=== PATIENT | female | born 1940 | race Caucasian/White ===

== ENCOUNTER 2016-04-02 20:04 | Inpatient (IN) ==
[2016-04-02] MEDS ORDERED: 0.9 % Sodium Chloride 500 ML IVC ONE (20:35)
[2016-04-02] MEDS ORDERED: Ondansetron 4 MG/2 ML VIAL IVP ONE (20:35)
--- NOTE | 2016-04-02 20:36 | Emergency Department Note ---
Disposition Clinical Impression: Hyperkalemia, Acute on chronic renal failure Disposition: Admitted As Inpatient Condition: Fair Referrals: NO,PCP [Non-Partnered Physician] - Forms: ED Satisfaction Letter Time of Disposition: 22:11 Nausea/Vomiting/Diarrhea HPI - General Chief complaint: ED Nausea/Vomiting/Diarrhea Stated complaint: n/v X2 days Time Seen by Provider: 04/02/16 20:09 Source: patient, EMS Nursing Notes Reviewed: Yes Vital Signs Reviewed: Yes - History of Present Illness HPI Narrative: Patient complaining of 3 episodes of vomiting today. She denies any abdominal pain. She denies any fevers. She denies any hematemesis. She has taken Zofran at home but states she vomited the pill back up. She states she is unable to keep any fluids or solids down. - Related Data Home Medications Medication Instructions Recorded Confirmed Cholecalciferol (Vitamin D3) 50,000 unit PO 2XW 11/02/14 04/02/16 [Vitamin D3] Magnesium Oxide [Magnesium] 400 mg PO BID 11/02/14 04/02/16 Ipratropium/Albuterol Neb [Duoneb] 3 ml IH Q4HR PRN 04/26/15 04/02/16 Cyanocobalamin (Vitamin B-12) 1,000 mcg PO DAILY 09/03/15 04/02/16 [Vitamin B12] Zinc Sulfate 220 mg PO BID 09/03/15 04/02/16 Insulin DETEMIR [Levemir Flextouch] 18 unit SQ BID 10/07/15 04/02/16 Insulin LISPRO [Humalog Kwikpen 0 unit SQ ACHS 10/07/15 04/02/16 U-100] Lactulose 15 ml PO TID PRN 10/07/15 04/02/16 Levothyroxine [Synthroid] 100 mcg PO QAM 10/07/15 04/02/16 Pantoprazole Sodium [Protonix] 40 mg PO DAILY 10/07/15 04/02/16 Acetaminophen with Codeine 1 tab PO Q6H PRN 12/22/15 04/02/16 [Acetaminophen-Cod #4 Tablet] Oxygen 2 l NS AD 12/22/15 04/02/16 Ondansetron ODT [Zofran ODT] 4 mg SL TID PRN 04/02/16 04/02/16 Ranitidine HCl [Ranitidine HCl] 150 mg PO BID 04/02/16 04/02/16 Previous Rx's Medication Instructions Recorded Aspirin 81 mg PO DAILY 30 Days 11/08/14 Rifaximin [Xifaxan] 550 mg PO BID #60 tablet 05/01/15 Allergies Allergy/AdvReac Type Severity Reaction Status Date / Time No Known Allergies Allergy Verified 06/29/15 16:22 Review of Systems: Patient denies any fevers however reports an occasional chill. She denies any headaches or visual changes. She denies any syncope. She does report 3 episodes of vomiting today. She states she is nauseated at this time. She denies any hematemesis. She denies any shortness of breath or chest pain. She denies any abdominal pain. She denies any diarrhea. She reports her abdomen appears as normal after she has had a paracentesis. She denies any pain or swelling in any of her extremities. She denies any trouble with constipation and states that her last bowel movement was this morning. She denies any hematochezia or melena. All systems ED: reviewed and negative except as stated. Past Medical History - Past Medical History Medical history: Reports: arthritis, cirrhosis, COPD, dementia, diabetes, GERD, glaucoma, hepatitis, hyperlipidemia, hypertension, liver disease, osteoporosis, renal disease, thyroid disease Surgical history: Reports: herniorrhaphy, other Psychiatric history: Reports: no psych history OFFICE SYSTEM ANALYST history: Reports: non-contributory - Social History Smoking Status: Never smoker Smokeless Tobacco Status: No Alcohol use: Reports: none Drug use: Reports: none Physical Exam - General Limitations: no limitations General appearance: alert, in no apparent distress - Head Head exam: atraumatic, normocephalic, normal inspection - Eye Eye exam: Present: normal appearance, PERRL, EOMI. Absent: scleral icterus - ENT ENT exam: normal exam, normal oropharynx, mucous membranes moist - Neck Neck exam: Present: normal inspection, full ROM, trachea midline - Chest Chest inspection: Present: normal inspection, symmetric chest wall rise. Absent : tenderness - Respiratory Respiratory exam: Present: normal lung sounds bilaterally. Absent: respiratory distress - Cardiovascular Cardiovascular exam: Present: regular rate, normal rhythm, normal heart sounds - Abdominal Exam Abdominal exam: Present: soft, Non-Tender (No pain at rest or on palpation T4 shallow.), normal bowel sounds, other (Patient reports abdomen appears normal to her.). Absent: tenderness, distention, guarding, rebound, rigidity - Extremities Exam Extremities exam: Present: normal inspection, full ROM. Absent: tenderness, pedal edema - Back Exam Back exam: Present: normal inspection, full ROM. Absent: tenderness - Neurological Exam Neurological exam: Present: alert, oriented X3 - Psychiatric Psychiatric exam: Present: normal affect, normal mood - Skin Skin exam: Present: warm, dry, intact, normal color. Absent: rash, cyanosis Course Course Narrative: Female patient with a history of ascites that a paracentesis every Wednesday presenting to the emergency department with 3 episodes of vomiting today. She denies any fever or abdominal pain. She did have paracentesis on Wednesday. Her abdomen is somewhat distended but patient states this is normal for her. She does have a history of cirrhosis. She does not appear jaundiced at this time. She is resting in bed in no apparent distress. On palpation of her abdomen it is soft and nontender. She denies any diarrhea. She states she has tried Zofran but was unable to keep the pill down. We will treat patient's nausea with Zofran while she is here. We will also give patient a small fluid bolus. We will do basic abdominal labs. - Reevaluation(s) Reevaluation #1: Patient's hemoglobin as low as is her white count. She has an increased creatinine we will admit patient for acute on chronic renal disease as well as hyperkalemia. We have started patient on insulin and glucose will she is here as well as Kayexalate. We have given her calcium gluconate. We will start patient on a bicarbonate drip per Dr. Vences's request. Time: 22:02 Vital Signs Temperature 97.8 F 04/02/16 20:10 Pulse Rate 77 04/02/16 20:10 Respiratory Rate 18 04/02/16 20:10 Blood Pressure 144/62 04/02/16 20:10 O2 Sat by Pulse Oximetry 98 04/02/16 20:10 Temperature 97.8 F 04/02/16 20:10 Pulse Rate 76 04/02/16 20:13 Respiratory Rate 18 04/02/16 20:13 Blood Pressure 162/62 04/02/16 20:13 O2 Sat by Pulse Oximetry 100 04/02/16 20:13 Oxygen Delivery Oxygen Delivery Nasal Cannula Nausea/Vomiting/Diarrhea - Medical Records Medical records reviewed: Yes I reviewed the patient's medical records. - Lab Data Lab results reviewed: Yes I reviewed the patient's lab results. Result diagrams: 04/02/16 20:58 04/02/16 20:58 Lab Results 04/02/16 04/02/16 04/02/16 Range/Units 20:58 20:58 21:28 WBC 4.0 L (4.3-11.1) K/mcL RBC 2.76 L (3.82-4.97) M/mcL Hgb 7.6 L (11.5-15.4) g/dL Hct 25.5 L (35.3-44.9) % MCV 92.4 (83.0-100.0) fL MCH 27.5 L (28.0-33.3) pg MCHC 29.8 L (31.6-35.5) g/dL RDW 17.4 H (11.5-14.5) % Plt Count 79 L (140-400) K/mcL MPV 10.3 (9.4-12.4) fL Immature Gran % 0.2 (0-4) % Seg Neutrophils % 71.1 % Lymphocytes % 13.9 % Monocytes % 11.4 % Eosinophils % 2.7 % Basophils % 0.7 % Neutrophils # 2.8 (1.6-8.9) K/mcL Lymphocytes # 0.6 (0.6-4.6) K/mcL Monocytes # 0.5 (0.0-1.3) K/mcL Eosinophils # 0.1 (0.0-0.6) K/mcL Basophils # 0.0 (0.0-0.2) K/mcL Immature Plt Fraction 2.1 (1.1-6.1) % Sodium 139 (136-145) mEq/L Potassium 6.2 H (3.5-4.5) mEq/L Chloride 109 (98-109) mEq/L Carbon Dioxide 21 (19-29) mEq/L BUN 86 H (7-20) mg/dL Creatinine 3.37 H (0.57-1.11) mg/dL Est GFR ( Amer) 16 L (> 60) Est GFR (Non-Af Amer) 13 L (> 60) BUN/Creatinine Ratio 26 (6-26) Glucose 143 H (70-99) mg/dL Calculated Osmolality 317 H (280-300) Calcium 8.3 L (8.6-10.8) mg/dL Total Bilirubin 1.4 H (0.2-1.2) mg/dL AST 17 (5-34) Units/L ALT 9 (0-55) Units/L Alkaline Phosphatase 125 (38-126) Units/L Serum Total Protein 6.3 (6.0-8.3) g/dL Albumin 3.2 L (3.5-5.0) g/dL Globulin 3.1 (2.4-3.5) g/dL Albumin/Globulin Ratio 1.0 L (1.1-2.2) Lipase 19 (8-78) Units/L Urine Color Yellow (Yellow) Urine Clarity Clear (Clear) Urine pH 6.0 (5.0-8.0) pH Units Ur Specific [place] 1.020 (1.010-1.025) Urine Protein Negative (Neg-Trace) mg/dL Urine Glucose (UA) Normal (Normal) mg/dL Urine Ketones Negative (Negative) mg/dL Urine Blood Trace-intact H (Negative) Urine Nitrite Negative (Negative) Urine Bilirubin Negative (Negative) Urine Urobilinogen Normal (Normal) mg/dL Ur Leukocyte Esterase Trace H (Negative) Urine Microscopic WBC 0-3 (0-3) per hpf Ur Squamous Epith Cells Many H (None-Few) per lpf Urine Bacteria Moderate H (None-Few) per hpf Urine Yeast Moderate H (None Seen) per hpf Ur Culture Indicated? YES A (NO) - Radiology Data Radiology results reviewed: Yes I reviewed the patient's radiology results. - EKG Data EKG attestation: Yes I reviewed and interpreted this EKG. EKG results narrative: Normal sinus rhythm at a rate of 73. HI interval is 150. QRS duration is 112. QT is 445. QTC is 471. She does have an increased QT segment. There are no significant changes from previous EKG dated 02/03/2016. There are no signs of acute ischemia. I do not appreciate sign waves or peak T waves.
[2016-04-02 21:05] LABS: Basophils % 0.7 %; Eosinophils # 0.1 K/mcL (0.0-0.6); Eosinophils % 2.7 %; Hematocrit 25.5 % (35.3-44.9); Hemoglobin 7.6 g/dL (11.5-15.4); Immature Granulocytes % 0.2 % (0-4); Immature Platelets 2.1 % (1.1-6.1); Lymphocytes # 0.6 K/mcL (0.6-4.6); Lymphocytes % 13.9 %; Mean Corpuscular HGB Conc 29.8 g/dL (31.6-35.5); Mean Corpuscular Hemoglobin 27.5 pg (28.0-33.3); Mean Corpuscular Volume 92.4 fL (83.0-100.0); Mean Platelet Volume 10.3 fL (9.4-12.4); Monocytes # 0.5 K/mcL (0.0-1.3); Monocytes % 11.4 %; Red Blood Count 2.76 M/mcL (3.82-4.97); Red Cell Distribution Width 17.4 % (11.5-14.5); Segmented Neutrophils % 71.1 %
[2016-04-02 21:11] LABS: Neutrophils # 2.8 K/mcL (1.6-8.9); Platelet Count 79 K/mcL (140-400)
[2016-04-02 21:18] LABS: Albumin 3.2 g/dL (3.5-5.0); Bilirubin,Total 1.4 mg/dL (0.2-1.2); Calcium 8.3 mg/dL (8.6-10.8); Globulin 3.1 g/dL (2.4-3.5); Potassium 6.2 mEq/L (3.5-4.5); Total Protein 6.3 g/dL (6.0-8.3)
[2016-04-02] MEDS ORDERED: Calcium Gluconate 1,000 MG in D5% in Water 100 ML IVPB ONE (21:24)
[2016-04-02] MEDS ORDERED: Insulin Human Regular 10 UNIT in 0.9 % Sodium Chloride 10 ML IV ONE (21:25)
[2016-04-02] MEDS ORDERED: *HR* Dextrose 50 % in Water (Syg) 50 ML SYRINGE IVP ONE (21:26)
[2016-04-02 21:35] LABS: Bilirubin,Urine Negative (Negative); Blood,Urine Trace-intact (Negative); Clarity,Urine Clear (Clear); Color,Urine Yellow (Yellow); Glucose,Urine (UA) Normal (Normal); Ketones,Urine Negative (Negative); Leukocyte Esterase,Urine Trace (Negative); Nitrite,Urine Negative (Negative); Protein,Urine Negative (Neg-Trace); Urobilinogen,Urine Normal (Normal)
[2016-04-02 21:54] LABS: Squamous Epithelial Cell,Urine Many per lpf (None-Few); Yeast,Urine Moderate per hpf (None Seen)
[2016-04-02 21:55] LABS: Bacteria,Urine Moderate per hpf (None-Few); WBC,Urine 0-3 per hpf (0-3)
--- NOTE | 2016-04-02 22:08 | Emergency Department Note ---
START Narrative - START START: I examined this patient and my medical decision-making was reviewed with the CHARGE HISTOTECHNOLOGIST/PA/Advanced Practice Nurse/Resident Physician. I agree with the documented findings, disposition and treatment plan as described except to the extent set forth below. Patient emergency department with nausea and vomiting. Onset 2 days ago. Accompanied by son. Generalized weakness. No diarrhea no fever. Patient is a history of cirrhosis with weekly paracenteses. Exam shows awake and alert. Her abdomen soft. She has no tenderness. Afebrile and nontoxic appearing. Plan. Patient states some IV fluids. She is showing an elevation of her baseline creatinine and elevated potassium. She is given hyperkalemia cocktail. EKG has no peak T waves. Unchanged from her baseline. Medical medicine. 30 minutes critical care exclusive of separately billable procedures.
[2016-04-02] MEDS: Sodium Bicarbonate 75 MEQ in 0.45 % Sodium Chloride 1,000 ML IVC SCH (22:44)
--- NOTE | 2016-04-02 23:54 | Internal Med History&Physical ---
Date of Encounter: 04/03/16 Time of Encounter: 23:30 Assessment and Plan (1) Hyperkalemia Current visit: Yes Status: Acute Presented with potassium of 6.2, possibly secondary to fluid shifts due to repeated paracentesis Will start Bicarbonate drip and had one dose of Ca-gluconate/kayexalate administered in the ED, will monitor for bowel movements Recheck BMP in the AM for resolution of potassium Obtain Mg and phosphorus levels (2) Anemia Current visit: No Status: Chronic Patient's anemia has been known by GI and she is close to her baseline No signs/symptoms of active bleeding at this time Will type and screen in case she needs transfusions Repeat Hb in AM Qualifiers: Qualified Code(s): D64.9 - Anemia, unspecified (3) Acute worsening of stage 4 chronic kidney disease Current visit: Yes Status: Acute Likely secondary to dehydration from recent nausea/vomiting Hydration with bicarbonate drip as above, recheck BMP in AM avoid nephrotoxic agents and monitor electrolytes (4) Cirrhosis Current visit: No Status: Chronic She is being managed outpatient by GI with weekly paracentesis Qualifiers: Hepatic cirrhosis type: unspecified hepatic cirrhosis Ascites presence: with ascites Qualified Code(s): K74.60 - Unspecified cirrhosis of liver (5) Thrombocytopenia Current visit: No Status: Chronic Stable, at baseline No signs of active bleed (6) COPD (chronic obstructive pulmonary disease) Current visit: Yes Status: Chronic No shortness of breath/sputum production Continue with home dose of 2 L oxygen and breathing treatments Qualifiers: Qualified Code(s): J44.9 - Chronic obstructive pulmonary disease, unspecified (7) Insulin dependent diabetes mellitus Current visit: No Status: Chronic Start on low dose SSI ACHS (8) DVT prophylaxis Current visit: No Status: Acute SCDs in setting of anemia/thrombocytopenia Internal Medicine - H&P: HPI Chief complaint: Nausea vomiting Admitted From: Home Plans for Post Hospital Care: Home History of present illness: Ms. Flores is a 75 year old female who presents to the emergency room for nausea and vomiting. She has a history of dementia and son, power of commonwealth attorney, is at bedside and able to assist with history. States that patient started vomiting dark brown emesis earlier today and this was not relieved with Zofran as she cannot keep any medications down. She also admits to having a poor appetite and not eating or drinking much the last few days. She does not complain of any abdominal pain and has no blood in her stool or urine. She has history of cirrhosis and receives weekly paracentesis for recurrent ascites as an outpatient in . Patient denies any chest pain, shortness of breath, fevers , chills. She denies any history of cancers. Patient does have history of acute encephalopathy secondary to cirrhosis, however son states that her mental status is appropriate and at baseline. Past Med Surg Social Fam HX - Past Medical History Medical history: arthritis, cirrhosis, COPD, dementia, diabetes, GERD, glaucoma , hepatitis, hyperlipidemia, hypertension, liver disease, osteoporosis, renal disease, thyroid disease Psychiatric history: no psych history - Past Surgical History Surgical History: herniorrhaphy, other - Social History Smoking Status: Never smoker Smokeless Tobacco Status: No Alcohol use: none Drug use: none - Family History Sister Adopted: No Living Status: Hx Family Cardiac Disorders: Yes Hx Family Respiratory Disorders: Yes Hx Family Cancer: Yes Hx Family GI Disorders: Yes (cirrhosis) Hx Family Endocrine Disorder: No Hx Family Neuromuscular Disorders: No Hx Family Neurologic Disorders: No Hx Family HEENT Disorders: No Hx Family Autoimmune Disorders: No Mother Adopted: No Family Member Ethnicity: Non- Living Status: Hx Family Cardiac Disorders: Yes Father Hx Family Cardiac Disorders: Yes (MYOCARDIAL INFARCTION.) Son Adopted: [place]: Ok Flores Age: 55 Family Member Ethnicity: Non- Living Status: Still Living Hx Family Cardiac Disorders: No Hx Family Respiratory Disorders: No Hx Family Cancer: No Hx Family GI Disorders: No Hx Family Genitourinary Disorders: No Hx Family Endocrine Disorder: No Hx Family Musculoskeletal Disorders: Yes Hx Family Neuromuscular Disorders: Yes Hx Family Neurologic Disorders: No Hx Family HEENT Disorders: No Hx Family Autoimmune Disorders: No Hx Family Reproductive Disorders: No Hx Family Psychosocial Disorders: No Hx Family Medical Disorders: No Internal Medicine - H&P: Meds Cholecalciferol (Vitamin D3) [Vitamin D3] 50,000 unit PO 2XW 11/02/14 [History] Magnesium Oxide [Magnesium] 400 mg PO BID 11/02/14 [History] Aspirin 81 mg PO DAILY 30 Days 11/08/14 [Rx] Ipratropium/Albuterol Neb [Duoneb] 3 ml IH Q4HR PRN 04/26/15 [History] Rifaximin [Xifaxan] 550 mg PO BID #60 tablet 05/01/15 [Rx] Cyanocobalamin (Vitamin B-12) [Vitamin B12] 1,000 mcg PO DAILY 09/03/15 [History ] Zinc Sulfate 220 mg PO BID 09/03/15 [History] Insulin DETEMIR [Levemir Flextouch] 18 unit SQ BID 10/07/15 [History] Insulin LISPRO [Humalog Kwikpen U-100] 0 unit SQ ACHS 10/07/15 [History] Lactulose 15 ml PO TID PRN 10/07/15 [History] Levothyroxine [Synthroid] 100 mcg PO QAM 10/07/15 [History] Pantoprazole Sodium [Protonix] 40 mg PO DAILY 10/07/15 [History] Acetaminophen with Codeine [Acetaminophen-Cod #4 Tablet] 1 tab PO Q6H PRN [History] Oxygen 2 l NS AD 12/22/15 [History] Ondansetron ODT [Zofran ODT] 4 mg SL TID PRN 04/02/16 [History] Ranitidine HCl [Ranitidine HCl] 150 mg PO BID 04/02/16 [History] Allergies No Known Allergies Allergy (Verified 06/29/15 16:22) All Systems PM: A 10-system review of systems was performed and is negative for pertinent findings except as documented above in the HPI. - Constitutional Constitutional: no chills, no fever(s), no night sweats - EENT Eyes: no change in vision, no discharge, no pain, no photophobia Ears: no ear discharge, no ear pain, no tinnitus Nose, mouth and throat: no dysphagia, no nasal discharge, no neck pain, no sore throat - Cardiovascular Cardiovascular ROS IM: no chest pain, no diaphoresis, no dyspnea, no lightheadedness, no palpitations, no syncope - Respiratory Respiratory: no cough, no dyspnea, no wheezing, no excessive phlegm production - Gastrointestinal Gastrointestinal: nausea, vomiting, no abdominal pain, no diarrhea, no hematemesis, no hematochezia, no melena - Genitourinary Genitourinary: no change in urinary stream, no dysuria, no flank pain, no hematuria - Musculoskeletal Musculoskeletal ROS IM: no numbness, no tingling - Integumentary Integumentary IM: no rash, no unusual bruising - Neurological Neurological ROS: no confusion, no convulsions, no focal weakness, no numbness, no tingling, no tremor(s) - Hematologic/Lymphatic Hematologic/Lymphatic: no easy bruising - Constitutional Vitals: Temp Pulse Resp BP Pulse Ox 98.1 F 79 18 152/74 97 04/02/16 23:26 04/02/16 23:26 04/02/16 23:26 04/02/16 23:26 04/02/16 23:40 General appearance: Present: cooperative, A&O X 3, pleasant, no acute distress, answers questions appropriately - Head Head exam: Present: atraumatic, normocephalic - Eye Eye exam: Present: PERRL, conjuntiva pink, sclera anicteric - Neck Neck exam general surgery: Present: supple, trachea midline. Absent: lymphadenopathy - Respiratory Respiratory exam: Present: wheezes. Absent: accessory muscle use, rales, rhonchi - Cardiovascular Cardiovascular exam: Present: RRR, +S1, +S2. Absent: diastolic murmur, gallop, rubs, systolic murmur - GI/Abdominal GI/Abdominal exam: Present: distended, normal bowel sounds, soft, no peritoneal signs. Absent: tenderness - Extremities Exam Extremities exam: Present: warm, radial pulses palpable and symetrical. Absent : calf tenderness, cyanotic, pedal edema - Neurological Exam Neurological exam: Present: alert, oriented X3, no focal deficits. Absent: pronater drift, facial droop, speech deficit - Skin Skin exam: Present: dry, intact Internal Med - H&P Results - Labs CBC & Chem 7: 04/03/16 02:31 04/03/16 02:31
[2016-04-03] MEDS ORDERED: Ondansetron 4 MG/2 ML VIAL IVP PRN (00:08)
[2016-04-03] MEDS ORDERED: *HR* Dextrose 50 % in Water (Syg) 50 ML SYRINGE IVP PRN (00:08)
[2016-04-03] MEDS ORDERED: Dextrose Gel 15 GM PO PRN ×2 (00:08)
[2016-04-03] MEDS ORDERED: Naloxone 0.4 MG/ML INJ IVP PRN (00:08)
[2016-04-03] MEDS ORDERED: D5% in Water 1,000 ML IV PRN (00:08)
[2016-04-03] MEDS ORDERED: Lactulose Oral Soln 20 GM/30 ML UDC PO PRN (00:13)
[2016-04-03] MEDS ORDERED: ACETAMINOPHEN COD PO PRN (00:13)
[2016-04-03 02:40] LABS: Basophils % 0.4 %; Eosinophils # 0.1 K/mcL (0.0-0.6); Hematocrit 21.7 % (35.3-44.9); Hemoglobin 6.6 g/dL (11.5-15.4); Immature Granulocytes % 0.7 % (0-4); Immature Platelets 1.8 % (1.1-6.1); Lymphocytes # 0.5 K/mcL (0.6-4.6); Lymphocytes % 18.2 %; Mean Corpuscular HGB Conc 30.4 g/dL (31.6-35.5); Mean Corpuscular Hemoglobin 28.1 pg (28.0-33.3); Mean Corpuscular Volume 92.3 fL (83.0-100.0); Mean Platelet Volume 10.5 fL (9.4-12.4); Monocytes # 0.4 K/mcL (0.0-1.3); Monocytes % 12.8 %; Neutrophils # 1.7 K/mcL (1.6-8.9); Platelet Count 64 K/mcL (140-400); Red Blood Count 2.35 M/mcL (3.82-4.97); Red Cell Distribution Width 17.3 % (11.5-14.5); Segmented Neutrophils % 63.9 %
[2016-04-03 02:44] LABS: INR 1.3; Prothrombin Time 14.1 Seconds (9.4-12.1)
[2016-04-03 02:52] LABS: Magnesium 3.1 mg/dL (1.6-2.6); Phosphorous 4.2 mg/dL (2.3-4.7)
[2016-04-03 02:54] LABS: Potassium 4.8 mEq/L (3.5-4.5)
[2016-04-03] MEDS ORDERED: 0.9 % Sodium Chloride 250 ML ONE ×2 (04:29→13:26)
[2016-04-03] MEDS: Ipratropium/Albuterol Neb 3 ML IH SCH ×2 (04:46→10:03)
[2016-04-03] MEDS ORDERED: Aspirin 81 MG TAB.CHEW PO SCH (09:00)
[2016-04-03] MEDS ORDERED: (Rifaximin [Xifaxan] 550 MG) PO SCH (09:00)
[2016-04-03] MEDS ORDERED: Pantoprazole 40 MG VIAL IVP SCH (09:00)
[2016-04-03] MEDS: Budesonide/Formoterol 80/4.5 MDI IH SCH ×2 (10:02→23:18)
[2016-04-03] MEDS: Insulin LISPRO 300 UNITS/3 ML VIAL SQ SCH ×3 (10:49→16:33)
[2016-04-03] MEDS: Sodium Bicarbonate 75 MEQ in 0.45 % Sodium Chloride 1,000 ML IVC SCH (10:49)
[2016-04-03] MEDS ORDERED: Ipratropium/Albuterol Neb 3 ML IH PRN (11:51)
--- NOTE | 2016-04-03 11:54 | Internal Med Progress Note ---
Date of Encounter: 04/03/16 Time of Encounter: 11:00 - Assessment and plan (1) Acute worsening of stage 4 chronic kidney disease Current Visit: Yes Status: Acute Assessment and plan: Renal function is improving. Continue IV hydration. Monitor input and output. Avoid nephrotoxic agents. Moderate risk for complications. (2) Hyperkalemia Current Visit: Yes Status: Acute Assessment and plan: Improving. Continue IV fluids. Will stop sodium bicarbonate. Change to normal saline. Follow potassium levels. (3) COPD (chronic obstructive pulmonary disease) Current Visit: Yes Status: Chronic Assessment and plan: Not in acute exacerbation. on nebs when necessary. O2 supplementation as needed Qualifiers: COPD type: chronic bronchitis Chronic bronchitis type: simple Qualified Code(s): J41.0 - Simple chronic bronchitis (4) Cirrhosis Current Visit: No Status: Chronic Assessment and plan: With thrombocytopenia and ascites. Continue rifaximin and lactulose. Patient not on diuretics. Will check ammonia levels. Qualifiers: Hepatic cirrhosis type: other cirrhosis Qualified Code(s): K74.69 - Other cirrhosis of liver (5) DVT prophylaxis Current Visit: No Status: Acute Assessment and plan: With SCDs. Not on medical anticoagulation due to thrombocytopenia. (6) Anemia of chronic disease Current Visit: No Status: Chronic Assessment and plan: Chronic. Worse today. Hemoglobin 6.6. Will transfuse packed red blood cells. - Subjective Interval history: Patient is feeling better today. Denies any nausea or vomiting. No chest pain or abdominal pain. She is tolerating clear liquid well. - Constitutional Vitals: Temp Pulse Resp BP Pulse Ox 97.5 F L 81 18 150/64 100 04/03/16 08:15 04/03/16 08:15 04/03/16 08:15 04/03/16 08:15 04/03/16 08:15 General appearance: Present: cooperative, A&O X 3, pleasant, no acute distress, answers questions appropriately - Respiratory Respiratory exam: Present: CTAB. Absent: accessory muscle use, rales, rhonchi, wheezes - Cardiovascular Cardiovascular exam: Present: RRR, +S1, +S2. Absent: diastolic murmur, gallop, rubs, systolic murmur - GI/Abdominal GI/Abdominal exam: Present: normal bowel sounds, soft, no peritoneal signs. Absent: distended, tenderness - Extremities Exam Extremities exam: Present: warm, radial pulses palpable and symetrical. Absent : calf tenderness, cyanotic, pedal edema - Neurological Exam Neurological exam: Present: alert, oriented X3, no focal deficits. Absent: facial droop, speech deficit - Skin Skin exam: Present: dry, intact Internal Medicine: Result - Labs CBC & Chem 7: 04/03/16 02:31 04/03/16 02:31 Labs: Short CBC 04/03/16 Range/Units 02:31 WBC 2.7 L (4.3-11.1) K/mcL Hgb 6.6 L (11.5-15.4) g/dL Hct 21.7 L (35.3-44.9) % Plt Count 64 L (140-400) K/mcL Neutrophils # 1.7 (1.6-8.9) K/mcL BMP 04/03/16 02:31 Sodium 140 Potassium 4.8 H D Chloride 111 H Carbon Dioxide 19 BUN 63 H D Creatinine 2.94 H Glucose 113 H Calcium 8.0 L - ABG Interpretation ABG results: PT/INR, D-dimer PT 14.1 Seconds (9.4-12.1) H 04/03/16 02:31 Consult Discharge Plan - Plan Referrals: Travis Deng Jr, MD [Primary Care Provider] - - Attending Attestation This document has been at least partially created by [employer] recognition technology by Dr. Monreal. Errors in grammar, wording or other phrases may exist. If errors are found after the documentation is signed, they will be addressed individually in the addendum section of this document when appropriate.
[2016-04-03] MEDS ORDERED: D5% in 0.45% NACL 1,000 ML IVC SCH (12:45)
--- NOTE | 2016-04-03 17:35 | Electrocardiograph Report ---
[place] [address] Test Date: 2016-04-02 Pat Name: Nellie Flores Department: 104 Room: 2A24 Gender: F Assistant Clinical Nurse Manager: : [id number] Requested By: Carmela Nelson Order Number: [id number] Reading MD: Saima Mckinnon Measurements Intervals [place] Rate: 73 P: 29 ME: 150 QRS: -31 QRSD: 112 T: 60 QT: 445 QTc: 471 Interpretive Statements SINUS RHYTHM LEFT AXIS DEVIATION INTRAVENTRICULAR CONDUCTION DELAY NONSPECIFIC T-WAVE ABNORMALITY PROLONGED QT INTERVAL Electronically Signed On 04-03-2016 17:34:02 EST by Saima Mckinnon
[2016-04-03] MEDS ORDERED: Insulin LISPRO 300 UNITS/3 ML VIAL SQ SCH (21:00)
[2016-04-04 04:44] LABS: Basophils % 0.6 %; Immature Granulocytes % 0.3 % (0-4)
[2016-04-04 04:46] LABS: Eosinophils # 0.2 K/mcL (0.0-0.6); Eosinophils % 4.7 %; Hematocrit 25.1 % (35.3-44.9); Hemoglobin 8.1 g/dL (11.5-15.4); Immature Platelets 2.9 % (1.1-6.1); Lymphocytes # 0.6 K/mcL (0.6-4.6); Lymphocytes % 19.9 %; Mean Corpuscular HGB Conc 32.3 g/dL (31.6-35.5); Mean Corpuscular Hemoglobin 28.9 pg (28.0-33.3); Mean Corpuscular Volume 89.6 fL (83.0-100.0); Mean Platelet Volume 10.6 fL (9.4-12.4); Monocytes # 0.5 K/mcL (0.0-1.3); Monocytes % 15.2 %; Neutrophils # 1.9 K/mcL (1.6-8.9); Red Cell Distribution Width 16.9 % (11.5-14.5); Segmented Neutrophils % 59.3 %
[2016-04-04 04:58] LABS: Platelet Count 60 K/mcL (140-400)
[2016-04-04 05:01] LABS: Calcium 7.6 mg/dL (8.6-10.8); Potassium 4.1 mEq/L (3.5-4.5)
[2016-04-04] MEDS: Insulin LISPRO 300 UNITS/3 ML VIAL SQ SCH ×2 (07:55→11:54)
[2016-04-04] MEDS: Budesonide/Formoterol 80/4.5 MDI IH SCH (08:04)
[2016-04-04] MEDS ORDERED: Aspirin Enteric Coated 81 MG Tablet PO SCH (09:00)
[2016-04-04] MEDS ORDERED: D5% in 0.45% NACL 1,000 ML IVC SCH (11:30)
[2016-04-04] MEDS ORDERED: 0.9 % Sodium Chloride 1,000 ML IVC SCH (11:30)
--- NOTE | 2016-04-04 11:32 | Discharge Summary ---
Date of Encounter: 04/04/16 Time of Encounter: 11:29 - Discharge Diagnosis (1) Acute worsening of stage 4 chronic kidney disease Priority: Primary Status: Acute (2) Hyperkalemia Priority: Secondary Status: Acute (3) COPD (chronic obstructive pulmonary disease) Priority: Secondary Status: Chronic Qualifiers: COPD type: chronic bronchitis Chronic bronchitis type: simple Qualified Code(s): J41.0 - Simple chronic bronchitis (4) Cirrhosis Priority: Secondary Status: Chronic Qualifiers: Hepatic cirrhosis type: other cirrhosis Qualified Code(s): K74.69 - Other cirrhosis of liver (5) DVT prophylaxis Priority: Secondary Status: Acute (6) Anemia of chronic disease Priority: Secondary Status: Chronic - Discharge Medications Home Medications: Cholecalciferol (Vitamin D3) [Vitamin D3] 50,000 unit PO 2XW 11/02/14 [History] Magnesium Oxide [Magnesium] 400 mg PO BID 11/02/14 [History] Aspirin 81 mg PO DAILY 30 Days 11/08/14 [Rx] Ipratropium/Albuterol Neb [Duoneb] 3 ml IH Q4HR PRN 04/26/15 [History] Rifaximin [Xifaxan] 550 mg PO BID #60 tablet 05/01/15 [Rx] Cyanocobalamin (Vitamin B-12) [Vitamin B12] 1,000 mcg PO DAILY 09/03/15 [History ] Zinc Sulfate 220 mg PO BID 09/03/15 [History] Insulin DETEMIR [Levemir Flextouch] 18 unit SQ BID 10/07/15 [History] Insulin LISPRO [Humalog Kwikpen U-100] 0 unit SQ ACHS 10/07/15 [History] Lactulose 15 ml PO TID PRN 10/07/15 [History] Levothyroxine [Synthroid] 100 mcg PO QAM 10/07/15 [History] Pantoprazole Sodium [Protonix] 40 mg PO DAILY 10/07/15 [History] Acetaminophen with Codeine [Acetaminophen-Cod #4 Tablet] 1 tab PO Q6H PRN [History] Oxygen 2 l NS AD 12/22/15 [History] Ondansetron ODT [Zofran ODT] 4 mg SL TID PRN 04/02/16 [History] Ranitidine HCl 150 mg PO BID 04/02/16 [History] Allergies/Adverse Reactions: Allergies No Known Allergies Allergy (Verified 06/29/15 16:22) Date of admission: 04/03/16 00:05 Primary care physician: Travis Deng Jr, MD Discharging clinician: Debra Monreal Anticipated date of discharge: 04/04/16 - Patient Status Disposition: Home Health Service Condition: Fair - Discharge Instructions Instructions: Anemia (GEN) Follow Up With: Travis Deng Jr, MD [Primary Care Provider] - (office will call patient for the schedule...) - Diet and Activity Activity: resume usual activities as tolerated Diet: low fat, low cholesterol, low salt diet Hospital course: Ms. Flores is a 75 year old female with history of chronic liver disease and cirrhosis with ascites and chronic kidney disease stage IV was admitted here with acute worsening of renal function and hyperkalemia. She appeared to be dehydrated and was treated with intravenous fluids with improvement in her renal function. Her hyperkalemia has also resolved. She is feeling much better now and is stable to be discharged home with home health. She also has chronic anemia likely related to her chronic kidney disease. Her hemoglobin level at baseline is around 8. Her levels were 6.6 yesterday and she received 2 units of packed red blood cells. This morning hemoglobin is 8.1. She does follow up with GI for her chronic anemia and her chronic liver disease. - Time Spent with Patient Total time spent providing and/or coordinating discharge services: Less than 30 minutes (25 min) - Constitutional Vitals: Temp Pulse Resp BP Pulse Ox 97.7 F 78 18 133/73 100 04/04/16 07:14 04/04/16 07:14 04/04/16 08:04 04/04/16 07:14 04/04/16 08:04 General appearance: Present: cooperative, A&O X 3, pleasant, no acute distress, answers questions appropriately - Respiratory Respiratory exam: Present: CTAB. Absent: accessory muscle use, rales, rhonchi, wheezes - Cardiovascular Cardiovascular exam: Present: RRR, +S1, +S2. Absent: diastolic murmur, gallop, rubs, systolic murmur - GI/Abdominal GI/Abdominal exam: Present: normal bowel sounds, soft, no peritoneal signs. Absent: distended, tenderness - Extremities Exam Extremities exam: Present: warm, radial pulses palpable and symetrical. Absent : calf tenderness, cyanotic, pedal edema - VTE Documentation of Mechanical Device: Intermittent pneumatic compression device - Attending Attestation This document has been at least partially created by [employer] recognition technology by Dr. Monreal. Errors in grammar, wording or other phrases may exist. If errors are found after the documentation is signed, they will be addressed individually in the addendum section of this document when appropriate.
[2016-04-04 12:07] VITALS: BP 150/65
--- NOTE | 2016-04-04 12:18 | Physician Discharge Referral ---
Home Health/Hosp Referral Info Transfer to: Home Health Provider in Charge Post Discharge: PCP - Diagnosis (1) Acute worsening of stage 4 chronic kidney disease Priority: Primary Status: Acute (2) Hyperkalemia Priority: Secondary Status: Acute (3) COPD (chronic obstructive pulmonary disease) Priority: Secondary Status: Chronic (4) Cirrhosis Priority: Secondary Status: Chronic (5) DVT prophylaxis Priority: Secondary Status: Acute (6) Anemia of chronic disease Priority: Secondary Status: Chronic - Respiratory Orders Oxygen / L per min (2) Smoking Cessation: Smoking cessation has been advised. For more information, call the [place] Tobacco Quit Line at 0-281-EEJG-NOW. - Diet/Nutrition Diet/Nutrition Orders: Cardiac (and diabetic) - Activity Activity Orders: Walker - Services Needed Following services are medically necessary services: Nursing, Physical Therapy, Occupational Therapy - Transfer Medications Home Medications: Cholecalciferol (Vitamin D3) [Vitamin D3] 50,000 unit PO 2XW 11/02/14 [History] Magnesium Oxide [Magnesium] 400 mg PO BID 11/02/14 [History] Aspirin 81 mg PO DAILY 30 Days 11/08/14 [Rx] Ipratropium/Albuterol Neb [Duoneb] 3 ml IH Q4HR PRN 04/26/15 [History] Rifaximin [Xifaxan] 550 mg PO BID #60 tablet 05/01/15 [Rx] Cyanocobalamin (Vitamin B-12) [Vitamin B12] 1,000 mcg PO DAILY 09/03/15 [History ] Zinc Sulfate 220 mg PO BID 09/03/15 [History] Insulin DETEMIR [Levemir Flextouch] 18 unit SQ BID 10/07/15 [History] Insulin LISPRO [Humalog Kwikpen U-100] 0 unit SQ ACHS 10/07/15 [History] Lactulose 15 ml PO TID PRN 10/07/15 [History] Levothyroxine [Synthroid] 100 mcg PO QAM 10/07/15 [History] Pantoprazole Sodium [Protonix] 40 mg PO DAILY 10/07/15 [History] Acetaminophen with Codeine [Acetaminophen-Cod #4 Tablet] 1 tab PO Q6H PRN [History] Oxygen 2 l NS AD 12/22/15 [History] Ondansetron ODT [Zofran ODT] 4 mg SL TID PRN 04/02/16 [History] Ranitidine HCl 150 mg PO BID 04/02/16 [History] Allergies/Adverse Reactions: Allergies No Known Allergies Allergy (Verified 06/29/15 16:22) Certification: Further, I certify that my clinical findings support that this patient is homebound (i.e. absences from home require considerable and taxing effort and are for medical reasons or jew services or infrequently or short duration when for other reasons) because: Homebound Reason: Patient requires assistance of a person or device to safely leave home Attestation: My signature below is to certify that this patient is under my care and that I, or nurse practitioner, or a physician's web production assistant working with me, has a face-to -face encounter with this patient.
== END 2016-04-04 13:05 | disposition home health service (06) | DRG 683 ==
LOC: EMEROO 20:04 → 2ANU 20:04
PROVIDERS: ADMIT Family Medicine; ATTEND Internal Medicine

== ENCOUNTER 2016-04-09 09:49 | Inpatient (IN) ==
[2016-04-09 10:20] LABS: Bilirubin,Urine Negative (Negative); Blood,Urine Negative (Negative); Clarity,Urine Cloudy (Clear); Color,Urine Yellow (Yellow); Glucose,Urine (UA) Normal (Normal); Ketones,Urine Negative (Negative); Leukocyte Esterase,Urine Large (Negative); Nitrite,Urine Negative (Negative); PH,Urine 6.5 pH Units (5.0-8.0); Protein,Urine Trace mg/dL (Neg-Trace); Specific Gravity,Urine 1.022 (1.010-1.025); Urobilinogen,Urine Normal (Normal)
[2016-04-09 10:23] LABS: Bacteria,Urine Many per hpf (None-Few); RBC,Urine 0-3 per hpf (0-3); Squamous Epithelial Cell,Urine Many per lpf (None-Few); WBC,Urine TNTC per hpf (0-3)
[2016-04-09 10:32] LABS: Hyaline Casts,Urine Few per lpf (None-Few)
[2016-04-09 10:35] LABS: Basophils % 0.6 %; Eosinophils % 1.1 %; Hematocrit 27.5 % (35.3-44.9); Hemoglobin 8.9 g/dL (11.5-15.4); Immature Granulocytes % 0.3 % (0-4); Lymphocytes # 0.6 K/mcL (0.6-4.6); Lymphocytes % 15.7 %; Mean Corpuscular HGB Conc 32.4 g/dL (31.6-35.5); Mean Corpuscular Volume 89.6 fL (83.0-100.0); Mean Platelet Volume 10.6 fL (9.4-12.4); Monocytes # 0.6 K/mcL (0.0-1.3); Monocytes % 16.3 %; Neutrophils # 2.3 K/mcL (1.6-8.9); Red Blood Count 3.07 M/mcL (3.82-4.97)
[2016-04-09 10:36] LABS: Platelet Count 68 K/mcL (140-400)
[2016-04-09 10:44] LABS: INR 1.3; Prothrombin Time 14.3 Seconds (9.4-12.1)
[2016-04-09 10:47] LABS: Activated Partial Thrombo Time 32.2 Seconds (26.0-36.0)
[2016-04-09 10:52] LABS: Albumin/Globulin Ratio 0.9 (1.1-2.2); Bilirubin,Direct 0.7 mg/dL (0.0-0.5); Bilirubin,Indirect 0.8 mg/dL (0.0-1.2); Bilirubin,Total 1.5 mg/dL (0.2-1.2); Calcium 8.7 mg/dL (8.6-10.8); Globulin 3.2 g/dL (2.4-3.5); Potassium 4.9 mEq/L (3.5-4.5); Total Protein 6.2 g/dL (6.0-8.3)
[2016-04-09 10:58] LABS: Ovalocytes 1+ (Not Present); Platelet Estimate Decreased (Normal)
[2016-04-10 00:31] LABS: ABG HCO3 21.8 mEQ/L (21-27); ABG Oxygen Saturation 99 % (95-98); ABG PCO2 28 mmHg (35-45); ABG PO2 129 mmHg (85-104); ABG TCO2 22.7 mEq/L (20-26)
[2016-04-10 00:34] LABS: Blood Gas FiO2 32 %
[2016-04-10 04:18] LABS: Immature Granulocytes % 0.2 % (0-4); Red Cell Distribution Width 17.2 % (11.5-14.5)
[2016-04-10 04:20] LABS: Basophils % 0.4 %; Eosinophils # 0.1 K/mcL (0.0-0.6); Eosinophils % 1.8 %; Hematocrit 28.6 % (35.3-44.9); Immature Platelets 2.9 % (1.1-6.1); Lymphocytes # 0.5 K/mcL (0.6-4.6); Lymphocytes % 11.8 %; Mean Corpuscular HGB Conc 31.5 g/dL (31.6-35.5); Mean Corpuscular Hemoglobin 28.6 pg (28.0-33.3); Mean Corpuscular Volume 90.8 fL (83.0-100.0); Mean Platelet Volume 10.9 fL (9.4-12.4); Monocytes # 0.6 K/mcL (0.0-1.3); Monocytes % 13.8 %; Neutrophils # 3.2 K/mcL (1.6-8.9); Red Blood Count 3.15 M/mcL (3.82-4.97)
[2016-04-10 04:31] LABS: Platelet Count 61 K/mcL (140-400)
[2016-04-10 04:32] LABS: Calcium 8.6 mg/dL (8.6-10.8); Magnesium 2.2 mg/dL (1.6-2.6)
[2016-04-11 05:23] LABS: Basophils % 1.2 %; Eosinophils # 0.1 K/mcL (0.0-0.6); Eosinophils % 2.8 %; Hematocrit 23.7 % (35.3-44.9); Immature Granulocytes % 0.4 % (0-4); Lymphocytes # 0.6 K/mcL (0.6-4.6); Lymphocytes % 22.5 %; Mean Corpuscular HGB Conc 31.2 g/dL (31.6-35.5); Mean Corpuscular Volume 92.9 fL (83.0-100.0); Mean Platelet Volume 10.2 fL (9.4-12.4); Monocytes # 0.4 K/mcL (0.0-1.3); Monocytes % 16.2 %; Neutrophils # 1.4 K/mcL (1.6-8.9); Red Blood Count 2.55 M/mcL (3.82-4.97); Red Cell Distribution Width 17.2 % (11.5-14.5); Segmented Neutrophils % 56.9 %
[2016-04-11 05:25] LABS: Hemoglobin 7.4 g/dL (11.5-15.4); Platelet Count 51 K/mcL (140-400)
[2016-04-11 05:39] LABS: Calcium 8.3 mg/dL (8.6-10.8); Potassium 3.3 mEq/L (3.5-4.5)
[2016-04-11 21:49] LABS: Hematocrit 25.6 % (35.3-44.9); Hemoglobin 7.9 g/dL (11.5-15.4)
[2016-04-12 03:57] LABS: Hematocrit 27.8 % (35.3-44.9); Hemoglobin 8.7 g/dL (11.5-15.4)
[2016-04-12 04:09] LABS: Calcium 8.3 mg/dL (8.6-10.8); Magnesium 1.9 mg/dL (1.6-2.6); Potassium 3.4 mEq/L (3.5-4.5)
[2016-04-12 14:56] LABS: Hematocrit 27.2 % (35.3-44.9); Hemoglobin 8.5 g/dL (11.5-15.4)
[2016-04-12 14:59] LABS: INR 1.4; Prothrombin Time 14.8 Seconds (9.4-12.1)
[2016-04-12 22:02] LABS: Hematocrit 29.3 % (35.3-44.9); Hemoglobin 9.1 g/dL (11.5-15.4)
[2016-04-13 04:08] LABS: Immature Granulocytes % 0.3 % (0-4); Mean Corpuscular Volume 92.2 fL (83.0-100.0)
[2016-04-13 04:10] LABS: Basophils % 0.9 %; Eosinophils # 0.1 K/mcL (0.0-0.6); Eosinophils % 4.4 %; Hematocrit 27.1 % (35.3-44.9); Hemoglobin 8.6 g/dL (11.5-15.4); Immature Platelets 4.4 % (1.1-6.1); Lymphocytes # 0.7 K/mcL (0.6-4.6); Lymphocytes % 21.3 %; Mean Corpuscular HGB Conc 31.7 g/dL (31.6-35.5); Mean Corpuscular Hemoglobin 29.3 pg (28.0-33.3); Mean Platelet Volume 11.3 fL (9.4-12.4); Monocytes # 0.5 K/mcL (0.0-1.3); Monocytes % 14.4 %; Neutrophils # 1.9 K/mcL (1.6-8.9); Red Blood Count 2.94 M/mcL (3.82-4.97); Red Cell Distribution Width 16.3 % (11.5-14.5); Segmented Neutrophils % 58.7 %
[2016-04-13 04:12] LABS: Platelet Count 60 K/mcL (140-400)
[2016-04-13 04:25] LABS: Calcium 8.3 mg/dL (8.6-10.8); Potassium 3.5 mEq/L (3.5-4.5)
[2016-04-14 03:44] LABS: Basophils % 0.8 %; Hemoglobin 8.9 g/dL (11.5-15.4); Immature Granulocytes % 0.5 % (0-4); Monocytes % 13.1 %
[2016-04-14 03:46] LABS: Eosinophils # 0.2 K/mcL (0.0-0.6); Eosinophils % 4.9 %; Hematocrit 27.8 % (35.3-44.9); Immature Platelets 3.9 % (1.1-6.1); Lymphocytes # 0.8 K/mcL (0.6-4.6); Lymphocytes % 20.4 %; Mean Corpuscular Hemoglobin 29.3 pg (28.0-33.3); Mean Corpuscular Volume 91.4 fL (83.0-100.0); Mean Platelet Volume 10.8 fL (9.4-12.4); Monocytes # 0.5 K/mcL (0.0-1.3); Red Blood Count 3.04 M/mcL (3.82-4.97); Red Cell Distribution Width 16.2 % (11.5-14.5); Segmented Neutrophils % 60.3 %
[2016-04-14 03:49] LABS: Neutrophils # 2.4 K/mcL (1.6-8.9); Platelet Count 71 K/mcL (140-400)
[2016-04-14 04:11] LABS: Calcium 8.2 mg/dL (8.6-10.8); Potassium 3.3 mEq/L (3.5-4.5)
[2016-04-15 06:07] LABS: Basophils % 0.8 %; Hemoglobin 8.9 g/dL (11.5-15.4); Immature Granulocytes % 0.3 % (0-4); Mean Platelet Volume 11.1 fL (9.4-12.4)
[2016-04-15 06:10] LABS: Eosinophils # 0.2 K/mcL (0.0-0.6); Eosinophils % 4.9 %; Immature Platelets 4.5 % (1.1-6.1); Lymphocytes # 0.8 K/mcL (0.6-4.6); Lymphocytes % 19.5 %; Mean Corpuscular HGB Conc 31.8 g/dL (31.6-35.5); Mean Corpuscular Hemoglobin 29.1 pg (28.0-33.3); Mean Corpuscular Volume 91.5 fL (83.0-100.0); Monocytes # 0.5 K/mcL (0.0-1.3); Monocytes % 13.6 %; Neutrophils # 2.4 K/mcL (1.6-8.9); Red Blood Count 3.06 M/mcL (3.82-4.97); Red Cell Distribution Width 16.8 % (11.5-14.5); Segmented Neutrophils % 60.9 %
[2016-04-15 06:12] LABS: Platelet Count 70 K/mcL (140-400)
[2016-04-15 06:13] LABS: INR 1.3; Prothrombin Time 14.5 Seconds (9.4-12.1)
[2016-04-15 06:28] LABS: Albumin 2.6 g/dL (3.5-5.0); Albumin/Globulin Ratio 0.9 (1.1-2.2); Bilirubin,Total 1.1 mg/dL (0.2-1.2); Calcium 8.2 mg/dL (8.6-10.8); Globulin 2.9 g/dL (2.4-3.5); Potassium 3.6 mEq/L (3.5-4.5); Total Protein 5.5 g/dL (6.0-8.3)
[2016-04-15 06:43] LABS: Platelet Estimate Decreased (Normal)
[2016-04-15 06:44] LABS: Anisocytosis 1+ (Not Present); Hypochromasia Present (Not Present)
[2016-04-15 07:23] VITALS: BP 150/69
== END 2016-04-15 10:23 | disposition home or self-care (01) | DRG 433 ==
LOC: EMEROO 09:49 → 2ANU 09:49 → SUATTDRO 13:56 → 2ANU 14:00
PROVIDERS: ADMIT Family Medicine; ATTEND Internal Medicine
PROC: ENDOEBX (2016-04-14 13:00)

== ENCOUNTER 2016-05-19 12:05 | Inpatient (IN) ==
--- NOTE | 2016-05-19 12:28 | Emergency Department Note ---
Disposition Clinical Impression: Confusion, Hepatic encephalopathy, Acute kidney injury, Pancytopenia, Frail elderly, Cirrhosis, Hypertension, Lactic acidosis, Abnormal urinalysis, Acute encephalopathy, CKD (chronic kidney disease) stage 3, GFR 30-59 ml/min, Acute kidney injury superimposed on chronic kidney disease, Chronic liver disease and cirrhosis, Hyperkalemia Disposition: Admitted As Inpatient Condition: Fair Referrals: Travis Deng Jr, MD [Primary Care Provider] - Forms: ED Satisfaction Letter General Adult HPI - General Chief complaint: ED Altered Mental Status Stated complaint: lethargic Source: EMS Limitations: no limitations - History of Present Illness HPI Narrative: 76-year-old female with multiple medical problems reports the emergency department with her son, he reports he put her to bed last night and the patient was doing fine. She was in her usual state of health. She reportedly had a paracentesis yesterday. She has a known history of liver failure and ascites. There is no history of fall or injury. The patient is unable to give a history , the patient's son reports the patient is poorly responsive. She was brought in by EMS. There is no history of convulsion. No history of fever. No reported histories of chest pain shortness of breath or abdominal pain. The patient takes Tylenol 3 for pain. There is no history of sudden rash, no history of choking gasping wheezing or stridor. Generalized confusion and poor responsiveness is noted. The patient does have a history of UTI and hyperammonemia associated confusion. The son reports the patient has a chronic abdominal wall hernia. She is known to be diabetic, on EMS arrival her Accu-Chek was in the 170s per the son. He reports it was in the 160s earlier. Pain Scale: 0 - Related Data Home Medications Medication Instructions Recorded Confirmed Cholecalciferol (Vitamin D3) 50,000 unit PO WESA 11/02/14 05/19/16 [Vitamin D3] Magnesium Oxide [Magnesium] 400 mg PO BID 11/02/14 05/19/16 Ipratropium/Albuterol Neb [Duoneb] 3 ml IH Q4HR PRN 04/26/15 05/19/16 Cyanocobalamin (Vitamin B-12) 1,000 mcg PO DAILY 09/03/15 05/19/16 [Vitamin B12] Zinc Sulfate 220 mg PO BID 09/03/15 05/19/16 Insulin DETEMIR [Levemir Flextouch] 26 unit SQ BID 10/07/15 05/19/16 Insulin LISPRO [Humalog Kwikpen 0 unit SQ ACHS 10/07/15 05/19/16 U-100] Lactulose 15 ml PO TID PRN 10/07/15 05/19/16 Levothyroxine [Synthroid] 100 mcg PO QAM 10/07/15 05/19/16 Acetaminophen with Codeine 1 tab PO Q6H PRN 12/22/15 05/19/16 [Acetaminophen-Cod #4 Tablet] Oxygen 2 l NS AD 12/22/15 05/19/16 Ondansetron ODT [Zofran ODT] 4 mg SL TID PRN 04/02/16 05/19/16 Ranitidine HCl 150 mg PO BID 04/02/16 05/19/16 Diclofenac Sodium 1 appl TP QID PRN 04/09/16 05/19/16 Midodrine HCl 2.5 mg PO TID 05/19/16 05/19/16 Previous Rx's Medication Instructions Recorded Aspirin 81 mg PO DAILY 30 Days 11/08/14 Rifaximin [Xifaxan] 550 mg PO BID #60 tablet 05/01/15 Pantoprazole Sodium [Protonix] 40 mg PO BID #60 tablet. 04/15/16 Sucralfate [Carafate] 1 gm PO QIDAC 30 Days 04/15/16 Allergies Allergy/AdvReac Type Severity Reaction Status Date / Time No Known Allergies Allergy Verified 06/29/15 16:22 Limitations: ROS unobtainable due to patients medical condition Past Medical History - Past Medical History Medical history: Reports: arthritis, cirrhosis, COPD, dementia, diabetes, GERD, glaucoma, hepatitis, hyperlipidemia, hypertension, liver disease, osteoporosis, renal disease, thyroid disease Surgical history: Reports: herniorrhaphy, other Psychiatric history: Reports: no psych history COUNTER SUPERVISOR history: Reports: non-contributory - Social History Smoking Status: Never smoker Smokeless Tobacco Status: No Alcohol use: Reports: none Drug use: Reports: none Physical Exam - General Limitations: altered mental status General appearance: lethargic - Head Head exam: atraumatic, normocephalic, normal inspection - Eye Eye exam: Present: PERRL, miosis. Absent: scleral icterus, conjunctival injection, mydriasis - ENT ENT exam: normal exam, normal oropharynx, mucous membranes moist, TM's normal bilaterally, normal external ear exam - Neck Neck exam: Present: normal inspection, full ROM, trachea midline. Absent: meningismus - Chest Chest inspection: Present: symmetric chest wall rise. Absent: tenderness - Respiratory Respiratory exam: Present: normal lung sounds bilaterally. Absent: respiratory distress - Cardiovascular Cardiovascular exam: Present: regular rate, normal rhythm, normal heart sounds - Abdominal Exam Abdominal exam: Present: soft, Non-Tender, ascites, hernia (Reducible anterior abdominal wall). Absent: tenderness, distention, guarding, rebound, rigidity, pulsatile mass - Extremities Exam Extremities exam: Present: normal inspection, full ROM, normal capillary refill. Absent: tenderness, pedal edema, joint swelling, calf tenderness - Expanded Lower Extremity Exam Upper leg exam: Absent: tenderness Knee exam: Present: normal inspection. Absent: tenderness Lower leg exam: Present: normal inspection. Absent: tenderness, Homans' sign Ankle exam: Absent: normal inspection Foot/toe exam: Present: normal inspection. Absent: tenderness Neurovascular/Tendon exam: Present: normal capillary refill. Absent: motor deficit, sensory deficit, tendon deficit, extremity cold to touch, pallor - Back Exam Back exam: Present: normal inspection, full ROM. Absent: tenderness, CVA tenderness (L), vertebral tenderness - Neurological Exam Neurological exam: Present: CN II-XII intact, other (Good tone in all 4 extremities, the patient is breathing on her own and does arouse somewhat to sternal rub but does not follow commands.). Absent: alert, oriented X3 - Skin Skin exam: Present: warm, dry, intact, normal color. Absent: rash, cyanosis, diaphoresis, erythema, pallor, mottled Course Vital Signs Temperature 97.8 F 05/19/16 12:11 Pulse Rate 76 05/19/16 12:11 Respiratory Rate 20 05/19/16 12:11 Blood Pressure 167/64 05/19/16 12:11 O2 Sat by Pulse Oximetry 100 05/19/16 12:11 Temperature 98.1 F 05/19/16 14:42 Pulse Rate 105 05/19/16 14:42 Respiratory Rate 22 05/19/16 14:42 Blood Pressure 181/99 05/19/16 14:42 O2 Sat by Pulse Oximetry 97 05/19/16 14:42 Oxygen Delivery Oxygen Delivery Nasal Cannula Medical Decision Making - MDM Narrative Medical decision making narrative: The patient is elderly, and notably confused. She was given a dose of Narcan which did help her arouse to a degree however she remained confused. A CT scan head and chest x-ray are negative. The patient's ammonia level is notably elevated. The patient was given IV fluids, an order for lactulose was placed. She has low-grade UTI changes and lactate. I do not necessarily suspect sepsis. The patient has what appears to be SAUL. I have reviewed the case with the hospitalist on-call who has accepted the patient to their care. They have requested Kayexalate and lactulose be given. The patient appears to be stable. She is pending admission. - Lab Data Lab results reviewed: Yes I reviewed the patient's lab results. Result diagrams: 05/19/16 13:21 05/19/16 13:09 Lab Results 05/19/16 05/19/16 05/19/16 Range/Units 12:41 12:41 13:09 WBC (4.3-11.1) K/mcL RBC (3.82-4.97) M/mcL Hgb (11.5-15.4) g/dL Hct (35.3-44.9) % MCV (83.0-100.0) fL MCH (28.0-33.3) pg MCHC (31.6-35.5) g/dL RDW (11.5-14.5) % Plt Count (140-400) K/mcL MPV (9.4-12.4) fL Immature Gran % (0-4) % Seg Neutrophils % % Lymphocytes % % Monocytes % % Eosinophils % % Basophils % % Neutrophils # (1.6-8.9) K/mcL Lymphocytes # (0.6-4.6) K/mcL Monocytes # (0.0-1.3) K/mcL Eosinophils # (0.0-0.6) K/mcL Basophils # (0.0-0.2) K/mcL Immature Plt Fraction (1.1-6.1) % PT (9.4-12.1) Seconds INR APTT (26.0-36.0) Seconds Sodium 139 (136-145) mEq/L Potassium 5.6 H (3.5-4.5) mEq/L Chloride 113 H (98-109) mEq/L Carbon Dioxide 18 L (19-29) mEq/L BUN 54 H (7-20) mg/dL Creatinine 2.41 H (0.57-1.11) mg/dL Est GFR ( Amer) 24 L (> 60) Est GFR (Non-Af Amer) 19 L (> 60) BUN/Creatinine Ratio 22 (6-26) Glucose 140 H (70-99) mg/dL Calculated Osmolality 305 H (280-300) Lactic Acid (0.5-2.2) mmol/L Calcium 8.6 (8.6-10.8) mg/dL Total Bilirubin 1.1 (0.2-1.2) mg/dL Direct Bilirubin 0.5 (0.0-0.5) mg/dL Indirect Bilirubin 0.6 (0.0-1.2) mg/dL AST 33 (5-34) Units/L ALT 16 (0-55) Units/L Alkaline Phosphatase 127 H (38-126) Units/L Ammonia (18-72) mcmol/L Troponin I (0-0.03) ng/mL C-Reactive Protein 6 H (Less than 5) mg/L Serum Total Protein 6.4 (6.0-8.3) g/dL Albumin 3.6 (3.5-5.0) g/dL Globulin 2.8 (2.4-3.5) g/dL Albumin/Globulin Ratio 1.3 (1.1-2.2) Lipase 31 (8-78) Units/L Urine Color Yellow (Yellow) Urine Clarity Clear (Clear) Urine pH 5.5 (5.0-8.0) pH Units Ur Specific [place] 1.016 (1.010-1.025) Urine Protein Negative (Neg-Trace) mg/dL Urine Glucose (UA) Normal (Normal) mg/dL Urine Ketones Negative (Negative) mg/dL Urine Blood Negative (Negative) Urine Nitrite Negative (Negative) Urine Bilirubin Negative (Negative) Urine Urobilinogen Normal (Normal) mg/dL Ur Leukocyte Esterase Small H (Negative) Urine Microscopic RBC 0-3 (0-3) per hpf Urine Microscopic WBC 5-15 H (0-3) per hpf Ur Squamous Epith Cells Many H (None-Few) per lpf Urine Bacteria None Seen (None-Few) per hpf Hyaline Casts None Seen (None-Few) per lpf Ur Culture Indicated? YES A (NO) Urine Opiates Screen Positive H (Zduowq=205) ng/mL Ur Barbiturates Screen Negative (Mbgpbl=436) ng/mL Ur Phencyclidine Scrn Negative (Cutoff=25) ng/mL Ur Amphetamines Screen Negative (Hsiyna=6656) ng/mL U Benzodiazepines Scrn Negative (Bifqjt=675) ng/mL Urine Cocaine Screen Negative (Cutoff= 300) ng/mL U Marijuana (THC) Screen Negative (Cutoff = 50) ng/mL 05/19/16 05/19/16 05/19/16 Range/Units 13:09 13:21 13:21 WBC 3.3 L (4.3-11.1) K/mcL RBC 2.53 L (3.82-4.97) M/mcL Hgb 7.4 L (11.5-15.4) g/dL Hct 23.7 L (35.3-44.9) % MCV 93.7 (83.0-100.0) fL MCH 29.2 (28.0-33.3) pg MCHC 31.2 L (31.6-35.5) g/dL RDW 16.8 H (11.5-14.5) % Plt Count 94 L (140-400) K/mcL MPV 10.9 (9.4-12.4) fL Immature Gran % 0.9 (0-4) % Seg Neutrophils % 63.7 % Lymphocytes % 18.5 % Monocytes % 12.4 % Eosinophils % 3.9 % Basophils % 0.6 % Neutrophils # 2.1 (1.6-8.9) K/mcL Lymphocytes # 0.6 (0.6-4.6) K/mcL Monocytes # 0.4 (0.0-1.3) K/mcL Eosinophils # 0.1 (0.0-0.6) K/mcL Basophils # 0.0 (0.0-0.2) K/mcL Immature Plt Fraction 3.3 (1.1-6.1) % PT 13.2 H (9.4-12.1) Seconds INR 1.2 APTT 29.3 (26.0-36.0) Seconds Sodium (136-145) mEq/L Potassium (3.5-4.5) mEq/L Chloride (98-109) mEq/L Carbon Dioxide (19-29) mEq/L BUN (7-20) mg/dL Creatinine (0.57-1.11) mg/dL Est GFR ( Amer) (> 60) Est GFR (Non-Af Amer) (> 60) BUN/Creatinine Ratio (6-26) Glucose (70-99) mg/dL Calculated Osmolality (280-300) Lactic Acid (0.5-2.2) mmol/L Calcium (8.6-10.8) mg/dL Total Bilirubin (0.2-1.2) mg/dL Direct Bilirubin (0.0-0.5) mg/dL Indirect Bilirubin (0.0-1.2) mg/dL AST (5-34) Units/L ALT (0-55) Units/L Alkaline Phosphatase (38-126) Units/L Ammonia 122 H (18-72) mcmol/L Troponin I (0-0.03) ng/mL C-Reactive Protein (Less than 5) mg/L Serum Total Protein (6.0-8.3) g/dL Albumin (3.5-5.0) g/dL Globulin (2.4-3.5) g/dL Albumin/Globulin Ratio (1.1-2.2) Lipase (8-78) Units/L Urine Color (Yellow) Urine Clarity (Clear) Urine pH (5.0-8.0) pH Units Ur Specific [place] (1.010-1.025) Urine Protein (Neg-Trace) mg/dL Urine Glucose (UA) (Normal) mg/dL Urine Ketones (Negative) mg/dL Urine Blood (Negative) Urine Nitrite (Negative) Urine Bilirubin (Negative) Urine Urobilinogen (Normal) mg/dL Ur Leukocyte Esterase (Negative) Urine Microscopic RBC (0-3) per hpf Urine Microscopic WBC (0-3) per hpf Ur Squamous Epith Cells (None-Few) per lpf Urine Bacteria (None-Few) per hpf Hyaline Casts (None-Few) per lpf Ur Culture Indicated? (NO) Urine Opiates Screen (Oiipts=141) ng/mL Ur Barbiturates Screen (Kmggou=952) ng/mL Ur Phencyclidine Scrn (Cutoff=25) ng/mL Ur Amphetamines Screen (Ktxnwo=7590) ng/mL U Benzodiazepines Scrn (Kecdkp=077) ng/mL Urine Cocaine Screen (Cutoff= 300) ng/mL U Marijuana (THC) Screen (Cutoff = 50) ng/mL 05/19/16 05/19/16 Range/Units 13:21 13:21 WBC (4.3-11.1) K/mcL RBC (3.82-4.97) M/mcL Hgb (11.5-15.4) g/dL Hct (35.3-44.9) % MCV (83.0-100.0) fL MCH (28.0-33.3) pg MCHC (31.6-35.5) g/dL RDW (11.5-14.5) % Plt Count (140-400) K/mcL MPV (9.4-12.4) fL Immature Gran % (0-4) % Seg Neutrophils % % Lymphocytes % % Monocytes % % Eosinophils % % Basophils % % Neutrophils # (1.6-8.9) K/mcL Lymphocytes # (0.6-4.6) K/mcL Monocytes # (0.0-1.3) K/mcL Eosinophils # (0.0-0.6) K/mcL Basophils # (0.0-0.2) K/mcL Immature Plt Fraction (1.1-6.1) % PT (9.4-12.1) Seconds INR APTT (26.0-36.0) Seconds Sodium (136-145) mEq/L Potassium (3.5-4.5) mEq/L Chloride (98-109) mEq/L Carbon Dioxide (19-29) mEq/L BUN (7-20) mg/dL Creatinine (0.57-1.11) mg/dL Est GFR ( Amer) (> 60) Est GFR (Non-Af Amer) (> 60) BUN/Creatinine Ratio (6-26) Glucose (70-99) mg/dL Calculated Osmolality (280-300) Lactic Acid 2.9 H (0.5-2.2) mmol/L Calcium (8.6-10.8) mg/dL Total Bilirubin (0.2-1.2) mg/dL Direct Bilirubin (0.0-0.5) mg/dL Indirect Bilirubin (0.0-1.2) mg/dL AST (5-34) Units/L ALT (0-55) Units/L Alkaline Phosphatase (38-126) Units/L Ammonia (18-72) mcmol/L Troponin I 0.01 (0-0.03) ng/mL C-Reactive Protein (Less than 5) mg/L Serum Total Protein (6.0-8.3) g/dL Albumin (3.5-5.0) g/dL Globulin (2.4-3.5) g/dL Albumin/Globulin Ratio (1.1-2.2) Lipase (8-78) Units/L Urine Color (Yellow) Urine Clarity (Clear) Urine pH (5.0-8.0) pH Units Ur Specific [place] (1.010-1.025) Urine Protein (Neg-Trace) mg/dL Urine Glucose (UA) (Normal) mg/dL Urine Ketones (Negative) mg/dL Urine Blood (Negative) Urine Nitrite (Negative) Urine Bilirubin (Negative) Urine Urobilinogen (Normal) mg/dL Ur Leukocyte Esterase (Negative) Urine Microscopic RBC (0-3) per hpf Urine Microscopic WBC (0-3) per hpf Ur Squamous Epith Cells (None-Few) per lpf Urine Bacteria (None-Few) per hpf Hyaline Casts (None-Few) per lpf Ur Culture Indicated? (NO) Urine Opiates Screen (Rpqcox=728) ng/mL Ur Barbiturates Screen (Evwqvo=592) ng/mL Ur Phencyclidine Scrn (Cutoff=25) ng/mL Ur Amphetamines Screen (Vrvhcs=1154) ng/mL U Benzodiazepines Scrn (Tgjavt=175) ng/mL Urine Cocaine Screen (Cutoff= 300) ng/mL U Marijuana (THC) Screen (Cutoff = 50) ng/mL - Radiology Data Radiology results reviewed: Yes I reviewed the patient's radiology results.
[2016-05-19 12:48] LABS: Bilirubin,Urine Negative (Negative); Blood,Urine Negative (Negative); Clarity,Urine Clear (Clear); Color,Urine Yellow (Yellow); Glucose,Urine (UA) Normal (Normal); Ketones,Urine Negative (Negative); Leukocyte Esterase,Urine Small (Negative); Nitrite,Urine Negative (Negative); PH,Urine 5.5 pH Units (5.0-8.0); Protein,Urine Negative (Neg-Trace); Specific Gravity,Urine 1.016 (1.010-1.025); Urobilinogen,Urine Normal (Normal)
[2016-05-19 12:50] LABS: Bacteria,Urine None Seen per hpf (None-Few); Hyaline Casts,Urine None Seen per lpf (None-Few); RBC,Urine 0-3 per hpf (0-3); Squamous Epithelial Cell,Urine Many per lpf (None-Few)
[2016-05-19 12:55] LABS: Amphetamine Screen,Urine Negative ng/mL (Cutoff=1000); Barbiturate Screen,Urine Negative ng/mL (Cutoff=200); Benzodiazepines Screen,Urine Negative ng/mL (Cutoff=200); Cannabinoid Screen,Urine Negative ng/mL (Cutoff = 50); Cocaine Screen,Urine Negative ng/mL (Cutoff= 300); Opiate Screen,Urine Positive ng/mL (Cutoff=300); Phencyclidine Screen,Urine Negative ng/mL (Cutoff=25)
[2016-05-19] MEDS ORDERED: 0.9 % Sodium Chloride 1,000 ML IVC ONE ×2 (12:57→14:34)
[2016-05-19] MEDS: Naloxone 0.4 MG/ML INJ IVP ONE (13:02)
[2016-05-19 13:32] LABS: Basophils % 0.6 %; Hemoglobin 7.4 g/dL (11.5-15.4); Mean Corpuscular Volume 93.7 fL (83.0-100.0)
[2016-05-19 13:34] LABS: Eosinophils # 0.1 K/mcL (0.0-0.6); Eosinophils % 3.9 %; Hematocrit 23.7 % (35.3-44.9); Immature Granulocytes % 0.9 % (0-4); Immature Platelets 3.3 % (1.1-6.1); Lymphocytes # 0.6 K/mcL (0.6-4.6); Lymphocytes % 18.5 %; Mean Corpuscular HGB Conc 31.2 g/dL (31.6-35.5); Mean Corpuscular Hemoglobin 29.2 pg (28.0-33.3); Mean Platelet Volume 10.9 fL (9.4-12.4); Monocytes # 0.4 K/mcL (0.0-1.3); Monocytes % 12.4 %; Neutrophils # 2.1 K/mcL (1.6-8.9); Red Blood Count 2.53 M/mcL (3.82-4.97); Red Cell Distribution Width 16.8 % (11.5-14.5); Segmented Neutrophils % 63.7 %
[2016-05-19 13:50] LABS: INR 1.2; Prothrombin Time 13.2 Seconds (9.4-12.1)
[2016-05-19 13:52] LABS: Activated Partial Thrombo Time 29.3 Seconds (26.0-36.0)
[2016-05-19 13:54] LABS: Albumin 3.6 g/dL (3.5-5.0); Albumin/Globulin Ratio 1.3 (1.1-2.2); Bilirubin,Direct 0.5 mg/dL (0.0-0.5); Bilirubin,Indirect 0.6 mg/dL (0.0-1.2); Bilirubin,Total 1.1 mg/dL (0.2-1.2); Calcium 8.6 mg/dL (8.6-10.8); Globulin 2.8 g/dL (2.4-3.5); Potassium 5.6 mEq/L (3.5-4.5); Total Protein 6.4 g/dL (6.0-8.3)
[2016-05-19 13:57] LABS: Platelet Count 94 K/mcL (140-400)
[2016-05-19] MEDS ORDERED: Lactulose Oral Soln 20 GM/30 ML UDC PO ONE (14:34)
[2016-05-19] MEDS ORDERED: Naloxone 0.4 MG/ML INJ IVP PRN (17:51)
[2016-05-19] MEDS ORDERED: Ondansetron 4 MG/2 ML VIAL IVP PRN (17:51)
--- NOTE | 2016-05-19 17:51 | Internal Med History&Physical ---
<Ying Chawla - Last Filed: 05/19/16 18:46> Date of Encounter: 05/19/16 Time of Encounter: 17:51 Assessment and Plan (1) Acute hepatic encephalopathy Current visit: Yes Status: Acute 1 patient presented to the ER lethargic with ammonia level of 122. Has history of cirrhosis of the liver and ascites. She is on lactulose at home however has not been having adequate stool. We will continue with lactulose 20 g rectally 3 times a day to achieve 3-4 soft stools daily. 2 patient is on opiates at home will hold sedating medications 3 aspiration precautions 4 keep patient nothing by mouth -hold oral medications for now (2) Cirrhosis Current visit: No Status: Chronic 1 patient has a history of alcoholic cirrhosis. We will continue with lactulose rectally. Once patient is more alert we will resume oral lactulose as well as Rifaximin . We will monitor patient's stools she is to have 3-4 soft stools daily 2 patient receives paracentesis weekly she had paracentesis yesterday. We will continue with paracentesis as needed 3 we will avoid hepatotoxins 4 patient is unable to take Lasix at this time due to SAUL we will resume once creatinine at baseline Qualifiers: Hepatic cirrhosis type: alcoholic cirrhosis Ascites presence: with ascites Qualified Code(s): K70.31 - Alcoholic cirrhosis of liver with ascites (3) Insulin dependent diabetes mellitus Current visit: No Status: Chronic 1 patient is presently nothing by mouth due to altered mental status. We will place on Accu-Cheks every 6 hours with a sliding scale as needed. We will resume basal insulin once patient is eating (4) Pancytopenia Current visit: No Status: Chronic 1 patient has history of pancytopenia appears to be chronic related to cirrhosis. Hemoglobin is down 7.4 from 8.9. We will obtain occult stool for now. No signs or symptoms of active bleeding at this time. We will continue to monitor platelets and transfuse as needed (5) Lactic acidosis Current visit: Yes Status: Acute 1 lactate 2.9 with bicarbonate of 18 with likely related to SAUL/ hepatic failure. We will give gentle IV hydration. Recheck lactate we will also correct hyperkalemia with Kayexalate and recheck potassium. Continue with lactulose. Recheck chemistry. (6) Hyperkalemia Current visit: Yes Status: Acute 1. Potassium was 5 on presentation patient given Keflex labor actively we will continue to monitor 2 continuous cardiac monitoring (7) CKD (chronic kidney disease) stage 4, GFR 15-29 ml/min Current visit: Yes Status: Acute 1 patient has history of CK D creatinine is 2.4 which is slightly elevated from previous creatinine 1.71 last month. He will continue to monitor creatinine 2. IV fluid bolus 1 and recheck in a.m. 3 avoid nephrotoxins 4 intake and output daily weight (8) DVT prophylaxis Current visit: No Status: Acute 1 SCDs Internal Medicine - H&P: HPI Chief complaint: lethargy Admitted From: Emergency Dept Plans for Post Hospital Care: Home History of present illness: Ms. Flores is a 76 year old female past medical history of alcoholic cirrhosis esophageal varices COPD dementia diabetes hyperlipidemia hypertension CKD stage III pancytopenia. Information obtained from medical records as well as son who is at bedside due to patient's decreased mental state. Patient has history of chronic ascites she receives paracentesis weekly last paracentesis was yesterday. According to her son patient was in her normal state of health prior to going to bed last night at approximately 10:30 PM. He states that she has been taking her medications as prescribed however she has not had any large stools. Normally she has 2 large stools a day related to her ocular she use recently she has only had a few hard stools. Patient was poorly responsive this a.m. the patient was brought in by EMS. Blood sugar was 170s. Patient has a history of hyperammonemia associated confusion. She was brought to the ER for evaluation. Cranial records upon presentation patient was lethargic and arouses to sternal rub but does not follow commands. Vital signs were within normal limits Accu-Chek was greater than 100. Patient was given a dose of Narcan which did arouse her to some degree CT scan of head and chest were negative patient's ammonia level was elevated she was given IV fluids and lactulose. Patient's lactate was elevated at 2.9 as well as a KI. Patient was admitted for further workup and evaluation. Presently patient continues to be lethargic she opens eyes to sternal rub moans at times she does not follow commands. Son is at bedside I did discuss CODE STATUS which he requests patient be DNR CCA. Presently the patient is hemodynamically stable and is protecting her airway. I reviewed this case with Dr. Ramirez who agrees with plan Past Med Surg Social Fam HX - Past Medical History Medical history: arthritis, cirrhosis, COPD, dementia, diabetes, GERD, glaucoma , hepatitis, hyperlipidemia, hypertension, liver disease, osteoporosis, renal disease, thyroid disease Psychiatric history: no psych history - Past Surgical History Surgical History: herniorrhaphy, other - Social History Smoking Status: Never smoker Smokeless Tobacco Status: No Alcohol use: none Drug use: none - Family History Sister Adopted: No Living Status: Hx Family Cardiac Disorders: Yes Hx Family Respiratory Disorders: Yes Hx Family Cancer: Yes Hx Family GI Disorders: Yes (cirrhosis) Hx Family Endocrine Disorder: No Hx Family Neuromuscular Disorders: No Hx Family Neurologic Disorders: No Hx Family HEENT Disorders: No Hx Family Autoimmune Disorders: No Mother Adopted: No Family Member Ethnicity: Non- Living Status: Hx Family Cardiac Disorders: Yes Father Hx Family Cardiac Disorders: Yes (MYOCARDIAL INFARCTION.) Son Adopted: No Family Member Ethnicity: Non- Living Status: Still Living Hx Family Cardiac Disorders: No Hx Family Respiratory Disorders: No Hx Family Cancer: No Hx Family GI Disorders: No Hx Family Endocrine Disorder: No Hx Family Neuromuscular Disorders: Yes Hx Family Neurologic Disorders: No Hx Family HEENT Disorders: No Hx Family Autoimmune Disorders: No Internal Medicine - H&P: Meds Cholecalciferol (Vitamin D3) [Vitamin D3] 50,000 unit PO WESA 11/02/14 [History] Magnesium Oxide [Magnesium] 400 mg PO BID 11/02/14 [History] Aspirin 81 mg PO DAILY 30 Days 11/08/14 [Rx] Ipratropium/Albuterol Neb [Duoneb] 3 ml IH Q4HR PRN 04/26/15 [History] Rifaximin [Xifaxan] 550 mg PO BID #60 tablet 05/01/15 [Rx] Cyanocobalamin (Vitamin B-12) [Vitamin B12] 1,000 mcg PO DAILY 09/03/15 [History ] Zinc Sulfate 220 mg PO BID 09/03/15 [History] Insulin DETEMIR [Levemir Flextouch] 26 unit SQ BID 10/07/15 [History] Insulin LISPRO [Humalog Kwikpen U-100] 0 unit SQ ACHS 10/07/15 [History] Lactulose 15 ml PO TID PRN 10/07/15 [History] Levothyroxine [Synthroid] 100 mcg PO QAM 10/07/15 [History] Acetaminophen with Codeine [Acetaminophen-Cod #4 Tablet] 1 tab PO Q6H PRN [History] Oxygen 2 l NS AD 12/22/15 [History] Ondansetron ODT [Zofran ODT] 4 mg SL TID PRN 04/02/16 [History] Ranitidine HCl 150 mg PO BID 04/02/16 [History] Diclofenac Sodium 1 appl TP QID PRN 04/09/16 [History] Pantoprazole Sodium [Protonix] 40 mg PO BID #60 tablet. 04/15/16 [Rx] Sucralfate [Carafate] 1 gm PO QIDAC 30 Days 04/15/16 [Rx] Midodrine HCl 2.5 mg PO TID 05/19/16 [History] Allergies No Known Allergies Allergy (Verified 06/29/15 16:22) ROS unobtainable: due to mental status All Systems PM: A 10-system review of systems was performed and is negative for pertinent findings except as documented above in the HPI. - Constitutional Vitals: Temp Pulse Resp BP Pulse Ox 98.2 F 103 22 174/88 97 05/19/16 16:28 05/19/16 15:54 05/19/16 16:28 05/19/16 16:28 05/19/16 15:54 General appearance: Present: A&O X 0 Exam: Lethargic but arouses to sternal rub - Head Head exam: Present: atraumatic, normocephalic - Respiratory Respiratory exam: Present: CTAB. Absent: accessory muscle use, rales, rhonchi, wheezes - Cardiovascular Cardiovascular exam: Present: RRR, +S1, +S2. Absent: diastolic murmur, gallop, rubs, systolic murmur - GI/Abdominal GI/Abdominal exam: Present: hernia, normal bowel sounds, soft, no peritoneal signs. Absent: distended, tenderness - Extremities Exam Extremities exam: Present: warm, radial pulses palpable and symetrical. Absent : calf tenderness, cyanotic, pedal edema - Neurological Exam Neurological exam: Absent: pronater drift, facial droop, speech deficit Additional comments: Lethargic - Skin Skin exam: Present: dry, intact Internal Med - H&P Results - Labs CBC & Chem 7: 05/19/16 13:21 05/19/16 13:09 - EKG Data EKG shows normal: sinus rhythm - EKG Data Prior EKG available for review: yes When compared to previous EKG: there is no significant change - Diagnostic Studies Other Images Additional comments: Chest X-Ray 05/19/16 12:30 IMPRESSION: No acute process demonstrated. Chronic elevation of the right hemidiaphragm D/ / Obdulio Wheeler MD / Obdulio Wheeler MD Interpreting Provider: Obdulio Wheeler MD Head CT 05/19/16 12:52 IMPRESSION: Limited evaluation due to motion artifact. However no abnormality is seen. D/ / Kam Guevara MD / Kam Guevara MD Interpreting Provider: Kam Guevara MD <Lobo Ramirez T - Last Filed: 05/19/16 18:54> Date of Encounter: 05/19/16 Internal Medicine - H&P: HPI History of present illness: Ms. Flores is a 76 year old female All Systems PM: A 10-system review of systems was performed and is negative for pertinent findings except as documented above in the HPI. - Constitutional Vitals: Temp Pulse Resp BP Pulse Ox 97.8 F 101 18 161/81 100 05/19/16 17:54 05/19/16 17:54 05/19/16 17:54 05/19/16 17:54 05/19/16 17:54 Internal Med - H&P Results - Labs CBC & Chem 7: 05/19/16 13:21 05/19/16 13:09 - Attending Attestation I have independently interviewed and examined this patient. I agree with the resident/practitioner with exemptions as stated below. The plan of care has been discussed with the patient, resident and rest of the team 76 Y/O F with advanced decompensated liver cirrhosis with ascites s/p paracentensis 05/18/16, Esophageal varices s/p gastric banding with recent negative EGD for bleeds, Portal HTN, Chronic pain syndrome, CKD, Pnacytopenia She is seen at bedside with family at bedside, hx obtained from her son as patient is altered. He reports she was in her usual state of health till after MN when she became unarousable, he denies patient has constipation, but reports her BM were hard yesterday. He denies any other complains, denies hematemesis or melena. Physical exam: Altered, rousable to noxious stimuli but falls right back asleep , dry oral mucosa, protecting her airway, vitals are stable, chest is clear. Abdomen with ventral hernia, soft, not tender, no pedal edema. Patient moved all limbs spontaneously. Labs and Imaging reviewed: Pancytopenia with slight drop in Hb ~7.3 from baseline of about 8, PLT/WBC at baseline, SAUL on CKD, coag panel unremarkable, UA with positive LE+, dirty, Ammonia 122 A/P: hepatic encephalopathy, possibly superimposed opiate overdose, suspected UTI. SAUL on CKD, Lactic acidosis due to liver disease, pancytopenia due to Liver disease, mild anemia on top of chronic anemia. Plan is lactulose and kayexalate rectally to achieve at least 3 BM daily, repeat UA, gentle boluses , monitor respiration and oxygenation and chemistry, hold Lasix/Spironolactone, DNR/DNI Palliative consult.rest of details as in [employer] [place] documentation..
[2016-05-19] MEDS ORDERED: Ipratropium/Albuterol Neb 3 ML IH PRN (17:56)
[2016-05-19] MEDS ORDERED: *HR* Dextrose 50 % in Water (Syg) 50 ML SYRINGE IVP PRN (18:06)
[2016-05-19] MEDS ORDERED: D5% in Water 1,000 ML IVC PRN (18:06)
[2016-05-19] MEDS ORDERED: Dextrose Gel 15 GM PO PRN ×2 (18:06)
[2016-05-19] MEDS ORDERED: 0.9 % Sodium Chloride 500 ML IVC ONE (18:07)
[2016-05-19] MEDS ORDERED: Lactulose Oral Soln 20 GM/30 ML UDC RC SCH (21:00)
[2016-05-19] MEDS ORDERED: Lactulose Oral Soln 20 GM/30 ML UDC PO SCH (21:00)
[2016-05-19] MEDS ORDERED: Lactulose 200 GM, Sodium Chloride IRRigation 700 ML RC ONE (21:30)
[2016-05-19 22:12] LABS: Calcium 7.9 mg/dL (8.6-10.8); Potassium 5.2 mEq/L (3.5-4.5)
[2016-05-20] MEDS ORDERED: 0.9 % Sodium Chloride 500 ML ONE (00:30)
[2016-05-20] MEDS: Insulin LISPRO 300 UNITS/3 ML VIAL SQ SCH ×6 (01:10→21:21)
[2016-05-20 04:47] LABS: Hematocrit 23.9 % (35.3-44.9)
[2016-05-20 04:49] LABS: Basophils % 0.6 %; Eosinophils # 0.1 K/mcL (0.0-0.6); Eosinophils % 3.2 %; Hemoglobin 7.4 g/dL (11.5-15.4); Immature Granulocytes % 0.6 % (0-4); Immature Platelets 3.6 % (1.1-6.1); Lymphocytes # 0.6 K/mcL (0.6-4.6); Lymphocytes % 18.9 %; Mean Corpuscular Volume 93.7 fL (83.0-100.0); Mean Platelet Volume 10.7 fL (9.4-12.4); Monocytes # 0.4 K/mcL (0.0-1.3); Monocytes % 13.9 %; Red Blood Count 2.55 M/mcL (3.82-4.97); Red Cell Distribution Width 17.2 % (11.5-14.5); Segmented Neutrophils % 62.8 %
[2016-05-20 04:52] LABS: Platelet Count 72 K/mcL (140-400)
[2016-05-20 05:08] LABS: Calcium 8.3 mg/dL (8.6-10.8); Potassium 4.8 mEq/L (3.5-4.5)
[2016-05-20] MEDS ORDERED: 0.9 % Sodium Chloride 250 ML ONE (05:56)
[2016-05-20] MEDS: Pantoprazole 40 MG VIAL IVP SCH (08:22)
--- NOTE | 2016-05-20 09:15 | Internal Med Progress Note ---
Date of Encounter: 05/20/16 Time of Encounter: 09:11 - Assessment and plan (1) Altered mental status Current Visit: No Status: Resolved Assessment and plan: Altered mental status resolved. Patient is alert and oriented 3. Patient denies any abdominal pain, vomiting, nausea, bleeding per rectum or melena. Altered mental status is likely secondary to hepatic encephalopathy which is regarding after she had couple of bowel movements. Qualifiers: Altered mental status type: unspecified Qualified Code(s): R41.82 - Altered mental status, unspecified (2) Chronic liver disease and cirrhosis Current Visit: Yes Status: Chronic Assessment and plan: Patient is known to have a chronic liver disease and cirrhosis. Patient was seen by lift builder whole this Wednesday. Patient went for abdominal paracentesis by IR Patient does and once liver cirrhosis: Child's Kim C, MELD score 22. Case discussed with the lift builder whole, . He recommends conservative management for possible GI bleed. Reason for consult medical management is patient is very high risk for any kind of intervention. Plan: Transfuse 2 units of PRBC if hemoglobin less than 8. IV PPI every 12 hours. Fall-up percussion. We will do abdominal paracentesis if it gets worse in next 1-2 days. Plan discussed with the patient and her family members. The understood and verbalized understanding. (3) Insulin dependent diabetes mellitus Current Visit: No Status: Chronic Assessment and plan: ACHS SCSI home dose resume. (4) Thrombocytopenia Current Visit: No Status: Chronic Assessment and plan: secondary to cirrhosis (5) DVT prophylaxis Current Visit: No Status: Acute Assessment and plan: Elevated INR secondary to Cirrhosis: autoanticoagulated. Medical risk management: Patient has a moderate to severe risk of worsening in spite of being on appropriate medical therapy. Palliative consult was placed and we will wait for their recommendation. - Subjective Interval history: seen and examined. chart reviewed. Patient is alert and oriented 3. Patient denies any melena/vomiting/diarrhea/abdominal pain - Constitutional Vitals: Temp Pulse Resp BP Pulse Ox 98.8 F 76 16 143/62 99 05/20/16 07:00 05/20/16 07:00 05/20/16 07:00 05/20/16 07:00 05/20/16 07:00 General appearance: Present: A&O X 3, answers questions appropriately - Head Head exam: Present: atraumatic, normocephalic - Eye Eye exam: Present: PERRL, conjuntiva pink, sclera anicteric Pupils: Present: PERRL - Neck Neck exam general surgery: Present: supple, trachea midline. Absent: lymphadenopathy - Respiratory Respiratory exam: Present: CTAB. Absent: accessory muscle use, rales, rhonchi, wheezes - Cardiovascular Cardiovascular exam: Present: RRR, +S1, +S2. Absent: diastolic murmur, gallop, rubs, systolic murmur - GI/Abdominal GI/Abdominal exam: Present: normal bowel sounds, soft, no peritoneal signs. Absent: distended, tenderness - Extremities Exam Extremities exam: Present: warm, radial pulses palpable and symetrical. Absent : calf tenderness, cyanotic, pedal edema - Neurological Exam Neurological exam: Present: CN II-XII intact, oriented X3, no focal deficits. Absent: pronater drift, facial droop, speech deficit - Skin Skin exam: Present: dry, intact Internal Medicine: Result - Labs CBC & Chem 7: 05/20/16 04:30 05/20/16 04:30 Labs: Short CBC 05/20/16 Range/Units 04:30 WBC 3.2 L (4.3-11.1) K/mcL Hgb 7.4 L (11.5-15.4) g/dL Hct 23.9 L (35.3-44.9) % Plt Count 72 L (140-400) K/mcL Neutrophils # 2.0 (1.6-8.9) K/mcL BMP 05/19/16 05/20/16 21:27 04:30 Sodium 140 142 Potassium 5.2 H 4.8 H Chloride 116 H 118 H Carbon Dioxide 17 L 15 L BUN 52 H 49 H Creatinine 2.22 H 2.06 H Glucose 152 H 110 H Calcium 7.9 L 8.3 L - ABG Interpretation ABG results: PT/INR, D-dimer PT 13.2 Seconds (9.4-12.1) H 05/19/16 13:21 Consult Discharge Plan - Plan Referrals: Travis Deng Jr, MD [Primary Care Provider] -
--- NOTE | 2016-05-20 11:42 | Gastroenterology Consult Note ---
<DupreeJohnnie Sheridan - Last Filed: 05/20/16 11:39> Date of Encounter: 05/20/16 Time of Encounter: 10:10 - Assessment and plan (1) Cirrhosis Current Visit: No Status: Chronic Assessment and plan: On admission MELD Na 16, Child-Kim class B, DF 13.5. Start Rifaximin 400 mg TID and Zinc supplement. Start Lactulose and titrate to 2-4 BM daily. Weekly paracentesis. AFP 1 on 03/02/2016. RUQ US 03/04/2016 showed cirrhosis with no lesion. Qualifiers: Hepatic cirrhosis type: alcoholic cirrhosis Ascites presence: with ascites Qualified Code(s): K70.31 - Alcoholic cirrhosis of liver with ascites (2) Chronic respiratory failure Current Visit: No Status: Chronic Assessment and plan: Management per primary team. Qualifiers: Respiratory failure complication: hypoxia Qualified Code(s): J96.11 - Chronic respiratory failure with hypoxia (3) Esophageal varices in cirrhosis Current Visit: No Status: Chronic Assessment and plan: Last EGD was 04/14/2016 with nonbleeding esophageal ulcer, portal hypertensive gastropathy (4) Ascites Current Visit: No Status: Chronic Assessment and plan: Pt completes paracentesis weekly. Paracentesis completed 4/3 with 5.2 L removed. Unable to use Lasix d/t CKD. Qualifiers: Ascites type: other type Qualified Code(s): R18.8 - Other ascites (5) Hepatic encephalopathy Current Visit: No Status: Chronic Assessment and plan: Secondary to cirrhosis.Start Rifaximin 400 mg TID while inpatient and 550 mg BID while outpatient. Start Lactulose and titrate to 2-4 BM daily. (6) Thrombocytopenia Current Visit: No Status: Chronic Assessment and plan: secondary to cirrhosis. (7) Fecal occult blood test positive Current Visit: Yes Status: Acute Assessment and plan: pt with flex sig on 04/14/16 with internal hemorrhoids. No plan for repeat EGD or colonoscopy at this time. Continue to monitor CBC. - Time Spent With Patient Total time spent is greater than 50% in coordination of care (as documented) at patient's floor/unit and/or counseling patient: GI History of Present Illness - Data of Consult Patient: known to practice within the last 3 years Consult date: 05/20/16 Requesting Physician: Rafael Jenkins MD - Consult Narrative Reason for consult: FOBT positive, decreased Hgb History of present illness: Ms. Flores is a 76 year old female with PMHx of cirrhosis, recurrent hepatic encephalopathy, pancytopenia, CAD stage III, T2DM, CKD, HTN, COPD. She receives paracentesis which are scheduled every week. She has a history of grade 2 esophageal varices which were previously banded. nformation obtained from medical records. Paracentesis was completed 05/18 with 5.2L removed. Pt was poorly responsive yesterday morning (05/19), and was brought to the ED for evaluation. She was lethargic and not following commands, but did respond to sternal rub. CT head negative, ammonia was elevated, and she was started on IV fluids. Patient unable to swallow due to decreased level of consciousness, unable to take lactulose rectally as she was unable to retain fluid, and unable to insert NG tube due to history of esophageal varices. Procedures: Flexible sigmoidoscopy 04/14/2016 with internal hemorrhoids. EGD 04/14/2016 with nonbleeding esophageal ulcer, portal hypertensive gastropathy Colonoscopy 09/01/2013: With tubulovillous adenoma, poor prep. EGD 10/10/2015 with grade 2 esophageal varices, completely eradicated, banded. Portal hypertensive gastropathy. EGD 04/30/2015 with grade 2 varices, banded, portal hypertensive gastropathy NSAID: ASA Anticoagulation: None Past Med Surg Social Fam HX - Past Medical History Medical history: arthritis, cirrhosis, COPD, dementia, diabetes, GERD, glaucoma , hepatitis, hyperlipidemia, hypertension, liver disease, osteoporosis, renal disease, thyroid disease Psychiatric history: no psych history - Past Surgical History Surgical History: herniorrhaphy - Social History Smoking Status: Never smoker Smokeless Tobacco Status: No Alcohol use: none Drug use: none - Family History Sister Adopted: No Living Status: Hx Family Cardiac Disorders: Yes Hx Family Respiratory Disorders: Yes Hx Family Cancer: Yes Hx Family GI Disorders: Yes (cirrhosis) Hx Family Endocrine Disorder: No Hx Family Neuromuscular Disorders: No Hx Family Neurologic Disorders: No Hx Family HEENT Disorders: No Hx Family Autoimmune Disorders: No Mother Adopted: No Family Member Ethnicity: Non- Living Status: Hx Family Cardiac Disorders: Yes Father Hx Family Cardiac Disorders: Yes (MYOCARDIAL INFARCTION.) Son Adopted: [place]: [place] flores Age: 56 Family Member Ethnicity: Non- Living Status: Still Living Hx Family Cardiac Disorders: Yes (HTN) Hx Family Respiratory Disorders: No Hx Family Cancer: No Hx Family GI Disorders: No Hx Family Endocrine Disorder: No Hx Family Musculoskeletal Disorders: Yes (Arthritis) Hx Family Neuromuscular Disorders: No Hx Family Neurologic Disorders: No Hx Family HEENT Disorders: No Hx Family Autoimmune Disorders: No Hx Family Reproductive Disorders: No Hx Family Psychosocial Disorders: No - Gastrointestinal Gastrointestinal: Present: as per HPI - Constitutional Constitutional: as per HPI - EENT Eyes: as per HPI Ears: Present: as per HPI Nose, mouth and throat: Present: as per HPI - Cardiovascular Cardiovascular ROS: Present: as per HPI - Respiratory Respiratory IM: Present: as per HPI - Genitourinary Genitourinary: Absent: change in color, Urinary frequency - Neurological ROS Neurological GI: Present: as per HPI - Hematologic/Lymphatic Hematologic/Lymphatic pediatric: Present: as per HPI - Musculoskeletal Musculoskeletal ROS GI: Present: as per HPI - Integumentary Integumentary GI: Present: as per HPI - Psychiatric ROS Psychiatric GI: Present: as per HPI - Endocrine Endocrine IM: Present: as per HPI - Constitutional Vitals: Temp Pulse Resp BP Pulse Ox 98.8 F 76 16 143/62 99 05/20/16 07:00 05/20/16 07:00 05/20/16 07:00 05/20/16 07:00 05/20/16 07:00 General appearance: Present: cooperative, A&O X 3, no acute distress, answers questions appropriately - Head Head exam: Present: atraumatic, normocephalic - Eye Eye exam: Present: normal appearance, sclera anicteric - ENT ENT exam: Present: mucous membranes dry - Neck Neck exam general surgery: Present: normal inspection, trachea midline - Respiratory Respiratory exam: Present: decreased breath sounds, CTAB - Cardiovascular Cardiovascular exam: Present: RRR, +S1, +S2 - GI/Abdominal GI/Abdominal exam: Present: distended, soft, no peritoneal signs. Absent: firm , guarding, tenderness - Expanded GI/Abdominal Exam GI/Abdominal exam expanded: Present: ascites - Rectal Rectal exam: Present: deferred - Extremities Exam Extremities exam: Present: warm - Neurological Exam Neurological exam: Present: no focal deficits - Psychiatric Psychiatric exam: Present: normal affect, normal mood - Skin Skin exam: Present: dry, intact, normal color, warm Results - Labs CBC & Chem 7: 05/20/16 04:30 05/20/16 04:30 Labs: Last Result Calcium 8.3 mg/dL (8.6-10.8) L 05/20/16 04:30 Troponin I 0.01 ng/mL (0-0.03) 05/19/16 13:21 C-Reactive Protein 6 mg/L (Less than 5) H 05/19/16 13:09 Stool Occult Blood Positive (Negative) A 05/19/16 17:15 Urine Opiates Screen Positive ng/mL ([place]=067) H 05/19/16 12:41 Entire Visit Hgb 7.4 g/dL (11.5-15.4) L 05/20/16 04:30 Hct 23.9 % (35.3-44.9) L 05/20/16 04:30 PT 13.2 Seconds (9.4-12.1) H 05/19/16 13:21 Total Bilirubin 1.1 mg/dL (0.2-1.2) 05/19/16 13:09 AST 33 Units/L (5-34) 05/19/16 13:09 ALT 16 Units/L (0-55) 05/19/16 13:09 Ammonia 122 mcmol/L (18-72) H 05/19/16 13:09 Lipase 31 Units/L (8-78) 05/19/16 13:09 - ABG ABG results: PT/INR, D-dimer PT 13.2 Seconds (9.4-12.1) H 05/19/16 13:21 Consult Discharge Plan - Plan Referrals: Travis Deng Jr, MD [Primary Care Provider] - <StephaniElvira - Last Filed: 05/20/16 18:43> Date of Encounter: 05/20/16 - Time Spent With Patient Total time spent is greater than 50% in coordination of care (as documented) at patient's floor/unit and/or counseling patient: GI History of Present Illness - Data of Consult Requesting Physician: Rafael Jenkins MD - Consult Narrative History of present illness: Ms. Flores is a 76 year old female - Constitutional Vitals: Temp Pulse Resp BP Pulse Ox 98.5 F 83 16 147/97 100 05/20/16 16:10 05/20/16 16:10 05/20/16 16:10 05/20/16 16:10 05/20/16 16:10 Results - Labs CBC & Chem 7: 05/20/16 04:30 05/20/16 04:30 Labs: Last Result Calcium 8.3 mg/dL (8.6-10.8) L 05/20/16 04:30 Troponin I 0.01 ng/mL (0-0.03) 05/19/16 13:21 C-Reactive Protein 6 mg/L (Less than 5) H 05/19/16 13:09 Stool Occult Blood Positive (Negative) A 05/19/16 17:15 Urine Opiates Screen Positive ng/mL (Tjkprq=511) H 05/19/16 12:41 Entire Visit Hgb 7.4 g/dL (11.5-15.4) L 05/20/16 04:30 Hct 23.9 % (35.3-44.9) L 05/20/16 04:30 PT 13.2 Seconds (9.4-12.1) H 05/19/16 13:21 Total Bilirubin 1.1 mg/dL (0.2-1.2) 05/19/16 13:09 AST 33 Units/L (5-34) 05/19/16 13:09 ALT 16 Units/L (0-55) 05/19/16 13:09 Ammonia 122 mcmol/L (18-72) H 05/19/16 13:09 Lipase 31 Units/L (8-78) 05/19/16 13:09 - ABG ABG results: PT/INR, D-dimer PT 13.2 Seconds (9.4-12.1) H 05/19/16 13:21 - Attending Attestation I examined this patient and my medical decision-making was reviewed with the RECEPTIONIST/TELEPHONE OPERATOR/PA/Advanced Practice Nurse/Resident Physician. I agree with the documented findings, disposition and treatment plan as described except to the extent set forth below. Pt end-stage liver disease with refractory ascites on weekly asctic tap. Anemia but no overt bleeding. Recommend blood transfusion no need for endoscopy as patient is very high risk because of her end-stage liver disease
--- NOTE | 2016-05-20 13:03 | Palliative - Consult Note ---
Date of Encounter: 05/20/16 Time of Encounter: 13:00 - Assessment and Plan (1) Acute encephalopathy Current Visit: Yes Status: Acute Assessment and plan: Has improved since admission with administration of Lactulose rectally . She is now able to take po. Monitor. Son states greatly improved from admission,, but not quite back to baseline. (2) Counseling regarding advanced care planning and goals of care Current Visit: Yes Status: Acute Assessment and plan: Patient still is slightly confused and unable to participate with goals of care discussion. Edwin Euceda at bedside is POA. Discussed her cirrhosis and goals of care. Her code status is DNRCC-Arrest and he confirms that she is to remain at this level. He states is would want short term intubation if she came in with respiratory distress or if her mental status was altered to the point she required airway protection. Son states that he has not been provided a DNR state form , and I completed and provided him copies, as well as placed on medical record here. Son is very knowledgeable re: her cirrhosis and treatment. She currently has [facility] and [facility] care which he desires to continue. Ok states that she has been able to mostly care for herself, except when her mental status is altered. He states "occasionally the lactulose doesn't work", and she requires hospitalization, and at this point, he wants that level of care to continue. She does have refractory ascites, and has been getting paracentesis performed here weekly, however, Albumin 3.6, INR 1.2, Bili WNL. Her perfomance status prior to AMS and admission approximately 50-60% depending on how she felt for the day. MELD score 16 based on current lab values. She does not quite meet hospice criteria,, but I did discuss briefly with son. He stated that he has been "disappointed", that her care providers have been mentioning hospice to him for the last 3 years and states "that's all they want to talk about". We did discuss that cirrhosis is usually a terminal diagnosis, unless pt is transplant candidate, and he does acknowledge understanding. At this point, he is pleased with her home care, and desires to take her home upon discharge. Palliative-CN HPI - Data of Consult Requesting Physician: Rafael Jenkins MD Primary Care Provider: Travis Deng Jr, MD - Consult Narrative History of present illness: Ms. Flores is a 76 year old female with a history of alcoholic cirrhosis, who was admitted with altered mental status. Other pertinent medical history includes COPD, Diabetes, HTN, CKD as well as other comorbitities . Patient became confused at home and son, ARSLAN Euceda and care provider had difficulty administering lactulose. Ammonia level 122 on admission. She was admitted and treated with lactulose enemas, and son states mental status has greatly improved , although not back to baseline. She has anemia with hemoglobin doesn to 7.4 on admission and GI has seen, however, at this point, no plans for endoscopy r/ t high risk and esophageal varices. Upon my visit, she is alert and oriented to name and place, and attempting to feed herself lunch. Denies any pain, other than JAIMIE hose causing her discomfort. On room air, and denies shortness of breath. States she is hungry and enjoying lunch. CC: Rafael Jenkins MD Past Med Surg Social Fam HX - Past Medical History Medical history: arthritis, cirrhosis, COPD, dementia, diabetes, GERD, glaucoma , hepatitis, hyperlipidemia, hypertension, liver disease, osteoporosis, renal disease, thyroid disease Psychiatric history: no psych history - Past Surgical History Surgical History: herniorrhaphy - Social History Smoking Status: Never smoker Smokeless Tobacco Status: No Alcohol use: none Drug use: none - Family History Sister Adopted: No Living Status: Hx Family Cardiac Disorders: Yes Hx Family Respiratory Disorders: Yes Hx Family Cancer: Yes Hx Family GI Disorders: Yes (cirrhosis) Hx Family Endocrine Disorder: No Hx Family Neuromuscular Disorders: No Hx Family Neurologic Disorders: No Hx Family HEENT Disorders: No Hx Family Autoimmune Disorders: No Mother Adopted: No Family Member Ethnicity: Non- Living Status: Hx Family Cardiac Disorders: Yes Father Hx Family Cardiac Disorders: Yes (MYOCARDIAL INFARCTION.) Son Adopted: [place]: [place] flores Age: 56 Family Member Ethnicity: Non- Living Status: Still Living Hx Family Cardiac Disorders: Yes (HTN) Hx Family Respiratory Disorders: No Hx Family Cancer: No Hx Family GI Disorders: No Hx Family Endocrine Disorder: No Hx Family Musculoskeletal Disorders: Yes (Arthritis) Hx Family Neuromuscular Disorders: No Hx Family Neurologic Disorders: No Hx Family HEENT Disorders: No Hx Family Autoimmune Disorders: No Hx Family Reproductive Disorders: No Hx Family Psychosocial Disorders: No Medications and Allergies Cholecalciferol (Vitamin D3) [Vitamin D3] 50,000 unit PO WESA 11/02/14 [History] Magnesium Oxide [Magnesium] 400 mg PO BID 11/02/14 [History] Aspirin 81 mg PO DAILY 30 Days 11/08/14 [Rx] Ipratropium/Albuterol Neb [Duoneb] 3 ml IH Q4HR PRN 04/26/15 [History] Rifaximin [Xifaxan] 550 mg PO BID #60 tablet 05/01/15 [Rx] Cyanocobalamin (Vitamin B-12) [Vitamin B12] 1,000 mcg PO DAILY 09/03/15 [History ] Zinc Sulfate 220 mg PO BID 09/03/15 [History] Insulin DETEMIR [Levemir Flextouch] 26 unit SQ BID 10/07/15 [History] Insulin LISPRO [Humalog Kwikpen U-100] 0 unit SQ ACHS 10/07/15 [History] Lactulose 15 ml PO TID PRN 10/07/15 [History] Levothyroxine [Synthroid] 100 mcg PO QAM 10/07/15 [History] Acetaminophen with Codeine [Acetaminophen-Cod #4 Tablet] 1 tab PO Q6H PRN [History] Oxygen 2 l NS AD 12/22/15 [History] Ondansetron ODT [Zofran ODT] 4 mg SL TID PRN 04/02/16 [History] Ranitidine HCl 150 mg PO BID 04/02/16 [History] Diclofenac Sodium 1 appl TP QID PRN 04/09/16 [History] Pantoprazole Sodium [Protonix] 40 mg PO BID #60 tablet. 04/15/16 [Rx] Sucralfate [Carafate] 1 gm PO QIDAC 30 Days 04/15/16 [Rx] Midodrine HCl 2.5 mg PO TID 05/19/16 [History] Allergies No Known Allergies Allergy (Verified 06/29/15 16:22) ROS unobtainable: due to mental status Palliative Care-Exam - Constitutional Vitals: Temp Pulse Resp BP Pulse Ox 98.8 F 76 16 143/62 99 05/20/16 07:00 05/20/16 07:00 05/20/16 07:00 05/20/16 07:00 05/20/16 07:00 General appearance: Present: no acute distress - Head Head Exam: Present: normal inspection, normocephalic - Eye Eye exam: Present: normal appearance, PERRL - Respiratory Respiratory exam: Present: decreased breath sounds, CTAB - Cardiovascular Cardiovascular exam: Present: +S1, +S2 - GI/Abdominal Exam additional comments: Abd softly distended. Tender to palpation - Extremities Exam Extremities exam: Present: normal capillary refill, normal inspection - Neurological Exam Neurological exam: Present: alert, strengths equal and symetr throughout Additional comments: Oriented to name and place, needs re-oriented to time and situation. - Skin Skin exam: Present: dry, pallor, warm Internal Medicine - CN: Reslt - Labs CBC & Chem 7: 05/20/16 04:30 05/20/16 04:30 Labs: Short CBC 05/20/16 Range/Units 04:30 WBC 3.2 L (4.3-11.1) K/mcL Hgb 7.4 L (11.5-15.4) g/dL Hct 23.9 L (35.3-44.9) % Plt Count 72 L (140-400) K/mcL Neutrophils # 2.0 (1.6-8.9) K/mcL BMP 05/19/16 05/20/16 21:27 04:30 Sodium 140 142 Potassium 5.2 H 4.8 H Chloride 116 H 118 H Carbon Dioxide 17 L 15 L BUN 52 H 49 H Creatinine 2.22 H 2.06 H Glucose 152 H 110 H Calcium 7.9 L 8.3 L - ABG Interpretation ABG results: PT/INR, D-dimer PT 13.2 Seconds (9.4-12.1) H 05/19/16 13:21 Consult Discharge Plan - Plan Referrals: Travis Deng Jr, MD [Primary Care Provider] - Palliative Quality Palliative Quality: Screen for Code Status: Yes, Screen for Goals of Care: Yes, Screen for Pain: Yes, If Pain Regimen Started, Initiate Bowel Regimen: NA, Screen for Nausea/Vomitting: Yes
[2016-05-20] MEDS: Lactulose Oral Soln 20 GM/30 ML UDC PO SCH ×2 (13:37→21:16)
[2016-05-20] MEDS: Zinc Sulfate 220 MG CAPSULE PO SCH (13:37)
[2016-05-20 15:00] LABS: Bilirubin,Urine Negative (Negative); Blood,Urine Large (Negative); Clarity,Urine Cloudy (Clear); Color,Urine Dark Yellow (Yellow); Glucose,Urine (UA) Normal (Normal); Ketones,Urine Negative (Negative); Leukocyte Esterase,Urine Moderate (Negative); Nitrite,Urine Positive (Negative); Protein,Urine 100 mg/dL (Neg-Trace); Specific Gravity,Urine 1.025 (1.010-1.025); Urobilinogen,Urine Normal (Normal)
[2016-05-20 15:02] LABS: Bacteria,Urine Many per hpf (None-Few); Hyaline Casts,Urine None Seen per lpf (None-Few); RBC,Urine 30-50 per hpf (0-3); Squamous Epithelial Cell,Urine Many per lpf (None-Few); WBC,Urine 50-100 per hpf (0-3)
--- NOTE | 2016-05-20 18:04 | Electrocardiograph Report ---
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
[2016-05-21] MEDS ORDERED: 0.9 % Sodium Chloride 250 ML ONE ×3 (02:21→22:36)
[2016-05-21 08:02] LABS: Mean Corpuscular HGB Conc 31.1 g/dL (31.6-35.5); Red Cell Distribution Width 17.8 % (11.5-14.5)
[2016-05-21 08:04] LABS: Hematocrit 28.3 % (35.3-44.9); Hemoglobin 8.8 g/dL (11.5-15.4); Immature Platelets 3.9 % (1.1-6.1); Mean Corpuscular Hemoglobin 28.5 pg (28.0-33.3); Mean Corpuscular Volume 91.6 fL (83.0-100.0); Mean Platelet Volume 10.9 fL (9.4-12.4); Red Blood Count 3.09 M/mcL (3.82-4.97)
[2016-05-21 08:10] LABS: Calcium 8.2 mg/dL (8.6-10.8); Magnesium 2.3 mg/dL (1.6-2.6); Phosphorous 3.6 mg/dL (2.3-4.7); Potassium 4.1 mEq/L (3.5-4.5)
[2016-05-21] MEDS: Insulin LISPRO 300 UNITS/3 ML VIAL SQ SCH ×4 (09:01→22:11)
[2016-05-21] MEDS: Pantoprazole 40 MG VIAL IVP SCH (09:08)
[2016-05-21] MEDS: Zinc Sulfate 220 MG CAPSULE PO SCH (09:08)
[2016-05-21] MEDS: Lactulose Oral Soln 20 GM/30 ML UDC PO SCH ×3 (09:08→22:11)
[2016-05-21] MEDS: Linezolid 600 MG TABLET PO SCH ×2 (12:27→22:11)
--- NOTE | 2016-05-21 14:41 | Internal Med Progress Note ---
Date of Encounter: 05/21/16 Time of Encounter: 14:39 - Assessment and plan (1) Altered mental status Current Visit: No Status: Resolved Assessment and plan: Altered mental status resolved. Patient is alert and oriented 3. Patient denies any abdominal pain, vomiting, nausea, bleeding per rectum or melena. Altered mental status is likely secondary to hepatic encephalopathy which is regarding after she had couple of bowel movements. 05/21/2016. Altered mental status is likely secondary to sepsis. Source of sepsis is likely urinary tract infection. 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 Will start patient on Zyvox Qualifiers: Altered mental status type: unspecified Qualified Code(s): R41.82 - Altered mental status, unspecified (2) Chronic liver disease and cirrhosis Current Visit: Yes Status: Chronic Assessment and plan: Patient is known to have a chronic liver disease and cirrhosis. Patient was seen by train station agent this Wednesday. Patient went for abdominal paracentesis by IR Patient does and once liver cirrhosis: Child's Kim C, MELD score 22. Case discussed with the train station agent, . He recommends conservative management for possible GI bleed. Reason for consult medical management is patient is very high risk for any kind of intervention. Plan: Transfuse 2 units of PRBC if hemoglobin less than 8. IV PPI every 12 hours. Fall-up percussion. We will do abdominal paracentesis if it gets worse in next 1-2 days. Plan discussed with the patient and her family members. The understood and verbalized understanding. (3) Insulin dependent diabetes mellitus Current Visit: No Status: Chronic Assessment and plan: ACHS SCSI home dose resume. (4) Thrombocytopenia Current Visit: No Status: Chronic Assessment and plan: secondary to cirrhosis (5) DVT prophylaxis Current Visit: No Status: Acute Assessment and plan: Elevated INR secondary to Cirrhosis: autoanticoagulated. Medical risk management: Patient has a moderate to severe risk of worsening in spite of being on appropriate medical therapy. Palliative consult was placed and we will wait for their recommendation. - Subjective Interval history: seen and examined. chart reviewed. Patient is alert and oriented 3. Patient denies any melena/vomiting/diarrhea/abdominal pain 05/21/2016 Seen examined. Chart reviewed. Patient complains of occasional dysuria. She denies any hematuria, vomiting, diarrhea, abdominal pain - Constitutional Vitals: Temp Pulse Resp BP Pulse Ox 98 F 63 18 136/68 97 05/21/16 07:41 05/21/16 12:14 05/21/16 12:14 05/21/16 12:14 05/21/16 12:14 General appearance: Present: A&O X 3, answers questions appropriately - Head Head exam: Present: atraumatic, normocephalic - Eye Eye exam: Present: PERRL, conjuntiva pink, sclera anicteric Pupils: Present: PERRL - Neck Neck exam general surgery: Present: supple, trachea midline. Absent: lymphadenopathy - Respiratory Respiratory exam: Present: CTAB. Absent: accessory muscle use, rales, rhonchi, wheezes - Cardiovascular Cardiovascular exam: Present: RRR, +S1, +S2. Absent: diastolic murmur, gallop, rubs, systolic murmur - GI/Abdominal GI/Abdominal exam: Present: normal bowel sounds, soft, no peritoneal signs. Absent: distended, tenderness - Extremities Exam Extremities exam: Present: warm, radial pulses palpable and symetrical. Absent : calf tenderness, cyanotic, pedal edema - Neurological Exam Neurological exam: Present: CN II-XII intact, oriented X3, no focal deficits. Absent: pronater drift, facial droop, speech deficit - Skin Skin exam: Present: dry, intact Internal Medicine: Result - Labs CBC & Chem 7: 05/21/16 07:15 05/21/16 07:15 Labs: Short CBC 05/21/16 Range/Units 07:15 WBC 3.3 L (4.3-11.1) K/mcL Hgb 8.8 L (11.5-15.4) g/dL Hct 28.3 L (35.3-44.9) % Plt Count 64 L (140-400) K/mcL BMP 05/21/16 07:15 Sodium 141 Potassium 4.1 Chloride 117 H Carbon Dioxide 15 L BUN 44 H Creatinine 1.88 H Glucose 170 H Calcium 8.2 L Urine 05/20/16 Range/Units 14:49 Urine Color Dark Yellow (Yellow) Urine Clarity Cloudy A (Clear) Urine pH 6.0 (5.0-8.0) pH Units Ur Specific [place] 1.025 (1.010-1.025) Urine Protein 100 H (Neg-Trace) mg/dL Urine Glucose (UA) Normal (Normal) mg/dL - ABG Interpretation ABG results: PT/INR, D-dimer PT 13.2 Seconds (9.4-12.1) H 05/19/16 13:21 - VTE Documentation of Mechanical Device: Graduated compression elastic hosiery Consult Discharge Plan - Plan Referrals: Travis Deng Jr, MD [Primary Care Provider] -
[2016-05-22 06:26] LABS: Basophils % 0.9 %; Eosinophils # 0.2 K/mcL (0.0-0.6); Eosinophils % 5.8 %; Immature Granulocytes % 0.3 % (0-4); Immature Platelets 4.4 % (1.1-6.1); Lymphocytes # 0.7 K/mcL (0.6-4.6); Lymphocytes % 19.4 %; Mean Corpuscular HGB Conc 31.3 g/dL (31.6-35.5); Mean Corpuscular Hemoglobin 28.6 pg (28.0-33.3); Mean Corpuscular Volume 91.4 fL (83.0-100.0); Mean Platelet Volume 10.8 fL (9.4-12.4); Monocytes # 0.6 K/mcL (0.0-1.3); Monocytes % 16.2 %; Red Cell Distribution Width 17.3 % (11.5-14.5); Segmented Neutrophils % 57.4 %
[2016-05-22 06:28] LABS: Platelet Count 62 K/mcL (140-400)
[2016-05-22] MEDS: Zinc Sulfate 220 MG CAPSULE PO SCH (09:48)
[2016-05-22] MEDS: Pantoprazole 40 MG VIAL IVP SCH (09:49)
[2016-05-22] MEDS: Lactulose Oral Soln 20 GM/30 ML UDC PO SCH ×3 (09:49→21:33)
[2016-05-22] MEDS: Linezolid 600 MG TABLET PO SCH ×2 (09:49→21:33)
[2016-05-22] MEDS: Insulin LISPRO 300 UNITS/3 ML VIAL SQ SCH ×5 (09:49→21:33)
--- NOTE | 2016-05-22 12:13 | Event Note ---
Date of Encounter: 05/22/16 Time of Encounter: 12:10 Patient sleeping soundly. Son Ok at bedside. We had long discussion regarding overall prognosis. He understands that at some point in time, she may have an event that she is too weak to overcome. We discussed that if their goals of care ever change, he could have hospice referral at home at least come and provide information, and evaluate her for program. Currently, he still desires current level of care, and wants to continue home health and passport when she is ready for discharge. He was very appreciative and thankful of our conversation and information. Palliative will follow from distance, and recheck on Wednesday if she remains in the hospital.
--- NOTE | 2016-05-22 16:46 | Internal Med Progress Note ---
Date of Encounter: 05/22/16 Time of Encounter: 16:44 - Assessment and plan (1) Altered mental status Current Visit: No Status: Resolved Assessment and plan: Altered mental status resolved. Patient is alert and oriented 3. Patient denies any abdominal pain, vomiting, nausea, bleeding per rectum or melena. Altered mental status is likely secondary to hepatic encephalopathy which is regarding after she had couple of bowel movements. 05/21/2016. Altered mental status is likely secondary to sepsis. Source of sepsis is likely urinary tract infection. 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 Will start patient on Zyvox 05/22/2016 Patient mental status is improved. Source of sepsis is likely urinary tract infection. Today is a Day 2 of Zyvox Qualifiers: Altered mental status type: unspecified Qualified Code(s): R41.82 - Altered mental status, unspecified (2) Chronic liver disease and cirrhosis Current Visit: Yes Status: Chronic Assessment and plan: Patient is known to have a chronic liver disease and cirrhosis. Patient was seen by iso coordinator this Wednesday. Patient went for abdominal paracentesis by IR Patient does and once liver cirrhosis: Child's Kim C, MELD score 22. Case discussed with the iso coordinator, . He recommends conservative management for possible GI bleed. Reason for consult medical management is patient is very high risk for any kind of intervention. Plan: Transfuse 2 units of PRBC if hemoglobin less than 8. IV PPI every 12 hours. Fall-up percussion. We will do abdominal paracentesis if it gets worse in next 1-2 days. Plan discussed with the patient and her family members. The understood and verbalized understanding. (3) Insulin dependent diabetes mellitus Current Visit: No Status: Chronic Assessment and plan: ACHS SCSI home dose resume. (4) Thrombocytopenia Current Visit: No Status: Chronic Assessment and plan: secondary to cirrhosis (5) DVT prophylaxis Current Visit: No Status: Acute Assessment and plan: Elevated INR secondary to Cirrhosis: autoanticoagulated. Medical risk management: Patient has a moderate to severe risk of worsening in spite of being on appropriate medical therapy. Palliative consult was placed and we will wait for their recommendation. - Subjective Interval history: seen and examined. chart reviewed. Patient is alert and oriented 3. Patient denies any melena/vomiting/diarrhea/abdominal pain 05/21/2016 Seen examined. Chart reviewed. Patient complains of occasional dysuria. She denies any hematuria, vomiting, diarrhea, abdominal pain. 05/22/2016 Seen and examined. Chart reviewed. Patient does not complain any dysuria. She denies any hematuria, vomiting, diarrhea, abdominal pain. She denies short of breath. - Constitutional Vitals: Temp Pulse Resp BP Pulse Ox 97.7 F 87 16 134/65 97 05/22/16 15:27 05/22/16 15:27 05/22/16 15:27 05/22/16 15:27 05/22/16 15:27 General appearance: Present: A&O X 3, answers questions appropriately - Head Head exam: Present: atraumatic, normocephalic - Eye Eye exam: Present: PERRL, conjuntiva pink, sclera anicteric Pupils: Present: PERRL - Neck Neck exam general surgery: Present: supple, trachea midline. Absent: lymphadenopathy - Respiratory Respiratory exam: Present: CTAB. Absent: accessory muscle use, rales, rhonchi, wheezes - Cardiovascular Cardiovascular exam: Present: RRR, +S1, +S2. Absent: diastolic murmur, gallop, rubs, systolic murmur - GI/Abdominal GI/Abdominal exam: Present: normal bowel sounds, soft, no peritoneal signs. Absent: distended, tenderness - Extremities Exam Extremities exam: Present: warm, radial pulses palpable and symetrical. Absent : calf tenderness, cyanotic, pedal edema - Neurological Exam Neurological exam: Present: CN II-XII intact, oriented X3, no focal deficits. Absent: pronater drift, facial droop, speech deficit - Skin Skin exam: Present: dry, intact Internal Medicine: Result - Labs CBC & Chem 7: 05/22/16 06:00 05/21/16 07:15 Labs: Short CBC 05/22/16 Range/Units 06:00 WBC 3.5 L (4.3-11.1) K/mcL Hgb 10.0 L (11.5-15.4) g/dL Hct 32.0 L (35.3-44.9) % Plt Count 62 L (140-400) K/mcL Neutrophils # 2.0 (1.6-8.9) K/mcL - ABG Interpretation ABG results: PT/INR, D-dimer PT 13.2 Seconds (9.4-12.1) H 05/19/16 13:21 - VTE Documentation of Mechanical Device: Graduated compression elastic hosiery Consult Discharge Plan - Plan Referrals: Travis Deng Jr, MD [Primary Care Provider] -
[2016-05-23 04:42] LABS: Basophils % 0.8 %; Eosinophils # 0.4 K/mcL (0.0-0.6); Eosinophils % 7.3 %; Hematocrit 33.6 % (35.3-44.9); Hemoglobin 10.6 g/dL (11.5-15.4); Immature Granulocytes % 0.2 % (0-4); Lymphocytes # 0.8 K/mcL (0.6-4.6); Mean Corpuscular HGB Conc 31.5 g/dL (31.6-35.5); Mean Corpuscular Hemoglobin 29.1 pg (28.0-33.3); Mean Corpuscular Volume 92.3 fL (83.0-100.0); Mean Platelet Volume 10.9 fL (9.4-12.4); Monocytes # 0.8 K/mcL (0.0-1.3); Monocytes % 16.2 %; Neutrophils # 2.9 K/mcL (1.6-8.9); Red Blood Count 3.64 M/mcL (3.82-4.97); Red Cell Distribution Width 16.9 % (11.5-14.5); Segmented Neutrophils % 59.5 %
[2016-05-23 04:43] LABS: Platelet Count 60 K/mcL (140-400)
[2016-05-23 04:56] LABS: Albumin 3.1 g/dL (3.5-5.0); Calcium 8.5 mg/dL (8.6-10.8); Potassium 4.2 mEq/L (3.5-4.5); Total Protein 6.1 g/dL (6.0-8.3)
[2016-05-23] MEDS: Pantoprazole 40 MG VIAL IVP SCH (08:56)
[2016-05-23] MEDS: Linezolid 600 MG TABLET PO SCH ×2 (08:56→20:51)
[2016-05-23] MEDS: Lactulose Oral Soln 20 GM/30 ML UDC PO SCH ×3 (08:56→20:52)
[2016-05-23] MEDS: Insulin LISPRO 300 UNITS/3 ML VIAL SQ SCH ×4 (08:56→20:54)
[2016-05-23] MEDS: Zinc Sulfate 220 MG CAPSULE PO SCH (09:07)
--- NOTE | 2016-05-23 14:32 | Internal Med Progress Note ---
Date of Encounter: 05/23/16 Time of Encounter: 14:30 - Assessment and plan (1) Altered mental status Current Visit: No Status: Resolved Assessment and plan: Altered mental status resolved. Patient is alert and oriented 3. Patient denies any abdominal pain, vomiting, nausea, bleeding per rectum or melena. Altered mental status is likely secondary to hepatic encephalopathy which is regarding after she had couple of bowel movements. 05/21/2016. Altered mental status is likely secondary to sepsis. Source of sepsis is likely urinary tract infection. 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 Will start patient on Zyvox 05/22/2016 Patient mental status is improved. Source of sepsis is likely urinary tract infection. Today is a Day 2 of Zyvox 05/23/2016 Day 3: Zyvox Source of sepsis: Likely urinary We will continue by mouth Zyvox. This is a possible results for altered mental status. Qualifiers: Altered mental status type: unspecified Qualified Code(s): R41.82 - Altered mental status, unspecified (2) Chronic liver disease and cirrhosis Current Visit: Yes Status: Chronic Assessment and plan: Patient is known to have a chronic liver disease and cirrhosis. Patient was seen by shredder tender this Wednesday. Patient went for abdominal paracentesis by IR Patient does and once liver cirrhosis: Child's Kim C, MELD score 22. Case discussed with the shredder tender, . He recommends conservative management for possible GI bleed. Reason for consult medical management is patient is very high risk for any kind of intervention. Plan: Transfuse 2 units of PRBC if hemoglobin less than 8. IV PPI every 12 hours. Fall-up percussion. We will do abdominal paracentesis if it gets worse in next 1-2 days. Plan discussed with the patient and her family members. The understood and verbalized understanding. (3) Insulin dependent diabetes mellitus Current Visit: No Status: Chronic Assessment and plan: ACHS SCSI home dose resume. (4) Thrombocytopenia Current Visit: No Status: Chronic Assessment and plan: secondary to cirrhosis (5) DVT prophylaxis Current Visit: No Status: Acute Assessment and plan: Elevated INR secondary to Cirrhosis: autoanticoagulated. Medical risk management: Patient has a moderate to severe risk of worsening in spite of being on appropriate medical therapy. Palliative consult was placed and we will wait for their recommendation. - Subjective Interval history: seen and examined. chart reviewed. Patient is alert and oriented 3. Patient denies any melena/vomiting/diarrhea/abdominal pain 05/21/2016 Seen examined. Chart reviewed. Patient complains of occasional dysuria. She denies any hematuria, vomiting, diarrhea, abdominal pain. 05/22/2016 Seen and examined. Chart reviewed. Patient does not complain any dysuria. She denies any hematuria, vomiting, diarrhea, abdominal pain. She denies short of breath. 05/23/2016 Seen and examined. Chart reviewed. Patient denies any hematuria, increased frequency, vomiting, diarrhea or abdominal pain. - Constitutional Vitals: Temp Pulse Resp BP Pulse Ox 99.4 F 92 16 152/63 95 05/23/16 12:21 05/23/16 12:21 05/23/16 12:21 05/23/16 12:21 05/23/16 12:21 General appearance: Present: A&O X 3, answers questions appropriately - Head Head exam: Present: atraumatic, normocephalic - Eye Eye exam: Present: PERRL, conjuntiva pink, sclera anicteric Pupils: Present: PERRL - Neck Neck exam general surgery: Present: supple, trachea midline. Absent: lymphadenopathy - Respiratory Respiratory exam: Present: CTAB. Absent: accessory muscle use, rales, rhonchi, wheezes - Cardiovascular Cardiovascular exam: Present: RRR, +S1, +S2. Absent: diastolic murmur, gallop, rubs, systolic murmur - GI/Abdominal GI/Abdominal exam: Present: normal bowel sounds, soft, no peritoneal signs. Absent: distended, tenderness - Extremities Exam Extremities exam: Present: warm, radial pulses palpable and symetrical. Absent : calf tenderness, cyanotic, pedal edema - Neurological Exam Neurological exam: Present: CN II-XII intact, oriented X3, no focal deficits. Absent: pronater drift, facial droop, speech deficit - Skin Skin exam: Present: dry, intact Internal Medicine: Result - Labs CBC & Chem 7: 05/23/16 04:35 05/23/16 04:35 Labs: Short CBC 05/23/16 Range/Units 04:35 WBC 4.8 (4.3-11.1) K/mcL Hgb 10.6 L (11.5-15.4) g/dL Hct 33.6 L (35.3-44.9) % Plt Count 60 L (140-400) K/mcL Neutrophils # 2.9 (1.6-8.9) K/mcL BMP 05/23/16 04:35 Sodium 137 Potassium 4.2 Chloride 115 H Carbon Dioxide 11 L BUN 34 H D Creatinine 1.71 H Glucose 183 H Calcium 8.5 L Liver Function 05/23/16 Range/Units 04:35 Total Bilirubin 2.0 H (0.2-1.2) mg/dL AST 51 H (5-34) Units/L ALT 20 (0-55) Units/L Alkaline Phosphatase 122 (38-126) Units/L Albumin 3.1 L (3.5-5.0) g/dL - ABG Interpretation ABG results: PT/INR, D-dimer PT 13.2 Seconds (9.4-12.1) H 05/19/16 13:21 - VTE Documentation of Mechanical Device: Graduated compression elastic hosiery Consult Discharge Plan - Plan Referrals: Travis Deng Jr, MD [Primary Care Provider] -
[2016-05-23] MEDS: *HR* OxyCODONE Immed Rel 5 MG TABLET PO PRN (20:52)
[2016-05-24 05:46] LABS: Basophils % 0.9 %; Hemoglobin 10.2 g/dL (11.5-15.4); Immature Granulocytes % 0.2 % (0-4); Red Cell Distribution Width 16.5 % (11.5-14.5)
[2016-05-24 05:48] LABS: Eosinophils # 0.3 K/mcL (0.0-0.6); Eosinophils % 7.2 %; Hematocrit 32.7 % (35.3-44.9); Immature Platelets 4.2 % (1.1-6.1); Lymphocytes # 0.9 K/mcL (0.6-4.6); Lymphocytes % 18.5 %; Mean Corpuscular HGB Conc 31.2 g/dL (31.6-35.5); Mean Corpuscular Hemoglobin 28.7 pg (28.0-33.3); Mean Corpuscular Volume 92.1 fL (83.0-100.0); Monocytes # 0.6 K/mcL (0.0-1.3); Monocytes % 13.1 %; Neutrophils # 2.8 K/mcL (1.6-8.9); Red Blood Count 3.55 M/mcL (3.82-4.97); Segmented Neutrophils % 60.1 %
[2016-05-24 05:52] LABS: Platelet Count 65 K/mcL (140-400)
[2016-05-24 06:11] LABS: Albumin 2.9 g/dL (3.5-5.0); Albumin/Globulin Ratio 0.9 (1.1-2.2); Calcium 8.4 mg/dL (8.6-10.8); Globulin 3.1 g/dL (2.4-3.5); Potassium 4.2 mEq/L (3.5-4.5)
[2016-05-24] MEDS: Zinc Sulfate 220 MG CAPSULE PO SCH (09:39)
[2016-05-24] MEDS: Pantoprazole 40 MG VIAL IVP SCH (09:39)
[2016-05-24] MEDS: Insulin LISPRO 300 UNITS/3 ML VIAL SQ SCH ×4 (09:39→21:34)
[2016-05-24] MEDS: Linezolid 600 MG TABLET PO SCH ×2 (09:39→21:30)
[2016-05-24] MEDS: Lactulose Oral Soln 20 GM/30 ML UDC PO SCH ×3 (09:40→21:30)
--- NOTE | 2016-05-24 13:53 | Internal Med Progress Note ---
Date of Encounter: 05/24/16 Time of Encounter: 13:51 - Assessment and plan (1) Altered mental status Current Visit: No Status: Resolved Assessment and plan: Altered mental status resolved. Patient is alert and oriented 3. Patient denies any abdominal pain, vomiting, nausea, bleeding per rectum or melena. Altered mental status is likely secondary to hepatic encephalopathy which is regarding after she had couple of bowel movements. 05/21/2016. Altered mental status is likely secondary to sepsis. Source of sepsis is likely urinary tract infection. 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 Will start patient on Zyvox 05/22/2016 Patient mental status is improved. Source of sepsis is likely urinary tract infection. Today is a Day 2 of Zyvox 05/23/2016 Day 3: Zyvox Source of sepsis: Likely urinary We will continue by mouth Zyvox. This is a possible results for altered mental status. 05/24/2016 Day 4: Zyvox Source of sepsis: Likely urine We will continue for 1 more day antibiotics. Qualifiers: Altered mental status type: unspecified Qualified Code(s): R41.82 - Altered mental status, unspecified (2) Chronic liver disease and cirrhosis Current Visit: Yes Status: Chronic Assessment and plan: Patient is known to have a chronic liver disease and cirrhosis. Patient was seen by water proofer this Wednesday. Patient went for abdominal paracentesis by IR Patient does and once liver cirrhosis: Child's Kim C, MELD score 22. Case discussed with the water proofer, . He recommends conservative management for possible GI bleed. Reason for consult medical management is patient is very high risk for any kind of intervention. Plan: Transfuse 2 units of PRBC if hemoglobin less than 8. IV PPI every 12 hours. Fall-up percussion. We will do abdominal paracentesis if it gets worse in next 1-2 days. Plan discussed with the patient and her family members. The understood and verbalized understanding. 05/24/2016. We will do abdominal paracentesis tomorrow. After paracentesis patient can go home tomorrow. (3) Insulin dependent diabetes mellitus Current Visit: No Status: Chronic Assessment and plan: ACHS SCSI home dose resume. (4) Thrombocytopenia Current Visit: No Status: Chronic Assessment and plan: secondary to cirrhosis (5) DVT prophylaxis Current Visit: No Status: Acute Assessment and plan: Elevated INR secondary to Cirrhosis: autoanticoagulated. Medical risk management: Patient has a moderate to severe risk of worsening in spite of being on appropriate medical therapy. Palliative consult was placed and we will wait for their recommendation. - Subjective Interval history: seen and examined. chart reviewed. Patient is alert and oriented 3. Patient denies any melena/vomiting/diarrhea/abdominal pain 05/21/2016 Seen examined. Chart reviewed. Patient complains of occasional dysuria. She denies any hematuria, vomiting, diarrhea, abdominal pain. 05/22/2016 Seen and examined. Chart reviewed. Patient does not complain any dysuria. She denies any hematuria, vomiting, diarrhea, abdominal pain. She denies short of breath. 05/23/2016 Seen and examined. Chart reviewed. Patient denies any hematuria, increased frequency, vomiting, diarrhea or abdominal pain. 05/24/2016 Patient seen and examined. Chart reviewed. Patient denies hematuria, dysuria, increased frequency. Patient of occasional shortness of breath. Patient has a distended abdomen. - Constitutional Vitals: Temp Pulse Resp BP Pulse Ox 98.3 F 82 16 154/67 99 05/24/16 11:42 05/24/16 11:42 05/24/16 11:42 05/24/16 11:42 05/24/16 11:42 General appearance: Present: A&O X 3, answers questions appropriately - Head Head exam: Present: atraumatic, normocephalic - Eye Eye exam: Present: PERRL, conjuntiva pink, sclera anicteric Pupils: Present: PERRL - Neck Neck exam general surgery: Present: supple, trachea midline. Absent: lymphadenopathy - Respiratory Respiratory exam: Present: CTAB. Absent: accessory muscle use, rales, rhonchi, wheezes - Cardiovascular Cardiovascular exam: Present: RRR, +S1, +S2. Absent: diastolic murmur, gallop, rubs, systolic murmur - GI/Abdominal GI/Abdominal exam: Present: normal bowel sounds, soft, no peritoneal signs. Absent: distended, tenderness - Extremities Exam Extremities exam: Present: warm, radial pulses palpable and symetrical. Absent : calf tenderness, cyanotic, pedal edema - Neurological Exam Neurological exam: Present: CN II-XII intact, oriented X3, no focal deficits. Absent: pronater drift, facial droop, speech deficit - Skin Skin exam: Present: dry, intact Internal Medicine: Result - Labs CBC & Chem 7: 05/24/16 05:19 05/24/16 05:19 Labs: Short CBC 05/24/16 Range/Units 05:19 WBC 4.6 (4.3-11.1) K/mcL Hgb 10.2 L (11.5-15.4) g/dL Hct 32.7 L (35.3-44.9) % Plt Count 65 L (140-400) K/mcL Neutrophils # 2.8 (1.6-8.9) K/mcL BMP 05/24/16 05:19 Sodium 135 L Potassium 4.2 Chloride 112 H Carbon Dioxide 15 L BUN 36 H Creatinine 1.94 H Glucose 182 H Calcium 8.4 L Liver Function 05/24/16 Range/Units 05:19 Total Bilirubin 2.0 H (0.2-1.2) mg/dL AST 41 H (5-34) Units/L ALT 17 (0-55) Units/L Alkaline Phosphatase 124 (38-126) Units/L Albumin 2.9 L (3.5-5.0) g/dL - ABG Interpretation ABG results: PT/INR, D-dimer PT 13.2 Seconds (9.4-12.1) H 05/19/16 13:21 - VTE Documentation of Mechanical Device: Graduated compression elastic hosiery Consult Discharge Plan - Plan Referrals: Travis Deng Jr, MD [Primary Care Provider] -
[2016-05-24] MEDS: *HR* OxyCODONE Immed Rel 5 MG TABLET PO PRN (18:07)
[2016-05-24] MEDS ORDERED: *HR* Morphine 2 MG/ML SYRINGE IVP ONE (20:07)
[2016-05-25 05:57] LABS: Immature Granulocytes % 0.2 % (0-4); Red Cell Distribution Width 16.4 % (11.5-14.5)
[2016-05-25 05:59] LABS: Eosinophils # 0.3 K/mcL (0.0-0.6); Eosinophils % 6.9 %; Hematocrit 31.2 % (35.3-44.9); Hemoglobin 9.8 g/dL (11.5-15.4); Immature Platelets 4.4 % (1.1-6.1); Lymphocytes % 18.2 %; Mean Corpuscular HGB Conc 31.4 g/dL (31.6-35.5); Mean Corpuscular Hemoglobin 28.9 pg (28.0-33.3); Mean Platelet Volume 10.6 fL (9.4-12.4); Monocytes % 13.3 %; Neutrophils # 2.5 K/mcL (1.6-8.9); Red Blood Count 3.39 M/mcL (3.82-4.97); Segmented Neutrophils % 60.4 %
[2016-05-25 06:00] LABS: Lymphocytes # 0.8 K/mcL (0.6-4.6); Monocytes # 0.6 K/mcL (0.0-1.3); Platelet Count 57 K/mcL (140-400)
[2016-05-25 06:11] LABS: Albumin 2.9 g/dL (3.5-5.0); Bilirubin,Total 1.9 mg/dL (0.2-1.2); Calcium 8.5 mg/dL (8.6-10.8); Globulin 2.9 g/dL (2.4-3.5); Total Protein 5.8 g/dL (6.0-8.3)
[2016-05-25 08:46] LABS: INR 1.3; Prothrombin Time 14.2 Seconds (9.4-12.1)
--- NOTE | 2016-05-25 09:08 | Discharge Summary ---
<Alonzo Hernandez - Last Filed: 05/25/16 16:13> Date of Encounter: 05/25/16 Time of Encounter: 08:45 - Discharge Diagnosis (1) Toxic metabolic encephalopathy Priority: Primary Status: Acute (2) Anemia Priority: Secondary Status: Chronic Qualifiers: Iron deficiency anemia type: chronic blood loss Qualified Code(s): D50.0 - Iron deficiency anemia secondary to blood loss (chronic) (3) CKD (chronic kidney disease) Priority: Secondary Status: Chronic Qualifiers: Chronic kidney disease stage: stage 3 (moderate) Qualified Code(s): N18.3 - Chronic kidney disease, stage 3 (moderate) (4) UTI (urinary tract infection) Priority: Primary Status: Acute Qualifiers: Hematuria presence: without hematuria Qualified Code(s): N39.0 - Urinary tract infection, site not specified (5) Hepatic encephalopathy Priority: Primary Status: Chronic (6) Pancytopenia Priority: Secondary Status: Chronic - Discharge Medications Prescriptions: Linezolid [Zyvox] 600 mg PO BID #5 tablet Home Medications: Cholecalciferol (Vitamin D3) [Vitamin D3] 50,000 unit PO WESA 11/02/14 [History] Magnesium Oxide [Magnesium] 400 mg PO BID 11/02/14 [History] Aspirin 81 mg PO DAILY 30 Days 11/08/14 [Rx] Ipratropium/Albuterol Neb [Duoneb] 3 ml IH Q4HR PRN 04/26/15 [History] Rifaximin [Xifaxan] 550 mg PO BID #60 tablet 05/01/15 [Rx] Cyanocobalamin (Vitamin B-12) [Vitamin B12] 1,000 mcg PO DAILY 09/03/15 [History ] Zinc Sulfate 220 mg PO BID 09/03/15 [History] Insulin DETEMIR [Levemir Flextouch] 26 unit SQ BID 10/07/15 [History] Insulin LISPRO [Humalog Kwikpen U-100] 0 unit SQ ACHS 10/07/15 [History] Lactulose 15 ml PO TID PRN 10/07/15 [History] Levothyroxine [Synthroid] 100 mcg PO QAM 10/07/15 [History] Acetaminophen with Codeine [Acetaminophen-Cod #4 Tablet] 1 tab PO Q6H PRN [History] Oxygen 2 l NS AD 12/22/15 [History] Ondansetron ODT [Zofran ODT] 4 mg SL TID PRN 04/02/16 [History] Ranitidine HCl 150 mg PO BID 04/02/16 [History] Diclofenac Sodium 1 appl TP QID PRN 04/09/16 [History] Pantoprazole Sodium [Protonix] 40 mg PO BID #60 tablet. 04/15/16 [Rx] Sucralfate [Carafate] 1 gm PO QIDAC 30 Days 04/15/16 [Rx] Midodrine HCl 2.5 mg PO TID 05/19/16 [History] Linezolid [Zyvox] 600 mg PO BID #5 tablet 05/25/16 [Rx] Allergies/Adverse Reactions: Allergies No Known Allergies Allergy (Verified 06/29/15 16:22) Date of admission: 05/19/16 17:51 Primary care physician: Travis Deng Jr, MD Consults: 05/19/16 17:55 Consult to Palliative Care [CONS] Routine Comment: Consulting Provider: [facility] [place] 05/19/16 18:03 Consult to Linen Attendant [CONS] Routine Reason for SW Consult: discharge planning - need for home health 05/19/16 20:25 Consult to Linen Attendant [CONS] Routine Reason for SW Consult: home discharge with home health services. 05/19/16 21:07 Consult to Gastroenterology [CONS] Routine Consulting Provider: [facility] Reason for Consult: drop in HGB positive occult stool, Hx of varices, ulcer Time Notified: 21:14 Call Completed: Yes Discharging clinician: Rafael Jenkins Anticipated date of discharge: 05/25/16 - Patient Status Disposition: Home Health Service Condition: Fair Functional capacity at discharge: uses cane/walker Overall status at discharge: patient is progressing back to baseline - Discharge Instructions Instructions: Urinary Tract Infection in Women (DC), Sepsis (DC), Abdominal Paracentesis (DC), Ascites (DC) Follow Up With: Travis Deng Jr, MD [Primary Care Provider] - 06/03/16 1:00 pm - Diet and Activity Activity: increase activity as tolerated Diet: low fat, low cholesterol, low salt diet Hospital course: Ms. Flores is a 76 year old female history of cirrhosis with recurrent ascites presented with altered mental status and symptoms suggesting UTI. Urine culture would disclose VRE. She was started on zyvox 600mg PO BID. MELD score 16. GI consulted for anemia. She would be transfused 5 U PRBC, Hgb steady after 48 hours. GI would recommend conservative therapy, to forgo endoscopy as patient is very high risk because of her end-stage liver disease. Palliative consulted for goals of care. Patient wants to continue home health and passport when she is ready for discharge. Would consider hospice in the future pending clinical outcomes. On date of discharge, patient was clinically improved. She would undergo US guided paracentesis by IR with ~5L removed. She would have albumin infusion, remained hemodynamically stable. She will finish course of zyvox for 2 more days. Follow-up with her PCP Dr. Travis Deng. - Time Spent with Patient Total time spent providing and/or coordinating discharge services: Greater than 30 minutes - Constitutional Vitals: Temp Pulse Resp BP Pulse Ox 97.8 F 83 15 142/62 98 05/25/16 07:00 05/25/16 07:00 05/25/16 07:00 05/25/16 07:00 05/25/16 07:00 General appearance: Present: A&O X 3, answers questions appropriately - Head Head exam: Present: atraumatic, normocephalic - Eye Eye exam: Present: EOMI, sclera anicteric - ENT ENT exam: Present: mucous membranes moist - Neck Neck exam general surgery: Present: supple - Respiratory Respiratory exam: Present: accessory muscle use, prolonged expiratory phase, rhonchi, wheezes (scant) - Cardiovascular Cardiovascular exam: Present: +S1, +S2. Absent: JVD - GI/Abdominal GI/Abdominal exam: Present: soft, no peritoneal signs. Absent: tenderness Additional comments: RLQ reducible abd hernia - Extremities Exam Extremities exam: Present: warm, radial pulses palpable and symetrical. Absent : pedal edema Additional comments: scattered purpura rosa m LE - VTE Documentation of Mechanical Device: Graduated compression elastic hosiery <Rafael Jenkins P - Last Filed: 05/25/16 18:58> Date of Encounter: 05/25/16 - Discharge Diagnosis (1) Altered mental status Status: Resolved Qualifiers: Altered mental status type: unspecified Qualified Code(s): R41.82 - Altered mental status, unspecified (2) Chronic liver disease and cirrhosis Status: Chronic (3) Insulin dependent diabetes mellitus Status: Chronic (4) Thrombocytopenia Status: Chronic (5) DVT prophylaxis Status: Acute Procedures/tests Complete & Pending: Procedures Performed prior 72 hours Category Date Time Status IR paracentesis ultrasound [IR] Routine IR 05/25/16 Taken Date of admission: 05/19/16 17:51 Primary care physician: Travis Deng Jr, MD Consults: 05/19/16 17:55 Consult to Palliative Care [CONS] Routine Comment: Consulting Provider: [facility] [place] 05/19/16 18:03 Consult to Linen Attendant [CONS] Routine Reason for SW Consult: discharge planning - need for home health 05/19/16 20:25 Consult to Linen Attendant [CONS] Routine Reason for SW Consult: home discharge with home health services. 05/19/16 21:07 Consult to Gastroenterology [CONS] Routine Consulting Provider: [facility] Reason for Consult: drop in HGB positive occult stool, Hx of varices, ulcer Time Notified: 21:14 Call Completed: Yes 05/25/16 12:12 Consult to Interventional Radiology [CONS] Routine Consulting Provider: Radiology Interventional [place] Reason for Consult: US guided paracentesis, cirrhosis with recurrent ascites Call Completed: Yes Hospital course: Ms. Flores is a 76 year old female - Time Spent with Patient Total time spent providing and/or coordinating discharge services: - Constitutional Vitals: Temp Pulse Resp BP Pulse Ox 97.8 F 83 15 142/62 98 05/25/16 07:00 05/25/16 07:00 05/25/16 16:26 05/25/16 07:00 05/25/16 16:26 - Attending Attestation I examined this patient and my medical decision-making was reviewed with the ANTIQUE REFINISHER/PA/Advanced Practice Nurse/Resident Physician. I agree with the documented findings, disposition and treatment plan as described except to the extent set forth below.
[2016-05-25] MEDS: Insulin LISPRO 300 UNITS/3 ML VIAL SQ SCH ×4 (09:23→22:04)
[2016-05-25] MEDS: Lactulose Oral Soln 20 GM/30 ML UDC PO SCH ×3 (09:23→22:04)
[2016-05-25] MEDS: Pantoprazole 40 MG VIAL IVP SCH (09:24)
[2016-05-25] MEDS: Linezolid 600 MG TABLET PO SCH ×2 (09:24→22:04)
[2016-05-25] MEDS: Zinc Sulfate 220 MG CAPSULE PO SCH (09:24)
[2016-05-25] MEDS: Ipratropium/Albuterol Neb 3 ML IH SCH ×4 (10:46→19:42)
[2016-05-25] MEDS: *HR* OxyCODONE Immed Rel 5 MG TABLET PO PRN (12:00)
--- NOTE | 2016-05-25 15:03 | Physician Discharge Referral ---
<Alonzo Hernandez - Last Filed: 05/25/16 15:01> Home Health/Hosp Referral Info Transfer to: Home Health Attending Provider: Dr. Rafael Jenkins Provider in Charge Post Discharge: PCP - Diagnosis (1) Toxic metabolic encephalopathy Priority: Primary Status: Acute (2) Anemia Priority: Secondary Status: Chronic (3) CKD (chronic kidney disease) Priority: Secondary Status: Chronic (4) UTI (urinary tract infection) Priority: Primary Status: Acute (5) Hepatic encephalopathy Priority: Primary Status: Chronic (6) Pancytopenia Priority: Secondary Status: Chronic - Respiratory Orders Oxygen / L per min (2.5) Smoking Cessation: Smoking cessation has been advised. For more information, call the [place] Tobacco Quit Line at 0-409-XIMZ-NOW. - Diet/Nutrition Diet/Nutrition Orders: No Added Salt (LAURA), Cardiac - Activity Activity Orders: Chair - Services Needed Following services are medically necessary services: Home Health Aide, Physical Therapy, Occupational Therapy - Transfer Medications Prescriptions: Linezolid [Zyvox] 600 mg PO BID #5 tablet Home Medications: Cholecalciferol (Vitamin D3) [Vitamin D3] 50,000 unit PO WESA 11/02/14 [History] Magnesium Oxide [Magnesium] 400 mg PO BID 11/02/14 [History] Aspirin 81 mg PO DAILY 30 Days 11/08/14 [Rx] Ipratropium/Albuterol Neb [Duoneb] 3 ml IH Q4HR PRN 04/26/15 [History] Rifaximin [Xifaxan] 550 mg PO BID #60 tablet 05/01/15 [Rx] Cyanocobalamin (Vitamin B-12) [Vitamin B12] 1,000 mcg PO DAILY 09/03/15 [History ] Zinc Sulfate 220 mg PO BID 09/03/15 [History] Insulin DETEMIR [Levemir Flextouch] 26 unit SQ BID 10/07/15 [History] Insulin LISPRO [Humalog Kwikpen U-100] 0 unit SQ ACHS 10/07/15 [History] Lactulose 15 ml PO TID PRN 10/07/15 [History] Levothyroxine [Synthroid] 100 mcg PO QAM 10/07/15 [History] Acetaminophen with Codeine [Acetaminophen-Cod #4 Tablet] 1 tab PO Q6H PRN 11/06/ 16 [History] Oxygen 2 l NS AD 12/22/15 [History] Ondansetron ODT [Zofran ODT] 4 mg SL TID PRN 04/02/16 [History] Ranitidine HCl 150 mg PO BID 04/02/16 [History] Diclofenac Sodium 1 appl TP QID PRN 04/09/16 [History] Pantoprazole Sodium [Protonix] 40 mg PO BID #60 tablet. 04/15/16 [Rx] Sucralfate [Carafate] 1 gm PO QIDAC 30 Days 04/15/16 [Rx] Midodrine HCl 2.5 mg PO TID 05/19/16 [History] Linezolid [Zyvox] 600 mg PO BID #5 tablet 05/25/16 [Rx] Allergies/Adverse Reactions: Allergies No Known Allergies Allergy (Verified 06/29/15 16:22) Certification: Further, I certify that my clinical findings support that this patient is homebound (i.e. absences from home require considerable and taxing effort and are for medical reasons or bahai services or infrequently or short duration when for other reasons) because: Homebound Reason: Patient requires assistance of a person or device to safely leave home, Absences from home are contraindicated except to recieve medical care, Post-surgery restriction and or conditions limit ability to leave home, Leaving home requires considerable and taxing effort due to condition, Altered mental status requiring supervision when leaving home, Severity of cardiac or pulmonary status limits activity tolerance Attestation: My signature below is to certify that this patient is under my care and that I, or nurse practitioner, or a physician's phlebotomist lab assistant working with me, has a face-to -face encounter with this patient. <Rafael Jenkins P - Last Filed: 05/25/16 18:58> - Diagnosis (1) Altered mental status Status: Resolved (2) Chronic liver disease and cirrhosis Status: Chronic (3) Insulin dependent diabetes mellitus Status: Chronic (4) Thrombocytopenia Status: Chronic (5) DVT prophylaxis Status: Acute - Respiratory Orders Smoking Cessation: Smoking cessation has been advised. For more information, call the [place] Tobacco Quit Line at 4-801-FOWB-NOW. Certification: Further, I certify that my clinical findings support that this patient is homebound (i.e. absences from home require considerable and taxing effort and are for medical reasons or bahai services or infrequently or short duration when for other reasons) because: Attestation: My signature below is to certify that this patient is under my care and that I, or nurse practitioner, or a physician's phlebotomist lab assistant working with me, has a face-to -face encounter with this patient.
[2016-05-25] MEDS: Albumin 25% 25gram/100mL 25 GM/100 ML IV.SOLN IVC SCH ×4 (17:18→23:52)
[2016-05-26] MEDS: Ipratropium/Albuterol Neb 3 ML IH SCH
[2016-05-26 10:27] VITALS: BP 132/57
== END 2016-05-26 00:35 | disposition home health service (06) | DRG 871 ==
LOC: EMEROO 12:05 → 2NENU 12:05
PROVIDERS: ADMIT Internal Medicine; ATTEND Internal Medicine

== ENCOUNTER 2016-06-06 17:46 | Inpatient (IN) ==
[2016-06-06] MEDS ORDERED: 0.9 % Sodium Chloride 1,000 ML IVC ONE (17:49)
--- NOTE | 2016-06-06 17:51 | Emergency Department Note ---
Disposition Clinical Impression: Dehydration, CKD (chronic kidney disease) stage 3, GFR 30-59 ml/min Disposition: Still a Patient Condition: Good Referrals: Travis Deng Jr, MD [Non-Partnered Physician] - Forms: ED Satisfaction Letter General Adult HPI - General Chief complaint: ED Nausea/Vomiting/Diarrhea Stated complaint: Nausea/Vomiting Nursing Notes Reviewed: Yes Vital Signs Reviewed: Yes - History of Present Illness HPI Narrative: Female patient complaining of three-day history of nausea vomiting and diarrhea. She denies a fever. She states she also just feels tired and weak. She has had a one-week history of a cough with a yellow sputum. She denies any breath or chest pain. There are no alleviating or provoking factors. - Related Data Home Medications Medication Instructions Recorded Confirmed Cholecalciferol (Vitamin D3) 50,000 unit PO WESA 11/02/14 05/19/16 [Vitamin D3] Magnesium Oxide [Magnesium] 400 mg PO BID 11/02/14 05/19/16 Ipratropium/Albuterol Neb [Duoneb] 3 ml IH Q4HR PRN 04/26/15 05/19/16 Cyanocobalamin (Vitamin B-12) 1,000 mcg PO DAILY 09/03/15 05/19/16 [Vitamin B12] Zinc Sulfate 220 mg PO BID 09/03/15 05/19/16 Insulin DETEMIR [Levemir Flextouch] 26 unit SQ BID 10/07/15 05/19/16 Insulin LISPRO [Humalog Kwikpen 0 unit SQ ACHS 10/07/15 05/19/16 U-100] Lactulose 15 ml PO TID PRN 10/07/15 05/19/16 Levothyroxine [Synthroid] 100 mcg PO QAM 10/07/15 05/19/16 Acetaminophen with Codeine 1 tab PO Q6H PRN 12/22/15 05/19/16 [Acetaminophen-Cod #4 Tablet] Oxygen 2 l NS AD 12/22/15 05/19/16 Ondansetron ODT [Zofran ODT] 4 mg SL TID PRN 04/02/16 05/19/16 Ranitidine HCl 150 mg PO BID 04/02/16 05/19/16 Diclofenac Sodium 1 appl TP QID PRN 04/09/16 05/19/16 Midodrine HCl 2.5 mg PO TID 05/19/16 05/19/16 Previous Rx's Medication Instructions Recorded Aspirin 81 mg PO DAILY 30 Days 11/08/14 Rifaximin [Xifaxan] 550 mg PO BID #60 tablet 05/01/15 Pantoprazole Sodium [Protonix] 40 mg PO BID #60 tablet. 04/15/16 Sucralfate [Carafate] 1 gm PO QIDAC 30 Days 04/15/16 Linezolid [Zyvox] 600 mg PO BID #5 tablet 05/25/16 Allergies Allergy/AdvReac Type Severity Reaction Status Date / Time No Known Allergies Allergy Verified 06/29/15 16:22 All systems ED: reviewed and negative except as stated. Constitutional: Reports: weakness (3 days.). Denies: fever, chills Cardiovascular: Denies: chest pain, palpitations, dyspnea on exertion, syncope Respiratory: Reports: cough, sputum production (Yellow 1 week.). Denies: dyspnea, wheezes Gastrointestinal: Reports: nausea (3 days.), vomiting (3 days.), diarrhea (3 days.). Denies: abdominal pain Genitourinary: Denies: urgency, dysuria, frequency, hematuria Musculoskeletal: Denies: back pain, neck pain Integumentary: Denies: rash Neurological: Reports: weakness (Generalized for the past 3 days.). Denies: headache Past Medical History - Past Medical History Attestation: Yes The following information was validated with the patient. Medical history: Reports: arthritis, cirrhosis, COPD, dementia, diabetes, GERD, glaucoma, hepatitis, hyperlipidemia, hypertension, liver disease, osteoporosis, renal disease, thyroid disease Surgical history: Reports: herniorrhaphy Psychiatric history: Reports: no psych history [employer] history: Reports: non-contributory - Social History Smoking Status: Never smoker Smokeless Tobacco Status: No Alcohol use: Reports: none Drug use: Reports: none Physical Exam - General Limitations: no limitations General appearance: alert, other (Appears tired.) - Head Head exam: atraumatic, normocephalic, normal inspection - Eye Eye exam: Present: normal appearance, PERRL, EOMI. Absent: scleral icterus - ENT ENT exam: normal exam, normal oropharynx, mucous membranes dry (Pitting in patient's tongue.) - Neck Neck exam: Present: normal inspection, full ROM, trachea midline. Absent: tenderness - Chest Chest inspection: Present: normal inspection, symmetric chest wall rise. Absent : tenderness, rash - Respiratory Respiratory exam: Present: normal lung sounds bilaterally. Absent: respiratory distress, wheezes - Cardiovascular Cardiovascular exam: Present: regular rate, normal rhythm, normal heart sounds - Abdominal Exam Abdominal exam: Present: soft, Non-Tender, normal bowel sounds, other (Left lower quadrant hernia.). Absent: Armstrong's sign, Rovsing's sign, tenderness at McBurney's Point - Extremities Exam Extremities exam: Present: normal inspection, full ROM, normal capillary refill , other (Patient does have a small skin tear to the right elbow. States she bumped it today. Has full range of motion of this extremity. Bleeding is controlled with a 2 x 2.). Absent: tenderness, pedal edema - Back Exam Back exam: Present: normal inspection, full ROM. Absent: tenderness, CVA tenderness (R), CVA tenderness (L) - Neurological Exam Neurological exam: Present: alert, oriented X3 - Psychiatric Psychiatric exam: Present: normal affect, normal mood - Skin Skin exam: Present: warm, dry, normal color, other (Stage II pressure ulcer to coccyx.). Absent: rash Course Course Narrative: Female patient in no acute distress but does appear tired brought in by EMS for lethargy nausea vomiting and diarrhea 3 days. Patient states she is not nauseated at this time and denies any abdominal pain. Her abdomen is soft and nontender palpation. I do not appreciate a fluid wave. However patient does have a hernia to her left lower quadrant of her abdomen. Her bowel sounds are normal. She denies any shortness of breath or chest pain however does report a cough for a week with a yellow sputum. She denies any fevers or chills. She does state that she is tired. She denies any hematochezia or melena or hematemesis. She is on 2 L of oxygen at home. She is not febrile and not tachycardic while she is here. She is mentating appropriately. We will get a chest x-ray and basic lab workup. We will also give her fluids. Her mucous membranes are dry she has pitting to her tongue. She her skin turgor is poor. She does appear clinically dehydrated. - Reevaluation(s) Reevaluation #1: Patient's potassium is high. She does have new biphasic V1 and V6. We will give her calcium gluconate while she is here. Her BUN is also increased. She does have peritoneal dialysis every Wednesday and given albumin infusions done then. I anticipate admission. Time: 18:42 Vital Signs Temperature 98.0 F 06/06/16 17:47 Pulse Rate 80 06/06/16 17:47 Respiratory Rate 16 06/06/16 17:47 Blood Pressure 140/56 06/06/16 17:47 O2 Sat by Pulse Oximetry 99 06/06/16 17:47 Temperature 98.0 F 06/06/16 17:47 Pulse Rate 77 06/06/16 18:47 Respiratory Rate 16 06/06/16 18:47 Blood Pressure 130/51 06/06/16 18:47 O2 Sat by Pulse Oximetry 100 06/06/16 18:47 Oxygen Delivery Oxygen Delivery Nasal Cannula Medical Decision Making - Medical Records Medical records reviewed: Yes I reviewed the patient's medical records. - Lab Data Lab results reviewed: Yes I reviewed the patient's lab results. Result diagrams: 06/06/16 18:12 06/06/16 18:12 Lab Results 06/06/16 06/06/16 06/06/16 Range/Units 18:12 18:12 18:12 WBC 3.1 L (4.3-11.1) K/mcL RBC 2.15 L (3.82-4.97) M/mcL Hgb 6.2 L (11.5-15.4) g/dL Hct 19.4 L (35.3-44.9) % MCV 90.2 (83.0-100.0) fL MCH 28.8 (28.0-33.3) pg MCHC 32.0 (31.6-35.5) g/dL RDW 16.2 H (11.5-14.5) % Plt Count 25 L* (140-400) K/mcL MPV 13.0 H (9.4-12.4) fL Immature Gran % 0.7 (0-4) % Seg Neutrophils % 55.1 % Lymphocytes % 13.1 % Monocytes % 28.5 % Eosinophils % 2.3 % Basophils % 0.3 % Neutrophils # 1.7 (1.6-8.9) K/mcL Lymphocytes # 0.4 L (0.6-4.6) K/mcL Monocytes # 0.9 (0.0-1.3) K/mcL Eosinophils # 0.1 (0.0-0.6) K/mcL Basophils # 0.0 (0.0-0.2) K/mcL Platelet Estimate Marked Decrease L (Normal) Immature Plt Fraction 8.3 H (1.1-6.1) % Sodium 134 L (136-145) mEq/L Potassium 5.3 H (3.5-4.5) mEq/L Chloride 108 (98-109) mEq/L Carbon Dioxide 19 (19-29) mEq/L BUN 109 H (7-20) mg/dL Creatinine 3.21 H (0.57-1.11) mg/dL Est GFR ( Amer) 17 L (> 60) Est GFR (Non-Af Amer) 14 L (> 60) BUN/Creatinine Ratio 34 H (6-26) Glucose 256 H (70-99) mg/dL Calculated Osmolality 321 H (280-300) Calcium 8.9 (8.6-10.8) mg/dL Total Bilirubin 1.4 H (0.2-1.2) mg/dL AST 30 (5-34) Units/L ALT 16 (0-55) Units/L Alkaline Phosphatase 146 H (38-126) Units/L Troponin I 0.00 (0-0.03) ng/mL Serum Total Protein 5.9 L (6.0-8.3) g/dL Albumin 3.0 L (3.5-5.0) g/dL Globulin 2.9 (2.4-3.5) g/dL Albumin/Globulin Ratio 1.0 L (1.1-2.2) Lipase 21 (8-78) Units/L Urine Color (Yellow) Urine Clarity (Clear) Urine pH (5.0-8.0) pH Units Ur Specific [place] (1.010-1.025) Urine Protein (Neg-Trace) mg/dL Urine Glucose (UA) (Normal) mg/dL Urine Ketones (Negative) mg/dL Urine Blood (Negative) Urine Nitrite (Negative) Urine Bilirubin (Negative) Urine Urobilinogen (Normal) mg/dL Ur Leukocyte Esterase (Negative) 04/22/17 Range/Units 18:35 WBC (4.3-11.1) K/mcL RBC (3.82-4.97) M/mcL Hgb (11.5-15.4) g/dL Hct (35.3-44.9) % MCV (83.0-100.0) fL MCH (28.0-33.3) pg MCHC (31.6-35.5) g/dL RDW (11.5-14.5) % Plt Count (140-400) K/mcL MPV (9.4-12.4) fL Immature Gran % (0-4) % Seg Neutrophils % % Lymphocytes % % Monocytes % % Eosinophils % % Basophils % % Neutrophils # (1.6-8.9) K/mcL Lymphocytes # (0.6-4.6) K/mcL Monocytes # (0.0-1.3) K/mcL Eosinophils # (0.0-0.6) K/mcL Basophils # (0.0-0.2) K/mcL Platelet Estimate (Normal) Immature Plt Fraction (1.1-6.1) % Sodium (136-145) mEq/L Potassium (3.5-4.5) mEq/L Chloride (98-109) mEq/L Carbon Dioxide (19-29) mEq/L BUN (7-20) mg/dL Creatinine (0.57-1.11) mg/dL Est GFR ( Amer) (> 60) Est GFR (Non-Af Amer) (> 60) BUN/Creatinine Ratio (6-26) Glucose (70-99) mg/dL Calculated Osmolality (280-300) Calcium (8.6-10.8) mg/dL Total Bilirubin (0.2-1.2) mg/dL AST (5-34) Units/L ALT (0-55) Units/L Alkaline Phosphatase (38-126) Units/L Troponin I (0-0.03) ng/mL Serum Total Protein (6.0-8.3) g/dL Albumin (3.5-5.0) g/dL Globulin (2.4-3.5) g/dL Albumin/Globulin Ratio (1.1-2.2) Lipase (8-78) Units/L Urine Color Yellow (Yellow) Urine Clarity Clear (Clear) Urine pH 6.0 (5.0-8.0) pH Units Ur Specific [place] 1.010 (1.010-1.025) Urine Protein Negative (Neg-Trace) mg/dL Urine Glucose (UA) Normal (Normal) mg/dL Urine Ketones Negative (Negative) mg/dL Urine Blood Negative (Negative) Urine Nitrite Negative (Negative) Urine Bilirubin Negative (Negative) Urine Urobilinogen Normal (Normal) mg/dL Ur Leukocyte Esterase Trace H (Negative) - Radiology Data Radiology results reviewed: Yes I reviewed the patient's radiology results. - EKG Data EKG #1 EKG attestation: Yes I reviewed and interpreted this EKG. EKG results narrative: Sinus rhythm at a rate of 78. VT interval is 104. QRS duration is 112. QT is 409. QTC is 443. No ST elevation or depression. No significant changes from previous EKG dated 05/19/2016 however patient's V6 is now more biphasic than previously as is V1 S.B.AYakov - Kandi Background: Presenting Complaint (Pt complaining of lethargy and a cough that has a yellow sputum. Denies abdominal pain nausea or vomiting.), Relevant PMH, Meds, & Allergies (Peritoneal dialysis patient that receives dialysis and albumin every Wednesday.) Assessment: Course and respsone to treatment (A x-ray and lab work mostly pending.), Pertinant Lab Results (Hyperkalemic. Did receive calcium gluconate for a new biphasic V1 and V6. Denies chest pain. Increased BUN and creatinine. Greater than normal for her.) Recommendation: Recommendation based on pending studies, treatments, or consults (Most likely admission for hyperkalemia as well as increased BUN and creatinine.) S.B.A.R. Report Given to: Dr Janis Chau Repor Time: 18:45
--- NOTE | 2016-06-06 17:52 | Emergency Department Note ---
Disposition Clinical Impression: Dehydration, CKD (chronic kidney disease) stage 3, GFR 30-59 ml/min Disposition: Admitted As Inpatient Condition: Fair Referrals: Travis Deng Jr, MD [Primary Care Provider] - Forms: ED Satisfaction Letter General Adult HPI - General Chief complaint: ED Nausea/Vomiting/Diarrhea Stated complaint: Nausea/Vomiting Source: patient, EMS Limitations: no limitations Nursing Notes Reviewed: Yes Vital Signs Reviewed: Yes - History of Present Illness Pain Scale: 0 - Related Data Home Medications Medication Instructions Recorded Confirmed Cholecalciferol (Vitamin D3) 50,000 unit PO WESA 11/02/14 05/19/16 [Vitamin D3] Magnesium Oxide [Magnesium] 400 mg PO BID 11/02/14 05/19/16 Ipratropium/Albuterol Neb [Duoneb] 3 ml IH Q4HR PRN 04/26/15 05/19/16 Cyanocobalamin (Vitamin B-12) 1,000 mcg PO DAILY 09/03/15 05/19/16 [Vitamin B12] Zinc Sulfate 220 mg PO BID 09/03/15 05/19/16 Insulin DETEMIR [Levemir Flextouch] 26 unit SQ BID 10/07/15 05/19/16 Insulin LISPRO [Humalog Kwikpen 0 unit SQ ACHS 10/07/15 05/19/16 U-100] Lactulose 15 ml PO TID PRN 10/07/15 05/19/16 Levothyroxine [Synthroid] 100 mcg PO QAM 10/07/15 05/19/16 Acetaminophen with Codeine 1 tab PO Q6H PRN 12/22/15 05/19/16 [Acetaminophen-Cod #4 Tablet] Oxygen 2 l NS AD 12/22/15 05/19/16 Ondansetron ODT [Zofran ODT] 4 mg SL TID PRN 04/02/16 05/19/16 Ranitidine HCl 150 mg PO BID 04/02/16 05/19/16 Diclofenac Sodium 1 appl TP QID PRN 04/09/16 05/19/16 Midodrine HCl 2.5 mg PO TID 05/19/16 05/19/16 Previous Rx's Medication Instructions Recorded Aspirin 81 mg PO DAILY 30 Days 11/08/14 Rifaximin [Xifaxan] 550 mg PO BID #60 tablet 05/01/15 Pantoprazole Sodium [Protonix] 40 mg PO BID #60 tablet. 04/15/16 Sucralfate [Carafate] 1 gm PO QIDAC 30 Days 04/15/16 Linezolid [Zyvox] 600 mg PO BID #5 tablet 05/25/16 Allergies Allergy/AdvReac Type Severity Reaction Status Date / Time No Known Allergies Allergy Verified 06/29/15 16:22 Past Medical History - Past Medical History Medical history: Reports: arthritis, cirrhosis, COPD, dementia, diabetes, GERD, glaucoma, hepatitis, hyperlipidemia, hypertension, liver disease, osteoporosis, renal disease, thyroid disease Surgical history: Reports: herniorrhaphy Psychiatric history: Reports: no psych history [employer] history: Reports: non-contributory - Social History Smoking Status: Never smoker Smokeless Tobacco Status: No Alcohol use: Reports: none Drug use: Reports: none Physical Exam - General Limitations: no limitations General appearance: alert, in no apparent distress Course Vital Signs Temperature 98.0 F 06/06/16 17:47 Pulse Rate 80 06/06/16 17:47 Respiratory Rate 16 06/06/16 17:47 Blood Pressure 140/56 06/06/16 17:47 O2 Sat by Pulse Oximetry 99 06/06/16 17:47 Temperature 98.0 F 06/06/16 17:47 Pulse Rate 77 06/06/16 18:47 Respiratory Rate 16 06/06/16 18:47 Blood Pressure 130/51 06/06/16 18:47 O2 Sat by Pulse Oximetry 100 06/06/16 18:47 Oxygen Delivery Oxygen Delivery Nasal Cannula Medical Decision Making - MDM Narrative Medical decision making narrative: I examined this patient and my medical decision-making was reviewed with the CHORE TENDER/PA/Advanced Practice Nurse/Resident Physician. I agree with the documented findings, disposition and treatment plan as described except to the extent set forth below. Patient arrives by EMS and was seen on arrival by Dr. Nelson and myself, I agree with her evaluation and management plan, I supervised the care of the patient outstay. Patient presents with the past 2-3 days of nausea vomiting diarrhea dehydration. Denies any chest pain. She says she is not nauseous now. She does appear dry. She also has a contusion on her elbow and she has got very thin skin and she has had a laceration there which the medics did bandage. we will get labs on her hydrate her and reassess. She is in agreement with this plan. We will check on tetanus status also. 1830 hrs.: Patient does have a decubitus ulcer on her buttocks. Since that she has had this before it healed up it does not look infected just looks like certainly breakdown, one had brisk in pad over the area. Waiting on her labs. She said she probably need a straight catheter for urine as she does not make much urine which makes me wonder if she could be in renal failure at this time. She has peritoneal dialysis once a week. On Mondays. For labs to come back and then we will reassess. 1700 hrs.: Patient's labs are coming back she has thrombocytopenia which is chronic chronic renal insufficiency were going to hydrate her and bring her into the hospital for sinus case out to the evening your doctor Dr. walton. - Lab Data Result diagrams: 06/06/16 18:12 06/06/16 18:12 Lab Results 06/06/16 06/06/16 06/06/16 Range/Units 18:12 18:12 18:12 WBC 3.1 L (4.3-11.1) K/mcL RBC 2.15 L (3.82-4.97) M/mcL Hgb 6.2 L (11.5-15.4) g/dL Hct 19.4 L (35.3-44.9) % MCV 90.2 (83.0-100.0) fL MCH 28.8 (28.0-33.3) pg MCHC 32.0 (31.6-35.5) g/dL RDW 16.2 H (11.5-14.5) % Plt Count 25 L* (140-400) K/mcL MPV 13.0 H (9.4-12.4) fL Immature Gran % 0.7 (0-4) % Seg Neutrophils % 55.1 % Lymphocytes % 13.1 % Monocytes % 28.5 % Eosinophils % 2.3 % Basophils % 0.3 % Neutrophils # 1.7 (1.6-8.9) K/mcL Lymphocytes # 0.4 L (0.6-4.6) K/mcL Monocytes # 0.9 (0.0-1.3) K/mcL Eosinophils # 0.1 (0.0-0.6) K/mcL Basophils # 0.0 (0.0-0.2) K/mcL Platelet Estimate Marked Decrease L (Normal) Immature Plt Fraction 8.3 H (1.1-6.1) % Sodium 134 L (136-145) mEq/L Potassium 5.3 H (3.5-4.5) mEq/L Chloride 108 (98-109) mEq/L Carbon Dioxide 19 (19-29) mEq/L BUN 109 H (7-20) mg/dL Creatinine 3.21 H (0.57-1.11) mg/dL Est GFR ( Amer) 17 L (> 60) Est GFR (Non-Af Amer) 14 L (> 60) BUN/Creatinine Ratio 34 H (6-26) Glucose 256 H (70-99) mg/dL Calculated Osmolality 321 H (280-300) Calcium 8.9 (8.6-10.8) mg/dL Total Bilirubin 1.4 H (0.2-1.2) mg/dL AST 30 (5-34) Units/L ALT 16 (0-55) Units/L Alkaline Phosphatase 146 H (38-126) Units/L Troponin I 0.00 (0-0.03) ng/mL Serum Total Protein 5.9 L (6.0-8.3) g/dL Albumin 3.0 L (3.5-5.0) g/dL Globulin 2.9 (2.4-3.5) g/dL Albumin/Globulin Ratio 1.0 L (1.1-2.2) Lipase 21 (8-78) Units/L Urine Color (Yellow) Urine Clarity (Clear) Urine pH (5.0-8.0) pH Units Ur Specific [place] (1.010-1.025) Urine Protein (Neg-Trace) mg/dL Urine Glucose (UA) (Normal) mg/dL Urine Ketones (Negative) mg/dL Urine Blood (Negative) Urine Nitrite (Negative) Urine Bilirubin (Negative) Urine Urobilinogen (Normal) mg/dL Ur Leukocyte Esterase (Negative) 06/06/16 Range/Units 18:35 WBC (4.3-11.1) K/mcL RBC (3.82-4.97) M/mcL Hgb (11.5-15.4) g/dL Hct (35.3-44.9) % MCV (83.0-100.0) fL MCH (28.0-33.3) pg MCHC (31.6-35.5) g/dL RDW (11.5-14.5) % Plt Count (140-400) K/mcL MPV (9.4-12.4) fL Immature Gran % (0-4) % Seg Neutrophils % % Lymphocytes % % Monocytes % % Eosinophils % % Basophils % % Neutrophils # (1.6-8.9) K/mcL Lymphocytes # (0.6-4.6) K/mcL Monocytes # (0.0-1.3) K/mcL Eosinophils # (0.0-0.6) K/mcL Basophils # (0.0-0.2) K/mcL Platelet Estimate (Normal) Immature Plt Fraction (1.1-6.1) % Sodium (136-145) mEq/L Potassium (3.5-4.5) mEq/L Chloride (98-109) mEq/L Carbon Dioxide (19-29) mEq/L BUN (7-20) mg/dL Creatinine (0.57-1.11) mg/dL Est GFR ( Amer) (> 60) Est GFR (Non-Af Amer) (> 60) BUN/Creatinine Ratio (6-26) Glucose (70-99) mg/dL Calculated Osmolality (280-300) Calcium (8.6-10.8) mg/dL Total Bilirubin (0.2-1.2) mg/dL AST (5-34) Units/L ALT (0-55) Units/L Alkaline Phosphatase (38-126) Units/L Troponin I (0-0.03) ng/mL Serum Total Protein (6.0-8.3) g/dL Albumin (3.5-5.0) g/dL Globulin (2.4-3.5) g/dL Albumin/Globulin Ratio (1.1-2.2) Lipase (8-78) Units/L Urine Color Yellow (Yellow) Urine Clarity Clear (Clear) Urine pH 6.0 (5.0-8.0) pH Units Ur Specific [place] 1.010 (1.010-1.025) Urine Protein Negative (Neg-Trace) mg/dL Urine Glucose (UA) Normal (Normal) mg/dL Urine Ketones Negative (Negative) mg/dL Urine Blood Negative (Negative) Urine Nitrite Negative (Negative) Urine Bilirubin Negative (Negative) Urine Urobilinogen Normal (Normal) mg/dL Ur Leukocyte Esterase Trace H (Negative)
[2016-06-06 18:20] LABS: Basophils % 0.3 %; Red Cell Distribution Width 16.2 % (11.5-14.5)
[2016-06-06 18:22] LABS: Eosinophils # 0.1 K/mcL (0.0-0.6); Eosinophils % 2.3 %; Hematocrit 19.4 % (35.3-44.9); Hemoglobin 6.2 g/dL (11.5-15.4); Immature Granulocytes % 0.7 % (0-4); Immature Platelets 8.3 % (1.1-6.1); Lymphocytes # 0.4 K/mcL (0.6-4.6); Lymphocytes % 13.1 %; Mean Corpuscular Hemoglobin 28.8 pg (28.0-33.3); Mean Corpuscular Volume 90.2 fL (83.0-100.0); Monocytes # 0.9 K/mcL (0.0-1.3); Monocytes % 28.5 %; Neutrophils # 1.7 K/mcL (1.6-8.9); Red Blood Count 2.15 M/mcL (3.82-4.97); Segmented Neutrophils % 55.1 %
[2016-06-06] MEDS ORDERED: Td (TENIVAC) Vaccine 0.5 ML VIAL IM ONE (18:33)
[2016-06-06 18:34] LABS: Bilirubin,Total 1.4 mg/dL (0.2-1.2); Calcium 8.9 mg/dL (8.6-10.8); Globulin 2.9 g/dL (2.4-3.5); Potassium 5.3 mEq/L (3.5-4.5); Total Protein 5.9 g/dL (6.0-8.3)
[2016-06-06] MEDS ORDERED: Calcium Gluconate 1,000 MG in D5% in Water 100 ML IVPB ONE (18:41)
[2016-06-06 18:48] LABS: Bilirubin,Urine Negative (Negative); Blood,Urine Negative (Negative); Clarity,Urine Clear (Clear); Color,Urine Yellow (Yellow); Glucose,Urine (UA) Normal (Normal); Ketones,Urine Negative (Negative); Leukocyte Esterase,Urine Trace (Negative); Nitrite,Urine Negative (Negative); Protein,Urine Negative (Neg-Trace); Urobilinogen,Urine Normal (Normal)
[2016-06-06 18:49] LABS: Platelet Count 25 K/mcL (140-400)
[2016-06-06 18:50] LABS: Platelet Estimate Marked Decrease (Normal)
[2016-06-06 19:00] LABS: Bacteria,Urine Many per hpf (None-Few); Hyaline Casts,Urine Few per lpf (None-Few); RBC,Urine 0-3 per hpf (0-3); Squamous Epithelial Cell,Urine Few per lpf (None-Few)
[2016-06-06] MEDS ORDERED: Pantoprazole 40 MG VIAL IVP ONE (19:13)
--- NOTE | 2016-06-06 19:19 | Emergency Department Note ---
Disposition Clinical Impression: Dehydration Anemia Qualifiers: Anemia type: unspecified type Qualified Code(s): D64.9 - Anemia, unspecified GI bleed Qualifiers: Gastritis type: unspecified gastritis CKD (chronic kidney disease) Qualifiers: Chronic kidney disease stage: stage 3 (moderate) Qualified Code(s): N18.3 - Chronic kidney disease, stage 3 (moderate) Disposition: Admitted As Inpatient Condition: Fair General Adult HPI - General Chief complaint: ED Nausea/Vomiting/Diarrhea Stated complaint: Nausea/Vomiting Source: patient, EMS Mode of arrival: ambulatory Limitations: no limitations Nursing Notes Reviewed: Yes Vital Signs Reviewed: Yes - History of Present Illness HPI Narrative: The patient was seen and examined. This is a continuation of prior documentation and charting by Dr. Nelson. Patient presents with dark tarry stools for the past 3 days, weakness, nausea and vomiting that began yesterday. Noted to be orange emesis. Pain Scale: 0 - Related Data Home Medications Medication Instructions Recorded Confirmed Cholecalciferol (Vitamin D3) 50,000 unit PO WESA 11/02/14 05/19/16 [Vitamin D3] Magnesium Oxide [Magnesium] 400 mg PO BID 11/02/14 05/19/16 Ipratropium/Albuterol Neb [Duoneb] 3 ml IH Q4HR PRN 04/26/15 05/19/16 Cyanocobalamin (Vitamin B-12) 1,000 mcg PO DAILY 09/03/15 05/19/16 [Vitamin B12] Zinc Sulfate 220 mg PO BID 09/03/15 05/19/16 Insulin DETEMIR [Levemir Flextouch] 26 unit SQ BID 10/07/15 05/19/16 Insulin LISPRO [Humalog Kwikpen 0 unit SQ ACHS 10/07/15 05/19/16 U-100] Lactulose 15 ml PO TID PRN 10/07/15 05/19/16 Levothyroxine [Synthroid] 100 mcg PO QAM 10/07/15 05/19/16 Acetaminophen with Codeine 1 tab PO Q6H PRN 12/22/15 05/19/16 [Acetaminophen-Cod #4 Tablet] Oxygen 2 l NS AD 12/22/15 05/19/16 Ondansetron ODT [Zofran ODT] 4 mg SL TID PRN 04/02/16 05/19/16 Ranitidine HCl 150 mg PO BID 04/02/16 05/19/16 Diclofenac Sodium 1 appl TP QID PRN 04/09/16 05/19/16 Midodrine HCl 2.5 mg PO TID 05/19/16 05/19/16 Previous Rx's Medication Instructions Recorded Aspirin 81 mg PO DAILY 30 Days 11/08/14 Rifaximin [Xifaxan] 550 mg PO BID #60 tablet 05/01/15 Pantoprazole Sodium [Protonix] 40 mg PO BID #60 tablet. 04/15/16 Sucralfate [Carafate] 1 gm PO QIDAC 30 Days 04/15/16 Linezolid [Zyvox] 600 mg PO BID #5 tablet 05/25/16 Allergies Allergy/AdvReac Type Severity Reaction Status Date / Time No Known Allergies Allergy Verified 06/29/15 16:22 Constitutional: Reports: weakness (3 days.). Denies: fever, chills Cardiovascular: Denies: chest pain, palpitations, dyspnea on exertion, syncope Respiratory: Reports: cough, sputum production (Yellow 1 week.). Denies: dyspnea, wheezes Gastrointestinal: Reports: nausea (3 days.), vomiting (3 days.), diarrhea (3 days.). Denies: abdominal pain Genitourinary: Denies: urgency, dysuria, frequency, hematuria Musculoskeletal: Denies: back pain, neck pain Integumentary: Denies: rash Neurological: Reports: weakness (Generalized for the past 3 days.). 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 Absent: respiratory distress - Abdominal Exam Abdominal exam: Present: soft, Non-Tender, distention, ascites. Absent: guarding, rebound - Rectal Exam Residential Electrician present during exam: Yes Rectal exam: Present: normal inspection, heme (+) stool. Absent: bloody stool, hemorrhoids - Neurological Exam Neurological exam: Present: alert - Skin Skin exam: Present: warm, dry, intact, normal color Course Course Narrative: Patient seen and examined upon arrival to the emergency department. Patient presents with some nonbloody emesis as well as dark tarry stools for the past 3 days. Patient does have a history of liver cirrhosis which was attributed to her diabetes medicines. Patient was scoped in the past per the family at bedside by Dr. Cespedes and had an ulcer and had banding done in the past. Most recent scope was in March of this year. Patient's hemodynamically stable patient's hemoglobin was 6.2. Patient transfused 2 units of PRBCs. Patient also was started on Protonix and octreotide. - Reevaluation(s) Reevaluation #1: Patient is now accepted by the hospitalist. Patient receiving 2 PRBCs and platelets. Patient resting comfortably. No acute distress. Time: 22:52 - Consultations Consultation #1: Spoke with Dr. Cespedes, recommends protonix, octreotide, and re-evaluation. Time: 19:41 Consultation #2: Spoke with nephrology, Dr. Moss and made aware that the patient will be admitted for worsening CKD and anemia/GI bleed. Time: 20:46 Consultation #3: Spoke with hospitalist who wants to evaluate patient prior to acceptance. Explained that both Dr. Cespedes and Dr. Macedo is aware. Time: 21:10 Vital Signs Temperature 98.0 F 06/06/16 17:47 Pulse Rate 80 06/06/16 17:47 Respiratory Rate 16 06/06/16 17:47 Blood Pressure 140/56 06/06/16 17:47 O2 Sat by Pulse Oximetry 99 06/06/16 17:47 Temperature 97.9 F 06/06/16 23:33 Pulse Rate 71 06/06/16 23:33 Respiratory Rate 20 06/06/16 23:59 Blood Pressure 145/85 06/06/16 23:59 O2 Sat by Pulse Oximetry 100 06/06/16 23:30 Oxygen Delivery Oxygen Delivery Room Air Medical Decision Making - MDM Narrative Medical decision making narrative: Patient with a significant history of liver cirrhosis getting weekly paracentesis for evaluation of generalized weakness nausea and dark tarry stools. Patient's been scoped back in March this year was told to have an ulcer. Patient follows with Dr. Cespedes. Spoke with Dr. Cespedes, regarding this patient. Recommended resuscitation with blood, Protonix, octreotide. Patient will be evaluated on the floor. No emergent scope needed at this time. Patient also saw Dr. Espinoza for her CK D. Patient's CKD is worsened but states she still produces urine. Patient's BUN and is also increased. Patient possibly has an upper GI bleed with elevated BUNs on top of her CK D. Patient' s mental status is normal at baseline. Patient will be admitted to the hospitalist service for monitoring of her CKD, resuscitation with blood products , evaluation by GI as well as nephrology. Spoke with GI and Nephrology and made aware the patient will be admitted. The patient as well as patient's family are made aware of the plan of care. Initially the hospitalist was concerned about the availability of GI if the patient has an esophageal varices. Hospitalist did accept the patient after interviewing the patient. Patient will be admitted to the stepdown unit for close monitoring. - Lab Data Lab results reviewed: Yes I reviewed the patient's lab results. Result diagrams: 06/06/16 18:12 06/06/16 18:12 Lab Results 06/06/16 06/06/16 06/06/16 Range/Units 18:12 18:12 18:12 WBC 3.1 L (4.3-11.1) K/mcL RBC 2.15 L (3.82-4.97) M/mcL Hgb 6.2 L (11.5-15.4) g/dL Hct 19.4 L (35.3-44.9) % MCV 90.2 (83.0-100.0) fL MCH 28.8 (28.0-33.3) pg MCHC 32.0 (31.6-35.5) g/dL RDW 16.2 H (11.5-14.5) % Plt Count 25 L* (140-400) K/mcL MPV 13.0 H (9.4-12.4) fL Immature Gran % 0.7 (0-4) % Seg Neutrophils % 55.1 % Lymphocytes % 13.1 % Monocytes % 28.5 % Eosinophils % 2.3 % Basophils % 0.3 % Neutrophils # 1.7 (1.6-8.9) K/mcL Lymphocytes # 0.4 L (0.6-4.6) K/mcL Monocytes # 0.9 (0.0-1.3) K/mcL Eosinophils # 0.1 (0.0-0.6) K/mcL Basophils # 0.0 (0.0-0.2) K/mcL Platelet Estimate Marked Decrease L (Normal) Immature Plt Fraction 8.3 H (1.1-6.1) % PT (9.4-12.1) Seconds INR Sodium 134 L (136-145) mEq/L Potassium 5.3 H (3.5-4.5) mEq/L Chloride 108 (98-109) mEq/L Carbon Dioxide 19 (19-29) mEq/L BUN 109 H (7-20) mg/dL Creatinine 3.21 H (0.57-1.11) mg/dL Est GFR ( Amer) 17 L (> 60) Est GFR (Non-Af Amer) 14 L (> 60) BUN/Creatinine Ratio 34 H (6-26) Glucose 256 H (70-99) mg/dL Calculated Osmolality 321 H (280-300) Calcium 8.9 (8.6-10.8) mg/dL Total Bilirubin 1.4 H (0.2-1.2) mg/dL AST 30 (5-34) Units/L ALT 16 (0-55) Units/L Alkaline Phosphatase 146 H (38-126) Units/L Ammonia (18-72) mcmol/L Troponin I 0.00 (0-0.03) ng/mL Serum Total Protein 5.9 L (6.0-8.3) g/dL Albumin 3.0 L (3.5-5.0) g/dL Globulin 2.9 (2.4-3.5) g/dL Albumin/Globulin Ratio 1.0 L (1.1-2.2) Lipase 21 (8-78) Units/L Urine Color (Yellow) Urine Clarity (Clear) Urine pH (5.0-8.0) pH Units Ur Specific [place] (1.010-1.025) Urine Protein (Neg-Trace) mg/dL Urine Glucose (UA) (Normal) mg/dL Urine Ketones (Negative) mg/dL Urine Blood (Negative) Urine Nitrite (Negative) Urine Bilirubin (Negative) Urine Urobilinogen (Normal) mg/dL Ur Leukocyte Esterase (Negative) Urine Microscopic RBC (0-3) per hpf Urine Microscopic WBC (0-3) per hpf Ur Squamous Epith Cells (None-Few) per lpf Urine Bacteria (None-Few) per hpf Hyaline Casts (None-Few) per lpf Ur Culture Indicated? (NO) Stool Occult Blood (Negative) Blood Type Antibody Screen Crossmatch 06/06/16 06/06/16 06/06/16 Range/Units 18:12 18:35 19:12 WBC (4.3-11.1) K/mcL RBC (3.82-4.97) M/mcL Hgb (11.5-15.4) g/dL Hct (35.3-44.9) % MCV (83.0-100.0) fL MCH (28.0-33.3) pg MCHC (31.6-35.5) g/dL RDW (11.5-14.5) % Plt Count (140-400) K/mcL MPV (9.4-12.4) fL Immature Gran % (0-4) % Seg Neutrophils % % Lymphocytes % % Monocytes % % Eosinophils % % Basophils % % Neutrophils # (1.6-8.9) K/mcL Lymphocytes # (0.6-4.6) K/mcL Monocytes # (0.0-1.3) K/mcL Eosinophils # (0.0-0.6) K/mcL Basophils # (0.0-0.2) K/mcL Platelet Estimate (Normal) Immature Plt Fraction (1.1-6.1) % PT 13.8 H (9.4-12.1) Seconds INR 1.3 Sodium (136-145) mEq/L Potassium (3.5-4.5) mEq/L Chloride (98-109) mEq/L Carbon Dioxide (19-29) mEq/L BUN (7-20) mg/dL Creatinine (0.57-1.11) mg/dL Est GFR ( Amer) (> 60) Est GFR (Non-Af Amer) (> 60) BUN/Creatinine Ratio (6-26) Glucose (70-99) mg/dL Calculated Osmolality (280-300) Calcium (8.6-10.8) mg/dL Total Bilirubin (0.2-1.2) mg/dL AST (5-34) Units/L ALT (0-55) Units/L Alkaline Phosphatase (38-126) Units/L Ammonia (18-72) mcmol/L Troponin I (0-0.03) ng/mL Serum Total Protein (6.0-8.3) g/dL Albumin (3.5-5.0) g/dL Globulin (2.4-3.5) g/dL Albumin/Globulin Ratio (1.1-2.2) Lipase (8-78) Units/L Urine Color Yellow (Yellow) Urine Clarity Clear (Clear) Urine pH 6.0 (5.0-8.0) pH Units Ur Specific [place] 1.010 (1.010-1.025) Urine Protein Negative (Neg-Trace) mg/dL Urine Glucose (UA) Normal (Normal) mg/dL Urine Ketones Negative (Negative) mg/dL Urine Blood Negative (Negative) Urine Nitrite Negative (Negative) Urine Bilirubin Negative (Negative) Urine Urobilinogen Normal (Normal) mg/dL Ur Leukocyte Esterase Trace H (Negative) Urine Microscopic RBC 0-3 (0-3) per hpf Urine Microscopic WBC 3-5 H (0-3) per hpf Ur Squamous Epith Cells Few (None-Few) per lpf Urine Bacteria Many H (None-Few) per hpf Hyaline Casts Few (None-Few) per lpf Ur Culture Indicated? YES A (NO) Stool Occult Blood (Negative) Blood Type O POSITIVE Antibody Screen NEGATIVE Crossmatch See Detail 06/06/16 06/06/16 Range/Units 19:12 19:25 WBC (4.3-11.1) K/mcL RBC (3.82-4.97) M/mcL Hgb (11.5-15.4) g/dL Hct (35.3-44.9) % MCV (83.0-100.0) fL MCH (28.0-33.3) pg MCHC (31.6-35.5) g/dL RDW (11.5-14.5) % Plt Count (140-400) K/mcL MPV (9.4-12.4) fL Immature Gran % (0-4) % Seg Neutrophils % % Lymphocytes % % Monocytes % % Eosinophils % % Basophils % % Neutrophils # (1.6-8.9) K/mcL Lymphocytes # (0.6-4.6) K/mcL Monocytes # (0.0-1.3) K/mcL Eosinophils # (0.0-0.6) K/mcL Basophils # (0.0-0.2) K/mcL Platelet Estimate (Normal) Immature Plt Fraction (1.1-6.1) % PT (9.4-12.1) Seconds INR Sodium (136-145) mEq/L Potassium (3.5-4.5) mEq/L Chloride (98-109) mEq/L Carbon Dioxide (19-29) mEq/L BUN (7-20) mg/dL Creatinine (0.57-1.11) mg/dL Est GFR ( Amer) (> 60) Est GFR (Non-Af Amer) (> 60) BUN/Creatinine Ratio (6-26) Glucose (70-99) mg/dL Calculated Osmolality (280-300) Calcium (8.6-10.8) mg/dL Total Bilirubin (0.2-1.2) mg/dL AST (5-34) Units/L ALT (0-55) Units/L Alkaline Phosphatase (38-126) Units/L Ammonia 36 (18-72) mcmol/L Troponin I (0-0.03) ng/mL Serum Total Protein (6.0-8.3) g/dL Albumin (3.5-5.0) g/dL Globulin (2.4-3.5) g/dL Albumin/Globulin Ratio (1.1-2.2) Lipase (8-78) Units/L Urine Color (Yellow) Urine Clarity (Clear) Urine pH (5.0-8.0) pH Units Ur Specific [place] (1.010-1.025) Urine Protein (Neg-Trace) mg/dL Urine Glucose (UA) (Normal) mg/dL Urine Ketones (Negative) mg/dL Urine Blood (Negative) Urine Nitrite (Negative) Urine Bilirubin (Negative) Urine Urobilinogen (Normal) mg/dL Ur Leukocyte Esterase (Negative) Urine Microscopic RBC (0-3) per hpf Urine Microscopic WBC (0-3) per hpf Ur Squamous Epith Cells (None-Few) per lpf Urine Bacteria (None-Few) per hpf Hyaline Casts (None-Few) per lpf Ur Culture Indicated? (NO) Stool Occult Blood Positive A (Negative) Blood Type Antibody Screen Crossmatch - Radiology Data Radiology results reviewed: Yes I reviewed the patient's radiology results. Chest X-Ray 06/06/16 17:49 IMPRESSION: 1. Stable chest x-ray with right basilar atelectasis. D/ / Erasmo Cole MD / Erasmo Cole MD Interpreting Provider: Erasmo Cole MD arlos - Kandi Situation: Demographics Background: Presenting Complaint Assessment: Vital Signs, Course and respsone to treatment, Exam Concerns, Pertinant Lab Results Recommendation: Barrier(s) to disposition, Recommendation based on pending studies, treatments, or consults [email or web address] Report Given to: HOSPITALIST Kandi Repor Time: 21:10 Attestation Statement - Attestation Attestation: I examined this patient and my medical decision-making was reviewed with the TAKE OUT WAITER/WAITRESS/PA/Advanced Practice Nurse/Resident Physician. I agree with the documented findings, disposition and treatment plan as described except to the extent set forth below. Patient signed out pending admission. Patient uremic. Possible GI bleed. Has been discussed with GI and nephrology. Patient finally except to the hospitalist service. Awaiting bed placement at this time. 30 minutes of critical care exclusive of separately billable procedures.
[2016-06-06 19:37] LABS: INR 1.3; Prothrombin Time 13.8 Seconds (9.4-12.1)
[2016-06-06] MEDS ORDERED: Octreotide 50 MCG/ML SYRINGE IVP ONE (19:41)
[2016-06-06] MEDS ORDERED: Ondansetron 4 MG/2 ML VIAL IVP ONE (20:33)
[2016-06-06] MEDS ORDERED: 0.9 % Sodium Chloride 250 ML ONE (20:40)
[2016-06-06] MEDS ORDERED: Naloxone 0.4 MG/ML INJ IVP PRN (22:49)
--- NOTE | 2016-06-06 23:02 | Internal Med History&Physical ---
Date of Encounter: 06/06/16 Time of Encounter: 22:00 Assessment and Plan (1) Upper GI bleed Current visit: Yes Status: Acute Patient has 3 day history of melena and hematemesis. Suspect peptic ulcer disease/portal hypertensive gastropathy/variceal bleed versus esophagitis versus MW tears. He has physician discussed with the Supervisor Car [employer] Dr Styles , who recommended the pantoprazole and octreotide infusions; pt is OK to stay in this hospital and DR Styles will evaluate her on 06/08/16. (2) Acute blood loss anemia Current visit: Yes Status: Acute Activity to upper GI bleed. Hemoglobin 12 days ago was 9.8. She has significant drop in H&H. Transfuse her 2 units of PRBC. Monitor hemoglobin and hematocrit. (3) Hyperkalemia Current visit: Yes Status: Acute Likely secondary to CKD. Treat with calcium gluconate and bicarbonate (4) UTI (urinary tract infection) Current visit: Yes Status: Acute Urine cultures pending. Treat her with ceftriaxone. Qualifiers: Urinary tract infection type: site unspecified Hematuria presence: without hematuria Qualified Code(s): N39.0 - Urinary tract infection, site not specified (5) Thrombocytopenia Current visit: Yes Status: Chronic In view of acute GI bleed, will transfuse her platelets. (6) Leucopenia Current visit: Yes Status: Chronic Possibly due to chronic liver disease Qualifiers: Leukopenia type: unspecified Qualified Code(s): D72.819 - Decreased white blood cell count, unspecified (7) Cirrhosis Current visit: Yes Status: Chronic Patient has ascites. Patient is started on ceftriaxone to prevent SBP Qualifiers: Hepatic cirrhosis type: alcoholic cirrhosis Ascites presence: with ascites Qualified Code(s): K70.31 - Alcoholic cirrhosis of liver with ascites (8) Chronic respiratory failure Current visit: Yes Status: Chronic Continue Oxygen Qualifiers: Respiratory failure complication: hypoxia Qualified Code(s): J96.11 - Chronic respiratory failure with hypoxia (9) Obesity (BMI 30.0-34.9) Current visit: Yes Status: Chronic Supportive care (10) CKD (chronic kidney disease) stage 4, GFR 15-29 ml/min Current visit: Yes Status: Acute Pt has acute on CKD. Pt is receiving volume with blood transfusion (11) Acute on chronic renal failure Current visit: Yes Status: Acute Prostate volume depletion. Pt on blood transfusion (12) DVT prophylaxis Current visit: No Status: Acute Internal Medicine - H&P: HPI Chief complaint: Melena Admitted From: Emergency Dept Plans for Post Hospital Care: Home History of present illness: Ms. Flores is a 76 year old female with h/o cirrhosis of liver, esophageal varices, COPD, dementia, diabetes, hyperlipidemia, hypertension, CKD. pancytopenia. She presents to the emergency department with history of black stools for 3 days, feels tired and weak. Reports some episodes of vomiting since yesterday. She had 2 episodes of coffee-ground vomit today. She denies abdominal pain, dysuria. She has ascites and chronic abdominal distention s/p multiple paracentesis. She denies chest pain, shortness of breath, cough, expectation, fever, chills. She was evaluated in the emergency department and was noted to have positive fecal occult blood and hemoglobin of 6.2; hematocrit 19.4 platelets 25. ER physician discussed with gastroenteritis Dr. Styles, who recommended to start octreotide and pantoprazole infusions. Patient is okay to stay in this hospital. Patients son is at the bedside and confirms CODE STATUS DNR-CCA. She can be intubated, if she has encephalopathy / respiratory problems. Past Med Surg Social Fam HX - Past Medical History Medical history: arthritis, cirrhosis, COPD, dementia, diabetes, GERD, glaucoma , hepatitis, hyperlipidemia, hypertension, liver disease, osteoporosis, renal disease, thyroid disease Psychiatric history: no psych history - Past Surgical History Surgical History: herniorrhaphy - Social History Smoking Status: Never smoker Smokeless Tobacco Status: No Alcohol use: none Drug use: none - Family History Sister Adopted: No Living Status: Hx Family Cardiac Disorders: Yes Hx Family Respiratory Disorders: Yes Hx Family Cancer: Yes Hx Family GI Disorders: Yes (cirrhosis) Hx Family Endocrine Disorder: No Hx Family Neuromuscular Disorders: No Hx Family Neurologic Disorders: No Hx Family HEENT Disorders: No Hx Family Autoimmune Disorders: No Mother Adopted: No Family Member Ethnicity: Non- Living Status: Hx Family Cardiac Disorders: Yes Father Hx Family Cardiac Disorders: Yes (MYOCARDIAL INFARCTION.) Son Adopted: No Family Member Ethnicity: Non- Living Status: Still Living Hx Family Cardiac Disorders: Yes (HTN) Hx Family Respiratory Disorders: No Hx Family Cancer: No Hx Family GI Disorders: No Hx Family Endocrine Disorder: No Hx Family Neuromuscular Disorders: No Hx Family Neurologic Disorders: No Hx Family HEENT Disorders: No Hx Family Autoimmune Disorders: No Internal Medicine - H&P: Meds Cholecalciferol (Vitamin D3) [Vitamin D3] 50,000 unit PO WESA 11/02/14 [History] Magnesium Oxide [Magnesium] 400 mg PO BID 11/02/14 [History] Aspirin 81 mg PO DAILY 30 Days 11/08/14 [Rx] Ipratropium/Albuterol Neb [Duoneb] 3 ml IH Q4HR PRN 04/26/15 [History] Rifaximin [Xifaxan] 550 mg PO BID #60 tablet 05/01/15 [Rx] Cyanocobalamin (Vitamin B-12) [Vitamin B12] 1,000 mcg PO 2XW 09/03/15 [History] Zinc Sulfate 220 mg PO BID 09/03/15 [History] Insulin DETEMIR [Levemir Flextouch] 26 unit SQ BID 10/07/15 [History] Insulin LISPRO [Humalog Kwikpen U-100] 0 unit SQ ACHS 10/07/15 [History] Lactulose 15 ml PO TID PRN 10/07/15 [History] Levothyroxine [Synthroid] 100 mcg PO QAM 10/07/15 [History] Acetaminophen with Codeine [Acetaminophen-Cod #4 Tablet] 1 tab PO Q6H PRN [History] Oxygen 2 l NS AD 12/22/15 [History] Ondansetron ODT [Zofran ODT] 4 mg SL TID PRN 04/02/16 [History] Ranitidine HCl 150 mg PO BID 04/02/16 [History] Diclofenac Sodium 1 appl TP QID PRN 04/09/16 [History] Pantoprazole Sodium [Protonix] 40 mg PO BID #60 tablet. 04/15/16 [Rx] Sucralfate [Carafate] 1 gm PO QIDAC 30 Days 04/15/16 [Rx] Midodrine HCl 2.5 mg PO TID 05/19/16 [History] Linezolid [Zyvox] 600 mg PO BID #5 tablet 05/25/16 [Rx] Allergies No Known Allergies Allergy (Verified 06/29/15 16:22) All Systems PM: A 10-system review of systems was performed and is negative for pertinent findings except as documented above in the HPI. - Constitutional Vitals: Temp Pulse Resp BP Pulse Ox 97.9 F 75 20 145/85 100 06/06/16 21:10 06/06/16 22:15 06/06/16 22:43 06/06/16 22:43 06/06/16 22:15 Exam: General: Not in acute distress at the time of my evaluation HEENT: Oral mucosa is dry. Conjunctival palor present. No scleral icterus Neck: No obvious neck swellings Lungs: Few basal crackles in the left base Cardiac: Regular rate and rhythm. Systolic murmur present Abdomen: Distended; ventral abdominal hernia present, which is reducible, nontender. Bowel sounds present Genitourinary: No caceres catheter Neurological: Alert and oriented. No gross localizing deficits. No overt signs of hypertensive nephropathy Psych: Not aggressive or agitated Extremities: no significant leg edema Skin: No generalized rash Internal Med - H&P Results - Labs CBC & Chem 7: 06/07/16 11:20 06/07/16 11:20 - EKG Data -: EKG Interpreted by Myself - EKG Data EKG comments: Shows ectopic atrial rhythm and IVCD 06/07/16 22:52 - Impressions ITS Impressions Chest X-Ray 06/06/16 17:49 IMPRESSION: 1. Stable chest x-ray with right basilar atelectasis. D/ / Erasmo Cole MD / Erasmo Cole MD Interpreting Provider: Erasmo Cole MD
[2016-06-06] MEDS ORDERED: *HR* Dextrose 50 % in Water (Syg) 50 ML SYRINGE IVP PRN (23:04)
[2016-06-06] MEDS ORDERED: Dextrose Gel 15 GM PO PRN ×2 (23:04)
[2016-06-06] MEDS ORDERED: D5% in Water 1,000 ML IVC PRN (23:04)
[2016-06-07] MEDS: Pantoprazole 40 MG in 0.9 % Sodium Chloride Mini Bag 100 ML IVC SCH (09:15)
[2016-06-07 11:32] LABS: Basophils % 0.3 %; Hematocrit 23.2 % (35.3-44.9); Hemoglobin 7.6 g/dL (11.5-15.4); Mean Corpuscular HGB Conc 32.8 g/dL (31.6-35.5); Red Cell Distribution Width 15.4 % (11.5-14.5)
[2016-06-07 11:34] LABS: Eosinophils # 0.1 K/mcL (0.0-0.6); Eosinophils % 3.3 %; Immature Granulocytes % 0.8 % (0-4); Immature Platelets 8.5 % (1.1-6.1); Lymphocytes # 0.3 K/mcL (0.6-4.6); Lymphocytes % 7.1 %; Mean Corpuscular Hemoglobin 29.6 pg (28.0-33.3); Mean Corpuscular Volume 90.3 fL (83.0-100.0); Mean Platelet Volume 12.9 fL (9.4-12.4); Monocytes # 1.1 K/mcL (0.0-1.3); Monocytes % 29.3 %; Neutrophils # 2.2 K/mcL (1.6-8.9); Red Blood Count 2.57 M/mcL (3.82-4.97); Segmented Neutrophils % 59.2 %
[2016-06-07 11:40] LABS: Albumin 2.9 g/dL (3.5-5.0); Calcium 8.3 mg/dL (8.6-10.8); Globulin 2.8 g/dL (2.4-3.5); Magnesium 2.9 mg/dL (1.6-2.6); Potassium 5.2 mEq/L (3.5-4.5); Total Protein 5.7 g/dL (6.0-8.3)
[2016-06-07 11:41] LABS: Bilirubin,Total 2.5 mg/dL (0.2-1.2); Platelet Count 28 K/mcL (140-400)
--- NOTE | 2016-06-07 12:29 | Internal Med Progress Note ---
Date of Encounter: 06/07/16 Time of Encounter: 11:00 - Assessment and plan (1) Melena Current Visit: Yes Status: Acute Assessment and plan: Patient is admitted with symptomatic anemia with history of melena. Hemoglobin noted to be 6.2 at admission, received 2 units PRBC transfusion with improvement to 7.6 this morning. We will order 2 more units PRBC transfusion along with FFP and platelets. Patient has known history of esophageal varices due to cirrhosis. GI has been consulted by ER physician, possible EGD tomorrow. Continue to monitor hemoglobin. (2) UTI (urinary tract infection) Current Visit: Yes Status: Acute Assessment and plan: Asymptomatic. Urinalysis is suggestive of UTI, urine culture grows gram- negative rods. Continue IV antibiotics and follow up final urine culture results. Qualifiers: Urinary tract infection type: site unspecified Hematuria presence: without hematuria Qualified Code(s): N39.0 - Urinary tract infection, site not specified (3) Upper GI bleed Current Visit: Yes Status: Acute Assessment and plan: Will follow GI recommendations. Plan as above. (4) Acute blood loss anemia Current Visit: Yes Status: Acute (5) Cirrhosis Current Visit: Yes Status: Chronic Assessment and plan: Patient is noted to have thrombocytopenia, esophageal varices, portal hypertension. We will transfuse platelets for possible EGD in a.m. Continue home medications. Qualifiers: Hepatic cirrhosis type: alcoholic cirrhosis Ascites presence: with ascites Qualified Code(s): K70.31 - Alcoholic cirrhosis of liver with ascites (6) Chronic respiratory failure Current Visit: Yes Status: Chronic Assessment and plan: Due to COPD. Patient is noted to be on home oxygen via nasal cannula. Continue supplemental oxygen. Qualifiers: Respiratory failure complication: hypoxia Qualified Code(s): J96.11 - Chronic respiratory failure with hypoxia (7) Insulin dependent diabetes mellitus Current Visit: Yes Status: Chronic Assessment and plan: Accu-Chek blood glucose monitoring with sliding scale insulin. Diabetic diet as tolerated. (8) CKD (chronic kidney disease) stage 3, GFR 30-59 ml/min Current Visit: Yes Status: Chronic Assessment and plan: Patient is noted to have acute kidney injury on underlying chronic kidney disease, likely due to intravascular volume depletion due to blood loss anemia. Nephrology consult appreciated. Serum creatinine is noted to be improving with PRBC transfusion. Baseline serum creatinine is noted to be around 2. Avoid nephrotoxic agents. Follow-up renal ultrasound. (9) Esophageal varices in cirrhosis Current Visit: Yes Status: Chronic (10) COPD (chronic obstructive pulmonary disease) Current Visit: Yes Status: Chronic Assessment and plan: Continue bronchodilators and supplemental oxygen as needed. Not noted to be in acute exacerbation. Qualifiers: COPD type: chronic bronchitis Chronic bronchitis type: simple Qualified Code(s): J41.0 - Simple chronic bronchitis - Subjective Interval history: Report generalized weakness and able to answer only a few questions due to fatigue; history obtained from son at bedside; reports melena but no hematemesis , abdominal pain, chest pain; received 2units PRBC and 1unit platelets; - Constitutional Vitals: Temp Pulse Resp BP Pulse Ox 98.3 F 74 18 139/73 100 06/07/16 11:28 06/07/16 12:10 06/07/16 11:28 06/07/16 11:28 06/07/16 11:28 General appearance: Present: mild distress, A&O X 3 (fatigued, appears chronically ill) - Respiratory Respiratory exam: Present: CTAB. Absent: accessory muscle use, rales, rhonchi, wheezes - Cardiovascular Cardiovascular exam: Present: RRR, +S1, +S2. Absent: diastolic murmur, gallop, rubs, systolic murmur - GI/Abdominal GI/Abdominal exam: Present: distended, normal bowel sounds, soft (obese), no peritoneal signs. Absent: tenderness - Extremities Exam Extremities exam: Present: full ROM, pedal edema, warm, radial pulses palpable and symetrical. Absent: calf tenderness, cyanotic - Neurological Exam Neurological exam: Present: CN II-XII intact, oriented X3, no focal deficits, strengths equal and symetr throughout (diffusely decreased). Absent: pronater drift, facial droop, speech deficit - Skin Skin exam: Present: dry, intact, petechiae (multiple areas of echymoses B/L extremities) Internal Medicine: Result - Labs CBC & Chem 7: 06/07/16 11:20 06/07/16 11:20 Labs: Short CBC 06/07/16 Range/Units 11:20 WBC 3.7 L (4.3-11.1) K/mcL Hgb 7.6 L (11.5-15.4) g/dL Hct 23.2 L (35.3-44.9) % Plt Count 28 L* (140-400) K/mcL BMP 06/07/16 11:20 Sodium 137 Potassium 5.2 H Chloride 113 H Carbon Dioxide 16 L BUN 94 H Creatinine 2.59 H Glucose 181 H Calcium 8.3 L Liver Function 06/07/16 Range/Units 11:20 Total Bilirubin 2.5 H D (0.2-1.2) mg/dL AST 21 (5-34) Units/L ALT 12 (0-55) Units/L Alkaline Phosphatase 127 H (38-126) Units/L Albumin 2.9 L (3.5-5.0) g/dL - ABG Interpretation ABG results: PT/INR, D-dimer PT 13.8 Seconds (9.4-12.1) H 06/06/16 18:12 Consult Discharge Plan - Plan Referrals: Travis Deng Jr, MD [Primary Care Provider] -
[2016-06-07 12:40] LABS: Platelet Estimate Marked Decrease (Normal)
[2016-06-07] MEDS ORDERED: 0.9 % Sodium Chloride 250 ML ONE (13:27)
--- NOTE | 2016-06-07 14:06 | Nephrology Consult Note ---
Date of Encounter: 06/07/16 Time of Encounter: 13:26 Assessment and Plan (1) Acute kidney injury superimposed on chronic kidney disease Current Visit: No Status: Acute ARF is prerenal secondary to decreased effective intravascular volume in the setting of acute blood loss anemia. Has received 2 units of packed RBC platelets last night. Serum creatinine and hemoglobin are improving. pt is nonoliguric, urine output documented as 425 mL Has underlying CKD with baseline cr in the high 1 range . Follow-up renal panel in a.m., monitor urine output. Hyperkalemia, Possible resp alkalosis sec to cirrhosis. check ABG (2) Hypermagnesemia Current Visit: Yes Status: Acute Secondary to renal failure in the setting of magnesium supplements. hold magnesium suppl (3) Essential hypertension Current Visit: Yes Status: Acute Currently BP stable, not on antihypertensives or midodrine History of Present Illness - Reason for Consult Acute Kidney Injury - Chief Complaint arf - History of Present Illness 76-year-old female with h/o cirrhosis, esophageal varices, COPD, dementia, HTN, DM type II and CKD. She came to ER yesterday with with 3 day h/o black stool, coffee-ground emesis and worsening fatigue. v/s in ER were stable. Labs significant for hemoglobin 6.2, platelet count 25, BUN 109, creatinine 3.2 , bicarbonate 19 potassium 5.3. Octreotide and pantoprazole drips were started for GI bleed. Calcium gluconate and bicarbonate were given for hyperkalemia. Ceftriaxone was started for possible UTI Pt has intermittent hyperkalemia, bicarbonate in the mid to high teen range, serum creatinine in the high 1 range. BUN was 43, cr 2.3 on 05/25/2016. 2-D echo 09/2015; lvef 60%, moderate diastolic dysfunction, RVSP 34. Renal US 2015; right kidney 9.6, Left 9.9. Has long-standing history of hypertension, BP meds were discontinued in the past. Currently takes midodrine. History of DM type II for several years completed by neuropathy and retinopathy. Denies taking OTC meds. Has ascites, gets paracentesis every Wednesday. 5 L of fluid was removed last week. Past Med Surg Social Fam HX - Past Medical History Medical history: arthritis, cirrhosis, COPD, dementia, diabetes, GERD, glaucoma , hepatitis, hyperlipidemia, hypertension, liver disease, osteoporosis, renal disease, thyroid disease Psychiatric history: no psych history - Past Surgical History Surgical History: herniorrhaphy - Social History Smoking Status: Never smoker Smokeless Tobacco Status: No Alcohol use: none Drug use: none - Family History Sister Adopted: No Living Status: Hx Family Cardiac Disorders: Yes Hx Family Respiratory Disorders: Yes Hx Family Cancer: Yes Hx Family GI Disorders: Yes (cirrhosis) Hx Family Endocrine Disorder: No Hx Family Neuromuscular Disorders: No Hx Family Neurologic Disorders: No Hx Family HEENT Disorders: No Hx Family Autoimmune Disorders: No Mother Adopted: No Family Member Ethnicity: Non- Living Status: Hx Family Cardiac Disorders: Yes Father History Unknown: Yes Name: adriana castro Age: 60 Hx Family Cardiac Disorders: Yes Son Adopted: Yes Name: sharon Family Member Ethnicity: Non- Living Status: Still Living Hx Family Cardiac Disorders: Yes (HTN) Hx Family Respiratory Disorders: No Hx Family Cancer: No Hx Family GI Disorders: No Hx Family Endocrine Disorder: No Hx Family Neuromuscular Disorders: No Hx Family Neurologic Disorders: No Hx Family HEENT Disorders: No Hx Family Autoimmune Disorders: No Medications and Allergies Cholecalciferol (Vitamin D3) [Vitamin D3] 50,000 unit PO WESA 11/02/14 [History] Magnesium Oxide [Magnesium] 400 mg PO BID 11/02/14 [History] Aspirin 81 mg PO DAILY 30 Days 11/08/14 [Rx] Ipratropium/Albuterol Neb [Duoneb] 3 ml IH Q4HR PRN 04/26/15 [History] Rifaximin [Xifaxan] 550 mg PO BID #60 tablet 05/01/15 [Rx] Cyanocobalamin (Vitamin B-12) [Vitamin B12] 1,000 mcg PO 2XW 09/03/15 [History] Zinc Sulfate 220 mg PO BID 09/03/15 [History] Insulin DETEMIR [Levemir Flextouch] 26 unit SQ BID 10/07/15 [History] Insulin LISPRO [Humalog Kwikpen U-100] 0 unit SQ ACHS 10/07/15 [History] Lactulose 15 ml PO TID PRN 10/07/15 [History] Levothyroxine [Synthroid] 100 mcg PO QAM 10/07/15 [History] Acetaminophen with Codeine [Acetaminophen-Cod #4 Tablet] 1 tab PO Q6H PRN [History] Oxygen 2 l NS AD 12/22/15 [History] Ondansetron ODT [Zofran ODT] 4 mg SL TID PRN 04/02/16 [History] Ranitidine HCl 150 mg PO BID 04/02/16 [History] Diclofenac Sodium 1 appl TP QID PRN 04/09/16 [History] Pantoprazole Sodium [Protonix] 40 mg PO BID #60 tablet. 04/15/16 [Rx] Sucralfate [Carafate] 1 gm PO QIDAC 30 Days 04/15/16 [Rx] Midodrine HCl 2.5 mg PO TID 05/19/16 [History] Linezolid [Zyvox] 600 mg PO BID #5 tablet 05/25/16 [Rx] Allergies No Known Allergies Allergy (Verified 06/29/15 16:22) Review of Systems All Systems review (narrative): c/o worsening fatigue. Denies any further coffee-ground emesis or black stool since admission. Denies voiding problems. Ambulates using a walker at home. Son is at bedside. All other review of symptoms was done and is negative Exam - Vital Signs Vital signs: Initial Vital Signs Temp Pulse Resp BP Pulse Ox 98.0 F 80 16 140/56 99 06/06/16 17:47 06/06/16 17:47 06/06/16 17:47 06/06/16 17:47 06/06/16 17:47 Vital Signs - Last 8 Hours Temp Pulse Resp BP Pulse Ox 06/07/16 12:10 74 06/07/16 11:28 98.3 F 77 18 139/73 100 06/07/16 09:35 68 06/07/16 09:05 97.8 F 79 18 133/67 100 06/07/16 09:02 97.8 F 79 18 133/67 06/07/16 07:41 98.0 F 75 18 123/73 100 06/07/16 06:21 98 F 69 16 137/59 100 06/07/16 06:04 97.9 F 73 18 156/71 100 06/07/16 05:40 98.1 F 73 20 108/40 Intake and Output 04/22/17 04/23/17 04/23/17 23:59 07:59 15:59 Intake Total 420 / 420 210 / 210 Output Total 275 / 275 150 / 150 Balance 145 / 145 60 / 60 Intake: IV Fluids 100 / 100 Rocephin 1,000 MG In 100 / 100 Dextrose 5% (Minibag+) 100 ML 100 ML @ 200 mls/ hr IVPB Q24H [facility] Rx#: [id number] Oral 0 / 0 Blood Product 320 / 320 210 / 210 Platelet Pheresis Lp Irr 0 / 0 210 / 210 2nd Unit [id number] Rbcs Leuko Poor As-1 320 / 320 Unit [id number] Output: Urine 275 / 275 150 / 150 Other: Stool Size Moderate Stool Consistency liquid Stool Color Green # Bowel Movement Diapers 1 Weight 71.9 kg 72.3 kg Blood Glucose* 179 177 Patient Weight 06/07/16 23:59 Weight 72.3 kg - General Appearance Exam: HEENT; there is pallor and icterus NECK; supple , no JVD, no carotid bruit CVS; s1s2 present, regular, no murmurs RESP; good air entry, clear to auscultation ABD; distended, small supraumbilical hernia present reducible. soft, NT, BS present, EXT; no edema, DP pulses palpable. BOTTLE TESTER; alert, answering questions appropriately, cranialgrossly intact Results - Lab Results 06/07/16 11:20 06/07/16 11:20 Most recent lab results Calcium 8.3 mg/dL (8.6-10.8) L 06/07/16 11:20 Magnesium 2.9 mg/dL (1.6-2.6) H 06/07/16 11:20 Consult Discharge Plan - Plan Referrals: Travis Deng Jr, MD [Primary Care Provider] -
[2016-06-07 16:59] LABS: ABG Base Excess -7.1 mEq/L (-2.0 to 3.0); ABG HCO3 17.3 mEQ/L (21-27); ABG Oxygen Saturation 98 % (95-98); ABG PCO2 30 mmHg (35-45); ABG PH 7.37 pH Units (7.32-7.45); ABG PO2 106 mmHg (85-104); ABG TCO2 18.2 mEq/L (20-26); Blood Gas FiO2 30 %
[2016-06-07] MEDS ORDERED: Ipratropium/Albuterol Neb 3 ML IH PRN (20:25)
[2016-06-07] MEDS ORDERED: [UNRECOGNIZED DRUG - OTHER] PO PRN (20:25)
[2016-06-07] MEDS ORDERED: ACETAMINOPHEN WITH CODEINE PO PRN (20:25)
--- NOTE | 2016-06-07 20:33 | Electrocardiograph Report ---
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
[2016-06-07] MEDS: XIFAXAN 550 MG PO SCH (21:35)
[2016-06-07] MEDS: *HR* Acetaminophen w/Cod 300-30 mg 1 TAB TABLET PO PRN (23:51)
[2016-06-08] MEDS: Pantoprazole 40 MG in 0.9 % Sodium Chloride Mini Bag 100 ML IVC SCH ×2 (02:12→07:39)
[2016-06-08 05:28] LABS: Albumin 2.7 g/dL (3.5-5.0); Bilirubin,Total 2.3 mg/dL (0.2-1.2); Calcium 8.2 mg/dL (8.6-10.8); Globulin 2.8 g/dL (2.4-3.5); Potassium 4.4 mEq/L (3.5-4.5); Total Protein 5.5 g/dL (6.0-8.3)
[2016-06-08 05:29] LABS: Albumin 2.8 g/dL (3.5-5.0); Calcium 8.2 mg/dL (8.6-10.8); Magnesium 2.5 mg/dL (1.6-2.6); Phosphorous 2.1 mg/dL (2.3-4.7); Potassium 4.4 mEq/L (3.5-4.5)
[2016-06-08 05:43] LABS: Hemoglobin 9.1 g/dL (11.5-15.4); Red Cell Distribution Width 15.2 % (11.5-14.5)
[2016-06-08 05:45] LABS: Hematocrit 27.1 % (35.3-44.9); Immature Platelets 8.4 % (1.1-6.1); Lymphocytes # 0.5 K/mcL (0.6-4.6); Mean Corpuscular HGB Conc 33.6 g/dL (31.6-35.5); Mean Corpuscular Hemoglobin 30.2 pg (28.0-33.3); Mean Platelet Volume 12.8 fL (9.4-12.4); Red Blood Count 3.01 M/mcL (3.82-4.97)
[2016-06-08 07:06] LABS: Platelet Count 32 K/mcL (140-400)
[2016-06-08 07:13] LABS: Eosinophils # 0.2 K/mcL (0.0-0.6); Monocytes # 0.4 K/mcL (0.0-1.3); Neutrophils # 1.4 K/mcL (1.6-8.9)
[2016-06-08 07:14] LABS: Platelet Estimate Decreased (Normal)
[2016-06-08] MEDS: XIFAXAN 550 MG PO SCH (07:43)
--- NOTE | 2016-06-08 09:01 | Nephrology Progress Note ---
Date of Encounter: 06/08/16 Time of Encounter: 08:59 - Assessment and Plan (1) Acute kidney failure, unspecified Current Visit: Yes Status: Acute Patient has acute kidney injury superimposed on chronic kidney disease in the setting of acute GI bleeding related to cirrhosis and history of esophageal varices. Her renal function is now improving. We will continue to monitor her renal function. Qualifiers: Acute renal failure type: unspecified Qualified Code(s): N17.9 - Acute kidney failure, unspecified (2) Cirrhosis Current Visit: Yes Status: Chronic Qualifiers: Hepatic cirrhosis type: unspecified hepatic cirrhosis Ascites presence: with ascites Qualified Code(s): K74.60 - Unspecified cirrhosis of liver (3) Urinary tract infection Current Visit: No Status: Acute Qualifiers: Urinary tract infection type: acute cystitis Hematuria presence: without hematuria Qualified Code(s): N30.00 - Acute cystitis without hematuria (4) Chronic kidney disease, stage IV (severe) Current Visit: Yes Status: Acute Subjective Interval history: The patient reports she is feeling better. Her renal function is improving. Creatinine is down to 2.3 today. Urine output is only recorded as 150 mL. I suspect this is not accurate since her creatinine is improving. Urine cultures growing gram-negative rods. ABG suggest a component of metabolic acidosis with respiratory compensation. Objective - Vital Signs Vital signs: Vital Signs Temp Pulse Resp BP Pulse Ox 06/08/16 07:44 57 06/08/16 07:33 97.5 F L 58 16 120/41 99 06/08/16 03:55 58 06/08/16 03:52 97.7 F 62 16 122/50 97 06/08/16 01:33 97.8 F 60 20 106/36 06/07/16 23:51 60 06/07/16 23:44 98.0 F 76 17 148/66 100 06/07/16 22:07 98.3 F 76 16 141/61 06/07/16 20:55 98.2 F 72 18 144/66 98 06/07/16 20:15 72 06/07/16 17:55 99.2 F 63 16 120/48 06/07/16 17:13 97.6 F 68 18 133/50 99 06/07/16 16:06 71 18 128/32 100 06/07/16 15:49 78 06/07/16 14:32 77 16 122/48 100 06/07/16 14:03 98.4 F 67 16 121/52 06/07/16 14:01 98 F 74 15 140/62 100 06/07/16 13:48 97.8 F 79 18 140/62 100 06/07/16 12:10 74 06/07/16 11:28 98.3 F 77 18 139/73 100 06/07/16 09:35 68 06/07/16 09:05 97.8 F 79 18 133/67 100 06/07/16 09:02 97.8 F 79 18 133/67 Intake and Output 06/07/16 06/08/16 06/08/16 23:59 07:59 15:59 Intake Total 905 / 905 655 / 655 Output Total 100 / 100 150 / 150 Balance 805 / 805 505 / 505 Intake: IV Fluids 200 / 200 Protonix 40 MG In 0.9 % 100 / 100 Sodium Chloride (Mini-Bag +) 100 ML @ 20 mls/hr IVC .Q5H [facility] Rx#: [id number] Rocephin 1,000 MG In 100 / 100 Dextrose 5% (Minibag+) 100 ML 100 ML @ 200 mls/ hr IVPB Q24H [facility] Rx#: [id number] Oral 180 / 180 Blood Product 725 / 725 455 / 455 Platelet Pheresis Lp Irr 0 / 0 455 / 455 1st Unit [id number] Rbcs Leuko Poor As-1 387 / 387 Unit [id number] Rbcs Leuko Poor As-1 338 / 338 Unit [id number] Output: Urine 100 / 100 150 / 150 Other: Weight 72.6 kg 74.5 kg Blood Glucose* 169 153 Patient Weight 06/08/16 23:59 Weight 74.5 kg - General Appearance Exam: Patient is alert and oriented. She is in no acute distress. Lungs diminished breath sounds otherwise clear. Heart regular rhythm. Abdomen is distended with ascites. There is no tenderness guarding nor rigidity. There is no lower extremity edema. - Lab 06/08/16 04:58 06/08/16 04:58 Most recent lab results ABG pH 7.37 pH Units (7.32-7.45) 06/07/16 16:50 ABG pCO2 30 mmHg (35-45) L 06/07/16 16:50 ABG pO2 106 mmHg (85-104) H 06/07/16 16:50 ABG HCO3 17.3 mEQ/L (21-27) L 06/07/16 16:50 ABG O2 Saturation 98 % (95-98) 06/07/16 16:50 Calcium 8.2 mg/dL (8.6-10.8) L 06/08/16 04:58 Phosphorus 2.1 mg/dL (2.3-4.7) L 06/08/16 04:58 Magnesium 2.5 mg/dL (1.6-2.6) 06/08/16 04:58 - VTE Documentation of Mechanical Device: Intermittent pneumatic compression device Consult Discharge Plan - Plan Referrals: Travis Deng Jr, MD [Primary Care Provider] -
--- NOTE | 2016-06-08 10:46 | Internal Med Progress Note ---
Date of Encounter: 06/08/16 Time of Encounter: 10:44 - Assessment and plan (1) Melena Current Visit: Yes Status: Acute Assessment and plan: Patient is admitted with symptomatic anemia with history of melena. Hemoglobin noted to be 6.2 at admission, received 4 units PRBC transfusion along with 1 unit of FFP and 1 unit platelets during this admission and hemoglobin improved to 9.1 this morning. Patient has known history of esophageal varices due to cirrhosis. GI has been consulted by ER physician, possible EGD today. Await full consult. Continue clear liquid diet as tolerated. Continue to monitor hemoglobin. (2) UTI (urinary tract infection) Current Visit: Yes Status: Acute Assessment and plan: Asymptomatic. Urinalysis is suggestive of UTI, urine culture grows Escherichia coli, sensitive to cephalosporins. Continue IV antibiotics. Qualifiers: Urinary tract infection type: site unspecified Hematuria presence: without hematuria Qualified Code(s): N39.0 - Urinary tract infection, site not specified (3) Upper GI bleed Current Visit: Yes Status: Acute Assessment and plan: Will follow GI recommendations. Plan as above. (4) Acute blood loss anemia Current Visit: Yes Status: Acute Assessment and plan: Improved with PRBC transfusion. Continue to monitor hemoglobin. (5) Cirrhosis Current Visit: Yes Status: Chronic Assessment and plan: Patient is noted to have thrombocytopenia, esophageal varices, portal hypertension. Patient continues to have platelets below 50, will transfuse another unit of platelets today. Continue home medications. Patient scheduled for IR guided paracentesis today, which has been canceled due to thrombocytopenia. Qualifiers: Hepatic cirrhosis type: unspecified hepatic cirrhosis Ascites presence: with ascites Qualified Code(s): K74.60 - Unspecified cirrhosis of liver (6) Chronic respiratory failure Current Visit: Yes Status: Chronic Qualifiers: Respiratory failure complication: hypoxia Qualified Code(s): J96.11 - Chronic respiratory failure with hypoxia (7) Insulin dependent diabetes mellitus Current Visit: Yes Status: Chronic Assessment and plan: Accu-Chek blood glucose monitoring with sliding scale insulin. Diabetic diet as tolerated. (8) CKD (chronic kidney disease) stage 3, GFR 30-59 ml/min Current Visit: Yes Status: Chronic Assessment and plan: Patient is noted to have acute kidney injury on underlying chronic kidney disease, likely due to intravascular volume depletion due to blood loss anemia. Nephrology consult appreciated. Serum creatinine is currently at baseline. Avoid nephrotoxic agents. Follow-up renal ultrasound. (9) Esophageal varices in cirrhosis Current Visit: Yes Status: Chronic (10) COPD (chronic obstructive pulmonary disease) Current Visit: Yes Status: Chronic Qualifiers: COPD type: chronic bronchitis Chronic bronchitis type: simple Qualified Code(s): J41.0 - Simple chronic bronchitis - Subjective Interval history: Feels better; appears tired but probably baseline; no reported abdominal pain, hematemesis; no bowel movements; received 4units PRBC transfusion since admission; - Constitutional Vitals: Temp Pulse Resp BP Pulse Ox 97.5 F L 57 16 120/41 99 06/08/16 07:33 06/08/16 07:44 06/08/16 07:33 06/08/16 07:33 06/08/16 07:33 General appearance: Present: A&O X 3 (chronically ill-appearing) - Respiratory Respiratory exam: Present: CTAB. Absent: accessory muscle use, rales, rhonchi, wheezes - Cardiovascular Cardiovascular exam: Present: RRR, +S1, +S2. Absent: diastolic murmur, gallop, rubs, systolic murmur - GI/Abdominal GI/Abdominal exam: Present: distended (ascites+), normal bowel sounds, soft, no peritoneal signs. Absent: tenderness - Extremities Exam Extremities exam: Present: pedal edema, warm, radial pulses palpable and symetrical. Absent: calf tenderness, cyanotic Internal Medicine: Result - Labs CBC & Chem 7: 06/08/16 04:58 06/08/16 04:58 Labs: Short CBC 06/07/16 06/08/16 Range/Units 11:20 04:58 WBC 3.7 L 2.5 L (4.3-11.1) K/mcL Hgb 7.6 L 9.1 L D (11.5-15.4) g/dL Hct 23.2 L 27.1 L (35.3-44.9) % Plt Count 28 L* 32 L (140-400) K/mcL Neutrophils # 2.2 1.4 L (1.6-8.9) K/mcL BMP 06/07/16 06/08/16 06/08/16 11:20 04:58 04:58 Sodium 137 137 136 Potassium 5.2 H 4.4 4.4 Chloride 113 H 112 H 112 H Carbon Dioxide 16 L 19 19 BUN 94 H 82 H 81 H Creatinine 2.59 H 2.35 H 2.37 H Glucose 181 H 168 H 170 H Calcium 8.3 L 8.2 L 8.2 L Liver Function 06/07/16 06/08/16 06/08/16 Range/Units 11:20 04:58 04:58 Total Bilirubin 2.5 H D 2.3 H (0.2-1.2) mg/dL AST 21 16 (5-34) Units/L ALT 12 12 (0-55) Units/L Alkaline Phosphatase 127 H 110 (38-126) Units/L Albumin 2.9 L 2.8 L 2.7 L (3.5-5.0) g/dL - ABG Interpretation ABG results: ABG ABG pH 7.37 pH Units (7.32-7.45) 06/07/16 16:50 ABG pCO2 30 mmHg (35-45) L 06/07/16 16:50 ABG pO2 106 mmHg (85-104) H 06/07/16 16:50 ABG O2 Saturation 98 % (95-98) 06/07/16 16:50 PT/INR, D-dimer PT 13.8 Seconds (9.4-12.1) H 06/06/16 18:12 - VTE Documentation of Mechanical Device: Intermittent pneumatic compression device Consult Discharge Plan - Plan Referrals: Travis Deng Jr, MD [Primary Care Provider] - 06/16/16 11:00 am
[2016-06-08] MEDS ORDERED: 0.9 % Sodium Chloride 250 ML ONE ×2 (11:52→15:54)
[2016-06-08] MEDS: *HR* Acetaminophen w/Cod 300-30 mg 1 TAB TABLET PO PRN ×2 (12:37→20:40)
--- NOTE | 2016-06-08 16:48 | Event Note ---
Date of Encounter: 06/08/16 Time of Encounter: 16:38 Chart reviewed. Last EGD 04/14/2016 with nonbleeding esophageal ulcer, portal hypertensive gastropathy. No varices noted. Platelets low at 32. Will hold on EGD at this time. Full consult tomorrow.
[2016-06-08] MEDS: Pantoprazole 40 MG VIAL IVP SCH (16:52)
[2016-06-09 03:32] LABS: Basophils % 0.5 %; Eosinophils # 0.1 K/mcL (0.0-0.6); Eosinophils % 4.2 %; Hematocrit 27.6 % (35.3-44.9); Immature Granulocytes % 0.9 % (0-4); Immature Platelets 6.8 % (1.1-6.1); Lymphocytes # 0.4 K/mcL (0.6-4.6); Lymphocytes % 20.3 %; Mean Corpuscular HGB Conc 32.6 g/dL (31.6-35.5); Mean Corpuscular Hemoglobin 29.7 pg (28.0-33.3); Mean Corpuscular Volume 91.1 fL (83.0-100.0); Mean Platelet Volume 11.7 fL (9.4-12.4); Monocytes # 0.5 K/mcL (0.0-1.3); Monocytes % 24.5 %; Red Blood Count 3.03 M/mcL (3.82-4.97); Red Cell Distribution Width 15.4 % (11.5-14.5); Segmented Neutrophils % 49.6 %
[2016-06-09 03:47] LABS: Magnesium 2.5 mg/dL (1.6-2.6)
[2016-06-09 03:48] LABS: Phosphorous 3.4 mg/dL (2.3-4.7)
[2016-06-09 03:50] LABS: Albumin 2.8 g/dL (3.5-5.0); Bilirubin,Total 1.3 mg/dL (0.2-1.2); Calcium 8.2 mg/dL (8.6-10.8); Globulin 2.8 g/dL (2.4-3.5); Potassium 4.6 mEq/L (3.5-4.5); Total Protein 5.6 g/dL (6.0-8.3)
[2016-06-09 04:05] LABS: Platelet Count 38 K/mcL (140-400)
[2016-06-09 04:06] LABS: Platelet Estimate Marked Decrease (Normal)
[2016-06-09] MEDS: Pantoprazole 40 MG VIAL IVP SCH ×2 (05:28→17:42)
--- NOTE | 2016-06-09 08:07 | Nephrology Progress Note ---
Date of Encounter: 06/09/16 Time of Encounter: 08:06 - Assessment and Plan (1) Acute kidney failure, unspecified Current Visit: Yes Status: Acute Patient has acute kidney injury superimposed on chronic kidney disease in the setting of acute GI bleeding related to cirrhosis and esophageal varices. Her renal function is slowly improving back towards baseline. We will continue to monitor. Qualifiers: Acute renal failure type: unspecified Qualified Code(s): N17.9 - Acute kidney failure, unspecified (2) Cirrhosis Current Visit: Yes Status: Chronic Qualifiers: Hepatic cirrhosis type: unspecified hepatic cirrhosis Ascites presence: with ascites Qualified Code(s): K74.60 - Unspecified cirrhosis of liver (3) Urinary tract infection Current Visit: No Status: Acute Qualifiers: Urinary tract infection type: acute cystitis Hematuria presence: without hematuria Qualified Code(s): N30.00 - Acute cystitis without hematuria (4) Chronic kidney disease, stage IV (severe) Current Visit: Yes Status: Acute Subjective Interval history: Patient denies any complaints. Creatinine continues to slowly improve. Hemoglobin is stable. GI input noted from yesterday. Objective - Vital Signs Vital signs: Vital Signs Temp Pulse Resp BP Pulse Ox 06/09/16 07:57 98.1 F 79 19 133/61 99 06/09/16 03:19 97.8 F 61 16 113/64 98 06/09/16 00:18 98.2 F 64 20 127/84 97 06/08/16 23:40 67 06/08/16 20:56 64 100 06/08/16 20:23 98.4 F 74 18 134/63 99 06/08/16 16:54 98.4 F 83 16 139/59 97 06/08/16 16:16 98.4 F 66 16 122/49 94 06/08/16 16:03 81 06/08/16 16:01 98.2 F 77 16 137/56 97 06/08/16 12:41 98.2 F 78 16 106/58 100 06/08/16 12:23 97.8 F 57 16 143/51 99 06/08/16 12:08 97.8 F 79 16 144/67 97 06/08/16 11:41 97.8 F 79 16 144/67 97 06/08/16 11:15 72 Intake and Output 06/08/16 06/09/16 06/09/16 23:59 07:59 15:59 Intake Total 302 / 302 340 / 340 Output Total 250 / 250 Balance 52 / 52 340 / 340 Intake: IV Fluids 100 / 100 Rocephin 1,000 MG In 100 / 100 Dextrose 5% (Minibag+) 100 ML 100 ML @ 200 mls/ hr IVPB Q24H [facility] Rx#: [id number] Oral 240 / 240 Blood Product 302 / 302 Plasma Unit 302 / 302 [id number] Output: Urine 250 / 250 Other: Weight 75.8 kg Blood Glucose* 225 132 Patient Weight 06/09/16 23:59 Weight 75.8 kg - General Appearance Exam: Patient is alert and oriented. She is in no acute distress. Lungs breath sounds. Heart regular rate and rhythm with a 2/6 ejection murmur. Abdomen is soft. Ascites is present. There is no peripheral edema. - Lab 06/09/16 03:16 06/09/16 03:16 Most recent lab results ABG pH 7.37 pH Units (7.32-7.45) 06/07/16 16:50 ABG pCO2 30 mmHg (35-45) L 06/07/16 16:50 ABG pO2 106 mmHg (85-104) H 06/07/16 16:50 ABG HCO3 17.3 mEQ/L (21-27) L 06/07/16 16:50 ABG O2 Saturation 98 % (95-98) 06/07/16 16:50 Calcium 8.2 mg/dL (8.6-10.8) L 06/09/16 03:16 Phosphorus 3.4 mg/dL (2.3-4.7) D 06/09/16 03:16 Magnesium 2.5 mg/dL (1.6-2.6) 06/09/16 03:16 - VTE Documentation of Mechanical Device: Intermittent pneumatic compression device Consult Discharge Plan - Plan Referrals: Travis Deng Jr, MD [Primary Care Provider] - 06/16/16 11:00 am
[2016-06-09] MEDS: Pantoprazole 40 MG in 0.9 % Sodium Chloride Mini Bag 100 ML IVC SCH ×2 (10:08→10:09)
--- NOTE | 2016-06-09 11:40 | Gastroenterology Consult Note ---
<Johnnie Dupree - Last Filed: 06/09/16 11:37> Date of Encounter: 06/09/16 Time of Encounter: 10:10 - Assessment and plan (1) Cirrhosis Current Visit: Yes Status: Chronic Assessment and plan: On admission MELD Na 24, Child-Kim class B, DF 16.6. Continue Rifaximin. Start Zinc supplement and Lactulose and titrate to 2-4 BM daily. Weekly paracentesis. AFP 1 on 03/02/2016. RUQ US 03/04/2016 showed cirrhosis with no lesion. Qualifiers: Hepatic cirrhosis type: unspecified hepatic cirrhosis Ascites presence: with ascites Qualified Code(s): K74.60 - Unspecified cirrhosis of liver (2) Esophageal varices in cirrhosis Current Visit: Yes Status: Chronic Assessment and plan: Last EGD was 04/14/2016 with nonbleeding esophageal ulcer, portal hypertensive gastropathy, no varices noted. (3) Ascites Current Visit: No Status: Chronic Assessment and plan: Pt completes paracentesis weekly. Unable to use Lasix d/t CKD. Recommend transfusing platelets and completing paracentesis. Qualifiers: Ascites type: other type Qualified Code(s): R18.8 - Other ascites (4) Hepatic encephalopathy Current Visit: No Status: Chronic Assessment and plan: Secondary to cirrhosis. Continue Rifaximin, on discharge 550 mg BID while outpatient. Start Lactulose and titrate to 2-4 BM daily. (5) Melena Current Visit: Yes Status: Acute Assessment and plan: Resolved. Will hold on EGD at this time. Last EGD 04/14/2016 with nonbleeding esophageal ulcer, portal hypertensive gastropathy, no varices noted. - Time Spent With Patient Total time spent is greater than 50% in coordination of care (as documented) at patient's floor/unit and/or counseling patient: GI History of Present Illness - Data of Consult Patient: known to practice within the last 3 years Consult date: 06/09/16 Requesting Physician: Joann Todd MD - Consult Narrative Reason for consult: UGI bleed, varices History of present illness: Ms. Flores is a 76 year old female with PMHx of cirrhosis, recurrent hepatic encephalopathy, pancytopenia, CAD stage III, T2DM, CKD, HTN, COPD. She receives paracentesis which are scheduled every week. She has a history of grade 2 esophageal varices which were previously banded. Last EGD negative for varices. Hgb on 05/25 was 9.8 and on admission Hgb 6.2. She reported melena on admission which has since resolved. Procedures: Flexible sigmoidoscopy 04/14/2016 with internal hemorrhoids. EGD 04/14/2016 with nonbleeding esophageal ulcer, portal hypertensive gastropathy Colonoscopy 09/01/2013: With tubulovillous adenoma, poor prep. EGD 10/10/2015 with grade 2 esophageal varices, completely eradicated, banded. Portal hypertensive gastropathy. EGD 04/30/2015 with grade 2 varices, banded, portal hypertensive gastropathy NSAID: ASA Anticoagulation: None Past Med Surg Social Fam HX - Past Medical History Medical history: arthritis, cirrhosis, COPD, dementia, diabetes, GERD, glaucoma , hepatitis, hyperlipidemia, hypertension, liver disease, osteoporosis, renal disease, thyroid disease Psychiatric history: no psych history - Past Surgical History Surgical History: herniorrhaphy - Social History Smoking Status: Never smoker Smokeless Tobacco Status: No Alcohol use: none Drug use: none - Family History Sister Adopted: No Living Status: Hx Family Cardiac Disorders: Yes Hx Family Respiratory Disorders: Yes Hx Family Cancer: Yes Hx Family GI Disorders: Yes (cirrhosis) Hx Family Endocrine Disorder: No Hx Family Neuromuscular Disorders: No Hx Family Neurologic Disorders: No Hx Family HEENT Disorders: No Hx Family Autoimmune Disorders: No Mother Adopted: No Family Member Ethnicity: Non- Living Status: Hx Family Cardiac Disorders: Yes Father History Unknown: Yes Name: adriana castro Age: 60 Hx Family Cardiac Disorders: Yes (MYOCARDIAL INFARCTION.) Son Adopted: [place]: sharon Family Member Ethnicity: Non- Living Status: Still Living Hx Family Cardiac Disorders: Yes (HTN) Hx Family Respiratory Disorders: No Hx Family Cancer: No Hx Family GI Disorders: No Hx Family Endocrine Disorder: No Hx Family Neuromuscular Disorders: No Hx Family Neurologic Disorders: No Hx Family HEENT Disorders: No Hx Family Autoimmune Disorders: No - Gastrointestinal Gastrointestinal: Present: as per HPI - Constitutional Constitutional: as per HPI - EENT Eyes: as per HPI Ears: Present: as per HPI Nose, mouth and throat: Present: as per HPI - Cardiovascular Cardiovascular ROS: Present: as per HPI - Respiratory Respiratory IM: Present: as per HPI - Genitourinary Genitourinary: Absent: change in color, Urinary frequency - Neurological ROS Neurological GI: Present: as per HPI - Hematologic/Lymphatic Hematologic/Lymphatic pediatric: Present: as per HPI - Musculoskeletal Musculoskeletal ROS GI: Present: as per HPI - Integumentary Integumentary GI: Present: as per HPI - Psychiatric ROS Psychiatric GI: Present: as per HPI - Endocrine Endocrine IM: Present: as per HPI - Constitutional Vitals: Temp Pulse Resp BP Pulse Ox 98.1 F 78 19 133/61 99 06/09/16 07:57 06/09/16 10:41 06/09/16 07:57 06/09/16 07:57 06/09/16 08:47 General appearance: Present: cooperative, A&O X 3, no acute distress, answers questions appropriately - Head Head exam: Present: atraumatic, normocephalic - Eye Eye exam: Present: normal appearance, sclera anicteric - ENT ENT exam: Present: mucous membranes dry - Neck Neck exam general surgery: Present: normal inspection, trachea midline - Respiratory Respiratory exam: Present: CTAB. Absent: rales, rhonchi - Cardiovascular Cardiovascular exam: Present: RRR, +S1, +S2 - GI/Abdominal GI/Abdominal exam: Present: distended, soft, no peritoneal signs. Absent: firm , guarding, tenderness - Expanded GI/Abdominal Exam GI/Abdominal exam expanded: Present: ascites - Rectal Rectal exam: Present: deferred - Extremities Exam Extremities exam: Present: warm - Neurological Exam Neurological exam: Present: no focal deficits - Psychiatric Psychiatric exam: Present: normal affect, normal mood - Skin Skin exam: Present: dry, intact, normal color, warm Results - Labs CBC & Chem 7: 06/09/16 03:16 06/09/16 03:16 Labs: Last Result Calcium 8.2 mg/dL (8.6-10.8) L 06/09/16 03:16 Troponin I 0.00 ng/mL (0-0.03) 06/06/16 18:12 Stool Occult Blood Positive (Negative) A 06/06/16 19:25 Entire Visit Hgb 9.0 g/dL (11.5-15.4) L 06/09/16 03:16 Hct 27.6 % (35.3-44.9) L 06/09/16 03:16 PT 13.8 Seconds (9.4-12.1) H 06/06/16 18:12 Total Bilirubin 1.3 mg/dL (0.2-1.2) H 06/09/16 03:16 AST 18 Units/L (5-34) 06/09/16 03:16 ALT 10 Units/L (0-55) 06/09/16 03:16 Ammonia 36 mcmol/L (18-72) 06/06/16 19:12 Lipase 21 Units/L (8-78) 06/06/16 18:12 - ABG ABG results: ABG ABG pH 7.37 pH Units (7.32-7.45) 06/07/16 16:50 ABG pCO2 30 mmHg (35-45) L 06/07/16 16:50 ABG pO2 106 mmHg (85-104) H 06/07/16 16:50 ABG O2 Saturation 98 % (95-98) 06/07/16 16:50 PT/INR, D-dimer PT 13.8 Seconds (9.4-12.1) H 06/06/16 18:12 - Impressions Impressions Retroperitoneum Ultrasound 06/08/16 14:30 IMPRESSION: 1. Suspected increased renal cortical echogenicity suggestive of underlying parenchymal disease. Relative hypodensity of renal parenchyma compared to the liver is likely due to underlying increased hepatic echogenicity related to cirrhosis. 2. Moderate splenomegaly and trace ascites, suggesting portal hypertension. D/ / Johnnie Esposito MD / Johnnie Esposito MD Interpreting Provider: Johnnie Esposito MD Consult Discharge Plan - Plan Referrals: Travis Deng Jr, MD [Primary Care Provider] - 06/16/16 11:00 am <Elvira Styles - Last Filed: 06/10/16 08:03> Date of Encounter: 06/08/16 Time of Encounter: 13:00 - Time Spent With Patient Total time spent is greater than 50% in coordination of care (as documented) at patient's floor/unit and/or counseling patient: GI History of Present Illness - Data of Consult Requesting Physician: Joann Todd MD - Consult Narrative History of present illness: Ms. Flores is a 76 year old female - Constitutional Vitals: Temp Pulse Resp BP Pulse Ox 97.8 F 68 16 147/68 99 06/10/16 07:10 06/10/16 07:10 06/10/16 07:10 06/10/16 07:10 06/10/16 07:10 Results - Labs CBC & Chem 7: 06/10/16 06:08 06/10/16 06:08 Labs: Last Result Calcium 8.4 mg/dL (8.6-10.8) L 06/10/16 06:08 Troponin I 0.00 ng/mL (0-0.03) 06/06/16 18:12 Stool Occult Blood Positive (Negative) A 06/06/16 19:25 Entire Visit Hgb 9.8 g/dL (11.5-15.4) L 06/10/16 06:08 Hct 30.3 % (35.3-44.9) L 06/10/16 06:08 PT 13.8 Seconds (9.4-12.1) H 06/06/16 18:12 Total Bilirubin 1.1 mg/dL (0.2-1.2) 06/10/16 06:08 AST 21 Units/L (5-34) 06/10/16 06:08 ALT 12 Units/L (0-55) 06/10/16 06:08 Ammonia 36 mcmol/L (18-72) 06/06/16 19:12 Lipase 21 Units/L (8-78) 06/06/16 18:12 - ABG ABG results: ABG ABG pH 7.37 pH Units (7.32-7.45) 06/07/16 16:50 ABG pCO2 30 mmHg (35-45) L 06/07/16 16:50 ABG pO2 106 mmHg (85-104) H 06/07/16 16:50 ABG O2 Saturation 98 % (95-98) 06/07/16 16:50 PT/INR, D-dimer PT 13.8 Seconds (9.4-12.1) H 06/06/16 18:12 - Attending Attestation I examined this patient and my medical decision-making was reviewed with the ERP MANAGER/PA/Advanced Practice Nurse/Resident Physician. I agree with the documented findings, disposition and treatment plan as described except to the extent set forth below.
[2016-06-09] MEDS: Zinc Sulfate 220 MG CAPSULE PO SCH (12:25)
[2016-06-09] MEDS: Nystatin POWDER 30 GM BOTTLE TP SCH ×2 (12:29→19:48)
[2016-06-09] MEDS ORDERED: 0.9 % Sodium Chloride 250 ML ONE ×3 (12:57→17:37)
--- NOTE | 2016-06-09 13:21 | Internal Med Progress Note ---
Date of Encounter: 06/09/16 Time of Encounter: 10:00 - Assessment and plan (1) GI bleeding Current Visit: No Status: Acute Assessment and plan: Patient has low hemoglobin on admission. Guaiac positive. SHe has a history of cirrhosis. Consider GI bleeding. - H&H is stable after transfusion. - GI Consul is on case, patient had a recent endoscope done. Hold EGD because of low platelet. - We will close monitor H&H. - On iv PPI Qualifiers: GI bleed type/associated pathology: anorectal hemorrhage Qualified Code(s) : K62.5 - Hemorrhage of anus and rectum (2) Cirrhosis Current Visit: Yes Status: Chronic Assessment and plan: Patient is noted to have thrombocytopenia, esophageal varices, portal hypertension. Patient continues to have platelets below 50, will transfuse another 3 unit of platelets today. Continue home medications. Patient scheduled for IR guided paracentesis today, which has been canceled due to thrombocytopenia. Qualifiers: Hepatic cirrhosis type: unspecified hepatic cirrhosis Ascites presence: with ascites Qualified Code(s): K74.60 - Unspecified cirrhosis of liver (3) DVT prophylaxis Current Visit: No Status: Acute Assessment and plan: EPCD (4) Thrombocytopenia Current Visit: Yes Status: Chronic Assessment and plan: Due to cirrhosis. Will continue platelet transfusion and follow-up platelet level. (5) Acute hepatic encephalopathy Current Visit: No Status: Acute Assessment and plan: Improved. Continue rifaximin and lactulose and zinc. (6) Esophageal varices in cirrhosis Current Visit: Yes Status: Chronic Assessment and plan: GI is on case. Patient had EGD done in this March. (7) Ascites Current Visit: No Status: Chronic Assessment and plan: We will continue weekly paracentasis. Will continue platelet transfusion to reach that goal of platelet over 50K to have paracentesis Qualifiers: Ascites type: other type Qualified Code(s): R18.8 - Other ascites (8) Acute worsening of stage 3 chronic kidney disease Current Visit: No Status: Acute Assessment and plan: Continue close the monitor renal function. Nephrology consult appreciated. - Time Spent With Patient 25 - 35 minutes - Subjective Interval history: Patient is a 76-year-old female admitted for GI bleeding. Her past medical history is significant for cirrhosis. Patient was seen and examined. She is awake alert, still distended abdomen. No signs of active bleeding now, H&H stable. Vitals are stable. GI consult appreciated. Still has low platelet. Will give another 3 units of platelet transfusion. - Constitutional Vitals: Temp Pulse Resp BP Pulse Ox 98.3 F 77 18 143/57 99 06/09/16 12:10 06/09/16 12:10 06/09/16 12:10 06/09/16 12:10 06/09/16 08:47 General appearance: Present: A&O X 3 (chronically ill-appearing) - Head Head exam: Present: atraumatic, normocephalic - Eye Eye exam: Present: PERRL, conjuntiva pink, sclera anicteric Pupils: Present: PERRL - Neck Neck exam general surgery: Present: supple, trachea midline. Absent: lymphadenopathy - Respiratory Respiratory exam: Present: CTAB. Absent: accessory muscle use, rales, rhonchi, wheezes - Cardiovascular Cardiovascular exam: Present: RRR, +S1, +S2. Absent: diastolic murmur, gallop, rubs, systolic murmur - GI/Abdominal GI/Abdominal exam: Present: normal bowel sounds, soft, no peritoneal signs. Absent: distended, tenderness - Extremities Exam Extremities exam: Present: warm, radial pulses palpable and symetrical. Absent : calf tenderness, cyanotic, pedal edema - Neurological Exam Neurological exam: Present: CN II-XII intact, oriented X3, no focal deficits. Absent: pronater drift, facial droop, speech deficit - Skin Skin exam: Present: dry, intact Internal Medicine: Result - Labs CBC & Chem 7: 06/09/16 03:16 06/09/16 03:16 Labs: Short CBC 06/09/16 Range/Units 03:16 WBC 2.1 L (4.3-11.1) K/mcL Hgb 9.0 L (11.5-15.4) g/dL Hct 27.6 L (35.3-44.9) % Plt Count 38 L (140-400) K/mcL Neutrophils # 1.0 L (1.6-8.9) K/mcL BMP 06/09/16 03:16 Sodium 138 Potassium 4.6 H Chloride 111 H Carbon Dioxide 20 BUN 71 H Creatinine 2.21 H Glucose 152 H Calcium 8.2 L Liver Function 06/09/16 Range/Units 03:16 Total Bilirubin 1.3 H (0.2-1.2) mg/dL AST 18 (5-34) Units/L ALT 10 (0-55) Units/L Alkaline Phosphatase 122 (38-126) Units/L Albumin 2.8 L (3.5-5.0) g/dL - ABG Interpretation ABG results: ABG ABG pH 7.37 pH Units (7.32-7.45) 06/07/16 16:50 ABG pCO2 30 mmHg (35-45) L 06/07/16 16:50 ABG pO2 106 mmHg (85-104) H 06/07/16 16:50 ABG O2 Saturation 98 % (95-98) 06/07/16 16:50 PT/INR, D-dimer PT 13.8 Seconds (9.4-12.1) H 06/06/16 18:12 - Impressions Impressions Retroperitoneum Ultrasound 06/08/16 14:30 IMPRESSION: 1. Suspected increased renal cortical echogenicity suggestive of underlying parenchymal disease. Relative hypodensity of renal parenchyma compared to the liver is likely due to underlying increased hepatic echogenicity related to cirrhosis. 2. Moderate splenomegaly and trace ascites, suggesting portal hypertension. D/ / Johnnie Esposito MD / Johnnie Esposito MD Interpreting Provider: Johnnie Esposito MD - VTE Documentation of Mechanical Device: Intermittent pneumatic compression device Consult Discharge Plan - Plan Referrals: Travis Deng Jr, MD [Primary Care Provider] - 06/16/16 11:00 am
[2016-06-09] MEDS: Insulin LISPRO 300 UNITS/3 ML VIAL SQ SCH ×2 (16:40→19:50)
[2016-06-09] MEDS: Lactulose Oral Soln 20 GM/30 ML UDC PO SCH (19:48)
[2016-06-09] MEDS ORDERED: Insulin DETEMIR 100 UNIT/ML X5UNITS SQ SCH (21:00)
[2016-06-10] MEDS: Pantoprazole 40 MG VIAL IVP SCH ×2 (06:13→18:07)
[2016-06-10 06:52] LABS: Hemoglobin 9.8 g/dL (11.5-15.4); Mean Corpuscular Hemoglobin 29.7 pg (28.0-33.3)
[2016-06-10 06:54] LABS: Basophils % 0.9 %; Eosinophils # 0.2 K/mcL (0.0-0.6); Eosinophils % 6.8 %; Hematocrit 30.3 % (35.3-44.9); Immature Granulocytes % 1.5 % (0-4); Lymphocytes # 0.7 K/mcL (0.6-4.6); Lymphocytes % 19.8 %; Mean Corpuscular HGB Conc 32.3 g/dL (31.6-35.5); Mean Corpuscular Volume 91.8 fL (83.0-100.0); Monocytes # 0.7 K/mcL (0.0-1.3); Monocytes % 21.3 %; Neutrophils # 1.7 K/mcL (1.6-8.9); Red Cell Distribution Width 15.4 % (11.5-14.5); Segmented Neutrophils % 49.7 %
[2016-06-10 07:01] LABS: Platelet Count 53 K/mcL (140-400)
[2016-06-10 07:14] LABS: Albumin 3.1 g/dL (3.5-5.0); Bilirubin,Total 1.1 mg/dL (0.2-1.2); Calcium 8.4 mg/dL (8.6-10.8); Globulin 3.2 g/dL (2.4-3.5); Potassium 4.3 mEq/L (3.5-4.5); Total Protein 6.3 g/dL (6.0-8.3)
[2016-06-10 07:40] LABS: Platelet Estimate Decreased (Normal)
[2016-06-10] MEDS: Zinc Sulfate 220 MG CAPSULE PO SCH (08:31)
[2016-06-10] MEDS: Lactulose Oral Soln 20 GM/30 ML UDC PO SCH ×2 (08:31→19:34)
[2016-06-10] MEDS: Nystatin POWDER 30 GM BOTTLE TP SCH ×2 (08:32→19:34)
[2016-06-10] MEDS: Insulin LISPRO 300 UNITS/3 ML VIAL SQ SCH ×4 (08:32→21:16)
--- NOTE | 2016-06-10 12:00 | Gastroenterology Progress Note ---
<DupreeJohnnie rao - Last Filed: 06/10/16 11:58> Date of Encounter: 06/10/16 Time of Encounter: 10:55 - Assessment and plan (1) Cirrhosis Current Visit: Yes Status: Chronic Assessment and plan: On admission MELD Na 24, Child-Kim class B, DF 16.6. Continue Rifaximin, Zinc, and Lactulose. Titrate Lactulose to 2-4 BM daily. Paracentesis planned for today. AFP 1 on 03/02/2016. RUQ US 03/04/2016 showed cirrhosis with no lesion. Qualifiers: Hepatic cirrhosis type: unspecified hepatic cirrhosis Ascites presence: with ascites Qualified Code(s): K74.60 - Unspecified cirrhosis of liver (2) Esophageal varices in cirrhosis Current Visit: Yes Status: Chronic Assessment and plan: Last EGD was 04/14/2016 with nonbleeding esophageal ulcer, portal hypertensive gastropathy, no varices noted. (3) Ascites Current Visit: No Status: Chronic Assessment and plan: Pt completes paracentesis weekly. Unable to use Lasix d/t CKD. Pt received 3 units Plts yesterday and plan to complete paracentesis today. Qualifiers: Ascites type: other type Qualified Code(s): R18.8 - Other ascites (4) Hepatic encephalopathy Current Visit: No Status: Chronic Assessment and plan: Secondary to cirrhosis. Continue Rifaximin, on discharge 550 mg BID while outpatient. Continue Lactulose and titrate to 2-4 BM daily. (5) Melena Current Visit: Yes Status: Acute Assessment and plan: Resolved. Will hold on EGD at this time. Last EGD 04/14/2016 with nonbleeding esophageal ulcer, portal hypertensive gastropathy, no varices noted. - Time Spent With Patient Total time spent is greater than 50% in coordination of care (as documented) at patient's floor/unit and/or counseling patient: - Subjective Interval history: Pt alert and oriented this AM. She received 3 units of Plts yesterday, and Plt count this AM 53. She reports her abdomen feels full today. - Constitutional Vitals: Temp Pulse Resp BP Pulse Ox 97.8 F 74 16 131/63 98 06/10/16 11:40 06/10/16 11:40 06/10/16 11:40 06/10/16 11:40 06/10/16 11:40 General appearance: Present: cooperative, A&O X 3, no acute distress, answers questions appropriately - Head Head exam: Present: atraumatic, normocephalic - Eye Eye exam: Present: normal appearance, sclera anicteric - ENT ENT exam: Present: mucous membranes moist - Neck Neck exam general surgery: Present: normal inspection, trachea midline - Respiratory Respiratory exam: Present: CTAB. Absent: rales, rhonchi - Cardiovascular Cardiovascular exam: Present: RRR, +S1, +S2 - GI/Abdominal GI/Abdominal exam: Present: distended, soft, no peritoneal signs. Absent: firm , guarding, tenderness - Expanded GI/Abdominal Exam GI/Abdominal exam expanded: Present: ascites - Rectal Rectal exam: Present: deferred - Extremities Exam Extremities exam: Present: warm - Neurological Exam Neurological exam: Present: no focal deficits - Psychiatric Psychiatric exam: Present: normal affect, normal mood - Skin Skin exam: Present: dry, intact, normal color, warm Results - Labs CBC & Chem 7: 06/10/16 06:08 06/10/16 06:08 Labs: Last Result Calcium 8.4 mg/dL (8.6-10.8) L 06/10/16 06:08 Troponin I 0.00 ng/mL (0-0.03) 06/06/16 18:12 Stool Occult Blood Positive (Negative) A 06/06/16 19:25 Entire Visit Hgb 9.8 g/dL (11.5-15.4) L 06/10/16 06:08 Hct 30.3 % (35.3-44.9) L 06/10/16 06:08 PT 13.8 Seconds (9.4-12.1) H 06/06/16 18:12 Total Bilirubin 1.1 mg/dL (0.2-1.2) 06/10/16 06:08 AST 21 Units/L (5-34) 06/10/16 06:08 ALT 12 Units/L (0-55) 06/10/16 06:08 Ammonia 36 mcmol/L (18-72) 06/06/16 19:12 Lipase 21 Units/L (8-78) 06/06/16 18:12 - ABG ABG results: ABG ABG pH 7.37 pH Units (7.32-7.45) 06/07/16 16:50 ABG pCO2 30 mmHg (35-45) L 06/07/16 16:50 ABG pO2 106 mmHg (85-104) H 06/07/16 16:50 ABG O2 Saturation 98 % (95-98) 06/07/16 16:50 PT/INR, D-dimer PT 13.8 Seconds (9.4-12.1) H 06/06/16 18:12 - VTE Documentation of Mechanical Device: Intermittent pneumatic compression device Consult Discharge Plan - Plan Referrals: Travis Deng Jr, MD [Primary Care Provider] - 06/16/16 11:00 am <Elvira Styles - Last Filed: 06/10/16 14:06> Date of Encounter: 06/10/16 Time of Encounter: 13:00 - Time Spent With Patient Total time spent is greater than 50% in coordination of care (as documented) at patient's floor/unit and/or counseling patient: - Constitutional Vitals: Temp Pulse Resp BP Pulse Ox 97.8 F 74 16 131/63 98 06/10/16 11:40 06/10/16 11:40 06/10/16 11:40 06/10/16 11:40 06/10/16 11:40 Results - Labs CBC & Chem 7: 06/10/16 06:08 06/10/16 06:08 Labs: Last Result Calcium 8.4 mg/dL (8.6-10.8) L 06/10/16 06:08 Troponin I 0.00 ng/mL (0-0.03) 06/06/16 18:12 Stool Occult Blood Positive (Negative) A 06/06/16 19:25 Entire Visit Hgb 9.8 g/dL (11.5-15.4) L 06/10/16 06:08 Hct 30.3 % (35.3-44.9) L 06/10/16 06:08 PT 13.8 Seconds (9.4-12.1) H 06/06/16 18:12 Total Bilirubin 1.1 mg/dL (0.2-1.2) 06/10/16 06:08 AST 21 Units/L (5-34) 06/10/16 06:08 ALT 12 Units/L (0-55) 06/10/16 06:08 Ammonia 36 mcmol/L (18-72) 06/06/16 19:12 Lipase 21 Units/L (8-78) 06/06/16 18:12 - ABG ABG results: ABG ABG pH 7.37 pH Units (7.32-7.45) 06/07/16 16:50 ABG pCO2 30 mmHg (35-45) L 06/07/16 16:50 ABG pO2 106 mmHg (85-104) H 06/07/16 16:50 ABG O2 Saturation 98 % (95-98) 06/07/16 16:50 PT/INR, D-dimer PT 13.8 Seconds (9.4-12.1) H 06/06/16 18:12 - Attending Attestation I examined this patient and my medical decision-making was reviewed with the AFRICAN HISTORY PROFESSOR/PA/Advanced Practice Nurse/Resident Physician. I agree with the documented findings, disposition and treatment plan as described except to the extent set forth below.
[2016-06-10] MEDS: *HR* Acetaminophen w/Cod 300-30 mg 1 TAB TABLET PO PRN (13:18)
--- NOTE | 2016-06-10 14:35 | IR Procedure Note ---
Date of procedure: 06/10/16 Consent Obtained: Written consent Timeout: Correct patient and procedure verified, Correct site verified, Time out performed, Skin prep completed Indications: ascites Procedure Performed: paracentesis Site/Technique: 8F shemartha Lt abdomen Results/Findings: large ascites Estimated blood loss (cc): 0 Complications: None; Tolerated procedure well Post Procedure Treatment Plan: recovery
[2016-06-10] MEDS ORDERED: Albumin 25% 25gram/100mL 25 GM/100 ML IV.SOLN IVPB SCH (15:15)
[2016-06-10] MEDS: Albumin 25% 25gram/100mL 25 GM/100 ML IV.SOLN IVPB SCH ×2 (16:28→18:07)
--- NOTE | 2016-06-10 16:40 | Internal Med Progress Note ---
Date of Encounter: 06/10/16 Time of Encounter: 09:00 - Assessment and plan (1) GI bleeding Current Visit: No Status: Acute Assessment and plan: Patient has low hemoglobin on admission. Guaiac positive. SHe has a history of cirrhosis. Consider GI bleeding. - H&H is stable after transfusion. - GI Consul is on case, patient had a recent endoscope done. Hold EGD this time. - We will close monitor H&H. - On iv PPI Qualifiers: GI bleed type/associated pathology: unspecified gastrointestinal hemorrhage type Qualified Code(s): K92.2 - Gastrointestinal hemorrhage, unspecified (2) Cirrhosis Current Visit: Yes Status: Chronic Assessment and plan: Patient is noted to have thrombocytopenia, esophageal varices, portal hypertension. Continue home medications. Patient scheduled for IR guided paracentesis today as platelet level improved after transfusion. Qualifiers: Hepatic cirrhosis type: unspecified hepatic cirrhosis Ascites presence: with ascites Qualified Code(s): K74.60 - Unspecified cirrhosis of liver (3) DVT prophylaxis Current Visit: No Status: Acute Assessment and plan: EPCD (4) Thrombocytopenia Current Visit: Yes Status: Chronic Assessment and plan: Due to cirrhosis. Improved after platelet transfusion. (5) Acute hepatic encephalopathy Current Visit: No Status: Acute Assessment and plan: Improved. Continue rifaximin and lactulose and zinc. (6) Esophageal varices in cirrhosis Current Visit: Yes Status: Chronic Assessment and plan: GI is on case. Patient had EGD done in this March. (7) Ascites Current Visit: No Status: Chronic Assessment and plan: We will continue weekly paracentasis. Had paracentesis today by IR Qualifiers: Ascites type: other type Qualified Code(s): R18.8 - Other ascites (8) Acute worsening of stage 3 chronic kidney disease Current Visit: No Status: Acute Assessment and plan: Continue close the monitor renal function. Nephrology consult appreciated. Renal function improving. Will give albumin after paracentesis today. - Time Spent With Patient 25 - 35 minutes - Subjective Interval history: Patient is a 76-year-old female admitted for GI bleeding. Her past medical history is significant for cirrhosis. Patient was seen and examined. She is awake alert, still distended abdomen. No signs of active bleeding now, H&H stable. Vitals are stable. GI consult appreciated. Plt>50k today after transfusion. Will have IR paracentesis. - Constitutional Vitals: Temp Pulse Resp BP Pulse Ox 97.7 F 63 16 127/54 99 06/10/16 15:57 06/10/16 15:57 06/10/16 16:28 06/10/16 15:57 06/10/16 16:28 General appearance: Present: A&O X 3 (chronically ill-appearing) - Head Head exam: Present: atraumatic, normocephalic - Eye Eye exam: Present: PERRL, conjuntiva pink, sclera anicteric Pupils: Present: PERRL - Neck Neck exam general surgery: Present: supple, trachea midline. Absent: lymphadenopathy - Respiratory Respiratory exam: Present: CTAB. Absent: accessory muscle use, rales, rhonchi, wheezes - Cardiovascular Cardiovascular exam: Present: RRR, +S1, +S2. Absent: diastolic murmur, gallop, rubs, systolic murmur - GI/Abdominal GI/Abdominal exam: Present: distended, normal bowel sounds, soft, no peritoneal signs. Absent: tenderness - Extremities Exam Extremities exam: Present: warm, radial pulses palpable and symetrical. Absent : calf tenderness, cyanotic, pedal edema - Neurological Exam Neurological exam: Present: CN II-XII intact, oriented X3, no focal deficits. Absent: pronater drift, facial droop, speech deficit - Skin Skin exam: Present: dry, intact Internal Medicine: Result - Labs CBC & Chem 7: 06/10/16 06:08 06/10/16 06:08 Labs: Short CBC 06/10/16 Range/Units 06:08 WBC 3.4 L D (4.3-11.1) K/mcL Hgb 9.8 L (11.5-15.4) g/dL Hct 30.3 L (35.3-44.9) % Plt Count 53 L (140-400) K/mcL Neutrophils # 1.7 (1.6-8.9) K/mcL BMP 06/10/16 06:08 Sodium 138 Potassium 4.3 Chloride 110 H Carbon Dioxide 21 BUN 60 H Creatinine 1.98 H Glucose 60 L Calcium 8.4 L Liver Function 06/10/16 Range/Units 06:08 Total Bilirubin 1.1 (0.2-1.2) mg/dL AST 21 (5-34) Units/L ALT 12 (0-55) Units/L Alkaline Phosphatase 125 (38-126) Units/L Albumin 3.1 L (3.5-5.0) g/dL - ABG Interpretation ABG results: ABG ABG pH 7.37 pH Units (7.32-7.45) 06/07/16 16:50 ABG pCO2 30 mmHg (35-45) L 06/07/16 16:50 ABG pO2 106 mmHg (85-104) H 06/07/16 16:50 ABG O2 Saturation 98 % (95-98) 06/07/16 16:50 PT/INR, D-dimer PT 13.8 Seconds (9.4-12.1) H 06/06/16 18:12 - Impressions Impressions Paracentesis Ultrasound 06/10/16 09:36 IMPRESSION: Successful ultrasound guided paracentesis. D/ / Eri Dobson MD / Eri Dobson MD Interpreting Provider: Eri Dobson MD - VTE Documentation of Mechanical Device: Intermittent pneumatic compression device Consult Discharge Plan - Plan Referrals: Travis Deng Jr, MD [Primary Care Provider] - 06/16/16 11:00 am
[2016-06-10] MEDS: Insulin DETEMIR 100 UNIT/ML X5UNITS SQ SCH (21:16)
[2016-06-11] MEDS: Pantoprazole 40 MG VIAL IVP SCH (05:51)
[2016-06-11] MEDS: Zinc Sulfate 220 MG CAPSULE PO SCH (08:28)
[2016-06-11] MEDS: Lactulose Oral Soln 20 GM/30 ML UDC PO SCH (08:28)
[2016-06-11] MEDS: Insulin DETEMIR 100 UNIT/ML X5UNITS SQ SCH (08:28)
[2016-06-11] MEDS: Insulin LISPRO 300 UNITS/3 ML VIAL SQ SCH ×2 (08:30→11:44)
[2016-06-11] MEDS: Nystatin POWDER 30 GM BOTTLE TP SCH (08:30)
--- NOTE | 2016-06-11 08:49 | Nephrology Progress Note ---
Date of Encounter: 06/11/16 Time of Encounter: 08:25 - Assessment and Plan (1) Acute kidney injury superimposed on chronic kidney disease Current Visit: No Status: Acute Patient has AKIsuperimposed on CKD in the setting of acute GI bleeding related to cirrhosis and history of esophageal varices. Today's labs pending. Docemented urine output 620cc. If discharged, will follow in office 2-3 weeks with labs. Subjective Interval history: Resting quietly in bed. States feeling better. No new complaints. Family at bedside. Objective - Vital Signs Vital signs: Vital Signs Temp Pulse Resp BP Pulse Ox 06/11/16 07:30 97.9 F 81 14 114/43 98 06/11/16 04:21 77 06/11/16 04:00 98.4 F 83 17 125/56 97 06/11/16 01:15 98.1 F 78 16 119/52 99 06/11/16 00:13 70 06/10/16 20:28 97.8 F 67 16 130/55 100 06/10/16 19:30 65 98 06/10/16 16:28 16 99 06/10/16 15:57 97.7 F 63 16 127/54 99 06/10/16 14:40 71 16 130/48 100 06/10/16 11:40 97.8 F 74 16 131/63 98 06/10/16 11:39 97 06/10/16 11:29 74 97 Intake and Output 06/10/16 06/11/16 06/11/16 23:59 07:59 15:59 Intake Total 475 / 475 800 / 800 Output Total 150 / 150 550 / 550 Balance 325 / 325 250 / 250 Intake: IV Fluids 200 / 200 Flexbumin 25 gm In 100 ml 200 / 200 @ 50 mls/hr IVPB Q2H JANKI Rx#:[id number] Oral 275 / 275 800 / 800 Output: Urine 150 / 150 Stool 550 / 550 Other: Meal Dinner Percent of Meal Consumed 25% Stool Size Moderate Stool Consistency loose liquid Stool Color Brown # Voids 1 Weight 74.9 kg Blood Glucose* 233 207 Patient Weight 06/11/16 23:59 Weight 74.9 kg - General Appearance General appearance: Present: well-developed, well-nourished, appears started age EENT: Present: mucous membranes moist Neck: Present: no JVD Respiratory: Present: clear Cardiology: Present: no edema, regular rate, regular rhythm Gastrointestinal: Present: normoactive bowel sounds, no tenderness Additional Comments: ascites Integumentary: Present: warm and dry Neurologic: Present: alert and oriented x3 Psychiatric: Present: mood/affect appropriate, cooperative - Lab 06/10/16 06:08 06/10/16 06:08 Most recent lab results ABG pH 7.37 pH Units (7.32-7.45) 06/07/16 16:50 ABG pCO2 30 mmHg (35-45) L 06/07/16 16:50 ABG pO2 106 mmHg (85-104) H 06/07/16 16:50 ABG HCO3 17.3 mEQ/L (21-27) L 06/07/16 16:50 ABG O2 Saturation 98 % (95-98) 06/07/16 16:50 Calcium 8.4 mg/dL (8.6-10.8) L 06/10/16 06:08 Phosphorus 3.4 mg/dL (2.3-4.7) D 06/09/16 03:16 Magnesium 2.5 mg/dL (1.6-2.6) 06/09/16 03:16 - VTE Documentation of Mechanical Device: Intermittent pneumatic compression device Consult Discharge Plan - Plan Referrals: Travis Deng Jr, MD [Primary Care Provider] - 06/16/16 11:00 am
[2016-06-11 09:19] LABS: Basophils % 0.3 %; Eosinophils # 0.1 K/mcL (0.0-0.6); Eosinophils % 4.7 %; Hematocrit 31.7 % (35.3-44.9); Hemoglobin 10.3 g/dL (11.5-15.4); Immature Platelets 5.5 % (1.1-6.1); Lymphocytes # 0.4 K/mcL (0.6-4.6); Lymphocytes % 13.9 %; Mean Corpuscular HGB Conc 32.5 g/dL (31.6-35.5); Mean Corpuscular Volume 92.4 fL (83.0-100.0); Mean Platelet Volume 11.1 fL (9.4-12.4); Monocytes # 0.5 K/mcL (0.0-1.3); Monocytes % 15.5 %; Neutrophils # 1.9 K/mcL (1.6-8.9); Red Blood Count 3.43 M/mcL (3.82-4.97); Red Cell Distribution Width 15.5 % (11.5-14.5); Segmented Neutrophils % 64.6 %
[2016-06-11 09:32] LABS: Calcium 8.8 mg/dL (8.6-10.8); Potassium 4.4 mEq/L (3.5-4.5)
[2016-06-11 09:54] LABS: Platelet Count 59 K/mcL (140-400)
[2016-06-11 11:29] LABS: Platelet Estimate Decreased (Normal)
--- NOTE | 2016-06-11 11:30 | Discharge Summary ---
Date of Encounter: 06/11/16 Time of Encounter: 10:00 - Discharge Diagnosis (1) GI bleeding Priority: Primary Status: Acute Qualifiers: GI bleed type/associated pathology: unspecified gastrointestinal hemorrhage type Qualified Code(s): K92.2 - Gastrointestinal hemorrhage, unspecified (2) Cirrhosis Priority: Secondary Status: Chronic Qualifiers: Hepatic cirrhosis type: unspecified hepatic cirrhosis Ascites presence: with ascites Qualified Code(s): K74.60 - Unspecified cirrhosis of liver (3) DVT prophylaxis Priority: Secondary Status: Acute (4) Thrombocytopenia Priority: Secondary Status: Chronic (5) Acute hepatic encephalopathy Priority: Secondary Status: Acute (6) Esophageal varices in cirrhosis Priority: Secondary Status: Chronic (7) Ascites Priority: Primary Status: Chronic Qualifiers: Ascites type: other type Qualified Code(s): R18.8 - Other ascites (8) Acute worsening of stage 3 chronic kidney disease Priority: Secondary Status: Acute - Discharge Medications Home Medications: RX: Cholecalciferol (Vitamin D3) [Vitamin D3] 50,000 unit PO WESA 11/02/14 [ History] RX: Magnesium Oxide [Magnesium] 400 mg PO BID 11/02/14 [History] RX: Aspirin 81 mg PO DAILY 30 Days 11/08/14 [Rx] RX: Ipratropium/Albuterol Neb [Duoneb] 3 ml IH Q4HR PRN 04/26/15 [History] RX: Rifaximin [Xifaxan] 550 mg PO BID #60 tablet 05/01/15 [Rx] RX: Cyanocobalamin (Vitamin B-12) [Vitamin B12] 1,000 mcg PO 2XW 09/03/15 [ History] RX: Zinc Sulfate 220 mg PO BID 09/03/15 [History] RX: Insulin DETEMIR [Levemir Flextouch] 26 unit SQ BID 10/07/15 [History] RX: Insulin LISPRO [Humalog Kwikpen U-100] 0 unit SQ ACHS 10/07/15 [History] RX: Lactulose 15 ml PO TID PRN 10/07/15 [History] RX: Levothyroxine [Synthroid] 100 mcg PO QAM 10/07/15 [History] RX: Acetaminophen with Codeine [Acetaminophen-Cod #4 Tablet] 1 tab PO Q6H PRN [History] RX: Oxygen 2 l NS AD 11/06/16 [History] RX: Ondansetron ODT [Zofran ODT] 4 mg SL TID PRN 04/02/16 [History] RX: Ranitidine HCl 150 mg PO BID 04/02/16 [History] RX: Diclofenac Sodium 1 appl TP QID PRN 04/09/16 [History] RX: Pantoprazole Sodium [Protonix] 40 mg PO BID #60 tablet. 04/15/16 [Rx] RX: Sucralfate [Carafate] 1 gm PO QIDAC 30 Days 04/15/16 [Rx] RX: Midodrine HCl 2.5 mg PO TID 05/19/16 [History] RX: Linezolid [Zyvox] 600 mg PO BID #5 tablet 05/25/16 [Rx] Allergies/Adverse Reactions: Allergies No Known Allergies Allergy (Verified 06/29/15 16:22) Procedures/tests Complete & Pending: Procedures Performed prior 72 hours Category Date Time Status US retroperitoneal limited [US] Routine Exams 06/08/16 14:30 Completed IR paracentesis ultrasound [IR] Routine IR 06/10/16 09:36 Completed Date of admission: 06/06/16 23:50 Primary care physician: Travis Deng Jr, MD Consults: 06/07/16 04:30 Consult to Coal Deliverer [CONS] Routine Reason for SW Consult: has homehealth through [facility]. may need more help. 06/08/16 08:41 Consult to Gastroenterology [CONS] Routine Consulting Provider: Gastroenterology [place] Reason for Consult: UGI bleed, esophageal varices Call Completed: Yes 06/10/16 09:35 Consult to Interventional Radiology [CONS] Routine Consulting Provider: Radiology Interventional [facility] Reason for Consult: Paracentesis Call Completed: Yes Discharging clinician: Joann Todd Anticipated date of discharge: 06/11/16 - Patient Status Disposition: Home Health Service Condition: Fair Overall status at discharge: patient is back to baseline - Discharge Instructions Follow Up With: Travis Deng Jr, MD [Primary Care Provider] - 06/16/16 11:00 am Yaneth Anderson, NUT P[employer]ER [Advanced Practice Nurse] - - Diet and Activity Activity: as per physical therapy Diet: diabetic diet Interval History: Ms. Flores is a 76 year old female with h/o cirrhosis of liver, esophageal varices, COPD, dementia, diabetes, hyperlipidemia, hypertension, CKD. pancytopenia. She presents to the emergency department with history of black stools for 3 days, feels tired and weak. Reports some episodes of vomiting since yesterday. She had 2 episodes of coffee-ground vomit today. She denies abdominal pain, dysuria. She has ascites and chronic abdominal distention s/p multiple paracentesis. She denies chest pain, shortness of breath, cough, expectation, fever, chills. She was evaluated in the emergency department and was noted to have positive fecal occult blood and hemoglobin of 6.2; hematocrit 19.4 platelets 25. ER physician discussed with gastroenteritis Dr. Styles, who recommended to start octreotide and pantoprazole infusions. Patient is okay to stay in this hospital. Hospital course: Ms. Flores is a 76 year old female admitted for GI bleeding. She has history of cirrhosis with varicosis of esophagus vein. She was given transfusion. GI consult was called and saw patient. After transfusion her blood hemoglobin level is stable, no signs of active bleeding. GI decided not doing EGD because the patient had EGD recently in [place]. patient had paracentesis by interventional radiology. Patient is ready to discharge home and continue outpatient treatment. Examined Patient today. She is awake alert, oriented 3. Vitals are stable. No further complaints. Will discharge patient home with home health. Follow up as outpatient with GI and PCP. - Time Spent with Patient Total time spent providing and/or coordinating discharge services: 40 minutes Greater than 30 minutes - Constitutional Vitals: Temp Pulse Resp BP Pulse Ox 97.9 F 81 14 114/43 98 06/11/16 07:30 06/11/16 07:30 06/11/16 07:30 06/11/16 07:30 06/11/16 07:30 General appearance: Present: A&O X 3 (chronically ill-appearing), no acute distress, answers questions appropriately - Head Head exam: Present: atraumatic, normocephalic - Eye Eye exam: Present: PERRL, conjuntiva pink, sclera anicteric Pupils: Present: PERRL - Neck Neck exam general surgery: Present: supple, trachea midline. Absent: lymphadenopathy - Respiratory Respiratory exam: Present: CTAB. Absent: accessory muscle use, rales, rhonchi, wheezes - Cardiovascular Cardiovascular exam: Present: RRR, +S1, +S2. Absent: diastolic murmur, gallop, rubs, systolic murmur - GI/Abdominal GI/Abdominal exam: Present: distended, normal bowel sounds, soft, no peritoneal signs. Absent: tenderness - Extremities Exam Extremities exam: Present: warm, radial pulses palpable and symetrical. Absent : calf tenderness, cyanotic, pedal edema - Neurological Exam Neurological exam: Present: CN II-XII intact, oriented X3, no focal deficits. Absent: pronater drift, facial droop, speech deficit - Skin Skin exam: Present: dry, intact - VTE Documentation of Mechanical Device: Intermittent pneumatic compression device
--- NOTE | 2016-06-11 11:39 | Physician Discharge Referral ---
Home Health/Hosp Referral Info Transfer to: Home Health Provider in Charge Post Discharge: PCP - Diagnosis (1) GI bleeding Status: Acute (2) Cirrhosis Status: Chronic (3) DVT prophylaxis Status: Acute (4) Thrombocytopenia Status: Chronic (5) Acute hepatic encephalopathy Status: Acute (6) Esophageal varices in cirrhosis Status: Chronic (7) Ascites Status: Chronic (8) Acute worsening of stage 3 chronic kidney disease Status: Acute - Respiratory Orders Oxygen / L per min (2) Smoking Cessation: Smoking cessation has been advised. For more information, call the [place] Tobacco Quit Line at 5-779-KFBH-NOW. - Diet/Nutrition Diet/Nutrition Orders: No Concentrated Sweets - Services Needed Following services are medically necessary services: Nursing, Physical Therapy - Transfer Medications Home Medications: Cholecalciferol (Vitamin D3) [Vitamin D3] 50,000 unit PO WESA 11/02/14 [History] Magnesium Oxide [Magnesium] 400 mg PO BID 11/02/14 [History] Aspirin 81 mg PO DAILY 30 Days 11/08/14 [Rx] Ipratropium/Albuterol Neb [Duoneb] 3 ml IH Q4HR PRN 04/26/15 [History] Rifaximin [Xifaxan] 550 mg PO BID #60 tablet 05/01/15 [Rx] Cyanocobalamin (Vitamin B-12) [Vitamin B12] 1,000 mcg PO 2XW 09/03/15 [History] Zinc Sulfate 220 mg PO BID 09/03/15 [History] Insulin DETEMIR [Levemir Flextouch] 26 unit SQ BID 10/07/15 [History] Insulin LISPRO [Humalog Kwikpen U-100] 0 unit SQ ACHS 10/07/15 [History] Lactulose 15 ml PO TID PRN 10/07/15 [History] Levothyroxine [Synthroid] 100 mcg PO QAM 10/07/15 [History] Acetaminophen with Codeine [Acetaminophen-Cod #4 Tablet] 1 tab PO Q6H PRN [History] Oxygen 2 l NS AD 12/22/15 [History] Ondansetron ODT [Zofran ODT] 4 mg SL TID PRN 04/02/16 [History] Ranitidine HCl 150 mg PO BID 04/02/16 [History] Diclofenac Sodium 1 appl TP QID PRN 04/09/16 [History] Pantoprazole Sodium [Protonix] 40 mg PO BID #60 tablet. 04/15/16 [Rx] Sucralfate [Carafate] 1 gm PO QIDAC 30 Days 04/15/16 [Rx] Midodrine HCl 2.5 mg PO TID 05/19/16 [History] Linezolid [Zyvox] 600 mg PO BID #5 tablet 05/25/16 [Rx] Allergies/Adverse Reactions: Allergies No Known Allergies Allergy (Verified 06/29/15 16:22) Certification: Further, I certify that my clinical findings support that this patient is homebound (i.e. absences from home require considerable and taxing effort and are for medical reasons or mandaen services or infrequently or short duration when for other reasons) because: Homebound Reason: Patient requires assistance of a person or device to safely leave home Attestation: My signature below is to certify that this patient is under my care and that I, or nurse practitioner, or a physician's behavioral assistant working with me, has a face-to -face encounter with this patient.
[2016-06-11 11:43] VITALS: BP 138/67
== END 2016-06-11 13:47 | disposition home health service (06) | DRG 377 ==
LOC: EMEROO 17:46 → 3ANU 17:46 → 2NNU 23:38 → SUATTDRO 23:50 → 2NNU 06-07 00:32
PROVIDERS: ADMIT Internal Medicine; ATTEND Internal Medicine

== ENCOUNTER 2016-07-14 11:43 | Inpatient (IN) ==
--- NOTE | 2016-07-14 12:08 | Emergency Department Note ---
Disposition Clinical Impression: Anemia Qualifiers: Anemia type: unspecified type Qualified Code(s): D64.9 - Anemia, unspecified Ascites Qualifiers: Ascites type: other type Qualified Code(s): R18.8 - Other ascites Disposition: Admitted As Inpatient Condition: Fair Referrals: Travis Deng Jr, MD [Primary Care Provider] - Forms: ED Satisfaction Letter Time of Disposition: 12:21 Recheck wound or abnormal lab - General Chief Complaint: ED Recheck/Abnormal Lab/Rx Stated Complaint: low hemoglobin Time Seen by Provider: 07/14/16 11:59 Source: patient, family Mode of arrival: ambulatory Limitations: no limitations Nursing Notes Reviewed: Yes Vital Signs Reviewed: Yes - History of Present Illness HPI Narrative: 76-year-old who has a history of cirrhosis who comes in from interventional radiology with abnormal lab. Patient was scheduled for a paracentesis and was found to have a hemoglobin of 5.6. Patient has had blood transfusions in the past secondary to low hemoglobin. Review of the records show a colonoscopy done in April of this year showed internal hemorrhoids, endoscopy showed esophageal ulcer. Pt Subjective Complaint: abnormal lab(s) Symptoms Since Prior Visit: no new symptoms Context: called for abnormal lab result Associated symptoms: none - Related Data Home Medications Medication Instructions Recorded Confirmed Cholecalciferol (Vitamin D3) 50,000 unit PO WESA 11/02/14 06/07/16 [Vitamin D3] Magnesium Oxide [Magnesium] 400 mg PO BID 11/02/14 06/07/16 Ipratropium/Albuterol Neb [Duoneb] 3 ml IH Q4HR PRN 04/26/15 06/07/16 Cyanocobalamin (Vitamin B-12) 1,000 mcg PO 2XW 09/03/15 06/07/16 [Vitamin B12] Zinc Sulfate 220 mg PO BID 09/03/15 06/07/16 Insulin DETEMIR [Levemir Flextouch] 26 unit SQ BID 10/07/15 06/07/16 Insulin LISPRO [Humalog Kwikpen 0 unit SQ ACHS 10/07/15 06/07/16 U-100] Lactulose 15 ml PO TID PRN 10/07/15 06/07/16 Levothyroxine [Synthroid] 100 mcg PO QAM 10/07/15 06/07/16 Acetaminophen with Codeine 1 tab PO Q6H PRN 12/22/15 06/07/16 [Acetaminophen-Cod #4 Tablet] Oxygen 2 l NS AD 12/22/15 06/07/16 Ondansetron ODT [Zofran ODT] 4 mg SL TID PRN 04/02/16 06/07/16 raNITIdine HCl [Ranitidine HCl] 150 mg PO BID 04/02/16 06/07/16 Diclofenac Sodium 1 appl TP QID PRN 04/09/16 06/07/16 Midodrine HCl 2.5 mg PO TID 05/19/16 06/07/16 Previous Rx's Medication Instructions Recorded Aspirin 81 mg PO DAILY 30 Days 11/08/14 Rifaximin [Xifaxan] 550 mg PO BID #60 tablet 05/01/15 Pantoprazole Sodium [Protonix] 40 mg PO BID #60 tablet. 04/15/16 Sucralfate [Carafate] 1 gm PO QIDAC 30 Days 04/15/16 Linezolid [Zyvox] 600 mg PO BID #5 tablet 05/25/16 Allergies Allergy/AdvReac Type Severity Reaction Status Date / Time No Known Allergies Allergy Verified 07/14/16 11:53 All systems ED: reviewed and negative except as stated. Constitutional: Denies: fever, chills, weakness, weight change Eyes: Denies: eye pain, eye discharge, vision change ENT ED: Denies: ear pain, throat pain, dental pain, hearing loss, epistaxis, congestion, dysphagia Cardiovascular: Denies: chest pain, palpitations, dyspnea on exertion, edema, syncope Respiratory: Reports: dyspnea. Denies: cough, wheezes, hemoptysis, stridor Gastrointestinal: Denies: abdominal pain, nausea, vomiting, diarrhea, constipation, hematemesis, melena, hematochezia Genitourinary: Denies: dysuria, frequency, hematuria, discharge Musculoskeletal: Denies: back pain, neck pain, arthralgia, myalgia Integumentary: Denies: rash, abrasion, lesions Neurological: Denies: headache, weakness, numbness, paresthesias, confusion, abnormal gait, vertigo Psychiatric: Denies: anxiety, depression, suicidal thoughts, homicidal thoughts , auditory hallucinations, visual hallucinations Endocrine: Denies: fatigue Hematological/Lymphatic: Denies: easy bleeding, easy bruising Allergic/Immunologic: Denies: facial swelling, urticaria Past Medical History - Past Medical History Medical history: Reports: arthritis, cirrhosis, COPD, dementia, diabetes, GERD, glaucoma, hepatitis, hyperlipidemia, hypertension, liver disease, osteoporosis, renal disease, thyroid disease Surgical history: Reports: herniorrhaphy Psychiatric history: Reports: no psych history 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: no 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 SUPERVISOR history - Social History Smoking Status: Never smoker Smokeless Tobacco Status: No Alcohol use: Reports: none Drug use: Reports: none Physical Exam - General Limitations: no limitations General appearance: alert, in no apparent distress - Head Head exam: atraumatic, normocephalic, normal inspection - Eye Eye exam: Present: normal appearance, PERRL, EOMI - ENT ENT exam: normal exam, normal oropharynx, mucous membranes moist - Neck Neck exam: Present: normal inspection, full ROM, trachea midline - Chest Chest inspection: Present: normal inspection, symmetric chest wall rise - Respiratory Respiratory exam: Present: normal lung sounds bilaterally - Cardiovascular Cardiovascular exam: Present: regular rate, normal rhythm, normal heart sounds - Abdominal Exam Abdominal exam: Present: soft, Non-Tender, ascites. Absent: tenderness, distention, guarding, rebound, rigidity - Rectal Exam Booster Pump Operator present during exam: Yes Rectal exam: Present: black stool - Extremities Exam Extremities exam: Present: normal inspection, full ROM. Absent: tenderness, pedal edema - Expanded Lower Extremity Exam Neurovascular/Tendon exam: Absent: motor deficit, sensory deficit, tendon deficit Gait: observed and normal - Back Exam Back exam: Present: normal inspection, full ROM. Absent: tenderness - Neurological Exam Neurological exam: Present: alert, oriented X3 - Psychiatric Psychiatric exam: Present: normal affect, normal mood - Skin Skin exam: Present: warm, dry, intact, normal color Course - Reevaluation(s) Reevaluation #1: 76-year-old with cirrhosis of the liver who comes in with a hemoglobin of 5.6. She had a colonoscopy and endoscopy in April which showed internal hemorrhoids and an esophageal ulcer. She will be transfused and followed for further evaluation. Time: 12:20 - Consultations Consultation #1: Discussed with Dr. Terry, admit. Time: 12:34 Vital Signs Temperature 97.8 F 07/14/16 11:54 Pulse Rate 75 07/14/16 11:54 Respiratory Rate 14 07/14/16 11:54 Blood Pressure 142/69 07/14/16 11:54 O2 Sat by Pulse Oximetry 98 07/14/16 11:54 Temperature 97.8 F 07/14/16 11:54 Pulse Rate 75 07/14/16 12:03 Respiratory Rate 20 07/14/16 12:03 Blood Pressure 134/55 07/14/16 12:03 O2 Sat by Pulse Oximetry 100 07/14/16 12:03 Oxygen Delivery Oxygen Delivery Room Air Recheck wound or abnormal lab - Lab Data Lab results reviewed: Yes I reviewed the patient's lab results. Lab Results 07/14/16 Range/Units 12:18 PT 13.1 H (9.4-12.1) Seconds INR 1.2 - EKG Data EKG attestation: Yes I reviewed and interpreted this EKG. EKG shows normal: sinus rhythm Rate: normal Rhythm: NSR Interpretation: nonspecific ST-T wave changes Critical Care Time Critical Care Time: Yes Total Critical Care Time: 30 Attestation: The high probability of a clinically significant, sudden or life threatening deterioration of the [hematology] system(s) required my full and direct attention, intervention and personal management. The aggregate critical care time was [30] minutes. This time is in addition to time spent performing reported procedures but includes the following: [x] Data Review and interpretation [x] Patient assessment and monitoring of vital signs [x] Documentation [x] Medication orders and management
[2016-07-14 12:34] LABS: INR 1.2; Prothrombin Time 13.1 Seconds (9.4-12.1)
[2016-07-14 12:43] LABS: Calcium 8.3 mg/dL (8.6-10.8); Potassium 5.7 mEq/L (3.5-4.5)
[2016-07-14] MEDS ORDERED: 0.9 % Sodium Chloride 500 ML ONE ×2 (13:24→18:07)
--- NOTE | 2016-07-14 14:07 | Internal Med History&Physical ---
Date of Encounter: 07/20/16 Time of Encounter: 14:05 Assessment and Plan (1) GI bleeding Status: Acute Cirrhosis of the liver Last EGD 05/2016: No obvious gastric/esophageal varices Noted that patient is a stool guaiac positive Gastroenterology consult.. We will follow the recommendation Qualifiers: GI bleed type/associated pathology: unspecified gastrointestinal hemorrhage type Qualified Code(s): K92.2 - Gastrointestinal hemorrhage, unspecified (2) Shortness of breath Status: Acute Patient is having shortness of breath. This is likely secondary to her increased work of breathing. (3) Hypertension Status: Acute Stable for now We will continue the present medication Qualifiers: Hypertension type: essential hypertension Qualified Code(s): I10 - Essential (primary) hypertension (4) Cirrhosis Status: Chronic Cirrhosis etiology likely secondary to EtOH Qualifiers: Hepatic cirrhosis type: alcoholic cirrhosis Ascites presence: with ascites Qualified Code(s): K70.31 - Alcoholic cirrhosis of liver with ascites Internal Medicine - H&P: HPI Chief complaint: Abnormal LAbs Plans for Post Hospital Care: Home History of present illness: 76/F Brief PMH : Cirrhosis, DM, HTN, IHD, Ascitis which needs to decompressed every 2 weeks. HPI: Patient came this morning for abdominal paracentesis. Labs were drawn. Noted that patient has a hemoglobin of 5.6. This was the reason she was sent to emergency room for further evaluation. Noted that patient was seen in the emergency room. Patient denies chest pain, shortness of breath, dizziness or diarrhea. Emergency room workup: Patient was seen by emergency room physician.Patient's stool occult blood was positive.Patient's creatinine is elevated. Patient was referred to hospitals for further management. Reason for admission: Patient admitted to the inpatient for ? GI bleed. GI was consulted Family history: Noncontributory Past Med Surg Social Fam HX - Past Medical History Medical history: arthritis, cirrhosis, COPD, dementia, diabetes, GERD, glaucoma , hepatitis, hyperlipidemia, hypertension, liver disease, osteoporosis, renal disease, thyroid disease Psychiatric history: no psych history - Past Surgical History Surgical History: herniorrhaphy - Social History Smoking Status: Never smoker Smokeless Tobacco Status: No Alcohol use: none Drug use: none - Family History Sister Adopted: No Living Status: Hx Family Cardiac Disorders: Yes Hx Family Respiratory Disorders: Yes Hx Family Cancer: Yes Hx Family GI Disorders: Yes (cirrhosis) Hx Family Endocrine Disorder: No Hx Family Neuromuscular Disorders: No Hx Family Neurologic Disorders: No Hx Family HEENT Disorders: No Hx Family Autoimmune Disorders: No Mother Adopted: No Family Member Ethnicity: Non- Living Status: Hx Family Cardiac Disorders: Yes Father Hx Family Cardiac Disorders: Yes (MYOCARDIAL INFARCTION.) Son Adopted: No Family Member Ethnicity: Non- Living Status: Still Living Hx Family Cardiac Disorders: Yes (HTN) Hx Family Respiratory Disorders: No Hx Family Cancer: No Hx Family GI Disorders: No Hx Family Endocrine Disorder: No Hx Family Neuromuscular Disorders: No Hx Family Neurologic Disorders: No Hx Family HEENT Disorders: No Hx Family Autoimmune Disorders: No Internal Medicine - H&P: Meds Cholecalciferol (Vitamin D3) [Vitamin D3] 50,000 unit PO WESA 11/02/14 [History] Magnesium Oxide [Magnesium] 400 mg PO BID 11/02/14 [History] Aspirin 81 mg PO DAILY 30 Days 11/08/14 [Rx] Ipratropium/Albuterol Neb [Duoneb] 3 ml IH Q4HR PRN 04/26/15 [History] Rifaximin [Xifaxan] 550 mg PO BID #60 tablet 05/01/15 [Rx] Cyanocobalamin (Vitamin B-12) [Vitamin B12] 1,000 mcg PO 2XW 09/03/15 [History] Zinc Sulfate 220 mg PO BID 09/03/15 [History] Insulin DETEMIR [Levemir Flextouch] 26 unit SQ BID 10/07/15 [History] Insulin LISPRO [Humalog Kwikpen U-100] 0 unit SQ ACHS 10/07/15 [History] Lactulose 15 ml PO TID PRN 10/07/15 [History] Levothyroxine [Synthroid] 100 mcg PO QAM 10/07/15 [History] Oxygen 2 l NS AD 12/22/15 [History] Ondansetron ODT [Zofran ODT] 4 mg SL TID PRN 04/02/16 [History] raNITIdine HCl [Ranitidine HCl] 150 mg PO BID 04/02/16 [History] Diclofenac Sodium 1 appl TP QID PRN 04/09/16 [History] Sucralfate [Carafate] 1 gm PO QIDAC 30 Days 04/15/16 [Rx] Midodrine HCl 2.5 mg PO TID 05/19/16 [History] HYDROcodone/Acet 5/325 mg [[place] 5-325 mg] 1 tab PO Q8H PRN 07/14/16 [History] Pantoprazole Sodium [Protonix] 40 mg PO DAILY 07/14/16 [History] Allergies No Known Allergies Allergy (Verified 07/14/16 11:53) All Systems PM: A 10-system review of systems was performed and is negative for pertinent findings except as documented above in the HPI. - Constitutional Constitutional: no chills, no fever(s), no night sweats - EENT Eyes: no change in vision, no discharge, no pain, no photophobia Ears: no ear discharge, no ear pain, no tinnitus Nose, mouth and throat: no dysphagia, no nasal discharge, no neck pain, no sore throat - Cardiovascular Cardiovascular ROS IM: no chest pain, no diaphoresis, no dyspnea, no lightheadedness, no palpitations, no syncope - Respiratory Respiratory: no cough, no dyspnea, no wheezing, no excessive phlegm production - Gastrointestinal Gastrointestinal: no abdominal pain, no diarrhea, no hematemesis, no hematochezia, no melena, no nausea, no vomiting Additional comments: Abdominal distention. - Genitourinary Genitourinary: no change in urinary stream, no dysuria, no flank pain, no hematuria - Musculoskeletal Musculoskeletal ROS IM: no numbness, no tingling - Integumentary Integumentary IM: no rash, no unusual bruising - Neurological Neurological ROS: no confusion, no convulsions, no focal weakness, no numbness, no tingling, no tremor(s) - Hematologic/Lymphatic Hematologic/Lymphatic: no easy bruising - Constitutional Vitals: Temp Pulse Resp BP Pulse Ox 97.6 F 81 16 148/54 100 07/14/16 13:53 07/14/16 13:53 07/14/16 13:53 07/14/16 13:53 07/14/16 13:53 General appearance: Present: A&O X 3, pleasant, no acute distress, answers questions appropriately - Head Head exam: Present: atraumatic, normocephalic - Eye Eye exam: Present: PERRL, conjuntiva pink, sclera anicteric Pupils: Present: PERRL - Neck Neck exam general surgery: Present: supple, trachea midline. Absent: lymphadenopathy - Respiratory Respiratory exam: Present: CTAB. Absent: accessory muscle use, rales, rhonchi, wheezes - Cardiovascular Cardiovascular exam: Present: RRR, +S1, +S2. Absent: diastolic murmur, gallop, rubs, systolic murmur - GI/Abdominal GI/Abdominal exam: Present: distended, normal bowel sounds, soft, no peritoneal signs. Absent: tenderness - Extremities Exam Extremities exam: Present: warm, radial pulses palpable and symetrical. Absent : calf tenderness, cyanotic, pedal edema - Neurological Exam Neurological exam: Present: CN II-XII intact, oriented X3, no focal deficits. Absent: pronater drift, facial droop, speech deficit - Skin Skin exam: Present: dry, intact Internal Med - H&P Results - Labs CBC & Chem 7: 07/16/16 03:47 07/16/16 03:47
[2016-07-14] MEDS ORDERED: Naloxone 0.4 MG/ML INJ IVP PRN (14:19)
[2016-07-14] MEDS ORDERED: ACETAMINOPHEN WITH CODEINE PO PRN (14:24)
[2016-07-14] MEDS ORDERED: Ondansetron ODT 4 MG TAB.RAPDIS SL PRN (14:24)
[2016-07-14] MEDS ORDERED: Lactulose Oral Soln 20 GM/30 ML UDC PO PRN (14:24)
[2016-07-14] MEDS ORDERED: NON-FORMULARY MEDICATION 1 EACH EACH (Oxygen [Oxygen] 2 L) NS SCH (14:30)
[2016-07-14] MEDS ORDERED: Ipratropium/Albuterol Neb 3 ML IH PRN (16:00)
[2016-07-14] MEDS ORDERED: Furosemide 20 MG/2 ML VIAL IVP ONE (16:42)
[2016-07-14] MEDS: Pantoprazole 40 MG VIAL IVP SCH (17:02)
[2016-07-14] MEDS: Sucralfate 1 GM TABLET PO SCH ×2 (17:03→21:37)
--- NOTE | 2016-07-14 18:21 | Electrocardiograph Report ---
[place] [id number] Test Date: 2016-07-14 Pat Name: Nellie Flores Department: 105 Room: [id number] Gender: F [facility] Consultant: : 1940 Requested By: Rafael Jenkins Order Number: [id number] Reading MD: Saima Mckinnon Measurements Intervals [place] Rate: 77 P: 36 MA: 146 QRS: -29 QRSD: 118 T: 79 QT: 428 QTc: 460 Interpretive Statements SINUS RHYTHM BORDERLINE LEFT AXIS DEVIATION INTRAVENTRICULAR CONDUCTION DELAY NONSPECIFIC T-WAVE ABNORMALITY Electronically Signed On 07-14-2016 18:19:30 EDT by Saima Mckinnon
[2016-07-14] MEDS ORDERED: INSULIN DETEMIR 26 UNIT SQ SCH (21:00)
[2016-07-14] MEDS: Magnesium Oxide 400 MG TABLET PO SCH (21:36)
[2016-07-14] MEDS: Zinc Sulfate 220 MG CAPSULE PO SCH (21:37)
[2016-07-14] MEDS: Insulin DETEMIR 100 UNIT/ML X5UNITS SQ SCH (21:39)
[2016-07-15 04:46] LABS: Albumin 2.6 g/dL (3.5-5.0); Albumin/Globulin Ratio 0.9 (1.1-2.2); Bilirubin,Total 2.3 mg/dL (0.2-1.2); Calcium 8.1 mg/dL (8.6-10.8); Globulin 2.8 g/dL (2.4-3.5); Magnesium 2.9 mg/dL (1.6-2.6); Phosphorous 4.9 mg/dL (2.3-4.7); Potassium 5.5 mEq/L (3.5-4.5); Total Protein 5.4 g/dL (6.0-8.3)
[2016-07-15] MEDS: Pantoprazole 40 MG VIAL IVP SCH ×2 (05:23→17:27)
[2016-07-15 05:34] LABS: Basophils % 0.6 %; Eosinophils # 0.2 K/mcL (0.0-0.6); Eosinophils % 5.5 %; Hematocrit 24.2 % (35.3-44.9); Hemoglobin 7.5 g/dL (11.5-15.4); Immature Granulocytes % 0.3 % (0-4); Immature Platelets 4.6 % (1.1-6.1); Lymphocytes # 0.6 K/mcL (0.6-4.6); Lymphocytes % 18.3 %; Mean Corpuscular Hemoglobin 29.3 pg (28.0-33.3); Mean Corpuscular Volume 94.5 fL (83.0-100.0); Mean Platelet Volume 11.4 fL (9.4-12.4); Monocytes # 0.4 K/mcL (0.0-1.3); Monocytes % 14.1 %; Neutrophils # 1.9 K/mcL (1.6-8.9); Platelet Count 53 K/mcL (140-400); Red Blood Count 2.56 M/mcL (3.82-4.97); Red Cell Distribution Width 19.8 % (11.5-14.5); Segmented Neutrophils % 61.2 %
[2016-07-15] MEDS: Sucralfate 1 GM TABLET PO SCH ×4 (08:09→21:53)
[2016-07-15] MEDS: Insulin DETEMIR 100 UNIT/ML X5UNITS SQ SCH ×2 (08:09→21:54)
[2016-07-15] MEDS: Magnesium Oxide 400 MG TABLET PO SCH (08:10)
[2016-07-15] MEDS: Zinc Sulfate 220 MG CAPSULE PO SCH ×2 (08:10→21:53)
--- NOTE | 2016-07-15 09:16 | Internal Med Progress Note ---
<Rafael Jenkins P - Last Filed: 07/15/16 14:24> Date of Encounter: 07/15/16 - Assessment and plan (1) GI bleeding Current Visit: No Status: Acute Qualifiers: GI bleed type/associated pathology: unspecified gastrointestinal hemorrhage type Qualified Code(s): K92.2 - Gastrointestinal hemorrhage, unspecified (2) Shortness of breath Current Visit: No Status: Acute (3) Hypertension Current Visit: No Status: Acute Qualifiers: Hypertension type: essential hypertension Qualified Code(s): I10 - Essential (primary) hypertension (4) Cirrhosis Current Visit: No Status: Chronic Qualifiers: Hepatic cirrhosis type: unspecified hepatic cirrhosis Ascites presence: with ascites Qualified Code(s): K74.60 - Unspecified cirrhosis of liver - Constitutional Vitals: Temp Pulse Resp BP Pulse Ox 97.7 F 73 17 120/45 98 07/15/16 11:40 07/15/16 11:40 07/15/16 11:40 07/15/16 11:40 07/15/16 11:40 Internal Medicine: Result - Labs CBC & Chem 7: 07/15/16 12:25 07/15/16 04:05 Labs: Short CBC 07/15/16 07/15/16 Range/Units 05:15 12:25 WBC 3.1 L 3.3 L (4.3-11.1) K/mcL Hgb 7.5 L D 7.2 L (11.5-15.4) g/dL Hct 24.2 L 22.9 L (35.3-44.9) % Plt Count 53 L 51 L (140-400) K/mcL Neutrophils # 1.9 (1.6-8.9) K/mcL BMP 07/15/16 04:05 Sodium 140 Potassium 5.5 H Chloride 116 H Carbon Dioxide 20 BUN 71 H Creatinine 2.35 H Glucose 119 H Calcium 8.1 L Liver Function 07/15/16 Range/Units 04:05 Total Bilirubin 2.3 H (0.2-1.2) mg/dL AST 36 H (5-34) Units/L ALT 20 (0-55) Units/L Alkaline Phosphatase 144 H (38-126) Units/L Albumin 2.6 L (3.5-5.0) g/dL - ABG Interpretation ABG results: PT/INR, D-dimer PT 13.6 Seconds (9.4-12.1) H 07/15/16 09:27 Consult Discharge Plan - Plan Referrals: Travis Deng Jr, MD [Primary Care Provider] - - Attending Attestation I examined this patient and my medical decision-making was reviewed with the ELDER COUNSELOR/PA/Advanced Practice Nurse/Resident Physician. I agree with the documented findings, disposition and treatment plan as described except to the extent set forth below. advanced Cirrhosis S/P transfusion 2 PRBC underwent paracentesis will see progress possible home tomorrow <Trevor Alston - Last Filed: 07/15/16 17:42> Date of Encounter: 07/15/16 Time of Encounter: 17:31 - Assessment and plan (1) GI bleeding Current Visit: Yes Status: Acute Assessment and plan: 76 F presented with low hgb of 5.9 from interventional radiologist office as patient was planned to undergo regular weekly paracentesis 2nd to cirrhosis. Had flex sig in mar that showed internal hemorrhoids and EGD in april showing esopahgeal ulcers no varices noted. -2units of PBRC replaced. HGb 7.5>>7.2 -recheck hgb tonight and am -underwent paracentesis today with removal of approximately 3L of straw colored fluid. -GI consulted: awaiting recommendations: currently no plan for scope. Cirrhosis: -continue rifaximin, zinc, and lacutlose Qualifiers: GI bleed type/associated pathology: unspecified gastrointestinal hemorrhage type Qualified Code(s): K92.2 - Gastrointestinal hemorrhage, unspecified (2) Cirrhosis Current Visit: Yes Status: Chronic Qualifiers: Hepatic cirrhosis type: alcoholic cirrhosis Ascites presence: with ascites Qualified Code(s): K70.31 - Alcoholic cirrhosis of liver with ascites (3) DVT prophylaxis Current Visit: Yes Status: Acute Assessment and plan: EPCD. - Subjective Interval history: Patient states she feels weak. Denies abdominal pain, nausea vomiting, melena, hematochezia, hemetemsis. - Constitutional Vitals: Temp Pulse Resp BP Pulse Ox 98.1 F 77 17 136/60 100 07/15/16 07:32 07/15/16 07:32 07/15/16 07:32 07/15/16 07:32 07/15/16 07:32 General appearance: Present: A&O X 3, pleasant, no acute distress, answers questions appropriately - Respiratory Respiratory exam: Present: CTAB. Absent: accessory muscle use, rales, rhonchi, wheezes - Cardiovascular Cardiovascular exam: Present: RRR, +S1, +S2. Absent: diastolic murmur, gallop, rubs, systolic murmur - GI/Abdominal Additional comments: mid abdominal hernia, fluid wave, ascities, non tender, distended, positive bowel sounds. - Extremities Exam Extremities exam: Present: warm, radial pulses palpable and symetrical. Absent : calf tenderness, cyanotic, pedal edema - Neurological Exam Neurological exam: Present: CN II-XII intact, oriented X3, no focal deficits. Absent: pronater drift, facial droop, speech deficit - Skin Skin exam: Present: dry, intact Internal Medicine: Result - Labs CBC & Chem 7: 07/15/16 12:25 07/15/16 04:05 Labs: Short CBC 07/15/16 Range/Units 05:15 WBC 3.1 L (4.3-11.1) K/mcL Hgb 7.5 L D (11.5-15.4) g/dL Hct 24.2 L (35.3-44.9) % Plt Count 53 L (140-400) K/mcL Neutrophils # 1.9 (1.6-8.9) K/mcL BMP 07/15/16 04:05 Sodium 140 Potassium 5.5 H Chloride 116 H Carbon Dioxide 20 BUN 71 H Creatinine 2.35 H Glucose 119 H Calcium 8.1 L Liver Function 07/15/16 Range/Units 04:05 Total Bilirubin 2.3 H (0.2-1.2) mg/dL AST 36 H (5-34) Units/L ALT 20 (0-55) Units/L Alkaline Phosphatase 144 H (38-126) Units/L Albumin 2.6 L (3.5-5.0) g/dL - ABG Interpretation ABG results: PT/INR, D-dimer PT 13.1 Seconds (9.4-12.1) H 07/14/16 12:18
[2016-07-15 09:45] LABS: INR 1.3; Prothrombin Time 13.6 Seconds (9.4-12.1)
--- NOTE | 2016-07-15 11:12 | Gastroenterology Consult Note ---
<Johnnie Dupree - Last Filed: 07/15/16 11:09> Date of Encounter: 07/15/16 Time of Encounter: 09:55 - Assessment and plan (1) Cirrhosis Current Visit: No Status: Chronic Assessment and plan: MELD-Na 21, Child-Kim class C, DF 16.6. Continue Rifaximin, Zinc, and Lactulose. Titrate Lactulose to 2-4 BM daily. AFP 1 on 03/02/2016. RUQ US 2016 showed cirrhosis with no lesion. Qualifiers: Hepatic cirrhosis type: unspecified hepatic cirrhosis Ascites presence: with ascites Qualified Code(s): K74.60 - Unspecified cirrhosis of liver (2) Anemia Current Visit: No Status: Chronic Assessment and plan: Hgb prior to paracentesis yesterday 5.6, and she has received 2 units PRBC. Continue to monitor CBC and transfuse PRBC as needed. Flex sig 04/14/2011 showed internal hemorrhoids. EGD 04/14/16 with non-bleeding esophageal ulcer. Will hold on any scopes at this time. 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 (4) Ascites Current Visit: No Status: Chronic Assessment and plan: Pt completes paracentesis weekly. Paracentesis not completed yesterday, plan for paracentesis today. Unable to use Lasix d/t CKD. Continue Midodrine 2.5 mg TID Qualifiers: Ascites type: other type Qualified Code(s): R18.8 - Other ascites (5) Hepatic encephalopathy Current Visit: No Status: Chronic Assessment and plan: Secondary to cirrhosis. Continue Rifaximin on discharge 550 mg BID while outpatient. Continue Lactulose and titrate to 2-4 BM daily. - Time Spent With Patient Total time spent is greater than 50% in coordination of care (as documented) at patient's floor/unit and/or counseling patient: GI History of Present Illness - Data of Consult Patient: known to practice within the last 3 years Consult date: 05/31/17 Requesting Physician: Rafael Jenkins MD - Consult Narrative Reason for consult: anemia History of present illness: Ms. Flores is a 76 year old female with PMHx of cirrhosis, recurrent hepatic encephalopathy, pancytopenia, CKD stage III, T2DM, CKD, HTN, COPD. She receives paracentesis which are scheduled every week. She has a history of grade 2 esophageal varices which were previously banded. The patient presented to the ED from interventional radiology. She was scheduled for a paracentesis and was found to have a hemoglobin of 5.6. She denies fever, chills, chest pain , SOB, abdominal pain, nausea, vomiting. Fecal occult blood test positive in the ED. She has received 2 units PRBC. Procedures: Flexible sigmoidoscopy 04/14/2016 with internal hemorrhoids. EGD 04/14/2016 with nonbleeding esophageal ulcer, portal hypertensive gastropathy Colonoscopy 09/01/2013: With tubulovillous adenoma, poor prep. EGD 10/10/2015 with grade 2 esophageal varices, completely eradicated, banded. Portal hypertensive gastropathy. EGD 04/30/2015 with grade 2 varices, banded, portal hypertensive gastropathy NSAID: ASA Anticoagulation: None Past Med Surg Social Fam HX - Past Medical History Medical history: arthritis, cirrhosis, COPD, dementia, diabetes, GERD, glaucoma , hepatitis, hyperlipidemia, hypertension, liver disease, osteoporosis, renal disease, thyroid disease Psychiatric history: no psych history - Past Surgical History Surgical History: herniorrhaphy - Social History Smoking Status: Never smoker Smokeless Tobacco Status: No Alcohol use: none Drug use: none - Family History Sister Adopted: No Living Status: Hx Family Cardiac Disorders: Yes Hx Family Respiratory Disorders: Yes Hx Family Cancer: Yes Hx Family GI Disorders: Yes (cirrhosis) Hx Family Endocrine Disorder: No Hx Family Neuromuscular Disorders: No Hx Family Neurologic Disorders: No Hx Family HEENT Disorders: No Hx Family Autoimmune Disorders: No Mother Adopted: No Family Member Ethnicity: Non- Living Status: Hx Family Cardiac Disorders: Yes Father Hx Family Cardiac Disorders: Yes (MYOCARDIAL INFARCTION.) Son Adopted: No Family Member Ethnicity: Non- Living Status: Still Living Hx Family Cardiac Disorders: Yes (HTN) Hx Family Respiratory Disorders: No Hx Family Cancer: No Hx Family GI Disorders: No Hx Family Endocrine Disorder: No Hx Family Neuromuscular Disorders: No Hx Family Neurologic Disorders: No Hx Family HEENT Disorders: No Hx Family Autoimmune Disorders: No - Gastrointestinal Gastrointestinal: Present: as per HPI - Constitutional Constitutional: as per HPI - EENT Eyes: as per HPI Ears: Present: as per HPI Nose, mouth and throat: Present: as per HPI - Cardiovascular Cardiovascular ROS: Present: as per HPI - Respiratory Respiratory IM: Present: as per HPI - Genitourinary Genitourinary: Absent: change in color, Urinary frequency - Neurological ROS Neurological GI: Present: as per HPI - Hematologic/Lymphatic Hematologic/Lymphatic pediatric: Present: as per HPI - Musculoskeletal Musculoskeletal ROS GI: Present: as per HPI - Integumentary Integumentary GI: Present: as per HPI - Psychiatric ROS Psychiatric GI: Present: as per HPI - Endocrine Endocrine IM: Present: as per HPI - Constitutional Vitals: Temp Pulse Resp BP Pulse Ox 98.1 F 77 17 136/60 100 07/15/16 07:32 07/15/16 07:32 07/15/16 07:32 07/15/16 07:32 07/15/16 08:00 General appearance: Present: cooperative, A&O X 3, no acute distress, answers questions appropriately - Head Head exam: Present: atraumatic, normocephalic - Eye Eye exam: Present: normal appearance, sclera anicteric - ENT ENT exam: Present: mucous membranes moist - Neck Neck exam general surgery: Present: normal inspection, trachea midline - Respiratory Respiratory exam: Present: CTAB. Absent: rales, rhonchi - Cardiovascular Cardiovascular exam: Present: RRR, +S1, +S2 - GI/Abdominal GI/Abdominal exam: Present: distended, firm, soft, no peritoneal signs. Absent : guarding, tenderness - Expanded GI/Abdominal Exam GI/Abdominal exam expanded: Present: ascites - Rectal Rectal exam: Present: deferred - Extremities Exam Extremities exam: Present: warm - Neurological Exam Neurological exam: Present: no focal deficits - Psychiatric Psychiatric exam: Present: normal affect, normal mood - Skin Skin exam: Present: dry, intact, normal color, warm Results - Labs CBC & Chem 7: 07/15/16 05:15 07/15/16 04:05 Labs: Last Result Calcium 8.1 mg/dL (8.6-10.8) L 07/15/16 04:05 Stool Occult Blood Positive (Negative) A 07/14/16 12:30 Entire Visit Hgb 7.5 g/dL (11.5-15.4) L D 07/15/16 05:15 Hct 24.2 % (35.3-44.9) L 07/15/16 05:15 PT 13.6 Seconds (9.4-12.1) H 07/15/16 09:27 Total Bilirubin 2.3 mg/dL (0.2-1.2) H 07/15/16 04:05 AST 36 Units/L (5-34) H 07/15/16 04:05 ALT 20 Units/L (0-55) 07/15/16 04:05 - ABG ABG results: PT/INR, D-dimer PT 13.6 Seconds (9.4-12.1) H 07/15/16 09:27 Consult Discharge Plan - Plan Referrals: Travis Deng Jr, MD [Primary Care Provider] - <Elvira Styles - Last Filed: 07/15/16 17:51> Date of Encounter: 07/15/16 Time of Encounter: 15:00 - Time Spent With Patient Total time spent is greater than 50% in coordination of care (as documented) at patient's floor/unit and/or counseling patient: GI History of Present Illness - Data of Consult Requesting Physician: Rafael Jenkins MD - Consult Narrative History of present illness: Ms. Flores is a 76 year old female - Constitutional Vitals: Temp Pulse Resp BP Pulse Ox 97.6 F 66 16 123/55 97 07/15/16 15:46 07/15/16 15:46 07/15/16 15:46 07/15/16 15:46 07/15/16 15:46 Results - Labs CBC & Chem 7: 07/15/16 12:25 07/15/16 04:05 Labs: Last Result Calcium 8.1 mg/dL (8.6-10.8) L 07/15/16 04:05 Stool Occult Blood Positive (Negative) A 07/14/16 12:30 Entire Visit Hgb 7.2 g/dL (11.5-15.4) L 07/15/16 12:25 Hct 22.9 % (35.3-44.9) L 07/15/16 12:25 PT 13.6 Seconds (9.4-12.1) H 07/15/16 09:27 Total Bilirubin 2.3 mg/dL (0.2-1.2) H 07/15/16 04:05 AST 36 Units/L (5-34) H 07/15/16 04:05 ALT 20 Units/L (0-55) 07/15/16 04:05 - ABG ABG results: PT/INR, D-dimer PT 13.6 Seconds (9.4-12.1) H 07/15/16 09:27 - Attending Attestation I examined this patient and my medical decision-making was reviewed with the ACID MIXER/PA/Advanced Practice Nurse/Resident Physician. I agree with the documented findings, disposition and treatment plan as described except to the extent set forth below.
[2016-07-15 12:37] LABS: Hematocrit 22.9 % (35.3-44.9); Hemoglobin 7.2 g/dL (11.5-15.4); Mean Corpuscular HGB Conc 31.4 g/dL (31.6-35.5); Mean Corpuscular Hemoglobin 29.9 pg (28.0-33.3); Red Blood Count 2.41 M/mcL (3.82-4.97); Red Cell Distribution Width 19.9 % (11.5-14.5)
[2016-07-15 12:38] LABS: Platelet Count 51 K/mcL (140-400)
[2016-07-15] MEDS ORDERED: *HR* HYDROcodone/Acet 5/325 mg TABLET PO PRN (12:38)
--- NOTE | 2016-07-15 14:15 | IR Procedure Note ---
Date of procedure: 07/15/16 Consent Obtained: Written consent Timeout: Correct patient and procedure verified, Correct site verified, Time out performed, Skin prep completed Local anesthetic: Lidocaine 1% Indications: Ascites, cirrhosis Procedure Performed: Paracentesis Site/Technique: LLQ access Results/Findings: Still draining straw colored fluid Estimated blood loss (cc): 1 Complications: None; Tolerated procedure well Post Procedure Treatment Plan: Monitoring in pts room
[2016-07-15] MEDS ORDERED: Dextrose Gel 15 GM PO PRN ×2 (14:46)
[2016-07-15] MEDS ORDERED: D5% in Water 1,000 ML IVC PRN (14:46)
[2016-07-15] MEDS ORDERED: *HR* Dextrose 50 % in Water (Syg) 50 ML SYRINGE IVP PRN (14:46)
[2016-07-15] MEDS: Insulin LISPRO 300 UNITS/3 ML VIAL SQ SCH (17:22)
[2016-07-15 18:30] LABS: Hemoglobin 7.2 g/dL (11.5-15.4)
[2016-07-15 18:39] LABS: Hematocrit 22.5 % (35.3-44.9); Mean Corpuscular Hemoglobin 30.1 pg (28.0-33.3); Mean Corpuscular Volume 94.1 fL (83.0-100.0); Mean Platelet Volume 12.6 fL (9.4-12.4); Red Blood Count 2.39 M/mcL (3.82-4.97); Red Cell Distribution Width 19.9 % (11.5-14.5)
[2016-07-15 19:01] LABS: Platelet Count 52 K/mcL (140-400)
[2016-07-15 19:03] LABS: Basophils # 0.1 K/mcL (0.0-0.2); Eosinophils # 0.1 K/mcL (0.0-0.6); Lymphocytes # 0.6 K/mcL (0.6-4.6); Monocytes # 0.2 K/mcL (0.0-1.3); Neutrophils # 1.9 K/mcL (1.6-8.9)
[2016-07-15 19:04] LABS: Anisocytosis 1+ (Not Present); Hypochromasia Present (Not Present); Platelet Estimate Decreased (Normal)
[2016-07-15] MEDS ORDERED: Insulin LISPRO 300 UNITS/3 ML VIAL SQ SCH (21:00)
[2016-07-16 04:48] LABS: Basophils % 0.6 %; Eosinophils # 0.3 K/mcL (0.0-0.6); Eosinophils % 5.2 %; Hematocrit 24.6 % (35.3-44.9); Hemoglobin 7.7 g/dL (11.5-15.4); Immature Granulocytes % 0.4 % (0-4); Immature Platelets 6.5 % (1.1-6.1); Lymphocytes % 21.3 %; Mean Corpuscular HGB Conc 31.3 g/dL (31.6-35.5); Mean Corpuscular Hemoglobin 29.6 pg (28.0-33.3); Mean Corpuscular Volume 94.6 fL (83.0-100.0); Mean Platelet Volume 12.6 fL (9.4-12.4); Monocytes # 0.7 K/mcL (0.0-1.3); Monocytes % 15.5 %; Neutrophils # 2.7 K/mcL (1.6-8.9); Red Cell Distribution Width 19.6 % (11.5-14.5)
[2016-07-16 04:51] LABS: Calcium 7.9 mg/dL (8.6-10.8)
[2016-07-16 04:55] LABS: Platelet Count 61 K/mcL (140-400)
[2016-07-16] MEDS: Pantoprazole 40 MG VIAL IVP SCH (05:11)
[2016-07-16 05:13] LABS: Platelet Estimate Decreased (Normal)
[2016-07-16 05:14] LABS: Anisocytosis 2+ (Not Present); Hypochromasia Present (Not Present); Large Platelets Present (Not Present)
[2016-07-16] MEDS: Insulin LISPRO 300 UNITS/3 ML VIAL SQ SCH ×2 (09:35→12:11)
[2016-07-16] MEDS: Zinc Sulfate 220 MG CAPSULE PO SCH (09:35)
[2016-07-16] MEDS: Sucralfate 1 GM TABLET PO SCH ×2 (09:35→13:59)
[2016-07-16] MEDS: Insulin DETEMIR 100 UNIT/ML X5UNITS SQ SCH (09:37)
--- NOTE | 2016-07-16 09:39 | Discharge Summary ---
<Trevor Alston - Last Filed: 07/16/16 10:25> Date of Encounter: 07/16/16 Time of Encounter: 09:37 - Discharge Diagnosis (1) GI bleeding Priority: Primary Status: Acute Qualifiers: GI bleed type/associated pathology: unspecified gastrointestinal hemorrhage type Qualified Code(s): K92.2 - Gastrointestinal hemorrhage, unspecified (2) Cirrhosis Priority: Secondary Status: Chronic Qualifiers: Hepatic cirrhosis type: alcoholic cirrhosis Ascites presence: with ascites Qualified Code(s): K70.31 - Alcoholic cirrhosis of liver with ascites (3) DVT prophylaxis Priority: Secondary Status: Acute - Discharge Medications Home Medications: Cholecalciferol (Vitamin D3) [Vitamin D3] 50,000 unit PO WESA 11/02/14 [History] Magnesium Oxide [Magnesium] 400 mg PO BID 11/02/14 [History] Aspirin 81 mg PO DAILY 30 Days 11/08/14 [Rx] Ipratropium/Albuterol Neb [Duoneb] 3 ml IH Q4HR PRN 04/26/15 [History] Rifaximin [Xifaxan] 550 mg PO BID #60 tablet 05/01/15 [Rx] Cyanocobalamin (Vitamin B-12) [Vitamin B12] 1,000 mcg PO 2XW 09/03/15 [History] Zinc Sulfate 220 mg PO BID 09/03/15 [History] Insulin DETEMIR [Levemir Flextouch] 26 unit SQ BID 10/07/15 [History] Insulin LISPRO [Humalog Kwikpen U-100] 0 unit SQ ACHS 10/07/15 [History] Lactulose 15 ml PO TID PRN 10/07/15 [History] Levothyroxine [Synthroid] 100 mcg PO QAM 10/07/15 [History] Oxygen 2 l NS AD 12/22/15 [History] Ondansetron ODT [Zofran ODT] 4 mg SL TID PRN 04/02/16 [History] raNITIdine HCl [Ranitidine HCl] 150 mg PO BID 04/02/16 [History] Diclofenac Sodium 1 appl TP QID PRN 04/09/16 [History] Sucralfate [Carafate] 1 gm PO QIDAC 30 Days 04/15/16 [Rx] Midodrine HCl 2.5 mg PO TID 05/19/16 [History] HYDROcodone/Acet 5/325 mg [[place] 5-325 mg] 1 tab PO Q8H PRN 07/14/16 [History] Pantoprazole Sodium [Protonix] 40 mg PO DAILY 07/14/16 [History] Allergies/Adverse Reactions: Allergies No Known Allergies Allergy (Verified 07/14/16 11:53) Procedures/tests Complete & Pending: Procedures Performed prior 72 hours Category Date Time Status IR paracentesis ultrasound [IR] Routine IR 07/15/16 11:22 Completed Date of admission: 07/14/16 14:19 Primary care physician: Travis Deng Jr, MD Consults: 07/14/16 14:27 Consult to Gastroenterology [CONS] Routine Consulting Provider: [facility] Reason for Consult: Hb 5.6 with stool OB positive in a patient with cirrhosis Call Completed: Yes Discharging clinician: Trevor Alston Anticipated date of discharge: 07/16/16 - Patient Status Disposition: Home, Self-Care Condition: Fair Functional capacity at discharge: uses cane/walker Overall status at discharge: patient is progressing back to baseline - Discharge Instructions Instructions: Anemia (GEN) Follow Up With: Travis Deng Jr, MD [Primary Care Provider] - 07/17/16 11:00 am Additional Instructions: Please return to your if you have the following: Bloody bowel movements, bloody vomiting, black stools, worsening weakness, chest pain, abdominal pain, fevers, nausea or vomiting diarrhea, confusion. Please continue weekly paracentesis. - Diet and Activity Activity: ambulate only with your walker Diet: diabetic diet Interval History: 68-year-old female history of cirrhosis, pancytopenia, CK 83, hepatic encephalopathy presented from IR office. Patient receives paracentesis weekly on Tuesdays. Patient was found to have hemoglobin of 5.6. Patient has a history of grade 2 esophageal varices which were banded on 10/10/2015. At this time she denied nausea, vomiting, abdominal pain, fevers, chills. She does state she had shortness of breath. Patient had a positive fecal occult blood test in the ED. Patient is a flexible sigmoidoscopy on 04/14/2016 with findings of internal hemorrhoids. Patient EGD on 04/14/2016 with findings of nonbleeding esophageal ulcer and portal hypertensive gastropathy, no varices noted. Hospital course: Patient received 2 units of packed red blood cells and her BP increased to 7.7 and has remained stable over the past 24 hours. She underwent paracentesis and had removal of 5L removed. GI was consulted and stated patient does not need any procedural intervention. Patient should continue rifaximin, zinc and lactulose. Lactulose should be titrated to 2-4 bowel movements daily.AFP was 1 on 03/02/2016 and RUQ US showed cirrhosis with no lesion on 03/04/2016. Patient should continue weekly paracentesis. Continue midodrine 2.5 mg 3 times a day. Patient states her shortness of breath is improved, her weakness has improved as well. She is able to tolerate her diet. Patient ambulates with her walker. She has no other complaints. Patient is stable for discharge. - Time Spent with Patient Total time spent providing and/or coordinating discharge services: - Constitutional Vitals: Temp Pulse Resp BP Pulse Ox 97.9 F 78 15 124/58 96 07/16/16 06:54 07/16/16 06:54 07/16/16 06:54 07/16/16 06:54 07/16/16 06:54 General appearance: Present: A&O X 3, pleasant, no acute distress, answers questions appropriately - Head Head exam: Present: atraumatic, normocephalic - Eye Eye exam: Present: PERRL, conjuntiva pink, sclera anicteric - Neck Neck exam general surgery: Present: supple, trachea midline. Absent: lymphadenopathy - Respiratory Respiratory exam: Present: CTAB. Absent: accessory muscle use, rales, rhonchi, wheezes - Cardiovascular Cardiovascular exam: Present: RRR, +S1, +S2. Absent: diastolic murmur, gallop, rubs, systolic murmur - GI/Abdominal GI/Abdominal exam: Present: distended (improved from yesterday), hernia (mid abdomial hernia), normal bowel sounds, soft, no peritoneal signs. Absent: tenderness - Extremities Exam Extremities exam: Present: warm, radial pulses palpable and symetrical. Absent : calf tenderness, cyanotic, pedal edema - Neurological Exam Neurological exam: Present: CN II-XII intact, oriented X3, no focal deficits. Absent: pronater drift, facial droop, speech deficit - Skin Skin exam: Present: dry, intact <Alice,Rafael P - Last Filed: 07/20/16 17:43> Date of Encounter: 07/20/16 - Discharge Diagnosis (1) GI bleeding Status: Acute Qualifiers: GI bleed type/associated pathology: unspecified gastrointestinal hemorrhage type Qualified Code(s): K92.2 - Gastrointestinal hemorrhage, unspecified (2) Shortness of breath Status: Acute (3) Hypertension Status: Acute Qualifiers: Hypertension type: essential hypertension Qualified Code(s): I10 - Essential (primary) hypertension (4) Cirrhosis Status: Chronic Qualifiers: Hepatic cirrhosis type: alcoholic cirrhosis Ascites presence: with ascites Qualified Code(s): K70.31 - Alcoholic cirrhosis of liver with ascites Procedures/tests Complete & Pending: Procedures Performed prior 72 hours Category Date Time Status IR paracentesis ultrasound [IR] Routine IR 07/15/16 11:22 Completed Date of admission: 07/14/16 14:19 Primary care physician: Travis Deng Jr, MD Consults: 07/14/16 14:27 Consult to Gastroenterology [CONS] Routine Consulting Provider: [facility] Reason for Consult: Hb 5.6 with stool OB positive in a patient with cirrhosis Call Completed: Yes Hospital course: Ms. Flores is a 76 year old female - Time Spent with Patient Total time spent providing and/or coordinating discharge services: - Constitutional Vitals: Temp Pulse Resp BP Pulse Ox 97.9 F 70 15 128/61 98 07/16/16 11:00 07/16/16 11:00 07/16/16 11:00 07/16/16 11:00 07/16/16 11:00 - Attending Attestation I examined this patient and my medical decision-making was reviewed with the FIRE BATTALION CHIEF/PA/Advanced Practice Nurse/Resident Physician. I agree with the documented findings, disposition and treatment plan as described except to the extent set forth below. home today follow up with PCP/GI
[2016-07-16 11:33] VITALS: BP 128/61
--- NOTE | 2016-07-16 11:49 | Physician Discharge Referral ---
<Rafael Jenkins P - Last Filed: 07/16/16 13:54> - Diagnosis (1) GI bleeding Status: Acute (2) Shortness of breath Status: Acute (3) Hypertension Status: Acute (4) Cirrhosis Status: Chronic - Respiratory Orders Smoking Cessation: Smoking cessation has been advised. For more information, call the [place] Tobacco Quit Line at 6-701-NHMA-NOW. - Transfer Medications Home Medications: Cholecalciferol (Vitamin D3) [Vitamin D3] 50,000 unit PO WESA 11/02/14 [History] Magnesium Oxide [Magnesium] 400 mg PO BID 11/02/14 [History] Aspirin 81 mg PO DAILY 30 Days 11/08/14 [Rx] Ipratropium/Albuterol Neb [Duoneb] 3 ml IH Q4HR PRN 04/26/15 [History] Rifaximin [Xifaxan] 550 mg PO BID #60 tablet 05/01/15 [Rx] Cyanocobalamin (Vitamin B-12) [Vitamin B12] 1,000 mcg PO 2XW 09/03/15 [History] Zinc Sulfate 220 mg PO BID 09/03/15 [History] Insulin DETEMIR [Levemir Flextouch] 26 unit SQ BID 10/07/15 [History] Insulin LISPRO [Humalog Kwikpen U-100] 0 unit SQ ACHS 10/07/15 [History] Lactulose 15 ml PO TID PRN 10/07/15 [History] Levothyroxine [Synthroid] 100 mcg PO QAM 10/07/15 [History] Oxygen 2 l NS AD 12/22/15 [History] Ondansetron ODT [Zofran ODT] 4 mg SL TID PRN 04/02/16 [History] raNITIdine HCl [Ranitidine HCl] 150 mg PO BID 04/02/16 [History] Diclofenac Sodium 1 appl TP QID PRN 04/09/16 [History] Sucralfate [Carafate] 1 gm PO QIDAC 30 Days 04/15/16 [Rx] Midodrine HCl 2.5 mg PO TID 05/19/16 [History] HYDROcodone/Acet 5/325 mg [[place] 5-325 mg] 1 tab PO Q8H PRN 07/14/16 [History] Pantoprazole Sodium [Protonix] 40 mg PO DAILY 07/14/16 [History] Allergies/Adverse Reactions: Allergies No Known Allergies Allergy (Verified 07/14/16 11:53) Certification: Further, I certify that my clinical findings support that this patient is homebound (i.e. absences from home require considerable and taxing effort and are for medical reasons or spiritism services or infrequently or short duration when for other reasons) because: Attestation: My signature below is to certify that this patient is under my care and that I, or nurse practitioner, or a physician's general office assistant working with me, has a face-to -face encounter with this patient. <Trevor Alston - Last Filed: 07/16/16 15:25> Home Health/Hosp Referral Info Transfer to: Home Health Attending Provider: Dr. Jenkins Provider in Charge Post Discharge: PCP - Diagnosis (1) GI bleeding Priority: Primary Status: Acute (2) Cirrhosis Priority: Secondary Status: Chronic (3) DVT prophylaxis Priority: Secondary Status: Acute - Respiratory Orders Smoking Cessation: Smoking cessation has been advised. For more information, call the [place] Tobacco Quit Line at 1-014-TKKM-NOW. - Activity Activity Orders: Chair, Walker - Services Needed Following services are medically necessary services: Home Health Aide Certification: Further, I certify that my clinical findings support that this patient is homebound (i.e. absences from home require considerable and taxing effort and are for medical reasons or spiritism services or infrequently or short duration when for other reasons) because: Homebound Reason: Patient requires assistance of a person or device to safely leave home Attestation: My signature below is to certify that this patient is under my care and that I, or nurse practitioner, or a physician's general office assistant working with me, has a face-to -face encounter with this patient.
== END 2016-07-16 16:30 | disposition home or self-care (01) | DRG 378 ==
LOC: EMEROO 11:43 → 2NENU 11:43
PROVIDERS: ADMIT Internal Medicine Endocrinology, Diabetes & Metabolism; ATTEND Internal Medicine

== ENCOUNTER 2016-07-24 16:34 | Inpatient (IN) ==
[2016-07-24 17:57] LABS: Hematocrit 21.6 % (35.3-44.9); Immature Granulocytes % 0.3 % (0-4); Immature Platelets 4.7 % (1.1-6.1); Lymphocytes % 16.6 %; Mean Corpuscular HGB Conc 30.1 g/dL (31.6-35.5); Mean Corpuscular Hemoglobin 29.8 pg (28.0-33.3); Mean Corpuscular Volume 99.1 fL (83.0-100.0); Mean Platelet Volume 11.7 fL (9.4-12.4); Red Blood Count 2.18 M/mcL (3.82-4.97); Red Cell Distribution Width 18.7 % (11.5-14.5); Segmented Neutrophils % 61.6 %
[2016-07-24 17:58] LABS: Basophils % 0.3 %; Eosinophils # 0.2 K/mcL (0.0-0.6); Eosinophils % 5.2 %; Lymphocytes # 0.5 K/mcL (0.6-4.6); Monocytes # 0.5 K/mcL (0.0-1.3); Neutrophils # 1.9 K/mcL (1.6-8.9)
[2016-07-24 18:10] LABS: Bilirubin,Total 1.3 mg/dL (0.2-1.2); Calcium 8.5 mg/dL (8.6-10.8); Globulin 2.9 g/dL (2.4-3.5); Magnesium 2.5 mg/dL (1.6-2.6); Potassium 6.4 mEq/L (3.5-4.5); Total Protein 5.9 g/dL (6.0-8.3)
[2016-07-24 18:11] LABS: Hemoglobin 6.5 g/dL (11.5-15.4); Platelet Count 52 K/mcL (140-400)
[2016-07-24] MEDS ORDERED: Calcium Gluconate 1,000 MG in D5% in Water 100 ML IVPB ONE (18:18)
[2016-07-24] MEDS ORDERED: 0.9 % Sodium Chloride 1,000 ML IVC ONE (18:20)
--- NOTE | 2016-07-24 18:32 | Emergency Department Note ---
Disposition Clinical Impression: Hyperkalemia, Chronic kidney disease, stage IV (severe), Acute on chronic renal insufficiency, Dehydration, Frail elderly Anemia Qualifiers: Anemia type: unspecified type Qualified Code(s): D64.9 - Anemia, unspecified Disposition: Admitted As Inpatient Condition: Critical Time of Disposition: 20:32 General Adult HPI - General Chief complaint: ED Recheck/Abnormal Lab/Rx Stated complaint: abnormal labs, sent by Dr Styles Time Seen by Provider: 07/24/16 16:52 Source: patient Mode of arrival: wheelchair Limitations: no limitations Nursing Notes Reviewed: Yes Vital Signs Reviewed: Yes - History of Present Illness HPI Narrative: Mrs. Flores, a 76yo female, presents from home by POV where she was called by her gastrointerologist, Dr. Styles, for abnormal lab levels. Labs drawn this AM indicated anemia. She is followed by Dr. Styles for cirrhosis with ascites requiring weekly paracentesis as well as a chronic gastric ulcer. Patient was recently discharged from this facility where she received transfusions. PMH: Nonalcoholic cirrhosis. CKD III, insulin dependent diabetes. History of anemia, history hepatic encephalopathy, history UTI. No history of hepatitis. ROS: Positive: Unusual weakness, nausea Negative: Fever, chills, chest pains, palpitations, back pains, abdominal pains , dizziness, confusion Pain Scale: 0 - Related Data Home Medications Medication Instructions Recorded Confirmed Cholecalciferol (Vitamin D3) 50,000 unit PO WESA 11/02/14 07/24/16 [Vitamin D3] Magnesium Oxide [Magnesium] 400 mg PO BID 11/02/14 07/24/16 Ipratropium/Albuterol Neb [Duoneb] 3 ml IH Q4HR PRN 04/26/15 07/24/16 Cyanocobalamin (Vitamin B-12) 1,000 mcg PO 2XW 09/03/15 07/24/16 [Vitamin B12] Zinc Sulfate 220 mg PO BID 09/03/15 07/24/16 Insulin DETEMIR [Levemir Flextouch] 26 unit SQ BID 10/07/15 07/24/16 Insulin LISPRO [Humalog Kwikpen 0 unit SQ ACHS 10/07/15 07/24/16 U-100] Lactulose 15 ml PO TID PRN 10/07/15 07/24/16 Levothyroxine [Synthroid] 100 mcg PO QAM 10/07/15 07/24/16 Oxygen 2 l NS AD 12/22/15 07/24/16 Ondansetron ODT [Zofran ODT] 4 mg SL TID PRN 04/02/16 07/24/16 raNITIdine HCl [Ranitidine HCl] 150 mg PO BID 04/02/16 07/24/16 Diclofenac Sodium 1 appl TP QID PRN 04/09/16 07/24/16 Midodrine HCl 2.5 mg PO TID 05/19/16 07/24/16 HYDROcodone/Acet 5/325 mg [[place] 1 tab PO Q8H PRN 07/14/16 07/24/16 5-325 mg] Pantoprazole Sodium [Protonix] 40 mg PO DAILY 07/14/16 07/24/16 Previous Rx's Medication Instructions Recorded Aspirin 81 mg PO DAILY 30 Days 11/08/14 Rifaximin [Xifaxan] 550 mg PO BID #60 tablet 05/01/15 Sucralfate [Carafate] 1 gm PO QIDAC 30 Days 04/15/16 Allergies Allergy/AdvReac Type Severity Reaction Status Date / Time No Known Allergies Allergy Verified 07/14/16 11:53 All systems ED: reviewed and negative except as stated. Past Medical History - Past Medical History Medical history: Reports: arthritis, cirrhosis, COPD, dementia, diabetes, GERD, glaucoma, hepatitis, hyperlipidemia, hypertension, liver disease, osteoporosis, renal disease, thyroid disease Surgical history: Reports: herniorrhaphy Psychiatric history: Reports: no psych history CHAIR FRAME BUILDER history: Reports: no CHAIR FRAME BUILDER history - Social History Smoking Status: Never smoker Smokeless Tobacco Status: No Alcohol use: Reports: none Drug use: Reports: none Physical Exam Vital Signs Reviewed General: Patient is alert, oriented, and in no acute distress. She appears frail and cachectic with an enlarged abdomen. HEENT: No facial asymmetry. Head is normocephalic and atraumatic. PERRLA. Oral mucosa dry. Conjunctiva pale. Cardiovascular: Heart regular rate and rhythm without clicks, rubs, gallops, or murmurs. No JVD. PMI nondisplaced. Respiratory: Symmetric chest rise with good respiratory effort. Bilateral breath sounds are clear without wheezing, crackles, or rhonchi. Abdomen: Bowel sounds present normoactive x-4 quadrants. Abdomen is soft, distended, and nontender. Unable to assess organomegaly secondary to patient's body habitus. Rectal: no observed or palpated hemorrhoids. Brown stool on gloved finger. FOBT submitted. Neuro: Sensation light touch intact. Psych: Patient's affect is appropriate for situation. - General General appearance: alert, in no apparent distress Course Course Narrative: Repeat CBC shows patient's hemoglobin 6.5 now dropped from 6.9 this morning. Will type and screen and begin 3 unit transfusion. Patient also has hyperkalemia at 6.4 without EKG changes. Will begin calcium gluconate and Kayexalate. Patient is emotionally despondent; crying during the discussion for admission. I informed her of her elevated potassium which can cause fatal arrhythmia as well as her ongoing and worsening anemia which has multiple sequelae including possible provocation of cardiac ischemia. Though she and her son agree to the necessity of Coumadin, she emotionally does not wish to spend more time in the hospital. Consent for transfusion obtained and on file. I spoke with Dr. Styles agrees to current management plan has no additional recommendations at this time. He agrees to hospitalist admission with him following. Consult order placed. FOBT surprisingly negative. Patient remains asymptomatic and stable. I discussed her with the admitting hospitalist who agrees to accept her and has no additional questions at this time. Vital Signs Temperature 98.1 F 07/24/16 16:46 Pulse Rate 77 07/24/16 16:46 Respiratory Rate 18 07/24/16 16:46 Blood Pressure 143/68 07/24/16 16:46 O2 Sat by Pulse Oximetry 97 07/24/16 16:46 Temperature 97.9 F 07/24/16 23:15 Pulse Rate 76 07/24/16 23:15 Respiratory Rate 18 07/24/16 23:15 Blood Pressure 131/69 07/24/16 23:15 O2 Sat by Pulse Oximetry 100 07/24/16 23:15 Oxygen Delivery Oxygen Delivery Nasal Cannula Medical Decision Making - Medical Records Medical records reviewed: Yes I reviewed the patient's medical records. - Lab Data Lab results reviewed: Yes I reviewed the patient's lab results. Result diagrams: 07/24/16 17:49 07/24/16 21:25 Lab Results 07/24/16 07/24/16 07/24/16 Range/Units 17:49 17:49 17:49 WBC 3.1 L (4.3-11.1) K/mcL RBC 2.18 L (3.82-4.97) M/mcL Hgb 6.5 L (11.5-15.4) g/dL Hct 21.6 L (35.3-44.9) % MCV 99.1 (83.0-100.0) fL MCH 29.8 (28.0-33.3) pg MCHC 30.1 L (31.6-35.5) g/dL RDW 18.7 H (11.5-14.5) % Plt Count 52 L (140-400) K/mcL MPV 11.7 (9.4-12.4) fL Immature Gran % 0.3 (0-4) % Seg Neutrophils % 61.6 % Lymphocytes % 16.6 % Monocytes % 16.0 % Eosinophils % 5.2 % Basophils % 0.3 % Neutrophils # 1.9 (1.6-8.9) K/mcL Lymphocytes # 0.5 L (0.6-4.6) K/mcL Monocytes # 0.5 (0.0-1.3) K/mcL Eosinophils # 0.2 (0.0-0.6) K/mcL Basophils # 0.0 (0.0-0.2) K/mcL Immature Plt Fraction 4.7 (1.1-6.1) % Sodium 140 (136-145) mEq/L Potassium 6.4 H (3.5-4.5) mEq/L Chloride 115 H (98-109) mEq/L Carbon Dioxide 19 (19-29) mEq/L BUN 60 H (7-20) mg/dL Creatinine 2.56 H (0.57-1.11) mg/dL Est GFR ( Amer) 22 L (> 60) Est GFR (Non-Af Amer) 18 L (> 60) BUN/Creatinine Ratio 23 (6-26) Glucose 174 H (70-99) mg/dL Calculated Osmolality 311 H (280-300) Calcium 8.5 L (8.6-10.8) mg/dL Magnesium 2.5 (1.6-2.6) mg/dL Total Bilirubin 1.3 H (0.2-1.2) mg/dL AST 31 (5-34) Units/L ALT 20 (0-55) Units/L Alkaline Phosphatase 143 H (38-126) Units/L Serum Total Protein 5.9 L (6.0-8.3) g/dL Albumin 3.0 L (3.5-5.0) g/dL Globulin 2.9 (2.4-3.5) g/dL Albumin/Globulin Ratio 1.0 L (1.1-2.2) Stool Occult Blood (Negative) Blood Type O POSITIVE Antibody Screen NEGATIVE CHON, Poly Interpret NEG Crossmatch See Detail 07/24/16 Range/Units 18:24 WBC (4.3-11.1) K/mcL RBC (3.82-4.97) M/mcL Hgb (11.5-15.4) g/dL Hct (35.3-44.9) % MCV (83.0-100.0) fL MCH (28.0-33.3) pg MCHC (31.6-35.5) g/dL RDW (11.5-14.5) % Plt Count (140-400) K/mcL MPV (9.4-12.4) fL Immature Gran % (0-4) % Seg Neutrophils % % Lymphocytes % % Monocytes % % Eosinophils % % Basophils % % Neutrophils # (1.6-8.9) K/mcL Lymphocytes # (0.6-4.6) K/mcL Monocytes # (0.0-1.3) K/mcL Eosinophils # (0.0-0.6) K/mcL Basophils # (0.0-0.2) K/mcL Immature Plt Fraction (1.1-6.1) % Sodium (136-145) mEq/L Potassium (3.5-4.5) mEq/L Chloride (98-109) mEq/L Carbon Dioxide (19-29) mEq/L BUN (7-20) mg/dL Creatinine (0.57-1.11) mg/dL Est GFR ( Amer) (> 60) Est GFR (Non-Af Amer) (> 60) BUN/Creatinine Ratio (6-26) Glucose (70-99) mg/dL Calculated Osmolality (280-300) Calcium (8.6-10.8) mg/dL Magnesium (1.6-2.6) mg/dL Total Bilirubin (0.2-1.2) mg/dL AST (5-34) Units/L ALT (0-55) Units/L Alkaline Phosphatase (38-126) Units/L Serum Total Protein (6.0-8.3) g/dL Albumin (3.5-5.0) g/dL Globulin (2.4-3.5) g/dL Albumin/Globulin Ratio (1.1-2.2) Stool Occult Blood Negative (Negative) Blood Type Antibody Screen CHON, Poly Interpret Crossmatch - EKG Data EKG #1 EKG attestation: Yes I reviewed and interpreted this EKG. EKG results narrative: EKG dated 24 July 2016 at 16:58 interpreted as sinus rhythm with a rate of 78. Normal intervals LA 135, QRS 110, QT/QTC 414/448. Left axis. No peaked T waves. Nonspecific ST-T changes. Compared to previous dated 07/14/2016 showing no acute ischemic changes comparison. Critical Care Time Critical Care Time: Yes Total Critical Care Time: 30 Attestation: The high probability of a clinically significant, sudden or life threatening deterioration of the [heme/metabolic] system(s) required my full and direct attention, intervention and personal management. The aggregate critical care time was [30] minutes. This time is in addition to time spent performing reported procedures but includes the following: [X] Data Review and interpretation [X] Patient assessment and monitoring of vital signs [X] Documentation [X] Medication orders and management Attestation Statement - Attestation Attestation: I personally interviewed and examined this patient and my medical decision- making was reviewed with the ED Resident Physician, Dr. Villanueva. I agree with the documented findings, disposition and treatment plan as described except to the extent set forth below. Patient is a 76-year-old elderly female who is sent to the emergency department today by a phone call from her GI specialist, Dr. Styles. Patient was called and told that her recent lab work showed a significant drop in her hemoglobin and that she should come into the emergency department. Hemoglobin was reported at 6.5. Patient has a history of lower GI bleeding although she denies any bright red blood per rectum, does describe occasional tarry black stool. Patient denies any abdominal pain no chest pain shortness of breath just complaining of generalized weakness and appears somewhat pale in color, no diaphoresis. . I agree with Physical exam as documented. Patient had labs drawn was placed on a hospital monitor and continuous pulse ox EKG is documented with no findings concerning for elevated potassium changes. Patient's lab evaluation does confirm the low hemoglobin although occult stool testing was negative for blood. Patient was typed and screened and crossed for 3 units of blood and initial transfusion was initiated in the ED following signed consent. Patient also has an elevated potassium with worsening acute on chronic renal insufficiency. We are starting IV fluids as well as calcium gluconate and Kayexalate for elevated potassium. Patient will be continued on a hospital monitor and observed closely. Patient will be admitted for anemia of unknown etiology as well as acute on chronic renal insufficiency with hyperkalemia. Case was discussed with Dr. Styles who will be consulate from the ED , as well as the hospitalist who accepted the patient for admission.
[2016-07-24] MEDS ORDERED: Acetaminophen 325 MG TABLET PO PRN (19:43)
[2016-07-24] MEDS ORDERED: Naloxone 0.4 MG/ML INJ IVP PRN (19:43)
[2016-07-24] MEDS ORDERED: Ondansetron 4 MG/2 ML VIAL IVP PRN (19:43)
--- NOTE | 2016-07-24 20:34 | Internal Med History&Physical ---
Date of Encounter: 07/24/16 Time of Encounter: 20:00 Assessment and Plan (1) Anemia Current visit: Yes Status: Acute Unknown etiology of her anemia. Fecal occult blood test is negative and the patient denies any history of bloody vomiting or blood in the stools or melena. We will obtain stat reticulocyte count, LDH, haptoglobin level and Tony test. Transfuse 3 units after blood work. Patient be placed to inpatient status due to need for transfusions. High risk due to risk of lethal arrhythmias due to her hyperkalemia. Expected to be in the hospital for at least 2 midnights. Expected discharge disposition is to home. We will hold off on GI consult as the patient does not seem to have evidence of bleeding. She had a recent endoscopy and April which did not reveal that his is but did reveal portal hypertensive gastropathy. Qualifiers: Anemia type: unspecified type Qualified Code(s): D64.9 - Anemia, unspecified (2) Hyperkalemia Current visit: Yes Status: Acute Patient received a dose of Kayexalate by mouth. She also got calcium gluconate. Will repeat BMP at 9 PM. No EKG changes currently. Monitor on telemetry. (3) CKD (chronic kidney disease) Current visit: Yes Status: Chronic Likely due to her hypertension. Patient follows with Dr. Calles. Renal function appears to be at baseline. Qualifiers: Chronic kidney disease stage: stage 3 (moderate) Qualified Code(s): N18.3 - Chronic kidney disease, stage 3 (moderate) (4) Cirrhosis Current visit: Yes Status: Chronic From the patient's history, it sounds like the patient has non alcoholic steatohepatitis. 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 Continue home medications. Qualifiers: Hepatic cirrhosis type: other cirrhosis Qualified Code(s): K74.69 - Other cirrhosis of liver (5) Diabetes Current visit: Yes Status: Chronic Control blood sugars. Continue home medications. Sliding-scale insulin. Qualifiers: Diabetes mellitus type: type 2 Diabetes mellitus complication status: with kidney complications Diabetes mellitus complication detail: with chronic kidney disease Diabetes mellitus tool specialist insulin use: with correction use Chronic kidney disease stage: stage 3 (moderate) Qualified Code(s): E11.22 - Type 2 diabetes mellitus with diabetic chronic kidney disease; N18.3 - Chronic kidney disease, stage 3 (moderate); Z79.4 - FDC (current) use of insulin (6) Essential hypertension Current visit: Yes Status: Chronic Control blood pressure. Continue current home medications. (7) Portal hypertension Current visit: Yes Status: Chronic As mentioned above, due to cirrhosis (8) Chronic respiratory failure Current visit: Yes Status: Chronic Continue home oxygen therapy. Qualifiers: Respiratory failure complication: hypoxia Qualified Code(s): J96.11 - Chronic respiratory failure with hypoxia Internal Medicine - H&P: HPI Chief complaint: Abnormal labs Admitted From: Emergency Dept Plans for Post Hospital Care: Home History of present illness: Ms. Flores is a 76 year old female with a history of cirrhosis, portal hypertension who receives paracentesis every week on Wednesday presented to the hospital after she was called by her GI physician with abnormal labs. The patient is currently recommended by her son who is assisted with history. According to both of them, the patient has cirrhosis from what appears to be due to nonalcoholic steatohepatitis. They deny any history of alcohol abuse or hepatitis B or C. Patient has been following Dr. redding for about 2-3 years. She disease weekly paracentesis. The son states that her last transfusion was last week when she was found to have a hemoglobin of 5.9 just prior to her paracentesis and was transfused with 2 units packed red blood cells. Before the transfusion, she was transfused in April. She was supposed to get paracentesis this . However, her lab work revealed a hemoglobin of 6.9. Hence, she was instructed by Dr. redding to present to the emergency department for transfusion. She had a fever and blood test performed in the emergency department which was negative. She denies any blood in her stool. She reports dark brown stool but not black tarry stool. She denies any nausea or vomiting. She reports feeling tired and having intermittent lightheadedness. She denies any palpitations, chest pain. She reports intermittent headaches over the last 2 days. She denies any abdominal pain, diarrhea or constipation. She denies any swelling in her legs. Her son mentions that usually she has 5 L taken out on her weekly paracentesis but last week, she had 6.7 L taken out. She denies any fever or chills. She is on continuous 2 L home oxygen. This is presumed to be due to COPD but the patient has never smoked in her life. Past Med Surg Social Fam HX - Past Medical History Attestation: Yes The following information was validated with the patient. Source: patient, obtained from family Medical history: arthritis, cirrhosis, COPD, dementia, diabetes, GERD, glaucoma , hepatitis, hyperlipidemia, hypertension, osteoporosis, renal disease, thyroid disease Psychiatric history: no psych history - Past Surgical History Surgical History: herniorrhaphy - Social History Smoking Status: Never smoker Smokeless Tobacco Status: No Alcohol use: none Drug use: none Current living situation: Home, With Family - Family History Sister Adopted: No Living Status: Hx Family Cardiac Disorders: Yes Hx Family Respiratory Disorders: Yes Hx Family Cancer: Yes Hx Family GI Disorders: Yes (cirrhosis) Hx Family Endocrine Disorder: No Hx Family Neuromuscular Disorders: No Hx Family Neurologic Disorders: No Hx Family HEENT Disorders: No Hx Family Autoimmune Disorders: No Mother Adopted: No Family Member Ethnicity: Non- Living Status: Hx Family Cardiac Disorders: Yes Father Hx Family Cardiac Disorders: Yes (MYOCARDIAL INFARCTION.) Son Adopted: No Family Member Ethnicity: Non- Living Status: Still Living Hx Family Cardiac Disorders: Yes (HTN) Hx Family Respiratory Disorders: No Hx Family Cancer: No Hx Family GI Disorders: No Hx Family Endocrine Disorder: No Hx Family Neuromuscular Disorders: No Hx Family Neurologic Disorders: No Hx Family HEENT Disorders: No Hx Family Autoimmune Disorders: No Internal Medicine - H&P: Meds Cholecalciferol (Vitamin D3) [Vitamin D3] 50,000 unit PO WESA 11/02/14 [History] Magnesium Oxide [Magnesium] 400 mg PO BID 11/02/14 [History] Aspirin 81 mg PO DAILY 30 Days 11/08/14 [Rx] Ipratropium/Albuterol Neb [Duoneb] 3 ml IH Q4HR PRN 04/26/15 [History] Rifaximin [Xifaxan] 550 mg PO BID #60 tablet 05/01/15 [Rx] Cyanocobalamin (Vitamin B-12) [Vitamin B12] 1,000 mcg PO 2XW 09/03/15 [History] Zinc Sulfate 220 mg PO BID 09/03/15 [History] Insulin DETEMIR [Levemir Flextouch] 26 unit SQ BID 10/07/15 [History] Insulin LISPRO [Humalog Kwikpen U-100] 0 unit SQ ACHS 10/07/15 [History] Lactulose 15 ml PO TID PRN 10/07/15 [History] Levothyroxine [Synthroid] 100 mcg PO QAM 10/07/15 [History] Oxygen 2 l NS AD 12/22/15 [History] Ondansetron ODT [Zofran ODT] 4 mg SL TID PRN 04/02/16 [History] raNITIdine HCl [Ranitidine HCl] 150 mg PO BID 04/02/16 [History] Diclofenac Sodium 1 appl TP QID PRN 04/09/16 [History] Sucralfate [Carafate] 1 gm PO QIDAC 30 Days 04/15/16 [Rx] Midodrine HCl 2.5 mg PO TID 05/19/16 [History] HYDROcodone/Acet 5/325 mg [[place] 5-325 mg] 1 tab PO Q8H PRN 07/14/16 [History] Pantoprazole Sodium [Protonix] 40 mg PO DAILY 07/14/16 [History] Allergies No Known Allergies Allergy (Verified 07/14/16 11:53) All Systems PM: A 10-system review of systems was performed and is negative for pertinent findings except as documented above in the HPI. Review of systems: 10 systems have been reviewed and are negative except as mentioned in the history of present illness - Constitutional Vitals: Temp Pulse Resp BP Pulse Ox 98.1 F 70 16 129/49 100 07/24/16 16:46 07/24/16 19:15 07/24/16 19:15 07/24/16 19:15 07/24/16 19:15 Exam: Gen.: Lying in bed. Mild distress. Eyes: Pupils equal, round and reactive to light. Extraocular muscles intact. ENT: Dry mucous membranes. No oropharyngeal erythema or discharge. Chest: Clear to auscultation bilaterally. No adventitious sounds present. MediPort present on the right side of the chest. CVS: First and second heart sounds present. No murmurs, rubs or gallops. Abdomen: Soft, nontender, nondistended. Bowel sounds present. Skin: No decubitus ulcers appreciated. BODY PRESSER: No focal neuro deficits present. Psychiatric: Alert, awake and oriented to time, place and person. Lymphatic system: No lymphadenopathy appreciated Internal Med - H&P Results - Labs CBC & Chem 7: 07/24/16 17:49 07/24/16 17:49 - EKG Data -: EKG Interpreted by Myself EKG shows normal: sinus rhythm Rate: normal - EKG Data Prior EKG available for review: yes When compared to previous EKG: there is no significant change
[2016-07-24] MEDS ORDERED: D5% in Water 1,000 ML IVC PRN (20:50)
[2016-07-24] MEDS ORDERED: *HR* Dextrose 50 % in Water (Syg) 50 ML SYRINGE IVP PRN (20:50)
[2016-07-24] MEDS ORDERED: Dextrose Gel 15 GM PO PRN ×2 (20:50)
[2016-07-24] MEDS ORDERED: NON-FORMULARY MEDICATION 1 EACH EACH (Insulin Detemir [Levemir Flextouch] 20 UNIT) SQ SCH (21:00)
[2016-07-24] MEDS ORDERED: NON-FORMULARY MEDICATION 1 EACH EACH (Oxygen [Oxygen] 2 L) NS SCH (21:00)
[2016-07-24 21:37] LABS: Immature Reticulocyte % 21.1 % (11.0-38.0); Retculocyte # 0.09 M/mcL (0.05-0.10); Reticulocyte % 3.8 % (1.6-2.8)
[2016-07-24 21:51] LABS: Calcium 8.8 mg/dL (8.6-10.8); Potassium 5.7 mEq/L (3.5-4.5)
[2016-07-24] MEDS: Insulin LISPRO 300 UNITS/3 ML VIAL SQ SCH (22:00)
[2016-07-24] MEDS: Sucralfate 1 GM TABLET PO SCH (22:06)
[2016-07-24] MEDS: *HR* HYDROcodone/Acet 5/325 mg TABLET PO PRN (22:06)
[2016-07-24] MEDS: (Rifaximin [Xifaxan] 550 MG) PO SCH (22:08)
[2016-07-24] MEDS ORDERED: 0.9 % Sodium Chloride 250 ML ONE (23:14)
[2016-07-24] MEDS: Ipratropium/Albuterol Neb 3 ML IH SCH (23:45)
[2016-07-25] MEDS ORDERED: Furosemide 20 MG/2 ML VIAL IVP ONE (02:02)
[2016-07-25] MEDS ORDERED: Albuterol 2.5 MG/3 ML NEBULIZER IH ONE (02:05)
[2016-07-25] MEDS ORDERED: Ipratropium/Albuterol Neb 3 ML IH ONE (02:06)
[2016-07-25] MEDS ORDERED: 0.9 % Sodium Chloride 250 ML ONE ×3 (02:36→21:32)
[2016-07-25] MEDS: Ipratropium/Albuterol Neb 3 ML IH SCH ×6 (04:10→23:58)
[2016-07-25] MEDS: *HR* HYDROcodone/Acet 5/325 mg TABLET PO PRN (06:56)
[2016-07-25 07:09] LABS: Basophils % 0.4 %; Eosinophils # 0.1 K/mcL (0.0-0.6); Hematocrit 26.1 % (35.3-44.9); Immature Granulocytes % 0.4 % (0-4); Immature Platelets 6.3 % (1.1-6.1); Lymphocytes # 0.4 K/mcL (0.6-4.6); Mean Corpuscular HGB Conc 31.8 g/dL (31.6-35.5); Mean Corpuscular Hemoglobin 30.9 pg (28.0-33.3); Mean Platelet Volume 12.6 fL (9.4-12.4); Monocytes # 0.6 K/mcL (0.0-1.3); Monocytes % 12.5 %; Neutrophils # 3.7 K/mcL (1.6-8.9); Red Blood Count 2.69 M/mcL (3.82-4.97); Red Cell Distribution Width 17.5 % (11.5-14.5); Segmented Neutrophils % 75.7 %
[2016-07-25 07:15] LABS: INR 1.2; Prothrombin Time 13.5 Seconds (9.4-12.1)
[2016-07-25 07:21] LABS: Albumin 2.9 g/dL (3.5-5.0); Calcium 8.3 mg/dL (8.6-10.8); Globulin 2.9 g/dL (2.4-3.5); Total Protein 5.8 g/dL (6.0-8.3)
[2016-07-25 07:26] LABS: Hemoglobin 8.3 g/dL (11.5-15.4); Platelet Count 47 K/mcL (140-400)
[2016-07-25 07:31] LABS: Bilirubin,Total 2.8 mg/dL (0.2-1.2); Potassium 4.4 mEq/L (3.5-4.5)
--- NOTE | 2016-07-25 08:30 | Nephrology Consult Note ---
Date of Encounter: 07/25/16 Time of Encounter: 08:28 Assessment and Plan (1) Anemia of chronic disease Current Visit: Yes Status: Acute The patient has stage IV chronic kidney disease which is currently stable. She has evidence of severe anemia requiring recurrent blood transfusions. Current evaluation for GI bleeding has been negative. I believe her anemia is multifactorial. She obviously has significant chronic kidney disease which could contribute to her anemia. She also has cirrhosis with esophageal varices and probable portal hypertension which also could contribute to her anemia. In addition she may have some underlying bone marrow issue. I went to check iron studies with the B12 and folate levels. The patient will be started on Aranesp although if she has other etiologies contributing to her anemia the Aranesp may not be very efficacious. I would also suggest a hematology evaluation. (2) Chronic kidney disease, stage IV (severe) Current Visit: Yes Status: Acute (3) Cirrhosis Current Visit: No Status: Chronic Qualifiers: Hepatic cirrhosis type: alcoholic cirrhosis Ascites presence: with ascites Qualified Code(s): K70.31 - Alcoholic cirrhosis of liver with ascites (4) Pancytopenia Current Visit: No Status: Chronic History of Present Illness - History of Present Illness This is a 76-year-old female who is followed as an outpatient for stage IV chronic kidney disease. Patient has a history of cirrhosis complicated by esophageal varices and ascites requiring regular therapeutic paracentesis procedures. She also has a history of recurrent severe anemia requiring blood transfusions. Patient was noted as an outpatient to have a hemoglobin of 6.5 and subsequently was told to come to the hospital. She has been given 2 units of blood and current hemoglobin is 8.3. She also has been noted to have thrombocytopenia with a current platelet count of 47,000 and a white blood cell count of 4.9. Guaiac stools have been negative. Recent EGD believe that showed esophageal varices but no evidence of bleeding. Patient's pain complaint is that of shortness of breath and abdominal swelling related to her ascites. From a renal perspective she is stable with a creatinine of 2.38 and a GFR of 20. Baseline GFR ranges from 20-25. The patient denies any melena or hematochezia hematemesis or hemoptysis. Past Med Surg Social Fam HX - Past Medical History Medical history: arthritis, cirrhosis, COPD, dementia, diabetes, GERD, glaucoma , hepatitis, hyperlipidemia, hypertension, liver disease, osteoporosis, renal disease, thyroid disease Psychiatric history: no psych history - Past Surgical History Surgical History: herniorrhaphy - Social History Smoking Status: Never smoker Smokeless Tobacco Status: No Alcohol use: none Drug use: none - Family History Sister Adopted: No Living Status: Hx Family Cardiac Disorders: Yes Hx Family Respiratory Disorders: Yes Hx Family Cancer: Yes Hx Family GI Disorders: Yes (cirrhosis) Hx Family Endocrine Disorder: No Hx Family Neuromuscular Disorders: No Hx Family Neurologic Disorders: No Hx Family HEENT Disorders: No Hx Family Autoimmune Disorders: No Mother Adopted: No Family Member Ethnicity: Non- Living Status: Hx Family Cardiac Disorders: Yes Hx Family Medical Disorders: Yes (Gout) Father Hx Family Cardiac Disorders: Yes ([place]) Son Adopted: No Family Member Ethnicity: Non- Living Status: Still Living Hx Family Cardiac Disorders: Yes (HTN) Hx Family Respiratory Disorders: No Hx Family Cancer: No Hx Family GI Disorders: No Hx Family Endocrine Disorder: No Hx Family Neuromuscular Disorders: No Hx Family Neurologic Disorders: No Hx Family HEENT Disorders: No Hx Family Autoimmune Disorders: No Medications and Allergies Cholecalciferol (Vitamin D3) [Vitamin D3] 50,000 unit PO WESA 11/02/14 [History] Magnesium Oxide [Magnesium] 400 mg PO BID 11/02/14 [History] Aspirin 81 mg PO DAILY 30 Days 11/08/14 [Rx] Ipratropium/Albuterol Neb [Duoneb] 3 ml IH Q4HR PRN 04/26/15 [History] Rifaximin [Xifaxan] 550 mg PO BID #60 tablet 05/01/15 [Rx] Cyanocobalamin (Vitamin B-12) [Vitamin B12] 1,000 mcg PO 2XW 09/03/15 [History] Zinc Sulfate 220 mg PO BID 09/03/15 [History] Insulin DETEMIR [Levemir Flextouch] 26 unit SQ BID 10/07/15 [History] Insulin LISPRO [Humalog Kwikpen U-100] 0 unit SQ ACHS 10/07/15 [History] Lactulose 15 ml PO TID PRN 10/07/15 [History] Levothyroxine [Synthroid] 100 mcg PO QAM 10/07/15 [History] Oxygen 2 l NS AD 12/22/15 [History] Ondansetron ODT [Zofran ODT] 4 mg SL TID PRN 04/02/16 [History] raNITIdine HCl [Ranitidine HCl] 150 mg PO BID 04/02/16 [History] Diclofenac Sodium 1 appl TP QID PRN 04/09/16 [History] Sucralfate [Carafate] 1 gm PO QIDAC 30 Days 04/15/16 [Rx] Midodrine HCl 2.5 mg PO TID 05/19/16 [History] HYDROcodone/Acet 5/325 mg [[place] 5-325 mg] 1 tab PO Q8H PRN 07/14/16 [History] Pantoprazole Sodium [Protonix] 40 mg PO DAILY 07/14/16 [History] Allergies No Known Allergies Allergy (Verified 07/14/16 11:53) Review of Systems Constitutional: as per HPI, weakness Eyes: bilateral: blurred vision (patient denies), diplopia (patient denies) Nose, mouth and throat: no dizziness, no headache(s) Cardiovascular: as per HPI, dyspnea, dyspnea on exertion Respiratory: dyspnea, dyspnea on exertion Gastrointestinal: as per HPI, bloating Musculoskeletal: no muscle weakness, no numbness Integumentary: no hirsutism, no striae Neurological: as per HPI Psychiatric: no depression, no difficulty concentrating Endocrine: as per HPI Exam - Vital Signs Vital signs: Initial Vital Signs Temp Pulse Resp BP Pulse Ox 98.1 F 77 18 143/68 97 07/24/16 16:46 07/24/16 16:46 07/24/16 16:46 07/24/16 16:46 07/24/16 16:46 Vital Signs - Last 8 Hours Temp Pulse Resp BP Pulse Ox 07/25/16 07:24 98.6 F 89 15 119/51 96 07/25/16 06:45 98.3 F 92 16 133/64 98 07/25/16 06:00 98.3 F 91 18 135/60 98 07/25/16 05:59 98.3 F 91 18 135/60 98 07/25/16 04:10 16 99 07/25/16 02:46 98.6 F 83 18 160/73 100 07/25/16 02:18 98.0 F 83 18 158/63 100 07/25/16 02:16 98.0 F 83 18 156/63 100 Intake and Output 07/24/16 07/25/16 07/25/16 23:59 07:59 15:59 Intake Total 1110 / 1110 955 / 955 Balance 1110 / 1110 955 / 955 Intake: IV Fluids 1110 / 1110 255 / 255 0.9 % Sodium Chloride 250 255 / 255 ML As .ROUTE .STK-MED ONE Rx#:[id number] 0.9 % Sodium Chloride 1, 1000 / 1000 000 ML @ 3750 mls/hr IVC .Q16M ONE Rx#:[id number] Calcium Gluconate 1,000 110 / 110 MG In Dextrose 5% 100 ML @ 220 mls/hr IVPB ONCE ONE Rx#:[id number] Blood Product 0 / 0 700 / 700 Rbcs Leuko Poor As-3 2nd 350 / 350 Unit [id number] Rbcs Leuko Poor As-3 Ph 0 / 0 350 / 350 Unit [id number] Rbcs Leuko Poor As-3 Ph 0 / 0 Unit [id number] Other: Stool Size Small Small Stool Consistency soft soft Stool Characteristics Normal for Patient Normal for Patient Stool Color Brown Brown # Voids 1 # Bowel Movements 1 1 Weight 75.841 kg Blood Glucose* 148 230 Patient Weight 07/25/16 23:59 Weight 75.841 kg - General Appearance Exam: Patient is alert and oriented. She is in no acute distress. She appears chronically ill. Neck is supple. Lungs Mensch breath sounds. Heart regular rate and rhythm. Abdomen is distended due to ascites. Abdomen is soft. There is no tenderness guarding or rigidity. There is no peripheral edema. Results - Lab Results 07/25/16 06:20 07/25/16 06:20 Most recent lab results Calcium 8.3 mg/dL (8.6-10.8) L 07/25/16 06:20 Magnesium 2.5 mg/dL (1.6-2.6) 07/24/16 17:49 Consult Discharge Plan - Plan Referrals: Michael Ibanez DO [Primary Care Provider] -
[2016-07-25] MEDS ORDERED: Darbepoetin 100 MCG/0.5 ML SYRINGE SQ SCH (08:45)
[2016-07-25] MEDS: Sucralfate 1 GM TABLET PO SCH ×4 (08:52→21:26)
[2016-07-25] MEDS: (Rifaximin [Xifaxan] 550 MG) PO SCH ×2 (08:52→21:24)
[2016-07-25] MEDS: Insulin DETEMIR 100 UNIT/ML X5UNITS SQ SCH (08:52)
[2016-07-25] MEDS: Insulin LISPRO 300 UNITS/3 ML VIAL SQ SCH ×3 (08:53→16:42)
[2016-07-25 11:23] LABS: % Iron Saturation 89 % (15-50); Iron 191 mcg/dL (50-170); Transferrin 153 mg/dL (180-382)
[2016-07-25 11:43] LABS: Ferritin 115 ng/ml (5-204)
[2016-07-25 11:58] LABS: Folate 6.8 ng/mL (7.0-31.4)
--- NOTE | 2016-07-25 13:22 | Internal Med Progress Note ---
Date of Encounter: 07/25/16 Time of Encounter: 09:45 - Assessment and plan (1) Anemia Current Visit: Yes Status: Acute Assessment and plan: Acute on chronic anemia. Hemoglobin has improved after 3 units of packed red blood cell transfusion. Discussed with nephrology. Will consult hematology for recommendations. Patient has normal iron levels and vitamin B12 levels. Folic acid levels are low. We will replace. Moderate risk for complications. Qualifiers: Anemia type: other cause Other causes of anemia: chronic disease, other Qualified Code(s): D63.8 - Anemia in other chronic diseases classified elsewhere (2) CKD (chronic kidney disease) stage 4, GFR 15-29 ml/min Current Visit: Yes Status: Chronic Assessment and plan: Renal function remained stable. Potassium levels are improving. (3) Hyperkalemia Current Visit: No Status: Resolved (4) Chronic respiratory failure Current Visit: Yes Status: Chronic Assessment and plan: Continue O2 supplementation Qualifiers: Respiratory failure complication: hypoxia Qualified Code(s): J96.11 - Chronic respiratory failure with hypoxia (5) Cirrhosis Current Visit: No Status: Chronic Assessment and plan: Treat symptomatically. Continue rifaximin, multivitamins Qualifiers: Hepatic cirrhosis type: alcoholic cirrhosis Ascites presence: with ascites Qualified Code(s): K70.31 - Alcoholic cirrhosis of liver with ascites (6) Diabetes Current Visit: Yes Status: Chronic Assessment and plan: On sliding scale insulin. Monitor blood sugars. Will adjust insulin regimen accordingly. 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 - Subjective Interval history: Patient is lying in bed. Appears comfortable. Denies any new complaints at this time. Has received 3 units of packed red blood cells. Tolerated transfusion well. No complaints. No nausea or vomiting. No urticaria or rashes. Feels better compared to yesterday. Less tired. - Constitutional Vitals: Temp Pulse Resp BP Pulse Ox 97.4 F L 88 20 134/73 99 07/25/16 11:08 07/25/16 11:08 07/25/16 11:08 07/25/16 11:08 07/25/16 11:08 General appearance: Present: cooperative, mild distress, A&O X 3, answers questions appropriately - Eye Eye exam: Present: EOMI, PERRL Additional comments: Conjunctival pallor - Neck Neck exam general surgery: Present: supple, trachea midline. Absent: lymphadenopathy - Respiratory Respiratory exam: Present: CTAB. Absent: accessory muscle use, rales, rhonchi, wheezes - Cardiovascular Cardiovascular exam: Present: RRR, +S1, +S2. Absent: diastolic murmur, gallop, rubs, systolic murmur - GI/Abdominal GI/Abdominal exam: Present: distended, normal bowel sounds, soft, no peritoneal signs. Absent: tenderness Additional comments: Ascites present - Extremities Exam Extremities exam: Present: warm, radial pulses palpable and symetrical. Absent : calf tenderness, cyanotic, pedal edema - Neurological Exam Neurological exam: Present: alert, oriented X3, no focal deficits. Absent: facial droop, speech deficit Internal Medicine: Result - Labs CBC & Chem 7: 07/25/16 06:20 07/25/16 06:20 Labs: Short CBC 07/25/16 Range/Units 06:20 WBC 4.9 D (4.3-11.1) K/mcL Hgb 8.3 L D (11.5-15.4) g/dL Hct 26.1 L (35.3-44.9) % Plt Count 47 L (140-400) K/mcL Neutrophils # 3.7 (1.6-8.9) K/mcL BMP 07/24/16 07/25/16 21:25 06:20 Sodium 140 140 Potassium 5.7 H 4.4 D Chloride 115 H 113 H Carbon Dioxide 18 L 18 L BUN 60 H 57 H Creatinine 2.50 H 2.38 H Glucose 141 H 224 H Calcium 8.8 8.3 L Liver Function 07/25/16 Range/Units 06:20 Total Bilirubin 2.8 H D (0.2-1.2) mg/dL AST 35 H (5-34) Units/L ALT 22 (0-55) Units/L Alkaline Phosphatase 132 H (38-126) Units/L Albumin 2.9 L (3.5-5.0) g/dL - ABG Interpretation ABG results: PT/INR, D-dimer PT 13.5 Seconds (9.4-12.1) H 07/25/16 06:20 Consult Discharge Plan - Plan Referrals: Michael Ibanez DO [Primary Care Provider] - (Web Request 07/25/16) - Attending Attestation This document has been at least partially created by [employer] recognition technology by Dr. Monreal. Errors in grammar, wording or other phrases may exist. If errors are found after the documentation is signed, they will be addressed individually in the addendum section of this document when appropriate.
--- NOTE | 2016-07-25 15:55 | Oncology Inp Consult Note ---
Date of Encounter: 07/25/16 Time of Encounter: 15:00 Assessment and Plan (1) Anemia Status: Acute Assessment and plan: zhkfnrwzwmffbv-pshekfqn-acvil drop (10g--5g)in Hgb likely from GI bleed in patient with known varices s/p banding multiple times prior-last EGD 04/03, flex sig per , cr liver disease ferritin at 100s-consider colonoscopy to complete w/u and possibly another upper endoscopy. 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 May consider BM bx if plt trend over 50k to r/o other etiology, after IV iron/folate supplementation. PS-no evidence of hemolysis, will obtain path review. Plan d/w patient's son and family in detail. Qualifiers: Anemia type: other cause Other causes of anemia: chronic disease, other Qualified Code(s): D63.8 - Anemia in other chronic diseases classified elsewhere - Data of Consult Requesting Physician: Debra Monreal MD Primary Care Provider: Michael Ibanez - Consult Narrative Reason for consult: anemia, end stage cirrhosis, hyperplenism, esophageal varices History of present illness: Ms. Flores is a 76 year old female with medical history significant for end -stage cirrhosis, severe anemia, esophageal varices endoscopy in March 2016 with normal recent colonoscopy, hepatic encephalopathy multiple prior admissions , patient was seen for hospice evaluation and felt appropriate for hospice [place] [address] Meraz, also with chronic kidney disease hypertension, dementia, COPD , CK D, diabetes mellitus, hematology consulted to evaluate additional etiology for anemia and workup (?marrow??). Ferritin is found to be in the 100s, folic acid was low this hospitalization on supplementation. Bowels are dark per caregiver/son--no bright blood Brusing in skin, no epistaxis/oral cavity bleeding. She is drowsy asleep not giving much history Past Med Surg Social Fam HX - Past Medical History Medical history: arthritis, cirrhosis, COPD, dementia, diabetes, GERD, glaucoma , hepatitis, hyperlipidemia, hypertension, liver disease, osteoporosis, renal disease, thyroid disease Psychiatric history: no psych history - Past Surgical History Surgical History: herniorrhaphy - Social History Smoking Status: Never smoker Smokeless Tobacco Status: No Alcohol use: none Drug use: none - Family History Sister Adopted: No Living Status: Hx Family Cardiac Disorders: Yes Hx Family Respiratory Disorders: Yes Hx Family Cancer: Yes Hx Family GI Disorders: Yes (cirrhosis) Hx Family Endocrine Disorder: No Hx Family Neuromuscular Disorders: No Hx Family Neurologic Disorders: No Hx Family HEENT Disorders: No Hx Family Autoimmune Disorders: No Mother Adopted: No Family Member Ethnicity: Non- Living Status: Hx Family Cardiac Disorders: Yes Hx Family Medical Disorders: Yes (Gout) Father Hx Family Cardiac Disorders: Yes ([place]) Son Adopted: No Family Member Ethnicity: Non- Living Status: Still Living Hx Family Cardiac Disorders: Yes (HTN) Hx Family Respiratory Disorders: No Hx Family Cancer: No Hx Family GI Disorders: No Hx Family Endocrine Disorder: No Hx Family Neuromuscular Disorders: No Hx Family Neurologic Disorders: No Hx Family HEENT Disorders: No Hx Family Autoimmune Disorders: No Medications and Allergies Cholecalciferol (Vitamin D3) [Vitamin D3] 50,000 unit PO WESA 11/02/14 [History] Magnesium Oxide [Magnesium] 400 mg PO BID 11/02/14 [History] Aspirin 81 mg PO DAILY 30 Days 11/08/14 [Rx] Ipratropium/Albuterol Neb [Duoneb] 3 ml IH Q4HR PRN 04/26/15 [History] Rifaximin [Xifaxan] 550 mg PO BID #60 tablet 05/01/15 [Rx] Cyanocobalamin (Vitamin B-12) [Vitamin B12] 1,000 mcg PO 2XW 09/03/15 [History] Zinc Sulfate 220 mg PO BID 09/03/15 [History] Insulin DETEMIR [Levemir Flextouch] 26 unit SQ BID 10/07/15 [History] Insulin LISPRO [Humalog Kwikpen U-100] 0 unit SQ ACHS 10/07/15 [History] Lactulose 15 ml PO TID PRN 10/07/15 [History] Levothyroxine [Synthroid] 100 mcg PO QAM 10/07/15 [History] Oxygen 2 l NS AD 12/22/15 [History] Ondansetron ODT [Zofran ODT] 4 mg SL TID PRN 04/02/16 [History] raNITIdine HCl [Ranitidine HCl] 150 mg PO BID 04/02/16 [History] Diclofenac Sodium 1 appl TP QID PRN 04/09/16 [History] Sucralfate [Carafate] 1 gm PO QIDAC 30 Days 04/15/16 [Rx] Midodrine HCl 2.5 mg PO TID 05/19/16 [History] HYDROcodone/Acet 5/325 mg [[place] 5-325 mg] 1 tab PO Q8H PRN 07/14/16 [History] Pantoprazole Sodium [Protonix] 40 mg PO DAILY 07/14/16 [History] Allergies No Known Allergies Allergy (Verified 07/14/16 11:53) Review of systems: as In HPI Oncology - Exam - Constitutional Vitals: Temp Pulse Resp BP Pulse Ox 97.9 F 72 15 131/66 99 07/25/16 15:36 07/25/16 15:36 07/25/16 15:36 07/25/16 15:36 07/25/16 15:36 General appearance: no acute distress - Head Head exam: Present: atraumatic, normal inspection - Eye Eye exam: Present: scleral icterus, sclera anicteric - ENT ENT exam: Present: mucous membranes dry - Neck Neck exam: Present: normal inspection - Respiratory Respiratory exam: Present: CTAB Additional comments: on oxygen - Cardiovascular Cardiovascular exam: Present: +S1, +S2 - GI/Abdominal GI/Abdominal exam: Present: distended, soft - Extremities Exam Extremities exam: Present: normal inspection Additional comments: no edema - Neurological Exam Neurological exam: Present: altered Additional comments: sleepy, responding to verbal - Skin Skin exam: Present: pallor Additional comments: bruising ext Oncology - Results - Labs Labs: Short CBC 07/25/16 Range/Units 06:20 WBC 4.9 D (4.3-11.1) K/mcL Hgb 8.3 L D (11.5-15.4) g/dL Hct 26.1 L (35.3-44.9) % Plt Count 47 L (140-400) K/mcL Neutrophils # 3.7 (1.6-8.9) K/mcL BMP 07/24/16 07/25/16 21:25 06:20 Sodium 140 140 Potassium 5.7 H 4.4 D Chloride 115 H 113 H Carbon Dioxide 18 L 18 L BUN 60 H 57 H Creatinine 2.50 H 2.38 H Glucose 141 H 224 H Calcium 8.8 8.3 L Liver Function 07/25/16 Range/Units 06:20 Total Bilirubin 2.8 H D (0.2-1.2) mg/dL AST 35 H (5-34) Units/L ALT 22 (0-55) Units/L Alkaline Phosphatase 132 H (38-126) Units/L Albumin 2.9 L (3.5-5.0) g/dL Consult Discharge Plan - Plan Referrals: Michael Ibanez DO [Primary Care Provider] - (Web Request 07/25/16)
[2016-07-25] MEDS: Folic Acid 1 MG TABLET PO SCH (16:40)
[2016-07-25] MEDS ORDERED: 0.9 % Sodium Chloride 500 ML IVC SCH (20:45)
[2016-07-25] MEDS: 0.9 % Sodium Chloride 500 ML IVC ONE (20:58)
--- NOTE | 2016-07-25 21:13 | Internal Med Progress Note ---
Date of Encounter: 07/25/16 Time of Encounter: 21:10 - Assessment and plan (1) Acute blood loss anemia Current Visit: No Status: Acute Assessment and plan: Acute blood loss anemia likely secondary to severe rectal bleed Start octreotide as the patient has history of esophageal varices, Protonix drip Transfuse 3 units of blood and [address] Thornton (surgery content management consultant consulted) was contacted and recommended a bleeding scan. We will call the results technician stat. I offered the patient the patient's family to transfer them to [place] because in case there would be a esophageal variceal bleed Dr. Thornton mentioned that he would not be able to solve the problem. The patient is a patient's family preferred to stay here and have the nuclear scan done first. In other peripheral line was placed, we will use the patient's right upper chest Port-A-Cath for fluid resuscitation, give bolus of 500 and continue 200 mL per hour. Monitor CBC afterwards The patient wishes to be a DNR CC arrest DNI Time spent on this critical care assessment 40 minutes (2) GI bleeding Current Visit: No Status: Acute Qualifiers: GI bleed type/associated pathology: unspecified gastrointestinal hemorrhage type Qualified Code(s): K92.2 - Gastrointestinal hemorrhage, unspecified (3) Esophageal varices in cirrhosis Current Visit: Yes Status: Chronic Assessment and plan: Continue octreotide and Protonix IV (4) Cirrhosis Current Visit: No Status: Chronic Assessment and plan: Treat symptomatically. Was taking rifaximin and lactulose, Qualifiers: Hepatic cirrhosis type: alcoholic cirrhosis Ascites presence: with ascites Qualified Code(s): K70.31 - Alcoholic cirrhosis of liver with ascites (5) Insulin dependent diabetes mellitus Current Visit: No Status: Chronic Assessment and plan: Continue insulin sliding scale (6) Chronic kidney disease, stage IV (severe) Current Visit: Yes Status: Acute - Subjective Interval history: The patient started bleeding profusely from her rectum, clots were seen in right red blood per rectum. She is not tachycardic, blood pressure is stable, she is not symptomatic except for some weakness. She is very anxious, denies any abdominal pain, no cough no fevers no headaches. - Constitutional Vitals: Temp Pulse Resp BP Pulse Ox 98.4 F 76 20 132/72 96 07/25/16 18:29 07/25/16 18:29 07/25/16 20:40 07/25/16 18:29 07/25/16 20:40 General appearance: Present: cooperative, mild distress, A&O X 3, answers questions appropriately - Head Head exam: Present: atraumatic, normocephalic - Eye Eye exam: Present: PERRL, conjuntiva pink, sclera anicteric Pupils: Present: PERRL - Neck Neck exam general surgery: Present: supple, trachea midline. Absent: lymphadenopathy - Respiratory Respiratory exam: Present: decreased breath sounds, CTAB. Absent: accessory muscle use, rales, rhonchi, wheezes - Cardiovascular Cardiovascular exam: Present: RRR, +S1, +S2. Absent: diastolic murmur, gallop, rubs, systolic murmur - GI/Abdominal GI/Abdominal exam: Present: distended (Severe ascites and ventral hernia), normal bowel sounds, soft, no peritoneal signs. Absent: tenderness - Rectal Additional comments: Profuse rectal bleeding - Extremities Exam Extremities exam: Present: pedal edema (+1 pitting edema both lower extremities) , warm, radial pulses palpable and symetrical. Absent: calf tenderness, cyanotic - Neurological Exam Neurological exam: Present: CN II-XII intact, oriented X3, no focal deficits. Absent: pronater drift, facial droop, speech deficit - Skin Skin exam: Present: dry, intact Internal Medicine: Result - Labs CBC & Chem 7: 07/25/16 06:20 07/25/16 06:20 Labs: Short CBC 07/25/16 Range/Units 06:20 WBC 4.9 D (4.3-11.1) K/mcL Hgb 8.3 L D (11.5-15.4) g/dL Hct 26.1 L (35.3-44.9) % Plt Count 47 L (140-400) K/mcL Neutrophils # 3.7 (1.6-8.9) K/mcL BMP 07/24/16 07/25/16 21:25 06:20 Sodium 140 140 Potassium 5.7 H 4.4 D Chloride 115 H 113 H Carbon Dioxide 18 L 18 L BUN 60 H 57 H Creatinine 2.50 H 2.38 H Glucose 141 H 224 H Calcium 8.8 8.3 L Liver Function 07/25/16 Range/Units 06:20 Total Bilirubin 2.8 H D (0.2-1.2) mg/dL AST 35 H (5-34) Units/L ALT 22 (0-55) Units/L Alkaline Phosphatase 132 H (38-126) Units/L Albumin 2.9 L (3.5-5.0) g/dL - ABG Interpretation ABG results: PT/INR, D-dimer PT 13.5 Seconds (9.4-12.1) H 07/25/16 06:20 Consult Discharge Plan - Plan Referrals: Michael Ibanez DO [Primary Care Provider] - (Web Request 07/25/16)
[2016-07-25] MEDS: Pantoprazole 40 MG in 0.9 % Sodium Chloride Mini Bag 100 ML IVC SCH (21:14)
[2016-07-25] MEDS: 0.9 % Sodium Chloride 1,000 ML IVC SCH (21:24)
[2016-07-25] MEDS ORDERED: 0.9 % Sodium Chloride 500 ML ONE (22:00)
[2016-07-25] MEDS: Octreotide 400 MCG in 0.9 % Sodium Chloride 100 ML IVC SCH (22:50)
[2016-07-26] MEDS: 0.9 % Sodium Chloride 500 ML IVC ONE (00:22)
[2016-07-26] MEDS: Insulin DETEMIR 100 UNIT/ML X5UNITS SQ SCH ×3 (00:47→23:15)
[2016-07-26] MEDS: Insulin LISPRO 300 UNITS/3 ML VIAL SQ SCH ×5 (00:48→20:59)
[2016-07-26] MEDS: *HR* HYDROcodone/Acet 5/325 mg TABLET PO PRN ×3 (00:50→23:15)
[2016-07-26] MEDS: Pantoprazole 40 MG in 0.9 % Sodium Chloride Mini Bag 100 ML IVC SCH ×5 (02:39→20:21)
[2016-07-26] MEDS: 0.9 % Sodium Chloride 1,000 ML IVC SCH (02:42)
[2016-07-26] MEDS: Ipratropium/Albuterol Neb 3 ML IH SCH ×5 (03:46→21:02)
[2016-07-26 05:23] LABS: Calcium 7.9 mg/dL (8.6-10.8); Potassium 4.1 mEq/L (3.5-4.5)
[2016-07-26 05:24] LABS: Basophils % 0.5 %; Eosinophils # 0.2 K/mcL (0.0-0.6); Eosinophils % 4.9 %; Hematocrit 32.7 % (35.3-44.9); Immature Granulocytes % 0.5 % (0-4); Lymphocytes # 0.7 K/mcL (0.6-4.6); Lymphocytes % 19.9 %; Mean Corpuscular HGB Conc 32.7 g/dL (31.6-35.5); Mean Corpuscular Hemoglobin 30.7 pg (28.0-33.3); Mean Corpuscular Volume 93.7 fL (83.0-100.0); Mean Platelet Volume 12.1 fL (9.4-12.4); Monocytes # 0.6 K/mcL (0.0-1.3); Monocytes % 16.1 %; Red Blood Count 3.49 M/mcL (3.82-4.97); Red Cell Distribution Width 18.5 % (11.5-14.5); Segmented Neutrophils % 58.1 %
[2016-07-26 05:25] LABS: Hemoglobin 10.7 g/dL (11.5-15.4); Neutrophils # 2.2 K/mcL (1.6-8.9); Platelet Count 42 K/mcL (140-400)
[2016-07-26 05:55] LABS: Platelet Estimate Decreased (Normal)
[2016-07-26 05:56] LABS: Hypochromasia Present (Not Present); Polychromasia 1+ (Not Present)
[2016-07-26] MEDS: Folic Acid 1 MG TABLET PO SCH (08:51)
[2016-07-26] MEDS: Sucralfate 1 GM TABLET PO SCH ×4 (08:51→20:19)
[2016-07-26] MEDS: (Rifaximin [Xifaxan] 550 MG) PO SCH ×2 (08:53→20:29)
--- NOTE | 2016-07-26 09:10 | General Surgery Consult Note ---
Date of Encounter: 07/27/16 Time of Encounter: 09:05 Assessment and Plan (1) Rectal bleeding Current Visit: Yes Status: Acute I reviewed the images and report from the bleeding scan from yesterday which showed no evidence of active bleeding. Her hemoglobin level suggest that she has not had any recent active bleeding and I think that the blood present within the stool is from a previous episode. She does have thrombocytopenia and I agree with the platelet transfusion. I would first order a CT scan of the abdomen and pelvis to see whether or not she has any significant ascites which would be a contraindication to performing a colonoscopy at this time. Will consider an EGD during this admission. History of Present Illness Consult date: 07/26/16 Reason for consult: other (rectal bleeding) Requesting physician: You Lennon History of present illness: The patient is a 76-year-old female with a past medical history significant for cirrhosis and GI bleed who presented to [facility] on 2016 secondary to anemia. There was concern about blood loss anemia and initially her Hemoccult was tested and was negative. I was called because she had a bright blood per rectum by the hospitalist service. The patient currently denies any abdominal pain he denies any nausea or vomiting. She does not recall or know whether or not she has had dark-colored stool. She had a previous EGD and colonoscopy performed (an EGD and colonoscopy performed on demonstrating internal hemorrhoids, esophageal ulcer, moderate signs of portal hypertension via the stomach but no evidence of active bleeding). He was transfused packed red blood cells however her hemoglobin shows stability and no signs of active bleed (hemoglobin was 8.3 prior to the transfusion and 10.7 posttransfusion which is an expected rise given the transfusion). Past Med Surg Social Fam HX - Past Medical History Medical history: arthritis, cirrhosis, COPD, dementia, diabetes, GERD, glaucoma , hepatitis, hyperlipidemia, hypertension, liver disease, osteoporosis, renal disease, thyroid disease Psychiatric history: no psych history - Past Surgical History Surgical History: herniorrhaphy - Social History Smoking Status: Never smoker Smokeless Tobacco Status: No Alcohol use: none Drug use: none - Family History Sister Adopted: No Living Status: Hx Family Cardiac Disorders: Yes Hx Family Respiratory Disorders: Yes Hx Family Cancer: Yes Hx Family GI Disorders: Yes (cirrhosis) Hx Family Endocrine Disorder: No Hx Family Neuromuscular Disorders: No Hx Family Neurologic Disorders: No Hx Family HEENT Disorders: No Hx Family Autoimmune Disorders: No Mother Adopted: No Family Member Ethnicity: Non- Living Status: Hx Family Cardiac Disorders: Yes Hx Family Medical Disorders: Yes (Gout) Father Hx Family Cardiac Disorders: Yes (MA) Son Adopted: No Family Member Ethnicity: Non- Living Status: Still Living Hx Family Cardiac Disorders: Yes (HTN) Hx Family Respiratory Disorders: No Hx Family Cancer: No Hx Family GI Disorders: No Hx Family Endocrine Disorder: No Hx Family Neuromuscular Disorders: No Hx Family Neurologic Disorders: No Hx Family HEENT Disorders: No Hx Family Autoimmune Disorders: No Medications and Allergies Cholecalciferol (Vitamin D3) [Vitamin D3] 50,000 unit PO WESA 11/02/14 [History] Magnesium Oxide [Magnesium] 400 mg PO BID 11/02/14 [History] Aspirin 81 mg PO DAILY 30 Days 11/08/14 [Rx] Ipratropium/Albuterol Neb [Duoneb] 3 ml IH Q4HR PRN 04/26/15 [History] Rifaximin [Xifaxan] 550 mg PO BID #60 tablet 05/01/15 [Rx] Cyanocobalamin (Vitamin B-12) [Vitamin B12] 1,000 mcg PO 2XW 09/03/15 [History] Zinc Sulfate 220 mg PO BID 09/03/15 [History] Insulin DETEMIR [Levemir Flextouch] 26 unit SQ BID 10/07/15 [History] Insulin LISPRO [Humalog Kwikpen U-100] 0 unit SQ ACHS 10/07/15 [History] Lactulose 15 ml PO TID PRN 10/07/15 [History] Levothyroxine [Synthroid] 100 mcg PO QAM 10/07/15 [History] Oxygen 2 l NS AD 12/22/15 [History] Ondansetron ODT [Zofran ODT] 4 mg SL TID PRN 04/02/16 [History] raNITIdine HCl [Ranitidine HCl] 150 mg PO BID 04/02/16 [History] Diclofenac Sodium 1 appl TP QID PRN 04/09/16 [History] Sucralfate [Carafate] 1 gm PO QIDAC 30 Days 04/15/16 [Rx] Midodrine HCl 2.5 mg PO TID 05/19/16 [History] HYDROcodone/Acet 5/325 mg [[place] 5-325 mg] 1 tab PO Q8H PRN 07/14/16 [History] Pantoprazole Sodium [Protonix] 40 mg PO DAILY 07/14/16 [History] Allergies No Known Allergies Allergy (Verified 07/14/16 11:53) Review of Systems All systems PM: reviewed and no additional remarkable complaints except as stated All systems PM: A 10-system review of systems was performed and is negative for pertinent findings except as documented above in the HPI. General Surgery Exam Initial Vital Signs Temp Pulse Resp BP Pulse Ox 98.1 F 77 18 143/68 97 07/24/16 16:46 07/24/16 16:46 07/24/16 16:46 07/24/16 16:46 07/24/16 16:46 - General physical appearance no distress, no pain - Eyes PERRL, normal ocular movement - Neck no masses, trachea midline, no lymphadectomy - Respiratory normal expansion, normal respiratory effort, other (decreased breath sounds at the bases. ) - Cardiovascular Cardiovascular exam: Present: RRR, no murmurs/rubs/gallops - Abdomen Abdomen general surgery: Present: soft, non tender (obese. Noted umbilical hernia. Reducible. No tympany.) - Integumentary Integumentary general surgery: Present: warm and dry - Neurologic Present: CN 2-12 grossly intact - Musculoskeletal Present: other (No clubbing or cyanosis evident.) - Psychiatric Psychiatric general surgery: Present: A&Ox3 Exam Initial Vital Signs Temp Pulse Resp BP Pulse Ox 98.1 F 77 18 143/68 97 07/24/16 16:46 07/24/16 16:46 07/24/16 16:46 07/24/16 16:46 07/24/16 16:46 Results - Labs 07/27/16 04:05 07/27/16 04:05 Abnormal lab results WBC 3.7 K/mcL (4.3-11.1) L 07/26/16 04:50 RBC 3.49 M/mcL (3.82-4.97) L 07/26/16 04:50 Hgb 10.7 g/dL (11.5-15.4) L D 07/26/16 04:50 Hct 32.7 % (35.3-44.9) L 07/26/16 04:50 RDW 18.5 % (11.5-14.5) H 07/26/16 04:50 Plt Count 42 K/mcL (140-400) L 07/26/16 04:50 Platelet Estimate Decreased (Normal) L 07/26/16 04:50 Immature Plt Fraction 6.3 % (1.1-6.1) H 07/25/16 06:20 Polychromasia 1+ (Not Present) A 07/26/16 04:50 Hypochromasia Present (Not Present) A 07/26/16 04:50 Percent Retic 3.8 % (1.6-2.8) H 07/24/16 21:25 PT 13.5 Seconds (9.4-12.1) H 07/25/16 06:20 Chloride 113 mEq/L (98-109) H 07/26/16 04:50 BUN 53 mg/dL (7-20) H 07/26/16 04:50 Creatinine 2.13 mg/dL (0.57-1.11) H 07/26/16 04:50 Est GFR ( Amer) 27 (> 60) L 07/26/16 04:50 Est GFR (Non-Af Amer) 22 (> 60) L 07/26/16 04:50 Glucose 103 mg/dL (70-99) H 07/26/16 04:50 Calculated Osmolality 305 (280-300) H 07/26/16 04:50 Calcium 7.9 mg/dL (8.6-10.8) L 07/26/16 04:50 Iron 191 mcg/dL (50-170) H 07/25/16 10:00 % Saturation 89 % (15-50) H 07/25/16 10:00 Transferrin 153 mg/dL (180-382) L 07/25/16 10:00 Total Bilirubin 2.8 mg/dL (0.2-1.2) H D 07/25/16 06:20 AST 35 Units/L (5-34) H 07/25/16 06:20 Alkaline Phosphatase 132 Units/L (38-126) H 07/25/16 06:20 Serum Total Protein 5.8 g/dL (6.0-8.3) L 07/25/16 06:20 Albumin 2.9 g/dL (3.5-5.0) L 07/25/16 06:20 Albumin/Globulin Ratio 1.0 (1.1-2.2) L 07/25/16 06:20 Folate 6.8 ng/mL (7.0-31.4) L 07/25/16 10:00 Diabetes panel 07/26/16 Range/Units 04:50 Sodium 140 (136-145) mEq/L Potassium 4.1 (3.5-4.5) mEq/L Chloride 113 H (98-109) mEq/L Carbon Dioxide 19 (19-29) mEq/L BUN 53 H (7-20) mg/dL Creatinine 2.13 H (0.57-1.11) mg/dL Glucose 103 H (70-99) mg/dL Calcium 7.9 L (8.6-10.8) mg/dL Calcium panel 07/26/16 Range/Units 04:50 Calcium 7.9 L (8.6-10.8) mg/dL Pituitary panel 07/26/16 Range/Units 04:50 Sodium 140 (136-145) mEq/L Potassium 4.1 (3.5-4.5) mEq/L Chloride 113 H (98-109) mEq/L Carbon Dioxide 19 (19-29) mEq/L BUN 53 H (7-20) mg/dL Creatinine 2.13 H (0.57-1.11) mg/dL Glucose 103 H (70-99) mg/dL Calcium 7.9 L (8.6-10.8) mg/dL Adrenal panel 07/26/16 Range/Units 04:50 Sodium 140 (136-145) mEq/L Potassium 4.1 (3.5-4.5) mEq/L Chloride 113 H (98-109) mEq/L Carbon Dioxide 19 (19-29) mEq/L BUN 53 H (7-20) mg/dL Creatinine 2.13 H (0.57-1.11) mg/dL Glucose 103 H (70-99) mg/dL Calcium 7.9 L (8.6-10.8) mg/dL All other labs normal. Consult Discharge Plan - Plan Referrals: Michael Ibanez DO [Primary Care Provider] - (Web Request 07/25/16)
[2016-07-26] MEDS: Iron Sucrose Complex 200 MG in 0.9 % Sodium Chloride 100 ML IVPB SCH (09:33)
--- NOTE | 2016-07-26 11:21 | Internal Med Progress Note ---
Date of Encounter: 07/26/16 Time of Encounter: 08:35 - Assessment and plan (1) Acute blood loss anemia Current Visit: Yes Status: Acute Assessment and plan: From recent GI bleed. Surgery consulted for further evaluation. Recommend CT scan of the abdomen and pelvis. GI bleeding nuclear scan was done and did not show any active bleeding. Hemoglobin counts have improved after the patient received blood transfusion. Continue to monitor blood counts. Follow surgery recommendations. High risk for complications. Continue IV PPI and IV octreotide. Keep nothing by mouth for now. (2) Anemia Current Visit: Yes Status: Acute Assessment and plan: Management as above. Will also replace folic acid. Low folic acid levels. We will replace. Qualifiers: Anemia type: other cause Other causes of anemia: chronic disease, other Qualified Code(s): D63.8 - Anemia in other chronic diseases classified elsewhere (3) CKD (chronic kidney disease) stage 4, GFR 15-29 ml/min Current Visit: Yes Status: Chronic Assessment and plan: Stable renal function. (4) Hyperkalemia Current Visit: No Status: Resolved (5) Chronic respiratory failure Current Visit: Yes Status: Chronic Assessment and plan: Continue O2 supplementation Qualifiers: Respiratory failure complication: hypoxia Qualified Code(s): J96.11 - Chronic respiratory failure with hypoxia (6) Cirrhosis Current Visit: No Status: Chronic Assessment and plan: Will check CT of the abdomen to look for any ascites. Continue supportive care with folic acid, lactulose, PPI Qualifiers: Hepatic cirrhosis type: alcoholic cirrhosis Ascites presence: with ascites Qualified Code(s): K70.31 - Alcoholic cirrhosis of liver with ascites (7) Diabetes Current Visit: Yes Status: Chronic Assessment and plan: Blood sugars are low this morning due to nothing by mouth status. Will start patient on D5 solution infusion Qualifiers: Diabetes mellitus type: type 2 Diabetes mellitus complication status: with kidney complications Diabetes mellitus complication detail: with chronic kidney disease Diabetes mellitus penitentiary insulin use: with molecular physicist use Chronic kidney disease stage: stage 3 (moderate) Qualified Code(s): E11.22 - Type 2 diabetes mellitus with diabetic chronic kidney disease; N18.3 - Chronic kidney disease, stage 3 (moderate); Z79.4 - qa consultant (current) use of insulin (8) Esophageal varices in cirrhosis Current Visit: Yes Status: Chronic Assessment and plan: On PPI and octreotide (9) Essential hypertension Current Visit: Yes Status: Chronic Assessment and plan: Well-controlled blood pressure (10) Portal hypertension Current Visit: Yes Status: Chronic Assessment and plan: On octreotide currently - Subjective Interval history: Patient lying in bed. Awakes to verbal commands. Denies any new complaints at this time. She did have an acute episode of lower GI bleed last night and was started on IV PPI and IV octreotide after discussing with general surgery. She also received 3 units of packed red blood cells and 1 unit of packed platelets. She has not had any further bleeding since then. Denies any abdominal pain at this time. No hematemesis, nausea or vomiting. - Constitutional Vitals: Temp Pulse Resp BP Pulse Ox 98.3 F 77 16 130/62 97 07/26/16 07:09 07/26/16 07:09 07/26/16 07:59 07/26/16 07:09 07/26/16 08:45 General appearance: Present: cooperative, mild distress, A&O X 3, answers questions appropriately - Neck Neck exam general surgery: Present: supple, trachea midline. Absent: lymphadenopathy - Respiratory Respiratory exam: Present: CTAB. Absent: accessory muscle use, rales, rhonchi, wheezes - Cardiovascular Cardiovascular exam: Present: RRR, +S1, +S2. Absent: diastolic murmur, gallop, rubs, systolic murmur - GI/Abdominal GI/Abdominal exam: Present: normal bowel sounds, soft, no peritoneal signs. Absent: distended, tenderness - Extremities Exam Extremities exam: Present: warm, radial pulses palpable and symetrical. Absent : calf tenderness, cyanotic, pedal edema - Neurological Exam Neurological exam: Present: alert, no focal deficits. Absent: facial droop, speech deficit - Skin Skin exam: Present: dry, intact, pallor Internal Medicine: Result - Labs CBC & Chem 7: 07/26/16 04:50 07/26/16 04:50 Labs: Short CBC 07/26/16 Range/Units 04:50 WBC 3.7 L (4.3-11.1) K/mcL Hgb 10.7 L D (11.5-15.4) g/dL Hct 32.7 L (35.3-44.9) % Plt Count 42 L (140-400) K/mcL Neutrophils # 2.2 (1.6-8.9) K/mcL BMP 07/26/16 04:50 Sodium 140 Potassium 4.1 Chloride 113 H Carbon Dioxide 19 BUN 53 H Creatinine 2.13 H Glucose 103 H Calcium 7.9 L - ABG Interpretation ABG results: PT/INR, D-dimer PT 13.5 Seconds (9.4-12.1) H 07/25/16 06:20 - Impressions Impressions GI Bleed Scan Nuclear Medicine 07/25/16 20:51 IMPRESSION: No definite evidence of active GI bleeding during acquisition. RECOMMENDATIONS: If the patient shows hemodynamic signs of an active bleed in the next 20 hours, additional images can be acquired. D/ / Vijay Chao MD / Vijay Chao MD Interpreting Provider: Vijay hCao MD Consult Discharge Plan - Plan Referrals: Michael Ibanez DO [Primary Care Provider] - (Web Request 07/25/16) - Attending Attestation This document has been at least partially created by [employer] recognition technology by Dr. Monreal. Errors in grammar, wording or other phrases may exist. If errors are found after the documentation is signed, they will be addressed individually in the addendum section of this document when appropriate.
[2016-07-26] MEDS: Octreotide 400 MCG in 0.9 % Sodium Chloride 100 ML IVC SCH (12:37)
[2016-07-26] MEDS: D5% in 0.45% NACL 1,000 ML IVC SCH (12:38)
[2016-07-26 15:32] LABS: Hematocrit 34.3 % (35.3-44.9)
[2016-07-27] MEDS: Ipratropium/Albuterol Neb 3 ML IH SCH ×7 (00:18→23:18)
[2016-07-27] MEDS: D5% in 0.45% NACL 1,000 ML IVC SCH ×2 (01:40→17:38)
[2016-07-27] MEDS: Pantoprazole 40 MG in 0.9 % Sodium Chloride Mini Bag 100 ML IVC SCH ×4 (01:40→17:39)
[2016-07-27] MEDS: Octreotide 400 MCG in 0.9 % Sodium Chloride 100 ML IVC SCH (04:03)
[2016-07-27 04:27] LABS: Hemoglobin 10.4 g/dL (11.5-15.4); Immature Granulocytes % 0.3 % (0-4); Mean Corpuscular Volume 94.8 fL (83.0-100.0)
[2016-07-27 04:29] LABS: Basophils % 0.9 %; Eosinophils # 0.3 K/mcL (0.0-0.6); Eosinophils % 8.4 %; Hematocrit 33.1 % (35.3-44.9); Immature Platelets 5.9 % (1.1-6.1); Lymphocytes # 0.6 K/mcL (0.6-4.6); Lymphocytes % 18.9 %; Mean Corpuscular HGB Conc 31.4 g/dL (31.6-35.5); Mean Corpuscular Hemoglobin 29.8 pg (28.0-33.3); Monocytes # 0.6 K/mcL (0.0-1.3); Monocytes % 18.3 %; Neutrophils # 1.8 K/mcL (1.6-8.9); Red Blood Count 3.49 M/mcL (3.82-4.97); Red Cell Distribution Width 19.3 % (11.5-14.5); Segmented Neutrophils % 53.2 %
[2016-07-27 04:41] LABS: Calcium 7.8 mg/dL (8.6-10.8); Potassium 3.9 mEq/L (3.5-4.5)
[2016-07-27 04:43] LABS: Platelet Count 45 K/mcL (140-400)
[2016-07-27 04:46] LABS: Platelet Estimate Decreased (Normal); Reactive Lymphocytes Present (Not Present)
[2016-07-27 04:48] LABS: Anisocytosis 1+ (Not Present)
--- NOTE | 2016-07-27 07:05 | Electrocardiograph Report ---
[place] [id number] Test Date: 2016-07-24 Pat Name: Nellie Flores Department: 102 Room: 2A23 Gender: F Credit Collections Specialist: Cielo : 1940 Requested By: Cindy Mirza Order Number: [id number] Reading MD: Killian Mitchell MD Measurements Intervals [place] Rate: 78 P: -10 ME: 135 QRS: -30 QRSD: 110 T: 47 QT: 414 QTc: 448 Interpretive Statements SINUS RHYTHM BORDERLINE LEFT AXIS DEVIATION Electronically Signed On 07-27-2016 7:03:52 EDT by Killian Mitchell MD
[2016-07-27] MEDS: Insulin LISPRO 300 UNITS/3 ML VIAL SQ SCH ×4 (08:02→21:40)
--- NOTE | 2016-07-27 08:29 | Nephrology Progress Note ---
Date of Encounter: 07/27/16 Time of Encounter: 08:27 - Assessment and Plan (1) Anemia of chronic disease Current Visit: Yes Status: Acute The patient is stable stage IV chronic kidney disease. She has anemia of chronic disease which is likely multifactorial. Her anemia could be related to chronic kidney disease GI blood loss cirrhosis and hypersplenism. (2) Chronic kidney disease, stage IV (severe) Current Visit: Yes Status: Acute (3) Cirrhosis Current Visit: No Status: Chronic Qualifiers: Hepatic cirrhosis type: alcoholic cirrhosis Ascites presence: with ascites Qualified Code(s): K70.31 - Alcoholic cirrhosis of liver with ascites (4) Pancytopenia Current Visit: No Status: Chronic Subjective Interval history: Patient apparently had some rectal bleeding. General surgeries been consulted. A bleeding scan was unremarkable. Hemoglobin is 10.4 today. Renal function remained stable. Iron levels are stable. There is a slight decrease in the folate level. Objective - Vital Signs Vital signs: Vital Signs Temp Pulse Resp BP Pulse Ox 07/27/16 07:43 97.6 F 73 16 126/65 99 07/27/16 03:53 98.4 F 85 14 148/79 99 07/27/16 00:20 16 100 07/26/16 23:25 98.3 F 83 16 161/72 99 07/26/16 21:02 16 98 07/26/16 19:08 98.1 F 75 18 137/73 98 07/26/16 16:08 98.0 F 77 18 131/67 100 07/26/16 16:01 16 97 07/26/16 11:33 16 96 07/26/16 11:21 97.9 F 66 18 170/80 96 07/26/16 08:45 97 Intake and Output 07/26/16 07/27/16 07/27/16 23:59 07:59 15:59 Intake Total 280 / 280 204 / 204 Output Total 300 / 300 Balance 280 / 280 -96 / -96 Intake: IV Fluids 100 / 100 204 / 204 SandoSTATIN 400 MCG In 0. 104 / 104 9 % Sodium Chloride 100 ML @ 25 MCG/HR 6.5 mls/hr IVC .Q16H JANKI Rx#: [id number] Protonix 40 MG In 0.9 % 100 / 100 100 / 100 Sodium Chloride (Mini-Bag +) 100 ML @ 20 mls/hr IVC .Q5H JANKI Rx#: [id number] Oral 180 / 180 Output: Urine 300 / 300 Other: Meal Dinner Percent of Meal Consumed 40% Weight 81 kg Blood Glucose* 175 110 Patient Weight 07/27/16 23:59 Weight 81 kg - General Appearance Exam: Patient is alert and oriented. She is in no acute distress. Lungs diminished breath sounds. Heart regular rhythm. Abdomen is distended due to ascites. Abdomen is soft. There is no tenderness. There is no lower extremity swelling. - Lab 07/27/16 04:05 07/27/16 04:05 Most recent lab results Calcium 7.8 mg/dL (8.6-10.8) L 07/27/16 04:05 Magnesium 2.5 mg/dL (1.6-2.6) 07/24/16 17:49 Consult Discharge Plan - Plan Referrals: Michael Ibanez DO [Primary Care Provider] - (Web Request 07/25/16)
[2016-07-27] MEDS ORDERED: *HR* HYDROcodone/Acet 5/325 mg TABLET PO PRN (09:03)
[2016-07-27] MEDS ORDERED: *HR* OxyCODONE Immed Rel 5 MG TABLET PO PRN (09:13)
[2016-07-27] MEDS: Insulin DETEMIR 100 UNIT/ML X5UNITS SQ SCH ×2 (09:29→21:52)
[2016-07-27] MEDS: Sucralfate 1 GM TABLET PO SCH ×4 (11:00→21:53)
[2016-07-27] MEDS: Folic Acid 1 MG TABLET PO SCH (11:00)
[2016-07-27] MEDS: Iron Sucrose Complex 200 MG in 0.9 % Sodium Chloride 100 ML IVPB SCH (11:01)
[2016-07-27] MEDS ORDERED: *HR* Midazolam HCl 5 MG/5 ML VIAL IVP ONE (11:11)
[2016-07-27] MEDS ORDERED: *HR* FentaNYL (PF) 100 MCG/2 ML VIAL ONE (11:12)
[2016-07-27] MEDS: (Rifaximin [Xifaxan] 550 MG) PO SCH (11:37)
[2016-07-27] MEDS ORDERED: Tetracaine/Benzocaine/Butamben 200MG/SPRAY (100SPY/BOT) MM ONE (11:42)
[2016-07-27] MEDS ORDERED: *HR* Promethazine 25 MG/ML VIAL IVP ONE (11:42)
[2016-07-27] MEDS ORDERED: Simethicone 40 MG/0.6 ML MLS IR ONE (11:42)
--- NOTE | 2016-07-27 11:43 | Gastroenterology Consult Note ---
<Johnnie Dupree - Last Filed: 07/27/16 11:47> Date of Encounter: 07/27/16 Time of Encounter: 10:45 - Assessment and plan (1) Cirrhosis Current Visit: No Status: Chronic Assessment and plan: MELD-Na 21, Child-Kim class C, DF 16.6. Continue Rifaximin, Zinc, and Lactulose. Titrate Lactulose to 2-4 BM daily. AFP 1 on 03/02/2016. RUQ US 2016 showed cirrhosis with no lesion. Recheck AFP and liver US. Continue Rifaximin on discharge 550 mg BID while outpatient. Continue Lactulose and titrate to 2-4 BM daily. Qualifiers: Hepatic cirrhosis type: alcoholic cirrhosis Ascites presence: with ascites Qualified Code(s): K70.31 - Alcoholic cirrhosis of liver with ascites (2) Thrombocytopenia Current Visit: No Status: Chronic Assessment and plan: Secondary to cirrhosis. (3) Ascites Current Visit: No Status: Chronic Assessment and plan: Pt completes paracentesis weekly. Unable to use Lasix d/t CKD. Continue Midodrine 2.5 mg TID. Recommend paracentesis. Qualifiers: Ascites type: other type Qualified Code(s): R18.8 - Other ascites (4) GI bleeding Current Visit: No Status: Acute Assessment and plan: EGD completed 04/14/16 with nonbleeding esophageal ulcer. Flex sig 04/14/16 negative for bleeding. Last colonoscopy was 09/01/2013 with a tubulovillous adenoma. Surgery has been consulted. If planning colonoscopy, she will require paracentesis prior to scope. Qualifiers: GI bleed type/associated pathology: unspecified gastrointestinal hemorrhage type Qualified Code(s): K92.2 - Gastrointestinal hemorrhage, unspecified (5) Anemia Current Visit: Yes Status: Acute Assessment and plan: Continue to monitor CBC and transfuse PRBC as needed. Flex sig 04/14/2011 showed internal hemorrhoids. EGD 04/14/16 with non-bleeding esophageal ulcer. Qualifiers: Qualified Code(s): D64.9 - Anemia, unspecified - Time Spent With Patient Total time spent is greater than 50% in coordination of care (as documented) at patient's floor/unit and/or counseling patient: GI History of Present Illness - Data of Consult Patient: known to practice within the last 3 years Consult date: 07/27/16 Requesting Physician: Debra Monreal MD - Consult Narrative Reason for consult: cirrhosis, GI bleed History of present illness: Ms. Flores is a 76 year old female with PMHx of cirrhosis, recurrent hepatic encephalopathy, pancytopenia, CKD stage III, T2DM, CKD, HTN, COPD. She receives paracentesis which are scheduled every week. She has a history of grade 2 esophageal varices which were previously banded. Pt was instructed to present to the ED due to anemia. On 07/20 Hgb 7.2 which was rechecked 07/24 and was 6.9 and told to go to the ED. She has received 6 units of PRBC and 1 unit platelets since admission. Her son stated that she was having "dark stools" on and denied BRBPR. FOBT was negative. Gastric bleeding scan was negative and CT A/P showed large volume of ascites, cirrhosis, and cholelithiasis with suspected small CBD calculus. Procedures: Flexible sigmoidoscopy 04/14/2016 with internal hemorrhoids. EGD 04/14/2016 with nonbleeding esophageal ulcer, portal hypertensive gastropathy Colonoscopy 09/01/2013: With tubulovillous adenoma, poor prep. EGD 10/10/2015 with grade 2 esophageal varices, completely eradicated, banded. Portal hypertensive gastropathy. EGD 04/30/2015 with grade 2 varices, banded, portal hypertensive gastropathy NSAID: ASA Anticoagulation: None Past Med Surg Social Fam HX - Past Medical History Medical history: arthritis, cirrhosis, COPD, dementia, diabetes, GERD, glaucoma , hepatitis, hyperlipidemia, hypertension, liver disease, osteoporosis, renal disease, thyroid disease Psychiatric history: no psych history - Past Surgical History Surgical History: herniorrhaphy - Social History Smoking Status: Never smoker Smokeless Tobacco Status: No Alcohol use: none Drug use: none - Family History Sister Adopted: No Living Status: Hx Family Cardiac Disorders: Yes Hx Family Respiratory Disorders: Yes Hx Family Cancer: Yes Hx Family GI Disorders: Yes (cirrhosis) Hx Family Endocrine Disorder: No Hx Family Neuromuscular Disorders: No Hx Family Neurologic Disorders: No Hx Family HEENT Disorders: No Hx Family Autoimmune Disorders: No Mother Adopted: No Family Member Ethnicity: Non- Living Status: Hx Family Cardiac Disorders: Yes Hx Family Medical Disorders: Yes (Gout) Father Hx Family Cardiac Disorders: Yes ([place]) Son Adopted: No Family Member Ethnicity: Non- Living Status: Still Living Hx Family Cardiac Disorders: Yes (HTN) Hx Family Respiratory Disorders: No Hx Family Cancer: No Hx Family GI Disorders: No Hx Family Endocrine Disorder: No Hx Family Neuromuscular Disorders: No Hx Family Neurologic Disorders: No Hx Family HEENT Disorders: No Hx Family Autoimmune Disorders: No - Gastrointestinal Gastrointestinal: Present: as per HPI - Constitutional Constitutional: as per HPI - EENT Eyes: as per HPI Ears: Present: as per HPI Nose, mouth and throat: Present: as per HPI - Cardiovascular Cardiovascular ROS: Present: as per HPI - Respiratory Respiratory IM: Present: as per HPI - Genitourinary Genitourinary: Absent: change in color, Urinary frequency - Neurological ROS Neurological GI: Present: as per HPI - Hematologic/Lymphatic Hematologic/Lymphatic pediatric: Present: as per HPI - Musculoskeletal Musculoskeletal ROS GI: Present: as per HPI - Integumentary Integumentary GI: Present: as per HPI - Psychiatric ROS Psychiatric GI: Present: as per HPI - Endocrine Endocrine IM: Present: as per HPI - Constitutional Vitals: Temp Pulse Resp BP Pulse Ox 97.6 F 73 16 126/65 99 07/27/16 07:43 07/27/16 07:43 07/27/16 07:43 07/27/16 07:43 07/27/16 07:43 General appearance: Present: cooperative, A&O X 3, no acute distress, answers questions appropriately - Head Head exam: Present: atraumatic, normocephalic - Eye Eye exam: Present: normal appearance, sclera anicteric - ENT ENT exam: Present: mucous membranes moist - Neck Neck exam general surgery: Present: normal inspection, trachea midline - Respiratory Respiratory exam: Present: CTAB. Absent: rales, rhonchi - Cardiovascular Cardiovascular exam: Present: RRR, +S1, +S2 - GI/Abdominal GI/Abdominal exam: Present: distended, firm, soft, no peritoneal signs. Absent : guarding, tenderness - Expanded GI/Abdominal Exam GI/Abdominal exam expanded: Present: ascites - Rectal Rectal exam: Present: deferred - Extremities Exam Extremities exam: Present: warm - Neurological Exam Neurological exam: Present: no focal deficits - Psychiatric Psychiatric exam: Present: normal affect, normal mood - Skin Skin exam: Present: dry, intact, normal color, warm Results - Labs CBC & Chem 7: 07/27/16 04:05 07/27/16 04:05 Labs: Last Result Calcium 7.8 mg/dL (8.6-10.8) L 07/27/16 04:05 Iron 191 mcg/dL (50-170) H 07/25/16 10:00 % Saturation 89 % (15-50) H 07/25/16 10:00 Transferrin 153 mg/dL (180-382) L 07/25/16 10:00 Ferritin 115 ng/ml (5-204) 07/25/16 10:00 Vitamin B12 691 pg/mL (213-816) 07/25/16 10:00 Folate 6.8 ng/mL (7.0-31.4) L 07/25/16 10:00 Stool Occult Blood Negative (Negative) 07/24/16 18:24 Entire Visit Hgb 10.4 g/dL (11.5-15.4) L 07/27/16 04:05 Hct 33.1 % (35.3-44.9) L 07/27/16 04:05 Haptoglobin 56 mg/dL (30-200) 07/24/16 22:25 PT 13.5 Seconds (9.4-12.1) H 07/25/16 06:20 Ferritin 115 ng/ml (5-204) 07/25/16 10:00 Total Bilirubin 2.8 mg/dL (0.2-1.2) H D 07/25/16 06:20 AST 35 Units/L (5-34) H 07/25/16 06:20 ALT 22 Units/L (0-55) 07/25/16 06:20 Folate 6.8 ng/mL (7.0-31.4) L 07/25/16 10:00 - ABG ABG results: PT/INR, D-dimer PT 13.5 Seconds (9.4-12.1) H 07/25/16 06:20 - Impressions Impressions Abdomen/Pelvis CT 07/26/16 09:15 IMPRESSION: 1. Large volume ascites. Ventral abdominal wall hernia contains ascites. 2. Cirrhosis. Splenomegaly. 3. Cholelithiasis. Suspected small common bile duct calculus. D/ / 07/26/2016 12:59:59 Gene Thomson MD / Elizabeth Bee Interpreting Provider: Gene Thomson MD Consult Discharge Plan - Plan Referrals: Michael Ibanez DO [Primary Care Provider] - (Web Request 07/25/16) Prescriptions: Folic Acid 1 mg PO DAILY #30 tablet <Cyn Stylesed - Last Filed: 07/27/16 15:06> Date of Encounter: 07/27/16 Time of Encounter: 14:00 - Time Spent With Patient Total time spent is greater than 50% in coordination of care (as documented) at patient's floor/unit and/or counseling patient: GI History of Present Illness - Data of Consult Requesting Physician: Debra Monreal MD - Consult Narrative History of present illness: Ms. Flores is a 76 year old female - Constitutional Vitals: Temp Pulse Resp BP Pulse Ox 97.6 F 87 16 146/76 97 07/27/16 07:43 07/27/16 11:55 07/27/16 11:55 07/27/16 11:55 07/27/16 11:55 Results - Labs CBC & Chem 7: 07/27/16 04:05 07/27/16 04:05 Labs: Last Result Calcium 7.8 mg/dL (8.6-10.8) L 07/27/16 04:05 Iron 191 mcg/dL (50-170) H 07/25/16 10:00 % Saturation 89 % (15-50) H 07/25/16 10:00 Transferrin 153 mg/dL (180-382) L 07/25/16 10:00 Ferritin 115 ng/ml (5-204) 07/25/16 10:00 Vitamin B12 691 pg/mL (213-816) 07/25/16 10:00 Folate 6.8 ng/mL (7.0-31.4) L 07/25/16 10:00 Stool Occult Blood Negative (Negative) 07/24/16 18:24 Entire Visit Hgb 10.4 g/dL (11.5-15.4) L 07/27/16 04:05 Hct 33.1 % (35.3-44.9) L 07/27/16 04:05 Haptoglobin 56 mg/dL (30-200) 07/24/16 22:25 PT 13.5 Seconds (9.4-12.1) H 07/25/16 06:20 Ferritin 115 ng/ml (5-204) 07/25/16 10:00 Total Bilirubin 2.8 mg/dL (0.2-1.2) H D 07/25/16 06:20 AST 35 Units/L (5-34) H 07/25/16 06:20 ALT 22 Units/L (0-55) 07/25/16 06:20 Folate 6.8 ng/mL (7.0-31.4) L 07/25/16 10:00 - ABG ABG results: PT/INR, D-dimer PT 13.5 Seconds (9.4-12.1) H 07/25/16 06:20 - Attending Attestation I examined this patient and my medical decision-making was reviewed with the WIGS SALESPERSON/PA/Advanced Practice Nurse/Resident Physician. I agree with the documented findings, disposition and treatment plan as described except to the extent set forth below. Pt with episode of rectal bleeding, recurrent anemia. EGD negative. Rec: Colon in coming weeks if cont to have anemia
--- NOTE | 2016-07-27 11:43 | Pre-Sedation Evaluation ---
Pre-sedation evaluation - Pre-sedation checklist Date of procedure: 07/27/16 Procedure: EGD Recent Vitals: Last Vital Signs Temp 97.6 F 07/27/16 07:43 Pulse 73 07/27/16 07:43 Resp 16 07/27/16 07:43 BP 126/65 07/27/16 07:43 Pulse Ox 99 07/27/16 07:43 H&P (including ROS) documented in medical record: Yes Previous reaction to sedatives/anesthetics: No Dietary Status: NPO after Midnight Airway Assessment: Patient can open mouth completely, TMJ function normal Dentition: dentures removed Possible difficult airway: No ASA Classification *see protocol: CLASS III-Severe systemic disease Plan of Care: Pt appropriate candidate for procedure/moderate/conscious sedation
[2016-07-27] MEDS: *HR* FentaNYL (PF) 100 MCG/2 ML VIAL IVP PRN ×2 (11:45→11:49)
[2016-07-27] MEDS: *HR* Midazolam HCl 5 MG/5 ML VIAL IVP PRN ×2 (11:45→11:49)
--- NOTE | 2016-07-27 11:59 | Event Note ---
Date of Encounter: 07/27/16 Time of Encounter: 11:57 EGD performed; noted erythema at the level of the GE junction (possible varicosity present). Biopsied. Moderate erythema noted in the stomach, biopsied. OK to resume full liquids and advance as tolerated. Would not recommend colonoscopy due to significant presence of ascites. Will sign off, thank you.
--- NOTE | 2016-07-27 13:01 | Anesthesia Evaluation PreOp ---
Date of Encounter: 07/27/16 Time of Encounter: 12:58 - Past History Planned Operation: EGD Cardiac History: HTN, Hyperlipidemia Pulmonary History: COPD RN PLASTICS History: Other (dementia) Other Medical History: Hepatic (cirrhosis, hepatitis), Renal (stage 4 CKD), Diabetes Type II, Thyroid, GERD Anesthesia History: Past Anesthesia Alcohol Use: none Drug use: none Medications and Allergies Cholecalciferol (Vitamin D3) [Vitamin D3] 50,000 unit PO WESA 11/02/14 [History] Magnesium Oxide [Magnesium] 400 mg PO BID 11/02/14 [History] Aspirin 81 mg PO DAILY 30 Days 11/08/14 [Rx] Ipratropium/Albuterol Neb [Duoneb] 3 ml IH Q4HR PRN 04/26/15 [History] Rifaximin [Xifaxan] 550 mg PO BID #60 tablet 05/01/15 [Rx] Cyanocobalamin (Vitamin B-12) [Vitamin B12] 1,000 mcg PO 2XW 09/03/15 [History] Zinc Sulfate 220 mg PO BID 09/03/15 [History] Insulin DETEMIR [Levemir Flextouch] 26 unit SQ BID 10/07/15 [History] Insulin LISPRO [Humalog Kwikpen U-100] 0 unit SQ ACHS 10/07/15 [History] Lactulose 15 ml PO TID PRN 10/07/15 [History] Levothyroxine [Synthroid] 100 mcg PO QAM 10/07/15 [History] Oxygen 2 l NS AD 12/22/15 [History] Ondansetron ODT [Zofran ODT] 4 mg SL TID PRN 04/02/16 [History] raNITIdine HCl [Ranitidine HCl] 150 mg PO BID 04/02/16 [History] Diclofenac Sodium 1 appl TP QID PRN 04/09/16 [History] Sucralfate [Carafate] 1 gm PO QIDAC 30 Days 04/15/16 [Rx] Midodrine HCl 2.5 mg PO TID 05/19/16 [History] HYDROcodone/Acet 5/325 mg [[place] 5-325 mg] 1 tab PO Q8H PRN 07/14/16 [History] Pantoprazole Sodium [Protonix] 40 mg PO DAILY 07/14/16 [History] Allergies No Known Allergies Allergy (Verified 07/14/16 11:53) - Meds/Allergy Pre-op Review Medications Reviewed: Yes Allergies Reviewed: Yes Beta Blockers on Current Med List: No Anesthesia Results - Labs 07/27/16 04:05 07/27/16 04:05 - Imaging EKG: report reviewed (07/24/2016 SR , borderline LAD) Additional studies: 10/07/2015 Echo LVEF 60% mild LV diastolic dysfunction dilated RV with normal function no significant valvular dysfunction ascites present in subcostal imaging Anesthesia Exam Vital Signs/O2 Sat/Glucose, Most Recent Temp Pulse Resp BP Pulse Ox 97.6 F 87 16 146/76 97 07/27/16 07:43 07/27/16 11:55 07/27/16 11:55 07/27/16 11:55 07/27/16 11:55 Blood Glucose* 83 Height: 6' Weight: 178 lbs NPO (# of Hours): 8 Pain Scale: 0 Pain Scale Used: Numeric (1 - 10) Anesthesia Assess/Plan ASA Score: 3 Modified [place] Scale for Level of Consciousness: Cooperative, oriented, and tranquil Anesthetic Plan: MAC Monitoring Plan: Standard Monitors
--- NOTE | 2016-07-27 15:00 | Discharge Summary ---
Date of Encounter: 07/27/16 Time of Encounter: 11:40 - Discharge Diagnosis (1) Acute blood loss anemia Priority: Primary Status: Acute (2) Anemia Priority: Secondary Status: Acute Qualifiers: Anemia type: other cause Other causes of anemia: chronic disease, other Qualified Code(s): D63.8 - Anemia in other chronic diseases classified elsewhere (3) CKD (chronic kidney disease) stage 4, GFR 15-29 ml/min Priority: Secondary Status: Chronic (4) Hyperkalemia Priority: Secondary Status: Resolved (5) Chronic respiratory failure Priority: Secondary Status: Chronic Qualifiers: Respiratory failure complication: hypoxia Qualified Code(s): J96.11 - Chronic respiratory failure with hypoxia (6) Cirrhosis Priority: Secondary Status: Chronic Qualifiers: Hepatic cirrhosis type: alcoholic cirrhosis Ascites presence: with ascites Qualified Code(s): K70.31 - Alcoholic cirrhosis of liver with ascites (7) Diabetes Priority: Secondary Status: Chronic Qualifiers: Diabetes mellitus type: type 2 Diabetes mellitus complication status: with kidney complications Diabetes mellitus complication detail: with chronic kidney disease Diabetes mellitus alf insulin use: with long term care administrator use Chronic kidney disease stage: stage 3 (moderate) Qualified Code(s): E11.22 - Type 2 diabetes mellitus with diabetic chronic kidney disease; N18.3 - Chronic kidney disease, stage 3 (moderate); Z79.4 - long term care administrator (current) use of insulin (8) Esophageal varices in cirrhosis Priority: Secondary Status: Chronic (9) Essential hypertension Priority: Secondary Status: Chronic (10) Portal hypertension Priority: Secondary Status: Chronic - Discharge Medications Prescriptions: Folic Acid 1 mg PO DAILY #30 tablet Home Medications: Cholecalciferol (Vitamin D3) [Vitamin D3] 50,000 unit PO WESA 11/02/14 [History] Magnesium Oxide [Magnesium] 400 mg PO BID 11/02/14 [History] Aspirin 81 mg PO DAILY 30 Days 11/08/14 [Rx] Ipratropium/Albuterol Neb [Duoneb] 3 ml IH Q4HR PRN 04/26/15 [History] Rifaximin [Xifaxan] 550 mg PO BID #60 tablet 05/01/15 [Rx] Cyanocobalamin (Vitamin B-12) [Vitamin B12] 1,000 mcg PO 2XW 09/03/15 [History] Zinc Sulfate 220 mg PO BID 09/03/15 [History] Insulin DETEMIR [Levemir Flextouch] 26 unit SQ BID 10/07/15 [History] Insulin LISPRO [Humalog Kwikpen U-100] 0 unit SQ ACHS 10/07/15 [History] Lactulose 15 ml PO TID PRN 10/07/15 [History] Levothyroxine [Synthroid] 100 mcg PO QAM 10/07/15 [History] Oxygen 2 l NS AD 12/22/15 [History] Ondansetron ODT [Zofran ODT] 4 mg SL TID PRN 04/02/16 [History] raNITIdine HCl [Ranitidine HCl] 150 mg PO BID 04/02/16 [History] Diclofenac Sodium 1 appl TP QID PRN 04/09/16 [History] Sucralfate [Carafate] 1 gm PO QIDAC 30 Days 04/15/16 [Rx] Midodrine HCl 2.5 mg PO TID 05/19/16 [History] HYDROcodone/Acet 5/325 mg [[place] 5-325 mg] 1 tab PO Q8H PRN 07/14/16 [History] Pantoprazole Sodium [Protonix] 40 mg PO DAILY 07/14/16 [History] Folic Acid 1 mg PO DAILY #30 tablet 07/27/16 [Rx] Allergies/Adverse Reactions: Allergies No Known Allergies Allergy (Verified 07/14/16 11:53) Procedures/tests Complete & Pending: Procedures Performed prior 72 hours Category Date Time Status CT abd pelvis wo no iv no oral [CT] Stat Cat Scan 07/26/16 09:15 Draft NM GI bleeding [NM] Stat Exams 07/25/16 20:51 Completed US liver [US] Routine Exams 07/27/16 20:00 Ordered Date of admission: 07/24/16 19:43 Primary care physician: Michael Ibanez Consults: 07/24/16 19:49 Consult to Gastroenterology [CONS] Routine Consulting Provider: Gastroenterology [facility] Reason for Consult: Hx cirrhosis with ascites & weekly paracentesis. Hx chronic GI bleed Time Notified: 17:30 Call Completed: Yes 07/24/16 21:43 Consult to Boat Puller [CONS] Routine Reason for SW Consult: Patient receives home health aid daily and sees an RN once per week. This is through [facility]. 07/25/16 11:46 Consult to Oncology Hematology [CONS] Routine Consulting Provider: Leonora Baxter Reason for Consult: Anemia Time Notified: 11:47 Call Completed: Yes 07/25/16 20:58 Consult to Surgery [CONS] Routine Consulting Provider: Celestino Thornton Reason for Consult: severe rectal bleed Call Completed: Yes Discharging clinician: Debra Monreal Anticipated date of discharge: 07/28/16 - Patient Status Disposition: Home Health Service Condition: Fair Functional capacity at discharge: wheelchair bound Overall status at discharge: patient is progressing back to baseline - Discharge Instructions Instructions: Anemia (GEN) Follow Up With: Michael Ibanez DO [Primary Care Provider] - (Web Request 07/25/16) - Diet and Activity Activity: as per physical therapy, increase activity as tolerated, wear oxygen at all times Diet: low fat, low cholesterol, low salt diet, other (fluid restriction to 1.5L/ day) Hospital course: Ms. Flores is a 76 year old female patient with a history of cirrhosis, portal hypertension, ascites and receives paracentesis as outpatient was admitted here with severe anemia. Patient has been following up with GI as outpatient and has had upper GI endoscopy as recently as March of this year which showed a nonbleeding esophageal ulcer with portal hypertensive gastropathy. On initial presentation to the ER, she was found to have a hemoglobin of 6.5. One week prior she had a low hemoglobin and had received blood transfusion. Given her recurrent anemia, she was hospitalized here and given blood transfusion again. She had reported some dark colored stools. However, during her stay here, she developed an episode of bright red bleeding per rectum. Her last flexible sigmoidoscopy which was done in March had shown hemorrhoids. Surgery was consulted over the weekend for evaluation. Patient underwent upper GI endoscopy today and was found to no active bleeding but there was moderate erythema noted in the stomach. The patient has significant ascites and so colonoscopy was contraindicated. Discussed her case with GI and they recommend outpatient follow-up for further management of for anemia. This morning her hemoglobin counts were 10.4. She is feeling much better and is stable for discharge home. She will follow up with GI as outpatient. She did have low folic acid levels and will be on oral replacement therapy. Hematology was also consulted due to her anemia and they recommended a GI bleeding scan which was negative for any active bleeding. She also received IV iron per their recommendations. She does receive home health at home, which will be continued. She will be discharged tomorrow morning after she undergoes paracentesis. - Time Spent with Patient Total time spent providing and/or coordinating discharge services: Greater than 30 minutes (42 min) - Constitutional Vitals: Temp Pulse Resp BP Pulse Ox 97.6 F 87 16 146/76 97 07/27/16 07:43 07/27/16 11:55 07/27/16 11:55 07/27/16 11:55 07/27/16 11:55 General appearance: Present: cooperative, A&O X 3, no acute distress, answers questions appropriately - Neck Neck exam general surgery: Present: supple, trachea midline. Absent: lymphadenopathy - Respiratory Respiratory exam: Present: CTAB. Absent: accessory muscle use, rales, rhonchi, wheezes - Cardiovascular Cardiovascular exam: Present: RRR, +S1, +S2. Absent: diastolic murmur, gallop, rubs, systolic murmur - GI/Abdominal GI/Abdominal exam: Present: normal bowel sounds, soft, no peritoneal signs. Absent: distended, tenderness Additional comments: Ascites - Neurological Exam Neurological exam: Present: alert, oriented X3, no focal deficits. Absent: facial droop, speech deficit - Attending Attestation This document has been at least partially created by [employer] recognition technology by Dr. Monreal. Errors in grammar, wording or other phrases may exist. If errors are found after the documentation is signed, they will be addressed individually in the addendum section of this document when appropriate.
--- NOTE | 2016-07-27 15:13 | Physician Discharge Referral ---
Home Health/Hosp Referral Info Transfer to: Home Health Provider in Charge Post Discharge: PCP - Diagnosis (1) Acute blood loss anemia Priority: Primary Status: Acute (2) Anemia Priority: Secondary Status: Acute (3) CKD (chronic kidney disease) stage 4, GFR 15-29 ml/min Priority: Secondary Status: Chronic (4) Hyperkalemia Priority: Secondary Status: Resolved (5) Chronic respiratory failure Priority: Secondary Status: Chronic (6) Cirrhosis Priority: Secondary Status: Chronic (7) Diabetes Priority: Secondary Status: Chronic (8) Esophageal varices in cirrhosis Priority: Secondary Status: Chronic (9) Essential hypertension Priority: Secondary Status: Chronic (10) Portal hypertension Priority: Secondary Status: Chronic - Respiratory Orders Oxygen / L per min (2) Smoking Cessation: Smoking cessation has been advised. For more information, call the [place] Tobacco Quit Line at 1-071-SNFY-NOW. - Diet/Nutrition Diet/Nutrition Orders: Renal, Cardiac, No Concentrated Sweets - Activity Activity Orders: Walker (per PT eval) - Services Needed Following services are medically necessary services: Nursing, Physical Therapy, Occupational Therapy - Transfer Medications Prescriptions: Folic Acid 1 mg PO DAILY #30 tablet Home Medications: Cholecalciferol (Vitamin D3) [Vitamin D3] 50,000 unit PO WESA 11/02/14 [History] Magnesium Oxide [Magnesium] 400 mg PO BID 11/02/14 [History] Aspirin 81 mg PO DAILY 30 Days 11/08/14 [Rx] Ipratropium/Albuterol Neb [Duoneb] 3 ml IH Q4HR PRN 04/26/15 [History] Rifaximin [Xifaxan] 550 mg PO BID #60 tablet 05/01/15 [Rx] Cyanocobalamin (Vitamin B-12) [Vitamin B12] 1,000 mcg PO 2XW 09/03/15 [History] Zinc Sulfate 220 mg PO BID 09/03/15 [History] Insulin DETEMIR [Levemir Flextouch] 26 unit SQ BID 10/07/15 [History] Insulin LISPRO [Humalog Kwikpen U-100] 0 unit SQ ACHS 10/07/15 [History] Lactulose 15 ml PO TID PRN 10/07/15 [History] Levothyroxine [Synthroid] 100 mcg PO QAM 10/07/15 [History] Oxygen 2 l NS AD 12/22/15 [History] Ondansetron ODT [Zofran ODT] 4 mg SL TID PRN 04/02/16 [History] raNITIdine HCl [Ranitidine HCl] 150 mg PO BID 04/02/16 [History] Diclofenac Sodium 1 appl TP QID PRN 04/09/16 [History] Sucralfate [Carafate] 1 gm PO QIDAC 30 Days 04/15/16 [Rx] Midodrine HCl 2.5 mg PO TID 05/19/16 [History] HYDROcodone/Acet 5/325 mg [[place] 5-325 mg] 1 tab PO Q8H PRN 07/14/16 [History] Pantoprazole Sodium [Protonix] 40 mg PO DAILY 07/14/16 [History] Folic Acid 1 mg PO DAILY #30 tablet 07/27/16 [Rx] Allergies/Adverse Reactions: Allergies No Known Allergies Allergy (Verified 07/14/16 11:53) Certification: Further, I certify that my clinical findings support that this patient is homebound (i.e. absences from home require considerable and taxing effort and are for medical reasons or latter day services or infrequently or short duration when for other reasons) because: Homebound Reason: Patient requires assistance of a person or device to safely leave home Attestation: My signature below is to certify that this patient is under my care and that I, or nurse practitioner, or a physician's desk assistant working with me, has a face-to -face encounter with this patient.
[2016-07-27] MEDS: Pantoprazole 40 MG VIAL IVP SCH (21:53)
[2016-07-28] MEDS: Ipratropium/Albuterol Neb 3 ML IH SCH ×3 (04:32→11:23)
[2016-07-28] MEDS: Insulin LISPRO 300 UNITS/3 ML VIAL SQ SCH ×2 (07:41→11:31)
[2016-07-28] MEDS: 0.9 % Sodium Chloride 1,000 ML IVC SCH (07:42)
[2016-07-28] MEDS: Sucralfate 1 GM TABLET PO SCH ×3 (07:52→16:09)
[2016-07-28] MEDS: Folic Acid 1 MG TABLET PO SCH (07:52)
[2016-07-28] MEDS: Lactulose Oral Soln 20 GM/30 ML UDC PO PRN ×2 (07:53→16:09)
[2016-07-28] MEDS: Pantoprazole 40 MG VIAL IVP SCH (07:53)
[2016-07-28] MEDS: Insulin DETEMIR 100 UNIT/ML X5UNITS SQ SCH (07:53)
[2016-07-28] MEDS: Iron Sucrose Complex 200 MG in 0.9 % Sodium Chloride 100 ML IVPB SCH (07:53)
[2016-07-28] MEDS: D5% in 0.45% NACL 1,000 ML IVC SCH (08:14)
--- NOTE | 2016-07-28 09:43 | Internal Med Progress Note ---
Date of Encounter: 07/28/16 Time of Encounter: 09:00 - Assessment and plan (1) Anemia of chronic disease Current Visit: Yes Status: Chronic Assessment and plan: Received 6 units PRBC and 1 unit platelets during this admission. Anemia thought to be multifactorial-chronic kidney disease, cirrhosis, low folate levels. Continue iron and folic acid supplementation. (2) Melena Current Visit: Yes Status: Acute Assessment and plan: Underwent EGD which showed no evidence of active bleeding. Continue PPI and sucralfate. (3) Ascites Current Visit: Yes Status: Chronic Assessment and plan: Patient has severe cirrhosis with recurrent ascites, on weekly paracentesis. Received paracentesis today with 3.2 L fluid removal. Continue lactulose, Rifaximin and diuretics; Qualifiers: Ascites type: other type Qualified Code(s): R18.8 - Other ascites (4) Cirrhosis Current Visit: Yes Status: Chronic Qualifiers: Hepatic cirrhosis type: alcoholic cirrhosis Ascites presence: with ascites Qualified Code(s): K70.31 - Alcoholic cirrhosis of liver with ascites (5) Chronic respiratory failure Current Visit: Yes Status: Chronic Qualifiers: Respiratory failure complication: hypoxia Qualified Code(s): J96.11 - Chronic respiratory failure with hypoxia (6) Insulin dependent diabetes mellitus Current Visit: Yes Status: Chronic Assessment and plan: Patient is noted to have episodes of hypoglycemia during this hospitalization. Her blood sugar was in the low 40s today, with only minimal improvement to gluctose and glucagon. Continue Accu-Chek blood glucose monitoring. Diabetic diet. Monitor sugars closely and hold discharge for now. Discontinue sliding scale insulin and decrease long-acting insulin to 10 units twice daily. (7) Thrombocytopenia Current Visit: Yes Status: Chronic (8) Esophageal varices in cirrhosis Current Visit: Yes Status: Chronic - Subjective Interval history: Feels better; tolerates oral diet; no abdominal pain, shortness of breath; does have abdominal distension; awaiting paracentesis; - Constitutional Vitals: Temp Pulse Resp BP Pulse Ox 97.4 F L 80 17 118/67 98 07/28/16 07:32 07/28/16 07:32 07/28/16 07:32 07/28/16 07:32 07/28/16 07:45 General appearance: Present: A&O X 3, answers questions appropriately - Respiratory Respiratory exam: Present: wheezes (B/L scattered rhonchi ). Absent: accessory muscle use, rales, rhonchi - GI/Abdominal GI/Abdominal exam: Present: distended (ascites+), normal bowel sounds, soft ( ventral hernia, reducible), no peritoneal signs. Absent: tenderness Internal Medicine: Result - Labs CBC & Chem 7: 07/27/16 04:05 07/27/16 04:05 - ABG Interpretation ABG results: PT/INR, D-dimer PT 13.5 Seconds (9.4-12.1) H 07/25/16 06:20 - Impressions Impressions Abdomen/Pelvis CT 07/26/16 09:15 IMPRESSION: 1. Large volume ascites. Ventral abdominal wall hernia contains ascites. 2. Cirrhosis. Splenomegaly. 3. Cholelithiasis. Suspected small common bile duct calculus. D/ / 07/26/2016 12:59:59 Gene Thomson MD / Elizabeth Bee Interpreting Provider: Gene Thomson MD Liver Ultrasound 07/27/16 20:00 IMPRESSION: Small shrunken liver with nodular contour consistent with the history of cirrhosis. No focal hepatic abnormality. However, evaluation for HCC is best performed with MRI with contrast. Large amount of ascites. Mild nonspecific gallbladder wall thickening. No other acute features. D/ / 07/27/2016 21:11:36 Nico Gilmore MD / [email or web address] Interpreting Provider: Nico Gilmore MD Consult Discharge Plan - Plan Instructions: Folic Acid (By mouth), Gastritis (DC), Hyperkalemia (DC), Abdominal Paracentesis (DC), Anemia (GEN) Referrals: Travis Deng Jr, MD [Non-Partnered Physician] - 08/04/16 3:30 pm Prescriptions: Folic Acid 1 mg PO DAILY #30 tablet
[2016-07-28 14:20] VITALS: BP 132/70
[2016-07-28] MEDS ORDERED: Insulin DETEMIR 100 UNIT/ML X5UNITS SQ SCH (21:00)
== END 2016-07-28 16:49 | disposition home health service (06) | DRG 812 ==
LOC: 2ANU 16:34 → EMEROO 16:34 → SUATTDRO 19:43 → 2ANU 20:42
PROVIDERS: ADMIT Internal Medicine; ATTEND Internal Medicine
PROC: ENDOEBX (2016-07-27 15:30)

== ENCOUNTER 2016-08-04 09:58 | Inpatient (IN) ==
--- NOTE | 2016-08-04 10:05 | Emergency Department Note ---
Disposition Clinical Impression: Hepatic encephalopathy Ascites Qualifiers: Ascites type: other type Qualified Code(s): R18.8 - Other ascites Disposition: Admitted As Inpatient Condition: Fair Referrals: NO,PCP [Primary Care Provider] - Forms: ED Satisfaction Letter Time of Disposition: 11:14 Altered Mental Status HPI - General Chief Complaint: ED Altered Mental Status Stated Complaint: ams Time Seen by Provider: 08/04/16 10:01 Source: patient Mode of arrival: ambulatory Limitations: no limitations Nursing Notes Reviewed: Yes Vital Signs Reviewed: Yes - History of Present Illness HPI Narrative: 76-year-old with known liver disease comes in with increasing confusion. Patient was scheduled for a paracentesis today but the family could not get her awake enough to get her into the procedure. MD complaint: altered mental status, confusion Onset (ago): Just [employer] Timing confirmed by: caregiver Pain Severity: moderate Consistency of Symptoms: getting worse Context: liver disease - Related Data Home Medications Medication Instructions Recorded Confirmed Cholecalciferol (Vitamin D3) 50,000 unit PO WESA 11/02/14 07/24/16 [Vitamin D3] Magnesium Oxide [Magnesium] 400 mg PO BID 11/02/14 07/24/16 Ipratropium/Albuterol Neb [Duoneb] 3 ml IH Q4HR PRN 04/26/15 07/24/16 Cyanocobalamin (Vitamin B-12) 1,000 mcg PO 2XW 09/03/15 07/24/16 [Vitamin B12] Zinc Sulfate 220 mg PO BID 09/03/15 07/24/16 Insulin DETEMIR [Levemir Flextouch] 26 unit SQ BID 10/07/15 07/24/16 Insulin LISPRO [Humalog Kwikpen 0 unit SQ ACHS 10/07/15 07/24/16 U-100] Lactulose 15 ml PO TID PRN 10/07/15 07/24/16 Levothyroxine [Synthroid] 100 mcg PO QAM 10/07/15 07/24/16 Oxygen 2 l NS AD 12/22/15 07/24/16 Ondansetron ODT [Zofran ODT] 4 mg SL TID PRN 04/02/16 07/24/16 raNITIdine HCl [Ranitidine HCl] 150 mg PO BID 04/02/16 07/24/16 Diclofenac Sodium 1 appl TP QID PRN 04/09/16 07/24/16 Midodrine HCl 2.5 mg PO TID 05/19/16 07/24/16 HYDROcodone/Acet 5/325 mg [[place] 1 tab PO Q8H PRN 07/14/16 07/24/16 5-325 mg] Pantoprazole Sodium [Protonix] 40 mg PO DAILY 07/14/16 07/24/16 Previous Rx's Medication Instructions Recorded Aspirin 81 mg PO DAILY 30 Days 11/08/14 Rifaximin [Xifaxan] 550 mg PO BID #60 tablet 05/01/15 Sucralfate [Carafate] 1 gm PO QIDAC 30 Days 04/15/16 Folic Acid 1 mg PO DAILY #30 tablet 07/27/16 Allergies Allergy/AdvReac Type Severity Reaction Status Date / Time No Known Allergies Allergy Verified 07/14/16 11:53 All systems ED: reviewed and negative except as stated. Constitutional: Denies: fever, chills, weakness, weight change Eyes: Denies: eye pain, eye discharge, vision change ENT ED: Denies: ear pain, throat pain, dental pain, hearing loss, epistaxis, congestion, dysphagia Cardiovascular: Denies: chest pain, palpitations, dyspnea on exertion, edema, syncope Respiratory: Denies: cough, dyspnea, wheezes, hemoptysis, stridor Gastrointestinal: Denies: abdominal pain, nausea, vomiting, diarrhea, constipation, hematemesis, melena, hematochezia Genitourinary: Denies: dysuria, frequency, hematuria, discharge Musculoskeletal: Denies: back pain, neck pain, arthralgia, myalgia Integumentary: Denies: rash, abrasion, lesions Neurological: Denies: headache, weakness, numbness, paresthesias, confusion, abnormal gait, vertigo Psychiatric: Denies: anxiety, depression, suicidal thoughts, homicidal thoughts , auditory hallucinations, visual hallucinations Endocrine: Denies: fatigue Hematological/Lymphatic: Denies: easy bleeding, easy bruising Allergic/Immunologic: Denies: facial swelling, urticaria Past Medical History - Past Medical History Medical history: Reports: arthritis, cirrhosis, COPD, dementia, diabetes, GERD, glaucoma, hepatitis, hyperlipidemia, hypertension, liver disease, osteoporosis, renal disease, thyroid disease Surgical history: Reports: herniorrhaphy Psychiatric history: Reports: no psych history BLUE LEATHER SORTER history: Reports: no BLUE LEATHER SORTER history - Social History Smoking Status: Never smoker Smokeless Tobacco Status: No Alcohol use: Reports: none Drug use: Reports: none Physical Exam - General Limitations: no limitations General appearance: in no apparent distress - Head Head exam: atraumatic, normocephalic, normal inspection - Eye Eye exam: Present: normal appearance, PERRL, EOMI - Expanded Eye Exam Pupils: Left: reactive - ENT ENT exam: normal exam, normal oropharynx, mucous membranes moist - Expanded ENT Exam External ear exam: Present: normal external inspection Mouth exam: Present: normal external inspection Teeth exam: Present: normal inspection Throat exam: Present: normal inspection - Neck Neck exam: Present: normal inspection, full ROM, trachea midline - Chest Chest inspection: Present: normal inspection, symmetric chest wall rise - Respiratory Respiratory exam: Present: normal lung sounds bilaterally - Cardiovascular Cardiovascular exam: Present: regular rate, normal rhythm, normal heart sounds - Abdominal Exam Abdominal exam: Present: soft, Non-Tender, distention, ascites. Absent: tenderness, guarding, rebound, rigidity - Extremities Exam Extremities exam: Present: normal inspection, full ROM. Absent: tenderness, pedal edema - Expanded Upper Extremity Exam Shoulder exam: Present: normal inspection, full ROM Arm exam: Present: normal inspection, full ROM Elbow exam: Present: normal inspection, full ROM Forearm/Wrist exam: Present: normal inspection, full ROM Hand exam: Present: normal inspection, full ROM Vascular exam: Normal: capillary refill, radial pulse - Expanded Lower Extremity Exam Hip/Pelvis exam: Present: normal inspection, full ROM Upper leg exam: Present: normal inspection, full ROM Knee exam: Present: normal inspection, full ROM Lower leg exam: Present: normal inspection, full ROM Ankle exam: Present: normal inspection, full ROM Foot/toe exam: Present: normal inspection, full ROM Neurovascular/Tendon exam: Absent: motor deficit, sensory deficit, tendon deficit - Back Exam Back exam: Present: normal inspection, full ROM. Absent: tenderness - Neurological Exam Neurological exam: Present: alert, oriented X3 - Expanded Neurological Exam Patient oriented to: Present: person, place, time Coma Scale Eye Opening: Spontaneous Coma Scale Motor Response: Obeys Commands Coma Scale Verbal Response: Oriented Coma Scale Total: 15 - Psychiatric Psychiatric exam: Present: normal affect, normal mood - Skin Skin exam: Present: warm, dry, intact, normal color Course - Reevaluation(s) Reevaluation #1: 76-year-old with a history of liver failure who comes in with increased confusion. This usually is associated with an elevation in her ammonia level. She was actually scheduled for paracentesis today which was done. IR removed 7.5 L of fluid. Standing orders of indicate the patient is to receive 8 g of 25 % albumin for every liter of fluid removed. She will be admitted. Time: 12:26 - Consultations Consultation #1: Discussed with Dr. Monreal, admit. Time: 12:28 Vital Signs O2 Sat by Pulse Oximetry 97 08/04/16 09:58 Temperature 97.5 F L 08/04/16 09:59 Pulse Rate 74 08/04/16 11:08 Respiratory Rate 18 08/04/16 11:08 Blood Pressure 143/87 08/04/16 11:08 O2 Sat by Pulse Oximetry 97 08/04/16 11:08 Oxygen Delivery Oxygen Delivery Nasal Cannula Altered Mental Status - Lab Data Result diagrams: 08/04/16 10:18 08/04/16 10:18 Lab Results 08/04/16 08/04/16 08/04/16 Range/Units 10:18 10:18 10:18 WBC 3.1 L (4.3-11.1) K/mcL RBC 4.05 (3.82-4.97) M/mcL Hgb 12.4 (11.5-15.4) g/dL Hct 39.5 (35.3-44.9) % MCV 97.5 (83.0-100.0) fL MCH 30.6 (28.0-33.3) pg MCHC 31.4 L (31.6-35.5) g/dL RDW 19.9 H (11.5-14.5) % Plt Count 60 L (140-400) K/mcL MPV 11.6 (9.4-12.4) fL Immature Gran % 0.3 (0-4) % Seg Neutrophils % 63.4 % Lymphocytes % 21.2 % Monocytes % 9.8 % Eosinophils % 4.6 % Basophils % 0.7 % Neutrophils # 2.0 (1.6-8.9) K/mcL Lymphocytes # 0.7 (0.6-4.6) K/mcL Monocytes # 0.3 (0.0-1.3) K/mcL Eosinophils # 0.1 (0.0-0.6) K/mcL Basophils # 0.0 (0.0-0.2) K/mcL PT 14.1 H (9.4-12.1) Seconds INR 1.3 APTT 28.0 (26.0-36.0) Seconds Sodium 145 (136-145) mEq/L Potassium 4.4 (3.5-4.5) mEq/L Chloride 120 H (98-109) mEq/L Carbon Dioxide 20 (19-29) mEq/L BUN 36 H (7-20) mg/dL Creatinine 1.89 H (0.57-1.11) mg/dL Est GFR ( Amer) 31 L (> 60) Est GFR (Non-Af Amer) 26 L (> 60) BUN/Creatinine Ratio 19 (6-26) Glucose 186 H (70-99) mg/dL Calculated Osmolality 313 H (280-300) Calcium 8.8 (8.6-10.8) mg/dL Total Bilirubin 1.4 H (0.2-1.2) mg/dL Direct Bilirubin 0.7 H (0.0-0.5) mg/dL Indirect Bilirubin 0.7 (0.0-1.2) mg/dL AST 27 (5-34) Units/L ALT 15 (0-55) Units/L Alkaline Phosphatase 147 H (38-126) Units/L Ammonia (18-72) mcmol/L Troponin I (0-0.03) ng/mL Serum Total Protein 6.6 (6.0-8.3) g/dL Albumin 2.9 L (3.5-5.0) g/dL Globulin 3.7 H (2.4-3.5) g/dL Albumin/Globulin Ratio 0.8 L (1.1-2.2) Ethyl Alcohol < 10 (0-10) mg/dL 08/04/16 08/04/16 Range/Units 10:18 10:18 WBC (4.3-11.1) K/mcL RBC (3.82-4.97) M/mcL Hgb (11.5-15.4) g/dL Hct (35.3-44.9) % MCV (83.0-100.0) fL MCH (28.0-33.3) pg MCHC (31.6-35.5) g/dL RDW (11.5-14.5) % Plt Count (140-400) K/mcL MPV (9.4-12.4) fL Immature Gran % (0-4) % Seg Neutrophils % % Lymphocytes % % Monocytes % % Eosinophils % % Basophils % % Neutrophils # (1.6-8.9) K/mcL Lymphocytes # (0.6-4.6) K/mcL Monocytes # (0.0-1.3) K/mcL Eosinophils # (0.0-0.6) K/mcL Basophils # (0.0-0.2) K/mcL PT (9.4-12.1) Seconds INR APTT (26.0-36.0) Seconds Sodium (136-145) mEq/L Potassium (3.5-4.5) mEq/L Chloride (98-109) mEq/L Carbon Dioxide (19-29) mEq/L BUN (7-20) mg/dL Creatinine (0.57-1.11) mg/dL Est GFR ( Amer) (> 60) Est GFR (Non-Af Amer) (> 60) BUN/Creatinine Ratio (6-26) Glucose (70-99) mg/dL Calculated Osmolality (280-300) Calcium (8.6-10.8) mg/dL Total Bilirubin (0.2-1.2) mg/dL Direct Bilirubin (0.0-0.5) mg/dL Indirect Bilirubin (0.0-1.2) mg/dL AST (5-34) Units/L ALT (0-55) Units/L Alkaline Phosphatase (38-126) Units/L Ammonia 84 H (18-72) mcmol/L Troponin I 0.02 (0-0.03) ng/mL Serum Total Protein (6.0-8.3) g/dL Albumin (3.5-5.0) g/dL Globulin (2.4-3.5) g/dL Albumin/Globulin Ratio (1.1-2.2) Ethyl Alcohol (0-10) mg/dL - EKG Data EKG attestation: Yes I reviewed and interpreted this EKG. EKG shows normal: sinus rhythm Rate: normal Rhythm: NSR Interpretation: no acute changes TPA Checklist - LKW: 3-4.5 hrs Add. Warnings/Precautions Patient/family understanding: The patient/family members have been counseled and understood the risk, benefit , and alternatives of treatment.
[2016-08-04 10:28] LABS: Basophils % 0.7 %; Eosinophils # 0.1 K/mcL (0.0-0.6); Eosinophils % 4.6 %; Hematocrit 39.5 % (35.3-44.9); Hemoglobin 12.4 g/dL (11.5-15.4); Immature Granulocytes % 0.3 % (0-4); Lymphocytes # 0.7 K/mcL (0.6-4.6); Lymphocytes % 21.2 %; Mean Corpuscular HGB Conc 31.4 g/dL (31.6-35.5); Mean Corpuscular Hemoglobin 30.6 pg (28.0-33.3); Mean Corpuscular Volume 97.5 fL (83.0-100.0); Mean Platelet Volume 11.6 fL (9.4-12.4); Monocytes # 0.3 K/mcL (0.0-1.3); Monocytes % 9.8 %; Platelet Count 60 K/mcL (140-400); Red Blood Count 4.05 M/mcL (3.82-4.97); Red Cell Distribution Width 19.9 % (11.5-14.5); Segmented Neutrophils % 63.4 %
[2016-08-04 10:39] LABS: INR 1.3; Prothrombin Time 14.1 Seconds (9.4-12.1)
[2016-08-04 10:44] LABS: Alanine Aminotransferase 15 Units/L (0-55); Albumin 2.9 g/dL (3.5-5.0); Albumin/Globulin Ratio 0.8 (1.1-2.2); Alkaline Phosphatase 147 Units/L (38-126); Aspartate Amino Transferase 27 Units/L (5-34); BUN/Creatinine Ratio 19 (6-26); Bilirubin,Direct 0.7 mg/dL (0.0-0.5); Bilirubin,Indirect 0.7 mg/dL (0.0-1.2); Bilirubin,Total 1.4 mg/dL (0.2-1.2); Blood Urea Nitrogen 36 mg/dL (7-20); Calcium 8.8 mg/dL (8.6-10.8); Carbon Dioxide 20 mEq/L (19-29); Chloride 120 mEq/L (98-109); Globulin 3.7 g/dL (2.4-3.5); Glucose 186 mg/dL (70-99); Osmolality,Calculated 313 (280-300); Potassium 4.4 mEq/L (3.5-4.5); Sodium 145 mEq/L (136-145); Total Protein 6.6 g/dL (6.0-8.3); eGFR For African Americans 31 (> 60); eGFR For Non-African Americans 26 (> 60)
[2016-08-04 10:45] LABS: Ethanol < 10 mg/dL (0-10)
[2016-08-04] MEDS ORDERED: ALBUMIN IVPB ONE (12:45)
[2016-08-04] MEDS ORDERED: *HR* HYDROcodone/Acet 5/325 mg TABLET PO PRN (13:39)
[2016-08-04] MEDS ORDERED: Acetaminophen 325 MG TABLET PO PRN (13:39)
[2016-08-04] MEDS ORDERED: Ondansetron 4 MG/2 ML VIAL IVP PRN (13:39)
[2016-08-04] MEDS ORDERED: Naloxone 0.4 MG/ML INJ IVP PRN (13:39)
[2016-08-04 13:59] LABS: RBC,Peritoneal Fluid < 0.002 M/mcL
--- NOTE | 2016-08-04 14:03 | Internal Med History&Physical ---
<Debra Monreal - Last Filed: 08/04/16 17:30> Date of Encounter: 08/04/16 Time of Encounter: 13:00 Internal Medicine - H&P: HPI History of present illness: Ms. Flores is a 76 year old female Internal Medicine - H&P: Meds Cholecalciferol (Vitamin D3) [Vitamin D3] 50,000 unit PO WESA 11/02/14 [History] Magnesium Oxide [Magnesium] 400 mg PO BID 11/02/14 [History] Aspirin 81 mg PO DAILY 30 Days 11/08/14 [Rx] Ipratropium/Albuterol Neb [Duoneb] 3 ml IH Q4HR PRN 04/26/15 [History] Rifaximin [Xifaxan] 550 mg PO BID #60 tablet 05/01/15 [Rx] Cyanocobalamin (Vitamin B-12) [Vitamin B12] 1,000 mcg PO 2XW 09/03/15 [History] Zinc Sulfate 220 mg PO BID 09/03/15 [History] Insulin DETEMIR [Levemir Flextouch] 26 unit SQ BID 10/07/15 [History] Insulin LISPRO [Humalog Kwikpen U-100] 0 unit SQ ACHS 10/07/15 [History] Lactulose 15 ml PO TID PRN 10/07/15 [History] Levothyroxine [Synthroid] 100 mcg PO QAM 10/07/15 [History] Oxygen 2 l NS AD 12/22/15 [History] Ondansetron ODT [Zofran ODT] 4 mg SL TID PRN 04/02/16 [History] raNITIdine HCl [Ranitidine HCl] 150 mg PO BID 04/02/16 [History] Diclofenac Sodium 1 appl TP QID PRN 04/09/16 [History] Midodrine HCl 2.5 mg PO TID 05/19/16 [History] HYDROcodone/Acet 5/325 mg [[place] 5-325 mg] 1 tab PO Q8H PRN 07/14/16 [History] Pantoprazole Sodium [Protonix] 40 mg PO DAILY 07/14/16 [History] Folic Acid 1 mg PO DAILY #30 tablet 07/27/16 [Rx] Allergies No Known Allergies Allergy (Verified 07/14/16 11:53) All Systems PM: A 10-system review of systems was performed and is negative for pertinent findings except as documented above in the HPI. - Constitutional Vitals: Temp Pulse Resp BP Pulse Ox 97.5 F L 80 14 126/58 99 08/04/16 14:15 08/04/16 14:15 08/04/16 14:15 08/04/16 14:15 08/04/16 14:15 Internal Med - H&P Results - Labs CBC & Chem 7: 08/04/16 10:18 08/04/16 10:18 - Attending Attestation I examined this patient and my medical decision-making was reviewed with the nurse practitioner. I agree with the documented history of present illness, review of systems, past medical, surgical social and family histories and examination findings, disposition and treatment plan as described above except to any changes set forth below. 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 Symptoms began yesterday and patient has been increasingly confused. She was supposed to undergo paracentesis today. Given her altered mental status she was instead brought to the ER. Patient is currently not responding to questions and appears to bemoaning. According to the patient's son who is present at bedside, she has had similar prior presentations with confusion when she was diagnosed with hepatic encephalopathy. She has not described any pain, fever or chills but she was having cough which seems to have improved after patient underwent paracentesis in the ER. About 7 L of ascites fluid was removed. Patient is somnolent, disoriented and not responding to questions. Abdomen is soft, nontender. Heart sounds show normal S1 and S2. Respiratory examination shows prolonged expiratory phase without any wheezing. Acute hepatic encephalopathy: Patient has an elevated ammonia level. We will treat with lactulose orally. If this does not improve patient's symptoms, or if the patient does not have bowel movements, consider NG tube or lactulose enema. Chronic kidney disease stage IV: Creatinine is at baseline. We will follow renal function. COPD: Not in acute exacerbation. Use bronchodilators as needed. Monitor pulse oximetry and O2 supplementation as needed. Chronic anemia: Patient's son describes an episode of blood in her stools one week back. Patient was hospitalized recently here earlier this month for similar complaints and at that time she was severely anemic. Upper GI endoscopy had been done and showed erythematous mucosa in the gastric region with dialysis. No overt bleeding. Her hemoglobin level is currently 12.4. We will monitor blood counts. Continue PPI. <Greyson Seo - Last Filed: 08/04/16 18:42> Date of Encounter: 08/04/16 Time of Encounter: 12:00 Assessment and Plan (1) Hepatic encephalopathy Current visit: Yes Status: Acute Assess: Ms. Flores presents with chief complaint of altered mental status related to elevated blood ammonia levels due to hepatic encephalopathy. Patient was scheduled for paracentesis today (08/04/16) but was not able to be awakened this morning by her son. First blood drawn the ED shows WBCs at 3.1, platelets of 60.0, BUN of 36, creatinine of 1.89, and GFR 26. Patient's blood ammonia level was 84 on first draw. Plan: Paracentesis performed in ED with removal of 7.5 L of turbid fluid IV ceftriaxone 1, 000 mg daily ordered for possible infection coverage Body fluid cultures were ordered Total protein and LDH ordered from body fluid cultures as well as blood cultures Patient to receive lactulose 20 g 3 times a day by mouth. If unable to administer by mouth, then will order rectal. If patient still unable to tolerate oral rectal lactulose, will place order for NG tube. Patient nothing by mouth Monitor daily weight Monitor input and output (2) Unresponsive Current visit: Yes Status: Acute Assess: Patient presents in ED as unresponsive to questions or rousing due to increased blood ammonia levels related to hepatic encephalopathy. Plan: Lactulose 20 g 3 times a day ordered by mouth Repeat blood ammonia level in 6 hours Monitor patient closely for continued signs of neurological decline (3) Ascites Current visit: Yes Status: Acute Assess: Ms. Flores presents with chief complaint of altered mental status related to elevated blood ammonia levels due to hepatic encephalopathy. Patient was scheduled for paracentesis today (08/04/16) due to acute on chronic ascites but was not able to be awakened this morning by her son. First blood drawn the ED shows WBCs at 3.1, platelets of 60.0, BUN of 36, creatinine of 1.89, and GFR 26. Patient's blood ammonia level was 84 on first draw. Plan: Paracentesis performed in ED with removal of 7.5 L of turbid fluid IV ceftriaxone 1, 000 mg daily ordered for possible infection coverage Body fluid cultures were ordered Total protein and LDH ordered from body fluid cultures as well as blood cultures Patient to receive lactulose 20 g 3 times a day by mouth. If unable to administer by mouth, then will order rectal. If patient still unable to tolerate oral rectal lactulose, will place order for NG tube. Patient nothing by mouth Monitor daily weight Monitor input and output Qualifiers: Ascites type: other type Qualified Code(s): R18.8 - Other ascites (4) Anemia Current visit: Yes Status: Chronic Assess: Patient presents with history of chronic folate anemia for which she was hospitalized approximately one week ago. Plan: Follow-up blood draws ordered Monitor Hgb/Hct Continue patient's folic acid Qualifiers: Anemia type: folate deficiency Folate deficiency anemia type: unspecified folate deficiency Qualified Code(s): D52.9 - Folate deficiency anemia, unspecified (5) Chronic kidney disease, stage IV (severe) Current visit: Yes Status: Chronic Assess: Patient presents with chronic kidney disease (stage IV). Patient's BUN was 36, creatinine was 1.89, and GFR was 26 from initial blood draw. Plan: Judicious use of IV fluids Monitor I&O Monitor daily weight Patient is currently NPO due to AMS, but will change diet to renal/fluid restriction diet when mental status improves Follow-up labs ordered (6) COPD (chronic obstructive pulmonary disease) Current visit: Yes Status: Chronic Assess: Patient presents with history of chronic COPD. Plan: DuoNebs ordered Q4 PRN Supplemental O2 ordered titration if SPO2 less than 92% Continuous SPO2 monitoring Monitor patient and vital signs for respiratory decline/distress Qualifiers: COPD type: chronic bronchitis Chronic bronchitis type: simple Qualified Code(s): J41.0 - Simple chronic bronchitis (7) DVT prophylaxis Current visit: Yes Status: Acute Assess: Patient to receive DVT prophylaxis due to admission protocol and bed rest status. Pharmacologic DVT prophylaxis is contraindicated due to possible GI bleed one week ago as reported by son. Plan: Apply anti-embolic stockings bilaterally Continue low-dose aspirin therapy Internal Medicine - H&P: HPI Chief complaint: Altered mental status Admitted From: Emergency Dept Plans for Post Hospital Care: Home History of present illness: Ms. Flores is a 76 year old female who presents from the ED with chief complaint of altered mental status related to elevated blood ammonia levels due to hepatic encephalopathy. Patient was unresponsive to questions during assessment and evaluation, so her son provided the necessary information regarding her ED admission. He states that his mother complained of headache for the past 3 days, as well as abdominal pain most likely related to her chronic ascites. Her son reports she complained of being extremely tired yesterday (08/03/16). He reports putting her bed at approximately 1:30 AM this morning during which time she was mentally lucid. He reports waking her at 6: 30 AM and being unable to awaken her for paracentesis procedure scheduled for today. On arriving at the ED, patient's WBCs were 3.1 and platelets 60.0. Initial labs show her BUN at 36, creatinine at 1.89, and her GFR at 26. Her ammonia level was 84. Son reports patient was hospitalized a week ago for anemia and gastrointestinal issues including paracentesis and melena. Endoscopy performed which ago showed presence of esophageal varices. Patient's son reports she had dark blood in her stool 1 week ago on arriving home from the hospital. Colonoscopy is contraindicated at this time due to presence of ascites and high risk for perforation. Paracentesis performed in the ED removed approximately 7.5 L of fluid from the patient which was turbid. Patient is to be admitted as observation status and is to receive 8 g of 25% albumin for every liter of fluid removed during paracentesis today. Patient also to receive IV ceftriaxone for infection coverage. Due to patient's nonresponsive status, an order for NG tube placement has been placed in the event she cannot take medications or ordered lactulose by mouth. Ammonia level to be repeated in 6 hours. Blood cultures have been ordered as well as total protein and LDH from body fluid and blood samples. Patient is at moderate risk for further morbidity related to recurrent hepatic encephalopathy which has resulted in increased blood ammonia levels and altered mental status. Patient is to be placed his bedrest status and falls precautions. Patient to be monitored closely. Time spent with patient greater than 40 minutes. Past Med Surg Social Fam HX - Past Medical History Medical history: arthritis, cirrhosis, COPD, dementia, diabetes, GERD, glaucoma , hepatitis, hyperlipidemia, hypertension, liver disease, osteoporosis, renal disease, thyroid disease Psychiatric history: no psych history - Past Surgical History Surgical History: herniorrhaphy - Social History Smoking Status: Never smoker Smokeless Tobacco Status: No Alcohol use: none Drug use: none Current living situation: Home Activity Level: Uses cane/walker Recent Out of Country Travel Within the Last 8 Weeks: No Exposure or Possible Exposure to Illness During Travel: No - Family History Sister Adopted: No Living Status: Hx Family Cardiac Disorders: Yes Hx Family Respiratory Disorders: Yes Hx Family Cancer: Yes Hx Family GI Disorders: Yes (cirrhosis) Hx Family Endocrine Disorder: No Hx Family Neuromuscular Disorders: No Hx Family Neurologic Disorders: No Hx Family HEENT Disorders: No Hx Family Autoimmune Disorders: No Mother Adopted: No Family Member Ethnicity: Non- Living Status: Hx Family Cardiac Disorders: Yes Father Hx Family Cardiac Disorders: Yes (MD) Son Adopted: No Family Member Ethnicity: Non- Living Status: Still Living Hx Family Cardiac Disorders: Yes (HTN) Hx Family Respiratory Disorders: No Hx Family Cancer: No Hx Family GI Disorders: No Hx Family Endocrine Disorder: No Hx Family Neuromuscular Disorders: No Hx Family Neurologic Disorders: No Hx Family HEENT Disorders: No Hx Family Autoimmune Disorders: No ROS unobtainable: due to mental status All Systems PM: A 10-system review of systems was performed and is negative for pertinent findings except as documented above in the HPI. - Constitutional Vitals: Temp Pulse Resp BP Pulse Ox 97.5 F L 55 16 149/62 100 08/04/16 09:59 08/04/16 13:12 08/04/16 13:49 08/04/16 13:49 08/04/16 13:12 Exam: Patient unresponsive during examination due to altered mental status related to elevated blood ammonia levels due to hepatic encephalopathy. - Head Head exam: Present: atraumatic, normocephalic - ENT ENT exam: Present: normal exam, normal external ear exam - Neck Neck exam general surgery: Present: supple, trachea midline. Absent: lymphadenopathy - Respiratory Respiratory exam: Present: CTAB. Absent: accessory muscle use, rales, rhonchi, wheezes - Cardiovascular Cardiovascular exam: Present: RRR, +S1, +S2. Absent: diastolic murmur, gallop, rubs, systolic murmur - GI/Abdominal GI/Abdominal exam: Present: distended - Rectal Rectal exam: Present: deferred - Additional comments: exam deferred. - Extremities Exam Extremities exam: Present: warm, radial pulses palpable and symetrical. Absent : calf tenderness, cyanotic, pedal edema - Skin Skin exam: Present: dry, intact Internal Med - H&P Results - Labs CBC & Chem 7: 08/04/16 10:18 08/04/16 10:18 - EKG Data EKG shows normal: sinus rhythm - EKG Data Prior EKG available for review: yes When compared to previous EKG: there is no significant change EKG comments: 08/04/16 14:18 EKG dated 07/24/16 shows sinus rhythm with borderline left axis deviation. EKG dated 08/04/16 shows sinus rhythm with marked left axis deviation [QRS axis < -30], moderate intraventricular conduction delay [105+ ms QRS duration, 80+ ms Q/S in V1/V2, no Q and 60+ ms in R in I/aVL/V5/V6]. Nonspecific T-wave abnormality. - Diagnostic Studies Chest x-ray Additional comments: Impressions Chest X-Ray 08/04/16 10:01 IMPRESSION: Stable chest. No acute process. D/ / Dane Ferraro MD / Dane Ferraro MD Interpreting Provider: Dane Ferraro MD CT scan - head Additional comments: Impressions Head CT 08/04/16 10:02 IMPRESSION: No acute intracranial abnormality. D/ / Eri Dobson MD / Eri Dboson MD Interpreting Provider: Eri Dobson MD
[2016-08-04 14:25] LABS: Appearance of Peritoneal Fl CLEAR (Clear)
[2016-08-04] MEDS: Lactulose Oral Soln 20 GM/30 ML UDC PO SCH ×2 (15:19→20:49)
[2016-08-04] MEDS ORDERED: DICLOFENAC SODIUM APPL TP PRN (15:57)
[2016-08-04] MEDS ORDERED: Ipratropium/Albuterol Neb 3 ML IH PRN (15:57)
[2016-08-04] MEDS ORDERED: Dextrose Gel 15 GM PO PRN ×2 (16:01)
[2016-08-04] MEDS ORDERED: *HR* Dextrose 50 % in Water (Syg) 50 ML SYRINGE IVP PRN (16:01)
[2016-08-04] MEDS ORDERED: D5% in Water 1,000 ML IVC PRN (16:01)
[2016-08-04] MEDS: Insulin LISPRO 300 UNITS/3 ML VIAL SQ SCH ×2 (18:22→20:15)
--- NOTE | 2016-08-04 19:07 | Electrocardiograph Report ---
[place] [id number] Test Date: 2016-08-04 Pat Name: Nellie Flores Department: 105 Room: 3B45 Gender: F Activities Attendant: NADER : 1940 Requested By: Mg Burr Order Number: [id number] Reading MD: Sherlyn Sheikh Measurements Intervals [place] Rate: 80 P: 56 [place]: 135 QRS: -32 QRSD: 111 T: 94 QT: 410 QTc: 447 Interpretive Statements SINUS RHYTHM MARKED LEFT AXIS DEVIATION [QRS AXIS < -30] MODERATE INTRAVENTRICULAR CONDUCTION DELAY [105+ ms QRS DURATION, 80+ ms Q/S IN V1/V2, NO Q AND 60+ ms R IN I/aVL/V5/V6] NONSPECIFIC T-WAVE ABNORMALITY Electronically Signed On 08-04-2016 19:06:17 EDT by Sherlyn Sheikh
[2016-08-04] MEDS: Rifaximin [Xifaxan] 550 MG PO SCH (20:15)
[2016-08-04] MEDS: Famotidine 20 MG TABLET PO SCH (20:48)
[2016-08-04] MEDS: Magnesium Oxide 400 MG TABLET PO SCH (20:48)
[2016-08-04] MEDS: Insulin DETEMIR 100 UNIT/ML X5UNITS SQ SCH (20:49)
[2016-08-04] MEDS: Zinc Sulfate 220 MG CAPSULE PO SCH (20:49)
[2016-08-05 03:40] LABS: Basophils % 0.7 %; Eosinophils # 0.1 K/mcL (0.0-0.6); Eosinophils % 3.2 %; Hematocrit 33.4 % (35.3-44.9); Hemoglobin 10.3 g/dL (11.5-15.4); Immature Granulocytes % 0.4 % (0-4); Immature Platelets 3.8 % (1.1-6.1); Lymphocytes # 0.4 K/mcL (0.6-4.6); Mean Corpuscular HGB Conc 30.8 g/dL (31.6-35.5); Mean Corpuscular Hemoglobin 30.2 pg (28.0-33.3); Mean Corpuscular Volume 97.9 fL (83.0-100.0); Monocytes # 0.4 K/mcL (0.0-1.3); Platelet Count 47 K/mcL (140-400); Red Blood Count 3.41 M/mcL (3.82-4.97); Red Cell Distribution Width 19.6 % (11.5-14.5); Segmented Neutrophils % 68.7 %
[2016-08-05 03:57] LABS: INR 1.4; Prothrombin Time 15.7 Seconds (9.4-12.1)
[2016-08-05 03:59] LABS: Activated Partial Thrombo Time 32.3 Seconds (26.0-36.0)
[2016-08-05 04:39] LABS: Albumin 3.3 g/dL (3.5-5.0); Albumin/Globulin Ratio 1.2 (1.1-2.2); Bilirubin,Total 1.6 mg/dL (0.2-1.2); Calcium 8.9 mg/dL (8.6-10.8); Chol/HDL Ratio 2.9 (0-4.9); Globulin 2.7 g/dL (2.4-3.5); Potassium 4.1 mEq/L (3.5-4.5)
[2016-08-05 05:53] LABS: Hepatitis B Surface Antigen Nonreactive (Nonreactive)
[2016-08-05] MEDS: Insulin LISPRO 300 UNITS/3 ML VIAL SQ SCH ×4 (08:33→21:50)
[2016-08-05] MEDS: Magnesium Oxide 400 MG TABLET PO SCH ×2 (09:20→20:29)
[2016-08-05] MEDS: Insulin DETEMIR 100 UNIT/ML X5UNITS SQ SCH ×2 (09:20→21:50)
[2016-08-05] MEDS: Aspirin 81 MG TAB.CHEW PO SCH (09:20)
[2016-08-05] MEDS: Folic Acid 1 MG TABLET PO SCH (09:20)
[2016-08-05] MEDS: Cholecalciferol (D-3) 1,000 UNIT TABLET PO SCH (09:21)
[2016-08-05] MEDS: Pantoprazole 40 MG VIAL IVP SCH (09:21)
[2016-08-05] MEDS: Zinc Sulfate 220 MG CAPSULE PO SCH ×2 (09:21→20:29)
[2016-08-05] MEDS: Rifaximin [Xifaxan] 550 MG PO SCH ×2 (09:21→20:35)
[2016-08-05] MEDS: Famotidine 20 MG TABLET PO SCH (09:21)
[2016-08-05] MEDS: Lactulose Oral Soln 20 GM/30 ML UDC PO SCH ×3 (09:27→20:28)
[2016-08-05 11:12] LABS: Hepatitis A Antibody IgM Nonreactive (Nonreactive); Hepatitis B Core IgM Nonreactive (Nonreactive); Hepatitis C Virus Antibody Nonreactive (Nonreactive)
[2016-08-05 12:57] LABS: Bilirubin,Urine Small (Negative); Blood,Urine Moderate (Negative); Clarity,Urine Cloudy (Clear); Color,Urine Dark Yellow (Yellow); Glucose,Urine (UA) Normal (Normal); Ketones,Urine Trace mg/dL (Negative); Leukocyte Esterase,Urine Moderate (Negative); Nitrite,Urine Negative (Negative); Protein,Urine Trace mg/dL (Neg-Trace); Specific Gravity,Urine 1.028 (1.010-1.025); Urobilinogen,Urine Normal (Normal)
[2016-08-05 12:59] LABS: Bacteria,Urine None Seen per hpf (None-Few); Hyaline Casts,Urine Few per lpf (None-Few); Squamous Epithelial Cell,Urine Many per lpf (None-Few); WBC,Urine 50-100 per hpf (0-3)
[2016-08-05 13:03] LABS: Amphetamine Screen,Urine Negative ng/mL (Cutoff=1000); Barbiturate Screen,Urine Negative ng/mL (Cutoff=200); Benzodiazepines Screen,Urine Negative ng/mL (Cutoff=200); Cannabinoid Screen,Urine Negative ng/mL (Cutoff = 50); Cocaine Screen,Urine Negative ng/mL (Cutoff= 300); Opiate Screen,Urine Positive ng/mL (Cutoff=300); Phencyclidine Screen,Urine Negative ng/mL (Cutoff=25)
[2016-08-05 13:09] LABS: Yeast,Urine Moderate per hpf (None Seen)
--- NOTE | 2016-08-05 17:45 | Internal Med Progress Note ---
Date of Encounter: 08/05/16 Time of Encounter: 10:40 - Assessment and plan (1) Hepatic encephalopathy Current Visit: Yes Status: Acute Assessment and plan: Patient was admitted from home with decreased responsiveness and altered mental status and elevated blood ammonia. Initial ammonia level is 84. Patient was becoming increasingly confused and eventually was not responding to her son per his account. She was scheduled for a paracentesis yesterday, person could not awaken her to take her. She did have a paracentesis in the emergency department with the removal 7.5 L of fluid. She was given IV Rocephin for possible infection coverage. Paracentesis fluid cultures were ordered. Patient is to receive lactulose 20 g 3 times a day. She is unable to take by mouth, I be ordered rectally. Patient will be kept nothing by mouth. Monitor daily weight. And strict intake and output recordings. When I assessed patient this morning, she was alert and oriented, and she answered all questions appropriately. She was smiling and interactive with me. Son is at bedside and answers questions, as well. (2) Cirrhosis Current Visit: No Status: Chronic Assessment and plan: Patient has nonalcoholic cirrhosis. She has paracenteses weekly. She receives lactulose by mouth daily. Qualifiers: Hepatic cirrhosis type: alcoholic cirrhosis Ascites presence: with ascites Qualified Code(s): K70.31 - Alcoholic cirrhosis of liver with ascites (3) Insulin dependent diabetes mellitus Current Visit: No Status: Chronic Assessment and plan: Chronic. Sliding scale insulin, Accu-Cheks before meals and at bedtime. (4) Chronic kidney disease, stage IV (severe) Current Visit: No Status: Acute Assessment and plan: We will continue to monitor renal function. Creatinine is 1.73, GFR is 28. This is actually slightly decreased over patient's norm. We will continue to monitor labs and avoid nephrotoxins. (5) Anemia of chronic disease Current Visit: Yes Status: Chronic Assessment and plan: Hemoglobin is 10.3, platelets of 47. These are actually higher than patient's baseline. We will continue to monitor hemoglobin and hematocrit. She will continue to take folic acid supplements. Prepared to transfuse if hemoglobin drops below 8 patient is symptomatic. Patient had EGD on 04/14/2016 with nonbleeding esophageal ulcer. Flexible sigmoidoscopy December 12 as well that was negative for bleeding. 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 Patient had an EGD last week by Dr. Thornton. There is erythema at the gastroesophageal junction, erythematous mucosa in the gastric fundus and antrum , the duodenum was normal. Pathology reports are still pending. Diagnoses or melena, other diseases stomach and duodenum, other specified diseases of esophagus. (6) Ascites Current Visit: Yes Status: Acute Assessment and plan: At bedtime paracentesis every week. Last one was last night in the emergency department where 7.5 L were removed. Abdomen is soft and nontender. Bowel sounds are present. Continue to monitor. Continue lactulose. Qualifiers: Ascites type: other type Qualified Code(s): R18.8 - Other ascites - Time Spent With Patient less than 15 minutes - Subjective Interval history: Patient was seen and assessed this morning at about 10:40 AM. Family reports that she had a EGD by Dr. Thornton last week. I am unable to locate any results of this test. Assessment was questioning her platelets which are 47. This is actually within her normal limits. Hemoglobin is 10.3 which is also apparently within normal limits for this patient. Ammonia is 49. We will continue to monitor. She was alert and oriented and answered questions appropriately today. Son states that she began declining on Wednesday afternoon until yesterday morning when she was supposed to go to GI for her weekly paracentesis, she was unarousable. She has a long history of this in the past, multiple admissions for hepatic encephalopathy. Her abdomen is rounded soft, nontender bowel sounds are present. There is no fluid wave this time. According to admission note, she is greatly improved over febrile. Son reports frequent admissions with short stent at home then another readmission. - Constitutional Vitals: Temp Pulse Resp BP Pulse Ox 98.3 F 77 15 189/74 100 08/05/16 16:35 08/05/16 16:35 08/05/16 16:35 08/05/16 16:35 08/05/16 16:35 General appearance: Present: A&O X 3, pleasant, no acute distress, answers questions appropriately - Head Head exam: Present: normal inspection - Eye Eye exam: Present: normal appearance, conjuntiva pink - ENT ENT exam: Present: mucous membranes moist, normal exam - Neck Neck exam general surgery: Present: normal inspection. Absent: lymphadenopathy , tenderness - Respiratory Respiratory exam: Present: chest wall tenderness. Absent: rales, rhonchi, stridor, wheezes - Cardiovascular Cardiovascular exam: Present: RRR, +S1, +S2. Absent: clicks, diastolic murmur, gallop, systolic murmur - GI/Abdominal GI/Abdominal exam: Present: distended, normal bowel sounds, soft. Absent: firm , hernia, mass, tenderness - Extremities Exam Extremities exam: Present: normal inspection, pedal edema, warm, radial pulses palpable and symetrical. Absent: full ROM, tenderness - Neurological Exam Neurological exam: Present: alert, oriented X3, no focal deficits. Absent: facial droop, speech deficit - Skin Skin exam: Present: dry, intact, warm Internal Medicine: Result - Labs CBC & Chem 7: 08/05/16 03:20 08/05/16 03:20 Labs: Urine 08/05/16 Range/Units 12:40 Urine Color Dark Yellow (Yellow) Urine Clarity Cloudy A (Clear) Urine pH 5.0 (5.0-8.0) pH Units Ur Specific [place] 1.028 H (1.010-1.025) Urine Protein Trace (Neg-Trace) mg/dL Urine Glucose (UA) Normal (Normal) mg/dL - ABG Interpretation ABG results: PT/INR, D-dimer PT 15.7 Seconds (9.4-12.1) H 08/05/16 03:35 Consult Discharge Plan - Plan Referrals: NO,PCP [Primary Care Provider] -
[2016-08-06 05:22] LABS: Basophils % 0.6 %; Eosinophils # 0.1 K/mcL (0.0-0.6); Eosinophils % 2.9 %; Hematocrit 35.2 % (35.3-44.9); Hemoglobin 10.9 g/dL (11.5-15.4); Immature Granulocytes % 0.3 % (0-4); Lymphocytes # 0.5 K/mcL (0.6-4.6); Lymphocytes % 13.7 %; Mean Corpuscular Hemoglobin 30.9 pg (28.0-33.3); Mean Corpuscular Volume 99.7 fL (83.0-100.0); Mean Platelet Volume 10.6 fL (9.4-12.4); Monocytes # 0.4 K/mcL (0.0-1.3); Monocytes % 10.5 %; Neutrophils # 2.5 K/mcL (1.6-8.9); Red Blood Count 3.53 M/mcL (3.82-4.97); Red Cell Distribution Width 19.4 % (11.5-14.5)
[2016-08-06 05:24] LABS: Platelet Count 44 K/mcL (140-400)
[2016-08-06 05:34] LABS: Calcium 8.8 mg/dL (8.6-10.8); Potassium 4.6 mEq/L (3.5-4.5)
[2016-08-06] MEDS: Magnesium Oxide 400 MG TABLET PO SCH ×2 (08:39→21:17)
[2016-08-06] MEDS: Folic Acid 1 MG TABLET PO SCH (08:40)
[2016-08-06] MEDS: Pantoprazole 40 MG VIAL IVP SCH (08:40)
[2016-08-06] MEDS: Aspirin 81 MG TAB.CHEW PO SCH (08:40)
[2016-08-06] MEDS: Zinc Sulfate 220 MG CAPSULE PO SCH ×2 (08:40→21:17)
[2016-08-06] MEDS: Cholecalciferol (D-3) 1,000 UNIT TABLET PO SCH (08:40)
[2016-08-06] MEDS: Rifaximin [Xifaxan] 550 MG PO SCH ×2 (08:41→21:15)
[2016-08-06] MEDS: Lactulose Oral Soln 20 GM/30 ML UDC PO SCH ×3 (08:42→21:18)
[2016-08-06] MEDS: Insulin LISPRO 300 UNITS/3 ML VIAL SQ SCH ×4 (08:49→21:11)
[2016-08-06] MEDS: Insulin DETEMIR 100 UNIT/ML X5UNITS SQ SCH ×2 (08:55→21:17)
[2016-08-06] MEDS ORDERED: Cyanocobalamin (B-12) 1,000 MCG TABLET PO SCH (09:00)
[2016-08-06 16:08] LABS: Basophils % 0.5 %; Eosinophils # 0.2 K/mcL (0.0-0.6); Eosinophils % 4.4 %; Hematocrit 34.7 % (35.3-44.9); Hemoglobin 10.5 g/dL (11.5-15.4); Immature Granulocytes % 0.3 % (0-4); Immature Platelets 4.5 % (1.1-6.1); Lymphocytes # 0.5 K/mcL (0.6-4.6); Lymphocytes % 13.6 %; Mean Corpuscular HGB Conc 30.3 g/dL (31.6-35.5); Mean Corpuscular Hemoglobin 30.6 pg (28.0-33.3); Mean Corpuscular Volume 101.2 fL (83.0-100.0); Mean Platelet Volume 11.4 fL (9.4-12.4); Monocytes # 0.4 K/mcL (0.0-1.3); Neutrophils # 2.7 K/mcL (1.6-8.9); Platelet Count 46 K/mcL (140-400); Red Blood Count 3.43 M/mcL (3.82-4.97); Red Cell Distribution Width 19.5 % (11.5-14.5); Segmented Neutrophils % 70.2 %
[2016-08-06 16:19] LABS: Calcium 8.4 mg/dL (8.6-10.8); Potassium 4.3 mEq/L (3.5-4.5)
--- NOTE | 2016-08-06 18:43 | Internal Med Progress Note ---
Date of Encounter: 08/06/16 Time of Encounter: 10:10 - Assessment and plan (1) Hepatic encephalopathy Current Visit: Yes Status: Acute Assessment and plan: We are maintaining strict JANNIE per admission orders. Patient has returned to baseline and is no longer confused. Ammonia level remains within normal limits. She is continuing the lactulose. (2) Cirrhosis Current Visit: No Status: Chronic Assessment and plan: Patient has nonalcoholic cirrhosis. She has paracenteses weekly. She receives lactulose by mouth daily. Qualifiers: Hepatic cirrhosis type: alcoholic cirrhosis Ascites presence: with ascites Qualified Code(s): K70.31 - Alcoholic cirrhosis of liver with ascites (3) Insulin dependent diabetes mellitus Current Visit: No Status: Chronic Assessment and plan: Chronic. Sliding scale insulin, Accu-Cheks before meals and at bedtime. (4) Chronic kidney disease, stage IV (severe) Current Visit: No Status: Acute Assessment and plan: We will continue to monitor renal function. Creatinine is 1.73, GFR is 28. This is actually slightly decreased over patient's norm. We will continue to monitor labs and avoid nephrotoxins. (5) Anemia of chronic disease Current Visit: Yes Status: Chronic Assessment and plan: Hemoglobin is 10.5. These are actually higher than patient's baseline. We will continue to monitor hemoglobin and hematocrit. She will continue to take folic acid supplements. Prepared to transfuse if hemoglobin drops below 8 patient is symptomatic. Patient had EGD on 04/14/2016 with nonbleeding esophageal ulcer. Flexible sigmoidoscopy December 12 as well that was negative for bleeding. 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 Patient had an EGD last week by Dr. Thornton. There is erythema at the gastroesophageal junction, erythematous mucosa in the gastric fundus and antrum , the duodenum was normal. Pathology reports are still pending. Diagnoses or melena, other diseases stomach and duodenum, other specified diseases of esophagus. I was prepared to discharge patient. Nurse reports that she had a bowel movement with bleeding. She does have history of internal hemorrhoids with bleeding. Hemoglobin is holding steady this morning we will continue to monitor. If patient's condition and labs are stable she will be discharged in the morning. (6) Ascites Current Visit: Yes Status: Acute Assessment and plan: At bedtime paracentesis every week. Last one was last night in the emergency department where 7.5 L were removed. Abdomen is soft and nontender. Bowel sounds are present. Continue to monitor. Continue lactulose. Qualifiers: Ascites type: other type Qualified Code(s): R18.8 - Other ascites - Time Spent With Patient less than 15 minutes - Subjective Interval history: Patient was seen and assessed this morning at about 10:10 AM. I located the EGD tests by Dr. Thonrton last week. There is no acute bleeding or ulcerations. Again today, labs remain within what is normal for the patient. Hemoglobin remained steady. Patient was getting ready to be discharged, and discussed all of this with the son. He is okay with taking the patient home and that she is return to baseline. She had a large bowel movement with a lot of blood. Patient does have a history of internal hemorrhoids that have bled in the past. We will continue to monitor her her hemoglobin overnight redraw in the morning. There is no carlos bleeding at this time. If hemoglobin remains stable in the morning and patient's condition overall is still stable. She will be discharged home. - Constitutional Vitals: Temp Pulse Resp BP Pulse Ox 98.0 F 86 16 147/71 100 08/06/16 15:50 08/06/16 15:50 08/06/16 15:50 08/06/16 15:50 08/06/16 15:50 General appearance: Present: cooperative, A&O X 3, pleasant, no acute distress, answers questions appropriately - Head Head exam: Present: normal inspection - Respiratory Respiratory exam: Present: decreased breath sounds, CTAB. Absent: chest wall tenderness, rales, rhonchi, stridor, wheezes, tachypnea - Cardiovascular Cardiovascular exam: Present: RRR, +S1, +S2. Absent: diastolic murmur, systolic murmur - GI/Abdominal GI/Abdominal exam: Present: distended, firm, normal bowel sounds. Absent: tenderness - Extremities Exam Extremities exam: Present: normal inspection, warm, radial pulses palpable and symetrical - Neurological Exam Neurological exam: Present: alert, oriented X3, no focal deficits. Absent: facial droop, speech deficit - Skin Skin exam: Present: dry, intact, warm. Absent: rash Internal Medicine: Result - Labs CBC & Chem 7: 08/06/16 15:50 08/06/16 15:50 Labs: Short CBC 08/06/16 08/06/16 Range/Units 05:10 15:50 WBC 3.4 L 3.8 L (4.3-11.1) K/mcL Hgb 10.9 L 10.5 L (11.5-15.4) g/dL Hct 35.2 L 34.7 L (35.3-44.9) % Plt Count 44 L 46 L (140-400) K/mcL Neutrophils # 2.5 2.7 (1.6-8.9) K/mcL BMP 08/06/16 08/06/16 05:10 15:50 Sodium 147 H 143 Potassium 4.6 H 4.3 Chloride 121 H 118 H Carbon Dioxide 18 L 19 BUN 37 H 36 H Creatinine 1.63 H 1.79 H Glucose 138 H 202 H Calcium 8.8 8.4 L - ABG Interpretation ABG results: PT/INR, D-dimer PT 15.7 Seconds (9.4-12.1) H 08/05/16 03:35 - VTE Documentation of Mechanical Device: Graduated compression elastic hosiery Consult Discharge Plan - Plan Referrals: NO,PCP [Non-Partnered Physician] -
[2016-08-07 04:41] LABS: Basophils % 0.7 %; Eosinophils # 0.2 K/mcL (0.0-0.6); Eosinophils % 3.9 %; Hematocrit 34.9 % (35.3-44.9); Hemoglobin 11.1 g/dL (11.5-15.4); Immature Granulocytes % 0.3 % (0-4); Immature Platelets 4.7 % (1.1-6.1); Lymphocytes % 16.9 %; Mean Corpuscular HGB Conc 31.8 g/dL (31.6-35.5); Mean Corpuscular Hemoglobin 31.4 pg (28.0-33.3); Mean Corpuscular Volume 98.6 fL (83.0-100.0); Mean Platelet Volume 11.1 fL (9.4-12.4); Monocytes # 0.7 K/mcL (0.0-1.3); Monocytes % 11.7 %; Red Blood Count 3.54 M/mcL (3.82-4.97); Red Cell Distribution Width 19.2 % (11.5-14.5); Segmented Neutrophils % 66.5 %
[2016-08-07 04:44] LABS: Platelet Count 53 K/mcL (140-400)
[2016-08-07 04:52] LABS: Calcium 8.5 mg/dL (8.6-10.8); Potassium 4.3 mEq/L (3.5-4.5)
[2016-08-07 05:09] LABS: Anisocytosis 2+ (Not Present); Platelet Estimate Decreased (Normal)
[2016-08-07] MEDS: Insulin LISPRO 300 UNITS/3 ML VIAL SQ SCH ×2 (07:41→12:16)
[2016-08-07] MEDS: Insulin DETEMIR 100 UNIT/ML X5UNITS SQ SCH (07:42)
[2016-08-07] MEDS: Magnesium Oxide 400 MG TABLET PO SCH (09:18)
[2016-08-07] MEDS: Rifaximin [Xifaxan] 550 MG PO SCH (09:18)
[2016-08-07] MEDS: Cholecalciferol (D-3) 1,000 UNIT TABLET PO SCH (09:18)
[2016-08-07] MEDS: Lactulose Oral Soln 20 GM/30 ML UDC PO SCH (09:18)
[2016-08-07] MEDS: Folic Acid 1 MG TABLET PO SCH (09:18)
[2016-08-07] MEDS: Pantoprazole 40 MG VIAL IVP SCH (09:18)
[2016-08-07] MEDS: Zinc Sulfate 220 MG CAPSULE PO SCH (09:18)
[2016-08-07] MEDS: Aspirin 81 MG TAB.CHEW PO SCH (09:18)
[2016-08-07 11:15] VITALS: BP 158/75
--- NOTE | 2016-08-07 13:57 | Discharge Summary ---
Date of Encounter: 08/07/16 Time of Encounter: 08:30 - Discharge Diagnosis (1) Hepatic encephalopathy Priority: Primary Status: Acute Comments: Patient has been on strict I and O orders per admission. She is return to baseline and is no longer confused. Her ammonia level remained within normal limits after admission. She is continuing her lactulose. Patient has paracentesis weekly. It will need to be done next week again. (2) Cirrhosis Priority: Secondary Status: Chronic Comments: Patient has nonalcoholic cirrhosis. Paracentesis weekly. Lactulose by mouth daily. Most recent paracentesis was on August 05 to the emergency department with 7.5 L was removed. Body fluid culture was negative. Qualifiers: Hepatic cirrhosis type: alcoholic cirrhosis Ascites presence: with ascites Qualified Code(s): K70.31 - Alcoholic cirrhosis of liver with ascites (3) Insulin dependent diabetes mellitus Priority: Secondary Status: Chronic Comments: Chronic. Patient will return to home medications and home regimen for Accu- Cheks. Last A1c in November, was 6.8. (4) Chronic kidney disease, stage IV (severe) Priority: Secondary Status: Chronic Comments: Creatinine and GFR both continue to improve. GFR 32 creatinine 1.56. Continue to avoid nephrotoxins. Follow up with primary care physician for continued monitoring. (5) Anemia of chronic disease Priority: Secondary Status: Chronic Comments: Hemoglobin is 11.1 today. Continues to rise. This is actually much higher than patient's normal baseline. She will continue to take folic acid supplements at home. Patient EGD in March nonbleeding esophageal ulcer. The flexible sigmoid in November as well that was negative for bleeding. Her last colonoscopy was in August, with tubulovillous adenoma. She had an EGD last week by Dr. Thornton. There is edema at the gastroesophageal junction, erythematous mucosa in the gastric fundus and the antrum, the duodenum was normal. Pathology reports are still pending. Diagnosis of melanoma, other diseases stomach and duodenum, other specified diseases of the esophagus. Patient had a bowel movement yesterday with bleeding noted. She has a history of internal hemorrhoids. There is no more bleeding overnight and the hemoglobin actually rafael overnight. Patient was stable for discharge. (6) Ascites Priority: Secondary Status: Acute Comments: Patient paracentesis on August 05 in the emergency department. 7.5 L was removed from her abdomen. The body fluid culture is negative. Her abdomen is slightly more distended than it was on admission. She does have paracentesis weekly. Her abdomen is firm, however it is nontender and there are bowel sounds present. Qualifiers: Ascites type: other type Qualified Code(s): R18.8 - Other ascites - Discharge Medications Home Medications: Cholecalciferol (Vitamin D3) [Vitamin D3] 50,000 unit PO WESA 11/02/14 [History] Magnesium Oxide [Magnesium] 400 mg PO BID 11/02/14 [History] Aspirin 81 mg PO DAILY 30 Days 11/08/14 [Rx] Ipratropium/Albuterol Neb [Duoneb] 3 ml IH Q4HR PRN 04/26/15 [History] Rifaximin [Xifaxan] 550 mg PO BID #60 tablet 05/01/15 [Rx] Cyanocobalamin (Vitamin B-12) [Vitamin B12] 1,000 mcg PO 2XW 09/03/15 [History] Zinc Sulfate 220 mg PO BID 09/03/15 [History] Insulin DETEMIR [Levemir Flextouch] 26 unit SQ BID 10/07/15 [History] Insulin LISPRO [Humalog Kwikpen U-100] 0 unit SQ ACHS 10/07/15 [History] Lactulose 15 ml PO TID PRN 10/07/15 [History] Levothyroxine [Synthroid] 100 mcg PO QAM 10/07/15 [History] Oxygen 2 l NS AD 12/22/15 [History] Ondansetron ODT [Zofran ODT] 4 mg SL TID PRN 04/02/16 [History] raNITIdine HCl [Ranitidine HCl] 150 mg PO BID 04/02/16 [History] Diclofenac Sodium 1 appl TP QID PRN 04/09/16 [History] Midodrine HCl 2.5 mg PO TID 05/19/16 [History] HYDROcodone/Acet 5/325 mg [[place] 5-325 mg] 1 tab PO Q8H PRN 07/14/16 [History] Pantoprazole Sodium [Protonix] 40 mg PO DAILY 07/14/16 [History] Folic Acid 1 mg PO DAILY #30 tablet 07/27/16 [Rx] Allergies/Adverse Reactions: Allergies No Known Allergies Allergy (Verified 07/14/16 11:53) Date of admission: 08/05/16 11:07 Primary care physician: Travis Deng Jr, MD Consults: 08/05/16 11:[address] [CONS] Routine Reason for SW Consult: readmit, discharge planning Discharging clinician: Leatha Braswell Anticipated date of discharge: 08/07/16 - Patient Status Disposition: Home, Self-Care Condition: Good Functional capacity at discharge: wheelchair bound Overall status at discharge: patient is back to baseline - Discharge Instructions Follow Up With: NO,PCP [Non-Partnered Physician] - Additional Instructions: Follow-up appointments: If there is not an appointment listed below, please call your physician and schedule a follow-up appointment. If you have congestive heart failure and your symptoms return, make an appointment with your physician. Medication List: Carry an up to date list of medications you are taking at all time. We have given you an updated medication list including any new medications that you have been prescribed. Please provide that list to your primary provider Symptoms: If your condition changes or you experience any of the following symptoms, notify your physician immediately: Unusual or worsening pain, fever, persistent nausea and vomiting, bleeding, increase in swelling (especially in your legs), sudden weight gain, extreme dizziness, chest pain, increased drainage or redness from a wound or incision. Go to the emergency department if you experience a problem with breathing. Weights: If you have a history of swelling or shortness of breath, weigh yourself daily and notify your physician if you have a weight gain of two or more pounds in one day or 5 or more pounds in a week. If you experience any of the warning signs for stroke: Sudden numbness or weakness of the face, arm or leg; especially on one side of the body, sudden confusion, trouble speaking or understanding, sudden trouble seeing in one or both eyes, sudden trouble walking, dizziness, loss of balance or coordination, sudden sever headache with no cause; Call 911 or go to the emergency room. Stroke is a medical emergency. Some risk factors for stroke: Age, cigarette smoking, diabetes, excessive alcohol consumption, family history , high blood pressure, overweight, physical inactivity, prior stroke, heart attack, diagnosis of carotid artery stenosis or other artery disease. If you smoke, STOP: Smoking or tobacco use significantly increases your risk of heart and lung disease. Your chance of disease greatly increases if you continue to smoke. For more information, call the [place] tobacco quit line for smoking cessation QUIT-NOW ( ) - Diet and Activity Activity: increase activity as tolerated Diet: low salt diet Hospital course: Ms. Flores is a 76 year old female presents to the emergency room with alcoholic cirrhosis, chronic ascites, hematocrit disease, diabetes and, stage IV renal disease. She was admitted on August 05 to the emergency room after she was unable to be aroused by her son. She is paracentesis weekly, became tachycardic and the appointment, son could not arouse her. She has history of hepatic encephalopathy with elevated ammonia levels. On arrival was only slightly elevated. She took increased doses of lactulose and by the next morning had returned back to her baseline. Paracentesis in the emergency department. 7.5 and the body fluid culture was negative. Patient remained at baseline and was ready to be discharged yesterday, when she had a rather large bowel movement have a lot of blood in it, per her primary nurse. She has had multiple GI bleeds and scopes recently, along with her chronic anemia. She was observed again overnight. She has a history of internal hemorrhoids recently noted on scope. Her hemoglobin actually increased overnight. Hemoglobin is 11.1 today, this is actually higher than her baseline. She said no bleeding since this time. Her renal function has continued to improve throughout the visit. Today creatinine is 1.59 and GFR is 32. Patient will need to maintain a 2 L fluid restriction diet as well as a low-salt diet. Family is aware of this and we discussed strategies to keep patient on target. She lives at home with her son to care for her. She is extremely well cared for. Blood cultures 2 were negative, as was urine culture was mixed and unable to be resulted. There is no bacteria and the initial urine and patient is asymptomatic. Patient's vital signs and other labs have remained within normal limits and stable. Patient's abdomen is slightly distended again, it is nontender to palpation, there is no fluid wave noted at this time. There are bowel sounds present. Patient does have paracentesis every week. She is stable and appropriate for discharge. - Time Spent with Patient Total time spent providing and/or coordinating discharge services: - Constitutional Vitals: Temp Pulse Resp BP Pulse Ox 97.9 F 90 17 158/75 98 08/07/16 11:14 08/07/16 11:14 08/07/16 11:14 08/07/16 11:14 08/07/16 11:14 General appearance: Present: cooperative, A&O X 3, pleasant, no acute distress, answers questions appropriately - Head Head exam: Present: normal inspection - Eye Eye exam: Present: normal appearance, conjuntiva pink - ENT ENT exam: Present: mucous membranes moist, normal exam, normal external ear exam - Neck Neck exam general surgery: Present: normal inspection. Absent: lymphadenopathy , tenderness - Respiratory Respiratory exam: Present: CTAB. Absent: rales, respiratory distress, rhonchi, stridor, wheezes, tachypnea - Cardiovascular Cardiovascular exam: Present: RRR, +S1, +S2. Absent: bradycardia, diastolic murmur, systolic murmur, tachycardia - GI/Abdominal GI/Abdominal exam: Present: distended, firm, mass. Absent: tenderness - Extremities Exam Extremities exam: Present: warm, radial pulses palpable and symetrical. Absent : pedal edema, tenderness - Neurological Exam Neurological exam: Present: alert, oriented X3, no focal deficits. Absent: facial droop, speech deficit - Skin Skin exam: Present: dry, intact, normal color, warm. Absent: rash - VTE Documentation of Mechanical Device: Graduated compression elastic hosiery
[2016-08-08 09:43] LABS: LDH,Peritoneal Fluid 36 Units/L (No Ref Range)
[2016-08-08 09:45] LABS: Total Protein,Peritoneal Fluid < 0.8 g/dL (No Ref Range)
== END 2016-08-07 15:17 | disposition home or self-care (01) | DRG 442 ==
LOC: 3BNU 09:58 → EMEROO 09:58 → 3BNU 13:51
PROVIDERS: ADMIT Internal Medicine; ATTEND Registered Nurse

== ENCOUNTER 2016-09-09 11:22 | Inpatient (IN) ==
[2016-09-09] MEDS ORDERED: Pantoprazole 40 MG VIAL IVP ONE (12:12)
[2016-09-09 12:34] LABS: Hematocrit 18.7 % (35.3-44.9); Mean Corpuscular HGB Conc 29.4 g/dL (31.6-35.5); Mean Corpuscular Hemoglobin 31.6 pg (28.0-33.3); Mean Corpuscular Volume 107.5 fL (83.0-100.0); Mean Platelet Volume 12.1 fL (9.4-12.4); Red Blood Count 1.74 M/mcL (3.82-4.97)
--- NOTE | 2016-09-09 12:40 | Emergency Department Note ---
Disposition Clinical Impression: Hyperkalemia Anemia Qualifiers: Anemia type: unspecified type Qualified Code(s): D64.9 - Anemia, unspecified Renal failure (ARF), acute on chronic Qualifiers: Acute renal failure type: unspecified Chronic kidney disease stage: unspecified stage Qualified Code(s): N17.9 - Acute kidney failure, unspecified; N18.9 - Chronic kidney disease, unspecified Disposition: Admitted As Inpatient Condition: Fair Referrals: Travis Deng Jr, MD [Primary Care Provider] - Forms: ED Satisfaction Letter General Adult HPI - General Chief complaint: ED Recheck/Abnormal Lab/Rx Stated complaint: Low Hemoglobin Time Seen by Provider: 09/09/16 11:53 Source: patient Limitations: no limitations Nursing Notes Reviewed: Yes Vital Signs Reviewed: Yes - History of Present Illness HPI Narrative: Patient has a history of cirrhosis and presents on referral from the primary care doctor with a hemoglobin which is less than 6 and she does have generalized weakness which has been going on for the last several months however this is not necessarily worsened. She does have a complaint of weight loss. She does not have any evidence of blood in the stool. Does have bruising of the skin which is not new. Denies any pain in the head, neck, chest , abdomen or back. The patient is here with her son. Social history: No smoking or alcohol or history of alcohol use. It is thought that his cirrhosis is from her diabetes as well as medications that she has used in the past. Pain Scale: 0 - Related Data Home Medications Medication Instructions Recorded Confirmed Cholecalciferol (Vitamin D3) 50,000 unit PO WESA 11/02/14 09/09/16 [Vitamin D3] Magnesium Oxide [Magnesium] 400 mg PO BID 11/02/14 09/09/16 Ipratropium/Albuterol Neb [Duoneb] 3 ml IH Q4HR PRN 04/26/15 09/09/16 Cyanocobalamin (Vitamin B-12) 1,000 mcg PO BID 09/03/15 09/09/16 [Vitamin B12] Zinc Sulfate 220 mg PO BID 09/03/15 09/09/16 Insulin DETEMIR [Levemir Flextouch] 16 unit SQ BID 10/07/15 09/09/16 Lactulose 15 ml PO TID PRN 10/07/15 09/09/16 Levothyroxine [Synthroid] 100 mcg PO QAM 10/07/15 09/09/16 Oxygen 2 l NS AD 12/22/15 09/09/16 Ondansetron ODT [Zofran ODT] 4 mg SL TID PRN 04/02/16 09/09/16 raNITIdine HCl [Ranitidine HCl] 150 mg PO BID 04/02/16 09/09/16 Diclofenac Sodium 1 appl TP QID PRN 04/09/16 09/09/16 Midodrine HCl 2.5 mg PO TID 05/19/16 09/09/16 HYDROcodone/Acet 5/325 mg [[place] 1 tab PO Q8H PRN 07/14/16 09/09/16 5-325 mg] Pantoprazole Sodium [Protonix] 40 mg PO DAILY 07/14/16 09/09/16 FLUoxetine HCl [PROzac] 20 mg PO DAILY 09/09/16 09/09/16 Sucralfate [Carafate] 1 gm PO BID 09/09/16 09/09/16 Previous Rx's Medication Instructions Recorded Aspirin 81 mg PO DAILY 30 Days 11/08/14 Rifaximin [Xifaxan] 550 mg PO BID #60 tablet 05/01/15 Folic Acid 1 mg PO DAILY #30 tablet 07/27/16 Allergies Allergy/AdvReac Type Severity Reaction Status Date / Time No Known Allergies Allergy Verified 09/09/16 11:41 Review of Systems: Constitutional: No fever Vision: No blurred vision ENT: No rhinorrhea Respiratory: No cough Allergic: No allergies : No blood in urine GI: No blood in stool Hematologic: No new bruising Dermatologic: No skin rash Musculoskeletal: No pain in the extremities Neuro: No new numbness of the extremities, but does have chronic numbness of bilateral lower extremities secondary to peripheral neuropathy from diabetes Past Medical History - Past Medical History Medical history: Reports: arthritis, cirrhosis, COPD, dementia, diabetes, GERD, glaucoma, hepatitis, hyperlipidemia, hypertension, liver disease, osteoporosis, renal disease, thyroid disease Surgical history: Reports: herniorrhaphy Psychiatric history: Reports: no psych history 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 EYES: PERRL, no scleral icterus. NOSE: The nose is normal in appearance without rhinorrhea RESP: Normal chest excursion with respiration; breath sounds clear and equal bilaterally; no wheezes, rhonchi, or rales CARD: Regular rhythm, without murmurs, rub or gallop ABD: Non-distended; non-tender, soft,without rigidity, rebound or guarding SKIN: Normal for age and race; warm and dry; no apparent lesions Rectal: Done by the medical student with no evidence of gross blood in the stool - General Limitations: no limitations General appearance: alert Course Vital Signs Temperature 98.2 F 09/09/16 11:41 Pulse Rate 77 09/09/16 11:41 Respiratory Rate 20 09/09/16 11:41 Blood Pressure 121/65 09/09/16 11:41 O2 Sat by Pulse Oximetry 94 09/09/16 11:41 Temperature 98.2 F 09/09/16 11:41 Pulse Rate 77 09/09/16 11:41 Respiratory Rate 20 09/09/16 11:41 Blood Pressure 121/65 09/09/16 11:41 O2 Sat by Pulse Oximetry 94 09/09/16 11:41 Oxygen Delivery Oxygen Delivery Room Air Medical Decision Making - MDM Narrative Medical decision making narrative: Patient does have labs ordered including type and screen and also crossmatch and the patient will be transfused and admitted. 240 I did review the patient's labs showing significant anemia and a blood transfusion is ordered and additionally she does have hyperkalemia with worsened chronic renal failure and I did compare this to previous creatinine levels. She will receive dextrose, insulin, sodium bicarbonate, IV fluids. She is also receiving IV Protonix. Does have Hemoccult positive stool but does not have gross blood in the stool and I do not suspect a rapidly bleeding esophageal ulcer or varices however this will be continued to be monitored and further evaluated as an inpatient. [id number] - Medical Records Medical records reviewed: Yes I reviewed the patient's medical records. - Lab Data Lab results reviewed: Yes I reviewed the patient's lab results. Result diagrams: 09/09/16 12:23 09/09/16 12:09 Lab Results 09/09/16 09/09/16 09/09/16 Range/Units 12:09 12:12 12:23 WBC 3.0 L (4.3-11.1) K/mcL RBC 1.74 L (3.82-4.97) M/mcL Hgb 5.5 L* (11.5-15.4) g/dL Hct 18.7 L (35.3-44.9) % MCV 107.5 H (83.0-100.0) fL MCH 31.6 (28.0-33.3) pg MCHC 29.4 L (31.6-35.5) g/dL RDW 18.0 H (11.5-14.5) % Plt Count 44 L (140-400) K/mcL MPV 12.1 (9.4-12.4) fL Sodium 136 (136-145) mEq/L Potassium 6.2 H (3.5-4.5) mEq/L Chloride 111 H (98-109) mEq/L Carbon Dioxide 19 (19-29) mEq/L BUN 54 H (7-20) mg/dL Creatinine 3.18 H (0.57-1.11) mg/dL Est GFR ( Amer) 17 L (> 60) Est GFR (Non-Af Amer) 14 L (> 60) BUN/Creatinine Ratio 17 (6-26) Glucose 239 H (70-99) mg/dL Calculated Osmolality 305 H (280-300) Calcium 8.3 L (8.6-10.8) mg/dL Total Bilirubin (0.2-1.2) mg/dL Direct Bilirubin (0.0-0.5) mg/dL Indirect Bilirubin (0.0-1.2) mg/dL AST (5-34) Units/L ALT (0-55) Units/L Alkaline Phosphatase (38-126) Units/L Serum Total Protein (6.0-8.3) g/dL Albumin (3.5-5.0) g/dL Globulin (2.4-3.5) g/dL Albumin/Globulin Ratio (1.1-2.2) Stool Occult Blood Positive A (Negative) Blood Type Antibody Screen Crossmatch 09/09/16 09/09/16 Range/Units 12:23 12:23 WBC (4.3-11.1) K/mcL RBC (3.82-4.97) M/mcL Hgb (11.5-15.4) g/dL Hct (35.3-44.9) % MCV (83.0-100.0) fL MCH (28.0-33.3) pg MCHC (31.6-35.5) g/dL RDW (11.5-14.5) % Plt Count (140-400) K/mcL MPV (9.4-12.4) fL Sodium (136-145) mEq/L Potassium (3.5-4.5) mEq/L Chloride (98-109) mEq/L Carbon Dioxide (19-29) mEq/L BUN (7-20) mg/dL Creatinine (0.57-1.11) mg/dL Est GFR ( Amer) (> 60) Est GFR (Non-Af Amer) (> 60) BUN/Creatinine Ratio (6-26) Glucose (70-99) mg/dL Calculated Osmolality (280-300) Calcium (8.6-10.8) mg/dL Total Bilirubin 0.8 (0.2-1.2) mg/dL Direct Bilirubin 0.4 (0.0-0.5) mg/dL Indirect Bilirubin 0.4 (0.0-1.2) mg/dL AST 26 (5-34) Units/L ALT 13 (0-55) Units/L Alkaline Phosphatase 111 (38-126) Units/L Serum Total Protein 5.8 L (6.0-8.3) g/dL Albumin 3.5 (3.5-5.0) g/dL Globulin 2.3 L (2.4-3.5) g/dL Albumin/Globulin Ratio 1.5 (1.1-2.2) Stool Occult Blood (Negative) Blood Type O POSITIVE Antibody Screen NEGATIVE Crossmatch See Detail Critical Care Time Critical Care Time: No
[2016-09-09 12:46] LABS: Calcium 8.3 mg/dL (8.6-10.8)
[2016-09-09 12:47] LABS: Albumin 3.5 g/dL (3.5-5.0); Albumin/Globulin Ratio 1.5 (1.1-2.2); Bilirubin,Direct 0.4 mg/dL (0.0-0.5); Bilirubin,Indirect 0.4 mg/dL (0.0-1.2); Bilirubin,Total 0.8 mg/dL (0.2-1.2); Globulin 2.3 g/dL (2.4-3.5); Total Protein 5.8 g/dL (6.0-8.3)
[2016-09-09 12:48] LABS: Potassium 6.2 mEq/L (3.5-4.5)
[2016-09-09 12:51] LABS: Platelet Count 44 K/mcL (140-400)
[2016-09-09 12:56] LABS: Hemoglobin 5.5 g/dL (11.5-15.4)
[2016-09-09] MEDS ORDERED: 0.9 % Sodium Chloride 500 ML IVC ONE (13:03)
[2016-09-09] MEDS ORDERED: Insulin Human Regular 10 UNIT in 0.9 % Sodium Chloride 10 ML IV ONE (13:03)
[2016-09-09] MEDS ORDERED: *HR* Dextrose 50 % in Water (Syg) 50 ML SYRINGE IVP ONE (13:03)
[2016-09-09] MEDS ORDERED: Sodium Bicarbonate 50 MEQ/50 ML VIAL IVP ONE (13:03)
--- NOTE | 2016-09-09 13:52 | Event Note ---
Date of Encounter: 09/09/16 Time of Encounter: 13:48 1. Acute on chronic anemia possibly blood loss with history of esophageal ulcer that was not bleeding, history of esophageal varices, consider possible acute GI bleed likely upper Keep nothing by mouth, IV fluids, order 2 units of blood, 2 IV lines Protonix IV 40 mediums twice a day, and GI consult, monitor CBC and consider further transfusions Hold aspirin 2. Acute on chronic renal failure with history of chronic kidney disease stage IV likely exacerbated by blood loss Ordered IV fluids 3. 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 Hyperkalemia, order some gluconate, IV fluids, albuterol, consider Kayexalate but we will avoided for now as the patient will be nothing by mouth Consider using insulin and dextrose 50 Monitor potassium Protonix IV for GI prophylaxis and sequential compression devices for DVT prophylaxis. Patient will be admitted as inpatient, expected to stay more than 2 midnights. She is a DNR CC arrest DNI according to his son. Time spent on this admission 40 minutes. High risk due to GI bleed. H&P will be written by WILBERTO Chawla
[2016-09-09] MEDS ORDERED: Naloxone 0.4 MG/ML INJ IVP PRN (14:16)
[2016-09-09] MEDS ORDERED: D5% in Water 1,000 ML IVC PRN (14:37)
[2016-09-09] MEDS ORDERED: Dextrose Gel 15 GM PO PRN ×2 (14:37)
--- NOTE | 2016-09-09 14:43 | Internal Med History&Physical ---
<Ying Chawla - Last Filed: 09/09/16 15:08> Date of Encounter: 09/09/16 Time of Encounter: 14:00 Assessment and Plan (1) GI bleed Current visit: Yes Status: Acute 1 EGD 04/14/2016 with nonbleeding esophageal ulcer portal hypertensive gastropathy, flexible sigmoidoscopy 04/14/2016 with internal hemorrhoids history of grade 2 varices banded 04/30/2015-she is on aspirin-she does admit to metabolic stools over the past week. Hemoglobin was 5.1 outpatient lab. Recheck on arrival to ER Hemoccult 5.5, stool positive. Type and screen 2 units PRBCs transfused-monitor H&H 2. Protonix 40mg IV twice a day 3 nothing by mouth 4 consult GI Qualifiers: GI bleed type/associated pathology: melena Qualified Code(s): K92.1 - Melena (2) Acute blood loss anemia Current visit: No Status: Acute 1 hemoglobin 5.5 down from 09/01/16 when it was 7.5. Type and screen 2 units and transfuse. Continue to monitor H&J-Ueqdjrjti-tfpcpspd-consult GI (3) Hyperkalemia Current visit: Yes Status: Acute 1 potassium is 6.2-patient was given insulin sodium bicarbonate in the ER will get IV fluids and continue to monitor 2 continuous cardiac monitoring-no changes on EKG Acute on chronic anemia possibly blood loss with history of esophageal ulcer that was not bleeding, history of esophageal varices, consider possible acute GI (4) Renal failure (ARF), acute on chronic Current visit: Yes Status: Acute 1 creatinine is 3.18 baseline appears to be 1.8-2. This likely related to blood loss. We will transfer to PRBCs as well as given IV fluids continue to monitor creatinine. Continue to monitor electrolytes 2 monitor intake and output and daily weights [address] Portillo was consulted per ER Qualifiers: Acute renal failure type: unspecified Chronic kidney disease stage: stage 4 (severe) Qualified Code(s): N17.9 - Acute kidney failure, unspecified; N18.4 - Chronic kidney disease, stage 4 (severe) (5) COPD (chronic obstructive pulmonary disease) Current visit: No Status: Chronic 1 presently stable we will continue with oxygen titrated to maintain SPO2 greater than 92% 2 bronchodilators Qualifiers: COPD type: unspecified COPD Qualified Code(s): J44.9 - Chronic obstructive pulmonary disease, unspecified (6) Diabetes Current visit: No Status: Acute Qualifiers: Diabetes mellitus type: type 2 Diabetes mellitus complication status: with kidney complications Diabetes mellitus complication detail: with chronic kidney disease Diabetes mellitus retirement insulin use: with retirement use Chronic kidney disease stage: stage 3 (moderate) Qualified Code(s): E11.22 - Type 2 diabetes mellitus with diabetic chronic kidney disease; N18.3 - Chronic kidney disease, stage 3 (moderate); 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 We will continue his outpatient and consult IR as needed 2 we will check ammonia level-continue with lactulose (8) Thrombocytopenia Current visit: No Status: Chronic 1 this is chronic secondary to her cirrhosis who continues to monitor 2 monitor for any signs and symptoms of bleeding transfused platelets once less than 20 (9) DVT prophylaxis Current visit: No Status: Acute SCDs Internal Medicine - H&P: HPI Chief complaint: low Hgb Admitted From: Emergency Dept Plans for Post Hospital Care: Home History of present illness: Ms. Flores is a 76 year old female past medical history of SNOWDEN cirrhosis we current hepatic cephalopathy pancytopenia CK D stage III DM T2 hypertension COPD oxygen dependent 2 L nasal cannula history of grade 2 esophageal varices previously banded. Patient receives paracentesis weekly-she had paracentesis yesterday with approximately 4-1/2 L removed no adverse effects. Patient had routine lab work drawn yesterday she was notified by Dr. Styles office hemoglobin was low less then 6 report to the ER for evaluation. According to her son patient has been experiencing some black tarry stools over the past week. She has been sleeping more often, and lethargic. He admits that she has been compliant with her medication and has been taking her lactulose. The patient denies any nausea vomiting , diarrhea hematemesis . Denies any fevers chills chest pain. She does admit to fatigue and shortness of breath. She presented to the ER for evaluation. According to ER records lab work did reveal hemoglobin of 5.5 which is down from previous which was 7.5 on 7/18/17. She does have decrease in her renal function creatinine 3.18 which appears baseline is around 1.8-2 and some hyperkalemia. EKG with no elevated T waves. Occult stool was positive Patient was given sodium bicarbonate insulin in the ER for hyperkalemia. She was given Protonix 80 mg IV She was typed and screened for 2 units of PRBCs first unit is transfusing. Dr. Espinoza was consulted. She has been admitted for further workup evaluation. Presently patient denies any chest or abdominal pain. She does not appear to be any respiratory distress. She is lethargic and arouses to verbal stimuli she is alert and oriented 2 Her abdomen is distended soft nontender to palpation. Lung sounds are clear throughout. Heart sounds are regular S1 and S2 with no rubs clicks gallops murmurs noted. No peripheral edema noted. Presently she is hemodynamically stable. I reviewed this case with Dr. Kelly who agrees to plan. Past Med Surg Social Fam HX - Past Medical History Medical history: arthritis, cirrhosis, COPD, dementia, diabetes, GERD, glaucoma , hepatitis, hyperlipidemia, hypertension, liver disease, osteoporosis, renal disease, thyroid disease Psychiatric history: no psych history - Past Surgical History Surgical History: herniorrhaphy - Social History Smoking Status: Never smoker Smokeless Tobacco Status: No Alcohol use: none Drug use: none - Family History Sister Adopted: No Living Status: Hx Family Cardiac Disorders: Yes Hx Family Respiratory Disorders: Yes Hx Family Cancer: Yes Hx Family GI Disorders: Yes (cirrhosis) Hx Family Endocrine Disorder: No Hx Family Neuromuscular Disorders: No Hx Family Neurologic Disorders: No Hx Family HEENT Disorders: No Hx Family Autoimmune Disorders: No Mother Adopted: No Family Member Ethnicity: Non- Living Status: Hx Family Cardiac Disorders: Yes Father Hx Family Cardiac Disorders: Yes ([place]) Son Adopted: No Family Member Ethnicity: Non- Living Status: Still Living Hx Family Cardiac Disorders: Yes (HTN) Hx Family Respiratory Disorders: No Hx Family Cancer: No Hx Family GI Disorders: No Hx Family Endocrine Disorder: No Hx Family Neuromuscular Disorders: No Hx Family Neurologic Disorders: No Hx Family HEENT Disorders: No Hx Family Autoimmune Disorders: No Internal Medicine - H&P: Meds Cholecalciferol (Vitamin D3) [Vitamin D3] 50,000 unit PO WESA 11/02/14 [History] Magnesium Oxide [Magnesium] 400 mg PO BID 11/02/14 [History] Aspirin 81 mg PO DAILY 30 Days 11/08/14 [Rx] Ipratropium/Albuterol Neb [Duoneb] 3 ml IH Q4HR PRN 04/26/15 [History] Rifaximin [Xifaxan] 550 mg PO BID #60 tablet 05/01/15 [Rx] Cyanocobalamin (Vitamin B-12) [Vitamin B12] 1,000 mcg PO BID 09/03/15 [History] Zinc Sulfate 220 mg PO BID 09/03/15 [History] Insulin DETEMIR [Levemir Flextouch] 16 unit SQ BID 10/07/15 [History] Lactulose 15 ml PO TID PRN 10/07/15 [History] Levothyroxine [Synthroid] 100 mcg PO QAM 10/07/15 [History] Oxygen 2 l NS AD 12/22/15 [History] Ondansetron ODT [Zofran ODT] 4 mg SL TID PRN 04/02/16 [History] raNITIdine HCl [Ranitidine HCl] 150 mg PO BID 04/02/16 [History] Diclofenac Sodium 1 appl TP QID PRN 04/09/16 [History] Midodrine HCl 2.5 mg PO TID 05/19/16 [History] HYDROcodone/Acet 5/325 mg [[place] 5-325 mg] 1 tab PO Q8H PRN 07/14/16 [History] Pantoprazole Sodium [Protonix] 40 mg PO DAILY 07/14/16 [History] Folic Acid 1 mg PO DAILY #30 tablet 07/27/16 [Rx] FLUoxetine HCl [PROzac] 20 mg PO DAILY 09/09/16 [History] Sucralfate [Carafate] 1 gm PO BID 09/09/16 [History] Allergies No Known Allergies Allergy (Verified 09/09/16 11:41) All Systems PM: A 10-system review of systems was performed and is negative for pertinent findings except as documented above in the HPI. - Constitutional Constitutional: fatigue, weakness - EENT Eyes: no change in vision, no discharge, no pain, no photophobia Ears: no ear discharge, no ear pain, no tinnitus Nose, mouth and throat: no dysphagia, no nasal discharge, no neck pain, no sore throat - Cardiovascular Cardiovascular ROS IM: no chest pain, no diaphoresis, no dyspnea, no lightheadedness, no palpitations, no syncope - Respiratory Respiratory: no cough, no dyspnea, no wheezing, no excessive phlegm production - Gastrointestinal Gastrointestinal: bloating, loose stools, melena, no abdominal pain, no hematemesis, no hematochezia, no nausea, no vomiting - Genitourinary Genitourinary: no change in urinary stream, no dysuria, no flank pain, no hematuria - Musculoskeletal Musculoskeletal ROS IM: no numbness, no tingling - Integumentary Integumentary IM: no rash, no unusual bruising - Neurological Neurological ROS: no confusion, no convulsions, no focal weakness, no numbness, no tingling, no tremor(s) - Hematologic/Lymphatic Hematologic/Lymphatic: easy bruising - Constitutional Vitals: Temp Pulse Resp BP Pulse Ox 98.3 F 74 16 133/51 98 09/09/16 14:09 09/09/16 14:09 09/09/16 14:33 09/09/16 14:33 09/09/16 14:09 General appearance: Present: A&O X 2, answers questions appropriately - Head Head exam: Present: atraumatic, normocephalic - Eye Eye exam: Present: PERRL, conjuntiva pink, sclera anicteric Pupils: Present: PERRL - Neck Neck exam general surgery: Present: supple, trachea midline. Absent: lymphadenopathy - Respiratory Respiratory exam: Present: CTAB. Absent: accessory muscle use, rales, rhonchi, wheezes - Cardiovascular Cardiovascular exam: Present: RRR, +S1, +S2. Absent: diastolic murmur, gallop, rubs, systolic murmur - GI/Abdominal GI/Abdominal exam: Present: distended, normal bowel sounds, soft, no peritoneal signs. Absent: tenderness - Extremities Exam Extremities exam: Present: warm, radial pulses palpable and symetrical. Absent : calf tenderness, cyanotic, pedal edema - Neurological Exam Neurological exam: Present: CN II-XII intact, oriented X3, no focal deficits. Absent: pronater drift, facial droop, speech deficit - Skin Skin exam: Present: dry, intact Internal Med - H&P Results - Labs CBC & Chem 7: 09/09/16 12:23 09/09/16 12:09 - EKG Data EKG shows normal: sinus rhythm - EKG Data Prior EKG available for review: yes When compared to previous EKG: there is no significant change <You Lennon H - Last Filed: 09/09/16 15:19> Date of Encounter: 09/09/16 Internal Medicine - H&P: HPI History of present illness: Ms. Flores is a 76 year old female All Systems PM: A 10-system review of systems was performed and is negative for pertinent findings except as documented above in the HPI. - Constitutional Vitals: Temp Pulse Resp BP Pulse Ox 98.3 F 74 16 133/51 98 09/09/16 14:09 09/09/16 14:09 09/09/16 14:33 09/09/16 14:33 09/09/16 14:09 Internal Med - H&P Results - Labs CBC & Chem 7: 09/09/16 12:23 09/09/16 12:09 - Attending Attestation 1. Acute on chronic anemia possibly blood loss with history of esophageal ulcer that was not bleeding, history of esophageal varices, consider possible acute GI bleed likely upper Keep nothing by mouth, IV fluids, order 2 units of blood, 2 IV lines Protonix IV 40 mediums twice a day, and GI consult, monitor CBC and consider further transfusions Hold aspirin 2. Acute on chronic renal failure with history of chronic kidney disease stage IV likely exacerbated by blood loss Ordered IV fluids 3. 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 Hyperkalemia, order some gluconate, IV fluids, albuterol, consider Kayexalate but we will avoided for now as the patient will be nothing by mouth Consider using insulin and dextrose 50 Monitor potassium Protonix IV for GI prophylaxis and sequential compression devices for DVT prophylaxis. Patient will be admitted as inpatient, expected to stay more than 2 midnights. She is a DNR CC arrest DNI according to his son. Time spent on this admission 40 minutes. High risk due to GI bleed. For this encounter, I have reviewed the POPULATION GENETICIST or PA documentation, treatment plan, and medical decision making; and I have had face to face time with this patient.
[2016-09-09] MEDS: Insulin LISPRO 300 UNITS/3 ML VIAL SQ SCH (18:13)
[2016-09-09] MEDS: Lactulose Oral Soln 20 GM/30 ML UDC PO SCH (20:24)
[2016-09-09] MEDS: 0.9 % Sodium Chloride 1,000 ML IVC SCH (21:00)
[2016-09-10 04:36] LABS: Immature Granulocytes % 0.7 % (0-4)
[2016-09-10 04:38] LABS: Basophils % 0.7 %; Eosinophils # 0.1 K/mcL (0.0-0.6); Hematocrit 25.2 % (35.3-44.9); Hemoglobin 7.9 g/dL (11.5-15.4); Immature Platelets 7.1 % (1.1-6.1); Lymphocytes # 0.5 K/mcL (0.6-4.6); Lymphocytes % 17.5 %; Mean Corpuscular HGB Conc 31.3 g/dL (31.6-35.5); Mean Corpuscular Hemoglobin 30.6 pg (28.0-33.3); Mean Corpuscular Volume 97.7 fL (83.0-100.0); Mean Platelet Volume 12.2 fL (9.4-12.4); Monocytes # 0.3 K/mcL (0.0-1.3); Monocytes % 11.5 %; Neutrophils # 1.8 K/mcL (1.6-8.9); Red Blood Count 2.58 M/mcL (3.82-4.97); Red Cell Distribution Width 20.3 % (11.5-14.5); Segmented Neutrophils % 66.6 %
[2016-09-10 04:42] LABS: Platelet Count 40 K/mcL (140-400)
[2016-09-10 04:54] LABS: Calcium 8.4 mg/dL (8.6-10.8); Magnesium 2.8 mg/dL (1.6-2.6)
[2016-09-10 05:25] LABS: Platelet Estimate Decreased (Normal)
[2016-09-10] MEDS: Insulin LISPRO 300 UNITS/3 ML VIAL SQ SCH ×4 (05:45→18:47)
--- NOTE | 2016-09-10 08:19 | Nephrology Consult Note ---
Date of Encounter: 09/10/16 Time of Encounter: 08:17 Assessment and Plan (1) Acute kidney failure, unspecified Current Visit: Yes Status: Acute The patient has a clinical picture of acute kidney injury superimposed on stage IV chronic kidney disease. Her acute kidney injury is due to acute blood loss anemia and possibly also a contribution from her recent paracentesis on September 08 at which time 4.5 L was removed. Patient's renal function is starting to improve. I would continue the IV fluids. She has some mild hyperkalemia that we can treat with some Kayexalate. We will continue to monitor her renal function. Qualifiers: Acute renal failure type: unspecified Qualified Code(s): N17.9 - Acute kidney failure, unspecified (2) Chronic kidney disease, stage IV (severe) Current Visit: Yes Status: Acute (3) Acute blood loss anemia Current Visit: Yes Status: Acute (4) Cirrhosis of liver with ascites Current Visit: Yes Status: Acute Qualifiers: Hepatic cirrhosis type: alcoholic cirrhosis Qualified Code(s): K70.31 - Alcoholic cirrhosis of liver with ascites History of Present Illness - History of Present Illness This is a 76-year-old female followed as an outpatient for stage IV chronic kidney disease. Baseline creatinine ranges from 1.8-2.5. Patient has had multiple hospital admissions for acute decrease in hemoglobin. She again had outpatient blood work done and was told to come to the emergency room after the result came back as a hemoglobin of 5.5. She had mild hyperkalemia with a potassium of 6.2. She has been transfused 2 units of blood. She said that she has noted some black stools. She says otherwise she has been feeling her usual state of health. She denies any change in shortness of breath. She does have cirrhosis with ascites. Her last paracentesis was on September 08. She denies any peripheral edema. She has been placed on IV fluids overnight his serum creatinine is improving back towards baseline. Past Med Surg Social Fam HX - Past Medical History Medical history: arthritis, cirrhosis, COPD, dementia, diabetes, GERD, glaucoma , hepatitis, hyperlipidemia, hypertension, liver disease, osteoporosis, renal disease, thyroid disease Psychiatric history: no psych history - Past Surgical History Surgical History: herniorrhaphy - Social History Smoking Status: Never smoker Smokeless Tobacco Status: No Alcohol use: none Drug use: none - Family History Sister Adopted: No Living Status: Hx Family Cardiac Disorders: Yes Hx Family Respiratory Disorders: Yes Hx Family Cancer: Yes Hx Family GI Disorders: Yes (cirrhosis) Hx Family Endocrine Disorder: No Hx Family Neuromuscular Disorders: No Hx Family Neurologic Disorders: No Hx Family HEENT Disorders: No Hx Family Autoimmune Disorders: No Mother Adopted: No Family Member Ethnicity: Non- Living Status: Hx Family Cardiac Disorders: Yes Father Hx Family Cardiac Disorders: Yes ([place]) Son Adopted: No Family Member Ethnicity: Non- Living Status: Still Living Hx Family Cardiac Disorders: Yes (HTN) Hx Family Respiratory Disorders: No Hx Family Cancer: No Hx Family GI Disorders: No Hx Family Endocrine Disorder: No Hx Family Neuromuscular Disorders: No Hx Family Neurologic Disorders: No Hx Family HEENT Disorders: No Hx Family Autoimmune Disorders: No Medications and Allergies Cholecalciferol (Vitamin D3) [Vitamin D3] 50,000 unit PO WESA 11/02/14 [History] Magnesium Oxide [Magnesium] 400 mg PO BID 11/02/14 [History] Aspirin 81 mg PO DAILY 30 Days 11/08/14 [Rx] Ipratropium/Albuterol Neb [Duoneb] 3 ml IH Q4HR PRN 04/26/15 [History] Rifaximin [Xifaxan] 550 mg PO BID #60 tablet 05/01/15 [Rx] Cyanocobalamin (Vitamin B-12) [Vitamin B12] 1,000 mcg PO BID 09/03/15 [History] Zinc Sulfate 220 mg PO BID 09/03/15 [History] Insulin DETEMIR [Levemir Flextouch] 16 unit SQ BID 10/07/15 [History] Lactulose 15 ml PO TID PRN 10/07/15 [History] Levothyroxine [Synthroid] 100 mcg PO QAM 10/07/15 [History] Oxygen 2 l NS AD 12/22/15 [History] Ondansetron ODT [Zofran ODT] 4 mg SL TID PRN 04/02/16 [History] raNITIdine HCl [Ranitidine HCl] 150 mg PO BID 04/02/16 [History] Diclofenac Sodium 1 appl TP QID PRN 04/09/16 [History] Midodrine HCl 2.5 mg PO TID 05/19/16 [History] HYDROcodone/Acet 5/325 mg [[place] 5-325 mg] 1 tab PO Q8H PRN 07/14/16 [History] Pantoprazole Sodium [Protonix] 40 mg PO DAILY 07/14/16 [History] Folic Acid 1 mg PO DAILY #30 tablet 07/27/16 [Rx] FLUoxetine HCl [PROzac] 20 mg PO DAILY 09/09/16 [History] Sucralfate [Carafate] 1 gm PO BID 09/09/16 [History] Allergies No Known Allergies Allergy (Verified 09/09/16 11:41) Review of Systems Constitutional: as per HPI Nose, mouth and throat: no dizziness, no headache(s) Cardiovascular: as per HPI, dyspnea on exertion Respiratory: as per HPI, dyspnea on exertion Gastrointestinal: abdominal pain, bloating, melena Menstruation: as per HPI Musculoskeletal: as per HPI Integumentary: no hirsutism, no striae Neurological: as per HPI Psychiatric: no depression, no difficulty concentrating Endocrine: as per HPI Exam - Vital Signs Vital signs: Initial Vital Signs Temp Pulse Resp BP Pulse Ox 98.2 F 77 20 121/65 94 09/09/16 11:41 09/09/16 11:41 09/09/16 11:41 09/09/16 11:41 09/09/16 11:41 Vital Signs - Last 8 Hours Temp Pulse Resp BP Pulse Ox 09/10/16 05:36 98.4 F 72 16 141/50 96 09/10/16 00:21 97.8 F 62 15 154/65 99 Intake and Output 09/09/16 09/10/16 09/10/16 23:59 07:59 15:59 Intake Total 450 / 450 Balance 450 / 450 Intake: Blood Product 450 / 450 Rbcs Leuko Poor As-1 350 / 350 Unit [id number] Rbcs Leuko Poor As-1 100 / 100 Unit [id number] Other: Stool Size Copious Stool Consistency formed # Bowel Movements 1 Blood Glucose* 118 - General Appearance Exam: Patient is alert and oriented. She is in no acute distress. Neck supple. Lungs breath sounds. Heart regular rhythm with a 2/6 talk ejection murmur. Abdomen is distended from ascites. There is a large ventral hernia. There is some mild abdominal tenderness. There is no guarding or rigidity. There is no lower extremity swelling. Results - Lab Results 09/10/16 04:14 09/10/16 04:14 Most recent lab results Calcium 8.4 mg/dL (8.6-10.8) L 09/10/16 04:14 Magnesium 2.8 mg/dL (1.6-2.6) H 09/10/16 04:14 Consult Discharge Plan - Plan Referrals: Travis Deng Jr, MD [Primary Care Provider] -
[2016-09-10] MEDS: Lactulose Oral Soln 20 GM/30 ML UDC PO SCH ×2 (10:06→21:11)
[2016-09-10] MEDS: Pantoprazole 40 MG VIAL IVP SCH ×2 (10:06→21:12)
[2016-09-10] MEDS: 0.9 % Sodium Chloride 1,000 ML IVC SCH (10:09)
--- NOTE | 2016-09-10 10:57 | Internal Med Progress Note ---
Date of Encounter: 09/10/16 Time of Encounter: 10:57 - Assessment and plan (1) Acute blood loss anemia Current Visit: No Status: Acute Assessment and plan: History of grade 2 esophageal varices and reports of having dark stools prior to hospitalization s/p PRBC transfusion (09/09/16) GI consultation appreciated, patient scheduled EGD at this time will keep NPO except meds until GI evaluation no acute bleeding reported since hospitalization will closely monitor H&H and transfuse as needed (2) GI bleed Current Visit: Yes Status: Acute Assessment and plan: as listed above Qualifiers: GI bleed type/associated pathology: melena Qualified Code(s): K92.1 - Melena (3) Acute kidney injury superimposed on chronic kidney disease Current Visit: No Status: Acute Assessment and plan: Nephrology consultation appreciated SAUL likely secondary to acute blood loss anemia will hold nephrotoxic agents will continue to monitor (4) Cirrhosis Current Visit: No Status: Chronic Assessment and plan: continue home medications Qualifiers: Hepatic cirrhosis type: alcoholic cirrhosis Ascites presence: with ascites Qualified Code(s): K70.31 - Alcoholic cirrhosis of liver with ascites (5) COPD (chronic obstructive pulmonary disease) Current Visit: No Status: Chronic Assessment and plan: not in acute exacerbation will continue home medications O2 supplementation and bronchodilator support Qualifiers: COPD type: chronic bronchitis Chronic bronchitis type: simple Qualified Code(s): J41.0 - Simple chronic bronchitis (6) Hyperkalemia Current Visit: No Status: Acute Assessment and plan: No EKG changes noted Kayxelate ordered by nephrology will closely monitor electrolytes (7) Insulin dependent diabetes mellitus Current Visit: No Status: Chronic Assessment and plan: continue home insulin and added ss insulin algorithm as needed monitor fingerstick glucose and blood glucose (8) Thrombocytopenia Current Visit: No Status: Chronic Assessment and plan: secondary to history of cirrhosis will closely monitor (9) DVT prophylaxis Current Visit: No Status: Acute Assessment and plan: SCD - Subjective Interval history: Patient seen and examined with family present at bedside. Pt is currently AAO x 3 and at baseline mental status as per family. She states she felt fine at home prior to her arrival to the hospital, and was only brought to the ER because her doctor asked her to go. Denies any discomfort at this time. - Constitutional Vitals: Temp Pulse Resp BP Pulse Ox 98.4 F 72 16 141/50 99 07/27/17 05:36 09/10/16 05:36 09/10/16 05:36 09/10/16 05:36 09/10/16 10:20 General appearance: Present: cooperative, A&O X 3, pleasant, no acute distress, answers questions appropriately - Head Head exam: Present: atraumatic, normocephalic - Eye Eye exam: Present: conjuntiva pink, sclera anicteric - Respiratory Respiratory exam: Present: CTAB. Absent: respiratory distress, wheezes - Cardiovascular Cardiovascular exam: Present: RRR, +S1, +S2. Absent: diastolic murmur, gallop, rubs, systolic murmur Additional comments: right chest wall mediport - GI/Abdominal GI/Abdominal exam: Present: normal bowel sounds, soft, no peritoneal signs. Absent: distended, tenderness - Extremities Exam Extremities exam: Present: warm, radial pulses palpable and symetrical. Absent : calf tenderness, cyanotic, pedal edema - Neurological Exam Neurological exam: Present: alert, oriented X3 - Psychiatric Psychiatric exam: Present: normal affect, normal mood Internal Medicine: Result - Labs CBC & Chem 7: 09/10/16 04:14 09/10/16 04:14 Labs: Short CBC 09/10/16 Range/Units 04:14 WBC 2.7 L (4.3-11.1) K/mcL Hgb 7.9 L D (11.5-15.4) g/dL Hct 25.2 L (35.3-44.9) % Plt Count 40 L (140-400) K/mcL Neutrophils # 1.8 (1.6-8.9) K/mcL BMP 09/10/16 04:14 Sodium 140 Potassium 6.0 H Chloride 114 H Carbon Dioxide 23 BUN 52 H Creatinine 2.73 H Glucose 124 H Calcium 8.4 L Consult Discharge Plan - Plan Referrals: Travis Deng Jr, MD [Primary Care Provider] -
[2016-09-10] MEDS ORDERED: Ipratropium/Albuterol Neb 3 ML IH PRN (11:03)
[2016-09-10] MEDS ORDERED: Ondansetron ODT 4 MG TAB.RAPDIS SL PRN (11:03)
[2016-09-10] MEDS ORDERED: *HR* HYDROcodone/Acet 5/325 mg TABLET PO PRN (11:03)
--- NOTE | 2016-09-10 12:15 | Anesthesia Evaluation PreOp ---
Date of Encounter: 09/10/16 Time of Encounter: 12:13 - Past History Planned Operation: EGD re: anemia/melena Cardiac History: HTN, Hyperlipidemia Pulmonary History: COPD (Home O2 dependent. 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 Dementia. Anxiety/Depression maintained on Prozac) Other Medical History: Hepatic (Chronic Liver Dz w/ELLIOTT, Cirrhosis. Recent paracentesis [removed 4-1/2 L fluid]), Renal (Diabetic Nephropathy. Stage 3 CKD) , Thyroid (maintained on Synthroid), GERD (maintained on Ranitidine, Protonix, Carafate), Other (+ Hx of Esophageal Varices. Pancytopenia (re:ELLIOTT)) Anesthesia History: No Prior Anesthetic Complications, Past Anesthesia (Hernia Repair, Esophageal varices banding) Alcohol Use: none Drug use: none Medications and Allergies Cholecalciferol (Vitamin D3) [Vitamin D3] 50,000 unit PO WESA 11/02/14 [History] Magnesium Oxide [Magnesium] 400 mg PO BID 11/02/14 [History] Aspirin 81 mg PO DAILY 30 Days 11/08/14 [Rx] Ipratropium/Albuterol Neb [Duoneb] 3 ml IH Q4HR PRN 04/26/15 [History] Rifaximin [Xifaxan] 550 mg PO BID #60 tablet 05/01/15 [Rx] Cyanocobalamin (Vitamin B-12) [Vitamin B12] 1,000 mcg PO BID 09/03/15 [History] Zinc Sulfate 220 mg PO BID 09/03/15 [History] Insulin DETEMIR [Levemir Flextouch] 16 unit SQ BID 10/07/15 [History] Lactulose 15 ml PO TID PRN 10/07/15 [History] Levothyroxine [Synthroid] 100 mcg PO QAM 10/07/15 [History] Oxygen 2 l NS AD 12/22/15 [History] Ondansetron ODT [Zofran ODT] 4 mg SL TID PRN 04/02/16 [History] raNITIdine HCl [Ranitidine HCl] 150 mg PO BID 04/02/16 [History] Diclofenac Sodium 1 appl TP QID PRN 04/09/16 [History] Midodrine HCl 2.5 mg PO TID 05/19/16 [History] HYDROcodone/Acet 5/325 mg [[place] 5-325 mg] 1 tab PO Q8H PRN 07/14/16 [History] Pantoprazole Sodium [Protonix] 40 mg PO DAILY 07/14/16 [History] Folic Acid 1 mg PO DAILY #30 tablet 07/27/16 [Rx] FLUoxetine HCl [PROzac] 20 mg PO DAILY 09/09/16 [History] Sucralfate [Carafate] 1 gm PO BID 09/09/16 [History] Allergies No Known Allergies Allergy (Verified 09/09/16 11:41) - Meds/Allergy Pre-op Review Medications Reviewed: Yes Allergies Reviewed: Yes Beta Blockers on Current Med List: No Anesthesia Results - Labs 09/10/16 04:14 09/10/16 04:14 Laboratory Results Laboratory Tests 12/03/15 07/15/16 08/05/16 15:41 04:05 03:35 PT INR APTT 32.3 Est Mean Plasma Glucose 151 Hemoglobin A1c 6.9 H Calcium Phosphorus 4.9 H Magnesium 09/08/16 09/10/16 10:10 04:14 PT 13.5 H INR 1.2 APTT Est Mean Plasma Glucose Hemoglobin A1c Calcium 8.4 L Phosphorus Magnesium 2.8 H - Imaging EKG: image reviewed (80bpm SR, marked LAD, non-specific T-wave abnormality) Anesthesia Exam Vital Signs Temp Pulse Resp BP Pulse Ox 09/10/16 11:08 98 F 66 18 160/61 99 09/10/16 10:20 99 09/10/16 10:00 97.8 F 65 16 149/55 100 09/10/16 05:36 98.4 F 72 16 141/50 96 09/10/16 00:21 97.8 F 62 15 154/65 99 09/09/16 20:54 98 F 60 16 136/53 100 09/09/16 20:30 100 09/09/16 20:11 98.0 F 60 16 136/53 100 09/09/16 18:16 98.5 F 71 16 132/51 98 09/09/16 18:02 97.8 F 61 16 150/62 99 09/09/16 16:22 97.8 F 64 16 141/45 98 09/09/16 15:25 98.2 F 71 18 133/48 100 09/09/16 14:33 16 133/51 09/09/16 14:09 98.3 F 74 18 122/47 98 09/09/16 13:58 98.3 F 74 16 136/52 Intake and Output 09/09/16 09/10/16 09/10/16 23:59 07:59 15:59 Intake Total 450 / 450 1000 / 1000 Balance 450 / 450 1000 / 1000 Intake: IV Fluids 1000 / 1000 0.9 % Sodium Chloride 1, 1000 / 1000 000 ML @ 75 mls/hr IVC . [id number] [facility] Rx#: [id number] Blood Product 450 / 450 Rbcs Leuko Poor As-1 350 / 350 Unit [id number] Rbcs Leuko Poor As-1 100 / 100 Unit [id number] Other: Stool Size Copious Stool Consistency formed # Bowel Movements 1 Blood Glucose* 118 114 Height: 5'0 Weight: 151# BMI = 29.5 NPO (# of Hours): MNoc - HEENT Pupil (Motor): Pupils equal, EOMI Mallampati: II Teeth: Edentulous Oral Opening: Greater than 3 - NEONATAL NURSE PRACTITIONER LOC: Oriented, Confused NEONATAL NURSE PRACTITIONER Motor: Normal RUE, Normal LUE, Normal RLE, Normal LLE, Normal Face NEONATAL NURSE PRACTITIONER Sensory: Normal: RUE, LUE, RLE, LLE, Face - Cardiac Rhythm: Regular Murmur: Systolic - Pulmonary Breath Sounds: bilateral Clear Respiratory Effort: Symmetrical Anesthesia Assess/Plan Modified [place] Scale for Level of Consciousness: Cooperative, oriented, and tranquil Anesthetic Plan: MAC Monitoring Plan: Standard Monitors Recovery Plan: Other Anes Supervising Prov Stmt: Pt seen\evaluated, R&B Discussed, questions answered and consent obtained. Fang Espana MD
[2016-09-10 13:43] LABS: INR 1.3; Prothrombin Time 14.1 Seconds (9.4-12.1)
--- NOTE | 2016-09-10 13:57 | Electrocardiograph Report ---
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
--- NOTE | 2016-09-10 14:47 | Electrocardiograph Report ---
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
[2016-09-10] MEDS ORDERED: Octreotide 50 MCG/ML SYRINGE IVP ONE (15:08)
[2016-09-10] MEDS ORDERED: 0.9 % Sodium Chloride 250 ML ONE (17:09)
--- NOTE | 2016-09-10 18:33 | Event Note ---
Date of Encounter: 09/10/16 Time of Encounter: 18:00 An 76-year-old female with the Snowden cirrhosis very well known to GI service. Admitted this time because of his anemia. Patient does has refractory ascites for which she is getting regular taps Along with that she has chronic kidney disease. She does has a history of portal gastropathy and enteropathy and she had many few spots one in the duodenum and one in the stomach on today's exam and they were cauterized. Patient does has severe thrombocytopenia along with mild coagulopathy. Colonoscopy is very high risk and do not think that will add to her management. Recommendation: Transfuse as needed. Platelet transfusion to help with the bleeding may benefit from long-term octreotide. Long-term prognosis poor.
[2016-09-10] MEDS: Octreotide 400 MCG in 0.9 % Sodium Chloride 100 ML IVC SCH (18:41)
[2016-09-10] MEDS: Sucralfate 1 GM TABLET PO SCH ×2 (18:42→18:52)
[2016-09-10] MEDS ORDERED: Magnesium Oxide 400 MG TABLET PO SCH (21:00)
[2016-09-10] MEDS ORDERED: INSULIN DETEMIR 16 UNIT SQ SCH (21:00)
[2016-09-10] MEDS: Insulin DETEMIR 100 UNIT/ML X5UNITS SQ SCH (21:12)
[2016-09-10] MEDS: Cyanocobalamin (B-12) 1,000 MCG TABLET PO SCH (21:19)
[2016-09-10 21:38] LABS: Hematocrit 26.5 % (35.3-44.9); Hemoglobin 8.2 g/dL (11.5-15.4)
[2016-09-11] MEDS: Insulin LISPRO 300 UNITS/3 ML VIAL SQ SCH ×5 (00:57→20:31)
[2016-09-11 06:27] LABS: Basophils % 0.6 %; Hemoglobin 7.8 g/dL (11.5-15.4)
[2016-09-11 06:28] LABS: Eosinophils # 0.1 K/mcL (0.0-0.6); Eosinophils % 2.6 %; Hematocrit 25.3 % (35.3-44.9); Immature Granulocytes % 1.3 % (0-4); Immature Platelets 6.9 % (1.1-6.1); Lymphocytes # 0.4 K/mcL (0.6-4.6); Lymphocytes % 11.4 %; Mean Corpuscular HGB Conc 30.8 g/dL (31.6-35.5); Mean Corpuscular Hemoglobin 30.8 pg (28.0-33.3); Mean Platelet Volume 11.5 fL (9.4-12.4); Monocytes # 0.3 K/mcL (0.0-1.3); Monocytes % 10.7 %; Neutrophils # 2.3 K/mcL (1.6-8.9); Red Blood Count 2.53 M/mcL (3.82-4.97); Red Cell Distribution Width 19.7 % (11.5-14.5); Segmented Neutrophils % 73.4 %
[2016-09-11 06:29] LABS: Platelet Count 40 K/mcL (140-400)
[2016-09-11 06:40] LABS: Magnesium 2.6 mg/dL (1.6-2.6); Phosphorous 4.7 mg/dL (2.3-4.7)
[2016-09-11] MEDS: Octreotide 400 MCG in 0.9 % Sodium Chloride 100 ML IVC SCH ×2 (07:30→23:45)
[2016-09-11] MEDS: Folic Acid 1 MG TABLET PO SCH (08:32)
[2016-09-11] MEDS: Cyanocobalamin (B-12) 1,000 MCG TABLET PO SCH ×2 (08:32→20:32)
[2016-09-11] MEDS: FLUoxetine 20 MG CAPSULE PO SCH (08:32)
[2016-09-11] MEDS: Sucralfate 1 GM TABLET PO SCH ×2 (08:32→15:51)
[2016-09-11] MEDS: Lactulose Oral Soln 20 GM/30 ML UDC PO SCH ×2 (08:33→20:39)
[2016-09-11] MEDS: Pantoprazole 40 MG VIAL IVP SCH ×2 (08:37→20:35)
[2016-09-11 09:39] LABS: Albumin 3.3 g/dL (3.5-5.0); Albumin/Globulin Ratio 1.2 (1.1-2.2); Calcium 8.4 mg/dL (8.6-10.8); Globulin 2.8 g/dL (2.4-3.5); Potassium 5.7 mEq/L (3.5-4.5); Total Protein 6.1 g/dL (6.0-8.3)
[2016-09-11 09:50] LABS: Bilirubin,Total 1.5 mg/dL (0.2-1.2)
--- NOTE | 2016-09-11 10:21 | Nephrology Progress Note ---
Date of Encounter: 09/11/16 Time of Encounter: 10:00 - Assessment and Plan (1) Acute kidney insufficiency Current Visit: No Status: Acute SAUL superimposed on stage IV CKD, related to acute blood loss and possibly contributing recent paracentesis. Renal fct at [facility]. K improved 5.7. Subjective Interval history: Laying quietly in bed, states feeling better. No new complaints. Objective - Vital Signs Vital signs: Vital Signs Temp Pulse Resp BP Pulse Ox 09/11/16 08:49 98 09/11/16 07:18 98.5 F 77 16 153/58 98 09/11/16 05:23 98.0 F 72 14 158/61 100 09/10/16 22:13 100 09/10/16 21:00 98.1 F 73 18 152/60 100 09/10/16 17:34 98.0 F 67 16 152/60 100 09/10/16 17:23 97.8 F 60 10 152/58 100 09/10/16 17:19 97.9 F 63 10 153/59 09/10/16 15:35 97.8 F 65 17 171/64 100 09/10/16 13:04 97.9 F 75 16 160/75 92 09/10/16 11:08 98 F 66 18 160/61 99 09/10/16 10:20 99 Intake and Output 09/10/16 09/11/16 09/11/16 23:59 07:59 15:59 Intake Total 233 / 233 104 / 104 Balance 233 / 233 104 / 104 Intake: IV Fluids 104 / 104 SandoSTATIN 400 MCG In 0. 104 / 104 9 % Sodium Chloride 100 ML @ 25 MCG/HR 6.5 mls/hr IVC .Q16H [facility] Rx#: [id number] Blood Product 233 / 233 Platelet Pheresis Lp Irr 233 / 233 1st Unit [id number] Other: Stool Size Small Stool Consistency loose Stool Color Black # Voids 1 Blood Glucose* 122 95 - General Appearance General appearance: Present: well-developed, well-nourished, appears started age EENT: Present: mucous membranes moist Neck: Present: no JVD Respiratory: Present: clear Cardiology: Present: no edema, regular rate, regular rhythm Gastrointestinal: Present: normoactive bowel sounds, no tenderness Integumentary: Present: warm and dry Neurologic: Present: alert and oriented x3 Psychiatric: Present: mood/affect appropriate, cooperative - Lab 09/11/16 05:21 09/11/16 05:21 Most recent lab results Calcium 8.4 mg/dL (8.6-10.8) L 09/11/16 05:21 Phosphorus 4.7 mg/dL (2.3-4.7) 09/11/16 05:21 Magnesium 2.6 mg/dL (1.6-2.6) 09/11/16 05:21 Consult Discharge Plan - Plan Referrals: Travis Deng Jr, MD [Primary Care Provider] -
--- NOTE | 2016-09-11 11:31 | Internal Med Progress Note ---
Date of Encounter: 09/11/16 Time of Encounter: 11:27 - Assessment and plan (1) Acute blood loss anemia Current Visit: No Status: Acute Assessment and plan: History of grade 2 esophageal varices and reports of having dark stools prior to hospitalization s/p PRBC transfusion (09/09/16) GI consultation appreciated, s/p EGD, continue octreotide drip. Will transfuse another unit of platelets. GI follow up requested in regards to continuation of octreotide and diet clear liquid diet at this time, will advance as per GI no acute bleeding reported since hospitalization will closely monitor H&H and transfuse as needed (2) GI bleed Current Visit: Yes Status: Acute Assessment and plan: as listed above Qualifiers: GI bleed type/associated pathology: melena Qualified Code(s): K92.1 - Melena (3) Acute kidney injury superimposed on chronic kidney disease Current Visit: No Status: Acute Assessment and plan: Nephrology consultation appreciated SAUL likely secondary to acute blood loss anemia will hold nephrotoxic agents will continue to monitor (4) Cirrhosis Current Visit: No Status: Chronic Assessment and plan: continue home medications Qualifiers: Hepatic cirrhosis type: alcoholic cirrhosis Ascites presence: with ascites Qualified Code(s): K70.31 - Alcoholic cirrhosis of liver with ascites (5) COPD (chronic obstructive pulmonary disease) Current Visit: No Status: Chronic Assessment and plan: not in acute exacerbation will continue home medications O2 supplementation and bronchodilator support Qualifiers: COPD type: chronic bronchitis Chronic bronchitis type: simple Qualified Code(s): J41.0 - Simple chronic bronchitis (6) Hyperkalemia Current Visit: No Status: Acute Assessment and plan: No EKG changes noted will closely monitor electrolytes nephrology on board (7) Insulin dependent diabetes mellitus Current Visit: No Status: Chronic Assessment and plan: continue home insulin and ss insulin algorithm as needed monitor fingerstick glucose and blood glucose (8) Thrombocytopenia Current Visit: No Status: Chronic Assessment and plan: secondary to liver disease will transfuse another unit platelet today (9) DVT prophylaxis Current Visit: No Status: Acute Assessment and plan: SCD - Subjective Interval history: Patient seen and examined with family present at bedside. Pt is s/p EGD. As per Dr. Styles she has portal gastropathy and had multiple lesions in the duodenum and in the stomach requiring cauterization. Pt received one unit of Platelets yesterday and was started on octreotide drip. Pt is to receive another unit of platelet today and will continue octreotide drip pt encouraged to get out of bed to chair and PT/OT evaluation requested. - Constitutional Vitals: Temp Pulse Resp BP Pulse Ox 97.6 F 68 16 147/62 100 09/11/16 11:21 09/11/16 11:21 09/11/16 11:21 09/11/16 11:21 09/11/16 11:21 General appearance: Present: cooperative, A&O X 3, pleasant, no acute distress, answers questions appropriately - Head Head exam: Present: atraumatic, normocephalic - Eye Eye exam: Present: conjuntiva pink, sclera anicteric - Respiratory Respiratory exam: Present: wheezes (diffuse expiratory wheezing ). Absent: respiratory distress - Cardiovascular Cardiovascular exam: Present: RRR, +S1, +S2. Absent: diastolic murmur, gallop, rubs, systolic murmur - GI/Abdominal GI/Abdominal exam: Present: distended (ascites ), normal bowel sounds, soft, no peritoneal signs. Absent: tenderness - Extremities Exam Extremities exam: Present: warm, radial pulses palpable and symetrical. Absent : calf tenderness, pedal edema - Neurological Exam Neurological exam: Present: alert, oriented X3 - Psychiatric Psychiatric exam: Present: normal affect, normal mood Internal Medicine: Result - Labs CBC & Chem 7: 09/11/16 05:21 09/11/16 05:21 Labs: Short CBC 09/10/16 09/11/16 Range/Units 21:28 05:21 WBC 3.1 L (4.3-11.1) K/mcL Hgb 8.2 L 7.8 L (11.5-15.4) g/dL Hct 26.5 L 25.3 L (35.3-44.9) % Plt Count 40 L (140-400) K/mcL Neutrophils # 2.3 (1.6-8.9) K/mcL BMP 09/11/16 05:21 Sodium 141 Potassium 5.7 H Chloride 114 H Carbon Dioxide 21 BUN 54 H Creatinine 2.59 H Glucose 94 Calcium 8.4 L Liver Function 09/11/16 Range/Units 05:21 Total Bilirubin 1.5 H D (0.2-1.2) mg/dL AST 31 (5-34) Units/L ALT 16 (0-55) Units/L Alkaline Phosphatase 89 (38-126) Units/L Albumin 3.3 L (3.5-5.0) g/dL - ABG Interpretation ABG results: PT/INR, D-dimer PT 14.1 Seconds (9.4-12.1) H 09/10/16 13:25 Consult Discharge Plan - Plan Referrals: Travis Deng Jr, MD [Primary Care Provider] -
[2016-09-11] MEDS ORDERED: 0.9 % Sodium Chloride 1,000 ML ONE (12:23)
[2016-09-11] MEDS: Ipratropium/Albuterol Neb 3 ML IH SCH ×3 (13:43→22:29)
[2016-09-11] MEDS ORDERED: *HR* Propofol 200 MG/20 ML VIAL IVP ONE (14:11)
[2016-09-11] MEDS ORDERED: *HR* OxyCODONE/APAP 5/325 TABLET PO ONE (15:35)
[2016-09-11] MEDS ORDERED: Ondansetron 4 MG/2 ML VIAL IVP PRN (17:50)
[2016-09-11] MEDS ORDERED: *HR* Promethazine 25 MG/ML VIAL IVP PRN (17:53)
[2016-09-11] MEDS: Insulin DETEMIR 100 UNIT/ML X5UNITS SQ SCH (20:39)
[2016-09-12 04:11] LABS: Hemoglobin 7.5 g/dL (11.5-15.4); Mean Corpuscular Volume 101.7 fL (83.0-100.0)
[2016-09-12 04:12] LABS: Basophils % 0.7 %; Eosinophils # 0.1 K/mcL (0.0-0.6); Eosinophils % 2.3 %; Hematocrit 24.6 % (35.3-44.9); Immature Granulocytes % 0.3 % (0-4); Lymphocytes # 0.4 K/mcL (0.6-4.6); Lymphocytes % 13.9 %; Mean Corpuscular HGB Conc 30.5 g/dL (31.6-35.5); Mean Platelet Volume 11.9 fL (9.4-12.4); Monocytes # 0.4 K/mcL (0.0-1.3); Monocytes % 12.6 %; Neutrophils # 2.1 K/mcL (1.6-8.9); Red Blood Count 2.42 M/mcL (3.82-4.97); Red Cell Distribution Width 18.8 % (11.5-14.5); Segmented Neutrophils % 70.2 %
[2016-09-12 04:13] LABS: Platelet Count 44 K/mcL (140-400)
[2016-09-12] MEDS: Ipratropium/Albuterol Neb 3 ML IH SCH ×4 (04:18→21:50)
[2016-09-12 05:22] LABS: Calcium 8.3 mg/dL (8.6-10.8); Magnesium 2.5 mg/dL (1.6-2.6); Phosphorous 4.2 mg/dL (2.3-4.7); Potassium 5.4 mEq/L (3.5-4.5)
--- NOTE | 2016-09-12 09:14 | Nephrology Progress Note ---
Date of Encounter: 09/12/16 Time of Encounter: 09:00 - Assessment and Plan (1) Acute kidney insufficiency Current Visit: No Status: Acute SAUL superimposed on stage IV CKD, related to acute blood loss and possibly contributing recent paracentesis. Renal fct at patients baseline, creat 2.45. K improved 5.4. Subjective Interval history: Laying quietly in bed, states feeling better. No new complaints. Objective - Vital Signs Vital signs: Vital Signs Temp Pulse Resp BP Pulse Ox 09/12/16 06:45 98.1 F 76 18 116/45 97 09/12/16 04:18 16 99 09/12/16 03:11 98.5 F 66 18 126/51 98 09/11/16 23:24 98.3 F 67 16 148/57 99 09/11/16 22:31 16 99 09/11/16 19:26 98.4 F 71 16 132/55 96 09/11/16 16:30 16 99 09/11/16 15:46 98.2 F 79 16 172/74 99 09/11/16 15:00 98.7 F 74 16 148/63 98 09/11/16 13:11 98.3 F 69 20 153/62 100 09/11/16 12:56 98 F 69 24 156/65 100 09/11/16 11:21 97.6 F 68 16 147/62 100 Intake and Output 09/11/16 09/12/16 09/12/16 23:59 07:59 15:59 Intake Total 100 / 100 Balance 100 / 100 Intake: IV Fluids 100 / 100 SandoSTATIN 400 MCG In 0. 100 / 100 9 % Sodium Chloride 100 ML @ 25 MCG/HR 6.5 mls/hr IVC .Q16H [facility] Rx#: [id number] Other: Weight 68.577 kg 71.577 kg Blood Glucose* 126 93 Patient Weight 09/12/16 23:59 Weight 71.577 kg - General Appearance General appearance: Present: well-developed, well-nourished, appears started age , chronically ill, frail EENT: Present: mucous membranes moist Neck: Present: no JVD Respiratory: Present: clear Cardiology: Present: no edema, regular rate, regular rhythm Gastrointestinal: Present: normoactive bowel sounds, no tenderness Integumentary: Present: warm and dry Neurologic: Present: alert and oriented x3 Psychiatric: Present: mood/affect appropriate, cooperative - Lab 09/12/16 04:00 09/12/16 04:00 Most recent lab results Calcium 8.3 mg/dL (8.6-10.8) L 09/12/16 04:00 Phosphorus 4.2 mg/dL (2.3-4.7) 09/12/16 04:00 Magnesium 2.5 mg/dL (1.6-2.6) 09/12/16 04:00 - VTE Documentation of Mechanical Device: Intermittent pneumatic compression device Consult Discharge Plan - Plan Referrals: Travis Deng Jr, MD [Primary Care Provider] -
[2016-09-12] MEDS: Insulin LISPRO 300 UNITS/3 ML VIAL SQ SCH ×4 (09:50→21:12)
[2016-09-12] MEDS: Cyanocobalamin (B-12) 1,000 MCG TABLET PO SCH ×2 (09:56→20:34)
[2016-09-12] MEDS: FLUoxetine 20 MG CAPSULE PO SCH (09:56)
[2016-09-12] MEDS: Sucralfate 1 GM TABLET PO SCH ×2 (09:56→17:30)
[2016-09-12] MEDS: Pantoprazole 40 MG VIAL IVP SCH ×2 (09:56→21:09)
[2016-09-12] MEDS: Lactulose Oral Soln 20 GM/30 ML UDC PO SCH ×2 (09:56→20:31)
[2016-09-12] MEDS: Folic Acid 1 MG TABLET PO SCH (09:56)
--- NOTE | 2016-09-12 10:56 | Internal Med Progress Note ---
Date of Encounter: 09/12/16 Time of Encounter: 10:53 - Assessment and plan (1) Acute blood loss anemia Current Visit: No Status: Acute Assessment and plan: History of grade 2 esophageal varices and reports of having dark stools prior to hospitalization s/p PRBC transfusion (09/09/16) GI consultation appreciated, s/p EGD, continue octreotide drip. Will transfuse another unit of platelets. GI follow up requested in regards to continuation of octreotide and diet Will continue octreotide gtt x 3 days at this time clear liquid diet at this time, will advance as per GI no acute bleeding reported since hospitalization will closely monitor H&H and transfuse as needed (if hgb<7) (2) GI bleed Current Visit: Yes Status: Acute Assessment and plan: as listed above Qualifiers: GI bleed type/associated pathology: melena Qualified Code(s): K92.1 - Melena (3) Acute kidney injury superimposed on chronic kidney disease Current Visit: No Status: Acute Assessment and plan: Nephrology consultation appreciated SAUL likely secondary to acute blood loss anemia will hold nephrotoxic agents will continue to monitor (4) Cirrhosis Current Visit: No Status: Chronic Assessment and plan: continue home medications Qualifiers: Hepatic cirrhosis type: alcoholic cirrhosis Ascites presence: with ascites Qualified Code(s): K70.31 - Alcoholic cirrhosis of liver with ascites (5) COPD (chronic obstructive pulmonary disease) Current Visit: No Status: Chronic Assessment and plan: not in acute exacerbation will continue home medications O2 supplementation and bronchodilator support Qualifiers: COPD type: chronic bronchitis Chronic bronchitis type: simple Qualified Code(s): J41.0 - Simple chronic bronchitis (6) Hyperkalemia Current Visit: No Status: Acute Assessment and plan: No EKG changes noted will closely monitor electrolytes nephrology on board (7) Insulin dependent diabetes mellitus Current Visit: No Status: Chronic Assessment and plan: continue home insulin and ss insulin algorithm as needed monitor fingerstick glucose and blood glucose (8) Thrombocytopenia Current Visit: No Status: Chronic Assessment and plan: secondary to liver disease will transfuse another unit platelet today (9) DVT prophylaxis Current Visit: No Status: Acute Assessment and plan: SCD - Subjective Interval history: Patient seen and examined with family present at bedside. Pt is s/p EGD. As per Dr. Styles she has portal gastropathy and had multiple lesions in the duodenum and in the stomach requiring cauterization. Pt received one unit of Platelets yesterday(09/11/16) and was continued on octreotide drip. Pt is to receive another unit of platelet today(09/12/16)and will continue octreotide drip x 3 days pt encouraged to get out of bed to chair and PT/OT evaluation requested. Pt was reported to have severe nausea and elevated BP yesterday evening. She received Zofran and Hydralazine which resolved her symptoms. Denies any headache , nausea or any discomfort at this time. - Constitutional Vitals: Temp Pulse Resp BP Pulse Ox 98.1 F 76 18 116/45 97 09/12/16 06:45 09/12/16 06:45 09/12/16 09:57 09/12/16 06:45 09/12/16 09:57 General appearance: Present: cooperative, A&O X 3, pleasant, no acute distress, answers questions appropriately - Head Head exam: Present: atraumatic, normocephalic - Eye Eye exam: Present: conjuntiva pink, sclera anicteric - Respiratory Respiratory exam: Absent: respiratory distress, wheezes - Cardiovascular Cardiovascular exam: Present: RRR, +S1, +S2. Absent: diastolic murmur, gallop, rubs, systolic murmur - GI/Abdominal GI/Abdominal exam: Present: normal bowel sounds. Absent: tenderness - Extremities Exam Extremities exam: Present: warm, radial pulses palpable and symetrical. Absent : calf tenderness - Neurological Exam Neurological exam: Present: alert, oriented X3 - Psychiatric Psychiatric exam: Present: normal affect, normal mood Internal Medicine: Result - Labs CBC & Chem 7: 09/12/16 04:00 09/12/16 04:00 Labs: Short CBC 09/12/16 Range/Units 04:00 WBC 3.0 L (4.3-11.1) K/mcL Hgb 7.5 L (11.5-15.4) g/dL Hct 24.6 L (35.3-44.9) % Plt Count 44 L (140-400) K/mcL Neutrophils # 2.1 (1.6-8.9) K/mcL BMP 09/12/16 04:00 Sodium 141 Potassium 5.4 H Chloride 115 H Carbon Dioxide 20 BUN 51 H Creatinine 2.45 H Glucose 102 H Calcium 8.3 L - ABG Interpretation ABG results: PT/INR, D-dimer PT 14.1 Seconds (9.4-12.1) H 09/10/16 13:25 - VTE Documentation of Mechanical Device: Intermittent pneumatic compression device Consult Discharge Plan - Plan Referrals: Travis Deng Jr, MD [Primary Care Provider] -
[2016-09-12] MEDS ORDERED: 0.9 % Sodium Chloride 250 ML ONE (13:14)
[2016-09-12] MEDS: Octreotide 400 MCG in 0.9 % Sodium Chloride 100 ML IVC SCH (17:30)
[2016-09-12] MEDS: Insulin DETEMIR 100 UNIT/ML X5UNITS SQ SCH (21:12)
[2016-09-13] MEDS: Ipratropium/Albuterol Neb 3 ML IH SCH ×4 (03:54→22:16)
[2016-09-13 04:45] LABS: Eosinophils # 0.1 K/mcL (0.0-0.6); Eosinophils % 4.2 %; Hematocrit 23.3 % (35.3-44.9); Hemoglobin 7.2 g/dL (11.5-15.4); Immature Granulocytes % 0.7 % (0-4); Lymphocytes # 0.4 K/mcL (0.6-4.6); Lymphocytes % 12.1 %; Mean Corpuscular HGB Conc 30.9 g/dL (31.6-35.5); Mean Corpuscular Hemoglobin 31.6 pg (28.0-33.3); Mean Corpuscular Volume 102.2 fL (83.0-100.0); Mean Platelet Volume 11.7 fL (9.4-12.4); Monocytes # 0.5 K/mcL (0.0-1.3); Monocytes % 16.3 %; Neutrophils # 1.9 K/mcL (1.6-8.9); Red Blood Count 2.28 M/mcL (3.82-4.97); Red Cell Distribution Width 18.4 % (11.5-14.5); Segmented Neutrophils % 66.7 %
[2016-09-13 04:46] LABS: Platelet Count 38 K/mcL (140-400)
[2016-09-13 05:01] LABS: Calcium 8.2 mg/dL (8.6-10.8); Magnesium 2.2 mg/dL (1.6-2.6); Phosphorous 3.9 mg/dL (2.3-4.7); Potassium 4.5 mEq/L (3.5-4.5)
[2016-09-13 05:02] LABS: Anisocytosis 1+ (Not Present); Platelet Estimate Marked Decrease (Normal)
--- NOTE | 2016-09-13 09:22 | Nephrology Progress Note ---
Date of Encounter: 09/13/16 Time of Encounter: 08:55 - Assessment and Plan (1) Acute kidney insufficiency Current Visit: No Status: Acute SAUL superimposed on stage IV CKD, related to acute blood loss and possibly contributing recent paracentesis. Renal fct at patients baseline, creat 2.05. No documented urine output, spoke to staff to do I/O. Subjective Interval history: Laying quietly in bed, states feeling better. No new complaints. Son at bedside. No documented urine output, patient states is voiding. Objective - Vital Signs Vital signs: Vital Signs Temp Pulse Resp BP Pulse Ox 09/13/16 08:30 98.2 F 79 16 135/49 94 09/13/16 03:54 16 100 09/13/16 03:12 98.7 F 86 18 143/57 99 09/13/16 01:36 98.5 F 76 10 148/61 100 09/13/16 00:00 98.1 F 82 18 147/65 100 09/12/16 22:46 98.5 F 78 12 142/59 100 09/12/16 22:31 98.3 F 74 14 153/64 100 09/12/16 21:51 18 100 09/12/16 18:39 97.9 F 81 18 155/60 95 09/12/16 16:58 18 99 09/12/16 16:26 98.2 F 85 18 142/54 99 09/12/16 14:56 98.3 F 74 14 153/64 100 09/12/16 14:54 98.1 F 82 18 134/55 100 09/12/16 13:57 98.2 F 67 18 136/56 97 09/12/16 13:42 98.0 F 70 18 149/58 99 09/12/16 12:32 98.0 F 77 18 157/59 100 09/12/16 09:57 18 97 Intake and Output 09/12/16 09/13/16 09/13/16 23:59 07:59 15:59 Intake Total 240 / 240 537 / 537 Output Total 0 / 0 0 / 0 Balance 240 / 240 537 / 537 Intake: Oral 240 / 240 300 / 300 Blood Product 0 / 0 237 / 237 Platelet Pheresis Lp Irr 0 / 0 237 / 237 2nd Unit [id number] Output: Urine 0 / 0 0 / 0 Other: Meal Dinner Percent of Meal Consumed 100% Stool Size Small Stool Consistency loose # Bowel Movements 1 Weight 75.5 kg Blood Glucose* 176 51 Patient Weight 09/13/16 23:59 Weight 75.5 kg - General Appearance General appearance: Present: appears started age, frail EENT: Present: mucous membranes moist Neck: Present: no JVD Respiratory: Present: clear Cardiology: Present: no edema, regular rate, regular rhythm Gastrointestinal: Present: normoactive bowel sounds, no tenderness Integumentary: Present: warm and dry Neurologic: Present: alert and oriented x3 Psychiatric: Present: mood/affect appropriate, cooperative - Lab 09/13/16 04:12 09/13/16 04:12 Most recent lab results Calcium 8.2 mg/dL (8.6-10.8) L 09/13/16 04:12 Phosphorus 3.9 mg/dL (2.3-4.7) 09/13/16 04:12 Magnesium 2.2 mg/dL (1.6-2.6) 09/13/16 04:12 - VTE Documentation of Mechanical Device: Intermittent pneumatic compression device Consult Discharge Plan - Plan Referrals: Travis Deng Jr, MD [Primary Care Provider] -
[2016-09-13] MEDS: Lactulose Oral Soln 20 GM/30 ML UDC PO SCH ×3 (09:32→20:47)
[2016-09-13] MEDS: Folic Acid 1 MG TABLET PO SCH (09:32)
[2016-09-13] MEDS: Sucralfate 1 GM TABLET PO SCH ×2 (09:32→17:10)
[2016-09-13] MEDS: FLUoxetine 20 MG CAPSULE PO SCH (09:32)
[2016-09-13] MEDS: Insulin LISPRO 300 UNITS/3 ML VIAL SQ SCH ×4 (09:33→20:47)
[2016-09-13] MEDS: Pantoprazole 40 MG VIAL IVP SCH ×2 (09:33→20:47)
[2016-09-13] MEDS: Cyanocobalamin (B-12) 1,000 MCG TABLET PO SCH ×2 (09:35→20:48)
[2016-09-13] MEDS: Octreotide 400 MCG in 0.9 % Sodium Chloride 100 ML IVC SCH (10:37)
--- NOTE | 2016-09-13 12:40 | Internal Med Progress Note ---
Date of Encounter: 09/13/16 Time of Encounter: 12:37 - Assessment and plan (1) Acute blood loss anemia Current Visit: No Status: Acute Assessment and plan: History of grade 2 esophageal varices and reports of having dark stools prior to hospitalization s/p PRBC transfusion (09/09/16) GI consultation appreciated, s/p EGD, continue octreotide drip. Will continue octreotide gtt x 3 days at this time clear liquid diet at this time, will advance as per GI no acute bleeding reported since hospitalization Will transfuse two units PRBC today and closely monitor (2) GI bleed Current Visit: Yes Status: Acute Assessment and plan: as listed above Qualifiers: GI bleed type/associated pathology: melena Qualified Code(s): K92.1 - Melena (3) Acute kidney injury superimposed on chronic kidney disease Current Visit: No Status: Acute Assessment and plan: Nephrology consultation appreciated SAUL likely secondary to acute blood loss anemia will hold nephrotoxic agents will continue to monitor (4) Cirrhosis Current Visit: No Status: Chronic Assessment and plan: continue home medications Qualifiers: Hepatic cirrhosis type: alcoholic cirrhosis Ascites presence: with ascites Qualified Code(s): K70.31 - Alcoholic cirrhosis of liver with ascites (5) COPD (chronic obstructive pulmonary disease) Current Visit: No Status: Chronic Assessment and plan: not in acute exacerbation will continue home medications O2 supplementation and bronchodilator support Qualifiers: COPD type: chronic bronchitis Chronic bronchitis type: simple Qualified Code(s): J41.0 - Simple chronic bronchitis (6) Hyperkalemia Current Visit: No Status: Resolved (7) Insulin dependent diabetes mellitus Current Visit: No Status: Chronic Assessment and plan: continue home insulin and ss insulin algorithm as needed monitor fingerstick glucose and blood glucose (8) Thrombocytopenia Current Visit: No Status: Chronic Assessment and plan: secondary to liver disease will transfuse another unit platelet today Dr. Townsend (hematology) consultation requested given persistent thrombocytopenia despite Platelet transfusion (9) DVT prophylaxis Current Visit: No Status: Acute Assessment and plan: SCD - Subjective Interval history: Patient seen and examined with family present at bedside. Pt is s/p EGD. As per Dr. Styles she has portal gastropathy and had multiple lesions in the duodenum and in the stomach requiring cauterization. Pt received one unit of Platelets yesterday(09/11/16) and was continued on octreotide drip. Pt is to receive another unit of platelet today(09/12/16)and will continue octreotide drip x 3 days pt encouraged to get out of bed to chair and PT/OT evaluation requested. Resting in bed and denies any discomfort. No overnight issues reported. Noted to have drop in H&H and platelets. Hematology consulted (Dr. Townsend). - Constitutional Vitals: Temp Pulse Resp BP Pulse Ox 98.2 F 74 18 134/69 98 09/13/16 10:56 09/13/16 10:56 09/13/16 11:32 09/13/16 10:56 09/13/16 11:32 General appearance: Present: cooperative, A&O X 3, pleasant, no acute distress, obese, answers questions appropriately - Head Head exam: Present: atraumatic, normocephalic - Eye Eye exam: Present: conjuntiva pink, sclera anicteric - Respiratory Respiratory exam: Absent: respiratory distress, wheezes - Cardiovascular Cardiovascular exam: Present: RRR, +S1, +S2. Absent: diastolic murmur, gallop, rubs, systolic murmur - GI/Abdominal GI/Abdominal exam: Present: distended (ascites), normal bowel sounds, soft. Absent: tenderness - Extremities Exam Extremities exam: Present: warm, radial pulses palpable and symetrical. Absent : calf tenderness, pedal edema - Neurological Exam Neurological exam: Present: alert, oriented X3 - Psychiatric Psychiatric exam: Present: normal affect, normal mood Internal Medicine: Result - Labs CBC & Chem 7: 09/13/16 04:12 09/13/16 04:12 Labs: Short CBC 09/13/16 Range/Units 04:12 WBC 2.9 L (4.3-11.1) K/mcL Hgb 7.2 L (11.5-15.4) g/dL Hct 23.3 L (35.3-44.9) % Plt Count 38 L (140-400) K/mcL Neutrophils # 1.9 (1.6-8.9) K/mcL BMP 09/13/16 04:12 Sodium 140 Potassium 4.5 Chloride 112 H Carbon Dioxide 20 BUN 45 H Creatinine 2.05 H Glucose 72 Calcium 8.2 L - ABG Interpretation ABG results: PT/INR, D-dimer PT 14.1 Seconds (9.4-12.1) H 09/10/16 13:25 - VTE Documentation of Mechanical Device: Intermittent pneumatic compression device Consult Discharge Plan - Plan Referrals: Travis Deng Jr, MD [Primary Care Provider] -
[2016-09-13] MEDS ORDERED: 0.9 % Sodium Chloride 250 ML ONE ×3 (13:40→23:25)
[2016-09-13] MEDS: Insulin DETEMIR 100 UNIT/ML X5UNITS SQ SCH (20:48)
[2016-09-14] MEDS: Octreotide 400 MCG in 0.9 % Sodium Chloride 100 ML IVC SCH (00:45)
[2016-09-14] MEDS: Ipratropium/Albuterol Neb 3 ML IH SCH ×4 (04:39→22:33)
[2016-09-14 06:34] LABS: Basophils % 0.7 %; Calcium 8.4 mg/dL (8.6-10.8); Magnesium 1.9 mg/dL (1.6-2.6); Phosphorous 3.4 mg/dL (2.3-4.7); Red Cell Distribution Width 19.9 % (11.5-14.5)
[2016-09-14 06:35] LABS: Eosinophils # 0.2 K/mcL (0.0-0.6); Eosinophils % 6.9 %; Hematocrit 28.8 % (35.3-44.9); Hemoglobin 9.2 g/dL (11.5-15.4); Immature Granulocytes % 0.4 % (0-4); Immature Platelets 7.7 % (1.1-6.1); Lymphocytes # 0.4 K/mcL (0.6-4.6); Lymphocytes % 15.2 %; Mean Corpuscular HGB Conc 31.9 g/dL (31.6-35.5); Mean Corpuscular Hemoglobin 30.7 pg (28.0-33.3); Mean Platelet Volume 11.9 fL (9.4-12.4); Monocytes # 0.5 K/mcL (0.0-1.3); Monocytes % 17.3 %; Neutrophils # 1.7 K/mcL (1.6-8.9); Segmented Neutrophils % 59.5 %
[2016-09-14 06:38] LABS: Platelet Count 39 K/mcL (140-400)
[2016-09-14] MEDS: *HR* Dextrose 50 % in Water (Syg) 50 ML SYRINGE IVP PRN ×2 (07:03→07:06)
[2016-09-14 08:02] LABS: Platelet Estimate Decreased (Normal)
[2016-09-14 08:03] LABS: Anisocytosis 1+ (Not Present); Polychromasia 1+ (Not Present)
[2016-09-14 08:05] LABS: Poikilocytosis 1+ (Not Present)
--- NOTE | 2016-09-14 08:26 | Oncology Inp Consult Note ---
Date of Encounter: 09/14/16 Time of Encounter: 07:57 - Data of Consult Patient: known to practice within the last 3 years Consult date: 09/14/16 Requesting Physician: Marti Hardy MD Primary Care Provider: Travis Deng Jr, MD - Consult Narrative Reason for consult: Pancytopenia, liver failure History of present illness: Ms. Flores is a 76 year old woman seen in consultation for unexplained pancytopenia and suspected active GI bleed. She is known to hematology and was previously seen by my partner Dr. Baxter on 07/25/16 with similar presentation. She has a history of advanced liver cirrhosis with complications from portal hypertension and prior hospitalization for hepatic encephalopathy. She established with Dr. Styles for ongoing management of her liver disease. During her previous hospitalization by Dr. Baxter, she was found to have a low folic acid level and is an appropriate folate supplementation. She is currently hospitalized for acute upper GI bleed after presenting with symptomatic anemia with a hemoglobin less than 6 record transfusion support. She had an EGD 09/10/16 Dr. Styles which showed: Nonobstructive Schatzki's ring at GE junction. Severe portal hypertensive gastropathy throughout the stomach with spontaneous bruising from few areas. Endoscopically treated. 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 She has received 3 units of RBC and 5 units of platelets since admission and is also on octreotide infusion for ongoing bleeding. Oncology is consulted re: pancytopenia probably refractory to transfusion. Dr. Hardy was kind enough to discuss patient's case with me regarding consult question. Patient seen and examined at bedside. Chart reviewed for details of ongoing care by Hospital team which is much appreciated. Some (Charlie) was present at bedside at time of evaluation. She reports feeling well until evaluation and is not in any acute distress. Nephrology is also following due to acute kidney injury superimposed on stage IV chronic kidney disease. I reviewed the most recent consultation report. She had paracentesis 4.5 L transudative fluid on 09/08/16. Cytology showed reactive mesothelial cells. Rest of past medical, surgical, family, social history detailed below and verified with patient today. Review of systems: 12 point review of systems performed with patient and positive findings noted in history of present illness. All other systems are negative: Physical exam: Vital Signs Temp 98.0 F 09/14/16 04:00 Pulse 67 09/14/16 04:00 Resp 16 09/14/16 04:39 BP 137/57 09/14/16 04:00 Pulse Ox 99 09/14/16 04:39 GENERAL: Alert and oriented, comfortable/chronically ill appearing. Mental Status: Affect appropriate for circumstances HEENT: Sclerae anicteric. No mucositis or thrush. No other oral or pharyngeal lesions or erythema. Skin: No rashes or petechiae. No evidence of skin malignancy Lymph nodes: No cervical, supraclavicular, axillary, or inguinal adenopathy. Lungs: Clear to auscultation bilaterally. Clear to percussion bilaterally. Cardiovascular: Regular rate and rhythm. No gallops, murmurs, or rubs. Abdomen: Nontender; protuberant No organomegaly or masses palpable. Extremities: No calf swelling or tenderness. No joint deformity. Neurologic: Alert, Global weakness. No focal motor or sensory abnormalities. Results: Laboratory Last Values WBC 2.8 K/mcL (4.3-11.1) L 09/14/16 06:10 RBC 3.00 M/mcL (3.82-4.97) L 09/14/16 06:10 Hgb 9.2 g/dL (11.5-15.4) L D 09/14/16 06:10 Hct 28.8 % (35.3-44.9) L 09/14/16 06:10 MCV 96.0 fL (83.0-100.0) D 09/14/16 06:10 MCH 30.7 pg (28.0-33.3) 09/14/16 06:10 MCHC 31.9 g/dL (31.6-35.5) 09/14/16 06:10 RDW 19.9 % (11.5-14.5) H 09/14/16 06:10 Plt Count 39 K/mcL (140-400) L 09/14/16 06:10 MPV 11.9 fL (9.4-12.4) 09/14/16 06:10 Immature Gran % 0.4 % (0-4) 09/14/16 06:10 Seg Neutrophils % 59.5 % 09/14/16 06:10 Lymphocytes % 15.2 % 09/14/16 06:10 Monocytes % 17.3 % 09/14/16 06:10 Eosinophils % 6.9 % 09/14/16 06:10 Basophils % 0.7 % 09/14/16 06:10 Neutrophils # 1.7 K/mcL (1.6-8.9) 09/14/16 06:10 Lymphocytes # 0.4 K/mcL (0.6-4.6) L 09/14/16 06:10 Monocytes # 0.5 K/mcL (0.0-1.3) 09/14/16 06:10 Eosinophils # 0.2 K/mcL (0.0-0.6) 09/14/16 06:10 Basophils # 0.0 K/mcL (0.0-0.2) 09/14/16 06:10 Platelet Estimate Decreased (Normal) L 09/14/16 06:10 Immature Plt Fraction 7.7 % (1.1-6.1) H 09/14/16 06:10 Polychromasia 1+ (Not Present) A 09/14/16 06:10 Poikilocytosis 1+ (Not Present) A 09/14/16 06:10 Anisocytosis 1+ (Not Present) A 09/14/16 06:10 PT 14.1 Seconds (9.4-12.1) H 09/10/16 13:25 INR 1.3 09/10/16 13:25 Sodium 138 mEq/L (136-145) 09/14/16 06:10 Potassium 4.0 mEq/L (3.5-4.5) 09/14/16 06:10 Chloride 111 mEq/L (98-109) H 09/14/16 06:10 Carbon Dioxide 25 mEq/L (19-29) 09/14/16 06:10 BUN 36 mg/dL (7-20) H 09/14/16 06:10 Creatinine 1.78 mg/dL (0.57-1.11) H 09/14/16 06:10 Est GFR ( Amer) 33 (> 60) L 09/14/16 06:10 Est GFR (Non-Af Amer) 28 (> 60) L 09/14/16 06:10 BUN/Creatinine Ratio 20 (6-26) 09/14/16 06:10 Glucose 53 mg/dL (70-99) L 09/14/16 06:10 POC Glucose 173 (58-89) H 09/13/16 20:21 Calculated Osmolality 292 (280-300) 09/14/16 06:10 Calcium 8.4 mg/dL (8.6-10.8) L 09/14/16 06:10 Phosphorus 3.4 mg/dL (2.3-4.7) 09/14/16 06:10 Magnesium 1.9 mg/dL (1.6-2.6) 09/14/16 06:10 Total Bilirubin 1.5 mg/dL (0.2-1.2) H D 09/11/16 05:21 Direct Bilirubin 0.4 mg/dL (0.0-0.5) 09/09/16 12:23 Indirect Bilirubin 0.4 mg/dL (0.0-1.2) 09/09/16 12:23 AST 31 Units/L (5-34) 09/11/16 05:21 ALT 16 Units/L (0-55) 09/11/16 05:21 Alkaline Phosphatase 89 Units/L (38-126) 09/11/16 05:21 Ammonia 48 mcmol/L (18-72) 09/10/16 07:09 Serum Total Protein 6.1 g/dL (6.0-8.3) 09/11/16 05:21 Albumin 3.3 g/dL (3.5-5.0) L 09/11/16 05:21 Globulin 2.8 g/dL (2.4-3.5) 09/11/16 05:21 Albumin/Globulin Ratio 1.2 (1.1-2.2) 09/11/16 05:21 Stool Occult Blood Positive (Negative) A 09/09/16 12:12 Blood Type O POSITIVE 09/13/16 09:41 Antibody Screen NEGATIVE 09/13/16 09:41 Crossmatch See Detail 09/13/16 09:41 Radiographic studies: Impression/recommendations: Pancytopenia:Likely multifactorial with contribution from GI bleed, end-stage liver disease, chronic illness. Leukopenia: This is noncritical and no acute intervention is needed for her current counts. We'll simply monitor. Anemia: Hemoglobin is improved somewhat this morning after most recent transfusion. Likely indicates improvement in ongoing bleeding. She has previously documented for the deficiency and is on appropriate supplement. Rate Rest of her anemia workup from last July did not show any hematinic deficiencies other contributing factors. Given history of recent bleed, we'll repeat iron studies and give her a course of IV iron if she is found to be iron deficient. Continue supportive management as you're doing and transfuse RBC to maintain hemoglobin of 7 or greater. Thrombocytopenia: Severe. Given concern about ongoing GI bleed, we'll recommend to transfuse perisplenic metastases to maintain platelet count of 50,000 or greater. If no evidence of active bleeding, platelet count of 30,000 or greater would be reasonable threshold for transfusion. Active GI bleed: Most recent EGD from 09/10/16 showed oozing from portal hypertensive gastropathy/enteropathy. She is on octreotide infusion. If there is lingering concern about active GI bleed, she can be started on Amicar at a dose of 500 mg by mouth twice a day which can be titrated although the up to 1 g by mouth 3 times a day. We'll follow the patient peripherally with you during this hospitalization. Please call with interval questions. Thank you for your excellent ongoing care for allowing us to see her while in- house. Past Med Surg Social Fam HX - Past Medical History Medical history: arthritis, cirrhosis, COPD, dementia, diabetes, GERD, glaucoma , hepatitis, hyperlipidemia, hypertension, liver disease, osteoporosis, renal disease, thyroid disease Psychiatric history: no psych history - Past Surgical History Surgical History: herniorrhaphy - Social History Smoking Status: Never smoker Smokeless Tobacco Status: No Alcohol use: none Drug use: none - Family History Sister Adopted: No Living Status: Hx Family Cardiac Disorders: Yes Hx Family Respiratory Disorders: Yes Hx Family Cancer: Yes Hx Family GI Disorders: Yes (cirrhosis) Hx Family Endocrine Disorder: No Hx Family Neuromuscular Disorders: No Hx Family Neurologic Disorders: No Hx Family HEENT Disorders: No Hx Family Autoimmune Disorders: No Mother Adopted: No Family Member Ethnicity: Non- Living Status: Hx Family Cardiac Disorders: Yes Father Hx Family Cardiac Disorders: Yes ([place]) Son Adopted: No Family Member Ethnicity: Non- Living Status: Still Living Hx Family Cardiac Disorders: Yes (HTN) Hx Family Respiratory Disorders: No Hx Family Cancer: No Hx Family GI Disorders: No Hx Family Endocrine Disorder: No Hx Family Neuromuscular Disorders: No Hx Family Neurologic Disorders: No Hx Family HEENT Disorders: No Hx Family Autoimmune Disorders: No Medications and Allergies Cholecalciferol (Vitamin D3) [Vitamin D3] 50,000 unit PO WESA 11/02/14 [History] Magnesium Oxide [Magnesium] 400 mg PO BID 11/02/14 [History] Aspirin 81 mg PO DAILY 30 Days 11/08/14 [Rx] Ipratropium/Albuterol Neb [Duoneb] 3 ml IH Q4HR PRN 04/26/15 [History] Rifaximin [Xifaxan] 550 mg PO BID #60 tablet 05/01/15 [Rx] Cyanocobalamin (Vitamin B-12) [Vitamin B12] 1,000 mcg PO BID 09/03/15 [History] Zinc Sulfate 220 mg PO BID 09/03/15 [History] Insulin DETEMIR [Levemir Flextouch] 16 unit SQ BID 10/07/15 [History] Lactulose 15 ml PO TID PRN 10/07/15 [History] Levothyroxine [Synthroid] 100 mcg PO QAM 10/07/15 [History] Oxygen 2 l NS AD 12/22/15 [History] Ondansetron ODT [Zofran ODT] 4 mg SL TID PRN 04/02/16 [History] raNITIdine HCl [Ranitidine HCl] 150 mg PO BID 04/02/16 [History] Diclofenac Sodium 1 appl TP QID PRN 04/09/16 [History] Midodrine HCl 2.5 mg PO TID 05/19/16 [History] HYDROcodone/Acet 5/325 mg [[place]ster 5-325 mg] 1 tab PO Q8H PRN 07/14/16 [History] Pantoprazole Sodium [Protonix] 40 mg PO DAILY 07/14/16 [History] Folic Acid 1 mg PO DAILY #30 tablet 07/27/16 [Rx] FLUoxetine HCl [PROzac] 20 mg PO DAILY 09/09/16 [History] Sucralfate [Carafate] 1 gm PO BID 09/09/16 [History] Allergies No Known Allergies Allergy (Verified 09/09/16 11:41) Oncology - Exam - Constitutional Vitals: Temp Pulse Resp BP Pulse Ox 98.0 F 67 16 137/57 99 09/14/16 04:00 09/14/16 04:00 09/14/16 04:39 09/14/16 04:00 09/14/16 04:39 Oncology - Results - Labs Labs: Short CBC 09/14/16 Range/Units 06:10 WBC 2.8 L (4.3-11.1) K/mcL Hgb 9.2 L D (11.5-15.4) g/dL Hct 28.8 L (35.3-44.9) % Plt Count 39 L (140-400) K/mcL BMP 09/14/16 06:10 Sodium 138 Potassium 4.0 Chloride 111 H Carbon Dioxide 25 BUN 36 H Creatinine 1.78 H Glucose 53 L Calcium 8.4 L Consult Discharge Plan - Plan Referrals: Travis Deng Jr, MD [Primary Care Provider] -
--- NOTE | 2016-09-14 09:23 | Nephrology Progress Note ---
Date of Encounter: 09/14/16 Time of Encounter: 09:10 - Assessment and Plan (1) Acute kidney insufficiency Current Visit: No Status: Acute SAUL superimposed on stage IV CKD, related to acute blood loss and possibly contributing recent paracentesis. Renal fct at patients baseline, creat 1.78. Subjective Interval history: Laying quietly in bed, states feeling better. No new complaints. Objective - Vital Signs Vital signs: Vital Signs Temp Pulse Resp BP Pulse Ox 09/14/16 08:00 85 15 161/68 97 09/14/16 04:39 16 99 09/14/16 04:00 98.0 F 67 16 137/57 95 09/14/16 03:50 98.0 F 67 16 137/57 95 09/14/16 00:05 98.4 F 80 18 143/52 94 09/13/16 23:06 96 09/13/16 22:51 98.1 F 89 16 152/77 96 09/13/16 22:16 18 99 09/13/16 21:25 98.1 F 80 20 156/76 98 09/13/16 20:50 73 20 141/66 100 09/13/16 20:00 98.3 F 87 17 165/73 98 09/13/16 18:42 98.2 F 85 20 166/76 96 09/13/16 16:54 97.9 F 87 18 139/61 99 09/13/16 15:52 18 95 09/13/16 15:40 98.3 F 91 20 140/61 98 09/13/16 15:39 97.8 F 83 18 142/69 95 09/13/16 14:11 98.2 F 81 18 141/55 95 09/13/16 13:56 98.0 F 87 18 150/63 96 09/13/16 11:32 18 98 09/13/16 10:56 98.2 F 74 18 134/69 98 Intake and Output 09/13/16 09/14/16 09/14/16 23:59 07:59 15:59 Intake Total 2824 / 2824 100 / 100 Output Total 0 / 0 100 / 100 Balance 2824 / 2824 0 / 0 Intake: IV Fluids 100 / 100 SandoSTATIN 400 MCG In 0. 100 / 100 9 % Sodium Chloride 100 ML @ 25 MCG/HR 6.5 mls/hr IVC .Q16H JANKI Rx#: [id number] Oral 2530 / 2530 0 / 0 Blood Product 294 / 294 Rbcs Leuko Poor As-1 0 / 0 Unit [id number] Rbcs Leuko Poor As-3 Ph 294 / 294 Unit [id number] Output: Urine 0 / 0 100 / 100 Other: Meal Dinner Percent of Meal Consumed 0% Stool Size Smear Stool Color Brown Green # Bowel Movements 1 Weight 75.5 kg Blood Glucose* 173 47 115 Patient Weight 09/14/16 23:59 Weight 75.5 kg - General Appearance General appearance: Present: frail EENT: Present: mucous membranes moist Neck: Present: no JVD Respiratory: Present: clear Cardiology: Present: no edema, regular rate, regular rhythm Gastrointestinal: Present: normoactive bowel sounds, no tenderness Neurologic: Present: alert and oriented x3 Psychiatric: Present: mood/affect appropriate, cooperative - Lab 09/14/16 06:10 09/14/16 06:10 Most recent lab results Calcium 8.4 mg/dL (8.6-10.8) L 09/14/16 06:10 Phosphorus 3.4 mg/dL (2.3-4.7) 09/14/16 06:10 Magnesium 1.9 mg/dL (1.6-2.6) 09/14/16 06:10 - VTE Documentation of Mechanical Device: Intermittent pneumatic compression device Consult Discharge Plan - Plan Referrals: Travis Deng Jr, MD [Primary Care Provider] -
[2016-09-14] MEDS: Pantoprazole 40 MG VIAL IVP SCH ×2 (09:30→20:15)
[2016-09-14] MEDS: Cyanocobalamin (B-12) 1,000 MCG TABLET PO SCH ×2 (09:30→20:15)
[2016-09-14] MEDS: Sucralfate 1 GM TABLET PO SCH ×2 (09:30→17:19)
[2016-09-14] MEDS: FLUoxetine 20 MG CAPSULE PO SCH (09:30)
[2016-09-14] MEDS: Folic Acid 1 MG TABLET PO SCH (09:32)
[2016-09-14] MEDS: Lactulose Oral Soln 20 GM/30 ML UDC PO SCH ×2 (09:32→20:14)
[2016-09-14] MEDS: Insulin LISPRO 300 UNITS/3 ML VIAL SQ SCH ×4 (09:33→20:25)
--- NOTE | 2016-09-14 11:42 | Internal Med Progress Note ---
Date of Encounter: 09/14/16 Time of Encounter: 11:40 - Assessment and plan (1) Acute blood loss anemia Current Visit: No Status: Acute Assessment and plan: History of grade 2 esophageal varices and reports of having dark stools prior to hospitalization s/p PRBC transfusion (09/13/16) GI consultation appreciated, s/p EGD advance diet as tolerated no acute bleeding reported since hospitalization repeat H&H within acceptable range will continue to closely monitor (2) GI bleed Current Visit: Yes Status: Acute Assessment and plan: as listed above Qualifiers: GI bleed type/associated pathology: melena Qualified Code(s): K92.1 - Melena (3) Acute kidney injury superimposed on chronic kidney disease Current Visit: No Status: Acute Assessment and plan: Nephrology consultation appreciated SAUL likely secondary to acute blood loss anemia will hold nephrotoxic agents will continue to monitor (4) Cirrhosis Current Visit: No Status: Chronic Assessment and plan: continue home medications Qualifiers: Hepatic cirrhosis type: alcoholic cirrhosis Ascites presence: with ascites Qualified Code(s): K70.31 - Alcoholic cirrhosis of liver with ascites (5) COPD (chronic obstructive pulmonary disease) Current Visit: No Status: Chronic Assessment and plan: not in acute exacerbation will continue home medications O2 supplementation and bronchodilator support Qualifiers: COPD type: chronic bronchitis Chronic bronchitis type: simple Qualified Code(s): J41.0 - Simple chronic bronchitis (6) Hyperkalemia Current Visit: No Status: Resolved (7) Insulin dependent diabetes mellitus Current Visit: No Status: Chronic Assessment and plan: continue home insulin and ss insulin algorithm as needed monitor fingerstick glucose and blood glucose (8) Thrombocytopenia Current Visit: No Status: Chronic Assessment and plan: secondary to liver disease will transfuse two units platelet today Dr. Townsend (hematology) consultation appreciated As per chief console operator, it is safe for patient to be with a plt count [id number] if no bleeding is reported. Given persistent anemia with drop in H&H, concern for ongoing bleed, will transfuse platelets to maintain level above 50k. (9) DVT prophylaxis Current Visit: No Status: Acute Assessment and plan: SCD Pt encouraged to get out of bed to chair (10) Hypertension Current Visit: Yes Status: Acute Assessment and plan: Pt has history of hypotension and is on Midodrine at home however during this hospitalization, she has remained hypertensive will start Amlodipine 5mg po qd hydralazine 10mg IV q6h prn SBP>150 will closely monitor BP Qualifiers: Hypertension type: essential hypertension Qualified Code(s): I10 - Essential (primary) hypertension - Subjective Interval history: Patient seen and examined with family present at bedside. Pt is s/p EGD. As per Dr. Styles she has portal gastropathy and had multiple lesions in the duodenum and in the stomach requiring cauterization. Pt continues to have low platelet count and given persistent bleeding, will transfuse 2 units platelets to increase platelet count to 50K. Will advance diet as tolerated. D/C octreotide drip. Noted to be hypertensive, added amlodipine 5mg PO qd. Pt is scheduled for paracentesis in am (09/15/16) - Constitutional Vitals: Temp Pulse Resp BP Pulse Ox 98.0 F 85 15 161/68 97 09/14/16 04:00 09/14/16 08:00 09/14/16 08:00 09/14/16 08:00 09/14/16 08:00 General appearance: Present: cooperative, A&O X 3, pleasant, no acute distress, obese, answers questions appropriately - Head Head exam: Present: atraumatic, normocephalic - Eye Eye exam: Present: conjuntiva pink, sclera anicteric - Respiratory Respiratory exam: Absent: respiratory distress, wheezes - Cardiovascular Cardiovascular exam: Present: RRR, +S1, +S2. Absent: diastolic murmur, gallop, rubs, systolic murmur - GI/Abdominal GI/Abdominal exam: Present: distended (ascites), normal bowel sounds, soft, no peritoneal signs. Absent: tenderness - Extremities Exam Extremities exam: Present: warm, radial pulses palpable and symetrical. Absent : calf tenderness, pedal edema - Neurological Exam Neurological exam: Present: alert, oriented X3 - Psychiatric Psychiatric exam: Present: normal affect, normal mood Internal Medicine: Result - Labs CBC & Chem 7: 09/14/16 06:10 09/14/16 06:10 Labs: Short CBC 09/14/16 Range/Units 06:10 WBC 2.8 L (4.3-11.1) K/mcL Hgb 9.2 L D (11.5-15.4) g/dL Hct 28.8 L (35.3-44.9) % Plt Count 39 L (140-400) K/mcL Neutrophils # 1.7 (1.6-8.9) K/mcL BMP 09/14/16 06:10 Sodium 138 Potassium 4.0 Chloride 111 H Carbon Dioxide 25 BUN 36 H Creatinine 1.78 H Glucose 53 L Calcium 8.4 L - ABG Interpretation ABG results: PT/INR, D-dimer PT 14.1 Seconds (9.4-12.1) H 09/10/16 13:25 - VTE Documentation of Mechanical Device: Intermittent pneumatic compression device Consult Discharge Plan - Plan Referrals: Travis Deng Jr, MD [Primary Care Provider] -
[2016-09-14] MEDS ORDERED: 0.9 % Sodium Chloride 250 ML ONE (12:45)
[2016-09-14] MEDS: amLODIPine 5 MG TABLET PO SCH (12:47)
[2016-09-14] MEDS: Insulin DETEMIR 100 UNIT/ML X5UNITS SQ SCH (20:15)
[2016-09-15] MEDS ORDERED: 0.9 % Sodium Chloride 250 ML ONE (03:48)
[2016-09-15] MEDS: Ipratropium/Albuterol Neb 3 ML IH SCH ×4 (04:26→22:52)
[2016-09-15] MEDS: Insulin LISPRO 300 UNITS/3 ML VIAL SQ SCH ×5 (10:01→21:11)
[2016-09-15] MEDS: Sucralfate 1 GM TABLET PO SCH ×2 (10:01→16:10)
[2016-09-15] MEDS: Pantoprazole 40 MG VIAL IVP SCH ×2 (10:01→21:10)
[2016-09-15] MEDS: amLODIPine 5 MG TABLET PO SCH (10:01)
[2016-09-15] MEDS: FLUoxetine 20 MG CAPSULE PO SCH (10:01)
[2016-09-15] MEDS: Cyanocobalamin (B-12) 1,000 MCG TABLET PO SCH ×2 (10:01→21:10)
[2016-09-15] MEDS: Folic Acid 1 MG TABLET PO SCH (10:01)
[2016-09-15] MEDS: Lactulose Oral Soln 20 GM/30 ML UDC PO SCH ×2 (10:02→21:10)
[2016-09-15 10:53] LABS: Hematocrit 27.8 % (35.3-44.9); Red Cell Distribution Width 19.4 % (11.5-14.5)
[2016-09-15 10:55] LABS: Basophils % 0.4 %; Eosinophils # 0.2 K/mcL (0.0-0.6); Hemoglobin 8.8 g/dL (11.5-15.4); Immature Granulocytes % 0.7 % (0-4); Immature Platelets 5.1 % (1.1-6.1); Lymphocytes # 0.4 K/mcL (0.6-4.6); Lymphocytes % 15.5 %; Mean Corpuscular HGB Conc 31.7 g/dL (31.6-35.5); Mean Corpuscular Hemoglobin 30.4 pg (28.0-33.3); Mean Corpuscular Volume 96.2 fL (83.0-100.0); Monocytes # 0.4 K/mcL (0.0-1.3); Monocytes % 14.8 %; Neutrophils # 1.8 K/mcL (1.6-8.9); Red Blood Count 2.89 M/mcL (3.82-4.97); Segmented Neutrophils % 62.6 %
[2016-09-15 10:56] LABS: Calcium 8.6 mg/dL (8.6-10.8); Magnesium 1.8 mg/dL (1.6-2.6); Phosphorous 2.9 mg/dL (2.3-4.7); Platelet Count 51 K/mcL (140-400); Potassium 4.3 mEq/L (3.5-4.5)
--- NOTE | 2016-09-15 11:59 | Internal Med Progress Note ---
Date of Encounter: 09/16/16 Time of Encounter: 11:55 - Assessment and plan (1) Pancytopenia Current Visit: Yes Status: Chronic (2) Acute worsening of stage 3 chronic kidney disease Current Visit: Yes Status: Acute (3) Acute blood loss anemia Current Visit: Yes Status: Acute (4) Cirrhosis of liver with ascites Current Visit: Yes Status: Acute Qualifiers: Hepatic cirrhosis type: alcoholic cirrhosis Qualified Code(s): K70.31 - Alcoholic cirrhosis of liver with ascites - Subjective Interval history: Ms. eNllie Little is currently hospitalized for acute upper GI bleed after presenting with symptomatic anemia with a hemoglobin less than 6 required transfusion support. She had an EGD 09/10/16 Dr. Styles which showed: Nonobstructive Schatzki's ring at GE junction. Severe portal hypertensive gastropathy throughout the stomach with spontaneous bruising from few areas. Endoscopically treated. 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 She also has acute on chronic stage IV renal failure and nephrology is following her. Creatinine has improved during this admission. She has liver cirrhosis and ascites in his plan to get paracentesis. - Constitutional Vitals: Temp Pulse Resp BP Pulse Ox 98.3 F 86 16 130/58 97 09/15/16 08:29 09/15/16 08:29 09/15/16 10:34 09/15/16 08:29 09/15/16 10:34 General appearance: Present: cooperative, A&O X 3, pleasant, no acute distress, obese, answers questions appropriately - Head Head exam: Present: atraumatic, normocephalic - Eye Eye exam: Present: PERRL, conjuntiva pink, sclera anicteric Pupils: Present: PERRL - Neck Neck exam general surgery: Present: supple, trachea midline. Absent: lymphadenopathy - Respiratory Respiratory exam: Present: CTAB. Absent: accessory muscle use, rales, rhonchi, wheezes - Cardiovascular Cardiovascular exam: Present: RRR, +S1, +S2. Absent: diastolic murmur, gallop, rubs, systolic murmur - GI/Abdominal GI/Abdominal exam: Present: normal bowel sounds, soft, no peritoneal signs. Absent: distended, tenderness - Extremities Exam Extremities exam: Present: warm, radial pulses palpable and symetrical. Absent : calf tenderness, cyanotic, pedal edema - Neurological Exam Neurological exam: Present: CN II-XII intact, oriented X3, no focal deficits. Absent: pronater drift, facial droop, speech deficit - Skin Skin exam: Present: dry, intact Internal Medicine: Result - Labs CBC & Chem 7: 09/16/16 05:00 09/16/16 05:00 Labs: Short CBC 09/15/16 Range/Units 10:20 WBC 2.8 L (4.3-11.1) K/mcL Hgb 8.8 L (11.5-15.4) g/dL Hct 27.8 L (35.3-44.9) % Plt Count 51 L (140-400) K/mcL Neutrophils # 1.8 (1.6-8.9) K/mcL BMP 09/15/16 10:20 Sodium 138 Potassium 4.3 Chloride 110 H Carbon Dioxide 21 BUN 36 H Creatinine 1.68 H Glucose 171 H Calcium 8.6 - ABG Interpretation ABG results: PT/INR, D-dimer PT 14.1 Seconds (9.4-12.1) H 09/10/16 13:25 - VTE Documentation of Mechanical Device: Intermittent pneumatic compression device Consult Discharge Plan - Plan Instructions: Abdominal Paracentesis (DC), Anemia (GEN) Referrals: Travis Deng Jr, MD [Primary Care Provider] - 09/23/16 11:00 am Elvira Styles MD [Partnered Physician] - 10/20/16 4:10 pm
[2016-09-15] MEDS ORDERED: ALBUMIN IVPB ONE (14:53)
[2016-09-15] MEDS: Insulin DETEMIR 100 UNIT/ML X5UNITS SQ SCH (21:11)
[2016-09-16] MEDS: Ipratropium/Albuterol Neb 3 ML IH SCH ×3 (04:30→15:58)
[2016-09-16 05:34] LABS: Basophils % 0.4 %; Eosinophils # 0.1 K/mcL (0.0-0.6); Eosinophils % 5.1 %; Hematocrit 27.6 % (35.3-44.9); Hemoglobin 8.8 g/dL (11.5-15.4); Immature Granulocytes % 0.4 % (0-4); Lymphocytes # 0.4 K/mcL (0.6-4.6); Lymphocytes % 16.5 %; Mean Corpuscular HGB Conc 31.9 g/dL (31.6-35.5); Mean Corpuscular Hemoglobin 30.6 pg (28.0-33.3); Mean Corpuscular Volume 95.8 fL (83.0-100.0); Monocytes # 0.3 K/mcL (0.0-1.3); Monocytes % 13.1 %; Red Blood Count 2.88 M/mcL (3.82-4.97); Red Cell Distribution Width 18.9 % (11.5-14.5); Segmented Neutrophils % 64.5 %
[2016-09-16 05:35] LABS: Neutrophils # 1.6 K/mcL (1.6-8.9); Platelet Count 46 K/mcL (140-400)
[2016-09-16 05:46] LABS: Albumin 3.4 g/dL (3.5-5.0); Albumin/Globulin Ratio 1.3 (1.1-2.2); Bilirubin,Total 1.4 mg/dL (0.2-1.2); Calcium 8.9 mg/dL (8.6-10.8); Globulin 2.7 g/dL (2.4-3.5); Potassium 4.8 mEq/L (3.5-4.5); Total Protein 6.1 g/dL (6.0-8.3)
[2016-09-16 05:55] LABS: Platelet Estimate Decreased (Normal)
[2016-09-16 07:29] VITALS: BP 137/60
--- NOTE | 2016-09-16 08:30 | Event Note ---
Date of Encounter: 09/16/16 Time of Encounter: 08:29 The patient's renal function is stable. Nephrology will sign off. Please call again if needed.
--- NOTE | 2016-09-16 09:14 | Gastroenterology Progress Note ---
Date of Encounter: 09/16/16 Time of Encounter: 10:50 - Assessment and plan (1) Cirrhosis Current Visit: No Status: Chronic Assessment and plan: MELD Na 16, B[place]-Kim B Qualifiers: Hepatic cirrhosis type: unspecified hepatic cirrhosis Ascites presence: with ascites Qualified Code(s): K74.60 - Unspecified cirrhosis of liver (2) CKD (chronic kidney disease) stage 3, GFR 30-59 ml/min Current Visit: No Status: Chronic Assessment and plan: Nephrology management. (3) Pancytopenia Current Visit: Yes Status: Chronic Assessment and plan: 2ndary to cirrhosis (4) Ascites Current Visit: No Status: Chronic Assessment and plan: Continue routine paracentesis, diuretics as per nephrology management. Qualifiers: Ascites type: other type Qualified Code(s): R18.8 - Other ascites (5) Hepatic encephalopathy Current Visit: No Status: Chronic Assessment and plan: Continue home medications - titrate lactulose to 2-4 BM daily (6) Anemia of chronic disease Current Visit: No Status: Chronic Assessment and plan: Acute upper GI bleeding worsened chronic anemia. Treated via EGD by Dr. Styles 09/10, hgb stablizing. F/U in GI office with Dr. Styles. - Time Spent With Patient Total time spent is greater than 50% in coordination of care (as documented) at patient's floor/unit and/or counseling patient: less than 15 minutes - Subjective Interval history: Patient well-known to GI service. Currently hospitalized for acute on chronic anemia, GIB - complications from ELLIOTT cirrhosis. Hgb < 6, patient to ER 1 week ago for transfusion. She has been seen by both GI and nephrology during her inpatient stay. Underwent repeat EGD 09/10/[address] Styles which revealed non- obstructive Schatzki ring at GEJ, severe portal hypertensive gastropathy in entire stomach treated with combination of injection and APC. Pt receives regular paracentesis for ascites. Her last Cscope was in [address] Ng, 7mm tubulovillous adenoma was removed. Patient was sitting in chair, son in attendance. Patient indicates she feels much improved at this time, no complaints. Paracentesis yesterday. - Constitutional Vitals: Temp Pulse Resp BP Pulse Ox 98.2 F 88 18 137/60 96 09/16/16 07:28 09/16/16 07:28 09/16/16 07:28 09/16/16 07:28 09/16/16 07:28 General appearance: Present: cooperative, A&O X 3, no acute distress, answers questions appropriately - Head Head exam: Present: atraumatic, normocephalic - Eye Eye exam: Present: normal appearance, sclera anicteric - Neck Neck exam general surgery: Present: normal inspection, trachea midline - Respiratory Respiratory exam: Present: rhonchi, wheezes - Cardiovascular Cardiovascular exam: Present: RRR, +S1, +S2 - GI/Abdominal GI/Abdominal exam: Present: distended, soft, no peritoneal signs - Rectal Rectal exam: Present: deferred - Extremities Exam Extremities exam: Present: warm - Neurological Exam Neurological exam: Present: no focal deficits - Psychiatric Psychiatric exam: Present: normal affect, normal mood - Skin Skin exam: Present: dry, pallor Results - Labs CBC & Chem 7: 09/16/16 05:00 09/16/16 05:00 Labs: Last Result Calcium 8.9 mg/dL (8.6-10.8) 09/16/16 05:00 Stool Occult Blood Positive (Negative) A 09/09/16 12:12 Entire Visit Hgb 8.8 g/dL (11.5-15.4) L 09/16/16 05:00 Hct 27.6 % (35.3-44.9) L 09/16/16 05:00 PT 14.1 Seconds (9.4-12.1) H 09/10/16 13:25 Total Bilirubin 1.4 mg/dL (0.2-1.2) H 09/16/16 05:00 AST 20 Units/L (5-34) 09/16/16 05:00 ALT 8 Units/L (0-55) 09/16/16 05:00 Ammonia 30 mcmol/L (18-72) 09/16/16 05:00 - ABG ABG results: PT/INR, D-dimer PT 14.1 Seconds (9.4-12.1) H 09/10/16 13:25 - Impressions Impressions Paracentesis Ultrasound 09/15/16 00:00 IMPRESSION: Successful ultrasound guided paracentesis. D/ / Kevin Aguilar MD / Kevin Aguilar MD Interpreting Provider: Kevin Aguilar MD - VTE Documentation of Mechanical Device: Intermittent pneumatic compression device Consult Discharge Plan - Plan Referrals: Travis Deng Jr, MD [Primary Care Provider] -
[2016-09-16] MEDS: Sucralfate 1 GM TABLET PO SCH (09:23)
[2016-09-16] MEDS: FLUoxetine 20 MG CAPSULE PO SCH (09:23)
[2016-09-16] MEDS: Cyanocobalamin (B-12) 1,000 MCG TABLET PO SCH (09:23)
[2016-09-16] MEDS: amLODIPine 5 MG TABLET PO SCH (09:23)
[2016-09-16] MEDS: Folic Acid 1 MG TABLET PO SCH (09:23)
[2016-09-16] MEDS: Insulin LISPRO 300 UNITS/3 ML VIAL SQ SCH ×2 (09:24→12:20)
[2016-09-16] MEDS: Lactulose Oral Soln 20 GM/30 ML UDC PO SCH (09:24)
[2016-09-16] MEDS: Pantoprazole 40 MG VIAL IVP SCH (09:24)
--- NOTE | 2016-09-16 15:41 | Physician Discharge Referral ---
Home Health/Hosp Referral Info Transfer to: Home Health Attending Provider: riley Provider in Charge Post Discharge: PCP - Diagnosis (1) Pancytopenia Status: Chronic (2) Acute worsening of stage 3 chronic kidney disease Status: Acute (3) Acute blood loss anemia Status: Acute (4) Cirrhosis of liver with ascites Status: Acute - Respiratory Orders Smoking Cessation: Smoking cessation has been advised. For more information, call the [place] Tobacco Quit Line at 1-215-ELRD-NOW. - Diet/Nutrition Diet/Nutrition Orders: Regular - Activity Activity Orders: Ambulate - Services Needed Following services are medically necessary services: Nursing, Home Health Aide, Physical Therapy, Occupational Therapy - Transfer Medications Home Medications: Cholecalciferol (Vitamin D3) [Vitamin D3] 50,000 unit PO WESA 11/02/14 [History] Magnesium Oxide [Magnesium] 400 mg PO BID 11/02/14 [History] Aspirin 81 mg PO DAILY 30 Days 11/08/14 [Rx] Ipratropium/Albuterol Neb [Duoneb] 3 ml IH Q4HR PRN 04/26/15 [History] Rifaximin [Xifaxan] 550 mg PO BID #60 tablet 05/01/15 [Rx] Cyanocobalamin (Vitamin B-12) [Vitamin B12] 1,000 mcg PO BID 09/03/15 [History] Zinc Sulfate 220 mg PO BID 09/03/15 [History] Insulin DETEMIR [Levemir Flextouch] 16 unit SQ BID 10/07/15 [History] Lactulose 15 ml PO TID PRN 10/07/15 [History] Levothyroxine [Synthroid] 100 mcg PO QAM 10/07/15 [History] Oxygen 2 l NS AD 12/22/15 [History] Ondansetron ODT [Zofran ODT] 4 mg SL TID PRN 04/02/16 [History] raNITIdine HCl [Ranitidine HCl] 150 mg PO BID 04/02/16 [History] Diclofenac Sodium 1 appl TP QID PRN 04/09/16 [History] Midodrine HCl 2.5 mg PO TID 05/19/16 [History] HYDROcodone/Acet 5/325 mg [[place] 5-325 mg] 1 tab PO Q8H PRN 07/14/16 [History] Pantoprazole Sodium [Protonix] 40 mg PO DAILY 07/14/16 [History] Folic Acid 1 mg PO DAILY #30 tablet 07/27/16 [Rx] FLUoxetine HCl [PROzac] 20 mg PO DAILY 09/09/16 [History] Sucralfate [Carafate] 1 gm PO BID 09/09/16 [History] Allergies/Adverse Reactions: Allergies No Known Allergies Allergy (Verified 09/09/16 11:41) Certification: Further, I certify that my clinical findings support that this patient is homebound (i.e. absences from home require considerable and taxing effort and are for medical reasons or moravian services or infrequently or short duration when for other reasons) because: Homebound Reason: Patient requires assistance of a person or device to safely leave home Attestation: My signature below is to certify that this patient is under my care and that I, or nurse practitioner, or a physician's assistant guest services manager working with me, has a face-to -face encounter with this patient.
--- NOTE | 2016-09-16 15:47 | Discharge Summary ---
Date of Encounter: 09/16/16 Time of Encounter: 15:42 - Discharge Diagnosis (1) Pancytopenia Priority: Secondary Status: Chronic (2) Acute worsening of stage 3 chronic kidney disease Priority: Secondary Status: Acute (3) Acute blood loss anemia Priority: Secondary Status: Acute (4) Cirrhosis of liver with ascites Priority: Secondary Status: Acute Qualifiers: Hepatic cirrhosis type: alcoholic cirrhosis Qualified Code(s): K70.31 - Alcoholic cirrhosis of liver with ascites (5) GI bleed Priority: Primary Status: Acute Qualifiers: GI bleed type/associated pathology: melena Qualified Code(s): K92.1 - Melena - Discharge Medications Prescriptions: Furosemide [Lasix] 20 mg PO DAILY #30 tablet Propranolol LA (24 HR) [Inderal LA] 60 mg PO DAILY #30 cap.sa.24h Home Medications: Cholecalciferol (Vitamin D3) [Vitamin D3] 50,000 unit PO WESA 11/02/14 [History] Magnesium Oxide [Magnesium] 400 mg PO BID 11/02/14 [History] Aspirin 81 mg PO DAILY 30 Days 11/08/14 [Rx] Ipratropium/Albuterol Neb [Duoneb] 3 ml IH Q4HR PRN 04/26/15 [History] Rifaximin [Xifaxan] 550 mg PO BID #60 tablet 05/01/15 [Rx] Cyanocobalamin (Vitamin B-12) [Vitamin B12] 1,000 mcg PO BID 09/03/15 [History] Zinc Sulfate 220 mg PO BID 09/03/15 [History] Insulin DETEMIR [Levemir Flextouch] 16 unit SQ BID 10/07/15 [History] Lactulose 15 ml PO TID PRN 10/07/15 [History] Levothyroxine [Synthroid] 100 mcg PO QAM 10/07/15 [History] Oxygen 2 l NS AD 12/22/15 [History] Ondansetron ODT [Zofran ODT] 4 mg SL TID PRN 04/02/16 [History] raNITIdine HCl [Ranitidine HCl] 150 mg PO BID 04/02/16 [History] Diclofenac Sodium 1 appl TP QID PRN 04/09/16 [History] HYDROcodone/Acet 5/325 mg [[place] 5-325 mg] 1 tab PO Q8H PRN 07/14/16 [History] Pantoprazole Sodium [Protonix] 40 mg PO DAILY 07/14/16 [History] Folic Acid 1 mg PO DAILY #30 tablet 07/27/16 [Rx] FLUoxetine HCl [Prozac] 20 mg PO DAILY 09/09/16 [History] Sucralfate [Carafate] 1 gm PO BID 09/09/16 [History] Furosemide [Lasix] 20 mg PO DAILY #30 tablet 09/16/16 [Rx] Midodrine HCl 2.5 mg PO DAILY #0 09/16/16 [Rx] Propranolol LA (24 HR) [Inderal LA] 60 mg PO DAILY #30 cap.sa.24h 09/16/16 [Rx] Allergies/Adverse Reactions: Allergies No Known Allergies Allergy (Verified 09/09/16 11:41) Procedures/tests Complete & Pending: Procedures Performed prior 72 hours Category Date Time Status IR paracentesis ultrasound [IR] Routine IR 09/15/16 Completed Date of admission: 09/09/16 14:23 Primary care physician: Travis Deng Jr, MD Consults: 09/09/16 14:35 Consult to Gastroenterology [CONS] Routine Consulting Provider: Gastroenterology [place] Reason for Consult: anemia Time Notified: 14:36 Call Completed: Yes 09/12/16 10:55 Consult to Physical Therapy [CONS] Stat Comment: Evaluate, develop and implement POC Reason for Consult: needs evaluation 09/13/16 08:07 Consult to Oncology Hematology [CONS] Routine Consulting Provider: Franck Thao Reason for Consult: pancytopenia Call Completed: Yes 09/14/16 15:13 Consult to Interventional Radiology [CONS] Routine Consulting Provider: Radiology Interventional Cols Reason for Consult: paracentesis Call Completed: Yes Discharging clinician: Karina Bee Anticipated date of discharge: 09/16/16 - Patient Status Disposition: Home Health Service Condition: Fair Overall status at discharge: patient is progressing back to baseline - Discharge Instructions Instructions: Propranolol (By mouth), Furosemide (By mouth), Acute Kidney Injury (DC), Acute Kidney Injury (GEN), Abdominal Paracentesis (DC), Anemia (GEN ) Follow Up With: Travis Deng Jr, MD [Primary Care Provider] - 09/23/16 11:00 am Elvira Styles MD [Partnered Physician] - 10/20/16 4:10 pm - Diet and Activity Activity: resume usual activities as tolerated Diet: advance to your usual diet, diabetic diet Hospital course: Ms. Flores is a 76 year old female .Ms. Nellie Little was hospitalized for acute upper GI bleed after presenting with symptomatic anemia with a hemoglobin less than 6 required transfusion support. She had an EGD Dr. Styles which showed: Nonobstructive Schatzki's ring at GE junction. Severe portal hypertensive gastropathy throughout the stomach with spontaneous bruising from few areas. Endoscopically treated. 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 She also has acute on chronic stage IV renal failure and nephrology is following her. Creatinine has improved during this admission. she has wu liver cirrhosis. she getsweekly abdominal paracentesis Her pancytopenia is chronic. She had ultrasound-guided paracentesis and 7 L fluid was removed. It was followed byalbumin infusion. She feels much better now and wants to go home. Her hemoglobin is stable. Her potassium is running on the higher side. I will increase diuretics. We will keep her on enough lactulose to have 2-4 loose bowel movement. - Time Spent with Patient Total time spent providing and/or coordinating discharge services: Greater than 30 minutes - Constitutional Vitals: Temp Pulse Resp BP Pulse Ox 98.2 F 88 20 137/60 96 09/16/16 07:28 09/16/16 07:28 09/16/16 10:48 09/16/16 07:28 09/16/16 10:48 General appearance: Present: cooperative, A&O X 3, pleasant, no acute distress, obese, answers questions appropriately - VTE Documentation of Mechanical Device: Intermittent pneumatic compression device
== END 2016-09-16 17:00 | disposition home health service (06) | DRG 812 ==
LOC: EMEROO 11:22 → 2NENU 14:23
PROVIDERS: ADMIT Internal Medicine; ATTEND Internal Medicine

== ENCOUNTER 2016-10-16 15:41 | Inpatient (IN) ==
[2016-10-16] MEDS ORDERED: 0.9 % Sodium Chloride 1,000 ML IVC ONE (15:48)
[2016-10-16] MEDS ORDERED: Ipratropium/Albuterol Neb 3 ML IH ONE (15:54)
[2016-10-16] MEDS ORDERED: Ampicillin/Sulbactam 3,000 MG in 0.9 % Sodium Chloride Mini Bag 100 ML IVPB ONE (16:01)
[2016-10-16 16:08] LABS: ABG Base Excess -3.2 mEq/L (-2.0 to 3.0); ABG HCO3 20 mEq/L (21-27); ABG Oxygen Saturation 98 % (95-98); ABG PCO2 28 mmHg (35-45); ABG PH 7.46 pH Units (7.32-7.45); ABG PO2 97 mmHg (85-104); ABG TCO2 20.8 mEq/L (20-26)
[2016-10-16 16:11] LABS: Blood Gas FiO2 48 %
[2016-10-16 16:12] LABS: Basophils % 0.5 %; Eosinophils # 0.1 K/mcL (0.0-0.6); Eosinophils % 2.7 %; Hemoglobin 8.9 g/dL (11.5-15.4); Immature Granulocytes % 0.2 % (0-4); Lymphocytes # 0.6 K/mcL (0.6-4.6); Lymphocytes % 14.2 %; Mean Corpuscular HGB Conc 31.8 g/dL (31.6-35.5); Mean Corpuscular Hemoglobin 30.9 pg (28.0-33.3); Mean Corpuscular Volume 97.2 fL (83.0-100.0); Mean Platelet Volume 11.8 fL (9.4-12.4); Monocytes # 0.4 K/mcL (0.0-1.3); Monocytes % 9.2 %; Red Blood Count 2.88 M/mcL (3.82-4.97); Red Cell Distribution Width 17.3 % (11.5-14.5); Segmented Neutrophils % 73.2 %
[2016-10-16 16:14] LABS: Neutrophils # 3.2 K/mcL (1.6-8.9); Platelet Count 63 K/mcL (140-400)
[2016-10-16 16:15] LABS: INR 1.3; Prothrombin Time 13.9 Seconds (9.4-12.1)
[2016-10-16 16:18] LABS: Activated Partial Thrombo Time 28.2 Seconds (26.0-36.0)
[2016-10-16] MEDS ORDERED: Propofol 500 MG/50 ML INFUS..BTL ONE (16:25)
[2016-10-16 16:27] LABS: Albumin 3.7 g/dL (3.5-5.0); Albumin/Globulin Ratio 1.1 (1.1-2.2); Bilirubin,Direct 0.8 mg/dL (0.0-0.5); Bilirubin,Total 1.8 mg/dL (0.2-1.2); Calcium 8.9 mg/dL (8.6-10.8); Globulin 3.4 g/dL (2.4-3.5); Magnesium 2.5 mg/dL (1.6-2.6); Potassium 5.2 mEq/L (3.5-4.5); Total Protein 7.1 g/dL (6.0-8.3)
[2016-10-16] MEDS ORDERED: FentaNYL (PF) 1,000 MCG in 0.9 % Sodium Chloride 80 ML IVC SCH (16:30)
[2016-10-16 16:37] LABS: Platelet Estimate Decreased (Normal)
[2016-10-16] MEDS ORDERED: Lactulose Oral Soln 20 GM/30 ML UDC PO ONE (16:46)
[2016-10-16 16:50] LABS: Thyroid Stimulating Hormone 2.252 mcIU/mL (0.350-4.840)
[2016-10-16] MEDS: Propofol 500 MG/50 ML INFUS..BTL IVC SCH ×2 (17:06→21:26)
[2016-10-16] MEDS ORDERED: 0.9 % Sodium Chloride 1,000 ML ONE (17:12)
--- NOTE | 2016-10-16 17:12 | Emergency Department Note ---
Disposition Clinical Impression: Hepatic encephalopathy, Obtunded, Hyperkalemia Altered mental status Qualifiers: Altered mental status type: somnolence Qualified Code(s): R40.0 - Somnolence Disposition: Admitted As Inpatient Condition: Critical Time of Disposition: 18:58 General Adult HPI - General Chief complaint: ED Altered Mental Status Stated complaint: decreased LOC Time Seen by Provider: 10/16/16 15:45 Source: EMS Limitations: altered mental status Nursing Notes Reviewed: Yes Vital Signs Reviewed: Yes - History of Present Illness HPI Narrative: This is a 76-year-old female with a past medical history of hepatic encephalopathy, hepatic cirrhosis, diabetes, anemia, chronic kidney disease. She presents to the emergency department after her son stated that she became unresponsive. EMS states that they were not able to alert her either. Son states that this is how she normally acts when she has an exacerbation of her hepatic encephalopathy. Pain Scale: 0 - Related Data Home Medications Medication Instructions Recorded Confirmed Cholecalciferol (Vitamin D3) 50,000 unit PO WESA 11/02/14 10/16/16 [Vitamin D3] Magnesium Oxide [Magnesium] 400 mg PO BID 11/02/14 10/16/16 Ipratropium/Albuterol Neb [Duoneb] 3 ml IH Q4HR PRN 04/26/15 10/16/16 Cyanocobalamin (Vitamin B-12) 1,000 mcg PO BID 09/03/15 10/16/16 [Vitamin B12] Zinc Sulfate 220 mg PO BID 09/03/15 10/16/16 Insulin DETEMIR [Levemir Flextouch] 40 unit SQ BID 10/07/15 10/16/16 Lactulose 15 ml PO TID MDD HEPATIC 10/07/15 10/16/16 ENCEPALOPATHY Levothyroxine [Synthroid] 100 mcg PO QAM 10/07/15 10/16/16 Oxygen 2 l NS AD 12/22/15 10/16/16 Ondansetron ODT [Zofran ODT] 4 mg SL TID PRN 04/02/16 10/16/16 raNITIdine HCl [Ranitidine HCl] 150 mg PO BID 04/02/16 10/16/16 Diclofenac Sodium 1 appl TP QID PRN 04/09/16 10/16/16 HYDROcodone/Acet 5/325 mg [Jamison 1 tab PO Q8H PRN 07/14/16 10/16/16 5-325 mg] Pantoprazole Sodium [Protonix] 40 mg PO DAILY 07/14/16 10/16/16 FLUoxetine HCl [Prozac] 20 mg PO DAILY 09/09/16 10/16/16 Sucralfate [Carafate] 1 gm PO BID 09/09/16 10/16/16 Previous Rx's Medication Instructions Recorded Aspirin 81 mg PO DAILY 30 Days 11/08/14 Rifaximin [Xifaxan] 550 mg PO BID #60 tablet 05/01/15 Folic Acid 1 mg PO DAILY #30 tablet 07/27/16 Furosemide [Lasix] 20 mg PO DAILY #30 tablet 09/16/16 Midodrine HCl 2.5 mg PO DAILY #0 09/16/16 Propranolol LA (24 HR) [Inderal LA] 60 mg PO DAILY #30 cap.sa.24h 09/16/16 Allergies Allergy/AdvReac Type Severity Reaction Status Date / Time No Known Allergies Allergy Verified 09/09/16 11:41 Limitations: ROS unobtainable due to patients medical condition Past Medical History - Past Medical History Medical history: Reports: arthritis, cirrhosis, COPD, dementia, diabetes, GERD, glaucoma, hepatitis, hyperlipidemia, hypertension, liver disease, osteoporosis, renal disease, thyroid disease Surgical history: Reports: herniorrhaphy Psychiatric history: Reports: no psych history COMPUTERIZED TABLE CUTTER history: Reports: no COMPUTERIZED TABLE CUTTER history - Social History Smoking Status: Never smoker Smokeless Tobacco Status: No Alcohol use: Reports: none Drug use: Reports: none Physical Exam - General Limitations: altered mental status General appearance: obtunded - Eye Eye exam: Absent: scleral icterus, conjunctival injection - ENT ENT exam: mucous membranes dry - Neck Neck exam: Present: trachea midline - Chest Chest inspection: Present: symmetric chest wall rise - Respiratory Respiratory exam: Present: respiratory distress, wheezes, prolonged expiratory phase - Abdominal Exam Abdominal exam: Present: soft, distention, normal bowel sounds. Absent: guarding, rebound, rigidity - Expanded Lower Extremity Exam Neurovascular/Tendon exam: Present: normal capillary refill - Neurological Exam Neurological exam: Present: other (Patient was obtunded, GCS 4) Course Course Narrative: This is a 76-year-old female with a past medical history of panic encephalopathy. This patient presented to the emergency department with a GCS of 4 was unresponsive. There was immediate concern of an exacerbation of her hepatic encephalopathy, hemorrhagic stroke, sepsis. This patient was intubated as there was concern that she cannot protect her airway. She has GCS of 4. An EKG, CBC, BMP, hepatic panel panel, ammonia level , blood cultures were obtained. CT scan was also obtained. - Reevaluation(s) Reevaluation #1: This patient had an elevated ammonia level of 183. She is currently intubated. At this time, this patient has an exacerbation of hepatic encephalopathy. She has no current intracranial abnormality to suggest a hemorrhagic stroke. We will admit her to the hospitalist at this time. Dr. Bee agreed to accept the admission. Head CT 10/16/16 15:53 IMPRESSION: Stable appearance of the brain with no acute intracranial abnormality. D/ / Jersey Logan MD / Jersey Logan MD Interpreting Provider: Jersey Logan MD Chest X-Ray 10/16/16 16:54 IMPRESSION: 1. The ET tube is 4 cm above the surjit. 2. Small left pleural effusion and bibasilar atelectasis/infiltrate. 3. Pulmonary vascular congestion, either secondary to CHF or fluid overload. D/ / Inocente Scruggs MD / Inocente Scruggs MD Interpreting Provider: Inocente Scruggs MD Vital Signs Temperature 98.2 F 10/16/16 15:41 Pulse Rate 86 10/16/16 15:41 Respiratory Rate 22 10/16/16 15:41 Blood Pressure 197/81 10/16/16 15:41 O2 Sat by Pulse Oximetry 92 10/16/16 15:41 Temperature 98.2 F 10/16/16 15:41 Pulse Rate 106 10/16/16 17:27 Respiratory Rate 14 10/16/16 18:10 Blood Pressure 169/83 10/16/16 17:47 O2 Sat by Pulse Oximetry 100 10/16/16 18:10 Oxygen Delivery Oxygen Delivery Ventilator Time: 16:30 Vital Signs Temperature 98.2 F 10/16/16 15:41 Pulse Rate 86 10/16/16 15:41 Respiratory Rate 22 10/16/16 15:41 Blood Pressure 197/81 10/16/16 15:41 O2 Sat by Pulse Oximetry 92 10/16/16 15:41 Temperature 98.2 F 10/16/16 15:41 Pulse Rate 106 10/16/16 17:27 Respiratory Rate 14 10/16/16 18:10 Blood Pressure 169/83 10/16/16 17:47 O2 Sat by Pulse Oximetry 100 10/16/16 18:10 Oxygen Delivery Oxygen Delivery Ventilator Procedures - Intubation Time out performed: Yes sedative: Etomidate Mg Given: 20 paralytic: Rocuronium Mg Given: 70 Laryngoscope: other (Glydescope) ET Tube Size: 7.5 ET Tube Uncuffed: No Tube Secured Depth (cm): 21 Tube Secured Location: lips Tube Placement Confirmation: visualized tube passing through cords, equal breath sounds bilaterally, no breath sounds over epigastrium, confirmation by capnometry Patient Tolerated Procedure: well, no complications Intubation Complications: none - Ultrasound-Other Narrative: Ultrasound was obtained of the abdomen to scan for abdominal ascites. Conclusion: Pockets of hypoechoic areas were viewed on ultrasound which was suggestive of ascites. Medical Decision Making - Medical Records Medical records reviewed: Yes I reviewed the patient's medical records. - Lab Data Lab results reviewed: Yes I reviewed the patient's lab results. Result diagrams: 10/16/16 15:57 10/16/16 15:57 Lab Results 10/16/16 10/16/16 10/16/16 Range/Units 15:56 15:57 15:57 WBC 4.4 (4.3-11.1) K/mcL RBC 2.88 L (3.82-4.97) M/mcL Hgb 8.9 L (11.5-15.4) g/dL Hct 28.0 L (35.3-44.9) % MCV 97.2 (83.0-100.0) fL MCH 30.9 (28.0-33.3) pg MCHC 31.8 (31.6-35.5) g/dL RDW 17.3 H (11.5-14.5) % Plt Count 63 L (140-400) K/mcL MPV 11.8 (9.4-12.4) fL Immature Gran % 0.2 (0-4) % Seg Neutrophils % 73.2 % Lymphocytes % 14.2 % Monocytes % 9.2 % Eosinophils % 2.7 % Basophils % 0.5 % Neutrophils # 3.2 (1.6-8.9) K/mcL Lymphocytes # 0.6 (0.6-4.6) K/mcL Monocytes # 0.4 (0.0-1.3) K/mcL Eosinophils # 0.1 (0.0-0.6) K/mcL Basophils # 0.0 (0.0-0.2) K/mcL Platelet Estimate Decreased L (Normal) PT (9.4-12.1) Seconds INR APTT (26.0-36.0) Seconds ABG pH 7.46 H (7.32-7.45) pH Units ABG pCO2 28 L (35-45) mmHg ABG pO2 97 (85-104) mmHg ABG HCO3 20 L (21-27) mEq/L ABG Total CO2 20.8 (20-26) mEq/L ABG O2 Saturation 98 (95-98) % ABG Base Excess -3.2 L (-2.0 to 3.0) mEq/L Blood Gas Modality NC Inspired O2 48 % Sodium 139 (136-145) mEq/L Potassium 5.2 H (3.5-4.5) mEq/L Chloride 109 (98-109) mEq/L Carbon Dioxide 20 (19-29) mEq/L BUN 52 H (7-20) mg/dL Creatinine 2.50 H (0.57-1.11) mg/dL Est GFR ( Amer) 23 L (> 60) Est GFR (Non-Af Amer) 19 L (> 60) BUN/Creatinine Ratio 21 (6-26) Glucose 339 H (70-99) mg/dL Calculated Osmolality 315 H (280-300) Lactic Acid (0.5-2.2) mmol/L Calcium 8.9 (8.6-10.8) mg/dL Phosphorus 3.0 (2.3-4.7) mg/dL Magnesium 2.5 (1.6-2.6) mg/dL Total Bilirubin 1.8 H (0.2-1.2) mg/dL Direct Bilirubin 0.8 H (0.0-0.5) mg/dL Indirect Bilirubin 1.0 (0.0-1.2) mg/dL AST 28 (5-34) Units/L ALT 23 (0-55) Units/L Alkaline Phosphatase 162 H (38-126) Units/L Ammonia (18-72) mcmol/L Troponin I (0-0.03) ng/mL Serum Total Protein 7.1 (6.0-8.3) g/dL Albumin 3.7 (3.5-5.0) g/dL Globulin 3.4 (2.4-3.5) g/dL Albumin/Globulin Ratio 1.1 (1.1-2.2) TSH 2.252 (0.350-4.840) mcIU/mL 10/16/16 10/16/16 10/16/16 Range/Units 15:57 15:57 15:57 WBC (4.3-11.1) K/mcL RBC (3.82-4.97) M/mcL Hgb (11.5-15.4) g/dL Hct (35.3-44.9) % MCV (83.0-100.0) fL MCH (28.0-33.3) pg MCHC (31.6-35.5) g/dL RDW (11.5-14.5) % Plt Count (140-400) K/mcL MPV (9.4-12.4) fL Immature Gran % (0-4) % Seg Neutrophils % % Lymphocytes % % Monocytes % % Eosinophils % % Basophils % % Neutrophils # (1.6-8.9) K/mcL Lymphocytes # (0.6-4.6) K/mcL Monocytes # (0.0-1.3) K/mcL Eosinophils # (0.0-0.6) K/mcL Basophils # (0.0-0.2) K/mcL Platelet Estimate (Normal) PT 13.9 H (9.4-12.1) Seconds INR 1.3 APTT 28.2 (26.0-36.0) Seconds ABG pH (7.32-7.45) pH Units ABG pCO2 (35-45) mmHg ABG pO2 (85-104) mmHg ABG HCO3 (21-27) mEq/L ABG Total CO2 (20-26) mEq/L ABG O2 Saturation (95-98) % ABG Base Excess (-2.0 to 3.0) mEq/L Blood Gas Modality Inspired O2 % Sodium (136-145) mEq/L Potassium (3.5-4.5) mEq/L Chloride (98-109) mEq/L Carbon Dioxide (19-29) mEq/L BUN (7-20) mg/dL Creatinine (0.57-1.11) mg/dL Est GFR ( Amer) (> 60) Est GFR (Non-Af Amer) (> 60) BUN/Creatinine Ratio (6-26) Glucose (70-99) mg/dL Calculated Osmolality (280-300) Lactic Acid 3.2 H (0.5-2.2) mmol/L Calcium (8.6-10.8) mg/dL Phosphorus (2.3-4.7) mg/dL Magnesium (1.6-2.6) mg/dL Total Bilirubin (0.2-1.2) mg/dL Direct Bilirubin (0.0-0.5) mg/dL Indirect Bilirubin (0.0-1.2) mg/dL AST (5-34) Units/L ALT (0-55) Units/L Alkaline Phosphatase (38-126) Units/L Ammonia (18-72) mcmol/L Troponin I 0.02 (0-0.03) ng/mL Serum Total Protein (6.0-8.3) g/dL Albumin (3.5-5.0) g/dL Globulin (2.4-3.5) g/dL Albumin/Globulin Ratio (1.1-2.2) TSH (0.350-4.840) mcIU/mL 10/16/16 Range/Units 16:14 WBC (4.3-11.1) K/mcL RBC (3.82-4.97) M/mcL Hgb (11.5-15.4) g/dL Hct (35.3-44.9) % MCV (83.0-100.0) fL MCH (28.0-33.3) pg MCHC (31.6-35.5) g/dL RDW (11.5-14.5) % Plt Count (140-400) K/mcL MPV (9.4-12.4) fL Immature Gran % (0-4) % Seg Neutrophils % % Lymphocytes % % Monocytes % % Eosinophils % % Basophils % % Neutrophils # (1.6-8.9) K/mcL Lymphocytes # (0.6-4.6) K/mcL Monocytes # (0.0-1.3) K/mcL Eosinophils # (0.0-0.6) K/mcL Basophils # (0.0-0.2) K/mcL Platelet Estimate (Normal) PT (9.4-12.1) Seconds INR APTT (26.0-36.0) Seconds ABG pH (7.32-7.45) pH Units ABG pCO2 (35-45) mmHg ABG pO2 (85-104) mmHg ABG HCO3 (21-27) mEq/L ABG Total CO2 (20-26) mEq/L ABG O2 Saturation (95-98) % ABG Base Excess (-2.0 to 3.0) mEq/L Blood Gas Modality Inspired O2 % Sodium (136-145) mEq/L Potassium (3.5-4.5) mEq/L Chloride (98-109) mEq/L Carbon Dioxide (19-29) mEq/L BUN (7-20) mg/dL Creatinine (0.57-1.11) mg/dL Est GFR ( Amer) (> 60) Est GFR (Non-Af Amer) (> 60) BUN/Creatinine Ratio (6-26) Glucose (70-99) mg/dL Calculated Osmolality (280-300) Lactic Acid (0.5-2.2) mmol/L Calcium (8.6-10.8) mg/dL Phosphorus (2.3-4.7) mg/dL Magnesium (1.6-2.6) mg/dL Total Bilirubin (0.2-1.2) mg/dL Direct Bilirubin (0.0-0.5) mg/dL Indirect Bilirubin (0.0-1.2) mg/dL AST (5-34) Units/L ALT (0-55) Units/L Alkaline Phosphatase (38-126) Units/L Ammonia 183 H (18-72) mcmol/L Troponin I (0-0.03) ng/mL Serum Total Protein (6.0-8.3) g/dL Albumin (3.5-5.0) g/dL Globulin (2.4-3.5) g/dL Albumin/Globulin Ratio (1.1-2.2) TSH (0.350-4.840) mcIU/mL - Radiology Data Radiology results reviewed: Yes I reviewed the patient's radiology results. - EKG Data EKG #1 EKG attestation: Yes I reviewed and interpreted this EKG. EKG results narrative: 10/16/2016 Ventricular rate 89 bpm, OH interval 144 ms, QRS duration 117 ms, QTC 422 ms, QTC 469 ms, left axis deviation. Sinus rhythm with left axis deviation, prolonged QT interval. There are no new changes noted from the EKG performed on September 102016. Critical Care Time Critical Care Time: Yes Total Critical Care Time: 60 Attestation: Critical care performed: Time is exclusive of separately billable procedures. Time includes: direct patient care, patient reassessment, coordination of patient care, interpretation of data (laboratory data, radiology data, and respiratory data), review of patient's medical records, medical consultation and documentation of patient care. Procedures included in critical care time: Procedures excluded from critical care time: Attestation Statement - Attestation Attestation: I, Norberto Martinez DO, examined this patient [id number] and my medical decision-making was reviewed with Dr. Zayas PGY -1 20204, Resident Physician. I agree with the documented findings, disposition and treatment plan as described except to the extent set forth below. Please see my progress notes for details. 68-year-old female presents emergency room by EMS for evaluation of altered mentation. History of liver cirrhosis and hepatic encephalopathy and anemia. Patient concerning her initial presentation of respiratory decompensation and inability to maintain her airway. Advanced directive paperwork was reviewed showing DNR CCA with DO NOT INTUBATE unless it is for short-term treatment. Son was not initially available at the bedside and patient was going to be placed on BiPAP as well as have evaluation for septic presentation and hepatic encephalopathy. A bedside ultrasound completed showing free fluid in the abdomen but no other acute issues noted at this point. Patient persisted with her altered mentation despite fluids and symptom control. Son arrived and he was comfortable with intubation at this point. Patient was intubated without any complication by the resident physician Dr. zayas. One attempt is made with direct video laryngoscopy. I was available and at the bedside throughout the entire procedure. Patient was placed on a ventilator after that. Chest x- ray confirmed appropriate placement. CT imaging resulted negative for acute bleed or intracranial pathology. Ammonia was elevated at 183. OG tube was placed and patient was given lactulose. Hospitalist was contacted and informed of patient's presentation symptoms medical intervention including antibiotics for aspiration pneumonia secondary to her history treatment for hepatic encephalopathy and elevated ammonia and intubation. Patient IV lines in place with fluids running. Patient otherwise is stable and will be admitted to the hospital so this time. Physical exam was otherwise benign except for the altered mentation presentation at this point. We will continue to monitor intervention process is completed. See detailed documentation of the course of care and medical intervention and resident physician's note.
[2016-10-16 17:44] LABS: Bilirubin,Urine Negative (Negative); Blood,Urine Negative (Negative); Clarity,Urine Clear (Clear); Color,Urine Dark Yellow (Yellow); Glucose,Urine (UA) 100 mg/dL (Normal); Ketones,Urine Negative (Negative); Leukocyte Esterase,Urine Small (Negative); Nitrite,Urine Negative (Negative); Protein,Urine Trace mg/dL (Neg-Trace); Specific Gravity,Urine 1.024 (1.010-1.025); Urobilinogen,Urine Normal (Normal)
[2016-10-16 17:46] LABS: Bacteria,Urine None Seen per hpf (None-Few); Squamous Epithelial Cell,Urine Many per lpf (None-Few)
[2016-10-16 17:50] LABS: Amphetamine Screen,Urine Negative ng/mL (Cutoff=1000); Barbiturate Screen,Urine Negative ng/mL (Cutoff=200); Benzodiazepines Screen,Urine Positive ng/mL (Cutoff=200); Cannabinoid Screen,Urine Negative ng/mL (Cutoff = 50); Cocaine Screen,Urine Negative ng/mL (Cutoff= 300); Opiate Screen,Urine Positive ng/mL (Cutoff=300); Phencyclidine Screen,Urine Negative ng/mL (Cutoff=25)
[2016-10-16 17:53] LABS: Hyaline Casts,Urine Few per lpf (None-Few); RBC,Urine 0-3 per hpf (0-3)
[2016-10-16 17:54] LABS: Yeast,Urine Moderate per hpf (None Seen)
[2016-10-16] MEDS ORDERED: Naloxone 0.4 MG/ML INJ IVP PRN (18:30)
[2016-10-16] MEDS ORDERED: Ipratropium/Albuterol Neb 3 ML IH PRN (18:41)
[2016-10-16] MEDS ORDERED: D5% in Water 1,000 ML IVC PRN (18:56)
[2016-10-16] MEDS ORDERED: *HR* Dextrose 50 % in Water (Syg) 50 ML SYRINGE IVP PRN (18:56)
[2016-10-16] MEDS ORDERED: Dextrose Gel 15 GM PO PRN ×2 (18:56)
--- NOTE | 2016-10-16 19:09 | Internal Med History&Physical ---
<Ying Chawla - Last Filed: 10/16/16 20:01> Date of Encounter: 10/16/16 Time of Encounter: 19:03 Assessment and Plan (1) Hepatic encephalopathy Current visit: Yes Status: Acute 1 patient's been lethargic at home presented to the ER with a [place] Coma Scale of 4 she was intubated protect her airway. CT of her head was negative for any endocrine abnormalities. Her ammonia levels 183. We will continue with lactulose per her NG 2 recheck ammonia in a.m. 3 continue with ventilator support overnight (2) Hyperkalemia Current visit: Yes Status: Acute 1 we will give IV Lasix and recheck potassium 2 continue his cardiac monitoring (3) Cirrhosis of liver with ascites Current visit: No Status: Chronic 1 we will continue with lactulose, rifaximin, 2 patient receives paracentesis on Tuesdays-we will continue as needed Qualifiers: Hepatic cirrhosis type: unspecified hepatic cirrhosis Qualified Code(s): K74.60 - Unspecified cirrhosis of liver (4) Diabetes Current visit: No Status: Acute Patient is nothing by mouth Accu-Cheks every 6 hours will sign scale insulin Qualifiers: Diabetes mellitus type: type 2 Diabetes mellitus complication status: with kidney complications Diabetes mellitus complication detail: with chronic kidney disease Diabetes mellitus halfway insulin use: with exterminator helper use Chronic kidney disease stage: stage 3 (moderate) Qualified Code(s): E11.22 - Type 2 diabetes mellitus with diabetic chronic kidney disease; N18.3 - Chronic kidney disease, stage 3 (moderate); 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 We will give a dose of IV Lasix-continue to monitor creatinine 2 monitor intake and output daily weights 3 avoid nephrotoxins (6) Fluid overload Current visit: Yes Status: Acute 1 chest x-ray does show some vascular congestion and negative of CHF. We will give extra dose of IV Lasix 20 mg 1 continue daily Lasix. 2 monitor intake and output daily weights 3 continue to wean oxygen Qualifiers: Hypervolemia type: unspecified Qualified Code(s): E87.70 - Fluid overload, unspecified (7) DVT prophylaxis Current visit: No Status: Acute SCDs patient's platelets are 63 (8) COPD (chronic obstructive pulmonary disease) Current visit: No Status: Chronic 1 -no wheezing. we will continue with bronchodilators and oxygen titrated down to patient's on 2 L continuously. Qualifiers: COPD type: unspecified COPD Qualified Code(s): J44.9 - Chronic obstructive pulmonary disease, unspecified Internal Medicine - H&P: HPI Chief complaint: Altered mental state Admitted From: Emergency Dept Plans for Post Hospital Care: Home History of present illness: Ms. Flores is a 76 year old female history of ELLIOTT cirrhosis recurrent hepatic cephalopathy pancytopenia CK D stage III DM T2 hypertension COPD oxygen dependent 2 L nasal cannula history of grade 2 esophageal varices previously banded GI bleed information obtained from son and medical records due to patient 's intubated. According to the son the patient underwent paracentesis on Wednesday and had 3 a half liters removed. She was doing well and that over the past few days she has grown increasingly lethargic. This afternoon he was having difficulty awaking her and called EMS. The patient presented to the emergency department her GCS was 4 and was intubated to protect her airway CT of head was obtained which was negative for any any cranial abnormality lab work was obtained which did reveal ammonia 183. Patient was given lactulose and admitted to the ICU for further treatment and evaluation. Presently the patient is sedated and does not respond to any verbal tactile or painful stimuli. The son is at the bedside and he does states that patient has been taking medication as prescribed and that she has been having one large bowel movements a day. At times she will have one large and one small. The patient did have an episode of emesis this a.m. otherwise she has been in her normal state of health. Her lung sounds are clear heart sounds are regular S1 and S2 with no rubs clicks count was noted abdomen is soft nondistended. She does have a Aviles in place as well as OG. He is hemodynamically stable at this time. I discussed case with Dr. Todd who agrees with plan Past Med Surg Social Fam HX - Past Medical History Medical history: arthritis, cirrhosis, COPD, dementia, diabetes, GERD, glaucoma , hepatitis, hyperlipidemia, hypertension, liver disease, osteoporosis, renal disease, thyroid disease Psychiatric history: no psych history - Past Surgical History Surgical History: herniorrhaphy - Social History Smoking Status: Never smoker Smokeless Tobacco Status: No Alcohol use: none Drug use: none - Family History Sister Adopted: No Living Status: Hx Family Cardiac Disorders: Yes Hx Family Respiratory Disorders: Yes Hx Family Cancer: Yes Hx Family GI Disorders: Yes (cirrhosis) Hx Family Endocrine Disorder: No Hx Family Neuromuscular Disorders: No Hx Family Neurologic Disorders: No Hx Family HEENT Disorders: No Hx Family Autoimmune Disorders: No Mother Adopted: No Family Member Ethnicity: Non- Living Status: Hx Family Cardiac Disorders: Yes Father Hx Family Cardiac Disorders: Yes (PR) Son Adopted: No Family Member Ethnicity: Non- Living Status: Still Living Hx Family Cardiac Disorders: Yes (HTN) Hx Family Respiratory Disorders: No Hx Family Cancer: No Hx Family GI Disorders: No Hx Family Endocrine Disorder: No Hx Family Neuromuscular Disorders: No Hx Family Neurologic Disorders: No Hx Family HEENT Disorders: No Hx Family Autoimmune Disorders: No Internal Medicine - H&P: Meds Cholecalciferol (Vitamin D3) [Vitamin D3] 50,000 unit PO WESA 11/02/14 [History] Magnesium Oxide [Magnesium] 400 mg PO BID 11/02/14 [History] Aspirin 81 mg PO DAILY 30 Days 11/08/14 [Rx] Ipratropium/Albuterol Neb [Duoneb] 3 ml IH Q4HR PRN 04/26/15 [History] Rifaximin [Xifaxan] 550 mg PO BID #60 tablet 05/01/15 [Rx] Cyanocobalamin (Vitamin B-12) [Vitamin B12] 1,000 mcg PO BID 09/03/15 [History] Zinc Sulfate 220 mg PO BID 09/03/15 [History] Insulin DETEMIR [Levemir Flextouch] 40 unit SQ BID 10/07/15 [History] Lactulose 15 ml PO TID MDD HEPATIC ENCEPALOPATHY 10/07/15 [History] Levothyroxine [Synthroid] 100 mcg PO QAM 10/07/15 [History] Oxygen 2 l NS AD 12/22/15 [History] Ondansetron ODT [Zofran ODT] 4 mg SL TID PRN 04/02/16 [History] raNITIdine HCl [Ranitidine HCl] 150 mg PO BID 04/02/16 [History] Diclofenac Sodium 1 appl TP QID PRN 04/09/16 [History] HYDROcodone/Acet 5/325 mg [[place] 5-325 mg] 1 tab PO Q8H PRN 07/14/16 [History] Pantoprazole Sodium [Protonix] 40 mg PO DAILY 07/14/16 [History] Folic Acid 1 mg PO DAILY #30 tablet 07/27/16 [Rx] FLUoxetine HCl [Prozac] 20 mg PO DAILY 09/09/16 [History] Sucralfate [Carafate] 1 gm PO BID 09/09/16 [History] Furosemide [Lasix] 20 mg PO DAILY #30 tablet 09/16/16 [Rx] Midodrine HCl 2.5 mg PO DAILY #0 09/16/16 [Rx] Propranolol LA (24 HR) [Inderal LA] 60 mg PO DAILY #30 cap.sa.24h 09/16/16 [Rx] 3 Allergy/AdvReac Type Severity Reaction Status Date / Time No Known Allergies Allergy Verified 09/09/16 11:41 ROS unobtainable: due to endotracheal tube All Systems PM: A 10-system review of systems was performed and is negative for pertinent findings except as documented above in the HPI. - Constitutional Vitals: Temp Pulse Resp BP Pulse Ox 97.2 F L 106 14 176/91 100 10/16/16 18:08 10/16/16 18:08 10/16/16 18:10 10/16/16 18:08 10/16/16 18:10 Exam: Sedated on the vent - Head Head exam: Present: atraumatic, normocephalic - Respiratory Respiratory exam: Present: CTAB. Absent: accessory muscle use, rales, rhonchi, wheezes - Cardiovascular Cardiovascular exam: Present: RRR, +S1, +S2. Absent: diastolic murmur, gallop, rubs, systolic murmur - GI/Abdominal GI/Abdominal exam: Present: normal bowel sounds, soft, no peritoneal signs. Absent: distended, tenderness - Extremities Exam Extremities exam: Present: warm, radial pulses palpable and symmetrical. Absent : calf tenderness, cyanotic, pedal edema - Neurological Exam Neurological exam: Absent: pronater drift, facial droop, speech deficit Additional comments: Sedated - Skin Skin exam: Present: dry, intact Internal Med - H&P Results - Labs CBC & Chem 7: 10/16/16 15:57 10/16/16 15:57 Labs: Urine 10/16/16 Range/Units 17:38 Urine Color Dark Yellow (Yellow) Urine Clarity Clear (Clear) Urine pH 6.0 (5.0-8.0) pH Units Ur Specific [place] 1.024 (1.010-1.025) Urine Protein Trace (Neg-Trace) mg/dL Urine Glucose (UA) 100 H (Normal) mg/dL - Diagnostic Studies Other Images Additional comments: Head CT 10/16/16 15:53 IMPRESSION: Stable appearance of the brain with no acute intracranial abnormality. D/ / Jersey Logan MD / Jersey Logan MD Interpreting Provider: Jersey Logan MD Chest X-Ray 10/16/16 16:54 IMPRESSION: 1. The ET tube is 4 cm above the surjit. 2. Small left pleural effusion and bibasilar atelectasis/infiltrate. 3. Pulmonary vascular congestion, either secondary to CHF or fluid overload. D/ / Inocente Scruggs MD / Inocente Scruggs MD Interpreting Provider: Inocente Scruggs MD <PerezÓscarhiro - Last Filed: 10/17/16 01:04> Date of Encounter: 10/17/16 Internal Medicine - H&P: HPI History of present illness: Ms. Flores is a 76 year old female All Systems PM: A 10-system review of systems was performed and is negative for pertinent findings except as documented above in the HPI. - Constitutional Vitals: Temp Pulse Resp BP Pulse Ox 97.9 F 64 16 101/59 100 10/17/16 00:00 10/17/16 00:00 10/17/16 00:00 10/17/16 00:00 10/17/16 00:00 Internal Med - H&P Results - Labs CBC & Chem 7: 10/16/16 15:57 10/16/16 15:57 Labs: Urine 09/01/17 Range/Units 17:38 Urine Color Dark Yellow (Yellow) Urine Clarity Clear (Clear) Urine pH 6.0 (5.0-8.0) pH Units Ur Specific [place] 1.024 (1.010-1.025) Urine Protein Trace (Neg-Trace) mg/dL Urine Glucose (UA) 100 H (Normal) mg/dL - Attending Attestation I have seen and examined this patient in dependently. I have discussed with AIRCRAFT PNEUDRAULICS REPAIRER Ms. Chawla regarding the management plan. I have reviewed and agree with the documentation. Patient is sedated and on ventilation. Patient has a history of cirrhosis, presented with altered mental status, ammonia level high to 180, consider hepatic encephalopathy. We will continue lactulose through NG tube. Will also give one dose of lactulose enema. Follow-up ammonia level. Patient has UTI, will cover with Rocephin. Patient also shows fluid overload, will give low- dose Lasix, careful diuretics use because of CKD.
[2016-10-16] MEDS ORDERED: Furosemide 20 MG/2 ML VIAL IVP ONE (19:25)
[2016-10-16] MEDS: Chlorhexidine Rinse 15 ML MOUTHWASH MM SCH (20:38)
[2016-10-16] MEDS: Lacri-Lube 3.5 GM TUBE BOTH EYES SCH (20:38)
[2016-10-16] MEDS: Sucralfate 1 GM TABLET PO SCH (20:40)
[2016-10-16] MEDS ORDERED: 0.9 % Sodium Chloride 250 ML ONE (20:58)
[2016-10-16] MEDS ORDERED: Lactulose Oral Soln 20 GM/30 ML UDC PO SCH (21:00)
[2016-10-16] MEDS ORDERED: (Rifaximin [Xifaxan] 550 MG) PO SCH (21:00)
[2016-10-17] MEDS: Insulin LISPRO 300 UNITS/3 ML VIAL SQ SCH ×5 (00:36→23:52)
[2016-10-17] MEDS: Lacri-Lube 3.5 GM TUBE BOTH EYES SCH ×7 (00:38→23:51)
[2016-10-17] MEDS ORDERED: Lactulose 200 GM, Sodium Chloride IRRigation 700 ML RC ONE (01:16)
[2016-10-17] MEDS: Lactulose Oral Soln 20 GM/30 ML UDC PO SCH ×5 (03:53→23:50)
[2016-10-17 04:08] LABS: ABG Base Excess -3.2 mEq/L (-2.0 to 3.0); ABG HCO3 20 mEq/L (21-27); ABG Oxygen Saturation 92 % (95-98); ABG PCO2 30 mmHg (35-45); ABG PH 7.44 pH Units (7.32-7.45); ABG PO2 60 mmHg (85-104); ABG TCO2 21.3 mEq/L (20-26)
[2016-10-17 04:09] LABS: Blood Gas FiO2 40 %
[2016-10-17 05:29] LABS: Basophils % 0.5 %; Hemoglobin 8.1 g/dL (11.5-15.4); Immature Granulocytes % 0.5 % (0-4)
[2016-10-17 05:31] LABS: Eosinophils # 0.1 K/mcL (0.0-0.6); Hematocrit 26.1 % (35.3-44.9); Immature Platelets 5.1 % (1.1-6.1); Lymphocytes # 0.6 K/mcL (0.6-4.6); Lymphocytes % 9.4 %; Mean Corpuscular Hemoglobin 30.6 pg (28.0-33.3); Mean Corpuscular Volume 98.5 fL (83.0-100.0); Monocytes # 0.8 K/mcL (0.0-1.3); Monocytes % 12.9 %; Red Blood Count 2.65 M/mcL (3.82-4.97); Red Cell Distribution Width 17.6 % (11.5-14.5); Segmented Neutrophils % 74.7 %
[2016-10-17 05:32] LABS: Neutrophils # 4.6 K/mcL (1.6-8.9); Platelet Count 62 K/mcL (140-400)
[2016-10-17 05:41] LABS: Calcium 8.4 mg/dL (8.6-10.8); Potassium 5.1 mEq/L (3.5-4.5)
[2016-10-17] MEDS: Levothyroxine Sodium 100 MCG VIAL IVP SCH (05:57)
[2016-10-17] MEDS: Propofol 500 MG/50 ML INFUS..BTL IVC SCH ×2 (08:00→17:25)
--- NOTE | 2016-10-17 08:20 | Pulmonology Consult Note ---
<Alejandra Donato M - Last Filed: 10/17/16 09:20> Date of Encounter: 10/17/16 Medications and Allergies Cholecalciferol (Vitamin D3) [Vitamin D3] 50,000 unit PO WESA 11/02/14 [History] Magnesium Oxide [Magnesium] 400 mg PO BID 11/02/14 [History] Aspirin 81 mg PO DAILY 30 Days 11/08/14 [Rx] Ipratropium/Albuterol Neb [Duoneb] 3 ml IH Q4HR PRN 04/26/15 [History] Rifaximin [Xifaxan] 550 mg PO BID #60 tablet 05/01/15 [Rx] Cyanocobalamin (Vitamin B-12) [Vitamin B12] 1,000 mcg PO BID 09/03/15 [History] Zinc Sulfate 220 mg PO BID 09/03/15 [History] Insulin DETEMIR [Levemir Flextouch] 40 unit SQ BID 10/07/15 [History] Lactulose 15 ml PO TID MDD HEPATIC ENCEPALOPATHY 10/07/15 [History] Levothyroxine [Synthroid] 100 mcg PO QAM 10/07/15 [History] Oxygen 2 l NS AD 12/22/15 [History] Ondansetron ODT [Zofran ODT] 4 mg SL TID PRN 04/02/16 [History] raNITIdine HCl [Ranitidine HCl] 150 mg PO BID 04/02/16 [History] Diclofenac Sodium 1 appl TP QID PRN 04/09/16 [History] HYDROcodone/Acet 5/325 mg [[place] 5-325 mg] 1 tab PO Q8H PRN 07/14/16 [History] Pantoprazole Sodium [Protonix] 40 mg PO DAILY 07/14/16 [History] Folic Acid 1 mg PO DAILY #30 tablet 07/27/16 [Rx] FLUoxetine HCl [Prozac] 20 mg PO DAILY 09/09/16 [History] Sucralfate [Carafate] 1 gm PO BID 09/09/16 [History] Furosemide [Lasix] 20 mg PO DAILY #30 tablet 09/16/16 [Rx] Midodrine HCl 2.5 mg PO DAILY #0 09/16/16 [Rx] Propranolol LA (24 HR) [Inderal LA] 60 mg PO DAILY #30 cap.sa.24h 09/16/16 [Rx] 3 Allergy/AdvReac Type Severity Reaction Status Date / Time No Known Allergies Allergy Verified 09/09/16 11:41 All Systems: A 10-system review of systems was performed and is negative for pertinent findings except as documented above in the HPI. Physical Examination Vital Signs: Vital Signs, Last 4 Hours Temp Pulse Resp BP Pulse Ox 10/17/16 08:00 99.4 F 78 23 109/56 100 10/17/16 07:40 22 116/64 100 10/17/16 07:00 78 24 166/86 100 10/17/16 06:00 72 24 129/69 100 10/17/16 05:29 23 82/51 100 Ventilator Settings Ventilator Settings: Ventilator Settings, Last 8 Hours Ventilator Mode A/C Ventilator Mode A/C Ventilator Mode A/C Ventilator Mode A/C Ventilator Mode A/C Ventilator Mode A/C Ventilator Mode A/C Ventilator Tidal Volume 450 Setting Ventilator Tidal Volume 500 Setting Ventilator Tidal Volume 500 Setting Ventilator Tidal Volume 500 Setting Ventilator Tidal Volume 500 Setting Ventilator Tidal Volume 500 Setting Ventilator Tidal Volume 500 Setting Ventilator Respiratory Rate 12 Setting Ventilator Respiratory Rate 12 Setting Ventilator Respiratory Rate 12 Setting Ventilator Respiratory Rate 12 Setting Ventilator Respiratory Rate 12 Setting Ventilator Respiratory Rate 12 Setting Ventilator Respiratory Rate 12 Setting Actual Respiratory Rate 23 Actual Respiratory Rate 22 Actual Respiratory Rate 23 Actual Respiratory Rate 21 Actual Respiratory Rate 14 Positive End Expiratory 5 Pressure Positive End Expiratory 7 Pressure Positive End Expiratory 7 Pressure Positive End Expiratory 7 Pressure Positive End Expiratory 7 Pressure Positive End Expiratory 7 Pressure Positive End Expiratory 7 Pressure Peak Inspiratory Airway 11 Pressure Peak Inspiratory Airway 17 Pressure Peak Inspiratory Airway 19 Pressure Peak Inspiratory Airway 18 Pressure Peak Inspiratory Airway 21 Pressure Peak Inspiratory Airway 23 Pressure Results - Laboratory Findings CBC and BMP: 10/17/16 05:05 10/17/16 05:05 ABG ABG pH 7.44 pH Units (7.32-7.45) 10/17/16 03:39 ABG pCO2 30 mmHg (35-45) L 10/17/16 03:39 ABG pO2 60 mmHg (85-104) L 10/17/16 03:39 ABG O2 Saturation 92 % (95-98) L 10/17/16 03:39 PT/INR, D-dimer PT 13.9 Seconds (9.4-12.1) H 10/16/16 15:57 Abnormal lab findings: Abnormal lab results RBC 2.65 M/mcL (3.82-4.97) L 10/17/16 05:05 Hgb 8.1 g/dL (11.5-15.4) L 10/17/16 05:05 Hct 26.1 % (35.3-44.9) L 10/17/16 05:05 MCHC 31.0 g/dL (31.6-35.5) L 10/17/16 05:05 RDW 17.6 % (11.5-14.5) H 10/17/16 05:05 Plt Count 62 K/mcL (140-400) L 10/17/16 05:05 Platelet Estimate Decreased (Normal) L 10/16/16 15:57 PT 13.9 Seconds (9.4-12.1) H 10/16/16 15:57 ABG pCO2 30 mmHg (35-45) L 10/17/16 03:39 ABG pO2 60 mmHg (85-104) L 10/17/16 03:39 ABG HCO3 20 mEq/L (21-27) L 10/17/16 03:39 ABG O2 Saturation 92 % (95-98) L 10/17/16 03:39 ABG Base Excess -3.2 mEq/L (-2.0 to 3.0) L 10/17/16 03:39 Potassium 5.1 mEq/L (3.5-4.5) H 10/17/16 05:05 Chloride 114 mEq/L (98-109) H 10/17/16 05:05 BUN 53 mg/dL (7-20) H 10/17/16 05:05 Creatinine 2.30 mg/dL (0.57-1.11) H 10/17/16 05:05 Est GFR ( Amer) 25 (> 60) L 10/17/16 05:05 Est GFR (Non-Af Amer) 21 (> 60) L 10/17/16 05:05 Glucose 172 mg/dL (70-99) H 10/17/16 05:05 POC Glucose 318 (58-89) H 10/16/16 19:09 Calculated Osmolality 310 (280-300) H 10/17/16 05:05 Lactic Acid 2.5 mmol/L (0.5-2.2) H 10/17/16 05:05 Calcium 8.4 mg/dL (8.6-10.8) L 10/17/16 05:05 Total Bilirubin 1.8 mg/dL (0.2-1.2) H 10/16/16 15:57 Direct Bilirubin 0.8 mg/dL (0.0-0.5) H 10/16/16 15:57 Alkaline Phosphatase 162 Units/L (38-126) H 10/16/16 15:57 Ammonia 96 mcmol/L (18-72) H 10/17/16 05:05 Urine Glucose (UA) 100 mg/dL (Normal) H 10/16/16 17:38 Ur Leukocyte Esterase Small (Negative) H 10/16/16 17:38 Urine Microscopic WBC 5-15 per hpf (0-3) H 10/16/16 17:38 Ur Squamous Epith Cells Many per lpf (None-Few) H 10/16/16 17:38 Urine Yeast Moderate per hpf (None Seen) H 10/16/16 17:38 Ur Culture Indicated? YES (NO) A 10/16/16 17:38 Urine Opiates Screen Positive ng/mL (Ytxhse=203) H 10/16/16 17:38 U Benzodiazepines Scrn Positive ng/mL (Iazrte=036) H 10/16/16 17:38 - Clinical Findings Intake & Output: Intake & Output 10/16/16 10/17/16 10/17/16 23:59 07:59 15:59 Intake Total 260 / 1260 Output Total 325 / 325 200 / 200 Balance -65 / 935 -200 / -200 Weight 81.2 kg 81 kg Consult Discharge Plan - Plan Referrals: NONE,PCP [Primary Care Provider] - - Attending Attestation I examined this patient and my medical decision-making was reviewed with the Resident Physician. I agree with the documented findings, disposition and treatment plan as described except to the extent set forth below. Patient seen and examined. Labs, radiology, chart personally reviewed. 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 Patient has higher level of ammonia and she is being treated appropriately. Sedation was stopped, but she was not following Any commands and continue treatment with lactulose and will add rifaximin. Pulmonary: Acceptable oxygenation and ventilation. Patient was intubated for short-term and on the son around will discuss more and no plan for spontaneous breathing trial. I have changed her vent setting due to mainly respiratory alkalosis and risk of seizures. I have decreased her tidal volume and lowered her PEEP. Cardiovascular: Relatively stable GI: Nutrition per dietary and GI prophylaxis per routine. Patient with significant history of liver disease and extremely poor prognosis. Heme: DVT prophylaxis per routine. Mechanical ID: Continue antibiotics and plan to de-escalation. Possible aspiration pneumonia. Renal; urine out put and renal funtion reviewed Endorcine: blood glucose is monitored Lines: all lines checked and no evidence of infections Skin: skin care to prevent pressure ulcers per nursing routine care Extremely poor prognosis, supportive care for now. The high probability of a clinically significant, sudden or life threatening deterioration of the cardiac, pulmonary and hepatic system) required my full and direct attention, intervention and personal management. The aggregate critical care time was 35 minutes. This time is includes the following: Data Review and interpretation, Patient assessment and monitoring of vital signs, Documentation and Medication orders and management <Adia Manuel - Last Filed: 10/17/16 13:09> Date of Encounter: 10/17/16 Time of Encounter: 07:00 Assessment and Plan (1) Hepatic encephalopathy Current Visit: Yes Status: Acute Patient presented to the ER with a GCS of 4. sCT of her head was negative for any endocrine abnormalities. Her ammonia level recheck this AM was 96. We will continue with lactulose and added rifaximine. CPAP trial was failed overnight. Patient still currently intubated. Will re-try CPAP trial later tonight or early tomorrow morning. (2) Hyperkalemia Current Visit: Yes Status: Acute Patient currently receiving IV lasix. Will continue to monitor level to ensure it is decreasing. (3) Change in mental status Current Visit: Yes Status: Acute Patient came in acutely altered due to hepatic encephalopathy. Patient is currently intubated. Failed CPAP trial last evening. Will attempt later tonight or early tomorrow again. Qualifiers: Altered mental status type: unspecified Qualified Code(s): R41.82 - Altered mental status, unspecified (4) DVT prophylaxis Current Visit: Yes Status: Acute SCDs patient's platelets are 63 History of Present Illness Reason for consult: hypoxemia (Intubated) History of present illness: 76 year old female history of ultiple comorbidities including ELLIOTT, cirrhosis, and recurrent hepatic encephalopathy admitted for hepatic encephalopathy. Patient is intubated at this time so history has been obtained from the chart. According to the son, the patient has been having increased lethargy over the past three days. Yesterday she was unable to be aroused or awoken and was brought to the ED via EMS.When the patient presented to the emergency department her GCS was 4 and was intubated to protect her airway. CT head WNL. Ammonia level was 183. Patient was given lactulose and admitted to the ICU for further treatment and evaluation. Presently the patient is sedated and does not respond to any verbal tactile or painful stimuli. Overnight the patient was tried on a CPAP trial and failed. Patient remains intubated at this time. We will continue the antibiotic treatment in the ICU and continue to try to wean her off of sedation and intubation. Lactulose and rifaximin currently being used to address the ammonia level. Past Med Surg Social Fam HX - Past Medical History Medical history: arthritis, cirrhosis, COPD, dementia, diabetes, GERD, glaucoma , hepatitis, hyperlipidemia, hypertension, liver disease, osteoporosis, renal disease, thyroid disease Psychiatric history: no psych history - Past Surgical History Surgical History: herniorrhaphy - Social History Smoking Status: Never smoker Smokeless Tobacco Status: No Alcohol use: none Drug use: none - Family History Sister Adopted: No Living Status: Hx Family Cardiac Disorders: Yes Hx Family Respiratory Disorders: Yes Hx Family Cancer: Yes Hx Family GI Disorders: Yes (cirrhosis) Hx Family Endocrine Disorder: No Hx Family Neuromuscular Disorders: No Hx Family Neurologic Disorders: No Hx Family HEENT Disorders: No Hx Family Autoimmune Disorders: No Mother Adopted: No Family Member Ethnicity: Non- Living Status: Hx Family Cardiac Disorders: Yes Father Hx Family Cardiac Disorders: Yes (SD) Son Adopted: No Family Member Ethnicity: Non- Living Status: Still Living Hx Family Cardiac Disorders: Yes (HTN) Hx Family Respiratory Disorders: No Hx Family Cancer: No Hx Family GI Disorders: No Hx Family Endocrine Disorder: No Hx Family Neuromuscular Disorders: No Hx Family Neurologic Disorders: No Hx Family HEENT Disorders: No Hx Family Autoimmune Disorders: No ROS unobtainable: due to endotracheal tube All Systems: A 10-system review of systems was performed and is negative for pertinent findings except as documented above in the HPI. Physical Examination Vital Signs: Vital Signs, Last 4 Hours Pulse Resp BP Pulse Ox 10/17/16 07:40 22 116/64 100 10/17/16 07:00 78 24 166/86 100 10/17/16 06:00 72 24 129/69 100 10/17/16 05:29 23 82/51 100 10/17/16 05:00 68 21 82/51 100 General appearance: other (intubated and sedated) Eyes: nonicteric ENT: oropharynx moist Neck: supple, no JVD Effort: normal Inspection: normal Auscultation: bilateral: clear Cardiovascular: regular rate and rhythm Gastrointestinal: normoactive bowel sounds, other (ascites noted, patient has an incisional hernia midline to the right and superior to the umbilicus; easily reducible) Integumentary: decubitus ulcer (stage 2 on the lumbar region), other (multiple eccymosis noted in upper and lower extremities bilaterally) Extremities: pink and warm, pulses normal Musculoskeletal: no deformities unable to assess due to mental status Ventilator Settings Ventilator Settings: Ventilator Settings, Last 8 Hours Ventilator Mode A/C Ventilator Mode A/C Ventilator Mode A/C Ventilator Mode A/C Ventilator Mode A/C Ventilator Mode A/C Ventilator Tidal Volume 500 Setting Ventilator Tidal Volume 500 Setting Ventilator Tidal Volume 500 Setting Ventilator Tidal Volume 500 Setting Ventilator Tidal Volume 500 Setting Ventilator Tidal Volume 500 Setting Ventilator Respiratory Rate 12 Setting Ventilator Respiratory Rate 12 Setting Ventilator Respiratory Rate 12 Setting Ventilator Respiratory Rate 12 Setting Ventilator Respiratory Rate 12 Setting Ventilator Respiratory Rate 12 Setting Actual Respiratory Rate 22 Actual Respiratory Rate 23 Actual Respiratory Rate 21 Actual Respiratory Rate 14 Positive End Expiratory 7 Pressure Positive End Expiratory 7 Pressure Positive End Expiratory 7 Pressure Positive End Expiratory 7 Pressure Positive End Expiratory 7 Pressure Positive End Expiratory 7 Pressure Peak Inspiratory Airway 17 Pressure Peak Inspiratory Airway 19 Pressure Peak Inspiratory Airway 18 Pressure Peak Inspiratory Airway 21 Pressure Peak Inspiratory Airway 23 Pressure Results - Laboratory Findings CBC and BMP: 10/17/16 05:05 10/17/16 05:05 ABG ABG pH 7.44 pH Units (7.32-7.45) 10/17/16 03:39 ABG pCO2 30 mmHg (35-45) L 10/17/16 03:39 ABG pO2 60 mmHg (85-104) L 10/17/16 03:39 ABG O2 Saturation 92 % (95-98) L 10/17/16 03:39 PT/INR, D-dimer PT 13.9 Seconds (9.4-12.1) H 10/16/16 15:57 Abnormal lab findings: Abnormal lab results RBC 2.65 M/mcL (3.82-4.97) L 10/17/16 05:05 Hgb 8.1 g/dL (11.5-15.4) L 10/17/16 05:05 Hct 26.1 % (35.3-44.9) L 10/17/16 05:05 MCHC 31.0 g/dL (31.6-35.5) L 10/17/16 05:05 RDW 17.6 % (11.5-14.5) H 10/17/16 05:05 Plt Count 62 K/mcL (140-400) L 10/17/16 05:05 Platelet Estimate Decreased (Normal) L 10/16/16 15:57 PT 13.9 Seconds (9.4-12.1) H 10/16/16 15:57 ABG pCO2 30 mmHg (35-45) L 10/17/16 03:39 ABG pO2 60 mmHg (85-104) L 10/17/16 03:39 ABG HCO3 20 mEq/L (21-27) L 10/17/16 03:39 ABG O2 Saturation 92 % (95-98) L 10/17/16 03:39 ABG Base Excess -3.2 mEq/L (-2.0 to 3.0) L 10/17/16 03:39 Potassium 5.1 mEq/L (3.5-4.5) H 10/17/16 05:05 Chloride 114 mEq/L (98-109) H 10/17/16 05:05 BUN 53 mg/dL (7-20) H 10/17/16 05:05 Creatinine 2.30 mg/dL (0.57-1.11) H 10/17/16 05:05 Est GFR ( Amer) 25 (> 60) L 10/17/16 05:05 Est GFR (Non-Af Amer) 21 (> 60) L 10/17/16 05:05 Glucose 172 mg/dL (70-99) H 10/17/16 05:05 POC Glucose 318 (58-89) H 10/16/16 19:09 Calculated Osmolality 310 (280-300) H 10/17/16 05:05 Lactic Acid 2.5 mmol/L (0.5-2.2) H 10/17/16 05:05 Calcium 8.4 mg/dL (8.6-10.8) L 10/17/16 05:05 Total Bilirubin 1.8 mg/dL (0.2-1.2) H 10/16/16 15:57 Direct Bilirubin 0.8 mg/dL (0.0-0.5) H 10/16/16 15:57 Alkaline Phosphatase 162 Units/L (38-126) H 10/16/16 15:57 Ammonia 96 mcmol/L (18-72) H 10/17/16 05:05 Urine Glucose (UA) 100 mg/dL (Normal) H 10/16/16 17:38 Ur Leukocyte Esterase Small (Negative) H 10/16/16 17:38 Urine Microscopic WBC 5-15 per hpf (0-3) H 10/16/16 17:38 Ur Squamous Epith Cells Many per lpf (None-Few) H 10/16/16 17:38 Urine Yeast Moderate per hpf (None Seen) H 10/16/16 17:38 Ur Culture Indicated? YES (NO) A 10/16/16 17:38 Urine Opiates Screen Positive ng/mL (Hwrnmb=518) H 10/16/16 17:38 U Benzodiazepines Scrn Positive ng/mL (Gxjasy=214) H 10/16/16 17:38 - Diagnostic Findings Chest x-ray: report reviewed, image reviewed - Clinical Findings Intake & Output: Intake & Output 10/16/16 10/17/16 10/17/16 23:59 07:59 15:59 Intake Total 260 / 1260 Output Total 325 / 325 200 / 200 Balance -65 / 935 -200 / -200 Weight 81.2 kg 81 kg
[2016-10-17] MEDS: Chlorhexidine Rinse 15 ML MOUTHWASH MM SCH ×2 (10:29→20:16)
[2016-10-17] MEDS: Pantoprazole 40 MG VIAL IVPB SCH (10:29)
[2016-10-17] MEDS: Furosemide 20 MG/2 ML VIAL IVP SCH (10:30)
[2016-10-17] MEDS: Aspirin 81 MG TAB.CHEW PO SCH (10:34)
[2016-10-17] MEDS: Sucralfate 1 GM TABLET PO SCH ×2 (10:34→20:16)
[2016-10-17] MEDS: FLUoxetine 20 MG CAPSULE PO SCH (10:34)
[2016-10-17] MEDS ORDERED: Ampicillin/Sulbactam 3,000 MG in 0.9 % Sodium Chloride Mini Bag 100 ML IVPB SCH (12:00)
[2016-10-17] MEDS: Ampicillin/Sulbactam 3,000 MG in 0.9 % Sodium Chloride Mini Bag 100 ML IVPB SCH (23:50)
[2016-10-18] MEDS: Propofol 500 MG/50 ML INFUS..BTL IVC SCH (02:18)
[2016-10-18] MEDS: Lacri-Lube 3.5 GM TUBE BOTH EYES SCH ×5 (04:03→19:27)
[2016-10-18 04:04] LABS: ABG Base Excess -4.4 mEq/L (-2.0 to 3.0); ABG HCO3 19 mEq/L (21-27); ABG Oxygen Saturation 98 % (95-98); ABG PCO2 29 mmHg (35-45); ABG PH 7.43 pH Units (7.32-7.45); ABG PO2 101 mmHg (85-104); ABG TCO2 20.1 mEq/L (20-26)
[2016-10-18 05:29] LABS: Basophils % 0.5 %; Eosinophils # 0.1 K/mcL (0.0-0.6); Eosinophils % 1.2 %; Hematocrit 25.1 % (35.3-44.9); Hemoglobin 7.9 g/dL (11.5-15.4); Immature Granulocytes % 0.5 % (0-4); Lymphocytes # 0.7 K/mcL (0.6-4.6); Lymphocytes % 11.3 %; Mean Corpuscular HGB Conc 31.5 g/dL (31.6-35.5); Mean Corpuscular Hemoglobin 30.9 pg (28.0-33.3); Monocytes # 0.8 K/mcL (0.0-1.3); Monocytes % 11.7 %; Red Blood Count 2.56 M/mcL (3.82-4.97); Segmented Neutrophils % 74.8 %
[2016-10-18 05:30] LABS: Neutrophils # 4.9 K/mcL (1.6-8.9); Platelet Count 55 K/mcL (140-400)
[2016-10-18 05:40] LABS: Albumin/Globulin Ratio 0.9 (1.1-2.2); Bilirubin,Total 1.8 mg/dL (0.2-1.2); Calcium 8.3 mg/dL (8.6-10.8); Globulin 3.1 g/dL (2.4-3.5); Potassium 4.4 mEq/L (3.5-4.5)
[2016-10-18 05:41] LABS: Albumin 2.9 g/dL (3.5-5.0)
[2016-10-18] MEDS: Lactulose Oral Soln 20 GM/30 ML UDC PO SCH ×3 (06:13→17:49)
[2016-10-18] MEDS: Levothyroxine Sodium 100 MCG VIAL IVP SCH (06:13)
[2016-10-18] MEDS: Insulin LISPRO 300 UNITS/3 ML VIAL SQ SCH ×3 (06:14→17:55)
[2016-10-18] MEDS: Chlorhexidine Rinse 15 ML MOUTHWASH MM SCH ×2 (09:15→19:27)
--- NOTE | 2016-10-18 10:09 | Pulmonology Progress Note ---
<Marcos Segura - Last Filed: 10/18/16 10:02> Date of Encounter: 10/18/16 Time of Encounter: 09:30 Assessment and Plan (1) Hepatic encephalopathy Current Visit: No Status: Acute No ammonia level measured today but was downtrending as of yesterday (183<96). Patient is more alert today and able to follow verbal commands. Patient was extubated this a.m. and currently tolerating CPAP and NC at 3L. VS are stable. Her son is notified and will be here later today to decide code status. Speech therapy will perform swallow test later today. Keep patient on NPO for now. Continue to monitor with VS and A.M labs. Continue with Rifaximin therapy. Continue comfort care. Continue lasix. Monitor weight changes. Patient continues to be DNR-CCA. (2) Cirrhosis of liver with ascites Current Visit: No Status: Chronic Patient is more alert today. Continue rifaximin therapy. Monitor ammonia level as needed. Qualifiers: Hepatic cirrhosis type: unspecified hepatic cirrhosis Qualified Code(s): K74.60 - Unspecified cirrhosis of liver (3) Chronic kidney disease, stage IV (severe) Current Visit: No Status: Acute Kidney function worsening. Avoid nephrotoxins. Continue strick I/Os. Monitor daily weights. Continue lasix daily. (4) COPD (chronic obstructive pulmonary disease) Current Visit: No Status: Chronic Patient has clear lung sounds bilaterally. Continue with bronchodilators and NC. Monitor with VS and SPO2. Qualifiers: COPD type: unspecified COPD Qualified Code(s): J44.9 - Chronic obstructive pulmonary disease, unspecified (5) Fluid overload Current Visit: Yes Status: Acute Patient's lungs are clear. She has minimal abdominal distention. Kidney function worsening. Continue with lasix 20mg IVP daily. Qualifiers: Qualified Code(s): E87.70 - Fluid overload, unspecified (6) DVT prophylaxis Current Visit: Yes Status: Acute Subjective Principal diagnosis: Hepatic Encephalopathy Interval history: Patient has become more responsive and able to follow commands. After speaking with her son, patient is extubated today at 850. Currently on NC 3LPM. Patient' s son has been notified and he states that he will be at unit today to discuss code status. Objective PUL Vital signs: Last Vital Signs Temp 97.1 F L 10/18/16 08:00 Pulse 54 09/03/17 08:00 Resp 18 10/18/16 08:18 BP 110/43 10/18/16 08:18 Pulse Ox 100 10/18/16 08:18 General appearance: appears uncomfortable, other (chronically ill ) Eyes: icteric Effort: normal Auscultation: bilateral: clear Cardiovascular: regular rate and rhythm Gastrointestinal: normoactive bowel sounds, non-distended Integumentary: erythema (throughout whole body), other normal mental status Ventilator Settings Ventilator Settings: Ventilator Settings, Last 8 Hours Ventilator Mode CPAP Ventilator Mode CPAP Ventilator Mode A/C Ventilator Mode A/C Ventilator Mode A/C Ventilator Mode VC+ Ventilator Mode A/C Ventilator Tidal Volume 450 Setting Ventilator Tidal Volume 450 Setting Ventilator Tidal Volume 450 Setting Ventilator Tidal Volume 450 Setting Ventilator Tidal Volume 450 Setting Ventilator Tidal Volume 450 Setting Ventilator Respiratory Rate 12 Setting Ventilator Respiratory Rate 12 Setting Ventilator Respiratory Rate 12 Setting Ventilator Respiratory Rate 12 Setting Ventilator Respiratory Rate 12 Setting Actual Respiratory Rate 18 Actual Respiratory Rate 18 Actual Respiratory Rate 18 Actual Respiratory Rate 19 Actual Respiratory Rate 19 Positive End Expiratory 5 Pressure Positive End Expiratory 5 Pressure Positive End Expiratory 5 Pressure Positive End Expiratory 5 Pressure Positive End Expiratory 5 Pressure Positive End Expiratory 5 Pressure Positive End Expiratory 5 Pressure Peak Inspiratory Airway 14 Pressure Peak Inspiratory Airway 14 Pressure Peak Inspiratory Airway 13 Pressure Peak Inspiratory Airway 11 Pressure Peak Inspiratory Airway 11 Pressure Peak Inspiratory Airway 11 Pressure Results - Laboratory Findings CBC and BMP: 10/18/16 05:20 10/18/16 05:20 ABG ABG pH 7.43 pH Units (7.32-7.45) 10/18/16 03:45 ABG pCO2 29 mmHg (35-45) L 10/18/16 03:45 ABG pO2 101 mmHg (85-104) 10/18/16 03:45 ABG O2 Saturation 98 % (95-98) 10/18/16 03:45 PT/INR, D-dimer PT 13.9 Seconds (9.4-12.1) H 10/16/16 15:57 Abnormal lab findings: Abnormal lab results RBC 2.56 M/mcL (3.82-4.97) L 10/18/16 05:20 Hgb 7.9 g/dL (11.5-15.4) L 10/18/16 05:20 Hct 25.1 % (35.3-44.9) L 10/18/16 05:20 MCHC 31.5 g/dL (31.6-35.5) L 10/18/16 05:20 RDW 18.0 % (11.5-14.5) H 10/18/16 05:20 Plt Count 55 K/mcL (140-400) L 10/18/16 05:20 Platelet Estimate Decreased (Normal) L 10/16/16 15:57 PT 13.9 Seconds (9.4-12.1) H 10/16/16 15:57 ABG pCO2 29 mmHg (35-45) L 10/18/16 03:45 ABG HCO3 19 mEq/L (21-27) L 10/18/16 03:45 ABG Base Excess -4.4 mEq/L (-2.0 to 3.0) L 10/18/16 03:45 Chloride 112 mEq/L (98-109) H 10/18/16 05:20 BUN 60 mg/dL (7-20) H 10/18/16 05:20 Creatinine 2.68 mg/dL (0.57-1.11) H 10/18/16 05:20 Est GFR ( Amer) 21 (> 60) L 10/18/16 05:20 Est GFR (Non-Af Amer) 17 (> 60) L 10/18/16 05:20 Glucose 172 mg/dL (70-99) H 10/18/16 05:20 POC Glucose 189 (58-89) H 10/17/16 23:22 Calculated Osmolality 313 (280-300) H 10/18/16 05:20 Lactic Acid 2.5 mmol/L (0.5-2.2) H 10/17/16 05:05 Calcium 8.3 mg/dL (8.6-10.8) L 10/18/16 05:20 Total Bilirubin 1.8 mg/dL (0.2-1.2) H 10/18/16 05:20 Direct Bilirubin 0.8 mg/dL (0.0-0.5) H 10/16/16 15:57 Ammonia 96 mcmol/L (18-72) H 10/17/16 05:05 Albumin 2.9 g/dL (3.5-5.0) L D 10/18/16 05:20 Albumin/Globulin Ratio 0.9 (1.1-2.2) L 10/18/16 05:20 Urine Glucose (UA) 100 mg/dL (Normal) H 10/16/16 17:38 Ur Leukocyte Esterase Small (Negative) H 10/16/16 17:38 Urine Microscopic WBC 5-15 per hpf (0-3) H 10/16/16 17:38 Ur Squamous Epith Cells Many per lpf (None-Few) H 10/16/16 17:38 Urine Yeast Moderate per hpf (None Seen) H 10/16/16 17:38 Ur Culture Indicated? YES (NO) A 10/16/16 17:38 Urine Opiates Screen Positive ng/mL (Qctrie=859) H 10/16/16 17:38 U Benzodiazepines Scrn Positive ng/mL (Ejpltc=028) H 10/16/16 17:38 - Microbiology Findings Microbiology Findings: Microbiology, Last 48 Hours 10/16/16 17:38 Urine Culture - Final Urine,Clean Catch No growth. - Clinical Findings Intake & Output: Intake & Output 10/17/16 10/18/16 10/18/16 23:59 07:59 15:59 Intake Total 140 / 140 178 / 178 Output Total 420 / 420 100 / 100 25 / 25 Balance -280 / -280 78 / 78 -25 / -25 Weight 81.7 kg Consult Discharge Plan - Plan Referrals: NONE,PCP [Primary Care Provider] - <Alejandra Donato - Last Filed: 10/18/16 10:42> Date of Encounter: 10/18/16 Objective PUL Vital signs: Last Vital Signs Temp 97.1 F L 10/18/16 08:00 Pulse 63 10/18/16 10:00 Resp 63 10/18/16 10:00 BP 111/51 10/18/16 10:00 Pulse Ox 100 10/18/16 10:00 Ventilator Settings Ventilator Settings: Ventilator Settings, Last 8 Hours Ventilator Mode CPAP Ventilator Mode CPAP Ventilator Mode A/C Ventilator Mode A/C Ventilator Mode A/C Ventilator Mode VC+ Ventilator Mode A/C Ventilator Tidal Volume 450 Setting Ventilator Tidal Volume 450 Setting Ventilator Tidal Volume 450 Setting Ventilator Tidal Volume 450 Setting Ventilator Tidal Volume 450 Setting Ventilator Tidal Volume 450 Setting Ventilator Respiratory Rate 12 Setting Ventilator Respiratory Rate 12 Setting Ventilator Respiratory Rate 12 Setting Ventilator Respiratory Rate 12 Setting Ventilator Respiratory Rate 12 Setting Actual Respiratory Rate 18 Actual Respiratory Rate 18 Actual Respiratory Rate 18 Actual Respiratory Rate 19 Actual Respiratory Rate 19 Positive End Expiratory 5 Pressure Positive End Expiratory 5 Pressure Positive End Expiratory 5 Pressure Positive End Expiratory 5 Pressure Positive End Expiratory 5 Pressure Positive End Expiratory 5 Pressure Positive End Expiratory 5 Pressure Peak Inspiratory Airway 14 Pressure Peak Inspiratory Airway 14 Pressure Peak Inspiratory Airway 13 Pressure Peak Inspiratory Airway 11 Pressure Peak Inspiratory Airway 11 Pressure Peak Inspiratory Airway 11 Pressure Results - Laboratory Findings CBC and BMP: 10/18/16 05:20 10/18/16 05:20 ABG ABG pH 7.43 pH Units (7.32-7.45) 10/18/16 03:45 ABG pCO2 29 mmHg (35-45) L 10/18/16 03:45 ABG pO2 101 mmHg (85-104) 10/18/16 03:45 ABG O2 Saturation 98 % (95-98) 10/18/16 03:45 PT/INR, D-dimer PT 13.9 Seconds (9.4-12.1) H 10/16/16 15:57 Abnormal lab findings: Abnormal lab results RBC 2.56 M/mcL (3.82-4.97) L 10/18/16 05:20 Hgb 7.9 g/dL (11.5-15.4) L 10/18/16 05:20 Hct 25.1 % (35.3-44.9) L 10/18/16 05:20 MCHC 31.5 g/dL (31.6-35.5) L 10/18/16 05:20 RDW 18.0 % (11.5-14.5) H 10/18/16 05:20 Plt Count 55 K/mcL (140-400) L 10/18/16 05:20 Platelet Estimate Decreased (Normal) L 10/16/16 15:57 PT 13.9 Seconds (9.4-12.1) H 10/16/16 15:57 ABG pCO2 29 mmHg (35-45) L 10/18/16 03:45 ABG HCO3 19 mEq/L (21-27) L 10/18/16 03:45 ABG Base Excess -4.4 mEq/L (-2.0 to 3.0) L 10/18/16 03:45 Chloride 112 mEq/L (98-109) H 10/18/16 05:20 BUN 60 mg/dL (7-20) H 10/18/16 05:20 Creatinine 2.68 mg/dL (0.57-1.11) H 10/18/16 05:20 Est GFR ( Amer) 21 (> 60) L 10/18/16 05:20 Est GFR (Non-Af Amer) 17 (> 60) L 10/18/16 05:20 Glucose 172 mg/dL (70-99) H 10/18/16 05:20 POC Glucose 189 (58-89) H 10/17/16 23:22 Calculated Osmolality 313 (280-300) H 10/18/16 05:20 Lactic Acid 2.5 mmol/L (0.5-2.2) H 10/17/16 05:05 Calcium 8.3 mg/dL (8.6-10.8) L 10/18/16 05:20 Total Bilirubin 1.8 mg/dL (0.2-1.2) H 10/18/16 05:20 Direct Bilirubin 0.8 mg/dL (0.0-0.5) H 10/16/16 15:57 Ammonia 96 mcmol/L (18-72) H 10/17/16 05:05 Albumin 2.9 g/dL (3.5-5.0) L D 10/18/16 05:20 Albumin/Globulin Ratio 0.9 (1.1-2.2) L 10/18/16 05:20 Urine Glucose (UA) 100 mg/dL (Normal) H 10/16/16 17:38 Ur Leukocyte Esterase Small (Negative) H 10/16/16 17:38 Urine Microscopic WBC 5-15 per hpf (0-3) H 10/16/16 17:38 Ur Squamous Epith Cells Many per lpf (None-Few) H 10/16/16 17:38 Urine Yeast Moderate per hpf (None Seen) H 10/16/16 17:38 Ur Culture Indicated? YES (NO) A 10/16/16 17:38 Urine Opiates Screen Positive ng/mL (Fseale=563) H 10/16/16 17:38 U Benzodiazepines Scrn Positive ng/mL (Iopqtf=590) H 10/16/16 17:38 - Microbiology Findings Microbiology Findings: Microbiology, Last 48 Hours 10/16/16 17:38 Urine Culture - Final Urine,Clean Catch No growth. - Clinical Findings Intake & Output: Intake & Output 10/17/16 10/18/16 10/18/16 23:59 07:59 15:59 Intake Total 140 / 140 178 / 178 Output Total 420 / 420 100 / 100 Balance -280 / -280 78 / 78 -25 / -25 Weight 81.7 kg - Attending Attestation I examined this patient and my medical decision-making was reviewed with the Resident Physician. I agree with the documented findings, disposition and treatment plan as described except to the extent set forth below. Patient seen and examined. Labs, radiology, chart personally reviewed. 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 Pulmonary: Acceptable oxygenation and ventilation. Before extubation I discussed the plan with the son and we both agreed about extubation. Perhaps palliative care can follow-up on her CODE STATUS. Cardiovascular: stable GI: Nutrition per dietary and GI prophylaxis per routine. Patient with liver cirrhosis and continue lactulose and rifaximin. Heme: DVT prophylaxis per routine with mechanical ID: Continue antibiotics and plan to de-escalation Renal; urine out put and renal funtion reviewed Endorcine: blood glucose is monitored Lines: all lines checked and no evidence of infections Skin: skin care to prevent pressure ulcers per nursing routine care Overall prognosis is very poor
[2016-10-18] MEDS: Aspirin 81 MG TAB.CHEW PO SCH (10:44)
[2016-10-18] MEDS: Sucralfate 1 GM TABLET PO SCH ×2 (10:44→19:27)
[2016-10-18] MEDS: Pantoprazole 40 MG VIAL IVPB SCH (10:45)
[2016-10-18] MEDS: Furosemide 20 MG/2 ML VIAL IVP SCH (10:45)
[2016-10-18] MEDS: FLUoxetine 20 MG CAPSULE PO SCH (10:45)
[2016-10-18] MEDS: Ampicillin/Sulbactam 3,000 MG in 0.9 % Sodium Chloride Mini Bag 100 ML IVPB SCH (12:43)
[2016-10-19] MEDS: Insulin LISPRO 300 UNITS/3 ML VIAL SQ SCH ×4 (00:25→18:27)
[2016-10-19] MEDS: Lactulose Oral Soln 20 GM/30 ML UDC PO SCH ×5 (00:26→23:25)
[2016-10-19] MEDS: Lacri-Lube 3.5 GM TUBE BOTH EYES SCH ×2 (00:26→04:42)
[2016-10-19 05:13] LABS: Albumin 2.9 g/dL (3.5-5.0); Bilirubin,Total 1.8 mg/dL (0.2-1.2); Calcium 8.4 mg/dL (8.6-10.8); Total Protein 5.9 g/dL (6.0-8.3)
[2016-10-19] MEDS: Levothyroxine Sodium 100 MCG VIAL IVP SCH (07:14)
[2016-10-19 08:14] LABS: Calcium 8.4 mg/dL (8.6-10.8); Potassium 3.9 mEq/L (3.5-4.5)
--- NOTE | 2016-10-19 08:24 | Pulmonology Progress Note ---
<Adia Manuel - Last Filed: 10/19/16 10:15> Date of Encounter: 10/19/16 Time of Encounter: 07:00 Assessment and Plan (1) Hepatic encephalopathy Current Visit: Yes Status: Acute Patient able to follow verbal commands but is still not at baseline mental function per son. Son has changed patient to DNR/DNI. Will consult palliative care as well. Continue to monitor patient's mental status and frequent neuro exams. (2) Hyperkalemia Current Visit: Yes Status: Acute Stabalized and WNL now. Lasix discontinued today. (3) Change in mental status Current Visit: Yes Status: Acute Patient still slightly altered. Unable to receive lactulose or rifaximin d/t NPO status. Will consult speech to determine swallow study results so we can resume treatment. Patient better than at admission but not at baseline according to son. Qualifiers: Altered mental status type: unspecified Qualified Code(s): R41.82 - Altered mental status, unspecified (4) DVT prophylaxis Current Visit: Yes Status: Acute SCDs placed due to low platelet count Subjective Principal diagnosis: Hepatic Encephalopathy Interval history: Patient was extubated yesterday with no difficulty. Patient's mental status is improving but is still slightly altered. Her kidney function continues to decline so we will discontinue the lasix and add albumin. Patient unable to take lactulose and rifaximin due to NPO status. Speech has been consulted to determine if she can be cleared for a diet or to swallow pills. Will continue to monitor patient's need for tap of ascites. Stable at this time. Son agreed to keep patient DNR/DNI yesterday. Will speak with son about possible palliative consult. Objective PUL Vital signs: Last Vital Signs Temp 97.5 F L 10/19/16 07:44 Pulse 71 10/19/16 08:00 Resp 20 10/19/16 08:00 BP 101/53 10/19/16 08:00 Pulse Ox 100 10/19/16 08:00 General appearance: no acute distress Eyes: nonicteric ENT: oropharynx moist Neck: supple Effort: normal Auscultation: bilateral: other (bibasilar crackles) Cardiovascular: regular rate and rhythm Gastrointestinal: soft, non-tender, other (distended abdomen with umbilical hernia noted) Integumentary: other (multiple superficial ecchymosis on bilateral upper and lower extremities) Extremities: no cyanosis, no edema Musculoskeletal: no deformities Gait: normal posture unable to assess due to mental status Results - Laboratory Findings CBC and BMP: 10/18/16 05:20 10/19/16 07:55 ABG ABG pH 7.43 pH Units (7.32-7.45) 10/18/16 03:45 ABG pCO2 29 mmHg (35-45) L 10/18/16 03:45 ABG pO2 101 mmHg (85-104) 10/18/16 03:45 ABG O2 Saturation 98 % (95-98) 10/18/16 03:45 PT/INR, D-dimer PT 13.9 Seconds (9.4-12.1) H 10/16/16 15:57 Abnormal lab findings: Abnormal lab results RBC 2.56 M/mcL (3.82-4.97) L 10/18/16 05:20 Hgb 7.9 g/dL (11.5-15.4) L 10/18/16 05:20 Hct 25.1 % (35.3-44.9) L 10/18/16 05:20 MCHC 31.5 g/dL (31.6-35.5) L 10/18/16 05:20 RDW 18.0 % (11.5-14.5) H 10/18/16 05:20 Plt Count 55 K/mcL (140-400) L 10/18/16 05:20 Platelet Estimate Decreased (Normal) L 10/16/16 15:57 PT 13.9 Seconds (9.4-12.1) H 10/16/16 15:57 ABG pCO2 29 mmHg (35-45) L 10/18/16 03:45 ABG HCO3 19 mEq/L (21-27) L 10/18/16 03:45 ABG Base Excess -4.4 mEq/L (-2.0 to 3.0) L 10/18/16 03:45 Chloride 114 mEq/L (98-109) H 10/19/16 07:55 Carbon Dioxide 18 mEq/L (19-29) L 10/19/16 07:55 BUN 67 mg/dL (7-20) H 10/19/16 07:55 Creatinine 2.71 mg/dL (0.57-1.11) H 10/19/16 07:55 Est GFR ( Amer) 21 (> 60) L 10/19/16 07:55 Est GFR (Non-Af Amer) 17 (> 60) L 10/19/16 07:55 Glucose 146 mg/dL (70-99) H 10/19/16 07:55 POC Glucose 138 (58-89) H 10/18/16 23:16 Calculated Osmolality 320 (280-300) H 10/19/16 07:55 Lactic Acid 2.5 mmol/L (0.5-2.2) H 10/17/16 05:05 Calcium 8.4 mg/dL (8.6-10.8) L 10/19/16 07:55 Total Bilirubin 1.8 mg/dL (0.2-1.2) H 10/19/16 04:50 Direct Bilirubin 0.8 mg/dL (0.0-0.5) H 10/16/16 15:57 Serum Total Protein 5.9 g/dL (6.0-8.3) L 10/19/16 04:50 Albumin 2.9 g/dL (3.5-5.0) L 10/19/16 04:50 Albumin/Globulin Ratio 1.0 (1.1-2.2) L 10/19/16 04:50 Urine Glucose (UA) 100 mg/dL (Normal) H 10/16/16 17:38 Ur Leukocyte Esterase Small (Negative) H 10/16/16 17:38 Urine Microscopic WBC 5-15 per hpf (0-3) H 10/16/16 17:38 Ur Squamous Epith Cells Many per lpf (None-Few) H 10/16/16 17:38 Urine Yeast Moderate per hpf (None Seen) H 10/16/16 17:38 Ur Culture Indicated? YES (NO) A 10/16/16 17:38 Urine Opiates Screen Positive ng/mL (Bdqxhv=276) H 10/16/16 17:38 U Benzodiazepines Scrn Positive ng/mL (Ybayvt=787) H 10/16/16 17:38 - Microbiology Findings Microbiology Findings: Microbiology, Last 48 Hours 10/16/16 17:38 Urine Culture - Final Urine,Clean Catch No growth. - Clinical Findings Intake & Output: Intake & Output 10/18/16 10/19/1610/19/17 23:59 07:59 15:59 Output Total 300 / 300 225 / 225 Balance -300 / -300 -225 / -225 Weight 78.562 kg Consult Discharge Plan - Plan Referrals: NONE,PCP [Primary Care Provider] - <Alysha Gurrola - Last Filed: 10/19/16 11:36> Date of Encounter: 10/19/16 Objective PUL Vital signs: Last Vital Signs Temp 97.5 F L 10/19/16 07:44 Pulse 69 10/19/16 10:00 Resp 20 10/19/16 10:00 BP 120/54 10/19/16 10:00 Pulse Ox 100 10/19/16 10:00 Results - Laboratory Findings CBC and BMP: 10/18/16 05:20 10/19/16 07:55 ABG ABG pH 7.43 pH Units (7.32-7.45) 10/18/16 03:45 ABG pCO2 29 mmHg (35-45) L 10/18/16 03:45 ABG pO2 101 mmHg (85-104) 10/18/16 03:45 ABG O2 Saturation 98 % (95-98) 10/18/16 03:45 PT/INR, D-dimer PT 13.9 Seconds (9.4-12.1) H 10/16/16 15:57 Abnormal lab findings: Abnormal lab results RBC 2.56 M/mcL (3.82-4.97) L 10/18/16 05:20 Hgb 7.9 g/dL (11.5-15.4) L 10/18/16 05:20 Hct 25.1 % (35.3-44.9) L 10/18/16 05:20 MCHC 31.5 g/dL (31.6-35.5) L 10/18/16 05:20 RDW 18.0 % (11.5-14.5) H 10/18/16 05:20 Plt Count 55 K/mcL (140-400) L 10/18/16 05:20 Platelet Estimate Decreased (Normal) L 10/16/16 15:57 PT 13.9 Seconds (9.4-12.1) H 10/16/16 15:57 ABG pCO2 29 mmHg (35-45) L 10/18/16 03:45 ABG HCO3 19 mEq/L (21-27) L 10/18/16 03:45 ABG Base Excess -4.4 mEq/L (-2.0 to 3.0) L 10/18/16 03:45 Chloride 114 mEq/L (98-109) H 10/19/16 07:55 Carbon Dioxide 18 mEq/L (19-29) L 10/19/16 07:55 BUN 67 mg/dL (7-20) H 10/19/16 07:55 Creatinine 2.71 mg/dL (0.57-1.11) H 10/19/16 07:55 Est GFR ( Amer) 21 (> 60) L 10/19/16 07:55 Est GFR (Non-Af Amer) 17 (> 60) L 10/19/16 07:55 Glucose 146 mg/dL (70-99) H 10/19/16 07:55 POC Glucose 138 (58-89) H 10/18/16 23:16 Calculated Osmolality 320 (280-300) H 10/19/16 07:55 Lactic Acid 2.5 mmol/L (0.5-2.2) H 10/17/16 05:05 Calcium 8.4 mg/dL (8.6-10.8) L 10/19/16 07:55 Total Bilirubin 1.8 mg/dL (0.2-1.2) H 10/19/16 04:50 Direct Bilirubin 0.8 mg/dL (0.0-0.5) H 10/16/16 15:57 Serum Total Protein 5.9 g/dL (6.0-8.3) L 10/19/16 04:50 Albumin 2.9 g/dL (3.5-5.0) L 10/19/16 04:50 Albumin/Globulin Ratio 1.0 (1.1-2.2) L 10/19/16 04:50 Ur Specimen Adequacy See below A 10/19/16 09:59 Urine Clarity Cloudy (Clear) A 10/19/16 09:59 Ur Specific [place] 1.026 (1.010-1.025) H 10/19/16 09:59 Urine Protein 30 mg/dL (Neg-Trace) H 10/19/16 09:59 Urine Ketones Trace mg/dL (Negative) H 10/19/16 09:59 Urine Blood Trace (Negative) H 10/19/16 09:59 Ur Leukocyte Esterase Small (Negative) H 10/19/16 09:59 Urine Microscopic RBC 3-5 per hpf (0-3) H 10/19/16 09:59 Urine Microscopic WBC 5-15 per hpf (0-3) H 10/19/16 09:59 Ur Squamous Epith Cells Many per lpf (None-Few) H 10/19/16 09:59 Ur Culture Indicated? YES (NO) A 10/19/16 09:59 Urine Opiates Screen Positive ng/mL (Ozjrsi=761) H 10/16/16 17:38 U Benzodiazepines Scrn Positive ng/mL (Ddyquf=456) H 10/16/16 17:38 - Microbiology Findings Microbiology Findings: Microbiology, Last 48 Hours 10/16/16 17:38 Urine Culture - Final Urine,Clean Catch No growth. - Clinical Findings Intake & Output: Intake & Output 10/18/16 10/19/16 10/19/16 23:59 07:59 15:59 Output Total 300 / 300 225 / 225 Balance -300 / -300 -225 / -225 Weight 78.562 kg - Attending Attestation I saw the patient with the resident agree with History and Physical exam findings. 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 Will continue treatment for hepatic encephalopathy NECK : No JVD appreciated Pulmonary : Patient had mild shortness of breadth will continue treatment for aspiration pneumonia , ascites can be contributing to v/q mismatch Cardiac : Hemodynamically stable Nutrition/GI: Patient is NPO now will consult speech for formal swallow evaluation because concern for aspiration. Will do a abdominal ultrasound to see whether she has enough pocket of fluid will send analysis for SBP low concern for it. Renal : SAUL most likely due to ATN vs Pre renal vs Hepatorenal will get urine electrolytes , UA for any granular casts . Will do daily albumin and midodrine . If there is high concern for hepato renal will do octreotide . Patient will not be candidate for dialysis will have to discuss witth the son when he comes. Heme onc : Thrombocytopenia will hold subcutaneous heparin Disposition : Patient mental status still not ideal to go to the floor she needs to go on her oral lactulose and oral rifaximin before there will be dramatic improvement in mental status Code status: DNRCCA -DNI , will consult palliative care tomorrow . Family/POA: Son
[2016-10-19] MEDS: Aspirin 81 MG TAB.CHEW PO SCH (09:00)
[2016-10-19] MEDS: FLUoxetine 20 MG CAPSULE PO SCH (09:01)
[2016-10-19] MEDS: Pantoprazole 40 MG VIAL IVPB SCH (09:06)
[2016-10-19 10:08] LABS: Bilirubin,Urine Negative (Negative); Blood,Urine Trace (Negative); Clarity,Urine Cloudy (Clear); Color,Urine Yellow (Yellow); Glucose,Urine (UA) Normal (Normal); Ketones,Urine Trace mg/dL (Negative); Leukocyte Esterase,Urine Small (Negative); Nitrite,Urine Negative (Negative); Protein,Urine 30 mg/dL (Neg-Trace); Specific Gravity,Urine 1.026 (1.010-1.025); Urobilinogen,Urine Normal (Normal)
[2016-10-19 10:10] LABS: Bacteria,Urine None Seen per hpf (None-Few); Squamous Epithelial Cell,Urine Many per lpf (None-Few)
[2016-10-19 10:19] LABS: Hyaline Casts,Urine None Seen per lpf (None-Few)
[2016-10-19] MEDS ORDERED: Ampicillin/Sulbactam 3,000 MG in 0.9 % Sodium Chloride Mini Bag 100 ML IVPB SCH (12:00)
[2016-10-19] MEDS: Albumin 25% 25gram/100mL 25 GM/100 ML IV.SOLN IVC SCH ×2 (12:35→13:57)
[2016-10-20] MEDS: Insulin LISPRO 300 UNITS/3 ML VIAL SQ SCH ×5 (00:10→23:54)
[2016-10-20] MEDS: Levothyroxine Sodium 100 MCG VIAL IVP SCH ×2 (04:54→10:36)
[2016-10-20] MEDS: Lactulose Oral Soln 20 GM/30 ML UDC PO SCH ×5 (04:54→23:57)
[2016-10-20] MEDS: Albumin 25% 25gram/100mL 25 GM/100 ML IV.SOLN IVC SCH ×2 (06:06→10:35)
--- NOTE | 2016-10-20 06:46 | Pulmonology Progress Note ---
<Nico Tomlinson - Last Filed: 10/20/16 06:39> Date of Encounter: 10/20/16 Time of Encounter: 06:40 Assessment and Plan (1) Hepatic encephalopathy Current Visit: Yes Status: Acute Patient is receiving albumin and scheduled for paracentesis this AM. Son has changed patient to DNR/DNI. Will consult palliative care as well. Continue to monitor patient's mental status and frequent neuro exams. (2) Altered mental status Current Visit: Yes Status: Acute Unable to receive lactulose or rifaximin d/t NPO status. Consulted speech to determine swallow study results so we can resume treatment. Patient better than at admission but not at baseline according to son. Qualifiers: Altered mental status type: somnolence Qualified Code(s): R40.0 - Somnolence (3) Acute worsening of stage 3 chronic kidney disease Current Visit: No Status: Acute 175cc urine output overnight. Continue albumin infusion and monitor I&Os. (4) DVT prophylaxis Current Visit: Yes Status: Acute SCDs placed due to low platelet count Subjective Principal diagnosis: Hepatic Encephalopathy Interval history: Patient seen and examined. Patient resting comfortably in bed and reports no complaints. Nursing reports 175cc urine output overnight. Patient is receiving albumin and scheduled for paracentesis this AM. She is on 2L NC this AM. Son has changed patient to DNR/DNI Objective PUL Vital signs: Last Vital Signs Temp 97.9 F 10/20/16 04:20 Pulse 75 10/20/16 06:00 Resp 18 10/20/16 06:00 BP 110/62 10/20/16 06:00 Pulse Ox 96 10/20/16 06:00 General appearance: no acute distress, asleep ENT: oropharynx dry Neck: supple, no lymphadenopathy Effort: normal Auscultation: bilateral: clear Cardiovascular: regular rate and rhythm Gastrointestinal: hypoactive bowel sounds, soft, other (distended) Integumentary: normal Extremities: no cyanosis, pink and warm, pulses normal non-focal exam other (resting comfortably) Results - Laboratory Findings CBC and BMP: 10/18/16 05:20 10/20/16 04:25 ABG ABG pH 7.43 pH Units (7.32-7.45) 10/18/16 03:45 ABG pCO2 29 mmHg (35-45) L 10/18/16 03:45 ABG pO2 101 mmHg (85-104) 10/18/16 03:45 ABG O2 Saturation 98 % (95-98) 10/18/16 03:45 PT/INR, D-dimer PT 13.9 Seconds (9.4-12.1) H 10/16/16 15:57 Abnormal lab findings: Abnormal lab results RBC 2.56 M/mcL (3.82-4.97) L 10/18/16 05:20 Hgb 7.9 g/dL (11.5-15.4) L 10/18/16 05:20 Hct 25.1 % (35.3-44.9) L 10/18/16 05:20 MCHC 31.5 g/dL (31.6-35.5) L 10/18/16 05:20 RDW 18.0 % (11.5-14.5) H 10/18/16 05:20 Plt Count 55 K/mcL (140-400) L 10/18/16 05:20 Platelet Estimate Decreased (Normal) L 10/16/16 15:57 PT 13.9 Seconds (9.4-12.1) H 10/16/16 15:57 ABG pCO2 29 mmHg (35-45) L 10/18/16 03:45 ABG HCO3 19 mEq/L (21-27) L 10/18/16 03:45 ABG Base Excess -4.4 mEq/L (-2.0 to 3.0) L 10/18/16 03:45 Sodium 147 mEq/L (136-145) H 10/20/16 04:25 Chloride 115 mEq/L (98-109) H 10/20/16 04:25 Carbon Dioxide 17 mEq/L (19-29) L 10/20/16 04:25 BUN 73 mg/dL (7-20) H 10/20/16 04:25 Creatinine 2.75 mg/dL (0.57-1.11) H 10/20/16 04:25 Est GFR ( Amer) 20 (> 60) L 10/20/16 04:25 Est GFR (Non-Af Amer) 17 (> 60) L 10/20/16 04:25 BUN/Creatinine Ratio 27 (6-26) H 10/20/16 04:25 Glucose 134 mg/dL (70-99) H 10/20/16 04:25 POC Glucose 138 (58-89) H 10/19/16 23:49 Calculated Osmolality 328 (280-300) H 10/20/16 04:25 Lactic Acid 2.5 mmol/L (0.5-2.2) H 10/17/16 05:05 Total Bilirubin 1.8 mg/dL (0.2-1.2) H 10/19/16 04:50 Direct Bilirubin 0.8 mg/dL (0.0-0.5) H 10/16/16 15:57 Serum Total Protein 5.9 g/dL (6.0-8.3) L 10/19/16 04:50 Albumin 2.9 g/dL (3.5-5.0) L 10/19/16 04:50 Albumin/Globulin Ratio 1.0 (1.1-2.2) L 10/19/16 04:50 Ur Specimen Adequacy See below A 10/19/16 09:59 Urine Clarity Cloudy (Clear) A 10/19/16 09:59 Ur Specific Dillon 1.026 (1.010-1.025) H 10/19/16 09:59 Urine Protein 30 mg/dL (Neg-Trace) H 10/19/16 09:59 Urine Ketones Trace mg/dL (Negative) H 10/19/16 09:59 Urine Blood Trace (Negative) H 10/19/16 09:59 Ur Leukocyte Esterase Small (Negative) H 10/19/16 09:59 Urine Microscopic RBC 3-5 per hpf (0-3) H 10/19/16 09:59 Urine Microscopic WBC 5-15 per hpf (0-3) H 10/19/16 09:59 Ur Squamous Epith Cells Many per lpf (None-Few) H 10/19/16 09:59 Ur Culture Indicated? YES (NO) A 10/19/16 09:59 Urine Opiates Screen Positive ng/mL (Mmhbnh=021) H 10/16/16 17:38 U Benzodiazepines Scrn Positive ng/mL (Yjjqxl=535) H 10/16/16 17:38 - Clinical Findings Intake & Output: Intake & Output 10/19/16 10/19/16 10/20/16 15:59 23:59 07:59 Intake Total 550 / 550 Output Total 50 / 50 150 / 150 175 / 175 Balance 500 / 500 -150 / -150 -175 / -175 Weight 78.7 kg Consult Discharge Plan - Plan Referrals: NONE,PCP [Primary Care Provider] - <Alysha Gurrola - Last Filed: 10/20/16 15:19> Date of Encounter: 10/20/16 Objective PUL Vital signs: Last Vital Signs Temp 97.4 F L 10/20/16 14:52 Pulse 69 10/20/16 14:52 Resp 22 10/20/16 14:52 BP 127/95 10/20/16 14:52 Pulse Ox 98 10/20/16 14:52 Results - Laboratory Findings CBC and BMP: 10/20/16 10:00 10/20/16 04:25 ABG ABG pH 7.43 pH Units (7.32-7.45) 10/18/16 03:45 ABG pCO2 29 mmHg (35-45) L 10/18/16 03:45 ABG pO2 101 mmHg (85-104) 10/18/16 03:45 ABG O2 Saturation 98 % (95-98) 10/18/16 03:45 PT/INR, D-dimer PT 13.9 Seconds (9.4-12.1) H 10/16/16 15:57 Abnormal lab findings: Abnormal lab results RBC 2.19 M/mcL (3.82-4.97) L 10/20/16 10:00 Hgb 6.8 g/dL (11.5-15.4) L 10/20/16 10:00 Hct 22.6 % (35.3-44.9) L 10/20/16 10:00 MCV 103.2 fL (83.0-100.0) H 10/20/16 10:00 MCHC 30.1 g/dL (31.6-35.5) L 10/20/16 10:00 RDW 18.4 % (11.5-14.5) H 10/20/16 10:00 Plt Count 57 K/mcL (140-400) L 10/20/16 10:00 Platelet Estimate Decreased (Normal) L 10/20/16 10:00 Anisocytosis 1+ (Not Present) A 10/20/16 10:00 Macrocytosis Present (Not Present) A 10/20/16 10:00 PT 13.9 Seconds (9.4-12.1) H 10/16/16 15:57 ABG pCO2 29 mmHg (35-45) L 10/18/16 03:45 ABG HCO3 19 mEq/L (21-27) L 10/18/16 03:45 ABG Base Excess -4.4 mEq/L (-2.0 to 3.0) L 10/18/16 03:45 Sodium 147 mEq/L (136-145) H 10/20/16 04:25 Chloride 115 mEq/L (98-109) H 10/20/16 04:25 Carbon Dioxide 17 mEq/L (19-29) L 10/20/16 04:25 BUN 73 mg/dL (7-20) H 10/20/16 04:25 Creatinine 2.75 mg/dL (0.57-1.11) H 10/20/16 04:25 Est GFR ( Amer) 20 (> 60) L 10/20/16 04:25 Est GFR (Non-Af Amer) 17 (> 60) L 10/20/16 04:25 BUN/Creatinine Ratio 27 (6-26) H 10/20/16 04:25 Glucose 134 mg/dL (70-99) H 10/20/16 04:25 POC Glucose 138 (58-89) H 10/19/16 23:49 Calculated Osmolality 328 (280-300) H 10/20/16 04:25 Lactic Acid 2.5 mmol/L (0.5-2.2) H 10/17/16 05:05 Total Bilirubin 1.8 mg/dL (0.2-1.2) H 10/19/16 04:50 Direct Bilirubin 0.8 mg/dL (0.0-0.5) H 10/16/16 15:57 Serum Total Protein 5.9 g/dL (6.0-8.3) L 10/19/16 04:50 Albumin 2.9 g/dL (3.5-5.0) L 10/19/16 04:50 Albumin/Globulin Ratio 1.0 (1.1-2.2) L 10/19/16 04:50 Ur Specimen Adequacy See below A 10/19/16 09:59 Urine Clarity Cloudy (Clear) A 10/19/16 09:59 Ur Specific Dillon 1.026 (1.010-1.025) H 10/19/16 09:59 Urine Protein 30 mg/dL (Neg-Trace) H 10/19/16 09:59 Urine Ketones Trace mg/dL (Negative) H 10/19/16 09:59 Urine Blood Trace (Negative) H 10/19/16 09:59 Ur Leukocyte Esterase Small (Negative) H 10/19/16 09:59 Urine Microscopic RBC 3-5 per hpf (0-3) H 10/19/16 09:59 Urine Microscopic WBC 5-15 per hpf (0-3) H 10/19/16 09:59 Ur Squamous Epith Cells Many per lpf (None-Few) H 10/19/16 09:59 Ur Culture Indicated? YES (NO) A 10/19/16 09:59 Urine Opiates Screen Positive ng/mL (Oqxdmw=686) H 10/16/16 17:38 U Benzodiazepines Scrn Positive ng/mL (Sondxp=202) H 10/16/16 17:38 - Microbiology Findings Microbiology Findings: Microbiology, Last 48 Hours 10/19/16 09:59 Urine Culture - Final Urine,Clean Catch No growth. - Clinical Findings Intake & Output: Intake & Output 10/19/16 10/20/16 10/20/16 23:59 07:59 15:59 Intake Total 300 / 300 Output Total 150 / 150 225 / 225 Balance -150 / -150 -225 / -225 300 / 300 Weight 78.7 kg - Attending Attestation I saw the patient with the resident agree with History and Physical exam findings with with additional findings of more right basilar crackles few rales on the left side. Labs and Radiology were reviewed Patient started on BiPAP in the early afternoon. APPLICATION DEVELOPMENT LIAISON:Patient is lethargic but follow commands but not fully back to baseline we will continue treatment for hepatic encephalopathy. It is hard to ascertain mental status in the setting of hepatic encephalopathy as the circadian rhythm is altered. These patients sometimes sleep more during the day than night. NECK : No JVD appreciated Pulmonary : Patient has increased work of breathing suspect V/Q mismatch is worsened by fluid overload due to resuscitation for prerenal vs hepatorenal syndrome , put her BIPAP 12/6 tolerating well. 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 Cardiac : Hemodynamically stable Nutrition/GI: Speech cleared her for nectar thick liquids will start lactulose and rifaximin for the management of hepatic encephalopathy. End stage liver disease palliative care consultation, patient does not meet criteria for hospice yet based on the synthetic function of the liver Renal : SAUL , renal consultation gave opinion that patient is more PRERENAL picture rather than hepatorenal syndrome recommended to give fluids gave adequate volume yesterday and today since her respiratory status is worsened will hold off fluids tonight and reassess tomorrow we will trend renal function test potassium within normal range Heme onc : Thrombocytopenia no acute issues will hold off heparin. ID : Unasyn for aspiration pneumonia once the respiratory status improves will deescalate soon. Musculo skeletal / skin issues : Poor nutrition skin tear noted Disposition : Patient's son eventually wants her to go home but now after stabilization of the respiratory and altered mental status we will transferred her to the floor and probably home with home hospice Code status: DNR A with DNI Family/POA: Son was updated about the current status
--- NOTE | 2016-10-20 08:15 | Electrocardiograph Report ---
[address] [address] Test Date: 2016-10-16 Pat Name: Nellie Flores Department: 102 Room: 01 Gender: F Marketing Liaison: [facility] : 1940 Requested By: Albert Rosas Order Number: [id number] Reading MD: Sherlyn Sheikh Measurements Intervals Mora Rate: 89 P: 28 CT: 144 QRS: -34 QRSD: 117 T: 45 QT: 422 QTc: 469 Interpretive Statements SINUS RHYTHM MARKED LEFT AXIS DEVIATION [QRS AXIS < -30] MODERATE INTRAVENTRICULAR CONDUCTION DELAY MODERATE VOLTAGE CRITERIA FOR LVH, CONSIDER NORMAL VARIANT Electronically Signed On 10-19-2016 11:05:30 EDT by Sherlyn Sheikh
[2016-10-20 10:11] LABS: Hematocrit 22.6 % (35.3-44.9)
[2016-10-20 10:13] LABS: Basophils % 0.4 %; Eosinophils # 0.1 K/mcL (0.0-0.6); Eosinophils % 2.4 %; Hemoglobin 6.8 g/dL (11.5-15.4); Immature Granulocytes % 0.4 % (0-4); Immature Platelets 4.7 % (1.1-6.1); Lymphocytes # 0.6 K/mcL (0.6-4.6); Lymphocytes % 13.5 %; Mean Corpuscular HGB Conc 30.1 g/dL (31.6-35.5); Mean Corpuscular Hemoglobin 31.1 pg (28.0-33.3); Mean Corpuscular Volume 103.2 fL (83.0-100.0); Mean Platelet Volume 11.3 fL (9.4-12.4); Monocytes # 0.6 K/mcL (0.0-1.3); Monocytes % 12.2 %; Neutrophils # 3.3 K/mcL (1.6-8.9); Red Blood Count 2.19 M/mcL (3.82-4.97); Red Cell Distribution Width 18.4 % (11.5-14.5); Segmented Neutrophils % 71.1 %
[2016-10-20] MEDS: FLUoxetine 20 MG CAPSULE PO SCH (10:35)
[2016-10-20] MEDS: Aspirin 81 MG TAB.CHEW PO SCH (10:35)
[2016-10-20] MEDS: Pantoprazole 40 MG VIAL IVPB SCH (10:36)
--- NOTE | 2016-10-20 10:39 | IR Procedure Note ---
Date of procedure: 10/20/16 Consent Obtained: Verbal consent, Written consent Timeout: Correct patient and procedure verified, Correct site verified, Time out performed, Skin prep completed Indications: ascites Procedure Performed: limited abdominal US Site/Technique: abdomen Results/Findings: insufficient fluid for therapeutic ascites
[2016-10-20 10:41] LABS: Platelet Count 57 K/mcL (140-400)
[2016-10-20 10:47] LABS: Anisocytosis 1+ (Not Present); Macrocytosis Present (Not Present)
[2016-10-20 10:48] LABS: Platelet Estimate Decreased (Normal)
[2016-10-20] MEDS ORDERED: Ipratropium/Albuterol Neb 3 ML IH PRN (11:02)
[2016-10-20] MEDS ORDERED: D5% in Water 1,000 ML IVC PRN (11:02)
[2016-10-20] MEDS ORDERED: *HR* Dextrose 50 % in Water (Syg) 50 ML SYRINGE IVP PRN (11:02)
[2016-10-20] MEDS ORDERED: Dextrose Gel 15 GM PO PRN ×2 (11:02)
[2016-10-20] MEDS ORDERED: Naloxone 0.4 MG/ML INJ IVP PRN (11:02)
--- NOTE | 2016-10-20 11:09 | Palliative - Consult Note ---
<Timur Pettit - Last Filed: 10/20/16 11:24> Date of Encounter: 10/20/16 Time of Encounter: 11:02 - Assessment and Plan (1) Counseling regarding advanced care planning and goals of care Current Visit: No Status: Acute Assessment and plan: After discussion with son and patient, main goal for patient is to return to home living with as much functionality as possible and comfort care. Son is PoA , and Code Status remain DNR CCA DNI. Patient lives at home with her son, who assists with ADL. Patient at baseline is able to prepare food and shower independently. Patient currently does not meet criteria for Cirrhosis w/ Ascites hospice, but will consider very soon. Symptomatic paracentesis treatment scheduled for today. (2) Hepatic encephalopathy Current Visit: No Status: Chronic Assessment and plan: Patient continues to make progress, but still not at baseline according to son. Patient to receive paracentesis today. (3) Diabetes Current Visit: No Status: Chronic Assessment and plan: patient is nothing by mouth and Accu-Checks w/ SSI Qualifiers: Diabetes mellitus type: type 2 Diabetes mellitus complication status: with kidney complications Diabetes mellitus complication detail: with chronic kidney disease Diabetes mellitus halfway insulin use: with termite technician use Chronic kidney disease stage: stage 3 (moderate) Qualified Code(s): E11.22 - Type 2 diabetes mellitus with diabetic chronic kidney disease; N18.3 - Chronic kidney disease, stage 3 (moderate); Z79.4 - detention (current) use of insulin (4) Hepatic encephalopathy Current Visit: No Status: Chronic (5) CKD (chronic kidney disease) stage 4, GFR 15-29 ml/min Current Visit: No Status: Chronic Assessment and plan: Follow Medicine team's recommendations. Palliative-CN HPI - Data of Consult Patient: new to practice Consult date: 10/20/16 Requesting Physician: Karina Bee MD Primary Care Provider: PCP NONE - Consult Narrative Palliative Care/Comfort Measures: Palliative care Reason for consult: goals of therapy History of present illness: Ms. Flores is a 76 year old female who was admitted due to hepatic encephalopathy with a hx of diabetes, ckd, ELLIOTT cirrhosis of liver w/ ascites, and weekly paracentesis. Patient on average has 5-6 liters of fluid taken off during paracentesis, last week's paracentesis 3.5 liters were taken off. Patient comprehended and answered questions appropriately. Son was present as well. Patient reports feeling much better today, and denies shortness of breath , and feeling much more coherent today. She states that her pain is tolerable. She reports soreness due to the extubation. In the middle of history, patient interrupted mid conversation and stated that she requested to go peacefully. CC: Karina Bee MD Past Med Surg Social Fam HX - Past Medical History Medical history: arthritis, cirrhosis, COPD, dementia, diabetes, GERD, glaucoma , hepatitis, hyperlipidemia, hypertension, liver disease, osteoporosis, renal disease, thyroid disease Psychiatric history: no psych history - Past Surgical History Surgical History: herniorrhaphy - Social History Smoking Status: Never smoker Smokeless Tobacco Status: No Alcohol use: none Drug use: none - Family History Sister Adopted: No Living Status: Hx Family Cardiac Disorders: Yes Hx Family Respiratory Disorders: Yes Hx Family Cancer: Yes Hx Family GI Disorders: Yes (cirrhosis) Hx Family Endocrine Disorder: No Hx Family Neuromuscular Disorders: No Hx Family Neurologic Disorders: No Hx Family HEENT Disorders: No Hx Family Autoimmune Disorders: No Mother Adopted: No Family Member Ethnicity: Non- Living Status: Hx Family Cardiac Disorders: Yes Father Hx Family Cardiac Disorders: Yes (ID) Son Adopted: No Family Member Ethnicity: Non- Living Status: Still Living Hx Family Cardiac Disorders: Yes (HTN) Hx Family Respiratory Disorders: No Hx Family Cancer: No Hx Family GI Disorders: No Hx Family Endocrine Disorder: No Hx Family Neuromuscular Disorders: No Hx Family Neurologic Disorders: No Hx Family HEENT Disorders: No Hx Family Autoimmune Disorders: No Medications and Allergies Cholecalciferol (Vitamin D3) [Vitamin D3] 50,000 unit PO WESA 11/02/14 [History] Magnesium Oxide [Magnesium] 400 mg PO BID 11/02/14 [History] Aspirin 81 mg PO DAILY 30 Days 11/08/14 [Rx] Ipratropium/Albuterol Neb [Duoneb] 3 ml IH Q4HR PRN 04/26/15 [History] Rifaximin [Xifaxan] 550 mg PO BID #60 tablet 05/01/15 [Rx] Cyanocobalamin (Vitamin B-12) [Vitamin B12] 1,000 mcg PO BID 09/03/15 [History] Zinc Sulfate 220 mg PO BID 09/03/15 [History] Insulin DETEMIR [Levemir Flextouch] 40 unit SQ BID 10/07/15 [History] Lactulose 15 ml PO TID MDD HEPATIC ENCEPALOPATHY 10/07/15 [History] Levothyroxine [Synthroid] 100 mcg PO QAM 10/07/15 [History] Oxygen 2 l NS AD 12/22/15 [History] Ondansetron ODT [Zofran ODT] 4 mg SL TID PRN 04/02/16 [History] raNITIdine HCl [Ranitidine HCl] 150 mg PO BID 04/02/16 [History] Diclofenac Sodium 1 appl TP QID PRN 04/09/16 [History] HYDROcodone/Acet 5/325 mg [[place] 5-325 mg] 1 tab PO Q8H PRN 07/14/16 [History] Pantoprazole Sodium [Protonix] 40 mg PO DAILY 07/14/16 [History] Folic Acid 1 mg PO DAILY #30 tablet 07/27/16 [Rx] FLUoxetine HCl [Prozac] 20 mg PO DAILY 09/09/16 [History] Sucralfate [Carafate] 1 gm PO BID 09/09/16 [History] Furosemide [Lasix] 20 mg PO DAILY #30 tablet 09/16/16 [Rx] Midodrine HCl 2.5 mg PO DAILY #0 09/16/16 [Rx] Propranolol LA (24 HR) [Inderal LA] 60 mg PO DAILY #30 cap.sa.24h 09/16/16 [Rx] 3 Allergy/AdvReac Type Severity Reaction Status Date / Time No Known Allergies Allergy Verified 09/09/16 11:41 Palliative Care-Exam - Constitutional Vitals: Temp Pulse Resp BP Pulse Ox 98.0 F 77 23 137/58 97 10/20/16 07:35 10/20/16 09:00 10/20/16 09:00 10/20/16 09:00 10/20/16 09:00 General appearance: Present: disheveled, morbidly obese, obese - Eye Additional comments: unable to track with eyes during exam. - Respiratory Respiratory exam: Present: decreased breath sounds - Cardiovascular Cardiovascular exam: Present: RRR - GI/Abdominal Exam GI/Abdominal exam: Present: distended - Expanded GI/Abdominal Exam GI/Abdominal exam: Present: ascites Internal Medicine - CN: Reslt - Labs CBC & Chem 7: 10/20/16 10:00 10/20/16 04:25 Labs: Short CBC 10/20/16 Range/Units 10:00 WBC 4.6 (4.3-11.1) K/mcL Hgb 6.8 L (11.5-15.4) g/dL Hct 22.6 L (35.3-44.9) % Plt Count 57 L (140-400) K/mcL Neutrophils # 3.3 (1.6-8.9) K/mcL BMP 10/20/16 04:25 Sodium 147 H Potassium 4.0 Chloride 115 H Carbon Dioxide 17 L BUN 73 H Creatinine 2.75 H Glucose 134 H Calcium 9.0 - ABG Interpretation ABG results: ABG ABG pH 7.43 pH Units (7.32-7.45) 10/18/16 03:45 ABG pCO2 29 mmHg (35-45) L 10/18/16 03:45 ABG pO2 101 mmHg (85-104) 10/18/16 03:45 ABG O2 Saturation 98 % (95-98) 10/18/16 03:45 PT/INR, D-dimer PT 13.9 Seconds (9.4-12.1) H 10/16/16 15:57 - Impressions Impressions Abdomen/Pelvis/Transvag US 10/20/16 10:30 IMPRESSION: Small amount of ascites, insufficient for therapeutic paracentesis. D/ / Dane Ferraro MD / Dane Ferraro MD Interpreting Provider: Dane Ferraro MD Consult Discharge Plan - Plan Referrals: NONE,PCP [Primary Care Provider] - Palliative Quality Palliative Quality: Screen for Code Status: Yes, Screen for Goals of Care: Yes, Screen for Pain: Yes, If Pain Regimen Started, Initiate Bowel Regimen: NA, Screen for Nausea/Vomitting: Yes Code Status: 10/16/16 18:30 Resuscitation Status: Active [RES] Routine Comment: Resuscitation Status: DNR-Comfort Care-Arrest 10/19/16 10:05 Resuscitation Status: Active [RES] Routine Comment: Resuscitation Status: [id number] <Dave Cristobal L - Last Filed: 10/20/16 15:19> Date of Encounter: 10/20/16 Palliative-CN HPI - Data of Consult Requesting Physician: Karina Bee MD Primary Care Provider: PCP NONE - Consult Narrative History of present illness: Ms. Flores is a 76 year old female CC: Karina Bee MD Palliative Care-Exam - Constitutional Vitals: Temp Pulse Resp BP Pulse Ox 97.4 F L 69 22 127/95 98 10/20/16 14:52 10/20/16 14:52 10/20/16 14:52 10/20/16 14:52 10/20/16 14:52 Internal Medicine - CN: Reslt - Labs CBC & Chem 7: 10/20/16 10:00 10/20/16 04:25 Labs: Short CBC 10/20/16 Range/Units 10:00 WBC 4.6 (4.3-11.1) K/mcL Hgb 6.8 L (11.5-15.4) g/dL Hct 22.6 L (35.3-44.9) % Plt Count 57 L (140-400) K/mcL Neutrophils # 3.3 (1.6-8.9) K/mcL BMP 10/20/16 04:25 Sodium 147 H Potassium 4.0 Chloride 115 H Carbon Dioxide 17 L BUN 73 H Creatinine 2.75 H Glucose 134 H Calcium 9.0 - ABG Interpretation ABG results: ABG ABG pH 7.43 pH Units (7.32-7.45) 10/18/16 03:45 ABG pCO2 29 mmHg (35-45) L 10/18/16 03:45 ABG pO2 101 mmHg (85-104) 10/18/16 03:45 ABG O2 Saturation 98 % (95-98) 10/18/16 03:45 PT/INR, D-dimer PT 13.9 Seconds (9.4-12.1) H 10/16/16 15:57 - Impressions Impressions Abdomen/Pelvis/Transvag US 10/20/16 10:30 IMPRESSION: Small amount of ascites, insufficient for therapeutic paracentesis. D/ / Dane Ferraro MD / Dane Ferraro MD Interpreting Provider: Dane Ferraro MD Chest X-Ray 10/20/16 14:25 IMPRESSION: Probable small right pleural effusion with adjacent atelectasis versus pneumonia. D/ / Linnette Pineda MD / Linnette Pineda MD Interpreting Provider: Linnette Pineda MD - Attending Attestation I examined this patient and my medical decision-making was reviewed with the Resident Physician. I agree with the documented findings, disposition and treatment plan as described except to the extent set forth below. As per resident note, patient does not currently meet hospice, however she is not far from it. Discussion with patient's son however patient is not ready for hospice both from her standpoint or his although this could change. Palliative, will continue to follow. The patient did not get paracentesis today as there was not enough fluid. Palliative Quality Code Status: 10/16/16 18:30 Resuscitation Status: Active [RES] Routine Comment: Resuscitation Status: DNR-Comfort Care-Arrest 10/19/16 10:05 Resuscitation Status: Active [RES] Routine Comment: Resuscitation Status: [id number]
[2016-10-20] MEDS ORDERED: Ampicillin/Sulbactam 3,000 MG in 0.9 % Sodium Chloride Mini Bag 100 ML IVPB SCH (12:00)
--- NOTE | 2016-10-20 12:45 | Nephrology Consult Note ---
Date of Encounter: 10/20/16 Time of Encounter: 12:43 Assessment and Plan (1) Acute kidney failure, unspecified Current Visit: Yes Status: Acute Patient has a chronic picture of slowly worsening renal failure superimposed on chronic kidney disease in the setting of Snowden cirrhosis and hepatic encephalopathy. Clinically the patient appears to be somewhat volume depleted. She has minimal ascites on ultrasound and no peripheral edema. Her serum sodium is increased to 147. Weights have decreased from 81.2 on admission down to 78.7 kg. I would suggest continuing to keep the patient off diuretics. I agree with giving her albumin infusions. I am also going to start her on some free water replacement as well. Her hemoglobin is down to 6.8 and she is scheduled to undergo transfusion as well. Hopefully volume repletion will lead to improvement in her renal function. We also should check a spot urine sodium. If the urine sodium was extremely low that would favor hepatorenal syndrome. Currently at this point time I favor the diagnosis of volume depletion over hepatic renal syndrome. Qualifiers: Acute renal failure type: unspecified Qualified Code(s): N17.9 - Acute kidney failure, unspecified (2) Chronic kidney disease, stage IV (severe) Current Visit: Yes Status: Acute (3) Hepatic encephalopathy Current Visit: Yes Status: Acute (4) Anemia of chronic disease Current Visit: Yes Status: Acute History of Present Illness - History of Present Illness This is a 76-year-old female who is followed as an outpatient for stage IV chronic kidney disease with a baseline creatinine 1.68-2.0. Patient was admitted several days ago. History is obtained from the patient's son. The patient has a history of Snowden cirrhosis. She receives a therapeutic paracentesis every week. She is monitored by Dr. pineda. Patient had her last paracentesis 1 week ago. Reportedly she had 3.5 L removed. 2 days following that the patient was feeling weak according to the patient's son. She then became more confused. Eventually she came to the hospital. She was noted to be encephalopathic. Ammonia level was 183. She was intubated and placed in the intensive care unit. She subsequently has been extubated but currently is on BiPAP. Her serum creatinine has been slowly rising since her admission. On admission she was 2.50 she is now at 2.75. Her weight has decreased from 81.2 kg down to 78.7 kg. She is maintained on midodrine to help maintain her blood pressure. She initially received some Lasix when she was admitted to the hospital. That has subsequently been discontinued. She underwent an ultrasound for possible therapeutic paracentesis. According to the report there was not enough ascites present to undergo a paracentesis. Patient has a history of chronic anemia that is likely multifactorial. Most recent hemoglobin is 6.8. She has received multiple transfusions over multiple hospitalizations in the recent past. Past Med Surg Social Fam HX - Past Medical History Medical history: arthritis, cirrhosis, COPD, dementia, diabetes, GERD, glaucoma , hepatitis, hyperlipidemia, hypertension, liver disease, osteoporosis, renal disease, thyroid disease Psychiatric history: no psych history - Past Surgical History Surgical History: herniorrhaphy - Social History Smoking Status: Never smoker Smokeless Tobacco Status: No Alcohol use: none Drug use: none - Family History Sister Adopted: No Living Status: Hx Family Cardiac Disorders: Yes Hx Family Respiratory Disorders: Yes Hx Family Cancer: Yes Hx Family GI Disorders: Yes (cirrhosis) Hx Family Endocrine Disorder: No Hx Family Neuromuscular Disorders: No Hx Family Neurologic Disorders: No Hx Family HEENT Disorders: No Hx Family Autoimmune Disorders: No Mother Adopted: No Family Member Ethnicity: Non- Living Status: Hx Family Cardiac Disorders: Yes Father Hx Family Cardiac Disorders: Yes (CT) Son Adopted: No Family Member Ethnicity: Non- Living Status: Still Living Hx Family Cardiac Disorders: Yes (HTN) Hx Family Respiratory Disorders: No Hx Family Cancer: No Hx Family GI Disorders: No Hx Family Endocrine Disorder: No Hx Family Neuromuscular Disorders: No Hx Family Neurologic Disorders: No Hx Family HEENT Disorders: No Hx Family Autoimmune Disorders: No Medications and Allergies Cholecalciferol (Vitamin D3) [Vitamin D3] 50,000 unit PO WESA 11/02/14 [History] Magnesium Oxide [Magnesium] 400 mg PO BID 11/02/14 [History] Aspirin 81 mg PO DAILY 30 Days 11/08/14 [Rx] Ipratropium/Albuterol Neb [Duoneb] 3 ml IH Q4HR PRN 04/26/15 [History] Rifaximin [Xifaxan] 550 mg PO BID #60 tablet 05/01/15 [Rx] Cyanocobalamin (Vitamin B-12) [Vitamin B12] 1,000 mcg PO BID 09/03/15 [History] Zinc Sulfate 220 mg PO BID 09/03/15 [History] Insulin DETEMIR [Levemir Flextouch] 40 unit SQ BID 10/07/15 [History] Lactulose 15 ml PO TID MDD HEPATIC ENCEPALOPATHY 10/07/15 [History] Levothyroxine [Synthroid] 100 mcg PO QAM 10/07/15 [History] Oxygen 2 l NS AD 12/22/15 [History] Ondansetron ODT [Zofran ODT] 4 mg SL TID PRN 04/02/16 [History] raNITIdine HCl [Ranitidine HCl] 150 mg PO BID 04/02/16 [History] Diclofenac Sodium 1 appl TP QID PRN 04/09/16 [History] HYDROcodone/Acet 5/325 mg [[place] 5-325 mg] 1 tab PO Q8H PRN 07/14/16 [History] Pantoprazole Sodium [Protonix] 40 mg PO DAILY 07/14/16 [History] Folic Acid 1 mg PO DAILY #30 tablet 07/27/16 [Rx] FLUoxetine HCl [Prozac] 20 mg PO DAILY 09/09/16 [History] Sucralfate [Carafate] 1 gm PO BID 09/09/16 [History] Furosemide [Lasix] 20 mg PO DAILY #30 tablet 09/16/16 [Rx] Midodrine HCl 2.5 mg PO DAILY #0 09/16/16 [Rx] Propranolol LA (24 HR) [Inderal LA] 60 mg PO DAILY #30 cap.sa.24h 09/16/16 [Rx] 3 Allergy/AdvReac Type Severity Reaction Status Date / Time No Known Allergies Allergy Verified 09/09/16 11:41 Review of Systems ROS unobtainable: due to mental status Exam - Vital Signs Vital signs: Initial Vital Signs Temp Pulse Resp BP Pulse Ox 98.2 F 86 22 197/81 92 10/16/16 15:41 10/16/16 15:41 10/16/16 15:41 10/16/16 15:41 10/16/16 15:41 Vital Signs - Last 8 Hours Temp Pulse Resp BP Pulse Ox 10/20/16 12:00 78 19 126/49 99 10/20/16 11:46 20 122/49 97 10/20/16 11:33 98.0 F 10/20/16 11:00 77 28 122/49 94 10/20/16 10:00 80 24 152/75 93 10/20/16 09:00 77 23 137/58 97 10/20/16 07:51 81 25 126/50 94 10/20/16 07:35 98.0 F 10/20/16 06:00 75 18 110/62 96 10/20/16 05:00 78 18 126/67 95 Intake and Output 10/19/16 10/20/16 10/20/16 23:59 07:59 15:59 Output Total 150 / 150 225 / 225 Balance -150 / -150 -225 / -225 Output: Catheter 150 / 150 225 / 225 Other: Stool Size Small Stool Consistency loose Stool Color Brown # Bowel Movements 1 Weight 78.7 kg Blood Glucose* 138 160 Patient Weight 10/20/16 23:59 Weight 78.7 kg - General Appearance Exam: Patient currently is on BiPAP. She is in no acute distress. She is unable to give any history. Lungs diminished breath sounds. Heart regular rate and rhythm with a 2/6 talk ejection murmur. Abdomen is distended. A ventral hernia is present. Abdomen is soft. There is no guarding or rigidity. There is no lower extremity swelling. Aviles catheter is in place. Results - Lab Results 10/20/16 10:00 10/20/16 04:25 Most recent lab results ABG pH 7.43 pH Units (7.32-7.45) 10/18/16 03:45 ABG pCO2 29 mmHg (35-45) L 10/18/16 03:45 ABG pO2 101 mmHg (85-104) 10/18/16 03:45 ABG HCO3 19 mEq/L (21-27) L 10/18/16 03:45 ABG O2 Saturation 98 % (95-98) 10/18/16 03:45 Calcium 9.0 mg/dL (8.6-10.8) 10/20/16 04:25 Phosphorus 3.0 mg/dL (2.3-4.7) 10/16/16 15:57 Magnesium 2.5 mg/dL (1.6-2.6) 10/16/16 15:57 Urine Creatinine 128 mg/dL 10/19/16 08:36 Urine Sodium 25.0 mEq/L 10/20/16 11:30 Consult Discharge Plan - Plan Referrals: NONE,PCP [Primary Care Provider] -
--- NOTE | 2016-10-20 12:50 | Event Note ---
Date of Encounter: 10/20/16 Time of Encounter: 12:50 The patient's spot urine sodium is ranging from 25-29 making the diagnosis of hepatorenal syndrome less likely.
[2016-10-20 23:12] LABS: Basophils % 0.3 %; Eosinophils # 0.1 K/mcL (0.0-0.6); Eosinophils % 1.9 %; Hematocrit 25.6 % (35.3-44.9); Immature Granulocytes % 0.8 % (0-4); Immature Platelets 4.5 % (1.1-6.1); Lymphocytes # 0.5 K/mcL (0.6-4.6); Lymphocytes % 9.2 %; Mean Corpuscular HGB Conc 31.3 g/dL (31.6-35.5); Mean Corpuscular Hemoglobin 29.1 pg (28.0-33.3); Mean Platelet Volume 10.7 fL (9.4-12.4); Monocytes # 0.9 K/mcL (0.0-1.3); Monocytes % 14.6 %; Neutrophils # 4.3 K/mcL (1.6-8.9); Red Blood Count 2.75 M/mcL (3.82-4.97); Segmented Neutrophils % 73.2 %
[2016-10-20 23:14] LABS: Mean Corpuscular Volume 93.1 fL (83.0-100.0)
[2016-10-20 23:15] LABS: Platelet Count 65 K/mcL (140-400)
[2016-10-20 23:36] LABS: Anisocytosis 2+ (Not Present); Hypochromasia Present (Not Present); Rouleaux Present (Not Present)
[2016-10-20 23:37] LABS: Platelet Estimate Decreased (Normal)
[2016-10-21] MEDS: Insulin LISPRO 300 UNITS/3 ML VIAL SQ SCH ×3 (05:46→18:37)
[2016-10-21 05:48] LABS: Basophils % 0.5 %; Hemoglobin 8.2 g/dL (11.5-15.4); Immature Granulocytes % 0.5 % (0-4)
[2016-10-21 05:50] LABS: Eosinophils # 0.1 K/mcL (0.0-0.6); Eosinophils % 1.9 %; Hematocrit 26.5 % (35.3-44.9); Immature Platelets 3.9 % (1.1-6.1); Lymphocytes # 0.6 K/mcL (0.6-4.6); Lymphocytes % 9.9 %; Mean Corpuscular HGB Conc 30.9 g/dL (31.6-35.5); Mean Corpuscular Hemoglobin 28.8 pg (28.0-33.3); Mean Platelet Volume 11.7 fL (9.4-12.4); Monocytes # 0.8 K/mcL (0.0-1.3); Monocytes % 13.4 %; Neutrophils # 4.3 K/mcL (1.6-8.9); Red Blood Count 2.85 M/mcL (3.82-4.97); Red Cell Distribution Width 26.2 % (11.5-14.5); Segmented Neutrophils % 73.8 %
[2016-10-21] MEDS: Lactulose Oral Soln 20 GM/30 ML UDC PO SCH ×3 (05:51→18:36)
[2016-10-21 05:53] LABS: Platelet Count 62 K/mcL (140-400)
[2016-10-21 06:04] LABS: Albumin/Globulin Ratio 1.4 (1.1-2.2); Bilirubin,Total 2.7 mg/dL (0.2-1.2); Calcium 8.9 mg/dL (8.6-10.8); Globulin 2.6 g/dL (2.4-3.5); Total Protein 6.3 g/dL (6.0-8.3)
[2016-10-21 06:05] LABS: Albumin 3.7 g/dL (3.5-5.0)
[2016-10-21 06:07] LABS: Anisocytosis 2+ (Not Present); Platelet Estimate Decreased (Normal)
[2016-10-21 06:10] LABS: Poikilocytosis 1+ (Not Present)
[2016-10-21] MEDS ORDERED: Levothyroxine Sodium 100 MCG VIAL IVP SCH (06:30)
--- NOTE | 2016-10-21 06:41 | Pulmonology Progress Note ---
<Nico Tomlinson - Last Filed: 10/21/16 16:03> Date of Encounter: 10/21/16 Time of Encounter: 06:38 Assessment and Plan (1) Hepatic encephalopathy Current Visit: Yes Status: Acute IR did not perform paracentesis yesterday because limited ascites fluid volume. Continue lactulose and rifaximin. Given albumin again today. Patient DNR CCA /DNI. Continue to monitor patient's mental status and frequent neuro exams. Prognosis guarded. Continue palliative care treatment plan. Anticipate transfer out of ICU tomorrow (2) Acute worsening of stage 3 chronic kidney disease Current Visit: No Status: Acute Continue albumin infusion and monitor I&Os. (3) Aspiration pneumonia Current Visit: Yes Status: Acute Completed Unasysn total of 6 days of treatment. Qualifiers: Aspiration pneumonia type: unspecified Laterality: right Lung location: unspecified part of lung Qualified Code(s): J69.0 - Pneumonitis due to inhalation of food and vomit (4) Decubitus ulcer of buttock, stage 2 Current Visit: Yes Status: Acute Present on admission Qualifiers: Laterality: left Qualified Code(s): L89.322 - Pressure ulcer of left buttock, stage 2 (5) DVT prophylaxis Current Visit: Yes Status: Acute SCDs placed due to low platelet count Subjective Principal diagnosis: Hepatic Encephalopathy Interval history: Patient seen and examined. Patient resting comfortably in bed on Bipap and reports no complaints. Nursing reports 150cc urine output overnight. She is lethargic this AM and son reports no significant improvement. Palliative care continuing symptomatic treatment with Dilaudid and Ativan. Currently the patient does not meet hospice criteria on the basis of liver or kidney function , however she remains hypoxemic from a respiratory standpoint. Discontinue BiPap. Anticipate transfer out of the ICU tomorrow. Objective PUL Vital signs: Last Vital Signs Temp 98.5 F 10/21/16 05:07 Pulse 61 10/21/16 06:00 Resp 13 10/21/16 06:11 BP 134/73 10/21/16 06:00 Pulse Ox 95 10/21/16 06:11 General appearance: lethargic, asleep, other (on bipap) Eyes: nonicteric ENT: oropharynx dry Neck: supple, no lymphadenopathy Effort: very labored (with laying flat), other (on bipap) Auscultation: bilateral: clear Cardiovascular: regular rate and rhythm Gastrointestinal: soft, non-tender, other (distended) Integumentary: decubitus ulcer (unchanged stage 2 ulcer on buttock) Musculoskeletal: no deformities non-focal exam, pupils equal and round anxious Results - Laboratory Findings CBC and BMP: 10/21/16 05:40 10/21/16 05:40 ABG ABG pH 7.43 pH Units (7.32-7.45) 10/18/16 03:45 ABG pCO2 29 mmHg (35-45) L 10/18/16 03:45 ABG pO2 101 mmHg (85-104) 10/18/16 03:45 ABG O2 Saturation 98 % (95-98) 10/18/16 03:45 PT/INR, D-dimer PT 13.9 Seconds (9.4-12.1) H 10/16/16 15:57 Abnormal lab findings: Abnormal lab results RBC 2.85 M/mcL (3.82-4.97) L 10/21/16 05:40 Hgb 8.2 g/dL (11.5-15.4) L 10/21/16 05:40 Hct 26.5 % (35.3-44.9) L 10/21/16 05:40 MCHC 30.9 g/dL (31.6-35.5) L 10/21/16 05:40 RDW 26.2 % (11.5-14.5) H 10/21/16 05:40 Plt Count 62 K/mcL (140-400) L 10/21/16 05:40 Platelet Estimate Decreased (Normal) L 10/21/16 05:40 Hypochromasia Present (Not Present) A 10/20/16 22:55 Poikilocytosis 1+ (Not Present) A 10/21/16 05:40 Anisocytosis 2+ (Not Present) A 10/21/16 05:40 Macrocytosis Present (Not Present) A 10/20/16 10:00 Rouleaux Present (Not Present) A 10/20/16 22:55 PT 13.9 Seconds (9.4-12.1) H 10/16/16 15:57 ABG pCO2 29 mmHg (35-45) L 10/18/16 03:45 ABG HCO3 19 mEq/L (21-27) L 10/18/16 03:45 ABG Base Excess -4.4 mEq/L (-2.0 to 3.0) L 10/18/16 03:45 Chloride 115 mEq/L (98-109) H 10/21/16 05:40 BUN 79 mg/dL (7-20) H 10/21/16 05:40 Creatinine 2.91 mg/dL (0.57-1.11) H 10/21/16 05:40 Est GFR ( Amer) 19 (> 60) L 10/21/16 05:40 Est GFR (Non-Af Amer) 16 (> 60) L 10/21/16 05:40 BUN/Creatinine Ratio 27 (6-26) H 10/21/16 05:40 Glucose 211 mg/dL (70-99) H 10/21/16 05:40 POC Glucose 260 (58-89) H 10/20/16 23:37 Calculated Osmolality 330 (280-300) H 10/21/16 05:40 Lactic Acid 2.5 mmol/L (0.5-2.2) H 10/17/16 05:05 Total Bilirubin 2.7 mg/dL (0.2-1.2) H 10/21/16 05:40 Direct Bilirubin 0.8 mg/dL (0.0-0.5) H 10/16/16 15:57 Ur Specimen Adequacy See below A 10/19/16 09:59 Urine Clarity Cloudy (Clear) A 10/19/16 09:59 Ur Specific Mobile 1.026 (1.010-1.025) H 10/19/16 09:59 Urine Protein 30 mg/dL (Neg-Trace) H 10/19/16 09:59 Urine Ketones Trace mg/dL (Negative) H 10/19/16 09:59 Urine Blood Trace (Negative) H 10/19/16 09:59 Ur Leukocyte Esterase Small (Negative) H 10/19/16 09:59 Urine Microscopic RBC 3-5 per hpf (0-3) H 10/19/16 09:59 Urine Microscopic WBC 5-15 per hpf (0-3) H 10/19/16 09:59 Ur Squamous Epith Cells Many per lpf (None-Few) H 10/19/16 09:59 Ur Culture Indicated? YES (NO) A 10/19/16 09:59 Urine Opiates Screen Positive ng/mL (Kgvbvt=720) H 10/16/16 17:38 U Benzodiazepines Scrn Positive ng/mL (Rqxldr=725) H 10/16/16 17:38 - Microbiology Findings Microbiology Findings: Microbiology, Last 48 Hours 10/19/16 09:59 Urine Culture - Final Urine,Clean Catch No growth. - Diagnostic Findings Chest x-ray: report reviewed, image reviewed - Clinical Findings Intake & Output: Intake & Output 10/20/16 10/20/16 10/21/16 15:59 23:59 07:59 Intake Total 400 / 400 540 / 540 Output Total 150 / 150 150 / 150 Balance 400 / 400 390 / 390 -150 / -150 Weight 80.6 kg - VTE Documentation of Mechanical Device: Intermittent pneumatic compression device Consult Discharge Plan - Plan Referrals: NONE,PCP [Primary Care Provider] - <Alysha Gurrola - Last Filed: 10/21/16 18:27> Date of Encounter: 10/21/16 Objective PUL Vital signs: Last Vital Signs Temp 97.1 F L 10/21/16 11:42 Pulse 64 10/21/16 16:00 Resp 24 10/21/16 16:00 BP 118/84 10/21/16 16:00 Pulse Ox 95 10/21/16 16:00 Results - Laboratory Findings CBC and BMP: 10/21/16 05:40 10/21/16 05:40 ABG ABG pH 7.37 pH Units (7.32-7.45) 10/21/16 10:50 ABG pCO2 33 mmHg (35-45) L 10/21/16 10:50 ABG pO2 36 mmHg (85-104) L* 10/21/16 10:50 ABG O2 Saturation 67 % (95-98) L 10/21/16 10:50 PT/INR, D-dimer PT 13.9 Seconds (9.4-12.1) H 10/16/16 15:57 Abnormal lab findings: Abnormal lab results RBC 2.85 M/mcL (3.82-4.97) L 10/21/16 05:40 Hgb 8.2 g/dL (11.5-15.4) L 10/21/16 05:40 Hct 26.5 % (35.3-44.9) L 10/21/16 05:40 MCHC 30.9 g/dL (31.6-35.5) L 10/21/16 05:40 RDW 26.2 % (11.5-14.5) H 10/21/16 05:40 Plt Count 62 K/mcL (140-400) L 10/21/16 05:40 Platelet Estimate Decreased (Normal) L 10/21/16 05:40 Hypochromasia Present (Not Present) A 10/20/16 22:55 Poikilocytosis 1+ (Not Present) A 10/21/16 05:40 Anisocytosis 2+ (Not Present) A 10/21/16 05:40 Macrocytosis Present (Not Present) A 10/20/16 10:00 Rouleaux Present (Not Present) A 10/20/16 22:55 PT 13.9 Seconds (9.4-12.1) H 10/16/16 15:57 ABG pCO2 33 mmHg (35-45) L 10/21/16 10:50 ABG pO2 36 mmHg (85-104) L* 10/21/16 10:50 ABG HCO3 19 mEq/L (21-27) L 10/21/16 10:50 ABG O2 Saturation 67 % (95-98) L 10/21/16 10:50 ABG Base Excess -5.6 mEq/L (-2.0 to 3.0) L 10/21/16 10:50 Chloride 115 mEq/L (98-109) H 10/21/16 05:40 BUN 79 mg/dL (7-20) H 10/21/16 05:40 Creatinine 2.91 mg/dL (0.57-1.11) H 10/21/16 05:40 Est GFR ( Amer) 19 (> 60) L 10/21/16 05:40 Est GFR (Non-Af Amer) 16 (> 60) L 10/21/16 05:40 BUN/Creatinine Ratio 27 (6-26) H 10/21/16 05:40 Glucose 211 mg/dL (70-99) H 10/21/16 05:40 POC Glucose 260 (58-89) H 10/20/16 23:37 Calculated Osmolality 330 (280-300) H 10/21/16 05:40 Lactic Acid 2.5 mmol/L (0.5-2.2) H 10/17/16 05:05 Total Bilirubin 2.7 mg/dL (0.2-1.2) H 10/21/16 05:40 Direct Bilirubin 0.8 mg/dL (0.0-0.5) H 10/16/16 15:57 Ur Specimen Adequacy See below A 10/19/16 09:59 Urine Clarity Cloudy (Clear) A 10/19/16 09:59 Ur Specific Mobile 1.026 (1.010-1.025) H 10/19/16 09:59 Urine Protein 30 mg/dL (Neg-Trace) H 10/19/16 09:59 Urine Ketones Trace mg/dL (Negative) H 10/19/16 09:59 Urine Blood Trace (Negative) H 10/19/16 09:59 Ur Leukocyte Esterase Small (Negative) H 10/19/16 09:59 Urine Microscopic RBC 3-5 per hpf (0-3) H 10/19/16 09:59 Urine Microscopic WBC 5-15 per hpf (0-3) H 10/19/16 09:59 Ur Squamous Epith Cells Many per lpf (None-Few) H 10/19/16 09:59 Ur Culture Indicated? YES (NO) A 10/19/16 09:59 Urine Opiates Screen Positive ng/mL (Diknkj=296) H 10/16/16 17:38 U Benzodiazepines Scrn Positive ng/mL (Qssnsd=933) H 10/16/16 17:38 - Microbiology Findings Microbiology Findings: Microbiology, Last 48 Hours 10/19/16 09:59 Urine Culture - Final Urine,Clean Catch No growth. 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 Cardiac : Hemodynamically stable Nutrition/GI: Patient is too lethargic today could not take her encephalopathy medications will try lactulose enema if she doesnt wake up appropriately . End stage liver disease palliative care consultation, patient does not meet criteria for hospice yet based on the synthetic function of the liver Renal : SAUL , renal consultation gave opinion that patient is more PRERENAL picture rather than hepatorenal syndrome . Heme onc : Thrombocytopenia no acute issues will hold off heparin. ID : [email or web address] for aspiration pneumonia once the respiratory status improves will deescalate soon. Musculo skeletal / skin issues : Poor nutrition skin tear noted Disposition : Patient's son eventually wants her to go home if her dyspnea is controlled with current regimen will transfer to the floor with instructions not to use BIPAP any more . Code status: DNR A with DNI Family/POA: Son was updated by me and .
--- NOTE | 2016-10-21 08:10 | Nephrology Progress Note ---
Date of Encounter: 10/21/16 Time of Encounter: 08:09 - Assessment and Plan (1) Acute kidney failure, unspecified Current Visit: Yes Status: Acute Patient has acute kidney injury superimposed on stage IV chronic kidney disease. Renal function continues to slowly improve. Urine sodium is not extremely low making the possibility of hepatorenal syndrome less likely. The patient may have component of volume depletion. She has been receiving albumin. Chest x-ray reportedly is clear. I would recommend starting the patient on some hypotonic fluids since her sodium was 145. Qualifiers: Acute renal failure type: unspecified Qualified Code(s): N17.9 - Acute kidney failure, unspecified (2) Chronic kidney disease, stage IV (severe) Current Visit: Yes Status: Acute (3) Hepatic encephalopathy Current Visit: Yes Status: Acute (4) Anemia of chronic disease Current Visit: Yes Status: Acute Subjective Principal diagnosis: Hepatic Encephalopathy Interval history: Patient remains on BiPAP. She appears critically ill. Serum creatinine continues to slowly increase. Urine output yesterday is on record is 375 mL. Hemoglobin is improved 8.2 following transfusion. Blood pressure is stable. Objective - Vital Signs Vital signs: Vital Signs Temp Pulse Resp BP Pulse Ox 10/21/16 07:40 60 25 133/68 97 10/21/16 07:31 97.6 F 10/21/16 06:11 13 95 10/21/16 06:00 61 14 134/73 91 10/21/16 05:07 98.5 F 10/21/16 05:00 63 16 125/66 91 10/21/16 04:37 18 99 10/21/16 04:00 61 23 116/60 99 10/21/16 03:00 60 22 139/98 95 10/21/16 02:00 60 20 152/71 95 10/21/16 01:00 59 20 143/78 96 10/21/16 00:12 98.2 F 10/21/16 00:00 61 22 121/51 95 10/20/16 23:00 62 20 129/58 98 10/20/16 22:00 61 20 141/71 99 10/20/16 21:28 98.2 F 10/20/16 21:00 62 18 140/73 95 10/20/16 20:00 64 24 126/55 93 10/20/16 19:00 63 22 134/59 99 10/20/16 18:09 24 154/84 100 10/20/16 18:00 67 22 154/82 99 10/20/16 17:31 98.3 F 65 24 154/84 94 10/20/16 17:23 65 23 154/84 100 10/20/16 16:15 98.1 F 65 24 137/87 100 10/20/16 16:00 65 10/20/16 15:15 65 21 145/75 97 10/20/16 15:07 98.1 F 66 20 151/54 94 10/20/16 14:52 97.4 F L 69 22 127/95 98 10/20/16 14:15 67 21 145/78 98 10/20/16 13:23 80 19 132/84 100 10/20/16 12:00 78 19 126/49 99 10/20/16 11:46 20 122/49 97 10/20/16 11:33 98.0 F 10/20/16 11:00 77 28 122/49 94 10/20/16 10:00 80 24 152/75 93 10/20/16 09:00 77 23 137/58 97 Intake and Output 10/20/16 10/21/16 10/21/16 23:59 07:59 15:59 Intake Total 540 / 540 Output Total 150 / 150 175 / 175 Balance 390 / 390 -175 / -175 Intake: Oral 240 / 240 Blood Product 300 / 300 Rbcs Leuko Poor As-1 300 / 300 Unit [id number] Output: Catheter 150 / 150 175 / 175 Other: Stool Size Large Moderate Stool Consistency loose loose liquid liquid Stool Color Yellow Green # Bowel Movements 1 1 Weight 80.6 kg Blood Glucose* 223 Patient Weight 10/21/16 23:59 Weight 80.6 kg - General Appearance Exam: Patient is on BiPAP. She appears critically ill. She appears quite debilitated. Lungs somewhat to manage breath sounds otherwise clear. Heart regular rate and rhythm. Abdomen is distended. Ventral hernia is present. There is no peripheral edema. - Lab 10/21/16 05:40 10/21/16 05:40 Most recent lab results ABG pH 7.43 pH Units (7.32-7.45) 10/18/16 03:45 ABG pCO2 29 mmHg (35-45) L 10/18/16 03:45 ABG pO2 101 mmHg (85-104) 10/18/16 03:45 ABG HCO3 19 mEq/L (21-27) L 10/18/16 03:45 ABG O2 Saturation 98 % (95-98) 10/18/16 03:45 Calcium 8.9 mg/dL (8.6-10.8) 10/21/16 05:40 Phosphorus 3.0 mg/dL (2.3-4.7) 10/16/16 15:57 Magnesium 2.5 mg/dL (1.6-2.6) 10/16/16 15:57 Urine Creatinine 128 mg/dL 10/19/16 08:36 Urine Sodium 25.0 mEq/L 10/20/16 11:30 - VTE Documentation of Mechanical Device: Intermittent pneumatic compression device Consult Discharge Plan - Plan Referrals: NONE,PCP [Primary Care Provider] -
--- NOTE | 2016-10-21 08:55 | Palliative Progress Note ---
<HodanTimur - Last Filed: 10/21/16 08:51> Date of Encounter: 10/21/16 Time of Encounter: 08:51 - Assessment and plan (1) Counseling regarding advanced care planning and goals of care Current Visit: No Status: Acute Assessment and plan: Patient and son, PoA, main goal is for patient to return to home living with as much functionality as possible and comfort care. Son is PoA, and Code Status remain DNR CCA DNI. Patient lives at home with her son, who assists with ADL. Patient at baseline is able to prepare food and shower independently. Patient currently does not meet criteria for Cirrhosis w/ Ascites hospice, but will consider very soon. Palliative Care will continue to follow. Did not receive symptomatic paracentesis yesterday due to lack of fluid. (2) Hepatic encephalopathy Current Visit: No Status: Chronic Assessment and plan: Patient was able to communicate person and place today. Continues to progress back to [facility] (3) Diabetes Current Visit: No Status: Chronic Assessment and plan: continue ICU team recommendations Qualifiers: Diabetes mellitus type: type 2 Diabetes mellitus complication status: with kidney complications Diabetes mellitus complication detail: with chronic kidney disease Diabetes mellitus halfway insulin use: with buttermaker continuous churn use Chronic kidney disease stage: stage 3 (moderate) Qualified Code(s): E11.22 - Type 2 diabetes mellitus with diabetic chronic kidney disease; N18.3 - Chronic kidney disease, stage 3 (moderate); Z79.4 - halfway (current) use of insulin (4) CKD (chronic kidney disease) stage 4, GFR 15-29 ml/min Current Visit: No Status: Chronic Assessment and plan: continue ICU team recommendations - Time Spent With Patient Total time spent is greater than 50% in coordination of care (as documented) at patient's floor/unit and/or counseling patient: - Subjective Interval history: Ms. Flores is a 76 year old female who was admitted due to hepatic encephalopathy with a hx of diabetes, ckd, ELLIOTT cirrhosis of liver w/ ascites, and weekly paracentesis. Patient on average has 5-6 liters of fluid taken off during paracentesis, last week's paracentesis 3.5 liters were taken off. Today son was not present to discuss patient status. Patient was on Bipap, but she verbally communicated that she was comfortable and that she was feeling better today. Patient continues to state that she's not ready for hospice and would like to go home. - Constitutional Vitals: Abnormal lab results RBC 2.85 M/mcL (3.82-4.97) L 10/21/16 05:40 Hgb 8.2 g/dL (11.5-15.4) L 10/21/16 05:40 Hct 26.5 % (35.3-44.9) L 10/21/16 05:40 MCHC 30.9 g/dL (31.6-35.5) L 10/21/16 05:40 RDW 26.2 % (11.5-14.5) H 10/21/16 05:40 Plt Count 62 K/mcL (140-400) L 10/21/16 05:40 Platelet Estimate Decreased (Normal) L 10/21/16 05:40 Hypochromasia Present (Not Present) A 10/20/16 22:55 Poikilocytosis 1+ (Not Present) A 10/21/16 05:40 Anisocytosis 2+ (Not Present) A 10/21/16 05:40 Macrocytosis Present (Not Present) A 10/20/16 10:00 Rouleaux Present (Not Present) A 10/20/16 22:55 PT 13.9 Seconds (9.4-12.1) H 10/16/16 15:57 ABG pCO2 29 mmHg (35-45) L 10/18/16 03:45 ABG HCO3 19 mEq/L (21-27) L 10/18/16 03:45 ABG Base Excess -4.4 mEq/L (-2.0 to 3.0) L 10/18/16 03:45 Chloride 115 mEq/L (98-109) H 10/21/16 05:40 BUN 79 mg/dL (7-20) H 10/21/16 05:40 Creatinine 2.91 mg/dL (0.57-1.11) H 10/21/16 05:40 Est GFR ( Amer) 19 (> 60) L 10/21/16 05:40 Est GFR (Non-Af Amer) 16 (> 60) L 10/21/16 05:40 BUN/Creatinine Ratio 27 (6-26) H 10/21/16 05:40 Glucose 211 mg/dL (70-99) H 10/21/16 05:40 POC Glucose 260 (58-89) H 10/20/16 23:37 Calculated Osmolality 330 (280-300) H 10/21/16 05:40 Lactic Acid 2.5 mmol/L (0.5-2.2) H 10/17/16 05:05 Total Bilirubin 2.7 mg/dL (0.2-1.2) H 10/21/16 05:40 Direct Bilirubin 0.8 mg/dL (0.0-0.5) H 10/16/16 15:57 Ur Specimen Adequacy See below A 10/19/16 09:59 Urine Clarity Cloudy (Clear) A 10/19/16 09:59 Ur Specific Bruning 1.026 (1.010-1.025) H 10/19/16 09:59 Urine Protein 30 mg/dL (Neg-Trace) H 10/19/16 09:59 Urine Ketones Trace mg/dL (Negative) H 10/19/16 09:59 Urine Blood Trace (Negative) H 10/19/16 09:59 Ur Leukocyte Esterase Small (Negative) H 10/19/16 09:59 Urine Microscopic RBC 3-5 per hpf (0-3) H 10/19/16 09:59 Urine Microscopic WBC 5-15 per hpf (0-3) H 10/19/16 09:59 Ur Squamous Epith Cells Many per lpf (None-Few) H 10/19/16 09:59 Ur Culture Indicated? YES (NO) A 10/19/16 09:59 Urine Opiates Screen Positive ng/mL ([id number]=761) H 10/16/16 17:38 U Benzodiazepines Scrn Positive ng/mL (Jcfwtu=924) H 10/16/16 17:38 - Respiratory Respiratory exam: Present: decreased breath sounds - Cardiovascular Cardiovascular exam: Present: RRR - Extremities Exam Additional comments: extremities were cool to touch. radial pulses bilaterally +1/4 - Neurological Exam Neurological exam: Present: alert (oriented to place and person) - Psychiatric Psychiatric exam: Present: normal affect, normal mood Palliative Quality Palliative Quality: Screen for Code Status: Yes, Screen for Goals of Care: Yes, Screen for Pain: Yes, If Pain Regimen Started, Initiate Bowel Regimen: NA, Screen for Nausea/Vomitting: Yes Code Status: 10/16/16 18:30 Resuscitation Status: Active [RES] Routine Comment: Resuscitation Status: DNR-Comfort Care-Arrest 10/19/16 10:05 Resuscitation Status: Active [RES] Routine Comment: Resuscitation Status: [id number] - Labs CBC & Chem 7: 10/21/16 05:40 10/21/16 05:40 Labs: Laboratory Results - last 24 hr 10/20/16 10/20/16 10/20/16 10:00 11:02 11:30 WBC 4.6 RBC 2.19 L Hgb 6.8 L Hct 22.6 L MCV 103.2 H MCH 31.1 MCHC 30.1 L RDW 18.4 H Plt Count 57 L MPV 11.3 Immature Gran % 0.4 Seg Neutrophils % 71.1 Lymphocytes % 13.5 Monocytes % 12.2 Eosinophils % 2.4 Basophils % 0.4 Neutrophils # 3.3 Lymphocytes # 0.6 Monocytes # 0.6 Eosinophils # 0.1 Basophils # 0.0 Platelet Estimate Decreased L Immature Plt Fraction 4.7 Hypochromasia Poikilocytosis Anisocytosis 1+ A Macrocytosis Present A Rouleaux Sodium Potassium Chloride Carbon Dioxide BUN Creatinine Est GFR ( Amer) Est GFR (Non-Af Amer) BUN/Creatinine Ratio Glucose POC Glucose 160 H Calculated Osmolality Calcium Total Bilirubin AST ALT Alkaline Phosphatase Serum Total Protein Albumin Globulin Albumin/Globulin Ratio Urine Sodium Blood Type O POSITIVE Antibody Screen NEGATIVE Crossmatch See Detail 10/20/16 10/20/16 10/20/16 11:30 22:55 23:37 WBC 5.9 RBC 2.75 L Hgb 8.0 L Hct 25.6 L MCV 93.1 D MCH 29.1 MCHC 31.3 L RDW 26.0 H Plt Count 65 L MPV 10.7 Immature Gran % 0.8 Seg Neutrophils % 73.2 Lymphocytes % 9.2 Monocytes % 14.6 Eosinophils % 1.9 Basophils % 0.3 Neutrophils # 4.3 Lymphocytes # 0.5 L Monocytes # 0.9 Eosinophils # 0.1 Basophils # 0.0 Platelet Estimate Decreased L Immature Plt Fraction 4.5 Hypochromasia Present A Poikilocytosis Anisocytosis 2+ A Macrocytosis Rouleaux Present A Sodium Potassium Chloride Carbon Dioxide BUN Creatinine Est GFR ( Amer) Est GFR (Non-Af Amer) BUN/Creatinine Ratio Glucose POC Glucose 260 H Calculated Osmolality Calcium Total Bilirubin AST ALT Alkaline Phosphatase Serum Total Protein Albumin Globulin Albumin/Globulin Ratio Urine Sodium 25.0 Blood Type Antibody Screen Crossmatch 10/21/16 10/21/16 05:40 05:40 WBC 5.8 RBC 2.85 L Hgb 8.2 L Hct 26.5 L MCV 93.0 MCH 28.8 MCHC 30.9 L RDW 26.2 H Plt Count 62 L MPV 11.7 Immature Gran % 0.5 Seg Neutrophils % 73.8 Lymphocytes % 9.9 Monocytes % 13.4 Eosinophils % 1.9 Basophils % 0.5 Neutrophils # 4.3 Lymphocytes # 0.6 Monocytes # 0.8 Eosinophils # 0.1 Basophils # 0.0 Platelet Estimate Decreased L Immature Plt Fraction 3.9 Hypochromasia Poikilocytosis 1+ A Anisocytosis 2+ A Macrocytosis Rouleaux Sodium 145 Potassium 4.0 Chloride 115 H Carbon Dioxide 19 BUN 79 H Creatinine 2.91 H Est GFR ( Amer) 19 L Est GFR (Non-Af Amer) 16 L BUN/Creatinine Ratio 27 H Glucose 211 H POC Glucose Calculated Osmolality 330 H Calcium 8.9 Total Bilirubin 2.7 H AST 22 ALT 13 Alkaline Phosphatase 76 Serum Total Protein 6.3 Albumin 3.7 D Globulin 2.6 Albumin/Globulin Ratio 1.4 Urine Sodium Blood Type Antibody Screen Crossmatch - Impressions Impressions Abdomen/Pelvis/Transvag US 10/20/16 10:30 IMPRESSION: Small amount of ascites, insufficient for therapeutic paracentesis. D/ / Dane Ferraro MD / Dane Ferraro MD Interpreting Provider: Dane Ferraro MD Chest X-Ray 10/20/16 14:25 IMPRESSION: Probable small right pleural effusion with adjacent atelectasis versus pneumonia. D/ / 10/20/2016 15:16:36 Linnette Pineda MD / efren Interpreting Provider: Linnette Pineda MD Chest X-Ray 10/21/16 04:00 IMPRESSION: Improved aeration of the right lung base, with mild residual atelectasis/ infiltrate. D/ / Inocente Scruggs MD / Inocente Scruggs MD Interpreting Provider: Inocente Scruggs MD - ABG Interpretation ABG results: ABG ABG pH 7.43 pH Units (7.32-7.45) 10/18/16 03:45 ABG pCO2 29 mmHg (35-45) L 10/18/16 03:45 ABG pO2 101 mmHg (85-104) 10/18/16 03:45 ABG O2 Saturation 98 % (95-98) 10/18/16 03:45 PT/INR, D-dimer PT 13.9 Seconds (9.4-12.1) H 10/16/16 15:57 Consult Discharge Plan - Plan Referrals: NONE,PCP [Primary Care Provider] - <Dave Cristobal - Last Filed: 10/21/16 09:53> Date of Encounter: 10/21/16 - Time Spent With Patient Total time spent is greater than 50% in coordination of care (as documented) at patient's floor/unit and/or counseling patient: - Constitutional Vitals: Abnormal lab results RBC 2.85 M/mcL (3.82-4.97) L 10/21/16 05:40 Hgb 8.2 g/dL (11.5-15.4) L 10/21/16 05:40 Hct 26.5 % (35.3-44.9) L 10/21/16 05:40 MCHC 30.9 g/dL (31.6-35.5) L 10/21/16 05:40 RDW 26.2 % (11.5-14.5) H 10/21/16 05:40 Plt Count 62 K/mcL (140-400) L 10/21/16 05:40 Platelet Estimate Decreased (Normal) L 10/21/16 05:40 Hypochromasia Present (Not Present) A 10/20/16 22:55 Poikilocytosis 1+ (Not Present) A 10/21/16 05:40 Anisocytosis 2+ (Not Present) A 10/21/16 05:40 Macrocytosis Present (Not Present) A 10/20/16 10:00 Rouleaux Present (Not Present) A 10/20/16 22:55 PT 13.9 Seconds (9.4-12.1) H 10/16/16 15:57 ABG pCO2 29 mmHg (35-45) L 10/18/16 03:45 ABG HCO3 19 mEq/L (21-27) L 10/18/16 03:45 ABG Base Excess -4.4 mEq/L (-2.0 to 3.0) L 10/18/16 03:45 Chloride 115 mEq/L (98-109) H 10/21/16 05:40 BUN 79 mg/dL (7-20) H 10/21/16 05:40 Creatinine 2.91 mg/dL (0.57-1.11) H 10/21/16 05:40 Est GFR ( Amer) 19 (> 60) L 10/21/16 05:40 Est GFR (Non-Af Amer) 16 (> 60) L 10/21/16 05:40 BUN/Creatinine Ratio 27 (6-26) H 10/21/16 05:40 Glucose 211 mg/dL (70-99) H 10/21/16 05:40 POC Glucose 260 (58-89) H 10/20/16 23:37 Calculated Osmolality 330 (280-300) H 10/21/16 05:40 Lactic Acid 2.5 mmol/L (0.5-2.2) H 10/17/16 05:05 Total Bilirubin 2.7 mg/dL (0.2-1.2) H 10/21/16 05:40 Direct Bilirubin 0.8 mg/dL (0.0-0.5) H 10/16/16 15:57 Ur Specimen Adequacy See below A 10/19/16 09:59 Urine Clarity Cloudy (Clear) A 10/19/16 09:59 Ur Specific Bruning 1.026 (1.010-1.025) H 10/19/16 09:59 Urine Protein 30 mg/dL (Neg-Trace) H 10/19/16 09:59 Urine Ketones Trace mg/dL (Negative) H 10/19/16 09:59 Urine Blood Trace (Negative) H 10/19/16 09:59 Ur Leukocyte Esterase Small (Negative) H 10/19/16 09:59 Urine Microscopic RBC 3-5 per hpf (0-3) H 10/19/16 09:59 Urine Microscopic WBC 5-15 per hpf (0-3) H 10/19/16 09:59 Ur Squamous Epith Cells Many per lpf (None-Few) H 10/19/16 09:59 Ur Culture Indicated? YES (NO) A 10/19/16 09:59 Urine Opiates Screen Positive ng/mL (Spuisr=984) H 10/16/16 17:38 U Benzodiazepines Scrn Positive ng/mL (Rhbckg=650) H 10/16/16 17:38 - Attending Attestation I examined this patient and my medical decision-making was reviewed with the Resident Physician. I agree with the documented findings, disposition and treatment plan as described except to the extent set forth below. Palliative Quality Code Status: 10/16/16 18:30 Resuscitation Status: Active [RES] Routine Comment: Resuscitation Status: DNR-Comfort Care-Arrest 10/19/16 10:05 Resuscitation Status: Active [RES] Routine Comment: Resuscitation Status: [id number] - Labs CBC & Chem 7: 10/21/16 05:40 10/21/16 05:40 Labs: Laboratory Results - last 24 hr 10/20/16 10/20/16 10/20/16 10:00 11:02 11:30 WBC 4.6 RBC 2.19 L Hgb 6.8 L Hct 22.6 L MCV 103.2 H MCH 31.1 MCHC 30.1 L RDW 18.4 H Plt Count 57 L MPV 11.3 Immature Gran % 0.4 Seg Neutrophils % 71.1 Lymphocytes % 13.5 Monocytes % 12.2 Eosinophils % 2.4 Basophils % 0.4 Neutrophils # 3.3 Lymphocytes # 0.6 Monocytes # 0.6 Eosinophils # 0.1 Basophils # 0.0 Platelet Estimate Decreased L Immature Plt Fraction 4.7 Hypochromasia Poikilocytosis Anisocytosis 1+ A Macrocytosis Present A Rouleaux Sodium Potassium Chloride Carbon Dioxide BUN Creatinine Est GFR ( Amer) Est GFR (Non-Af Amer) BUN/Creatinine Ratio Glucose POC Glucose 160 H Calculated Osmolality Calcium Total Bilirubin AST ALT Alkaline Phosphatase Serum Total Protein Albumin Globulin Albumin/Globulin Ratio Urine Sodium Blood Type O POSITIVE Antibody Screen NEGATIVE Crossmatch See Detail 10/20/16 10/20/16 10/20/16 11:30 22:55 23:37 WBC 5.9 RBC 2.75 L Hgb 8.0 L Hct 25.6 L MCV 93.1 D MCH 29.1 MCHC 31.3 L RDW 26.0 H Plt Count 65 L MPV 10.7 Immature Gran % 0.8 Seg Neutrophils % 73.2 Lymphocytes % 9.2 Monocytes % 14.6 Eosinophils % 1.9 Basophils % 0.3 Neutrophils # 4.3 Lymphocytes # 0.5 L Monocytes # 0.9 Eosinophils # 0.1 Basophils # 0.0 Platelet Estimate Decreased L Immature Plt Fraction 4.5 Hypochromasia Present A Poikilocytosis Anisocytosis 2+ A Macrocytosis Rouleaux Present A Sodium Potassium Chloride Carbon Dioxide BUN Creatinine Est GFR ( Amer) Est GFR (Non-Af Amer) BUN/Creatinine Ratio Glucose POC Glucose 260 H Calculated Osmolality Calcium Total Bilirubin AST ALT Alkaline Phosphatase Serum Total Protein Albumin Globulin Albumin/Globulin Ratio Urine Sodium 25.0 Blood Type Antibody Screen Crossmatch 10/21/16 10/21/16 05:40 05:40 WBC 5.8 RBC 2.85 L Hgb 8.2 L Hct 26.5 L MCV 93.0 MCH 28.8 MCHC 30.9 L RDW 26.2 H Plt Count 62 L MPV 11.7 Immature Gran % 0.5 Seg Neutrophils % 73.8 Lymphocytes % 9.9 Monocytes % 13.4 Eosinophils % 1.9 Basophils % 0.5 Neutrophils # 4.3 Lymphocytes # 0.6 Monocytes # 0.8 Eosinophils # 0.1 Basophils # 0.0 Platelet Estimate Decreased L Immature Plt Fraction 3.9 Hypochromasia Poikilocytosis 1+ A Anisocytosis 2+ A Macrocytosis Rouleaux Sodium 145 Potassium 4.0 Chloride 115 H Carbon Dioxide 19 BUN 79 H Creatinine 2.91 H Est GFR ( Amer) 19 L Est GFR (Non-Af Amer) 16 L BUN/Creatinine Ratio 27 H Glucose 211 H POC Glucose Calculated Osmolality 330 H Calcium 8.9 Total Bilirubin 2.7 H AST 22 ALT 13 Alkaline Phosphatase 76 Serum Total Protein 6.3 Albumin 3.7 D Globulin 2.6 Albumin/Globulin Ratio 1.4 Urine Sodium Blood Type Antibody Screen Crossmatch - Impressions Impressions Abdomen/Pelvis/Transvag US 10/20/16 10:30 IMPRESSION: Small amount of ascites, insufficient for therapeutic paracentesis. D/ / Dane Ferraro MD / Dane Ferraro MD Interpreting Provider: Dane Ferraro MD Chest X-Ray 10/20/16 14:25 IMPRESSION: Probable small right pleural effusion with adjacent atelectasis versus pneumonia. D/ / 10/20/2016 15:16:36 Linnette Pineda MD / [facility] Interpreting Provider: Linnette Pineda MD Chest X-Ray 10/21/16 04:00
[2016-10-21] MEDS: Pantoprazole 40 MG VIAL IVPB SCH (09:38)
[2016-10-21] MEDS: FLUoxetine 20 MG CAPSULE PO SCH (09:42)
[2016-10-21] MEDS: Aspirin 81 MG TAB.CHEW PO SCH (09:43)
[2016-10-21 10:57] LABS: ABG Base Excess -5.6 mEq/L (-2.0 to 3.0); ABG HCO3 19 mEq/L (21-27); ABG Oxygen Saturation 67 % (95-98); ABG PCO2 33 mmHg (35-45); ABG PH 7.37 pH Units (7.32-7.45); ABG TCO2 20.1 mEq/L (20-26)
[2016-10-21 11:02] LABS: ABG PO2 36 mmHg (85-104)
[2016-10-21 11:03] LABS: Blood Gas FiO2 21 %
[2016-10-21] MEDS ORDERED: *HR* LORazepam 0.5 MG TABLET PO PRN (11:28)
[2016-10-21] MEDS ORDERED: *HR* HYDROmorphone 2 MG/ML SYRINGE IVP PRN (11:45)
[2016-10-21] MEDS ORDERED: *HR* LORazepam 2 MG/ML VIAL IVP PRN (11:47)
--- NOTE | 2016-10-21 12:45 | Event Note ---
Date of Encounter: 10/21/16 Time of Encounter: 12:42 extensive discussion with patients son regarding her inability to lie flat and be cleaned up while suffering O2 desaturation. BiPAP has been used to deal with this and has been effective, however the patient is having a hard time tolerating it at times. I suggested trying medications and stopping the BiPAP altogether. Currently the patient does not meet hospice criteria on the basis of liver or kidney function, however she remains hypoxemic spite all interventions then from a respiratory standpoint she would E eligible for hospice as all medical and use had been attempted and failed. She will be discharged from the unit, to the floor there will be no BiPAP used Dilaudid and Ativan are available on a when necessary basis to allow for nursing to clean up the patient when she has bowel movements due to the lactulose. If she does well she will go home with home health if she does not do well she will be hospice eligible.
[2016-10-21] MEDS ORDERED: Ampicillin/Sulbactam 3,000 MG in 0.9 % Sodium Chloride Mini Bag 100 ML IVPB SCH (18:00)
[2016-10-22] MEDS: Lactulose Oral Soln 20 GM/30 ML UDC PO SCH ×4 (01:44→14:35)
[2016-10-22] MEDS: Insulin LISPRO 300 UNITS/3 ML VIAL SQ SCH ×4 (01:44→19:06)
[2016-10-22] MEDS ORDERED: *HR* Promethazine 25 MG/ML VIAL IVP PRN ×2 (03:19→09:28)
[2016-10-22] MEDS ORDERED: Ondansetron 4 MG/2 ML VIAL IVP PRN ×2 (03:19→09:28)
[2016-10-22 06:45] LABS: Calcium 9.1 mg/dL (8.6-10.8); Potassium 4.5 mEq/L (3.5-4.5)
--- NOTE | 2016-10-22 07:01 | Pulmonology Progress Note ---
<Nico Tomlinson - Last Filed: 10/22/16 11:27> Date of Encounter: 10/22/16 Time of Encounter: 07:01 Assessment and Plan (1) Hepatic encephalopathy Current Visit: Yes Status: Acute IR did not perform paracentesis because limited ascites fluid volume. Continue lactulose and rifaximin. Given albumin yesterday. Patient DNR CCA /DNI. Continue to monitor patient's mental status and frequent neuro exams. Prognosis guarded. Continue palliative care treatment plan. Continue Dilaudid and Ativan. DIcontinue BiPap. Anticipate transfer out of ICU today (2) Aspiration pneumonia Current Visit: Yes Status: Acute Completed Unasysn total of 6 days of treatment. Dicontinue BiPap Qualifiers: Aspiration pneumonia type: unspecified Laterality: right Lung location: unspecified part of lung Qualified Code(s): J69.0 - Pneumonitis due to inhalation of food and vomit (3) Chronic kidney disease, stage IV (severe) Current Visit: Yes Status: Acute SAUL superimposed on CKD 4. Creat slow improvement. Nephro following. Continue fluid restrictions and monitor I&Os. (4) Decubitus ulcer of buttock, stage 2 Current Visit: Yes Status: Acute Present on admission. Continue current management Qualifiers: Laterality: left Qualified Code(s): L89.322 - Pressure ulcer of left buttock, stage 2 (5) DVT prophylaxis Current Visit: Yes Status: Acute SCDs placed due to low platelet count Subjective Principal diagnosis: Hepatic Encephalopathy Interval history: Patient seen and examined. Patient resting comfortably in bed on 4L NC with SpO2 98% and reports no complaints. Nursing reports 100cc urine output overnight. Palliative care continuing symptomatic treatment with Dilaudid and Ativan. Currently the patient does not meet hospice criteria on the basis of liver or kidney function, however she remains hypoxemic from a respiratory standpoint. Discontinued BiPap. Anticipate transfer out of the ICU today. Objective PUL Vital signs: Last Vital Signs Temp 97.8 F 10/22/16 04:00 Pulse 67 10/22/16 06:00 Resp 16 10/22/16 06:00 BP 109/87 10/22/16 06:00 Pulse Ox 96 10/22/16 06:00 General appearance: no acute distress, other (resting comfortably, follows commands, ) Eyes: nonicteric ENT: oropharynx dry Neck: supple, no lymphadenopathy Effort: mildly labored, other (on 4L NC) Auscultation: bilateral: diminished breath sounds Cardiovascular: regular rate and rhythm Gastrointestinal: normoactive bowel sounds, soft, non-tender, other (mild distension, unappreciable fluid wave) Integumentary: decubitus ulcer Extremities: pink and warm, edema (1+) Musculoskeletal: no deformities non-focal exam, other (altered mental status) other (unable to asscess) Results - Laboratory Findings CBC and BMP: 10/22/16 07:08 10/22/16 06:20 ABG ABG pH 7.37 pH Units (7.32-7.45) 10/21/16 10:50 ABG pCO2 33 mmHg (35-45) L 10/21/16 10:50 ABG pO2 36 mmHg (85-104) L* 10/21/16 10:50 ABG O2 Saturation 67 % (95-98) L 10/21/16 10:50 PT/INR, D-dimer PT 13.9 Seconds (9.4-12.1) H 10/16/16 15:57 Abnormal lab findings: Abnormal lab results RBC 2.85 M/mcL (3.82-4.97) L 10/21/16 05:40 Hgb 8.2 g/dL (11.5-15.4) L 10/21/16 05:40 Hct 26.5 % (35.3-44.9) L 10/21/16 05:40 MCHC 30.9 g/dL (31.6-35.5) L 10/21/16 05:40 RDW 26.2 % (11.5-14.5) H 10/21/16 05:40 Plt Count 62 K/mcL (140-400) L 10/21/16 05:40 Platelet Estimate Decreased (Normal) L 10/21/16 05:40 Hypochromasia Present (Not Present) A 10/20/16 22:55 Poikilocytosis 1+ (Not Present) A 10/21/16 05:40 Anisocytosis 2+ (Not Present) A 10/21/16 05:40 Macrocytosis Present (Not Present) A 10/20/16 10:00 Rouleaux Present (Not Present) A 10/20/16 22:55 PT 13.9 Seconds (9.4-12.1) H 10/16/16 15:57 ABG pCO2 33 mmHg (35-45) L 10/21/16 10:50 ABG pO2 36 mmHg (85-104) L* 10/21/16 10:50 ABG HCO3 19 mEq/L (21-27) L 10/21/16 10:50 ABG O2 Saturation 67 % (95-98) L 10/21/16 10:50 ABG Base Excess -5.6 mEq/L (-2.0 to 3.0) L 10/21/16 10:50 Chloride 114 mEq/L (98-109) H 10/22/16 06:20 Carbon Dioxide 15 mEq/L (19-29) L 10/22/16 06:20 BUN 79 mg/dL (7-20) H 10/22/16 06:20 Creatinine 2.87 mg/dL (0.57-1.11) H 10/22/16 06:20 Est GFR ( Amer) 19 (> 60) L 10/22/16 06:20 Est GFR (Non-Af Amer) 16 (> 60) L 10/22/16 06:20 BUN/Creatinine Ratio 28 (6-26) H 10/22/16 06:20 Glucose 125 mg/dL (70-99) H 10/22/16 06:20 POC Glucose 240 (58-89) H 10/21/16 23:50 Calculated Osmolality 323 (280-300) H 10/22/16 06:20 Lactic Acid 2.5 mmol/L (0.5-2.2) H 10/17/16 05:05 Total Bilirubin 2.7 mg/dL (0.2-1.2) H 10/21/16 05:40 Direct Bilirubin 0.8 mg/dL (0.0-0.5) H 10/16/16 15:57 Ur Specimen Adequacy See below A 10/19/16 09:59 Urine Clarity Cloudy (Clear) A 10/19/16 09:59 Ur Specific [place] 1.026 (1.010-1.025) H 10/19/16 09:59 Urine Protein 30 mg/dL (Neg-Trace) H 10/19/16 09:59 Urine Ketones Trace mg/dL (Negative) H 10/19/16 09:59 Urine Blood Trace (Negative) H 10/19/16 09:59 Ur Leukocyte Esterase Small (Negative) H 10/19/16 09:59 Urine Microscopic RBC 3-5 per hpf (0-3) H 10/19/16 09:59 Urine Microscopic WBC 5-15 per hpf (0-3) H 10/19/16 09:59 Ur Squamous Epith Cells Many per lpf (None-Few) H 10/19/16 09:59 Ur Culture Indicated? YES (NO) A 10/19/16 09:59 Urine Opiates Screen Positive ng/mL (Tyfvlw=377) H 10/16/16 17:38 U Benzodiazepines Scrn Positive ng/mL (Zrmwqr=528) H 10/16/16 17:38 - Microbiology Findings Microbiology Findings: Microbiology, Last 48 Hours 10/19/16 09:59 Urine Culture - Final Urine,Clean Catch No growth. - Diagnostic Findings Chest x-ray: report reviewed, image reviewed - Clinical Findings Intake & Output: Intake & Output 10/21/16 10/21/16 10/22/16 15:59 23:59 07:59 Intake Total 490 / 490 490 / 490 Output Total 50 / 50 125 / 125 25 / 25 Balance 440 / 440 365 / 365 -25 / -25 Weight 81.41 kg - VTE Documentation of Mechanical Device: Intermittent pneumatic compression device Consult Discharge Plan - Plan Referrals: NONE,PCP [Primary Care Provider] - <Alysha Gurrola S - Last Filed: 10/22/16 19:07> Date of Encounter: 10/22/16 Objective PUL Vital signs: Last Vital Signs Temp 99.4 F 10/22/16 16:00 Pulse 65 10/22/16 16:00 Resp 17 10/22/16 16:00 BP 112/48 10/22/16 16:00 Pulse Ox 97 10/22/16 16:00 Results - Laboratory Findings CBC and BMP: 10/22/16 07:08 10/22/16 06:20 ABG ABG pH 7.37 pH Units (7.32-7.45) 10/21/16 10:50 ABG pCO2 33 mmHg (35-45) L 10/21/16 10:50 ABG pO2 36 mmHg (85-104) L* 10/21/16 10:50 ABG O2 Saturation 67 % (95-98) L 10/21/16 10:50 PT/INR, D-dimer PT 13.9 Seconds (9.4-12.1) H 10/16/16 15:57 Abnormal lab findings: Abnormal lab results RBC 2.89 M/mcL (3.82-4.97) L 10/22/16 07:08 Hgb 8.5 g/dL (11.5-15.4) L 10/22/16 07:08 Hct 26.8 % (35.3-44.9) L 10/22/16 07:08 RDW 25.3 % (11.5-14.5) H 10/22/16 07:08 Plt Count 54 K/mcL (140-400) L 10/22/16 07:08 Monocytes # 1.5 K/mcL (0.0-1.3) H 10/22/16 07:08 Nucleated RBCs/100 WBC 0.5 /100 WBC (0) H 10/22/16 07:08 Platelet Estimate Decreased (Normal) L 10/22/16 07:08 Large Platelets Present (Not Present) A 10/22/16 07:08 Immature Plt Fraction 7.9 % (1.1-6.1) H 10/22/16 07:08 Polychromasia 1+ (Not Present) A 10/22/16 07:08 Hypochromasia Present (Not Present) A 10/20/16 22:55 Poikilocytosis 1+ (Not Present) A 10/22/16 07:08 Anisocytosis 1+ (Not Present) A 10/22/16 07:08 Macrocytosis Present (Not Present) A 10/20/16 10:00 Rouleaux Present (Not Present) A 10/20/16 22:55 PT 13.9 Seconds (9.4-12.1) H 10/16/16 15:57 ABG pCO2 33 mmHg (35-45) L 10/21/16 10:50 ABG pO2 36 mmHg (85-104) L* 10/21/16 10:50 ABG HCO3 19 mEq/L (21-27) L 10/21/16 10:50 ABG O2 Saturation 67 % (95-98) L 10/21/16 10:50 ABG Base Excess -5.6 mEq/L (-2.0 to 3.0) L 10/21/16 10:50 Chloride 114 mEq/L (98-109) H 10/22/16 06:20 Carbon Dioxide 15 mEq/L (19-29) L 10/22/16 06:20 BUN 79 mg/dL (7-20) H 10/22/16 06:20 Creatinine 2.87 mg/dL (0.57-1.11) H 10/22/16 06:20 Est GFR ( Amer) 19 (> 60) L 10/22/16 06:20 Est GFR (Non-Af Amer) 16 (> 60) L 10/22/16 06:20 BUN/Creatinine Ratio 28 (6-26) H 10/22/16 06:20 Glucose 125 mg/dL (70-99) H 10/22/16 06:20 POC Glucose 240 (58-89) H 10/21/16 23:50 Calculated Osmolality 323 (280-300) H 10/22/16 06:20 Lactic Acid 2.5 mmol/L (0.5-2.2) H 10/17/16 05:05 Total Bilirubin 2.7 mg/dL (0.2-1.2) H 10/21/16 05:40 Direct Bilirubin 0.8 mg/dL (0.0-0.5) H 10/16/16 15:57 Ur Specimen Adequacy See below A 10/19/16 09:59 Urine Clarity Cloudy (Clear) A 10/19/16 09:59 Ur Specific [place] 1.026 (1.010-1.025) H 10/19/16 09:59 Urine Protein 30 mg/dL (Neg-Trace) H 10/19/16 09:59 Urine Ketones Trace mg/dL (Negative) H 10/19/16 09:59 Urine Blood Trace (Negative) H 10/19/16 09:59 Ur Leukocyte Esterase Small (Negative) H 10/19/16 09:59 Urine Microscopic RBC 3-5 per hpf (0-3) H 10/19/16 09:59 Urine Microscopic WBC 5-15 per hpf (0-3) H 10/19/16 09:59 Ur Squamous Epith Cells Many per lpf (None-Few) H 10/19/16 09:59 Ur Culture Indicated? YES (NO) A 10/19/16 09:59 Urine Opiates Screen Positive ng/mL (Ljcdvi=499) H 10/16/16 17:38 U Benzodiazepines Scrn Positive ng/mL (Cvudeh=785) H 10/16/16 17:38 - Clinical Findings Intake & Output: Intake & Output 10/22/16 10/22/16 10/22/16 07:59 15:59 23:59 Intake Total 120 / 120 Output Total 100 / 100 25 / 25 Balance -100 / -100 120 / 120 -25 / -25 Weight 81.41 kg - Attending Attestation I saw the patient with the resident agree with History and Physical exam findings with with additional findings of some scattered rales on both sides Labs and Radiology were reviewed Patient was off BIPAP overnight SITE IDENTIFICATION SPECIALIST:Patient is lethargic but follow commands but not fully back to baseline we will continue treatment for hepatic encephalopathy NECK : No JVD appreciated Pulmonary : Discussed with son yesterday t gets anxious on BIPAP patient was not on BIPAP overnight with opioids and Benzodiazepine to relieve her dyspneic was controlled her oxygenation was stable without BIPAP.. Cardiac : Hemodynamically stable Nutrition/GI: Patient took her medications today , ESLD , scanned her abdomen moderate amount of ascites no good pocket to tap . So paracentesis was not attempted Renal : Acute on chronic kidney injury more of prerenal than hepatorenal syndrome Renal following Heme onc : Thrombocytopenia no acute issues will hold off heparin. ID : Will stop unasyn there is no evidence of pneumonia , more the V/Q mismatch due to fluid overlaod Musculo skeletal / skin issues : Poor nutrition skin tear noted Disposition : Patient's son eventually wants her to go home if her dyspnea is controlled with current regimen will transfer to the floor with instructions not to use BIPAP any more . Transfer to the floor Code status: DNR A with DNI Family/POA: Son was updated by me.
[2016-10-22 07:20] LABS: Basophils % 0.4 %; Eosinophils # 0.1 K/mcL (0.0-0.6); Eosinophils % 1.2 %; Hematocrit 26.8 % (35.3-44.9); Hemoglobin 8.5 g/dL (11.5-15.4); Immature Granulocytes % 0.6 % (0-4); Immature Platelets 7.9 % (1.1-6.1); Lymphocytes # 0.7 K/mcL (0.6-4.6); Mean Corpuscular HGB Conc 31.7 g/dL (31.6-35.5); Mean Corpuscular Hemoglobin 29.4 pg (28.0-33.3); Mean Corpuscular Volume 92.7 fL (83.0-100.0); Mean Platelet Volume 12.3 fL (9.4-12.4); Monocytes # 1.5 K/mcL (0.0-1.3); Monocytes % 19.6 %; Neutrophils # 5.4 K/mcL (1.6-8.9); Nucleated Red Blood Cells 0.5 /100 WBC (0); Red Blood Count 2.89 M/mcL (3.82-4.97); Red Cell Distribution Width 25.3 % (11.5-14.5); Segmented Neutrophils % 69.2 %
[2016-10-22 08:05] LABS: Platelet Count 54 K/mcL (140-400)
--- NOTE | 2016-10-22 08:05 | Nephrology Progress Note ---
Date of Encounter: 10/22/16 Time of Encounter: 07:45 - Assessment and Plan (1) Acute kidney injury superimposed on chronic kidney disease Current Visit: No Status: Acute SAUL superimposed on CKD 4. Creat slow improvement 2.87. Urine output 350cc. O2 4L nc. Subjective Principal diagnosis: Hepatic Encephalopathy Interval history: Sleeping, O2 NC. Arouses when name called, readily dozes off again. Objective - Vital Signs Vital signs: Vital Signs Temp Pulse Resp BP Pulse Ox 10/22/16 07:25 98.9 F 65 24 124/63 100 10/22/16 06:00 67 16 109/87 96 10/22/16 04:00 97.8 F 64 22 107/72 95 10/22/16 03:28 97.8 F 10/22/16 03:00 67 18 130/57 92 10/22/16 02:00 62 14 125/61 92 10/22/16 01:00 59 14 134/62 97 10/22/16 00:00 97.6 F 61 20 115/49 100 10/21/16 23:49 97.6 F 10/21/16 23:00 59 22 90/41 94 10/21/16 22:00 62 21 111/54 93 10/21/16 21:00 61 26 93/52 92 10/21/16 20:00 62 14 113/47 98 10/21/16 19:00 62 16 118/46 97 10/21/16 18:55 97.4 F L 10/21/16 18:00 61 24 114/56 93 10/21/16 17:00 61 23 98/50 94 10/21/16 16:00 97.1 F L 64 24 118/84 95 10/21/16 15:00 61 24 118/52 96 10/21/16 14:00 60 23 119/48 97 10/21/16 13:00 61 28 104/38 96 10/21/16 12:00 61 20 114/53 97 10/21/16 11:42 97.1 F L 10/21/16 11:11 61 23 125/64 95 10/21/16 10:00 61 26 135/75 93 10/21/16 08:45 60 16 134/68 96 Intake and Output 10/21/16 10/21/16 10/22/16 15:59 23:59 07:59 Intake Total 490 / 490 490 / 490 Output Total 50 / 50 125 / 125 100 / 100 Balance 440 / 440 365 / 365 -100 / -100 Intake: IV Fluids 250 / 250 250 / 250 ALBURX 5% 12.5 gm In 250 250 / 250 250 / 250 ml @ 60 mls/hr IVC . Q4H10M JANKI Rx#:[id number] Oral 240 / 240 240 / 240 Output: Catheter 50 / 50 125 / 125 100 / 100 Other: Stool Size Moderate Stool Consistency loose Stool Color Brown Weight 81.41 kg Blood Glucose* 155 240 130 Patient Weight 10/22/16 23:59 Weight 81.41 kg - General Appearance General appearance: Present: chronically ill, frail Neck: Present: no JVD Respiratory: Present: clear Cardiology: Present: no edema, regular rate, regular rhythm Gastrointestinal: Present: normoactive bowel sounds, no tenderness, distended Integumentary: Present: warm and dry Psychiatric: Present: mood/affect appropriate, cooperative - Lab 10/21/16 05:40 10/22/16 06:20 Most recent lab results ABG pH 7.37 pH Units (7.32-7.45) 10/21/16 10:50 ABG pCO2 33 mmHg (35-45) L 10/21/16 10:50 ABG pO2 36 mmHg (85-104) L* 10/21/16 10:50 ABG HCO3 19 mEq/L (21-27) L 10/21/16 10:50 ABG O2 Saturation 67 % (95-98) L 10/21/16 10:50 Calcium 9.1 mg/dL (8.6-10.8) 10/22/16 06:20 Phosphorus 3.0 mg/dL (2.3-4.7) 10/16/16 15:57 Magnesium 2.5 mg/dL (1.6-2.6) 10/16/16 15:57 Urine Creatinine 128 mg/dL 10/19/16 08:36 Urine Sodium 25.0 mEq/L 10/20/16 11:30 - VTE Documentation of Mechanical Device: Intermittent pneumatic compression device Consult Discharge Plan - Plan Referrals: NONE,PCP [Primary Care Provider] -
[2016-10-22 08:06] LABS: Anisocytosis 1+ (Not Present); Large Platelets Present (Not Present); Platelet Estimate Decreased (Normal)
[2016-10-22 08:07] LABS: Poikilocytosis 1+ (Not Present); Polychromasia 1+ (Not Present)
[2016-10-22] MEDS: Pantoprazole 40 MG VIAL IVPB SCH (08:26)
[2016-10-22] MEDS: Aspirin 81 MG TAB.CHEW PO SCH (08:26)
[2016-10-22] MEDS: FLUoxetine 20 MG CAPSULE PO SCH (08:27)
[2016-10-22] MEDS ORDERED: *HR* LORazepam 2 MG/ML VIAL IVP PRN (09:28)
[2016-10-22] MEDS ORDERED: D5% in Water 1,000 ML IVC PRN (09:28)
[2016-10-22] MEDS ORDERED: Naloxone 0.4 MG/ML INJ IVP PRN (09:28)
[2016-10-22] MEDS ORDERED: *HR* Dextrose 50 % in Water (Syg) 50 ML SYRINGE IVP PRN (09:28)
[2016-10-22] MEDS ORDERED: Dextrose Gel 15 GM PO PRN ×2 (09:28)
--- NOTE | 2016-10-22 12:01 | Palliative Progress Note ---
Date of Encounter: 10/22/16 Time of Encounter: 10:30 - Assessment and plan (1) Goals of care, counseling/discussion Current Visit: Yes Status: Acute Assessment and plan: Patient to be transferred to palliative care bed for symptom management. Patient doesn't meet criteria for hospice at this time as labs for liver and renal are trending improvement. . Will continue to assess needs and collaborate with rocky Euceda for needs. Patient is DNRCC - A, DNI. (2) Shortness of breath Current Visit: No Status: Acute Assessment and plan: Patient tolerating NC at 4L. Denies SOB but reports increased with movement. Continue duonebs, O2 and position for comfort. Dilaudid PRN. No doses used in past 24 hrs. (3) Anxiety Current Visit: No Status: Acute Assessment and plan: Patient with PRN Ativan. Has required no doses in past 24 hrs. Resting calmly. Bipap is off. NC 2L NC. (4) Chronic liver disease and cirrhosis Current Visit: No Status: Chronic (5) Hepatic encephalopathy Current Visit: No Status: Acute - Time Spent With Patient Total time spent is greater than 50% in coordination of care (as documented) at patient's floor/unit and/or counseling patient: 25 - 35 minutes - Subjective Interval history: Patient in bed. Resting calmly on 4L NC. Sleepy but arousable. Denies complaints. - Constitutional Vitals: Abnormal lab results RBC 2.89 M/mcL (3.82-4.97) L 10/22/16 07:08 Hgb 8.5 g/dL (11.5-15.4) L 10/22/16 07:08 Hct 26.8 % (35.3-44.9) L 10/22/16 07:08 RDW 25.3 % (11.5-14.5) H 10/22/16 07:08 Plt Count 54 K/mcL (140-400) L 10/22/16 07:08 Monocytes # 1.5 K/mcL (0.0-1.3) H 10/22/16 07:08 Nucleated RBCs/100 WBC 0.5 /100 WBC (0) H 10/22/16 07:08 Platelet Estimate Decreased (Normal) L 10/22/16 07:08 Large Platelets Present (Not Present) A 10/22/16 07:08 Immature Plt Fraction 7.9 % (1.1-6.1) H 10/22/16 07:08 Polychromasia 1+ (Not Present) A 10/22/16 07:08 Hypochromasia Present (Not Present) A 10/20/16 22:55 Poikilocytosis 1+ (Not Present) A 10/22/16 07:08 Anisocytosis 1+ (Not Present) A 10/22/16 07:08 Macrocytosis Present (Not Present) A 10/20/16 10:00 Rouleaux Present (Not Present) A 10/20/16 22:55 PT 13.9 Seconds (9.4-12.1) H 10/16/16 15:57 ABG pCO2 33 mmHg (35-45) L 10/21/16 10:50 ABG pO2 36 mmHg (85-104) L* 10/21/16 10:50 ABG HCO3 19 mEq/L (21-27) L 10/21/16 10:50 ABG O2 Saturation 67 % (95-98) L 10/21/16 10:50 ABG Base Excess -5.6 mEq/L (-2.0 to 3.0) L 10/21/16 10:50 Chloride 114 mEq/L (98-109) H 10/22/16 06:20 Carbon Dioxide 15 mEq/L (19-29) L 10/22/16 06:20 BUN 79 mg/dL (7-20) H 10/22/16 06:20 Creatinine 2.87 mg/dL (0.57-1.11) H 10/22/16 06:20 Est GFR ( Amer) 19 (> 60) L 10/22/16 06:20 Est GFR (Non-Af Amer) 16 (> 60) L 10/22/16 06:20 BUN/Creatinine Ratio 28 (6-26) H 10/22/16 06:20 Glucose 125 mg/dL (70-99) H 10/22/16 06:20 POC Glucose 240 (58-89) H 10/21/16 23:50 Calculated Osmolality 323 (280-300) H 10/22/16 06:20 Lactic Acid 2.5 mmol/L (0.5-2.2) H 10/17/16 05:05 Total Bilirubin 2.7 mg/dL (0.2-1.2) H 10/21/16 05:40 Direct Bilirubin 0.8 mg/dL (0.0-0.5) H 10/16/16 15:57 Ur Specimen Adequacy See below A 10/19/16 09:59 Urine Clarity Cloudy (Clear) A 10/19/16 09:59 Ur Specific [place] 1.026 (1.010-1.025) H 10/19/16 09:59 Urine Protein 30 mg/dL (Neg-Trace) H 10/19/16 09:59 Urine Ketones Trace mg/dL (Negative) H 10/19/16 09:59 Urine Blood Trace (Negative) H 10/19/16 09:59 Ur Leukocyte Esterase Small (Negative) H 10/19/16 09:59 Urine Microscopic RBC 3-5 per hpf (0-3) H 10/19/16 09:59 Urine Microscopic WBC 5-15 per hpf (0-3) H 10/19/16 09:59 Ur Squamous Epith Cells Many per lpf (None-Few) H 10/19/16 09:59 Ur Culture Indicated? YES (NO) A 10/19/16 09:59 Urine Opiates Screen Positive ng/mL (Zjxrth=766) H 10/16/16 17:38 U Benzodiazepines Scrn Positive ng/mL (Gpfnco=682) H 10/16/16 17:38 - Head Head exam: Present: atraumatic - Eye Eye exam: Present: PERRL - Neck Neck exam: Present: full ROM - Respiratory Respiratory exam: Present: decreased breath sounds - Expanded Respiratory Exam Location: decreased breath sounds: Left, Right, Lower - Cardiovascular Cardiovascular exam: Present: RRR, +S1, +S2 - Expanded Cardiovascular Exam Peripheral pulses: 1+: Femoral (L) PM, Femoral (R) PM, Posterior Tibialis (L), Posterior Tibialis (R), 2+: Carotid (L) PM, Carotid (R) PM, Radial (L), Radial ( R), Dorsalis Pedis (L) PM, Dorsalis Pedis (R) PM - GI/Abdominal GI/Abdominal exam: Present: normal bowel sounds, soft - Rectal Rectal exam: Present: deferred - Extremities Exam Extremities exam: Present: normal inspection - Neurological Exam Neurological exam: Present: alert - Psychiatric Psychiatric exam: Present: normal affect Palliative Quality Palliative Quality: Screen for Code Status: Yes, Screen for Goals of Care: Yes, Screen for Pain: Yes, If Pain Regimen Started, Initiate Bowel Regimen: NA, Screen for Nausea/Vomitting: Yes Code Status: 10/16/16 18:30 Resuscitation Status: Active [RES] Routine Comment: Resuscitation Status: DNR-Comfort Care-Arrest 10/19/16 10:05 Resuscitation Status: Active [RES] Routine Comment: Resuscitation Status: [id number] - Labs CBC & Chem 7: 10/22/16 07:08 10/22/16 06:20 Labs: Laboratory Results - last 24 hr 10/21/16 10/21/16 10/21/16 05:35 11:19 23:50 WBC RBC Hgb Hct MCV MCH MCHC RDW Plt Count MPV Immature Gran % Seg Neutrophils % Lymphocytes % Monocytes % Eosinophils % Basophils % Neutrophils # Lymphocytes # Monocytes # Eosinophils # Basophils # Nucleated RBCs/100 WBC Platelet Estimate Large Platelets Immature Plt Fraction Polychromasia Poikilocytosis Anisocytosis Sodium Potassium Chloride Carbon Dioxide BUN Creatinine Est GFR ( Amer) Est GFR (Non-Af Amer) BUN/Creatinine Ratio Glucose POC Glucose 223 H 155 H 240 H Calculated Osmolality Calcium Specimen Rejected 10/22/16 10/22/16 10/22/16 06:20 06:20 07:08 WBC 7.8 RBC 2.89 L Hgb 8.5 L Hct 26.8 L MCV 92.7 MCH 29.4 MCHC 31.7 RDW 25.3 H Plt Count 54 L MPV 12.3 Immature Gran % 0.6 Seg Neutrophils % 69.2 Lymphocytes % 9.0 Monocytes % 19.6 Eosinophils % 1.2 Basophils % 0.4 Neutrophils # 5.4 Lymphocytes # 0.7 Monocytes # 1.5 H Eosinophils # 0.1 Basophils # 0.0 Nucleated RBCs/100 WBC 0.5 H Platelet Estimate Decreased L Large Platelets Present A Immature Plt Fraction 7.9 H Polychromasia 1+ A Poikilocytosis 1+ A Anisocytosis 1+ A Sodium 144 Potassium 4.5 Chloride 114 H Carbon Dioxide 15 L BUN 79 H Creatinine 2.87 H Est GFR ( Amer) 19 L Est GFR (Non-Af Amer) 16 L BUN/Creatinine Ratio 28 H Glucose 125 H POC Glucose Calculated Osmolality 323 H Calcium 9.1 Specimen Rejected Clotted - Impressions Impressions Chest X-Ray 10/22/16 04:00 IMPRESSION: 1. Persistent prominence of the pulmonary vasculature bilaterally. 2. Small bilateral pleural effusions. 3. Elevation of the right hemidiaphragm. D/ / Ronan Olsno MD / Ronan Olson MD Interpreting Provider: Ronan Olson MD - ABG Interpretation ABG results: ABG ABG pH 7.37 pH Units (7.32-7.45) 10/21/16 10:50 ABG pCO2 33 mmHg (35-45) L 10/21/16 10:50 ABG pO2 36 mmHg (85-104) L* 10/21/16 10:50 ABG O2 Saturation 67 % (95-98) L 10/21/16 10:50 PT/INR, D-dimer PT 13.9 Seconds (9.4-12.1) H 10/16/16 15:57 Consult Discharge Plan - Plan Referrals: NONE,PCP [Primary Care Provider] -
[2016-10-22] MEDS: *HR* HYDROmorphone 2 MG/ML SYRINGE IVP PRN (14:33)
[2016-10-22] MEDS: Ipratropium/Albuterol Neb 3 ML IH PRN (18:48)
[2016-10-23] MEDS: Insulin LISPRO 300 UNITS/3 ML VIAL SQ SCH ×5 (00:17→20:27)
[2016-10-23] MEDS: Lactulose Oral Soln 20 GM/30 ML UDC PO SCH ×5 (00:18→23:39)
--- NOTE | 2016-10-23 08:11 | Internal Med Progress Note ---
<Kaylynn Murdock - Last Filed: 10/23/16 16:54> Date of Encounter: 10/23/16 Time of Encounter: 08:11 - Assessment and plan (1) Altered mental status Current Visit: Yes Status: Resolved Assessment and plan: Lethargic at home, presented to the ER with a Deloris Coma Scale of 4 AMS likely 2/2 to hepatic encephalopathy Continue lactulose and rifaximin. Answers questions appropriately during exam Continue palliative care treatment plan Qualifiers: Altered mental status type: unspecified Qualified Code(s): R41.82 - Altered mental status, unspecified (2) Shortness of breath Current Visit: Yes Status: Acute Assessment and plan: Pt off BIPAP Now on 3 L Os, 02 Sat > 95% (3) Acute kidney injury superimposed on chronic kidney disease Current Visit: Yes Status: Acute Assessment and plan: SAUL superimposed on CKD 4. Creat slow improvement. Nephro following. Continue fluid restrictions and monitor I&Os. (4) CKD (chronic kidney disease) Current Visit: Yes Status: Chronic Assessment and plan: Acute kidney injury superimposed on stage IV chronic kidney disease. Monitoring timed BMPs: Sodium steadily improving from 147 (10/20) to 138 (10/23) Qualifiers: Chronic kidney disease stage: stage 4 (severe) Qualified Code(s): N18.4 - Chronic kidney disease, stage 4 (severe) (5) Cirrhosis Current Visit: Yes Status: Chronic Assessment and plan: Cirrhosis w/ Ascites IR evaluation inpatient ruled insufficient fluid at time of procedure for paracentesis Requiring weekly paracentesis, plan for follow-up paracentesis on Wednesday Qualifiers: Hepatic cirrhosis type: unspecified hepatic cirrhosis Ascites presence: with ascites Qualified Code(s): K74.60 - Unspecified cirrhosis of liver (6) Diabetes Current Visit: Yes Status: Acute Assessment and plan: Recent glucose 125-20 Will adjust insulin, as necessary Accuchecks q6 hours Qualifiers: Diabetes mellitus type: type 2 Diabetes mellitus complication status: with kidney complications Diabetes mellitus complication detail: with chronic kidney disease Diabetes mellitus rat exterminator insulin use: with penitentiary use Chronic kidney disease stage: stage 3 (moderate) Qualified Code(s): E11.22 - Type 2 diabetes mellitus with diabetic chronic kidney disease; N18.3 - Chronic kidney disease, stage 3 (moderate); Z79.4 - shelter (current) use of insulin (7) DVT prophylaxis Current Visit: Yes Status: Acute Assessment and plan: Active thrombocytopenia Management: Intermittent Compression Devices in place (8) Goals of care, counseling/discussion Current Visit: Yes Status: Acute Assessment and plan: Code Status : DNR- ComfortCare-ArrestDNI Palliative on consult, greatly appreciate rec - Subjective Interval history: AM: No acute events overnight. Per son, pt's condition has improved . Afternoon: Revisited pt. With son, [id number] and family friend by side. When asked if there is anything we can do to increase patient's comfort, patient said "no" . - Constitutional Vitals: Temp Pulse Resp BP Pulse Ox 98.6 F 57 20 117/72 100 10/23/16 06:48 10/23/16 06:48 10/23/16 06:48 10/23/16 06:48 10/23/16 06:48 General appearance: Present: cooperative, answers questions appropriately Exam: frail - Head Head exam: Present: atraumatic, normocephalic - Eye Eye exam: Present: EOMI. Absent: conjunctival injection, periorbital swelling - Respiratory Respiratory exam: Present: decreased breath sounds, CTAB. Absent: accessory muscle use (on nasal cannula), chest wall tenderness, rales, respiratory distress - Cardiovascular Cardiovascular exam: Present: RRR, +S1, +S2 - GI/Abdominal GI/Abdominal exam: Present: distended, mass, normal bowel sounds. Absent: tenderness Internal Medicine: Result - Labs CBC & Chem 7: 10/22/16 07:08 10/23/16 10:29 - ABG Interpretation ABG results: ABG ABG pH 7.37 pH Units (7.32-7.45) 10/21/16 10:50 ABG pCO2 33 mmHg (35-45) L 10/21/16 10:50 ABG pO2 36 mmHg (85-104) L* 10/21/16 10:50 ABG O2 Saturation 67 % (95-98) L 10/21/16 10:50 PT/INR, D-dimer PT 13.9 Seconds (9.4-12.1) H 10/16/16 15:57 - Impressions Impressions Chest X-Ray 10/20/16 14:25 IMPRESSION: Probable small right pleural effusion with adjacent atelectasis versus pneumonia. D/ / 10/20/2016 15:16:36 Linnette Pineda MD / lidia Interpreting Provider: Linnette Pineda MD Chest X-Ray 10/22/16 04:00 IMPRESSION: 1. Persistent prominence of the pulmonary vasculature bilaterally. 2. Small bilateral pleural effusions. 3. Elevation of the right hemidiaphragm. D/ / Ronan Olson MD / Ronan Olson MD Interpreting Provider: Ronan Olson MD - VTE Documentation of Mechanical Device: Intermittent pneumatic compression device Consult Discharge Plan - Plan Referrals: NONE,PCP [Primary Care Provider] - () <Ar Middleton - Last Filed: 10/23/16 18:09> Date of Encounter: 10/23/16 - Assessment and plan (1) Acute metabolic encephalopathy Current Visit: Yes Status: Acute (2) Anemia of chronic disease Current Visit: Yes Status: Acute (3) Cirrhosis Current Visit: No Status: Chronic Qualifiers: Hepatic cirrhosis type: other cirrhosis Qualified Code(s): K74.69 - Other cirrhosis of liver (4) Aspiration pneumonia Current Visit: Yes Status: Acute Qualifiers: Aspiration pneumonia type: due to gastric secretions Laterality: right Lung location: lower lobe of lung Qualified Code(s): J69.0 - Pneumonitis due to inhalation of food and vomit (5) Chronic kidney disease, stage IV (severe) Current Visit: Yes Status: Acute (6) Decubitus ulcer of buttock, stage 2 Current Visit: Yes Status: Acute Qualifiers: Laterality: left Qualified Code(s): L89.322 - Pressure ulcer of left buttock, stage 2 - Constitutional Vitals: Temp Pulse Resp BP Pulse Ox 98.6 F 63 18 106/61 97 10/23/16 16:33 10/23/16 16:33 10/23/16 16:33 10/23/16 16:33 10/23/16 16:33 Internal Medicine: Result - Labs CBC & Chem 7: 10/22/16 07:08 10/23/16 10:29 Labs: BMP 10/23/16 10:29 Sodium 138 Potassium 3.8 Chloride 109 Carbon Dioxide 19 BUN 83 H Creatinine 3.51 H Glucose 220 H Calcium 8.8 Liver Function 10/23/16 Range/Units 10:29 Total Bilirubin 2.3 H (0.2-1.2) mg/dL AST 27 (5-34) Units/L ALT 18 (0-55) Units/L Alkaline Phosphatase 69 (38-126) Units/L Albumin 3.5 (3.5-5.0) g/dL - ABG Interpretation ABG results: ABG ABG pH 7.37 pH Units (7.32-7.45) 10/21/16 10:50 ABG pCO2 33 mmHg (35-45) L 10/21/16 10:50 ABG pO2 36 mmHg (85-104) L* 10/21/16 10:50 ABG O2 Saturation 67 % (95-98) L 10/21/16 10:50 PT/INR, D-dimer PT 17.7 Seconds (9.4-12.1) H 10/23/16 10:29 - Impressions Impressions Chest X-Ray 10/20/16 14:25 IMPRESSION: Probable small right pleural effusion with adjacent atelectasis versus pneumonia. D/ / 10/20/2016 15:16:36 Linnette Pineda MD / lidia Interpreting Provider: Linnette Pineda MD - Attending Attestation I examined this patient and my medical decision-making was reviewed with the Resident Physician on 10/23/16. I agree with the documented findings, disposition and treatment plan as described except to the extent set forth below. Ms Flores is currently admitted for acute hepatic encephalopathy. She remains moderate to high risk due to potential for worsening clinical status. Ms. Flores is feeling better today. She is eating better. Son at bedside. No fever or chills. Working on d/c planning. Exam Alert. Comfortable Heart reg No wheeze Abd soft I/P 1. Hepatic enceph 2. Ascites Further diagnoses and plan as above.
[2016-10-23] MEDS: FLUoxetine 20 MG CAPSULE PO SCH (08:35)
[2016-10-23] MEDS: Aspirin 81 MG TAB.CHEW PO SCH (08:36)
[2016-10-23] MEDS ORDERED: Pantoprazole 40 MG VIAL IVPB SCH (09:00)
[2016-10-23] MEDS ORDERED: *HR* Promethazine 25 MG/ML VIAL IVP PRN (09:21)
--- NOTE | 2016-10-23 09:43 | Nephrology Progress Note ---
Date of Encounter: 10/23/16 Time of Encounter: 09:15 - Assessment and Plan (1) Acute kidney injury superimposed on chronic kidney disease Current Visit: No Status: Acute SAUL superimposed on CKD 4. Today labs pending. Urine output documented 125cc yesterday. !00cc in caceres bag this AM. O2 4L nc. Subjective Principal diagnosis: Hepatic Encephalopathy Interval history: Awake, HOB elevated. O2 NC. Son at bedside. States feeling better. No new complaints. Objective - Vital Signs Vital signs: Vital Signs Temp Pulse Resp BP Pulse Ox 10/23/16 06:48 98.6 F 57 20 117/72 100 10/23/16 03:21 97.7 F 52 16 106/66 100 10/23/16 00:07 97.9 F 53 16 135/68 100 10/22/16 23:05 14 96 10/22/16 19:24 18 94 10/22/16 18:50 97.7 F 63 18 110/64 99 10/22/16 16:00 99.4 F 65 17 112/48 97 10/22/16 14:39 64 10/22/16 14:00 64 16 89/21 95 10/22/16 12:00 62 16 111/56 95 10/22/16 10:00 60 20 121/68 95 Intake and Output 10/22/16 10/23/16 10/23/16 23:59 07:59 15:59 Intake Total 0 / 0 0 / 0 Output Total 25 / 25 50 / 50 Balance -25 / -25 -50 / -50 Intake: Oral 0 / 0 0 / 0 Output: Urine 0 / 0 Catheter 25 / 25 50 / 50 Other: Weight 75 kg 75.7 kg Blood Glucose* 287 189 172 Patient Weight 10/23/16 23:59 Weight 75.7 kg - General Appearance General appearance: Present: chronically ill, frail EENT: Present: mucous membranes moist Neck: Present: no JVD Respiratory: Present: clear Cardiology: Present: no edema, regular rate, regular rhythm Gastrointestinal: Present: hypoactive bowel sounds, distended Integumentary: Present: warm and dry Neurologic: Present: alert and oriented x3 Psychiatric: Present: mood/affect appropriate, cooperative - Lab 10/22/16 07:08 10/22/16 06:20 Most recent lab results ABG pH 7.37 pH Units (7.32-7.45) 10/21/16 10:50 ABG pCO2 33 mmHg (35-45) L 10/21/16 10:50 ABG pO2 36 mmHg (85-104) L* 10/21/16 10:50 ABG HCO3 19 mEq/L (21-27) L 10/21/16 10:50 ABG O2 Saturation 67 % (95-98) L 10/21/16 10:50 Calcium 9.1 mg/dL (8.6-10.8) 10/22/16 06:20 Phosphorus 3.0 mg/dL (2.3-4.7) 10/16/16 15:57 Magnesium 2.5 mg/dL (1.6-2.6) 10/16/16 15:57 Urine Creatinine 128 mg/dL 10/19/16 08:36 Urine Sodium 25.0 mEq/L 10/20/16 11:30 - VTE Documentation of Mechanical Device: Intermittent pneumatic compression device Consult Discharge Plan - Plan Referrals: NONE,PCP [Primary Care Provider] - (Posssibly going home with Hospice. Will wait to see the d/c plan)
[2016-10-23] MEDS ORDERED: *HR* Alteplase (Cathflo) 2 MG VIAL IVP ONE (09:54)
--- NOTE | 2016-10-23 10:10 | Palliative Progress Note ---
Date of Encounter: 10/23/16 Time of Encounter: 10:00 - Assessment and plan (1) Altered mental status Current Visit: No Status: Resolved Assessment and plan: Improved mentation today. Taking oral nutrition. MOnitor Qualifiers: Altered mental status type: unspecified Qualified Code(s): R41.82 - Altered mental status, unspecified (2) Shortness of breath Current Visit: No Status: Acute Assessment and plan: Utilizing bipap PRN. D/W dr. Middleton, she does not have this in place at home and may need qualifying study. She has low Dose Hydromorphone if needed, has only utilized x1 last 24 hours. (3) CKD (chronic kidney disease) stage 3, GFR 30-59 ml/min Current Visit: No Status: Chronic Assessment and plan: Nephrology following closely. (4) Counseling regarding advanced care planning and goals of care Current Visit: No Status: Acute Assessment and plan: D/W rocky Euceda at bedside. He desires to maintain current level of care. She is now alert and eating, so feeding not currently an issues. Ok is aware that not much can be done, however, desires to continue current meds, oxygen support, intermittent paracentesis. He wants to resume HH upon discharge and passport services 40 hours per week. He does desire air mattress for hospital bed, which I will D/W SW. Palliative will f/u on Wednesday on clinical status. - Time Spent With Patient Total time spent is greater than 50% in coordination of care (as documented) at patient's floor/unit and/or counseling patient: 25 - 35 minutes - Subjective Interval history: Patient awake and alert. Oriented to name and place. Was able to take in oral feeding this am, ate bowl of oatmeal and irby. Denies pain or discomfort, states breathing is "a little heavy". Son Ok at bedside. Ok expressed concerns for checking ascites, and states he thought ICU was going to do that yesterday. No BM documented yesterday. He is also inquiring why her "lungs have not been tapped to help her breathing". Notified him that yesterday's CXR only showed small bilateral effusions. - Constitutional Vitals: Abnormal lab results RBC 2.89 M/mcL (3.82-4.97) L 10/22/16 07:08 Hgb 8.5 g/dL (11.5-15.4) L 10/22/16 07:08 Hct 26.8 % (35.3-44.9) L 10/22/16 07:08 RDW 25.3 % (11.5-14.5) H 10/22/16 07:08 Plt Count 54 K/mcL (140-400) L 10/22/16 07:08 Monocytes # 1.5 K/mcL (0.0-1.3) H 10/22/16 07:08 Nucleated RBCs/100 WBC 0.5 /100 WBC (0) H 10/22/16 07:08 Platelet Estimate Decreased (Normal) L 10/22/16 07:08 Large Platelets Present (Not Present) A 10/22/16 07:08 Immature Plt Fraction 7.9 % (1.1-6.1) H 10/22/16 07:08 Polychromasia 1+ (Not Present) A 10/22/16 07:08 Hypochromasia Present (Not Present) A 10/20/16 22:55 Poikilocytosis 1+ (Not Present) A 10/22/16 07:08 Anisocytosis 1+ (Not Present) A 10/22/16 07:08 Macrocytosis Present (Not Present) A 10/20/16 10:00 Rouleaux Present (Not Present) A 10/20/16 22:55 PT 13.9 Seconds (9.4-12.1) H 10/16/16 15:57 ABG pCO2 33 mmHg (35-45) L 10/21/16 10:50 ABG pO2 36 mmHg (85-104) L* 10/21/16 10:50 ABG HCO3 19 mEq/L (21-27) L 10/21/16 10:50 ABG O2 Saturation 67 % (95-98) L 10/21/16 10:50 ABG Base Excess -5.6 mEq/L (-2.0 to 3.0) L 10/21/16 10:50 Chloride 114 mEq/L (98-109) H 10/22/16 06:20 Carbon Dioxide 15 mEq/L (19-29) L 10/22/16 06:20 BUN 79 mg/dL (7-20) H 10/22/16 06:20 Creatinine 2.87 mg/dL (0.57-1.11) H 10/22/16 06:20 Est GFR ( Amer) 19 (> 60) L 10/22/16 06:20 Est GFR (Non-Af Amer) 16 (> 60) L 10/22/16 06:20 BUN/Creatinine Ratio 28 (6-26) H 10/22/16 06:20 Glucose 125 mg/dL (70-99) H 10/22/16 06:20 POC Glucose 241 (58-89) H 10/23/16 00:05 Calculated Osmolality 323 (280-300) H 10/22/16 06:20 Lactic Acid 2.5 mmol/L (0.5-2.2) H 10/17/16 05:05 Total Bilirubin 2.7 mg/dL (0.2-1.2) H 10/21/16 05:40 Direct Bilirubin 0.8 mg/dL (0.0-0.5) H 10/16/16 15:57 Ur Specimen Adequacy See below A 10/19/16 09:59 Urine Clarity Cloudy (Clear) A 10/19/16 09:59 Ur Specific [place] 1.026 (1.010-1.025) H 10/19/16 09:59 Urine Protein 30 mg/dL (Neg-Trace) H 10/19/16 09:59 Urine Ketones Trace mg/dL (Negative) H 10/19/16 09:59 Urine Blood Trace (Negative) H 10/19/16 09:59 Ur Leukocyte Esterase Small (Negative) H 10/19/16 09:59 Urine Microscopic RBC 3-5 per hpf (0-3) H 10/19/16 09:59 Urine Microscopic WBC 5-15 per hpf (0-3) H 10/19/16 09:59 Ur Squamous Epith Cells Many per lpf (None-Few) H 10/19/16 09:59 Ur Culture Indicated? YES (NO) A 10/19/16 09:59 Urine Opiates Screen Positive ng/mL (Kpjhls=647) H 10/16/16 17:38 U Benzodiazepines Scrn Positive ng/mL (Fsfvkc=645) H 10/16/16 17:38 General appearance: Present: no acute distress - Respiratory Respiratory exam: Present: decreased breath sounds, CTAB - Cardiovascular Cardiovascular exam: Present: +S1, +S2 - GI/Abdominal GI/Abdominal exam: Present: distended, soft Additional comments: Large umbilical hernia - Extremities Exam Additional comments: Bruising over upper extremities. - Neurological Exam Neurological exam: Present: alert Additional comments: Oriented to name and place, follows simple commands - Skin Skin exam: Present: dry, pallor, warm Palliative Quality Palliative Quality: Screen for Code Status: Yes, Screen for Goals of Care: Yes, Screen for Pain: Yes, If Pain Regimen Started, Initiate Bowel Regimen: NA, Screen for Nausea/Vomitting: Yes Code Status: 10/16/16 18:30 Resuscitation Status: Active [RES] Routine Comment: Resuscitation Status: DNR-Comfort Care-Arrest 10/19/16 10:05 Resuscitation Status: Active [RES] Routine Comment: Resuscitation Status: [id number] - Labs CBC & Chem 7: 10/22/16 07:08 10/22/16 06:20 Labs: Laboratory Results - last 24 hr 10/22/16 10/22/16 10/23/16 05:12 11:35 00:05 POC Glucose 130 H 193 H 241 H - Impressions Impressions Chest X-Ray 10/20/16 14:25 IMPRESSION: Probable small right pleural effusion with adjacent atelectasis versus pneumonia. D/ / 10/20/2016 15:16:36 Linnette Pineda MD / lidia Interpreting Provider: Linnette Pineda MD Chest X-Ray 10/22/16 04:00 IMPRESSION: 1. Persistent prominence of the pulmonary vasculature bilaterally. 2. Small bilateral pleural effusions. 3. Elevation of the right hemidiaphragm. D/ / Ronan Olson MD / Ronan Olson MD Interpreting Provider: Ronan Olson MD - ABG Interpretation ABG results: ABG ABG pH 7.37 pH Units (7.32-7.45) 10/21/16 10:50 ABG pCO2 33 mmHg (35-45) L 10/21/16 10:50 ABG pO2 36 mmHg (85-104) L* 10/21/16 10:50 ABG O2 Saturation 67 % (95-98) L 10/21/16 10:50 PT/INR, D-dimer PT 13.9 Seconds (9.4-12.1) H 10/16/16 15:57 Consult Discharge Plan - Plan Referrals: NONE,PCP [Primary Care Provider] - (Posssibly going home with Hospice. Will wait to see the d/c plan)
[2016-10-23 10:55] LABS: Albumin 3.5 g/dL (3.5-5.0); Albumin/Globulin Ratio 1.3 (1.1-2.2); Bilirubin,Total 2.3 mg/dL (0.2-1.2); Calcium 8.8 mg/dL (8.6-10.8); Globulin 2.8 g/dL (2.4-3.5); Potassium 3.8 mEq/L (3.5-4.5); Total Protein 6.3 g/dL (6.0-8.3)
[2016-10-23 11:05] LABS: INR 1.6; Prothrombin Time 17.7 Seconds (9.4-12.1)
[2016-10-23] MEDS: Ipratropium/Albuterol Neb 3 ML IH PRN (15:13)
[2016-10-24 04:03] LABS: Basophils % 0.4 %; Eosinophils # 0.2 K/mcL (0.0-0.6); Eosinophils % 4.4 %; Hematocrit 26.1 % (35.3-44.9); Hemoglobin 8.2 g/dL (11.5-15.4); Immature Granulocytes % 1.3 % (0-4); Lymphocytes # 0.7 K/mcL (0.6-4.6); Lymphocytes % 12.1 %; Mean Corpuscular HGB Conc 31.4 g/dL (31.6-35.5); Mean Corpuscular Hemoglobin 29.9 pg (28.0-33.3); Mean Corpuscular Volume 95.3 fL (83.0-100.0); Mean Platelet Volume 11.5 fL (9.4-12.4); Monocytes # 0.8 K/mcL (0.0-1.3); Monocytes % 14.7 %; Nucleated Red Blood Cells 0.4 /100 WBC (0); Red Blood Count 2.74 M/mcL (3.82-4.97); Segmented Neutrophils % 67.1 %
[2016-10-24 04:04] LABS: Neutrophils # 3.6 K/mcL (1.6-8.9); Platelet Count 54 K/mcL (140-400)
[2016-10-24 04:14] LABS: Calcium 8.5 mg/dL (8.6-10.8); Potassium 3.6 mEq/L (3.5-4.5)
[2016-10-24 04:41] LABS: Anisocytosis 3+ (Not Present); Macrocytosis Present (Not Present); Microcytosis Present (Not Present); Platelet Estimate Decreased (Normal); Polychromasia 1+ (Not Present)
[2016-10-24] MEDS: Lactulose Oral Soln 20 GM/30 ML UDC PO SCH ×3 (05:42→16:23)
--- NOTE | 2016-10-24 07:55 | Nephrology Progress Note ---
Date of Encounter: 10/24/16 Time of Encounter: 07:40 - Assessment and Plan (1) Acute kidney injury superimposed on chronic kidney disease Current Visit: Yes Status: Acute SAUL superimposed on CKD 4. Renal fct worsening most likely in setting of poor oral intake. Will start 0.9 NS at 75 cc/hr. Urine output documented 175cc yesterday. O2 4L nc. Subjective Principal diagnosis: Hepatic Encephalopathy Interval history: Awake, HOB elevated. O2 NC. Son at bedside. States feeling better. No new complaints. Objective - Vital Signs Vital signs: Vital Signs Temp Pulse Resp BP Pulse Ox 10/24/16 06:55 97.9 F 53 14 107/71 100 10/24/16 05:28 52 105/45 10/24/16 03:00 97.7 F 62 18 157/83 98 10/23/16 23:31 98.2 F 55 17 127/63 97 10/23/16 20:23 97.6 F 56 18 103/50 97 10/23/16 16:33 98.6 F 63 18 106/61 97 10/23/16 15:12 10 95 10/23/16 10:00 98.7 F 57 20 103/49 97 Intake and Output 10/23/16 10/23/16 10/24/16 15:59 23:59 07:59 Intake Total 145 / 145 120 / 120 Output Total 75 / 75 50 / 50 Balance 70 / 70 70 / 70 Intake: Oral 145 / 145 120 / 120 Output: Urine 0 / 0 0 / 0 Catheter 75 / 75 50 / 50 Other: Meal Lunch Dinner Percent of Meal Consumed 95% 40% Stool Size Moderate Stool Consistency loose Stool Color Brown Yellow # Bowel Movements 2 Weight 78.9 kg 79.3 kg Blood Glucose* 237 243 Patient Weight 10/24/16 23:59 Weight 79.3 kg - General Appearance General appearance: Present: chronically ill, frail EENT: Present: mucous membranes moist Neck: Present: no JVD Respiratory: Present: clear Cardiology: Present: no edema, regular rate, regular rhythm Gastrointestinal: Present: normoactive bowel sounds, hypoactive bowel sounds, distended Neurologic: Present: alert and oriented x3 Psychiatric: Present: mood/affect appropriate, cooperative - Lab 10/24/16 03:59 10/24/16 03:59 Most recent lab results ABG pH 7.37 pH Units (7.32-7.45) 10/21/16 10:50 ABG pCO2 33 mmHg (35-45) L 10/21/16 10:50 ABG pO2 36 mmHg (85-104) L* 10/21/16 10:50 ABG HCO3 19 mEq/L (21-27) L 10/21/16 10:50 ABG O2 Saturation 67 % (95-98) L 10/21/16 10:50 Calcium 8.5 mg/dL (8.6-10.8) L 10/24/16 03:59 Phosphorus 3.0 mg/dL (2.3-4.7) 10/16/16 15:57 Magnesium 2.5 mg/dL (1.6-2.6) 10/16/16 15:57 Urine Creatinine 128 mg/dL 10/19/16 08:36 Urine Sodium 25.0 mEq/L 10/20/16 11:30 - VTE Documentation of Mechanical Device: Intermittent pneumatic compression device Consult Discharge Plan - Plan Referrals: NONE,PCP [Primary Care Provider] - ()
[2016-10-24] MEDS: FLUoxetine 20 MG CAPSULE PO SCH (08:33)
[2016-10-24] MEDS: Aspirin 81 MG TAB.CHEW PO SCH (08:33)
[2016-10-24] MEDS: Insulin LISPRO 300 UNITS/3 ML VIAL SQ SCH ×4 (08:35→21:40)
[2016-10-24] MEDS: 0.9 % Sodium Chloride 1,000 ML IVC SCH ×2 (08:46→21:40)
[2016-10-24] MEDS: Ipratropium/Albuterol Neb 3 ML IH PRN (16:05)
--- NOTE | 2016-10-24 17:55 | Internal Med Progress Note ---
Date of Encounter: 10/24/16 Time of Encounter: 10:20 - Assessment and plan (1) Acute metabolic encephalopathy Current Visit: Yes Status: Acute Assessment and plan: Improving with current management. Continue current medications for ammonia. (2) Anemia of chronic disease Current Visit: Yes Status: Acute Assessment and plan: Monitor. (3) Cirrhosis Current Visit: No Status: Chronic Assessment and plan: Supportive care. Return to usual calendar of treatment. Qualifiers: Hepatic cirrhosis type: other cirrhosis Qualified Code(s): K74.69 - Other cirrhosis of liver (4) Aspiration pneumonia Current Visit: Yes Status: Acute Assessment and plan: Currently completing course of abx. Qualifiers: Aspiration pneumonia type: due to gastric secretions Laterality: right Lung location: lower lobe of lung Qualified Code(s): J69.0 - Pneumonitis due to inhalation of food and vomit (5) Chronic kidney disease, stage IV (severe) Current Visit: Yes Status: Acute Assessment and plan: Creatinine worse today - IV fluids started per renal. (6) Decubitus ulcer of buttock, stage 2 Current Visit: Yes Status: Acute Assessment and plan: Monitoring. Qualifiers: Laterality: left Qualified Code(s): L89.322 - Pressure ulcer of left buttock, stage 2 - Subjective Interval history: Ms. Flores is currently admitted for acute encephalopathy related to cirrhosis. She remains moderate risk due to the potential for worsening clinical status. Ms Flores feels OK. No fever or chills. Creatinine somewhat more elevated today. Tolerating some diet. No abd pain. - Constitutional Vitals: Temp Pulse Resp BP Pulse Ox 98.0 F 55 16 101/55 100 10/24/16 15:47 10/24/16 15:47 10/24/16 16:05 10/24/16 15:47 10/24/16 16:05 General appearance: Present: cooperative, answers questions appropriately - Head Head exam: Present: normocephalic - Eye Eye exam: Present: EOMI, conjuntiva pink - ENT ENT exam: Present: mucous membranes dry - Respiratory Respiratory exam: Present: decreased breath sounds, CTAB. Absent: rhonchi, wheezes - Cardiovascular Cardiovascular exam: Present: RRR. Absent: tachycardia - GI/Abdominal GI/Abdominal exam: Present: distended, hypoactive bowel sounds, soft. Absent: tenderness - Extremities Exam Extremities exam: Present: warm. Absent: tenderness - Neurological Exam Neurological exam: Present: alert, oriented X3 - Skin Skin exam: Present: warm. Absent: rash Internal Medicine: Result - Labs CBC & Chem 7: 10/24/16 03:59 10/24/16 03:59 Labs: Short CBC 10/24/16 Range/Units 03:59 WBC 5.4 (4.3-11.1) K/mcL Hgb 8.2 L (11.5-15.4) g/dL Hct 26.1 L (35.3-44.9) % Plt Count 54 L (140-400) K/mcL Neutrophils # 3.6 (1.6-8.9) K/mcL BMP 10/24/16 03:59 Sodium 138 Potassium 3.6 Chloride 109 Carbon Dioxide 17 L BUN 79 H Creatinine 3.74 H Glucose 219 H Calcium 8.5 L - ABG Interpretation ABG results: ABG ABG pH 7.37 pH Units (7.32-7.45) 10/21/16 10:50 ABG pCO2 33 mmHg (35-45) L 10/21/16 10:50 ABG pO2 36 mmHg (85-104) L* 10/21/16 10:50 ABG O2 Saturation 67 % (95-98) L 10/21/16 10:50 PT/INR, D-dimer PT 17.7 Seconds (9.4-12.1) H 10/23/16 10:29 - VTE Documentation of Mechanical Device: Intermittent pneumatic compression device Consult Discharge Plan - Plan Referrals: Travis Deng Jr, MD [Non-Partnered Physician] -
[2016-10-25] MEDS: Lactulose Oral Soln 20 GM/30 ML UDC PO SCH ×5 (01:17→23:30)
[2016-10-25 05:15] LABS: Mean Corpuscular Volume 96.7 fL (83.0-100.0); Monocytes % 11.4 %; Nucleated Red Blood Cells 0.3 /100 WBC (0)
[2016-10-25 05:17] LABS: Basophils % 0.4 %; Eosinophils # 0.3 K/mcL (0.0-0.6); Eosinophils % 4.6 %; Hematocrit 29.2 % (35.3-44.9); Hemoglobin 8.8 g/dL (11.5-15.4); Immature Granulocytes % 1.5 % (0-4); Immature Platelets 7.1 % (1.1-6.1); Lymphocytes # 0.8 K/mcL (0.6-4.6); Lymphocytes % 10.5 %; Mean Corpuscular HGB Conc 30.1 g/dL (31.6-35.5); Mean Corpuscular Hemoglobin 29.1 pg (28.0-33.3); Monocytes # 0.8 K/mcL (0.0-1.3); Neutrophils # 5.3 K/mcL (1.6-8.9); Red Blood Count 3.02 M/mcL (3.82-4.97); Red Cell Distribution Width 26.7 % (11.5-14.5); Segmented Neutrophils % 71.6 %
[2016-10-25 05:23] LABS: Platelet Count 67 K/mcL (140-400)
[2016-10-25 05:30] LABS: Calcium 8.6 mg/dL (8.6-10.8); Magnesium 2.1 mg/dL (1.6-2.6); Potassium 3.9 mEq/L (3.5-4.5)
[2016-10-25 05:47] LABS: Anisocytosis 3+ (Not Present); Burr Cells 1+ (Not Present); Microcytosis Present (Not Present); Platelet Estimate Decreased (Normal); Polychromasia 1+ (Not Present)
[2016-10-25] MEDS: Aspirin 81 MG TAB.CHEW PO SCH (08:54)
[2016-10-25] MEDS: FLUoxetine 20 MG CAPSULE PO SCH (08:55)
[2016-10-25] MEDS: Insulin LISPRO 300 UNITS/3 ML VIAL SQ SCH ×4 (08:55→22:09)
--- NOTE | 2016-10-25 09:04 | Nephrology Progress Note ---
Date of Encounter: 10/25/16 Time of Encounter: 08:45 - Assessment and Plan (1) Acute kidney injury superimposed on chronic kidney disease Current Visit: Yes Status: Acute SAUL superimposed on CKD 4. Renal fct worsening most likely in setting of poor oral intake. Creat today 3.73, seems to have plateued with start of 0.9 NS at 75 cc/hr yesterday. Urine output documented 150cc yesterday. 100c in caceres bag this morning. O2 4L nc. Subjective Principal diagnosis: Hepatic Encephalopathy Interval history: Awake, laying on left side. O2 NC. Son at bedside. States feeling better. No new complaints. Objective - Vital Signs Vital signs: Vital Signs Temp Pulse Resp BP Pulse Ox 10/25/16 07:31 97.6 F 50 13 116/69 100 10/25/16 04:46 97.6 F 53 17 131/57 96 10/25/16 00:03 97.7 F 69 17 130/66 97 10/24/16 19:02 97.7 F 53 18 110/58 99 10/24/16 16:05 16 100 10/24/16 15:47 98.0 F 55 16 101/55 100 Intake and Output 10/24/16 10/25/16 10/25/16 23:59 07:59 15:59 Intake Total 1000 / 1000 Output Total 150 / 150 Balance 850 / 850 Intake: IV Fluids 1000 / 1000 0.9 % Sodium Chloride 1, 1000 / 1000 000 ML @ 75 mls/hr IVC . [id number] [facility] Rx#: [id number] Output: Catheter 150 / 150 Other: Stool Size Small Large Stool Consistency loose loose liquid Stool Color Brown Brown # Bowel Movement Diapers 1 1 Weight 80.1 kg Blood Glucose* 207 217 Patient Weight 10/25/16 23:59 Weight 80.1 kg - General Appearance General appearance: Present: chronically ill, frail EENT: Present: mucous membranes moist Neck: Present: no JVD Respiratory: Present: clear Cardiology: Present: no edema, regular rate, regular rhythm Gastrointestinal: Present: normoactive bowel sounds, distended Integumentary: Present: warm and dry Neurologic: Present: alert and oriented x3 Psychiatric: Present: mood/affect appropriate, cooperative - Lab 10/25/16 05:05 10/25/16 05:05 Most recent lab results ABG pH 7.37 pH Units (7.32-7.45) 10/21/16 10:50 ABG pCO2 33 mmHg (35-45) L 10/21/16 10:50 ABG pO2 36 mmHg (85-104) L* 10/21/16 10:50 ABG HCO3 19 mEq/L (21-27) L 10/21/16 10:50 ABG O2 Saturation 67 % (95-98) L 10/21/16 10:50 Calcium 8.6 mg/dL (8.6-10.8) 10/25/16 05:05 Phosphorus 3.0 mg/dL (2.3-4.7) 10/16/16 15:57 Magnesium 2.1 mg/dL (1.6-2.6) 10/25/16 05:05 Urine Creatinine 128 mg/dL 10/19/16 08:36 Urine Sodium 25.0 mEq/L 10/20/16 11:30 - VTE Documentation of Mechanical Device: Intermittent pneumatic compression device Consult Discharge Plan - Plan Referrals: Travis Deng Jr, MD [Non-Partnered Physician] -
[2016-10-25] MEDS: 0.9 % Sodium Chloride 1,000 ML IVC SCH (11:39)
--- NOTE | 2016-10-25 15:57 | Internal Med Progress Note ---
Date of Encounter: 10/25/16 Time of Encounter: 09:45 - Assessment and plan (1) Acute metabolic encephalopathy Current Visit: Yes Status: Acute Assessment and plan: Continues to improve. Continue current management plan. (2) Anemia of chronic disease Current Visit: Yes Status: Acute Assessment and plan: Monitor. Has been staying about the same. (3) Cirrhosis Current Visit: No Status: Chronic Assessment and plan: Supportive care. Due to IV fluids given over weekend may need to consider paracentesis on Wednesday if ascites an issue. Qualifiers: Hepatic cirrhosis type: other cirrhosis Qualified Code(s): K74.69 - Other cirrhosis of liver (4) Aspiration pneumonia Current Visit: Yes Status: Resolved Assessment and plan: Abx completed. Monitoring. Diet adjusted for dysphagia. Qualifiers: Aspiration pneumonia type: due to gastric secretions Laterality: right Lung location: lower lobe of lung Qualified Code(s): J69.0 - Pneumonitis due to inhalation of food and vomit (5) Chronic kidney disease, stage IV (severe) Current Visit: Yes Status: Acute Assessment and plan: Management per renal. (6) Decubitus ulcer of buttock, stage 2 Current Visit: Yes Status: Acute Assessment and plan: Monitoring. Qualifiers: Laterality: left Qualified Code(s): L89.322 - Pressure ulcer of left buttock, stage 2 - Subjective Interval history: Ms. Flores is currently admitted for acute encephalopathy related to cirrhosis. She remains moderate risk due to the potential for worsening clinical status. Ms Flores is resting comfortably. No fever or chills. Still receiving fluids per nephro. No CP or worsening dyspnea. Eating OK. - Constitutional Vitals: Temp Pulse Resp BP Pulse Ox 97.6 F 50 18 136/76 92 10/25/16 12:01 10/25/16 12:01 10/25/16 12:01 10/25/16 12:01 10/25/16 12:01 General appearance: Present: cooperative, answers questions appropriately - Head Head exam: Present: normocephalic - Eye Eye exam: Present: EOMI, conjuntiva pink - ENT ENT exam: Present: mucous membranes dry - Respiratory Respiratory exam: Present: decreased breath sounds, CTAB. Absent: rales, rhonchi, wheezes - Cardiovascular Cardiovascular exam: Present: RRR. Absent: tachycardia - GI/Abdominal GI/Abdominal exam: Present: distended, soft. Absent: tenderness - Extremities Exam Extremities exam: Present: warm. Absent: tenderness - Neurological Exam Neurological exam: Present: alert, oriented X3 - Skin Skin exam: Present: dry, warm. Absent: rash Internal Medicine: Result - Labs CBC & Chem 7: 10/25/16 05:05 10/25/16 05:05 Labs: Short CBC 10/25/16 Range/Units 05:05 WBC 7.4 (4.3-11.1) K/mcL Hgb 8.8 L (11.5-15.4) g/dL Hct 29.2 L (35.3-44.9) % Plt Count 67 L (140-400) K/mcL Neutrophils # 5.3 (1.6-8.9) K/mcL BMP 10/25/16 05:05 Sodium 139 Potassium 3.9 Chloride 111 H Carbon Dioxide 16 L BUN 81 H Creatinine 3.73 H Glucose 220 H Calcium 8.6 - ABG Interpretation ABG results: ABG ABG pH 7.37 pH Units (7.32-7.45) 10/21/16 10:50 ABG pCO2 33 mmHg (35-45) L 10/21/16 10:50 ABG pO2 36 mmHg (85-104) L* 10/21/16 10:50 ABG O2 Saturation 67 % (95-98) L 10/21/16 10:50 PT/INR, D-dimer PT 17.7 Seconds (9.4-12.1) H 10/23/16 10:29 - VTE Documentation of Mechanical Device: Intermittent pneumatic compression device Consult Discharge Plan - Plan Referrals: Travis Deng Jr, MD [Non-Partnered Physician] -
[2016-10-26] MEDS: 0.9 % Sodium Chloride 1,000 ML IVC SCH ×2 (01:09→13:59)
[2016-10-26 04:38] LABS: Hematocrit 28.8 % (35.3-44.9); Hemoglobin 8.7 g/dL (11.5-15.4); Immature Platelets 6.8 % (1.1-6.1); Mean Corpuscular HGB Conc 30.2 g/dL (31.6-35.5); Mean Corpuscular Hemoglobin 29.1 pg (28.0-33.3); Mean Corpuscular Volume 96.3 fL (83.0-100.0); Mean Platelet Volume 11.6 fL (9.4-12.4); Red Blood Count 2.99 M/mcL (3.82-4.97); Red Cell Distribution Width 26.8 % (11.5-14.5)
[2016-10-26 04:40] LABS: INR 1.6; Prothrombin Time 17.7 Seconds (9.4-12.1)
[2016-10-26 04:43] LABS: Activated Partial Thrombo Time 34.3 Seconds (26.0-36.0)
[2016-10-26 04:53] LABS: Calcium 8.4 mg/dL (8.6-10.8); Potassium 3.7 mEq/L (3.5-4.5)
[2016-10-26] MEDS: Lactulose Oral Soln 20 GM/30 ML UDC PO SCH ×3 (05:31→17:06)
--- NOTE | 2016-10-26 08:43 | Nephrology Progress Note ---
Date of Encounter: 10/26/16 Time of Encounter: 08:41 - Assessment and Plan (1) Acute kidney failure, unspecified Current Visit: Yes Status: Acute Patient has acute kidney injury superimposed on stage IV chronic kidney disease. Patient has been started on IV fluids over the past few days. Renal function seems a bit better today. Urine output is low but is unclear if this is an accurate measurement. I would recommend continuing IV fluids to ensure adequate hydration. We will continue to monitor the patient's renal function. Qualifiers: Acute renal failure type: unspecified Qualified Code(s): N17.9 - Acute kidney failure, unspecified (2) Chronic kidney disease, stage IV (severe) Current Visit: Yes Status: Acute (3) Hepatic encephalopathy Current Visit: Yes Status: Acute (4) Anemia of chronic disease Current Visit: Yes Status: Acute Subjective Principal diagnosis: Hepatic Encephalopathy Interval history: Patient is complaining of some head pain. She denies any shortness of breath or abdominal pain. Serum creatinine is slightly improved from 3.73 down to 3.49. However urine output is only recorded as 75 mL. Aviles catheter remains in place. Objective - Vital Signs Vital signs: Vital Signs Temp Pulse Resp BP Pulse Ox 10/26/16 06:46 97.7 F 51 16 137/77 100 10/26/16 04:10 97.6 F 52 20 115/69 98 10/26/16 00:31 98.3 F 53 19 112/69 94 10/25/16 22:01 98.5 F 52 17 122/63 99 10/25/16 16:45 97.8 F 51 16 112/59 100 10/25/16 12:01 97.6 F 50 18 136/76 92 Intake and Output 10/25/16 10/26/16 10/26/16 23:59 07:59 15:59 Intake Total 0 / 0 1000 / 1000 Output Total 75 / 75 25 / 25 Balance -75 / -75 975 / 975 Intake: IV Fluids 1000 / 1000 0.9 % Sodium Chloride 1, 1000 / 1000 000 ML @ 75 mls/hr IVC . [id number] [facility] Rx#: [id number] Oral 0 / 0 Output: Catheter 75 / 75 25 / 25 Other: Meal Dinner Percent of Meal Consumed 5% Stool Size Small Stool Consistency loose liquid Stool Color Brown Green # Bowel Movement Diapers 1 Weight 78.6 kg Blood Glucose* 128 212 Patient Weight 10/26/16 23:59 Weight 78.6 kg - General Appearance Exam: Patient is alert and oriented. She is in no acute distress. Vital signs are stable. Lungsbreath sounds otherwise clear. Heart regular rate and rhythm with a 2/6 ejection murmur. Abdomen is distended from ascites. A ventral hernia is present. There is no tenderness guarding or rigidity. There is no lower extremity swelling. - Lab 10/26/16 04:00 10/26/16 04:00 Most recent lab results ABG pH 7.37 pH Units (7.32-7.45) 10/21/16 10:50 ABG pCO2 33 mmHg (35-45) L 10/21/16 10:50 ABG pO2 36 mmHg (85-104) L* 10/21/16 10:50 ABG HCO3 19 mEq/L (21-27) L 10/21/16 10:50 ABG O2 Saturation 67 % (95-98) L 10/21/16 10:50 Calcium 8.4 mg/dL (8.6-10.8) L 10/26/16 04:00 Phosphorus 3.0 mg/dL (2.3-4.7) 10/16/16 15:57 Magnesium 2.1 mg/dL (1.6-2.6) 10/25/16 05:05 Urine Creatinine 128 mg/dL 10/19/16 08:36 Urine Sodium 25.0 mEq/L 10/20/16 11:30 - VTE Documentation of Mechanical Device: Intermittent pneumatic compression device Consult Discharge Plan - Plan Referrals: Travis Deng Jr, MD [Non-Partnered Physician] -
[2016-10-26] MEDS: FLUoxetine 20 MG CAPSULE PO SCH (09:05)
[2016-10-26] MEDS: Aspirin 81 MG TAB.CHEW PO SCH (09:05)
[2016-10-26] MEDS: Insulin LISPRO 300 UNITS/3 ML VIAL SQ SCH ×4 (09:19→21:57)
[2016-10-26] MEDS: Ipratropium/Albuterol Neb 3 ML IH PRN ×2 (09:36→15:47)
--- NOTE | 2016-10-26 09:55 | Internal Med Progress Note ---
<MathieuKaylynn - Last Filed: 10/26/16 16:31> Date of Encounter: 10/26/16 Time of Encounter: 09:55 - Assessment and plan (1) Acute metabolic encephalopathy Current Visit: Yes Status: Acute Assessment and plan: Continues to improve. Continue current management plan. (2) CKD (chronic kidney disease) Current Visit: Yes Status: Chronic Assessment and plan: Management per renal. Qualifiers: Chronic kidney disease stage: stage 4 (severe) Qualified Code(s): N18.4 - Chronic kidney disease, stage 4 (severe) (3) Cirrhosis Current Visit: Yes Status: Chronic Assessment and plan: Cirrhosis w/ Ascites IR evaluation inpatient ruled insufficient fluid at time of procedure for paracentesis Requiring weekly paracentesis, plan for follow-up paracentesis tomorrow Qualifiers: Hepatic cirrhosis type: unspecified hepatic cirrhosis Ascites presence: with ascites Qualified Code(s): K74.60 - Unspecified cirrhosis of liver (4) Diabetes Current Visit: Yes Status: Acute Assessment and plan: Monitoring glucose, continue management Qualifiers: Diabetes mellitus type: type 2 Diabetes mellitus complication status: with kidney complications Diabetes mellitus complication detail: with chronic kidney disease Diabetes mellitus carton wrapper insulin use: with carton wrapper use Chronic kidney disease stage: stage 3 (moderate) Qualified Code(s): E11.22 - Type 2 diabetes mellitus with diabetic chronic kidney disease; N18.3 - Chronic kidney disease, stage 3 (moderate); Z79.4 - correction (current) use of insulin (5) DVT prophylaxis Current Visit: Yes Status: Acute Assessment and plan: Active thrombocytopenia Management: Intermittent Compression Devices in place (6) Goals of care, counseling/discussion Current Visit: Yes Status: Acute Assessment and plan: Code Status : DNR- [facility] Palliative on consult, greatly appreciate rec (7) Anemia of chronic disease Current Visit: Yes Status: Acute Assessment and plan: Monitor. Hbl levels remains near ~8 (8) Aspiration pneumonia Current Visit: Yes Status: Resolved Assessment and plan: Abx completed. Monitoring. Diet adjusted for dysphagia. Qualifiers: Aspiration pneumonia type: due to gastric secretions Laterality: right Lung location: lower lobe of lung Qualified Code(s): J69.0 - Pneumonitis due to inhalation of food and vomit (9) Decubitus ulcer of buttock, stage 2 Current Visit: Yes Status: Acute Assessment and plan: Continuos bed position movement Qualifiers: Laterality: left Qualified Code(s): L89.322 - Pressure ulcer of left buttock, stage 2 - Subjective Interval history: AM: No acute events overnight. Pt AO X 3. Responsive in conversation and stated she felt "OK". - Constitutional Vitals: Temp Pulse Resp BP Pulse Ox 97.7 F 51 16 137/77 100 10/26/16 06:46 10/26/16 06:46 10/26/16 06:46 10/26/16 06:46 10/26/16 06:46 General appearance: Present: cooperative, A&O X 3, answers questions appropriately - Head Head exam: Present: atraumatic, normocephalic - Respiratory Respiratory exam: Present: decreased breath sounds, CTAB. Absent: accessory muscle use, chest wall tenderness, respiratory distress - Cardiovascular Cardiovascular exam: Present: distant heart sounds, +S1, +S2 - GI/Abdominal GI/Abdominal exam: Present: distended, soft. Absent: firm, tenderness, no peritoneal signs - Skin Skin exam: Present: dry, warm (senile purpura) Internal Medicine: Result - Labs CBC & Chem 7: 10/26/16 04:00 10/26/16 04:00 Labs: Short CBC 10/26/16 Range/Units 04:00 WBC 7.1 (4.3-11.1) K/mcL Hgb 8.7 L (11.5-15.4) g/dL Hct 28.8 L (35.3-44.9) % Plt Count 71 L (140-400) K/mcL BMP 10/26/16 04:00 Sodium 138 Potassium 3.7 Chloride 110 H Carbon Dioxide 16 L BUN 78 H Creatinine 3.49 H Glucose 209 H Calcium 8.4 L - ABG Interpretation ABG results: ABG ABG pH 7.37 pH Units (7.32-7.45) 10/21/16 10:50 ABG pCO2 33 mmHg (35-45) L 10/21/16 10:50 ABG pO2 36 mmHg (85-104) L* 10/21/16 10:50 ABG O2 Saturation 67 % (95-98) L 10/21/16 10:50 PT/INR, D-dimer PT 17.7 Seconds (9.4-12.1) H 10/26/16 04:00 - VTE Documentation of Mechanical Device: Intermittent pneumatic compression device Consult Discharge Plan - Plan Referrals: Travis Deng Jr, MD [Non-Partnered Physician] - <Ar Middleton - Last Filed: 10/26/16 17:54> Date of Encounter: 10/26/16 - Assessment and plan (1) Acute metabolic encephalopathy Current Visit: Yes Status: Acute (2) Anemia of chronic disease Current Visit: Yes Status: Acute (3) Cirrhosis Current Visit: No Status: Chronic Qualifiers: Hepatic cirrhosis type: other cirrhosis Qualified Code(s): K74.69 - Other cirrhosis of liver (4) Aspiration pneumonia Current Visit: Yes Status: Resolved Qualifiers: Aspiration pneumonia type: due to gastric secretions Laterality: right Lung location: lower lobe of lung Qualified Code(s): J69.0 - Pneumonitis due to inhalation of food and vomit (5) Chronic kidney disease, stage IV (severe) Current Visit: Yes Status: Acute (6) Decubitus ulcer of buttock, stage 2 Current Visit: Yes Status: Acute Qualifiers: Laterality: left Qualified Code(s): L89.322 - Pressure ulcer of left buttock, stage 2 - Constitutional Vitals: Temp Pulse Resp BP Pulse Ox 97.7 F 50 19 135/65 98 10/26/16 16:01 10/26/16 16:01 10/26/16 16:01 10/26/16 16:01 10/26/16 16:01 Internal Medicine: Result - Labs CBC & Chem 7: 10/26/16 04:00 10/26/16 04:00 Labs: Short CBC 10/26/16 Range/Units 04:00 WBC 7.1 (4.3-11.1) K/mcL Hgb 8.7 L (11.5-15.4) g/dL Hct 28.8 L (35.3-44.9) % Plt Count 71 L (140-400) K/mcL BMP 10/26/16 04:00 Sodium 138 Potassium 3.7 Chloride 110 H Carbon Dioxide 16 L BUN 78 H Creatinine 3.49 H Glucose 209 H Calcium 8.4 L - ABG Interpretation ABG results: ABG ABG pH 7.37 pH Units (7.32-7.45) 10/21/16 10:50 ABG pCO2 33 mmHg (35-45) L 10/21/16 10:50 ABG pO2 36 mmHg (85-104) L* 10/21/16 10:50 ABG O2 Saturation 67 % (95-98) L 10/21/16 10:50 PT/INR, D-dimer PT 17.7 Seconds (9.4-12.1) H 10/26/16 04:00 - Attending Attestation I examined this patient and my medical decision-making was reviewed with the Resident Physician on 10/26/16. I agree with the documented findings, disposition and treatment plan as described except to the extent set forth below. Ms. Flores is currently admitted for hepatic encephalopathy and renal disease. She remains moderate to high risk due to potential for worsening resp status. Ms Flores is resting comfortably. She has been receiving fluids from renal. No CP or SOB. No fever or chills. Exam Alert. Comfortable Mucus membranes dry Heart not tachy Lungs diminished Abd soft- fluid present I/P 1. Encephalopathy 2. Ascites Further diagnoses and plan as above. ? d/c home when OK with renal. Will need paracentesis before d/c.
--- NOTE | 2016-10-26 10:02 | Palliative Progress Note ---
<Timur Pettit - Last Filed: 10/26/16 09:58> Date of Encounter: 10/26/16 Time of Encounter: 09:59 - Assessment and plan (1) Counseling regarding advanced care planning and goals of care Current Visit: Yes Status: Acute Assessment and plan: Patient and son, PoA, main goal is for patient to return to home living with as much functionality as possible and comfort care. Son is PoA, and Code Status remain DNR CCA DNI. Patient lives at home with her son, who assists with ADL. Patient at baseline is able to prepare food and shower independently. Patient currently does not meet criteria for Cirrhosis w/ Ascites hospice, but will consider very soon. Palliative Care will continue to follow. Will receive symptomatic Paracentesis today. Most likely D/C tomorrow. (2) Hepatic encephalopathy Current Visit: No Status: Chronic Assessment and plan: Patient was able to communicate person and place today. Continues to progress back to [facility] (3) Diabetes Current Visit: No Status: Chronic Assessment and plan: continue medicine team's recommendations Qualifiers: Diabetes mellitus type: type 2 Diabetes mellitus complication status: with kidney complications Diabetes mellitus complication detail: with chronic kidney disease Diabetes mellitus halfway insulin use: with moth exterminator use Chronic kidney disease stage: stage 3 (moderate) Qualified Code(s): E11.22 - Type 2 diabetes mellitus with diabetic chronic kidney disease; N18.3 - Chronic kidney disease, stage 3 (moderate); Z79.4 - roasterman (current) use of insulin (4) CKD (chronic kidney disease) stage 4, GFR 15-29 ml/min Current Visit: No Status: Chronic Assessment and plan: Patient was given IVF over the weekend 2/2 SAUL on CKD4. continue medicine team 's recommendations - Time Spent With Patient Total time spent is greater than 50% in coordination of care (as documented) at patient's floor/unit and/or counseling patient: - Subjective Interval history: Ms. Flores is a 76 year old female who was admitted due to hepatic encephalopathy with a hx of diabetes, ckd, ELLIOTT cirrhosis of liver w/ ascites, and weekly paracentesis. Patient on average has 5-6 liters of fluid taken off during paracentesis, last week's paracentesis 3.5 liters were taken off. Over the weekend patient was started on IV fluids due to SAUL on CKD4. Patient reports a mild headache this morning. Patient scheduled for Paracentesis today. - Constitutional Vitals: Abnormal lab results RBC 2.99 M/mcL (3.82-4.97) L 10/26/16 04:00 Hgb 8.7 g/dL (11.5-15.4) L 10/26/16 04:00 Hct 28.8 % (35.3-44.9) L 10/26/16 04:00 MCHC 30.2 g/dL (31.6-35.5) L 10/26/16 04:00 RDW 26.8 % (11.5-14.5) H 10/26/16 04:00 Plt Count 71 K/mcL (140-400) L 10/26/16 04:00 Nucleated RBCs/100 WBC 0.3 /100 WBC (0) H 10/25/16 05:05 Platelet Estimate Decreased (Normal) L 10/25/16 05:05 Large Platelets Present (Not Present) A 10/22/16 07:08 Immature Plt Fraction 6.8 % (1.1-6.1) H 10/26/16 04:00 Polychromasia 1+ (Not Present) A 10/25/16 05:05 Hypochromasia Present (Not Present) A 10/20/16 22:55 Poikilocytosis 1+ (Not Present) A 10/22/16 07:08 Anisocytosis 3+ (Not Present) A 10/25/16 05:05 Microcytosis Present (Not Present) A 10/25/16 05:05 Macrocytosis Present (Not Present) A 10/24/16 03:59 [place]io Cells 1+ (Not Present) A 10/25/16 05:05 Rouleaux Present (Not Present) A 10/20/16 22:55 PT 17.7 Seconds (9.4-12.1) H 10/26/16 04:00 ABG pCO2 33 mmHg (35-45) L 10/21/16 10:50 ABG pO2 36 mmHg (85-104) L* 10/21/16 10:50 ABG HCO3 19 mEq/L (21-27) L 10/21/16 10:50 ABG O2 Saturation 67 % (95-98) L 10/21/16 10:50 ABG Base Excess -5.6 mEq/L (-2.0 to 3.0) L 10/21/16 10:50 Chloride 110 mEq/L (98-109) H 10/26/16 04:00 Carbon Dioxide 16 mEq/L (19-29) L 10/26/16 04:00 BUN 78 mg/dL (7-20) H 10/26/16 04:00 Creatinine 3.49 mg/dL (0.57-1.11) H 10/26/16 04:00 Est GFR ( Amer) 15 (> 60) L 10/26/16 04:00 Est GFR (Non-Af Amer) 13 (> 60) L 10/26/16 04:00 Glucose 209 mg/dL (70-99) H 10/26/16 04:00 POC Glucose 128 (58-89) H 10/25/16 21:49 Calculated Osmolality 315 (280-300) H 10/26/16 04:00 Lactic Acid 2.5 mmol/L (0.5-2.2) H 10/17/16 05:05 Calcium 8.4 mg/dL (8.6-10.8) L 10/26/16 04:00 Total Bilirubin 2.3 mg/dL (0.2-1.2) H 10/23/16 10:29 Direct Bilirubin 0.8 mg/dL (0.0-0.5) H 10/16/16 15:57 Ur Specimen Adequacy See below A 10/19/16 09:59 Urine Clarity Cloudy (Clear) A 10/19/16 09:59 Ur Specific [place] 1.026 (1.010-1.025) H 10/19/16 09:59 Urine Protein 30 mg/dL (Neg-Trace) H 10/19/16 09:59 Urine Ketones Trace mg/dL (Negative) H 10/19/16 09:59 Urine Blood Trace (Negative) H 10/19/16 09:59 Ur Leukocyte Esterase Small (Negative) H 10/19/16 09:59 Urine Microscopic RBC 3-5 per hpf (0-3) H 10/19/16 09:59 Urine Microscopic WBC 5-15 per hpf (0-3) H 10/19/16 09:59 Ur Squamous Epith Cells Many per lpf (None-Few) H 10/19/16 09:59 Ur Culture Indicated? YES (NO) A 10/19/16 09:59 Urine Opiates Screen Positive ng/mL (Rcvnmo=672) H 10/16/16 17:38 U Benzodiazepines Scrn Positive ng/mL (Ryzfom=625) H 10/16/16 17:38 General appearance: Present: mild distress, obese - Respiratory Respiratory exam: Present: accessory muscle use, decreased breath sounds - Cardiovascular Cardiovascular exam: Present: RRR - GI/Abdominal GI/Abdominal exam: Present: distended (subjectively more distended than Wednesday) Palliative Quality Palliative Quality: Screen for Code Status: Yes, Screen for Goals of Care: Yes, Screen for Pain: Yes, If Pain Regimen Started, Initiate Bowel Regimen: NA, Screen for Nausea/Vomitting: Yes Code Status: 10/16/16 18:30 Resuscitation Status: Active [RES] Routine Comment: Resuscitation Status: DNR-Comfort Care-Arrest 10/19/16 10:05 Resuscitation Status: Active [RES] Routine Comment: Resuscitation Status: [id number] - Labs CBC & Chem 7: 10/26/16 04:00 10/26/16 04:00 Labs: Laboratory Results - last 24 hr 10/25/16 10/25/16 10/25/16 11:56 16:29 21:49 WBC RBC Hgb Hct MCV MCH MCHC RDW Plt Count MPV Immature Plt Fraction PT INR APTT Sodium Potassium Chloride Carbon Dioxide BUN Creatinine Est GFR ( Amer) Est GFR (Non-Af Amer) BUN/Creatinine Ratio Glucose POC Glucose 291 H 227 H 128 H Calculated Osmolality Calcium 10/26/16 10/26/16 10/26/16 04:00 04:00 04:00 WBC 7.1 RBC 2.99 L Hgb 8.7 L Hct 28.8 L MCV 96.3 MCH 29.1 MCHC 30.2 L RDW 26.8 H Plt Count 71 L MPV 11.6 Immature Plt Fraction 6.8 H PT 17.7 H INR 1.6 APTT 34.3 Sodium 138 Potassium 3.7 Chloride 110 H Carbon Dioxide 16 L BUN 78 H Creatinine 3.49 H Est GFR ( Amer) 15 L Est GFR (Non-Af Amer) 13 L BUN/Creatinine Ratio 22 Glucose 209 H POC Glucose Calculated Osmolality 315 H Calcium 8.4 L - ABG Interpretation ABG results: ABG ABG pH 7.37 pH Units (7.32-7.45) 10/21/16 10:50 ABG pCO2 33 mmHg (35-45) L 10/21/16 10:50 ABG pO2 36 mmHg (85-104) L* 10/21/16 10:50 ABG O2 Saturation 67 % (95-98) L 10/21/16 10:50 PT/INR, D-dimer PT 17.7 Seconds (9.4-12.1) H 10/26/16 04:00 Consult Discharge Plan - Plan Referrals: Travis Deng Jr, MD [Non-Partnered Physician] - <Dave Cristobal L - Last Filed: 10/26/16 11:54> Date of Encounter: 10/26/16 - Time Spent With Patient Total time spent is greater than 50% in coordination of care (as documented) at patient's floor/unit and/or counseling patient: - Constitutional Vitals: Abnormal lab results RBC 2.99 M/mcL (3.82-4.97) L 10/26/16 04:00 Hgb 8.7 g/dL (11.5-15.4) L 10/26/16 04:00 Hct 28.8 % (35.3-44.9) L 10/26/16 04:00 MCHC 30.2 g/dL (31.6-35.5) L 10/26/16 04:00 RDW 26.8 % (11.5-14.5) H 10/26/16 04:00 Plt Count 71 K/mcL (140-400) L 10/26/16 04:00 Nucleated RBCs/100 WBC 0.3 /100 WBC (0) H 10/25/16 05:05 Platelet Estimate Decreased (Normal) L 10/25/16 05:05 Large Platelets Present (Not Present) A 10/22/16 07:08 Immature Plt Fraction 6.8 % (1.1-6.1) H 10/26/16 04:00 Polychromasia 1+ (Not Present) A 10/25/16 05:05 Hypochromasia Present (Not Present) A 10/20/16 22:55 Poikilocytosis 1+ (Not Present) A 10/22/16 07:08 Anisocytosis 3+ (Not Present) A 10/25/16 05:05 Microcytosis Present (Not Present) A 10/25/16 05:05 Macrocytosis Present (Not Present) A 10/24/16 03:59 [place] Cells 1+ (Not Present) A 10/25/16 05:05 Rouleaux Present (Not Present) A 10/20/16 22:55 PT 17.7 Seconds (9.4-12.1) H 10/26/16 04:00 ABG pCO2 33 mmHg (35-45) L 10/21/16 10:50 ABG pO2 36 mmHg (85-104) L* 10/21/16 10:50 ABG HCO3 19 mEq/L (21-27) L 10/21/16 10:50 ABG O2 Saturation 67 % (95-98) L 10/21/16 10:50 ABG Base Excess -5.6 mEq/L (-2.0 to 3.0) L 10/21/16 10:50 Chloride 110 mEq/L (98-109) H 10/26/16 04:00 Carbon Dioxide 16 mEq/L (19-29) L 10/26/16 04:00 BUN 78 mg/dL (7-20) H 10/26/16 04:00 Creatinine 3.49 mg/dL (0.57-1.11) H 10/26/16 04:00 Est GFR ( Amer) 15 (> 60) L 10/26/16 04:00 Est GFR (Non-Af Amer) 13 (> 60) L 10/26/16 04:00 Glucose 209 mg/dL (70-99) H 10/26/16 04:00 POC Glucose 128 (58-89) H 10/25/16 21:49 Calculated Osmolality 315 (280-300) H 10/26/16 04:00 Lactic Acid 2.5 mmol/L (0.5-2.2) H 10/17/16 05:05 Calcium 8.4 mg/dL (8.6-10.8) L 10/26/16 04:00 Total Bilirubin 2.3 mg/dL (0.2-1.2) H 10/23/16 10:29 Direct Bilirubin 0.8 mg/dL (0.0-0.5) H 10/16/16 15:57 Ur Specimen Adequacy See below A 10/19/16 09:59 Urine Clarity Cloudy (Clear) A 10/19/16 09:59 Ur Specific [place] 1.026 (1.010-1.025) H 10/19/16 09:59 Urine Protein 30 mg/dL (Neg-Trace) H 10/19/16 09:59 Urine Ketones Trace mg/dL (Negative) H 10/19/16 09:59 Urine Blood Trace (Negative) H 10/19/16 09:59 Ur Leukocyte Esterase Small (Negative) H 10/19/16 09:59 Urine Microscopic RBC 3-5 per hpf (0-3) H 10/19/16 09:59 Urine Microscopic WBC 5-15 per hpf (0-3) H 10/19/16 09:59 Ur Squamous Epith Cells Many per lpf (None-Few) H 10/19/16 09:59 Ur Culture Indicated? YES (NO) A 10/19/16 09:59 Urine Opiates Screen Positive ng/mL (Qgzoff=903) H 10/16/16 17:38 U Benzodiazepines Scrn Positive ng/mL (Qiycme=501) H 10/16/16 17:38 - Attending Attestation I examined this patient and my medical decision-making was reviewed with the Resident Physician. I agree with the documented findings, disposition and treatment plan as described except to the extent set forth below. Palliative Quality Code Status: 10/16/16 18:30 Resuscitation Status: Active [RES] Routine Comment: Resuscitation Status: DNR-Comfort Care-Arrest 10/19/16 10:05 Resuscitation Status: Active [RES] Routine Comment: Resuscitation Status: [id number] - Labs CBC & Chem 7: 10/26/16 04:00 10/26/16 04:00 Labs: Laboratory Results - last 24 hr 10/25/16 10/25/16 10/25/16 11:56 16:29 21:49 WBC RBC Hgb Hct MCV MCH MCHC RDW Plt Count MPV Immature Plt Fraction PT INR APTT Sodium Potassium Chloride Carbon Dioxide BUN Creatinine Est GFR ( Amer) Est GFR (Non-Af Amer) BUN/Creatinine Ratio Glucose POC Glucose 291 H 227 H 128 H Calculated Osmolality Calcium 10/26/16 10/26/16 10/26/16 04:00 04:00 04:00 WBC 7.1 RBC 2.99 L Hgb 8.7 L Hct 28.8 L MCV 96.3 MCH 29.1 MCHC 30.2 L RDW 26.8 H Plt Count 71 L MPV 11.6 Immature Plt Fraction 6.8 H PT 17.7 H INR 1.6 APTT 34.3 Sodium 138 Potassium 3.7 Chloride 110 H Carbon Dioxide 16 L BUN 78 H Creatinine 3.49 H Est GFR ( Amer) 15 L Est GFR (Non-Af Amer) 13 L BUN/Creatinine Ratio 22 Glucose 209 H POC Glucose Calculated Osmolality 315 H Calcium 8.4 L - ABG Interpretation ABG results: ABG ABG pH 7.37 pH Units (7.32-7.45) 10/21/16 10:50 ABG pCO2 33 mmHg (35-45) L 10/21/16 10:50 ABG pO2 36 mmHg (85-104) L* 10/21/16 10:50 ABG O2 Saturation 67 % (95-98) L 10/21/16 10:50 PT/INR, D-dimer PT 17.7 Seconds (9.4-12.1) H 10/26/16 04:00
[2016-10-26] MEDS ORDERED: Acetaminophen 325 MG TABLET PO ONE (13:07)
[2016-10-27] MEDS: Lactulose Oral Soln 20 GM/30 ML UDC PO SCH ×4 (01:11→16:36)
[2016-10-27] MEDS: 0.9 % Sodium Chloride 1,000 ML IVC SCH ×2 (04:05→18:19)
[2016-10-27 04:29] LABS: Mean Corpuscular Volume 97.7 fL (83.0-100.0)
[2016-10-27 04:31] LABS: Hematocrit 30.1 % (35.3-44.9); Hemoglobin 8.9 g/dL (11.5-15.4); Immature Platelets 6.1 % (1.1-6.1); Mean Corpuscular HGB Conc 29.6 g/dL (31.6-35.5); Mean Corpuscular Hemoglobin 28.9 pg (28.0-33.3); Mean Platelet Volume 11.3 fL (9.4-12.4); Red Blood Count 3.08 M/mcL (3.82-4.97); Red Cell Distribution Width 27.2 % (11.5-14.5)
[2016-10-27 04:48] LABS: Potassium 4.1 mEq/L (3.5-4.5)
[2016-10-27 04:49] LABS: Albumin 3.2 g/dL (3.5-5.0); Albumin/Globulin Ratio 1.1 (1.1-2.2); Bilirubin,Total 2.4 mg/dL (0.2-1.2); Calcium 8.7 mg/dL (8.6-10.8); Total Protein 6.2 g/dL (6.0-8.3)
--- NOTE | 2016-10-27 08:12 | Nephrology Progress Note ---
Date of Encounter: 10/27/16 Time of Encounter: 08:09 - Assessment and Plan (1) Acute kidney failure, unspecified Current Visit: Yes Status: Acute Patient has acute kidney injury superimposed on stage IV chronic kidney disease. Patient has been started on IV fluids over the past few days. Renal function appears to be at a plateau for the past 3 days. There is no acute indication for dialysis. The hope is that her renal function will start to improve in the near future. In the meantime since her oral intake seems low we will continue with the maintenance IV fluids. Qualifiers: Acute renal failure type: unspecified Qualified Code(s): N17.9 - Acute kidney failure, unspecified (2) Chronic kidney disease, stage IV (severe) Current Visit: Yes Status: Acute (3) Hepatic encephalopathy Current Visit: Yes Status: Acute (4) Anemia of chronic disease Current Visit: Yes Status: Acute Subjective Principal diagnosis: Hepatic Encephalopathy Interval history: Patient voices no new complaints. She currently is on BiPAP. She says her breathing is okay. From a renal perspective her creatinine has been about the same level for the past 3 days. Urine output remains low according to the eyes and nose. She continues on maintenance IV fluids. Her oral intake is only about 300 mL according to the I&O record. Objective - Vital Signs Vital signs: Vital Signs Temp Pulse Resp BP Pulse Ox 10/27/16 07:42 97.4 F L 52 18 113/53 100 10/27/16 04:51 97.6 F 50 16 105/53 100 10/27/16 03:46 16 100 10/27/16 01:48 97.2 F L 10/27/16 00:13 96.2 F L 50 16 117/49 100 10/27/16 00:02 17 100 10/26/16 20:26 97.6 F 48 16 105/52 10/26/16 16:01 97.7 F 50 19 135/65 98 10/26/16 15:48 18 98 10/26/16 14:08 117/75 10/26/16 12:02 97.5 F L 52 13 105/40 100 10/26/16 09:36 14 99 Intake and Output 10/26/16 10/27/16 10/27/16 23:59 07:59 15:59 Intake Total 0 / 0 1000 / 1000 Balance 0 / 0 1000 / 1000 Intake: IV Fluids 1000 / 1000 0.9 % Sodium Chloride 1, 1000 / 1000 000 ML @ 75 mls/hr IVC . [id number] Rx#: [id number] Oral 0 / 0 Other: Weight 82.9 kg Blood Glucose* 167 171 Patient Weight 10/27/16 23:59 Weight 82.9 kg - General Appearance Exam: She is currently on BiPAP. She is in no acute distress. Lungs breath sounds otherwise clear. Heart regular rate and rhythm. Abdomen is distended with ascites. Ventral hernia is present. There is no tenderness guarding or rigidity. There is no lower extremity swelling. - Lab 10/27/16 04:07 10/27/16 04:07 Most recent lab results ABG pH 7.37 pH Units (7.32-7.45) 10/21/16 10:50 ABG pCO2 33 mmHg (35-45) L 10/21/16 10:50 ABG pO2 36 mmHg (85-104) L* 10/21/16 10:50 ABG HCO3 19 mEq/L (21-27) L 10/21/16 10:50 ABG O2 Saturation 67 % (95-98) L 10/21/16 10:50 Calcium 8.7 mg/dL (8.6-10.8) 10/27/16 04:07 Phosphorus 3.0 mg/dL (2.3-4.7) 10/16/16 15:57 Magnesium 2.1 mg/dL (1.6-2.6) 10/25/16 05:05 Urine Creatinine 128 mg/dL 10/19/16 08:36 Urine Sodium 25.0 mEq/L 10/20/16 11:30 - VTE Documentation of Mechanical Device: Intermittent pneumatic compression device Consult Discharge Plan - Plan Referrals: Travis Deng Jr, MD [Non-Partnered Physician] -
[2016-10-27] MEDS: Aspirin 81 MG TAB.CHEW PO SCH (08:47)
[2016-10-27] MEDS: FLUoxetine 20 MG CAPSULE PO SCH (08:48)
[2016-10-27] MEDS: Insulin DETEMIR 100 UNIT/ML X5UNITS SQ SCH (08:49)
[2016-10-27] MEDS: Insulin LISPRO 300 UNITS/3 ML VIAL SQ SCH ×4 (08:49→21:22)
--- NOTE | 2016-10-27 10:17 | Palliative Progress Note ---
<HodanTimur - Last Filed: 10/27/16 10:14> Date of Encounter: 10/27/16 Time of Encounter: 10:14 - Assessment and plan (1) Counseling regarding advanced care planning and goals of care Current Visit: Yes Status: Acute Assessment and plan: Patient and son, PoA, main goal is for patient to return to home living with as much functionality as possible and comfort care. Son is PoA, and Code Status remain DNR CCA DNI. Patient lives at home with her son, who assists with ADL. Patient at baseline is able to prepare food and shower independently. Patient currently does not meet criteria for Cirrhosis w/ Ascites hospice, but will consider very soon. Palliative Care will continue to follow. Patient most likely to be discharged today and waiting on placement (2) Hepatic encephalopathy Current Visit: No Status: Chronic Assessment and plan: Patient was able to communicate person and place today. Continues to progress back to [facility] (3) Diabetes Current Visit: No Status: Chronic Assessment and plan: continue medicine team's recommendations Qualifiers: Diabetes mellitus type: type 2 Diabetes mellitus complication status: with kidney complications Diabetes mellitus complication detail: with chronic kidney disease Diabetes mellitus terminal system operator insulin use: with usp use Chronic kidney disease stage: stage 3 (moderate) Qualified Code(s): E11.22 - Type 2 diabetes mellitus with diabetic chronic kidney disease; N18.3 - Chronic kidney disease, stage 3 (moderate); Z79.4 - technician terminal and repeater (current) use of insulin (4) CKD (chronic kidney disease) stage 4, GFR 15-29 ml/min Current Visit: No Status: Chronic Assessment and plan: Patient was given IVF over the weekend 2/2 SAUL on CKD4. continue medicine team 's recommendations - Time Spent With Patient Total time spent is greater than 50% in coordination of care (as documented) at patient's floor/unit and/or counseling patient: - Subjective Interval history: Ms. Flores is a 76 year old female who was admitted due to hepatic encephalopathy with a hx of diabetes, ckd, ELLIOTT cirrhosis of liver w/ ascites, and weekly paracentesis. Patient continues to on fluids per neph. Patient was more somnolent and less responsive to questions today. Patient was seen with sons. - Constitutional Vitals: Abnormal lab results RBC 3.08 M/mcL (3.82-4.97) L 10/27/16 04:07 Hgb 8.9 g/dL (11.5-15.4) L 10/27/16 04:07 Hct 30.1 % (35.3-44.9) L 10/27/16 04:07 MCHC 29.6 g/dL (31.6-35.5) L 10/27/16 04:07 RDW 27.2 % (11.5-14.5) H 10/27/16 04:07 Plt Count 66 K/mcL (140-400) L 10/27/16 04:07 Nucleated RBCs/100 WBC 0.3 /100 WBC (0) H 10/25/16 05:05 Platelet Estimate Decreased (Normal) L 10/25/16 05:05 Large Platelets Present (Not Present) A 10/22/16 07:08 Polychromasia 1+ (Not Present) A 10/25/16 05:05 Hypochromasia Present (Not Present) A 10/20/16 22:55 Poikilocytosis 1+ (Not Present) A 10/22/16 07:08 Anisocytosis 3+ (Not Present) A 10/25/16 05:05 Microcytosis Present (Not Present) A 10/25/16 05:05 Macrocytosis Present (Not Present) A 10/24/16 03:59 Braulio Cells 1+ (Not Present) A 10/25/16 05:05 Rouleaux Present (Not Present) A 10/20/16 22:55 PT 17.7 Seconds (9.4-12.1) H 10/26/16 04:00 ABG pCO2 33 mmHg (35-45) L 10/21/16 10:50 ABG pO2 36 mmHg (85-104) L* 10/21/16 10:50 ABG HCO3 19 mEq/L (21-27) L 10/21/16 10:50 ABG O2 Saturation 67 % (95-98) L 10/21/16 10:50 ABG Base Excess -5.6 mEq/L (-2.0 to 3.0) L 10/21/16 10:50 Chloride 113 mEq/L (98-109) H 10/27/16 04:07 Carbon Dioxide 15 mEq/L (19-29) L 10/27/16 04:07 BUN 84 mg/dL (7-20) H 10/27/16 04:07 Creatinine 3.70 mg/dL (0.57-1.11) H 10/27/16 04:07 Est GFR ( Amer) 14 (> 60) L 10/27/16 04:07 Est GFR (Non-Af Amer) 12 (> 60) L 10/27/16 04:07 Glucose 166 mg/dL (70-99) H 10/27/16 04:07 POC Glucose 221 (58-89) H 10/26/16 16:01 Calculated Osmolality 319 (280-300) H 10/27/16 04:07 Lactic Acid 2.5 mmol/L (0.5-2.2) H 10/17/16 05:05 Total Bilirubin 2.4 mg/dL (0.2-1.2) H 10/27/16 04:07 Direct Bilirubin 0.8 mg/dL (0.0-0.5) H 10/16/16 15:57 Albumin 3.2 g/dL (3.5-5.0) L 10/27/16 04:07 Ur Specimen Adequacy See below A 10/19/16 09:59 Urine Clarity Cloudy (Clear) A 10/19/16 09:59 Ur Specific [place] 1.026 (1.010-1.025) H 10/19/16 09:59 Urine Protein 30 mg/dL (Neg-Trace) H 10/19/16 09:59 Urine Ketones Trace mg/dL (Negative) H 10/19/16 09:59 Urine Blood Trace (Negative) H 10/19/16 09:59 Ur Leukocyte Esterase Small (Negative) H 10/19/16 09:59 Urine Microscopic RBC 3-5 per hpf (0-3) H 10/19/16 09:59 Urine Microscopic WBC 5-15 per hpf (0-3) H 10/19/16 09:59 Ur Squamous Epith Cells Many per lpf (None-Few) H 10/19/16 09:59 Ur Culture Indicated? YES (NO) A 10/19/16 09:59 Urine Opiates Screen Positive ng/mL (Krdcuv=046) H 10/16/16 17:38 U Benzodiazepines Scrn Positive ng/mL (Hputzh=431) H 10/16/16 17:38 - Respiratory Respiratory exam: Present: decreased breath sounds Additional comments: patient was not able to cooperate with taking taking deep breaths. patient was breathing with respiratory muscles. - Cardiovascular Cardiovascular exam: Present: RRR (difficult to hear heart due to habitus) - Psychiatric Psychiatric exam: Present: flat affect Palliative Quality Palliative Quality: Screen for Code Status: Yes, Screen for Goals of Care: Yes, Screen for Pain: Yes, If Pain Regimen Started, Initiate Bowel Regimen: NA, Screen for Nausea/Vomitting: Yes Code Status: 10/16/16 18:30 Resuscitation Status: Active [RES] Routine Comment: Resuscitation Status: DNR-Comfort Care-Arrest 10/19/16 10:05 Resuscitation Status: Active [RES] Routine Comment: Resuscitation Status: [id number] - Labs CBC & Chem 7: 10/27/16 04:07 10/27/16 04:07 Labs: Laboratory Results - last 24 hr 10/26/16 10/26/16 10/26/16 06:49 11:49 16:01 WBC RBC Hgb Hct MCV MCH MCHC RDW Plt Count MPV Immature Plt Fraction Sodium Potassium Chloride Carbon Dioxide BUN Creatinine Est GFR ( Amer) Est GFR (Non-Af Amer) BUN/Creatinine Ratio Glucose POC Glucose 212 H 225 H 221 H Calculated Osmolality Calcium Total Bilirubin AST ALT Alkaline Phosphatase Serum Total Protein Albumin Globulin Albumin/Globulin Ratio 10/27/16 10/27/16 04:07 04:07 WBC 8.4 RBC 3.08 L Hgb 8.9 L Hct 30.1 L MCV 97.7 MCH 28.9 MCHC 29.6 L RDW 27.2 H Plt Count 66 L MPV 11.3 Immature Plt Fraction 6.1 Sodium 140 Potassium 4.1 Chloride 113 H Carbon Dioxide 15 L BUN 84 H Creatinine 3.70 H Est GFR ( Amer) 14 L Est GFR (Non-Af Amer) 12 L BUN/Creatinine Ratio 23 Glucose 166 H POC Glucose Calculated Osmolality 319 H Calcium 8.7 Total Bilirubin 2.4 H AST 21 ALT 17 Alkaline Phosphatase 84 Serum Total Protein 6.2 Albumin 3.2 L Globulin 3.0 Albumin/Globulin Ratio 1.1 - ABG Interpretation ABG results: ABG ABG pH 7.37 pH Units (7.32-7.45) 10/21/16 10:50 ABG pCO2 33 mmHg (35-45) L 10/21/16 10:50 ABG pO2 36 mmHg (85-104) L* 10/21/16 10:50 ABG O2 Saturation 67 % (95-98) L 10/21/16 10:50 PT/INR, D-dimer PT 17.7 Seconds (9.4-12.1) H 10/26/16 04:00 Consult Discharge Plan - Plan Referrals: Travis Deng Jr, MD [Non-Partnered Physician] - <Dave Cristobal - Last Filed: 10/27/16 10:45> Date of Encounter: 10/27/16 - Time Spent With Patient Total time spent is greater than 50% in coordination of care (as documented) at patient's floor/unit and/or counseling patient: - Constitutional Vitals: Abnormal lab results RBC 3.08 M/mcL (3.82-4.97) L 10/27/16 04:07 Hgb 8.9 g/dL (11.5-15.4) L 10/27/16 04:07 Hct 30.1 % (35.3-44.9) L 10/27/16 04:07 MCHC 29.6 g/dL (31.6-35.5) L 10/27/16 04:07 RDW 27.2 % (11.5-14.5) H 10/27/16 04:07 Plt Count 66 K/mcL (140-400) L 10/27/16 04:07 Nucleated RBCs/100 WBC 0.3 /100 WBC (0) H 10/25/16 05:05 Platelet Estimate Decreased (Normal) L 10/25/16 05:05 Large Platelets Present (Not Present) A 10/22/16 07:08 Polychromasia 1+ (Not Present) A 10/25/16 05:05 Hypochromasia Present (Not Present) A 10/20/16 22:55 Poikilocytosis 1+ (Not Present) A 10/22/16 07:08 Anisocytosis 3+ (Not Present) A 10/25/16 05:05 Microcytosis Present (Not Present) A 10/25/16 05:05 Macrocytosis Present (Not Present) A 10/24/16 03:59 Basehor Cells 1+ (Not Present) A 10/25/16 05:05 Rouleaux Present (Not Present) A 10/20/16 22:55 PT 17.7 Seconds (9.4-12.1) H 10/26/16 04:00 ABG pCO2 33 mmHg (35-45) L 10/21/16 10:50 ABG pO2 36 mmHg (85-104) L* 10/21/16 10:50 ABG HCO3 19 mEq/L (21-27) L 10/21/16 10:50 ABG O2 Saturation 67 % (95-98) L 10/21/16 10:50 ABG Base Excess -5.6 mEq/L (-2.0 to 3.0) L 10/21/16 10:50 Chloride 113 mEq/L (98-109) H 10/27/16 04:07 Carbon Dioxide 15 mEq/L (19-29) L 10/27/16 04:07 BUN 84 mg/dL (7-20) H 10/27/16 04:07 Creatinine 3.70 mg/dL (0.57-1.11) H 10/27/16 04:07 Est GFR ( Amer) 14 (> 60) L 10/27/16 04:07 Est GFR (Non-Af Amer) 12 (> 60) L 10/27/16 04:07 Glucose 166 mg/dL (70-99) H 10/27/16 04:07 POC Glucose 221 (58-89) H 10/26/16 16:01 Calculated Osmolality 319 (280-300) H 10/27/16 04:07 Lactic Acid 2.5 mmol/L (0.5-2.2) H 10/17/16 05:05 Total Bilirubin 2.4 mg/dL (0.2-1.2) H 10/27/16 04:07 Direct Bilirubin 0.8 mg/dL (0.0-0.5) H 10/16/16 15:57 Albumin 3.2 g/dL (3.5-5.0) L 10/27/16 04:07 Ur Specimen Adequacy See below A 10/19/16 09:59 Urine Clarity Cloudy (Clear) A 10/19/16 09:59 Ur Specific [place] 1.026 (1.010-1.025) H 10/19/16 09:59 Urine Protein 30 mg/dL (Neg-Trace) H 10/19/16 09:59 Urine Ketones Trace mg/dL (Negative) H 10/19/16 09:59 Urine Blood Trace (Negative) H 10/19/16 09:59 Ur Leukocyte Esterase Small (Negative) H 10/19/16 09:59 Urine Microscopic RBC 3-5 per hpf (0-3) H 10/19/16 09:59 Urine Microscopic WBC 5-15 per hpf (0-3) H 10/19/16 09:59 Ur Squamous Epith Cells Many per lpf (None-Few) H 10/19/16 09:59 Ur Culture Indicated? YES (NO) A 10/19/16 09:59 Urine Opiates Screen Positive ng/mL (Vtysca=053) H 10/16/16 17:38 U Benzodiazepines Scrn Positive ng/mL (Zetqps=895) H 10/16/16 17:38 - Attending Attestation I examined this patient and my medical decision-making was reviewed with the Resident Physician. I agree with the documented findings, disposition and treatment plan as described except to the extent set forth below. Palliative Quality Code Status: 10/16/16 18:30 Resuscitation Status: Active [RES] Routine Comment: Resuscitation Status: DNR-Comfort Care-Arrest 10/19/16 10:05 Resuscitation Status: Active [RES] Routine Comment: Resuscitation Status: [id number] - Labs CBC & Chem 7: 10/27/16 04:07 10/27/16 04:07 Labs: Laboratory Results - last 24 hr 10/26/16 10/26/16 10/26/16 06:49 11:49 16:01 WBC RBC Hgb Hct MCV MCH MCHC RDW Plt Count MPV Immature Plt Fraction Sodium Potassium Chloride Carbon Dioxide BUN Creatinine Est GFR ( Amer) Est GFR (Non-Af Amer) BUN/Creatinine Ratio Glucose POC Glucose 212 H 225 H 221 H Calculated Osmolality Calcium Total Bilirubin AST ALT Alkaline Phosphatase Serum Total Protein Albumin Globulin Albumin/Globulin Ratio 10/27/16 10/27/16 04:07 04:07 WBC 8.4 RBC 3.08 L Hgb 8.9 L Hct 30.1 L MCV 97.7 MCH 28.9 MCHC 29.6 L RDW 27.2 H Plt Count 66 L MPV 11.3 Immature Plt Fraction 6.1 Sodium 140 Potassium 4.1 Chloride 113 H Carbon Dioxide 15 L BUN 84 H Creatinine 3.70 H Est GFR ( Amer) 14 L Est GFR (Non-Af Amer) 12 L BUN/Creatinine Ratio 23 Glucose 166 H POC Glucose Calculated Osmolality 319 H Calcium 8.7 Total Bilirubin 2.4 H AST 21 ALT 17 Alkaline Phosphatase 84 Serum Total Protein 6.2 Albumin 3.2 L Globulin 3.0 Albumin/Globulin Ratio 1.1 - ABG Interpretation ABG results: ABG ABG pH 7.37 pH Units (7.32-7.45) 10/21/16 10:50 ABG pCO2 33 mmHg (35-45) L 10/21/16 10:50 ABG pO2 36 mmHg (85-104) L* 10/21/16 10:50 ABG O2 Saturation 67 % (95-98) L 10/21/16 10:50 PT/INR, D-dimer PT 17.7 Seconds (9.4-12.1) H 10/26/16 04:00
--- NOTE | 2016-10-27 13:16 | Internal Med Progress Note ---
<Kaylynn Murdock - Last Filed: 10/27/16 17:48> Date of Encounter: 10/27/16 Time of Encounter: 13:15 - Assessment and plan (1) Acute metabolic encephalopathy Current Visit: Yes Status: Acute Assessment and plan: Continue lactulose (2) CKD (chronic kidney disease) Current Visit: Yes Status: Chronic Assessment and plan: Management per renal. Qualifiers: Chronic kidney disease stage: stage 4 (severe) Qualified Code(s): N18.4 - Chronic kidney disease, stage 4 (severe) (3) Cirrhosis Current Visit: Yes Status: Chronic Assessment and plan: Cirrhosis w/ Ascites IR evaluation inpatient ruled insufficient fluid at time of procedure for paracentesis Requiring weekly paracentesis IR on consult, appreciate recs. Per IR Successful ultrasound guided paracentesis completed Qualifiers: Hepatic cirrhosis type: unspecified hepatic cirrhosis Ascites presence: with ascites Qualified Code(s): K74.60 - Unspecified cirrhosis of liver (4) Diabetes Current Visit: Yes Status: Acute Assessment and plan: Monitoring glucose, with permissive range for glucose levels Qualifiers: Diabetes mellitus type: type 2 Diabetes mellitus complication status: with kidney complications Diabetes mellitus complication detail: with chronic kidney disease Diabetes mellitus shelter insulin use: with buttermaker use Chronic kidney disease stage: stage 3 (moderate) Qualified Code(s): E11.22 - Type 2 diabetes mellitus with diabetic chronic kidney disease; N18.3 - Chronic kidney disease, stage 3 (moderate); 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 Monitoring. Diet adjusted for dysphagia. Qualifiers: Aspiration pneumonia type: due to gastric secretions Laterality: right Lung location: lower lobe of lung Qualified Code(s): J69.0 - Pneumonitis due to inhalation of food and vomit (9) Decubitus ulcer of buttock, stage 2 Current Visit: Yes Status: Acute Assessment and plan: Continuos bed position movement Qualifiers: Laterality: left Qualified Code(s): L89.322 - Pressure ulcer of left buttock, stage 2 - Subjective Interval history: AM: Son not comfortable with mother going home today. Pt sleeping when resident MD visited this morning while son was present. - Constitutional Vitals: Temp Pulse Resp BP Pulse Ox 98.0 F 51 14 110/50 98 10/27/16 11:41 10/27/16 11:41 10/27/16 11:41 10/27/16 11:41 10/27/16 11:41 General appearance: Present: cachectic. Absent: disheveled, no acute distress Exam: on nasal cannual, while asleep - Respiratory Respiratory exam: Present: decreased breath sounds, rales. Absent: chest wall tenderness, respiratory distress - Cardiovascular Cardiovascular exam: Present: distant heart sounds, +S1, +S2 - GI/Abdominal GI/Abdominal exam: Present: diminished bowel sounds, distended. Absent: bruit, rigid, tenderness - Extremities Exam Extremities exam: Absent: calf tenderness, cyanotic Internal Medicine: Result - Labs CBC & Chem 7: 10/27/16 04:07 10/27/16 04:07 Labs: Short CBC 10/27/16 Range/Units 04:07 WBC 8.4 (4.3-11.1) K/mcL Hgb 8.9 L (11.5-15.4) g/dL Hct 30.1 L (35.3-44.9) % Plt Count 66 L (140-400) K/mcL BMP 10/27/16 04:07 Sodium 140 Potassium 4.1 Chloride 113 H Carbon Dioxide 15 L BUN 84 H Creatinine 3.70 H Glucose 166 H Calcium 8.7 Liver Function 10/27/16 Range/Units 04:07 Total Bilirubin 2.4 H (0.2-1.2) mg/dL AST 21 (5-34) Units/L ALT 17 (0-55) Units/L Alkaline Phosphatase 84 (38-126) Units/L Albumin 3.2 L (3.5-5.0) g/dL - ABG Interpretation ABG results: ABG ABG pH 7.37 pH Units (7.32-7.45) 10/21/16 10:50 ABG pCO2 33 mmHg (35-45) L 10/21/16 10:50 ABG pO2 36 mmHg (85-104) L* 10/21/16 10:50 ABG O2 Saturation 67 % (95-98) L 10/21/16 10:50 PT/INR, D-dimer PT 17.7 Seconds (9.4-12.1) H 10/26/16 04:00 - Impressions Impressions Paracentesis Ultrasound 10/27/16 00:00 IMPRESSION: Successful ultrasound guided paracentesis. D/ / Kevin Aguilar MD / Kevin Aguilar MD Interpreting Provider: Kevin Aguilar MD - VTE Documentation of Mechanical Device: Intermittent pneumatic compression device Consult Discharge Plan - Plan Referrals: Travis Deng Jr, MD [Non-Partnered Physician] - (call and left a message...) <Rafael Jenkins P - Last Filed: 10/27/16 18:02> Date of Encounter: 10/27/16 - Constitutional Vitals: Temp Pulse Resp BP Pulse Ox 98.0 F 50 16 119/56 99 10/27/16 15:37 10/27/16 15:37 10/27/16 15:37 10/27/16 15:37 10/27/16 15:37 Internal Medicine: Result - Labs CBC & Chem 7: 10/27/16 04:07 10/27/16 04:07 Labs: Short CBC 10/27/16 Range/Units 04:07 WBC 8.4 (4.3-11.1) K/mcL Hgb 8.9 L (11.5-15.4) g/dL Hct 30.1 L (35.3-44.9) % Plt Count 66 L (140-400) K/mcL BMP 10/27/16 04:07 Sodium 140 Potassium 4.1 Chloride 113 H Carbon Dioxide 15 L BUN 84 H Creatinine 3.70 H Glucose 166 H Calcium 8.7 Liver Function 10/27/16 Range/Units 04:07 Total Bilirubin 2.4 H (0.2-1.2) mg/dL AST 21 (5-34) Units/L ALT 17 (0-55) Units/L Alkaline Phosphatase 84 (38-126) Units/L Albumin 3.2 L (3.5-5.0) g/dL - ABG Interpretation ABG results: ABG ABG pH 7.37 pH Units (7.32-7.45) 10/21/16 10:50 ABG pCO2 33 mmHg (35-45) L 10/21/16 10:50 ABG pO2 36 mmHg (85-104) L* 10/21/16 10:50 ABG O2 Saturation 67 % (95-98) L 10/21/16 10:50 PT/INR, D-dimer PT 17.7 Seconds (9.4-12.1) H 10/26/16 04:00 - Impressions Impressions Paracentesis Ultrasound 10/27/16 00:00 IMPRESSION: Successful ultrasound guided paracentesis. D/ / Kevin Aguilar MD / Kevin Aguilar MD Interpreting Provider: Kevin Aguilar MD - Attending Attestation I examined this patient and my medical decision-making was reviewed with the Resident Physician. I agree with the documented findings, disposition and treatment plan as described except to the extent set forth below. likely GIP/Hospice tomorrow
[2016-10-28] MEDS: Lactulose Oral Soln 20 GM/30 ML UDC PO SCH ×4 (01:55→16:25)
[2016-10-28 04:42] LABS: Albumin 3.1 g/dL (3.5-5.0); Albumin/Globulin Ratio 1.1 (1.1-2.2); Bilirubin,Total 1.8 mg/dL (0.2-1.2); Calcium 8.4 mg/dL (8.6-10.8); Globulin 2.9 g/dL (2.4-3.5); Potassium 3.9 mEq/L (3.5-4.5)
[2016-10-28] MEDS: 0.9 % Sodium Chloride 1,000 ML IVC SCH ×2 (07:00→17:13)
[2016-10-28 07:02] LABS: Basophils % 0.2 %; Eosinophils # 0.3 K/mcL (0.0-0.6); Eosinophils % 2.8 %; Hematocrit 28.6 % (35.3-44.9); Hemoglobin 8.9 g/dL (11.5-15.4); Immature Granulocytes % 0.6 % (0-4); Lymphocytes # 0.8 K/mcL (0.6-4.6); Lymphocytes % 8.4 %; Mean Corpuscular HGB Conc 31.1 g/dL (31.6-35.5); Mean Corpuscular Hemoglobin 30.5 pg (28.0-33.3); Mean Corpuscular Volume 97.9 fL (83.0-100.0); Monocytes # 0.9 K/mcL (0.0-1.3); Monocytes % 10.1 %; Neutrophils # 7.2 K/mcL (1.6-8.9); Nucleated Red Blood Cells 0.2 /100 WBC (0); Red Blood Count 2.92 M/mcL (3.82-4.97); Red Cell Distribution Width 28.1 % (11.5-14.5); Segmented Neutrophils % 77.9 %
[2016-10-28 07:03] LABS: Platelet Count 69 K/mcL (140-400)
[2016-10-28 07:49] LABS: Anisocytosis 3+ (Not Present); Burr Cells 1+ (Not Present)
[2016-10-28 07:50] LABS: Platelet Estimate Decreased (Normal); Polychromasia 1+ (Not Present)
--- NOTE | 2016-10-28 08:16 | Palliative Progress Note ---
<HodanTimur - Last Filed: 10/28/16 08:11> Date of Encounter: 10/28/16 Time of Encounter: 08:16 - Assessment and plan (1) Counseling regarding advanced care planning and goals of care Current Visit: Yes Status: Acute Assessment and plan: Patient and son, PoA, main goal is for patient to return to home living with as much functionality as possible and comfort care. Son is PoA, and Code Status remain DNR CCA DNI. Patient lives at home with her son, who assists with ADL. Patient at baseline is able to prepare food and shower independently. Patient currently does not meet criteria for Cirrhosis w/ Ascites hospice, but will consider very soon. Palliative Care will continue to follow. 4.7 L of fluid taken off during paracentesis yesterday. Patient waiting on placement. (2) Hepatic encephalopathy Current Visit: No Status: Chronic Assessment and plan: Patient was able to communicate person and place today. Continues back to [facility] and stable (3) Diabetes Current Visit: No Status: Chronic Assessment and plan: continue per medicine team Qualifiers: Diabetes mellitus type: type 2 Diabetes mellitus complication status: with kidney complications Diabetes mellitus complication detail: with chronic kidney disease Diabetes mellitus [facility] insulin use: with manager terminal use Chronic kidney disease stage: stage 3 (moderate) Qualified Code(s): E11.22 - Type 2 diabetes mellitus with diabetic chronic kidney disease; N18.3 - Chronic kidney disease, stage 3 (moderate); Z79.4 - terminal gauger supervisor (current) use of insulin (4) CKD (chronic kidney disease) stage 4, GFR 15-29 ml/min Current Visit: No Status: Chronic Assessment and plan: Patient was given IVF over the weekend 2/2 SAUL on CKD4. continue medicine team 's recommendations - Time Spent With Patient Total time spent is greater than 50% in coordination of care (as documented) at patient's floor/unit and/or counseling patient: - Subjective Interval history: Ms. Flores is a 76 year old female who was admitted due to hepatic encephalopathy with a hx of diabetes, ckd, ELLIOTT cirrhosis of liver w/ ascites, and weekly paracentesis. Patient was seen alone today. She had 4.7 L of fluid removed from paracentesis yesterday. Today she says she is feeling much better this morning, and she slept through the night. - Constitutional Vitals: Abnormal lab results RBC 2.92 M/mcL (3.82-4.97) L 10/28/16 06:39 Hgb 8.9 g/dL (11.5-15.4) L 10/28/16 06:39 Hct 28.6 % (35.3-44.9) L 10/28/16 06:39 MCHC 31.1 g/dL (31.6-35.5) L 10/28/16 06:39 RDW 28.1 % (11.5-14.5) H 10/28/16 06:39 Plt Count 69 K/mcL (140-400) L 10/28/16 06:39 Nucleated RBCs/100 WBC 0.2 /100 WBC (0) H 10/28/16 06:39 Platelet Estimate Decreased (Normal) L 10/28/16 06:39 Large Platelets Present (Not Present) A 10/22/16 07:08 Polychromasia 1+ (Not Present) A 10/28/16 06:39 Hypochromasia Present (Not Present) A 10/20/16 22:55 Poikilocytosis 1+ (Not Present) A 10/22/16 07:08 Anisocytosis 3+ (Not Present) A 10/28/16 06:39 Microcytosis Present (Not Present) A 10/25/16 05:05 Macrocytosis Present (Not Present) A 10/24/16 03:59 Braulio Cells 1+ (Not Present) A 10/28/16 06:39 Rouleaux Present (Not Present) A 10/20/16 22:55 PT 17.7 Seconds (9.4-12.1) H 10/26/16 04:00 ABG pCO2 33 mmHg (35-45) L 10/21/16 10:50 ABG pO2 36 mmHg (85-104) L* 10/21/16 10:50 ABG HCO3 19 mEq/L (21-27) L 10/21/16 10:50 ABG O2 Saturation 67 % (95-98) L 10/21/16 10:50 ABG Base Excess -5.6 mEq/L (-2.0 to 3.0) L 10/21/16 10:50 Chloride 114 mEq/L (98-109) H 10/28/16 04:10 Carbon Dioxide 17 mEq/L (19-29) L 10/28/16 04:10 BUN 85 mg/dL (7-20) H 10/28/16 04:10 Creatinine 3.87 mg/dL (0.57-1.11) H 10/28/16 04:10 Est GFR ( Amer) 14 (> 60) L 10/28/16 04:10 Est GFR (Non-Af Amer) 11 (> 60) L 10/28/16 04:10 Glucose 137 mg/dL (70-99) H 10/28/16 04:10 POC Glucose 159 (58-89) H 10/27/16 20:43 Calculated Osmolality 314 (280-300) H 10/28/16 04:10 Lactic Acid 2.5 mmol/L (0.5-2.2) H 10/17/16 05:05 Calcium 8.4 mg/dL (8.6-10.8) L 10/28/16 04:10 Total Bilirubin 1.8 mg/dL (0.2-1.2) H 10/28/16 04:10 Direct Bilirubin 0.8 mg/dL (0.0-0.5) H 10/16/16 15:57 Albumin 3.1 g/dL (3.5-5.0) L 10/28/16 04:10 Ur Specimen Adequacy See below A 10/19/16 09:59 Urine Clarity Cloudy (Clear) A 10/19/16 09:59 Ur Specific [place] 1.026 (1.010-1.025) H 10/19/16 09:59 Urine Protein 30 mg/dL (Neg-Trace) H 10/19/16 09:59 Urine Ketones Trace mg/dL (Negative) H 10/19/16 09:59 Urine Blood Trace (Negative) H 10/19/16 09:59 Ur Leukocyte Esterase Small (Negative) H 10/19/16 09:59 Urine Microscopic RBC 3-5 per hpf (0-3) H 10/19/16 09:59 Urine Microscopic WBC 5-15 per hpf (0-3) H 10/19/16 09:59 Ur Squamous Epith Cells Many per lpf (None-Few) H 10/19/16 09:59 Ur Culture Indicated? YES (NO) A 10/19/16 09:59 Urine Opiates Screen Positive ng/mL (Dyzzyd=295) H 10/16/16 17:38 U Benzodiazepines Scrn Positive ng/mL (Pmtprl=681) H 10/16/16 17:38 General appearance: Present: cooperative, no acute distress, obese - Respiratory Respiratory exam: Present: CTAB - Cardiovascular Cardiovascular exam: Present: RRR - GI/Abdominal GI/Abdominal exam: Present: hernia Additional comments: abdominal swelling slight decreased, 4.7 L of fluid removed yesterday. Palliative Quality Palliative Quality: Screen for Code Status: Yes, Screen for Goals of Care: Yes, Screen for Pain: Yes, If Pain Regimen Started, Initiate Bowel Regimen: NA, Screen for Nausea/Vomitting: Yes Code Status: 10/16/16 18:30 Resuscitation Status: Active [RES] Routine Comment: Resuscitation Status: DNR-Comfort Care-Arrest 10/19/16 10:05 Resuscitation Status: Active [RES] Routine Comment: Resuscitation Status: CDU-[id number]-[id number] - Labs CBC & Chem 7: 10/28/16 06:39 10/28/16 04:10 Labs: Laboratory Results - last 24 hr 10/27/16 10/27/16 10/27/16 11:40 15:36 20:43 WBC RBC Hgb Hct MCV MCH MCHC RDW Plt Count MPV Immature Gran % Seg Neutrophils % Lymphocytes % Monocytes % Eosinophils % Basophils % Neutrophils # Lymphocytes # Monocytes # Eosinophils # Basophils # Nucleated RBCs/100 WBC Platelet Estimate Polychromasia Anisocytosis [place] Cells Sodium Potassium Chloride Carbon Dioxide BUN Creatinine Est GFR ( Amer) Est GFR (Non-Af Amer) BUN/Creatinine Ratio Glucose POC Glucose 183 H 189 H 159 H Calculated Osmolality Calcium Total Bilirubin AST ALT Alkaline Phosphatase Serum Total Protein Albumin Globulin Albumin/Globulin Ratio 10/28/16 10/28/16 04:10 06:39 WBC 9.3 RBC 2.92 L Hgb 8.9 L Hct 28.6 L MCV 97.9 MCH 30.5 MCHC 31.1 L RDW 28.1 H Plt Count 69 L MPV 12.0 Immature Gran % 0.6 Seg Neutrophils % 77.9 Lymphocytes % 8.4 Monocytes % 10.1 Eosinophils % 2.8 Basophils % 0.2 Neutrophils # 7.2 Lymphocytes # 0.8 Monocytes # 0.9 Eosinophils # 0.3 Basophils # 0.0 Nucleated RBCs/100 WBC 0.2 H Platelet Estimate Decreased L Polychromasia 1+ A Anisocytosis 3+ A Braulio Cells 1+ A Sodium 138 Potassium 3.9 Chloride 114 H Carbon Dioxide 17 L BUN 85 H Creatinine 3.87 H Est GFR ( Amer) 14 L Est GFR (Non-Af Amer) 11 L BUN/Creatinine Ratio 22 Glucose 137 H POC Glucose Calculated Osmolality 314 H Calcium 8.4 L Total Bilirubin 1.8 H AST 20 ALT 14 Alkaline Phosphatase 84 Serum Total Protein 6.0 Albumin 3.1 L Globulin 2.9 Albumin/Globulin Ratio 1.1 - Impressions Impressions Paracentesis Ultrasound 10/27/16 00:00 IMPRESSION: Successful ultrasound guided paracentesis. D/ / Kevin Aguilar MD / Kevin Aguilar MD Interpreting Provider: Kevin Aguilar MD - ABG Interpretation ABG results: ABG ABG pH 7.37 pH Units (7.32-7.45) 10/21/16 10:50 ABG pCO2 33 mmHg (35-45) L 10/21/16 10:50 ABG pO2 36 mmHg (85-104) L* 10/21/16 10:50 ABG O2 Saturation 67 % (95-98) L 10/21/16 10:50 PT/INR, D-dimer PT 17.7 Seconds (9.4-12.1) H 10/26/16 04:00 Consult Discharge Plan - Plan Referrals: Travis Deng Jr, MD [Non-Partnered Physician] - (call and left a message...) <Dave Cristobal - Last Filed: 10/28/16 08:45> Date of Encounter: 10/28/16 - Time Spent With Patient Total time spent is greater than 50% in coordination of care (as documented) at patient's floor/unit and/or counseling patient: - Constitutional Vitals: Abnormal lab results RBC 2.92 M/mcL (3.82-4.97) L 10/28/16 06:39 Hgb 8.9 g/dL (11.5-15.4) L 10/28/16 06:39 Hct 28.6 % (35.3-44.9) L 10/28/16 06:39 MCHC 31.1 g/dL (31.6-35.5) L 10/28/16 06:39 RDW 28.1 % (11.5-14.5) H 10/28/16 06:39 Plt Count 69 K/mcL (140-400) L 10/28/16 06:39 Nucleated RBCs/100 WBC 0.2 /100 WBC (0) H 10/28/16 06:39 Platelet Estimate Decreased (Normal) L 10/28/16 06:39 Large Platelets Present (Not Present) A 10/22/16 07:08 Polychromasia 1+ (Not Present) A 10/28/16 06:39 Hypochromasia Present (Not Present) A 10/20/16 22:55 Poikilocytosis 1+ (Not Present) A 10/22/16 07:08 Anisocytosis 3+ (Not Present) A 10/28/16 06:39 Microcytosis Present (Not Present) A 10/25/16 05:05 Macrocytosis Present (Not Present) A 10/24/16 03:59 Braulio Cells 1+ (Not Present) A 10/28/16 06:39 Rouleaux Present (Not Present) A 10/20/16 22:55 PT 17.7 Seconds (9.4-12.1) H 10/26/16 04:00 ABG pCO2 33 mmHg (35-45) L 10/21/16 10:50 ABG pO2 36 mmHg (85-104) L* 10/21/16 10:50 ABG HCO3 19 mEq/L (21-27) L 10/21/16 10:50 ABG O2 Saturation 67 % (95-98) L 10/21/16 10:50 ABG Base Excess -5.6 mEq/L (-2.0 to 3.0) L 10/21/16 10:50 Chloride 114 mEq/L (98-109) H 10/28/16 04:10 Carbon Dioxide 17 mEq/L (19-29) L 10/28/16 04:10 BUN 85 mg/dL (7-20) H 10/28/16 04:10 Creatinine 3.87 mg/dL (0.57-1.11) H 10/28/16 04:10 Est GFR ( Amer) 14 (> 60) L 10/28/16 04:10 Est GFR (Non-Af Amer) 11 (> 60) L 10/28/16 04:10 Glucose 137 mg/dL (70-99) H 10/28/16 04:10 POC Glucose 159 (58-89) H 10/27/16 20:43 Calculated Osmolality 314 (280-300) H 10/28/16 04:10 Lactic Acid 2.5 mmol/L (0.5-2.2) H 10/17/16 05:05 Calcium 8.4 mg/dL (8.6-10.8) L 10/28/16 04:10 Total Bilirubin 1.8 mg/dL (0.2-1.2) H 10/28/16 04:10 Direct Bilirubin 0.8 mg/dL (0.0-0.5) H 10/16/16 15:57 Albumin 3.1 g/dL (3.5-5.0) L 10/28/16 04:10 Ur Specimen Adequacy See below A 10/19/16 09:59 Urine Clarity Cloudy (Clear) A 10/19/16 09:59 Ur Specific [place] 1.026 (1.010-1.025) H 10/19/16 09:59 Urine Protein 30 mg/dL (Neg-Trace) H 10/19/16 09:59 Urine Ketones Trace mg/dL (Negative) H 10/19/16 09:59 Urine Blood Trace (Negative) H 10/19/16 09:59 Ur Leukocyte Esterase Small (Negative) H 10/19/16 09:59 Urine Microscopic RBC 3-5 per hpf (0-3) H 10/19/16 09:59 Urine Microscopic WBC 5-15 per hpf (0-3) H 10/19/16 09:59 Ur Squamous Epith Cells Many per lpf (None-Few) H 10/19/16 09:59 Ur Culture Indicated? YES (NO) A 10/19/16 09:59 Urine Opiates Screen Positive ng/mL (Yccizh=245) H 10/16/16 17:38 U Benzodiazepines Scrn Positive ng/mL (Lmfusk=596) H 10/16/16 17:38 - Attending Attestation I examined this patient and my medical decision-making was reviewed with the Resident Physician. I agree with the documented findings, disposition and treatment plan as described except to the extent set forth below. Palliative Quality Code Status: 10/16/16 18:30 Resuscitation Status: Active [RES] Routine Comment: Resuscitation Status: DNR-Comfort Care-Arrest 10/19/16 10:05 Resuscitation Status: Active [RES] Routine Comment: Resuscitation Status: [id number]-[id number] - Labs CBC & Chem 7: 10/28/16 06:39 10/28/16 04:10 Labs: Laboratory Results - last 24 hr 10/27/16 10/27/16 10/27/16 11:40 15:36 20:43 WBC RBC Hgb Hct MCV MCH MCHC RDW Plt Count MPV Immature Gran % Seg Neutrophils % Lymphocytes % Monocytes % Eosinophils % Basophils % Neutrophils # Lymphocytes # Monocytes # Eosinophils # Basophils # Nucleated RBCs/100 WBC Platelet Estimate Polychromasia Anisocytosis Braulio Cells Sodium Potassium Chloride Carbon Dioxide BUN Creatinine Est GFR ( Amer) Est GFR (Non-Af Amer) BUN/Creatinine Ratio Glucose POC Glucose 183 H 189 H 159 H Calculated Osmolality Calcium Total Bilirubin AST ALT Alkaline Phosphatase Serum Total Protein Albumin Globulin Albumin/Globulin Ratio 10/28/16 10/28/16 04:10 06:39 WBC 9.3 RBC 2.92 L Hgb 8.9 L Hct 28.6 L MCV 97.9 MCH 30.5 MCHC 31.1 L RDW 28.1 H Plt Count 69 L MPV 12.0 Immature Gran % 0.6 Seg Neutrophils % 77.9 Lymphocytes % 8.4 Monocytes % 10.1 Eosinophils % 2.8 Basophils % 0.2 Neutrophils # 7.2 Lymphocytes # 0.8 Monocytes # 0.9 Eosinophils # 0.3 Basophils # 0.0 Nucleated RBCs/100 WBC 0.2 H Platelet Estimate Decreased L Polychromasia 1+ A Anisocytosis 3+ A Braulio Cells 1+ A Sodium 138 Potassium 3.9 Chloride 114 H Carbon Dioxide 17 L BUN 85 H Creatinine 3.87 H Est GFR ( Amer) 14 L Est GFR (Non-Af Amer) 11 L BUN/Creatinine Ratio 22 Glucose 137 H POC Glucose Calculated Osmolality 314 H Calcium 8.4 L Total Bilirubin 1.8 H AST 20 ALT 14 Alkaline Phosphatase 84 Serum Total Protein 6.0 Albumin 3.1 L Globulin 2.9 Albumin/Globulin Ratio 1.1 - Impressions Impressions Paracentesis Ultrasound 10/27/16 00:00
[2016-10-28] MEDS: Aspirin 81 MG TAB.CHEW PO SCH (08:30)
[2016-10-28] MEDS: FLUoxetine 20 MG CAPSULE PO SCH (08:31)
[2016-10-28] MEDS: Insulin DETEMIR 100 UNIT/ML X5UNITS SQ SCH (08:31)
[2016-10-28] MEDS: Insulin LISPRO 300 UNITS/3 ML VIAL SQ SCH ×3 (08:34→16:24)
--- NOTE | 2016-10-28 08:35 | Nephrology Progress Note ---
Date of Encounter: 10/28/16 Time of Encounter: 08:31 - Assessment and Plan (1) Acute kidney failure, unspecified Current Visit: Yes Status: Acute Patient has acute kidney injury superimposed on stage IV chronic kidney disease. Patient has been started on IV fluids over the past few days. Patient 's renal function shows no sign of improvement. She remains oliguric. I believe because of her current condition and overall comorbidities she is not a good dialysis candidate. I discussed this with the patient's son and he is in agreement. Overall prognosis is poor. Qualifiers: Acute renal failure type: unspecified Qualified Code(s): N17.9 - Acute kidney failure, unspecified (2) Chronic kidney disease, stage IV (severe) Current Visit: Yes Status: Acute (3) Hepatic encephalopathy Current Visit: Yes Status: Acute (4) Anemia of chronic disease Current Visit: Yes Status: Acute Subjective Principal diagnosis: Hepatic Encephalopathy Interval history: Patient appears more lethargic and weaker today. Renal function is about the same. Urine output remains low. The patient's son reports that she is not eating much. Objective - Vital Signs Vital signs: Vital Signs Temp Pulse Resp BP Pulse Ox 10/28/16 04:19 97.5 F L 61 17 126/61 93 10/27/16 23:29 97.6 F 50 16 99/62 91 10/27/16 19:08 97.7 F 50 17 118/68 96 10/27/16 15:37 98.0 F 50 16 119/56 99 10/27/16 11:41 98.0 F 51 14 110/50 98 Intake and Output 10/27/16 10/28/16 10/28/16 23:59 07:59 15:59 Intake Total 1270 / 1270 1015 / 1015 Output Total 0 / 0 Balance 1270 / 1270 1015 / 1015 Intake: IV Fluids 1000 / 1000 1000 / 1000 0.9 % Sodium Chloride 1, 1000 / 1000 1000 / 1000 000 ML @ 75 mls/hr IVC . [id number] JANKI Rx#: [id number] Oral 270 / 270 15 / 15 Output: Urine 0 / 0 Other: Meal Dinner Percent of Meal Consumed 45% Stool Size Copious Stool Consistency liquid Stool Color Brown # Urine Diapers 1 # Bowel Movements 1 Weight 81.6 kg Blood Glucose* 159 143 Patient Weight 10/28/16 23:59 Weight 81.6 kg - General Appearance Exam: Patient appears more lethargic today. Lungs benchpress sounds. Heart regular rate and rhythm. Abdomen is distended with ascites. Abdomen is soft. There is no tenderness guarding or rigidity. There is no lower extremity swelling. - Lab 10/28/16 06:39 10/28/16 04:10 Most recent lab results ABG pH 7.37 pH Units (7.32-7.45) 10/21/16 10:50 ABG pCO2 33 mmHg (35-45) L 10/21/16 10:50 ABG pO2 36 mmHg (85-104) L* 10/21/16 10:50 ABG HCO3 19 mEq/L (21-27) L 10/21/16 10:50 ABG O2 Saturation 67 % (95-98) L 10/21/16 10:50 Calcium 8.4 mg/dL (8.6-10.8) L 10/28/16 04:10 Phosphorus 3.0 mg/dL (2.3-4.7) 10/16/16 15:57 Magnesium 2.1 mg/dL (1.6-2.6) 10/25/16 05:05 Urine Creatinine 128 mg/dL 10/19/16 08:36 Urine Sodium 25.0 mEq/L 10/20/16 11:30 - VTE Documentation of Mechanical Device: Intermittent pneumatic compression device Consult Discharge Plan - Plan Referrals: Travis Deng Jr, MD [Non-Partnered Physician] - (call and left a message...)
[2016-10-28] MEDS: *HR* HYDROmorphone 2 MG/ML SYRINGE IVP PRN ×2 (11:42→17:12)
--- NOTE | 2016-10-28 17:17 | Internal Med Progress Note ---
<Kaylynn Murdock - Last Filed: 10/28/16 17:14> Date of Encounter: 10/28/16 Time of Encounter: 08:15 - Assessment and plan (1) Acute metabolic encephalopathy Current Visit: Yes Status: Acute Assessment and plan: Continue lactulose (2) CKD (chronic kidney disease) Current Visit: Yes Status: Chronic Assessment and plan: Management per renal, appreciate recs Acute kidney injury superimposed on stage IV chronic kidney disease. She remains oliguric Qualifiers: Chronic kidney disease stage: stage 4 (severe) Qualified Code(s): N18.4 - Chronic kidney disease, stage 4 (severe) (3) Cirrhosis Current Visit: Yes Status: Chronic Assessment and plan: Cirrhosis w/ Ascites Paracentesis completed during hospitalization Qualifiers: Hepatic cirrhosis type: unspecified hepatic cirrhosis Ascites presence: with ascites Qualified Code(s): K74.60 - Unspecified cirrhosis of liver (4) Diabetes Current Visit: Yes Status: Acute Assessment and plan: Monitoring glucose, with permissive range for glucose levels Qualifiers: Diabetes mellitus type: type 2 Diabetes mellitus complication status: with kidney complications Diabetes mellitus complication detail: with chronic kidney disease Diabetes mellitus terminal operations supervisor insulin use: with terminal operations supervisor use Chronic kidney disease stage: stage 3 (moderate) Qualified Code(s): E11.22 - Type 2 diabetes mellitus with diabetic chronic kidney disease; N18.3 - Chronic kidney disease, stage 3 (moderate); Z79.4 - terminal gauger (current) use of insulin (5) DVT prophylaxis Current Visit: Yes Status: Acute Assessment and plan: Active thrombocytopenia Management: Intermittent Compression Devices in place (6) Anemia of chronic disease Current Visit: Yes Status: Acute Assessment and plan: Monitor. Hbl levels remains near ~8 (7) Goals of care, counseling/discussion Current Visit: Yes Status: Acute Assessment and plan: Code Status : DNR- ComfortCare-ArrestDNI Palliative on consult, greatly appreciate rec (8) Aspiration pneumonia Current Visit: Yes Status: Resolved Assessment and plan: Abx completed. Monitoring. Diet adjusted for dysphagia. Qualifiers: Aspiration pneumonia type: due to gastric secretions Laterality: right Lung location: lower lobe of lung Qualified Code(s): J69.0 - Pneumonitis due to inhalation of food and vomit (9) Decubitus ulcer of buttock, stage 2 Current Visit: Yes Status: Acute Assessment and plan: Continuos bed position movement Qualifiers: Laterality: left Qualified Code(s): L89.322 - Pressure ulcer of left buttock, stage 2 - Subjective Interval history: AM: Pt sleeping comfortably when MD entered room in AM. Discussed with 2 sons of patient regarding home hospice. Family requests home hospice. PM: Per nurse communication, patient appeared to be short of breath, prn medication pulled and patient refused to have medication given.Family requested patients to be respected. - Constitutional Vitals: Temp Pulse Resp BP Pulse Ox 97.4 F L 57 15 132/53 80 10/28/16 16:27 10/28/16 16:27 10/28/16 16:27 10/28/16 16:27 10/28/16 16:27 General appearance: Present: cachectic. Absent: disheveled, no acute distress - Head Head exam: Present: atraumatic, normocephalic - Respiratory Respiratory exam: Present: decreased breath sounds, rales. Absent: chest wall tenderness Additional comments: nasal cannula appropriately placed - Cardiovascular Cardiovascular exam: Present: distant heart sounds, +S1, +S3. Absent: tachycardia - GI/Abdominal GI/Abdominal exam: Present: diminished bowel sounds, distended. Absent: firm, rigid - Expanded Lower Extremities Exam Lower Leg exam: Absent: erythema, tenderness - Skin Skin exam: Present: dry, warm Additional comments: senile purpura on bilateral forearms Internal Medicine: Result - Labs CBC & Chem 7: 10/28/16 06:39 10/28/16 04:10 Labs: Short CBC 10/28/16 Range/Units 06:39 WBC 9.3 (4.3-11.1) K/mcL Hgb 8.9 L (11.5-15.4) g/dL Hct 28.6 L (35.3-44.9) % Plt Count 69 L (140-400) K/mcL Neutrophils # 7.2 (1.6-8.9) K/mcL BMP 10/28/16 04:10 Sodium 138 Potassium 3.9 Chloride 114 H Carbon Dioxide 17 L BUN 85 H Creatinine 3.87 H Glucose 137 H Calcium 8.4 L Liver Function 10/28/16 Range/Units 04:10 Total Bilirubin 1.8 H (0.2-1.2) mg/dL AST 20 (5-34) Units/L ALT 14 (0-55) Units/L Alkaline Phosphatase 84 (38-126) Units/L Albumin 3.1 L (3.5-5.0) g/dL - ABG Interpretation ABG results: ABG ABG pH 7.37 pH Units (7.32-7.45) 10/21/16 10:50 ABG pCO2 33 mmHg (35-45) L 10/21/16 10:50 ABG pO2 36 mmHg (85-104) L* 10/21/16 10:50 ABG O2 Saturation 67 % (95-98) L 10/21/16 10:50 PT/INR, D-dimer PT 17.7 Seconds (9.4-12.1) H 10/26/16 04:00 - VTE Documentation of Mechanical Device: Intermittent pneumatic compression device Consult Discharge Plan - Plan Referrals: Travis Deng Jr, MD [Non-Partnered Physician] - (call and left a message...) Prescriptions: HYDROmorphone [Dilaudid] 1 mg PO Q4HR PRN #30 tablet PRN Reason: sob or pain LORazepam Oral Conc [Ativan Oral Conc] 1 mg PO Q3H PRN #30 mls PRN Reason: anxiety or sob Sennosides/Docusate Sodium [Senna Plus] 1 each PO DAILY #10 tablet <Rfaael Jenkins - Last Filed: 10/28/16 18:00> Date of Encounter: 10/28/16 - Constitutional Vitals: Temp Pulse Resp BP Pulse Ox 97.4 F L 57 15 132/53 80 10/28/16 16:27 10/28/16 16:27 10/28/16 16:27 10/28/16 16:27 10/28/16 16:27 Internal Medicine: Result - Labs CBC & Chem 7: 10/28/16 06:39 10/28/16 04:10 Labs: Short CBC 10/28/16 Range/Units 06:39 WBC 9.3 (4.3-11.1) K/mcL Hgb 8.9 L (11.5-15.4) g/dL Hct 28.6 L (35.3-44.9) % Plt Count 69 L (140-400) K/mcL Neutrophils # 7.2 (1.6-8.9) K/mcL BMP 10/28/16 04:10 Sodium 138 Potassium 3.9 Chloride 114 H Carbon Dioxide 17 L BUN 85 H Creatinine 3.87 H Glucose 137 H Calcium 8.4 L Liver Function 10/28/16 Range/Units 04:10 Total Bilirubin 1.8 H (0.2-1.2) mg/dL AST 20 (5-34) Units/L ALT 14 (0-55) Units/L Alkaline Phosphatase 84 (38-126) Units/L Albumin 3.1 L (3.5-5.0) g/dL - ABG Interpretation ABG results: ABG ABG pH 7.37 pH Units (7.32-7.45) 10/21/16 10:50 ABG pCO2 33 mmHg (35-45) L 10/21/16 10:50 ABG pO2 36 mmHg (85-104) L* 10/21/16 10:50 ABG O2 Saturation 67 % (95-98) L 10/21/16 10:50 PT/INR, D-dimer PT 17.7 Seconds (9.4-12.1) H 10/26/16 04:00 - Attending Attestation I examined this patient and my medical decision-making was reviewed with the Resident Physician. I agree with the documented findings, disposition and treatment plan as described except to the extent set forth below. Prolonged discussion with the patient's both sons. Discussed at length regarding recommendation from nephrology. Plan: Option discuss regarding hospice versus active treatment. Family agreed regarding hospice care.
[2016-10-29] MEDS: Lactulose Oral Soln 20 GM/30 ML UDC PO SCH ×3 (00:54→11:49)
[2016-10-29] MEDS: Insulin LISPRO 300 UNITS/3 ML VIAL SQ SCH ×3 (00:54→11:49)
[2016-10-29 04:09] LABS: Basophils % 0.4 %; Eosinophils # 0.3 K/mcL (0.0-0.6); Eosinophils % 3.1 %; Hematocrit 29.1 % (35.3-44.9); Hemoglobin 8.8 g/dL (11.5-15.4); Immature Granulocytes % 0.7 % (0-4); Immature Platelets 5.4 % (1.1-6.1); Lymphocytes # 0.9 K/mcL (0.6-4.6); Lymphocytes % 8.7 %; Mean Corpuscular HGB Conc 30.2 g/dL (31.6-35.5); Mean Corpuscular Hemoglobin 29.9 pg (28.0-33.3); Mean Platelet Volume 11.6 fL (9.4-12.4); Monocytes # 1.4 K/mcL (0.0-1.3); Monocytes % 12.6 %; Neutrophils # 8.1 K/mcL (1.6-8.9); Nucleated Red Blood Cells 0.4 /100 WBC (0); Red Blood Count 2.94 M/mcL (3.82-4.97); Red Cell Distribution Width 28.1 % (11.5-14.5); Segmented Neutrophils % 74.5 %
[2016-10-29 05:00] LABS: Platelet Count 76 K/mcL (140-400)
[2016-10-29 05:01] LABS: Anisocytosis 2+ (Not Present); Burr Cells 1+ (Not Present); Platelet Estimate Marked Decrease (Normal); Poikilocytosis 2+ (Not Present); Polychromasia 1+ (Not Present)
[2016-10-29] MEDS: 0.9 % Sodium Chloride 1,000 ML IVC SCH (05:38)
[2016-10-29 06:37] LABS: Calcium 8.5 mg/dL (8.6-10.8); Potassium 4.2 mEq/L (3.5-4.5)
--- NOTE | 2016-10-29 07:09 | Discharge Summary ---
<MathieuJanKaylynn - Last Filed: 10/29/16 15:04> Date of Encounter: 10/29/16 Time of Encounter: 08:08 - Discharge Diagnosis (1) Acute metabolic encephalopathy Priority: Primary Status: Acute (2) CKD (chronic kidney disease) Priority: Primary Status: Chronic Qualifiers: Chronic kidney disease stage: stage 4 (severe) Qualified Code(s): N18.4 - Chronic kidney disease, stage 4 (severe) (3) Aspiration pneumonia Priority: Primary Status: Resolved Qualifiers: Aspiration pneumonia type: due to gastric secretions Laterality: right Lung location: lower lobe of lung Qualified Code(s): J69.0 - Pneumonitis due to inhalation of food and vomit (4) Cirrhosis Priority: Primary Status: Chronic Qualifiers: Hepatic cirrhosis type: unspecified hepatic cirrhosis Ascites presence: with ascites Qualified Code(s): K74.60 - Unspecified cirrhosis of liver (5) Diabetes Priority: Secondary Status: Acute Qualifiers: Diabetes mellitus type: type 2 Diabetes mellitus complication status: with kidney complications Diabetes mellitus complication detail: with chronic kidney disease Diabetes mellitus retirement insulin use: with long term acute care registered nurse use Chronic kidney disease stage: stage 3 (moderate) Qualified Code(s): E11.22 - Type 2 diabetes mellitus with diabetic chronic kidney disease; N18.3 - Chronic kidney disease, stage 3 (moderate); Z79.4 - [facility]FP (current) use of insulin (6) DVT prophylaxis Priority: Secondary Status: Acute (7) Anemia of chronic disease Priority: Primary Status: Acute (8) Goals of care, counseling/discussion Priority: Primary Status: Acute (9) Decubitus ulcer of buttock, stage 2 Priority: Secondary Status: Acute Qualifiers: Laterality: left Qualified Code(s): L89.322 - Pressure ulcer of left buttock, stage 2 - Discharge Medications Prescriptions: HYDROmorphone [Dilaudid] 1 mg PO Q4HR PRN #30 tablet PRN Reason: sob or pain LORazepam Oral Conc [Ativan Oral Conc] 1 mg PO Q3H PRN #30 mls PRN Reason: anxiety or sob Sennosides/Docusate Sodium [Senna Plus] 1 each PO DAILY #10 tablet Home Medications: Cholecalciferol (Vitamin D3) [Vitamin D3] 50,000 unit PO WESA 11/02/14 [History] Magnesium Oxide [Magnesium] 400 mg PO BID 11/02/14 [History] Aspirin 81 mg PO DAILY 30 Days 11/08/14 [Rx] Ipratropium/Albuterol Neb [Duoneb] 3 ml IH Q4HR PRN 04/26/15 [History] Rifaximin [Xifaxan] 550 mg PO BID #60 tablet 05/01/15 [Rx] Cyanocobalamin (Vitamin B-12) [Vitamin B12] 1,000 mcg PO BID 09/03/15 [History] Zinc Sulfate 220 mg PO BID 09/03/15 [History] Insulin DETEMIR [Levemir Flextouch] 40 unit SQ BID 10/07/15 [History] Lactulose 15 ml PO TID MDD HEPATIC ENCEPALOPATHY 10/07/15 [History] Levothyroxine [Synthroid] 100 mcg PO QAM 10/07/15 [History] Oxygen 2 l NS AD 12/22/15 [History] Ondansetron ODT [Zofran ODT] 4 mg SL TID PRN 04/02/16 [History] raNITIdine HCl [Ranitidine HCl] 150 mg PO BID 04/02/16 [History] Diclofenac Sodium 1 appl TP QID PRN 04/09/16 [History] HYDROcodone/Acet 5/325 mg [[place] 5-325 mg] 1 tab PO Q8H PRN 07/14/16 [History] Pantoprazole Sodium [Protonix] 40 mg PO DAILY 07/14/16 [History] Folic Acid 1 mg PO DAILY #30 tablet 07/27/16 [Rx] FLUoxetine HCl [Prozac] 20 mg PO DAILY 09/09/16 [History] Sucralfate [Carafate] 1 gm PO BID 09/09/16 [History] Furosemide [Lasix] 20 mg PO DAILY #30 tablet 09/16/16 [Rx] Midodrine HCl 2.5 mg PO DAILY #0 09/16/16 [Rx] Propranolol LA (24 HR) [Inderal LA] 60 mg PO DAILY #30 cap.sa.24h 09/16/16 [Rx] HYDROmorphone [Dilaudid] 1 mg PO Q4HR PRN #30 tablet 10/28/16 [Rx] LORazepam Oral Conc [Ativan Oral Conc] 1 mg PO Q3H PRN #30 mls 10/28/16 [Rx] Sennosides/Docusate Sodium [Senna Plus] 1 each PO DAILY #10 tablet 10/28/16 [Rx] Allergies/Adverse Reactions: 3 Allergy/AdvReac Type Severity Reaction Status Date / Time No Known Allergies Allergy Verified 09/09/16 11:41 Procedures/tests Complete & Pending: Procedures Performed prior 72 hours Category Date Time Status IR paracentesis ultrasound [IR] Routine IR 10/27/16 Completed Date of admission: 10/16/16 17:34 Primary care physician: PCP NONE Consults: 10/16/16 19:46 Consult to Critical Care [CONS] Routine Consulting Provider: [facility] [place] Reason for Consult: Hepatic encephalopathy Time Notified: 16:30 Call Completed: Yes 10/16/16 19:48 Consult to Nurse (W&C) [CONS] Routine Reason For Exam: Reason for SW Consult: Discharge planning 10/19/16 12:50 Consult to Palliative Care [CONS] Routine Comment: Consulting Provider: [facility] Reason for Consult: End of stage planning Call Completed: No 10/20/16 11:05 Consult to Nephrology [CONS] Routine Consulting Provider: Stanley Calles Reason for Consult: 76yo F with history of SNOWDEN, cirrhosis, recurrent hepatic encephalopathy presented for hepatic encephalopathy. Patient has worsening kidney function. Please consult and recommend on possible Acute kidney injury ATN vs Hepatorenal Syndrome. Time Notified: 11:10 Call Completed: Yes Discharging clinician: Kaylynn Murdock Anticipated date of discharge: 10/29/16 - Patient Status Disposition: Hospice - Home Condition: Critical Overall status at discharge: other (chronic condition) - Discharge Instructions Follow Up With: Travis Deng Jr, MD [Non-Partnered Physician] - (call and left a message...) Additional Instructions: Please follow with home hospice At home, we recommend an attempt to provide support and orientation -Communicate clearly and concisely; give repeated verbal reminders of the day, time, location, and identity of mendez persons, such as members of the treatment team and relatives. -Provide clear signposts to patients location, including a clock, calendar, and chart with the days schedule. -Place familiar objects from patients home in the room. -Ensure consistency in staff (e.g., a mendez nurse). -Use television or radio for relaxation and to help the patient maintain contact with the outside world. -Involve family members and caregivers to encourage feelings of security and orientation. Please follow up with your primary care provider In case of any acute changes, confusion or fever, shortness of breath or onset of new symptoms please proceed to the emergency room - Diet and Activity Activity: wear oxygen at all times Diet: diabetic diet, low salt diet Interval History: No acute events overnight. Family visiting. 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 The family is on board for home hospice. Hospital course: Ms. Flores is a 76 year old female with a medical history of SNOWDEN cirrhosis of liver w/ ascites status post weekly paracentesis, Diabetes, chronic kidney disease who was admitted due to hepatic encephalopathy. The patient had an average of 5-6 liters of fluid removed via weekly therapeutic paracentesis. She presented with multiple arthritis, COPD, dementia, GERD, glaucoma, hepatitis, hyperlipidemia, hypertension, osteoporosis and thyroid disease. When the patient presented to the emergency department her GCS was 4 and was intubated to protect her airway. CT head demonstrated no acute abnormalities. Ammonia level was 183. She was admitted to the ICU for further treatment and evaluation and required intubation. She was weaned transferred to hospital floors after successful weaning off of sedation and intubation and placed on BiPAP. Lactulose and rifaximin were utilize to address patient's presenting encephalopathy. Patient clinical condition demonstrated a worsening renal failure superimposed on chronic kidney disease in the setting of Snowden cirrhosis and hepatic encephalopathy. Patient's renal function showed no sign of improvement and she remained oliguric. Due to her current condition and overall comorbidities she was deemed not an appropriate dialysis candidate. Family was involved in care and decision making. Due to the combination of worsening renal failure and liver failure, palliative was consulted and coordinated care for transfer to home hospice. - Time Spent with Patient Total time spent providing and/or coordinating discharge services: - Constitutional Vitals: Temp Pulse Resp BP Pulse Ox 97.5 F L 45 19 125/72 93 10/28/16 19:02 10/28/16 19:02 10/28/16 19:02 10/28/16 19:02 10/28/16 19:02 General appearance: Present: cachectic. Absent: disheveled, no acute distress Exam: sleeping - Head Head exam: Present: atraumatic, normocephalic - Respiratory Respiratory exam: Present: decreased breath sounds. Absent: accessory muscle use, respiratory distress, wheezes - Cardiovascular Cardiovascular exam: Present: distant heart sounds, +S1, +S2. Absent: tachycardia - GI/Abdominal GI/Abdominal exam: Present: diminished bowel sounds, distended, soft. Absent: tenderness Additional comments: diffuse stretch beard - Extremities Exam Extremities exam: Absent: cyanotic, pedal edema Additional comments: +1 radial pulses b/l - VTE Documentation of Mechanical Device: Intermittent pneumatic compression device <Rafael Jenkins P - Last Filed: 10/29/16 17:43> Date of Encounter: 10/29/16 Procedures/tests Complete & Pending: Procedures Performed prior 72 hours Category Date Time Status IR paracentesis ultrasound [IR] Routine IR 10/27/16 Completed Date of admission: 10/16/16 17:34 Primary care physician: PCP NONE Consults: 10/16/16 19:46 Consult to Critical Care [CONS] Routine Consulting Provider: [facility] Reason for Consult: Hepatic encephalopathy Time Notified: 16:30 Call Completed: Yes 10/16/16 19:48 Consult to Nurse (W&C) [CONS] Routine Reason For Exam: Reason for SW Consult: Discharge planning 10/19/16 12:50 Consult to Palliative Care [CONS] Routine Comment: Consulting Provider: [facility] Reason for Consult: End of stage planning Call Completed: No 10/20/16 11:05 Consult to Nephrology [CONS] Routine Consulting Provider: Stanley Calles Reason for Consult: 76yo F with history of SNOWDEN, cirrhosis, recurrent hepatic encephalopathy presented for hepatic encephalopathy. Patient has worsening kidney function. Please consult and recommend on possible Acute kidney injury ATN vs Hepatorenal Syndrome. Time Notified: 11:10 Call Completed: Yes Hospital course: Ms. Flores is a 76 year old female - Time Spent with Patient Total time spent providing and/or coordinating discharge services: - Constitutional Vitals: Temp Pulse Resp BP Pulse Ox 97.7 F 47 14 111/49 100 10/29/16 07:34 10/29/16 07:34 10/29/16 07:34 10/29/16 07:34 10/29/16 07:34 - Attending Attestation I examined this patient and my medical decision-making was reviewed with the Resident Physician. I agree with the documented findings, disposition and treatment plan as described except to the extent set forth below.
--- NOTE | 2016-10-29 07:40 | Palliative Progress Note ---
Date of Encounter: 10/29/16 Time of Encounter: 06:50 - Assessment and plan (1) Cirrhosis Current Visit: Yes Status: Chronic Assessment and plan: INR is now 1.6 albumins at 3.1 however the patient has had albumin placement. 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 Qualifiers: Hepatic cirrhosis type: unspecified hepatic cirrhosis Ascites presence: with ascites Qualified Code(s): K74.60 - Unspecified cirrhosis of liver (2) Acute encephalopathy Current Visit: No Status: Acute (3) Unresponsive Current Visit: No Status: Acute Assessment and plan: Markedly improved from yesterday and possibly even the day before. Seems to have had felt the patient was preeminent last night but now the patient's much more awake this may be a lucid interval. (4) Acute kidney insufficiency Current Visit: No Status: Acute (5) Goals of care, counseling/discussion Current Visit: Yes Status: Acute Assessment and plan: CODE STATUS now DNR Comfort Care patient is going to go hospice today. It is to be delivered this morning patient would discharged afterward go home with [facility] hospice. As for hospice as a combination of worsening renal failure with no dialysis, as well as liver failure. - Time Spent With Patient Total time spent is greater than 50% in coordination of care (as documented) at patient's floor/unit and/or counseling patient: - Subjective Interval history: Awake and able to communicate with family. Sleep gruff telling people leave her alone, however awake and she has been. No Complaints of except people bothering her. - Constitutional Vitals: Abnormal lab results RBC 2.94 M/mcL (3.82-4.97) L 10/29/16 03:40 Hgb 8.8 g/dL (11.5-15.4) L 10/29/16 03:40 Hct 29.1 % (35.3-44.9) L 10/29/16 03:40 MCHC 30.2 g/dL (31.6-35.5) L 10/29/16 03:40 RDW 28.1 % (11.5-14.5) H 10/29/16 03:40 Plt Count 76 K/mcL (140-400) L 10/29/16 03:40 Monocytes # 1.4 K/mcL (0.0-1.3) H 10/29/16 03:40 Nucleated RBCs/100 WBC 0.4 /100 WBC (0) H 10/29/16 03:40 Platelet Estimate Marked Decrease (Normal) L 10/29/16 03:40 Large Platelets Present (Not Present) A 10/22/16 07:08 Polychromasia 1+ (Not Present) A 10/29/16 03:40 Hypochromasia Present (Not Present) A 10/20/16 22:55 Poikilocytosis 2+ (Not Present) A 10/29/16 03:40 Anisocytosis 2+ (Not Present) A 10/29/16 03:40 Microcytosis Present (Not Present) A 10/25/16 05:05 Macrocytosis Present (Not Present) A 10/24/16 03:59 [place] Cells 1+ (Not Present) A 10/29/16 03:40 Rouleaux Present (Not Present) A 10/20/16 22:55 PT 17.7 Seconds (9.4-12.1) H 10/26/16 04:00 ABG pCO2 33 mmHg (35-45) L 10/21/16 10:50 ABG pO2 36 mmHg (85-104) L* 10/21/16 10:50 ABG HCO3 19 mEq/L (21-27) L 10/21/16 10:50 ABG O2 Saturation 67 % (95-98) L 10/21/16 10:50 ABG Base Excess -5.6 mEq/L (-2.0 to 3.0) L 10/21/16 10:50 Chloride 115 mEq/L (98-109) H 10/29/16 03:40 Carbon Dioxide 14 mEq/L (19-29) L 10/29/16 03:40 BUN 85 mg/dL (7-20) H 10/29/16 03:40 Creatinine 4.36 mg/dL (0.57-1.11) H 10/29/16 03:40 Est GFR ( Amer) 12 (> 60) L 10/29/16 03:40 Est GFR (Non-Af Amer) 10 (> 60) L 10/29/16 03:40 Glucose 123 mg/dL (70-99) H 10/29/16 03:40 POC Glucose 154 (58-89) H 10/28/16 16:36 Calculated Osmolality 319 (280-300) H 10/29/16 03:40 Lactic Acid 2.5 mmol/L (0.5-2.2) H 10/17/16 05:05 Calcium 8.5 mg/dL (8.6-10.8) L 10/29/16 03:40 Total Bilirubin 1.8 mg/dL (0.2-1.2) H 10/28/16 04:10 Direct Bilirubin 0.8 mg/dL (0.0-0.5) H 10/16/16 15:57 Albumin 3.1 g/dL (3.5-5.0) L 10/28/16 04:10 Ur Specimen Adequacy See below A 10/19/16 09:59 Urine Clarity Cloudy (Clear) A 10/19/16 09:59 Ur Specific [place] 1.026 (1.010-1.025) H 10/19/16 09:59 Urine Protein 30 mg/dL (Neg-Trace) H 10/19/16 09:59 Urine Ketones Trace mg/dL (Negative) H 10/19/16 09:59 Urine Blood Trace (Negative) H 10/19/16 09:59 Ur Leukocyte Esterase Small (Negative) H 10/19/16 09:59 Urine Microscopic RBC 3-5 per hpf (0-3) H 10/19/16 09:59 Urine Microscopic WBC 5-15 per hpf (0-3) H 10/19/16 09:59 Ur Squamous Epith Cells Many per lpf (None-Few) H 10/19/16 09:59 Ur Culture Indicated? YES (NO) A 10/19/16 09:59 Urine Opiates Screen Positive ng/mL (Xxdrok=679) H 10/16/16 17:38 U Benzodiazepines Scrn Positive ng/mL (Fzwish=301) H 10/16/16 17:38 General appearance: Present: no acute distress - Head Head exam: Present: atraumatic, normal inspection - Eye Eye exam: Present: normal appearance - ENT ENT exam: Present: mucous membranes moist - Respiratory Respiratory exam: Present: decreased breath sounds - Cardiovascular Cardiovascular exam: Present: RRR - GI/Abdominal GI/Abdominal exam: Present: normal bowel sounds, soft. Absent: tenderness - Extremities Exam Extremities exam: Absent: tenderness - Neurological Exam Neurological exam: Present: alert. Absent: oriented X3 - Psychiatric Psychiatric exam: Absent: agitated, anxious (Except when jostled a bit too much she does become somewhat agitated) - Skin Skin exam: Present: dry, warm Palliative Quality Palliative Quality: Screen for Code Status: Yes, Screen for Goals of Care: Yes, Screen for Pain: Yes, If Pain Regimen Started, Initiate Bowel Regimen: Yes, Screen for Nausea/Vomitting: Yes Code Status: 10/16/16 18:30 Resuscitation Status: Active [RES] Routine Comment: Resuscitation Status: DNR-Comfort Care-Arrest 10/19/16 10:05 Resuscitation Status: Active [RES] Routine Comment: Resuscitation Status: [id number]-[id number] - Labs CBC & Chem 7: 10/29/16 03:40 10/29/16 03:40 Labs: Laboratory Results - last 24 hr 10/28/16 10/28/16 10/28/16 06:39 08:24 11:43 WBC RBC Hgb Hct MCV MCH MCHC RDW Plt Count MPV Immature Gran % 0.6 Seg Neutrophils % 77.9 Lymphocytes % 8.4 Monocytes % 10.1 Eosinophils % 2.8 Basophils % 0.2 Neutrophils # 7.2 Lymphocytes # 0.8 Monocytes # 0.9 Eosinophils # 0.3 Basophils # 0.0 Nucleated RBCs/100 WBC Platelet Estimate Decreased L Immature Plt Fraction Polychromasia 1+ A Poikilocytosis Anisocytosis 3+ A [place] Cells 1+ A Sodium Potassium Chloride Carbon Dioxide BUN Creatinine Est GFR ( Amer) Est GFR (Non-Af Amer) BUN/Creatinine Ratio Glucose POC Glucose 143 H 179 H Calculated Osmolality Calcium 10/28/16 10/29/16 10/29/16 16:36 03:40 03:40 WBC 10.8 RBC 2.94 L Hgb 8.8 L Hct 29.1 L MCV 99.0 MCH 29.9 MCHC 30.2 L RDW 28.1 H Plt Count 76 L MPV 11.6 Immature Gran % 0.7 Seg Neutrophils % 74.5 Lymphocytes % 8.7 Monocytes % 12.6 Eosinophils % 3.1 Basophils % 0.4 Neutrophils # 8.1 Lymphocytes # 0.9 Monocytes # 1.4 H Eosinophils # 0.3 Basophils # 0.0 Nucleated RBCs/100 WBC 0.4 H Platelet Estimate Marked Decrease L Immature Plt Fraction 5.4 Polychromasia 1+ A Poikilocytosis 2+ A Anisocytosis 2+ A [place] Cells 1+ A Sodium 141 Potassium 4.2 Chloride 115 H Carbon Dioxide 14 L BUN 85 H Creatinine 4.36 H Est GFR ( Amer) 12 L Est GFR (Non-Af Amer) 10 L BUN/Creatinine Ratio 19 Glucose 123 H POC Glucose 154 H Calculated Osmolality 319 H Calcium 8.5 L - ABG Interpretation ABG results: ABG ABG pH 7.37 pH Units (7.32-7.45) 10/21/16 10:50 ABG pCO2 33 mmHg (35-45) L 10/21/16 10:50 ABG pO2 36 mmHg (85-104) L* 10/21/16 10:50 ABG O2 Saturation 67 % (95-98) L 10/21/16 10:50 PT/INR, D-dimer PT 17.7 Seconds (9.4-12.1) H 10/26/16 04:00 Consult Discharge Plan - Plan Referrals: Travis Deng Jr, MD [Non-Partnered Physician] - (call and left a message...) Prescriptions: HYDROmorphone [Dilaudid] 1 mg PO Q4HR PRN #30 tablet PRN Reason: sob or pain LORazepam Oral Conc [Ativan Oral Conc] 1 mg PO Q3H PRN #30 mls PRN Reason: anxiety or sob Sennosides/Docusate Sodium [Senna Plus] 1 each PO DAILY #10 tablet
--- NOTE | 2016-10-29 07:45 | Event Note ---
Date of Encounter: 10/29/16 Time of Encounter: 07:43 Hospice medical office asst certification of terminal illness: Hospice benefit. Start: 10/29/2016 Hospice benefit. In: +90 days Palliative performance scale: 30% at best History: Patient has a history of liver failure, which is required multiple paracentesis actually weekly last 6 months or more. Had multiple bouts of hepatic encephalopathy, now has renal failure superimposed upon the liver failure. He does not wish to have dialysis and the patient's GFR is now at 10 wishes to have no further aggressive care other than possible air centesis. Her liver function nearly meets hospice criteria and her kidney function definitely does the combination certainly argues for hospice care and therefore I find These findings support a life expectancy of 6 months or less. I attest that I have compose the above narrative based on my review of the patient's medical records, and or on my examination of the patient. Dave Cristobal M.D. Associate medical customer service representative. [facility]
[2016-10-29 07:47] VITALS: BP 111/49
--- NOTE | 2016-10-29 08:57 | Nephrology Progress Note ---
Date of Encounter: 10/29/16 Time of Encounter: 08:30 - Assessment and Plan (1) Acute kidney injury superimposed on chronic kidney disease Current Visit: Yes Status: Acute SAUL superimposed on CKD 4. Renal fct worsening 4.36, no documented urine output. Hospice care. Subjective Principal diagnosis: Hepatic Encephalopathy Interval history: Laying on right side, sleeping. Son at bedside, states mother awake earlier and appropriate. States being sent home under hospice care. Objective - Vital Signs Vital signs: Vital Signs Temp Pulse Resp BP Pulse Ox 10/29/16 07:34 97.7 F 47 14 111/49 100 10/28/16 19:02 97.5 F L 45 19 125/72 93 10/28/16 16:27 97.4 F L 57 15 132/53 80 10/28/16 11:33 98.2 F 48 16 117/58 100 Intake and Output 10/28/16 10/29/16 10/29/16 23:59 07:59 15:59 Intake Total 1000 / 1000 1000 / 1000 Output Total 100 / 100 Balance 1000 / 1000 900 / 900 Intake: IV Fluids 1000 / 1000 1000 / 1000 0.9 % Sodium Chloride 1, 1000 / 1000 1000 / 1000 000 ML @ 75 mls/hr IVC . [id number] JANKI Rx#: [id number] Oral 0 / 0 0 / 0 Output: Catheter 100 / 100 Other: Meal Dinner Percent of Meal Consumed 0% Stool Size Moderate Stool Consistency loose Stool Color Brown # Bowel Movements 1 Blood Glucose* 132 126 - General Appearance General appearance: Present: chronically ill, frail EENT: Present: mucous membranes moist Neck: Present: no JVD Respiratory: Present: clear Cardiology: Present: no edema, regular rate, regular rhythm Gastrointestinal: Present: hypoactive bowel sounds, distended Integumentary: Present: warm and dry - Lab 10/29/16 03:40 10/29/16 03:40 Most recent lab results ABG pH 7.37 pH Units (7.32-7.45) 10/21/16 10:50 ABG pCO2 33 mmHg (35-45) L 10/21/16 10:50 ABG pO2 36 mmHg (85-104) L* 10/21/16 10:50 ABG HCO3 19 mEq/L (21-27) L 10/21/16 10:50 ABG O2 Saturation 67 % (95-98) L 10/21/16 10:50 Calcium 8.5 mg/dL (8.6-10.8) L 10/29/16 03:40 Phosphorus 3.0 mg/dL (2.3-4.7) 10/16/16 15:57 Magnesium 2.1 mg/dL (1.6-2.6) 10/25/16 05:05 Urine Creatinine 128 mg/dL 10/19/16 08:36 Urine Sodium 25.0 mEq/L 10/20/16 11:30 - VTE Documentation of Mechanical Device: Intermittent pneumatic compression device Consult Discharge Plan - Plan Referrals: Travis Deng Jr, MD [Non-Partnered Physician] - (call and left a message...) Prescriptions: HYDROmorphone [Dilaudid] 1 mg PO Q4HR PRN #30 tablet PRN Reason: sob or pain LORazepam Oral Conc [Ativan Oral Conc] 1 mg PO Q3H PRN #30 mls PRN Reason: anxiety or sob Sennosides/Docusate Sodium [Senna Plus] 1 each PO DAILY #10 tablet
[2016-10-29] MEDS: Aspirin 81 MG TAB.CHEW PO SCH (09:21)
[2016-10-29] MEDS: Insulin DETEMIR 100 UNIT/ML X5UNITS SQ SCH (09:22)
[2016-10-29] MEDS: FLUoxetine 20 MG CAPSULE PO SCH (09:22)
[2016-10-29] MEDS: *HR* HYDROmorphone 2 MG/ML SYRINGE IVP PRN (12:19)
== END 2016-10-29 13:23 | disposition hospice, home (50) | DRG 441 ==
LOC: EMEROO 15:41 → SUATTDRO 17:34 → ICNU 17:34 → 2ANU 10-22 18:14
PROVIDERS: ADMIT Nurse Practitioner Acute Care; ATTEND Internal Medicine